=== PATIENT | male | born 1945 | race Caucasian/White ===

== ENCOUNTER 2019-11-01 09:28 | Outpatient (CLI) | payer MEDICARE, OTHER, SELFPAY ==
[2019-11-01 10:17] LABS: Hematocrit 43.1 % (42.0-52.0); Hemoglobin 14.9 g/dL (14.0-18.0); Mean Corpuscular HGB Conc 34.6 g/dl (32-36); Mean Corpuscular Hemoglobin 31.9 pg (26-34); Mean Corpuscular Volume 92.3 fl (80-100); Mean Platelet Volume 10.1 fl (7.4-10.4); Platelet Count Result 297 k/mm3 (150-375); Red Blood Count 4.67 M/mm3 (4.6-6.20); Red Cell Distribution Width 12.8 % (11.5-14.5); White Blood Count 8.2 K/mm3 (4.5-10.0)
[2019-11-01 10:45] LABS: Alanine Aminotransferase 21 U/L (4-50); Alkaline Phosphatase 80 U/L (38-126); Aspartate Amino Transferase 19 U/L (17-59); Bilirubin,Total 0.9 mg/dL (0.2-1.3); Blood Urea Nitrogen 15 mg/dL (9-20); Calcium 9.2 mg/dL (8.4-10.2); Carbon Dioxide 30 mmol/L (22-30); Chloride 96 mmol/L (98-107); Cholesterol 158 mg/dL (0-200); Estimated Glomerular Filt Rate 59; Glucose 121 mg/dL (75-110); HDL Direct 22 mg/dL; Potassium 3.4 mmol/L (3.4-5.0); Sodium 137 mmol/L (137-145); Triglycerides 262 mg/dL (<150)
[2019-11-01 10:56] LABS: LDL Cholesterol Direct 82 mg/dL
[2019-11-01 18:25] LABS: Hemoglobin A1C 6.1 % (<5.7)
== END 2019-11-01 09:29 | disposition home or self-care (01) ==
PROVIDERS: PCP Family Medicine; Visit Provider Physician Assistant
DX: R73.01 Impaired fasting glucose (principal)
CPT/HCPCS: 36415; 80053; 80061; 83036; 84443; 85027

== ENCOUNTER 2019-12-04 13:55 | Outpatient (CLI) | payer MEDICARE, OTHER, SELFPAY ==
--- NOTE | ~2019-12-04 | US_ITS ---
EXAMINATION: US venous doppler LE EXAM DATE: 12/04/2019 14:34 INDICATION: Right leg swelling. DVT. TECHNIQUE: Multiple grayscale, color flow and Doppler images of the right lower extremity deep venous system obtained and reviewed. Comparison is made to prior examination from 10/18/2014. FINDINGS: RIGHT SIDE Common femoral: -------- Normal. Profunda femoral: ------- Normal. Femoral: Normal. Popliteal: Normal. Posterior tibial: ---------Thrombosed. Peroneal: Thrombosed. Gastrocnemius: Not visualized. Soleus: Not visualized. Greater saphenous: ----- Normal. Lesser saphenous: ------ Not visualized. IMPRESSION: Positive for right calf DVT. I discussed DVT with Dr. Tejeda at 12/04/2019 14:41 CDT . Reviewed, dictated and finalized at location B.
[2019-12-04 15:32] LABS: Basophils Absolute Auto 0.1 K/mm3 (0.0-0.1); Eosinophils Absolute Auto 0.4 K/mm3 (0-0.3); Eosinophils Percent Auto 4.3 % (0-4.4); Hemoglobin 15.3 g/dL (14.0-18.0); Immature Granulocyte Absolute 0.02 K/mm3 (0.00-0.031); Immature Granulocyte Percent A 0.2 % (0-0.5); Lymphocytes Absolute Auto 2.49 K/mm3 (0.9-3.2); Lymphocytes Percent Auto 30.3 % (18.3-44.2); Mean Corpuscular Hemoglobin 32.5 pg (26-34); Mean Corpuscular Volume 95.5 fl (80-100); Monocytes Absolute Auto 0.9 K/mm3 (0.1-0.6); Monocytes Percent Auto 10.7 % (2.6-8.5); Neutrophils Absolute Auto 4.4 K/mm3 (1.3-6.7); Neutrophils Percent Auto 53.5 % (45.5-73.1); Platelet Count Result 295 k/mm3 (150-375); Red Blood Count 4.71 M/mm3 (4.6-6.20); Red Cell Distribution Width 12.9 % (11.5-14.5); White Blood Count 8.2 K/mm3 (4.5-10.0)
[2019-12-04 15:48] LABS: Alanine Aminotransferase 20 U/L (4-50); Albumin Level 4.3 g/dL (3.5-5.1); Alkaline Phosphatase 81 U/L (38-126); Aspartate Amino Transferase 22 U/L (17-59); Bilirubin,Total 0.5 mg/dL (0.2-1.3); Blood Urea Nitrogen 18 mg/dL (9-20); Calcium 9.8 mg/dL (8.4-10.2); Carbon Dioxide 36 mmol/L (22-30); Chloride 97 mmol/L (98-107); Estimated Glomerular Filt Rate > 60; Glucose 108 mg/dL (75-110); Potassium 3.9 mmol/L (3.4-5.0); Sodium 138 mmol/L (137-145)
== END 2019-12-04 13:56 | disposition home or self-care (01) ==
PROVIDERS: PCP Family Medicine; Visit Provider Physician Assistant
DX: R60.0 Localized edema (principal); F32.9 Major depressive disorder, single episode, unspecified; I10 Essential (primary) hypertension; I82.4Z1 Acute embolism and thrombosis of unspecified deep veins of right distal lower extremity
CPT/HCPCS: 36415; 80053; 85025; 93971

== ENCOUNTER 2020-01-01 17:07 | Outpatient (CLI) | payer MEDICARE, OTHER, SELFPAY ==
--- NOTE | ~2020-01-01 | US_ITS ---
EXAMINATION: US venous doppler [facility] EXAM DATE: 01/01/2020 17:34 INDICATION: Bilateral lower extremity pain. TECHNIQUE: Multiple grayscale, color flow and Doppler images of the lower extremity deep venous syste ms bilaterally were obtained and reviewed. Comparison is made to prior examination from 12/04/2019. FINDINGS: Right side: The right common femoral, femoral and profunda veins demonstrate normal color flow, respi ratory variation, augmentation and compressibility. Compressibility, color flow confirmed within the right popliteal, posterior tibial, peroneal, and greater saphenous veins. Left side: The left common femoral, femoral and profunda veins demonstrate normal color flow, respira tory variation, augmentation and compressibility. Compressibility, color flow confirmed within the l eft popliteal, posterior tibial, peroneal, and greater saphenous veins. IMPRESSION: 1. No lower extremity deep venous thrombosis bilaterally. Reviewed, dictated and finalized at location A.
== END 2020-01-01 17:08 | disposition home or self-care (01) ==
PROVIDERS: PCP Family Medicine; Visit Provider Physician Assistant
DX: R60.0 Localized edema (principal); M79.605 Pain in left leg; M79.604 Pain in right leg
CPT/HCPCS: 93970

== ENCOUNTER 2020-01-05 11:45 | Outpatient (CLI) | payer MEDICARE, OTHER, SELFPAY ==
[2020-01-05 12:19] LABS: Basophils Absolute Auto 0.1 K/mm3 (0.0-0.1); Basophils Percent Auto 0.8 % (0.2-1.2); Eosinophils Absolute Auto 0.3 K/mm3 (0-0.3); Eosinophils Percent Auto 3.6 % (0-4.4); Hematocrit 44.2 % (42.0-52.0); Hemoglobin 15.4 g/dL (14.0-18.0); Immature Granulocyte Absolute 0.03 K/mm3 (0.00-0.031); Immature Granulocyte Percent A 0.4 % (0-0.5); Lymphocytes Absolute Auto 2.72 K/mm3 (0.9-3.2); Mean Corpuscular HGB Conc 34.8 g/dl (32-36); Mean Corpuscular Hemoglobin 32.6 pg (26-34); Mean Corpuscular Volume 93.6 fl (80-100); Monocytes Absolute Auto 0.9 K/mm3 (0.1-0.6); Monocytes Percent Auto 11.1 % (2.6-8.5); Neutrophils Percent Auto 50.1 % (45.5-73.1); Platelet Count Result 320 k/mm3 (150-375); Red Blood Count 4.72 M/mm3 (4.6-6.20); Red Cell Distribution Width 12.5 % (11.5-14.5)
== END 2020-01-05 11:46 | disposition home or self-care (01) ==
PROVIDERS: PCP Family Medicine; Visit Provider Physician Assistant
DX: R23.3 Spontaneous ecchymoses (principal); I10 Essential (primary) hypertension
CPT/HCPCS: 36415; 84443; 85025

== ENCOUNTER 2020-01-12 13:42 | Outpatient (CLI) | payer MEDICARE, OTHER, SELFPAY ==
[2020-01-12 14:24] LABS: NT Pro B Type Natriuretic Pept 77 PG/ML (5-100)
[2020-01-12 14:26] LABS: D Dimer 0.35 ug/mL (<0.48)
== END 2020-01-12 13:43 | disposition home or self-care (01) ==
PROVIDERS: PCP Family Medicine; Visit Provider Physician Assistant
DX: R06.02 Shortness of breath (principal)
CPT/HCPCS: 36415; 83880; 85380

== ENCOUNTER 2020-01-29 15:16 | Outpatient (CLI) | payer MEDICARE, OTHER, SELFPAY ==
[2020-01-29 16:27] LABS: Blood Urea Nitrogen 21 mg/dL (9-20); Calcium 9.4 mg/dL (8.4-10.2); Carbon Dioxide 32 mmol/L (22-30); Chloride 100 mmol/L (98-107); Estimated Glomerular Filt Rate > 60; Glucose 88 mg/dL (75-110); Potassium 3.6 mmol/L (3.4-5.0); Sodium 138 mmol/L (137-145)
== END 2020-01-29 15:17 | disposition home or self-care (01) ==
PROVIDERS: PCP Family Medicine; Visit Provider Physician Assistant
DX: R60.0 Localized edema (principal); I10 Essential (primary) hypertension
CPT/HCPCS: 36415; 80048

== ENCOUNTER 2020-01-30 14:36 | Outpatient (CLI) | payer MEDICARE, OTHER, SELFPAY ==
[2020-01-30 15:28] LABS: Blood Urea Nitrogen 18 mg/dL (9-20); Calcium 8.9 mg/dL (8.4-10.2); Carbon Dioxide 32 mmol/L (22-30); Chloride 101 mmol/L (98-107); Estimated Glomerular Filt Rate > 60; Glucose 113 mg/dL (75-110); Potassium 3.9 mmol/L (3.4-5.0); Sodium 139 mmol/L (137-145)
== END 2020-01-30 14:37 | disposition home or self-care (01) ==
PROVIDERS: PCP Family Medicine; Visit Provider Internal Medicine Cardiovascular Disease
DX: R60.0 Localized edema (principal); N18.9 Chronic kidney disease, unspecified
CPT/HCPCS: 36415; 80048

== ENCOUNTER 2020-03-17 09:29 | Emergency (ER) | payer MEDICARE, OTHER, SELFPAY ==
--- NOTE | ~2020-03-17 | US_ITS ---
EXAMINATION: US arterial ankle brachial ind DATE: 03/17/2020 12:44 INDICATION: Decreased peripheral pulses TECHNIQUE: Segmental pressures and plethysmographic and Doppler waveforms of the brachial and lower e xtremity arteries were obtained. COMPARISON: None. FINDINGS: Right and left brachial artery pressures of 151 mm Hg and 155 mm Hg, respectively, are concordant (no rmal difference <= 30 mmHg). The right ankle-brachial index (ALISSA) is 1.08. The right great toe-brachial index (TBI) is 0.86 (norm al >= 0.65). The right lower extremity segmental pressure gradients are normal (normal gradients <= 2 0-30 mmHg between adjacent levels on the same leg or the same levels on the two legs). Arterial Doppl er waveforms are normal. The left ALISSA is 1.1. The left TBI is 0.85. The left lower extremity segmental pressure gradients are normal. Arterial Doppler waveforms are normal. IMPRESSION: 1. Normal examination. Reviewed, dictated and finalized at location A. IMPRESSION: 1. Normal examination.
--- NOTE | ~2020-03-17 | US_ITS ---
EXAMINATION: US venous doppler [facility] DATE: 03/17/2020 12:44 INDICATION: Left lower limb pain and swelling TECHNIQUE: Pelletier scale images without and with compression and Doppler images of the left lower extrem ity veins were obtained. COMPARISON: None FINDINGS: The left common femoral vein, profunda femoral vein, femoral vein, popliteal vein, peroneal trunk, posterior tibial veins, and greater saphenous vein are patent. IMPRESSION: 1. Patent left lower extremity veins. No evidence of deep venous thrombosis. Reviewed, dictated and finalized at location A.
--- NOTE | ~2020-03-17 | CT_ITS ---
EXAMINATION: CTA abd aorta runoff DATE: 03/17/2020 12:06 INDICATION: Left leg numbness and pain TECHNIQUE: Computed tomographic angiography (CTA) of the abdomen, pelvis, and both lower extremities was performed with 150 mL Omnipaque-350 intravenous contrast. The dose-length product (DLP) was 1708. 98 mGy-cm. Maximum intensity projection 3D-reconstructions of the arteries were created by the techno [employer] on a separate workstation. Automated exposure control and iterative reconstruction technique w ere employed. COMPARISON: 12/12/2012 FINDINGS: ABDOMINAL AORTA AND ITS BRANCHES: There is calcified atherosclerosis of the aorta. There is no dissection or aneurysm of the abdominal aorta. The left renal artery is truncated at its origin related to prior left nephrectomy. The left h epatic artery arises from the left gastric artery which arises directly from the abdominal aorta. The celiac axis is otherwise normal in appearance. The superior mesenteric artery and inferior mesenteri c artery are unremarkable. Two right renal arteries are noted. PELVIC VASCULATURE: There is calcified atherosclerosis without hemodynamically significant stenosis. RIGHT LOWER EXTREMITY VASCULATURE: There is calcified atherosclerosis throughout the superficial femoral artery. There are short segment s of moderate stenosis of the distal superficial femoral artery. There is calcified atherosclerosis a nd mild stenosis of the distal popliteal artery. There is calcified atherosclerosis and mild stenosis of the tibial peroneal trunk. There is calcified atherosclerosis without significant stenosis involv ing the proximal posterior tibial artery. The anterior tibial and peroneal arteries are unremarkable. There is a three-vessel runoff at the ankle. LEFT LOWER EXTREMITY VASCULATURE: There is calcified atherosclerosis throughout the superficial femoral artery with some areas of mild stenosis. The popliteal artery demonstrates atherosclerosis without hemodynamically significant steno sis. There is calcified atherosclerosis of the tibial peroneal trunk without hemodynamically signific ant stenosis. Calcified atherosclerosis without significant stenosis is also noted involving the prox imal posterior tibial artery. The anterior tibial and peroneal arteries are unremarkable. There is a three-vessel runoff at the ankle. ADDITIONAL FINDINGS: There is a 9 mm cyst in the left hepatic lobe. The gallbladder, spleen, pancreas, and adrenal glands are normal. The left kidney is surgically absent. Cysts of the right kidney measure up to 3.5 cm. No pathologically enlarged abdominal or pelvic lymph nodes are identified. There is no free intraperiton eal gas or evidence of bowel obstruction. A moderate volume of colonic stool is present. There is sev ere lumbar spondylosis. Bilateral total hip arthroplasties are noted. IMPRESSION: 1. Arterial disease as detailed above. Reviewed, dictated and finalized at location A.
[2020-03-17 09:30] VITALS: BP 150/71; PULSE 61; RESP 17; TEMP 36.2; O2SAT 100
[2020-03-17 11:12] LABS: Basophils Absolute Auto 0.1 K/mm3 (0.0-0.1); Basophils Percent Auto 0.9 % (0.2-1.2); Eosinophils Absolute Auto 0.2 K/mm3 (0-0.3); Eosinophils Percent Auto 3.1 % (0-4.4); Hematocrit 45.2 % (42.0-52.0); Hemoglobin 15.9 g/dL (14.0-18.0); Immature Granulocyte Absolute 0.04 K/mm3 (0.00-0.031); Immature Granulocyte Percent A 0.5 % (0-0.5); Lymphocytes Absolute Auto 2.36 K/mm3 (0.9-3.2); Lymphocytes Percent Auto 30.3 % (18.3-44.2); Mean Corpuscular HGB Conc 35.2 g/dl (32-36); Mean Corpuscular Hemoglobin 32.6 pg (26-34); Mean Corpuscular Volume 92.6 fl (80-100); Mean Platelet Volume 9.9 fl (7.4-10.4); Monocytes Absolute Auto 0.8 K/mm3 (0.1-0.6); Monocytes Percent Auto 10.4 % (2.6-8.5); Neutrophils Absolute Auto 4.3 K/mm3 (1.3-6.7); Neutrophils Percent Auto 54.8 % (45.5-73.1); Platelet Count Result 295 k/mm3 (150-375); Red Blood Count 4.88 M/mm3 (4.6-6.20); Red Cell Distribution Width 13.2 % (11.5-14.5); White Blood Count 7.8 K/mm3 (4.5-10.0)
[2020-03-17 11:22] LABS: INR 2.2; Prothrombin Time 24.2 Seconds (11.1-14.7)
[2020-03-17 11:23] LABS: Partial Thromboplastin Time 50.6 SECONDS (22.3-36.8)
[2020-03-17 11:31] LABS: Blood Urea Nitrogen 19 mg/dL (9-20); CRP 0.9 mg/dL (<1.0); Calcium 8.7 mg/dL (8.4-10.2); Carbon Dioxide 29 mmol/L (22-30); Chloride 102 mmol/L (98-107); Estimated CRCL calculation 72 ml/min; Estimated Glomerular Filt Rate > 60; Glucose 109 mg/dL (75-110); Potassium 3.8 mmol/L (3.4-5.0); Sodium 138 mmol/L (137-145)
[2020-03-17 12:04] LABS: Erythrocyte Sedimentation Rate 19 mm/hr (0-20)
--- NOTE | 2020-03-17 12:06 | ED.LOWEXIN ---
HPI - Extremity Injury (Lower) General Chief Complaint: Extremity Injury, Lower <Ana Ornelas PA-C - Last Filed: 03/17/20 14:35> Stated Complaint: left leg numbness, leg pain <Ana Ornelas PA-C - Last Filed: 03/17/20 14:35> Time Seen by Provider: 03/17/20 10:14 <Ana Ornelas PA-C - Last Filed: 03/17/20 14:35> Source: patient <Ana Ornelas PA-C - Last Filed: 03/17/20 14:35> Mode of arrival: ambulatory <FABIO Nixon Last Filed: 03/17/20 14:35> Limitations: no limitations <Ana Ornelas PA-C - Last Filed: 03/17/20 14:35> History of Present Illness HPI Narrative: This is a 75-year-old male that presents the emergency department for left lower extremity pain since yesterday. No known injury or trauma. Reports pain starts in the left groin and radiates to the knee. Reports tingling from his knee into his toes on the left leg. Reports history of DVT in the right leg and is currently on Xarelto. Reports edema to both of the lower extremities. Denies fever or erythema. <nAa Ornelas PA-C - Last Filed: 03/17/20 14:35> Related Data Home Medications: Home Medications Medication Instructions Recorded Confirmed aspirin 81 mg tablet,delayed 81 mg PO DAILY 08/17/19 release <Ana Ornelas PA-C - Last Filed: 03/17/20 14:35> Allergies/Adverse Reactions: Allergies Allergy/AdvReac Type Severity Reaction Status Date / Time morphine Allergy Unknown Confusion Verified 03/17/20 09:38 <FABIO Nixon Last Filed: 03/17/20 14:35> Review of Systems Review of Systems: Narrative: CONSTITUTIONAL: Denies fever SKIN: Denies rash MUSCULOSKELETAL: Reports joint pain, and myalgia. NEUROLOGIC: Denies numbness, or weakness. <FABIO Nixon Last Filed: 03/17/20 14:35> All systems reviewed & are unremarkable except as noted in HPI and below <Ana Ornelas PA-C - Last Filed: 03/17/20 14:35> [facility] Past Medical History Medical History: Medical History (Updated 03/17/20 @ 14:34 by Ana Ornelas PA-C) Acute pain of left knee Bilateral lower extremity edema Edema of left lower extremity Hearing loss IFG (impaired fasting glucose) Pain of right lower leg Right leg DVT Shortness of breath Vision abnormalities Weight gain <Ana Ornelas PA-C - Last Filed: 03/17/20 14:35> Surgical History Surgical History: Surgical History (Updated 10/11/19 @ 12:45 by Cecily Peck, RT(R)) H/O colectomy 28 H/O left nephrectomy History of appendectomy Hx of bilateral hip replacements <Ana Ornelas PA-C - Last Filed: 03/17/20 14:35> Social History Social History: Social History Smoking status: Former smoker Second hand tobacco smoke exposure: No Smoking end date: 08/30/03 Alcohol intake: current Drinks per week: 6 Substance use: never Substance use type: does not use Gender identity (if verbalized by the patient): Male <Ana Ornelas PA-C - Last Filed: 03/17/20 14:35> Exam Narrative: Exam Narrative: GENERAL: Well-appearing, well-nourished, and in no acute distress. HEAD: Normocephalic, atraumatic. EYES: EOMI. CHEST: Clear to auscultation. No respiratory distress. No wheezes rales or rhonchi HEART: Regular rate and rhythm. No murmur heard. Normal peripheral pulses. BACK: No midline spinal tenderness EXTREMITIES: Normal range of motion. Mild pitting edema to the bilateral lower extremities. No erythema or warmth. Strength equal in bilateral lower extremities (5/5). Could not obtain DP pulses by Doppler. Posterior tibial pulses were obtained bilaterally SKIN: Warm, dry, no rash. NEURO: No focal deficits. Alert and oriented x3. PSYCH: Normal mood and affect <Ana Ornelas PA-C - Last Filed: 03/17/20 14:35> Course Consultations Consultation #1: Spoke with patient's primary about work-up will follow-up in cli
[2020-03-17 13:29] VITALS: BP 166/82; PULSE 61; RESP 17; TEMP 36.6; O2SAT 97
[2020-03-17] MEDS: KETOROLAC 30 MG/ML VIAL (*BKC) IV PUSH (14:20)
== END 2020-03-17 15:00 | disposition home or self-care (01) ==
PROVIDERS: Physician Assistant; Emergency Provider General Practice; PCP Family Medicine
DX: M79.652 Pain in left thigh (principal); Z79.01 Long term (current) use of anticoagulants; Z86.718 Personal history of other venous thrombosis and embolism; Z87.891 Personal history of nicotine dependence; Z79.82 Long term (current) use of aspirin; I70.203 Unspecified atherosclerosis of native arteries of extremities, bilateral legs; I70.8 Atherosclerosis of other arteries; I70.0 Atherosclerosis of aorta; K76.89 Other specified diseases of liver; Z90.49 Acquired absence of other specified parts of digestive tract; Z96.643 Presence of artificial hip joint, bilateral
CPT/HCPCS: 36415; 75635; 80048; 85025; 85610; 85652; 85730; 86140; 93922; 93971; 96365; 96375; 99284; J0131; J1885; J3360; Q9967

== ENCOUNTER 2020-05-21 03:33 | Outpatient (CLI) | payer MEDICARE, OTHER, SELFPAY ==
[2020-05-21 20:04] LABS: SARS-CoV-2 RNA PCR Negative
== END 2020-05-21 03:34 | disposition home or self-care (01) ==
LOC: ANHCOVIDDT 03:33
PROVIDERS: PCP Family Medicine; Visit Provider Internal Medicine Critical Care Medicine
DX: Z01.812 Encounter for preprocedural laboratory examination (principal); Z20.828 Contact with and (suspected) exposure to other viral communicable diseases
CPT/HCPCS: 87635; C9803; U0003

== ENCOUNTER 2020-05-23 08:02 | Outpatient (CLI) | payer MEDICARE, OTHER, SELFPAY ==
--- NOTE | 2020-06-09 21:51 | SLEEP_ITS ---
CPAP TITRATION. DATE OF STUDY: 05/23/2020 REASON FOR THIS STUDY: History of sleep apnea on CPAP, 6 cm no longer effective. HISTORY: This patient is a 75-year-old man, 73 inches tall, weighing 275 pounds with a body mass index of 36.3. He has been on CPAP for many years, currently has been using his third device, which he received a few months ago. He uses it regularly, but it does not benefit him as much as it did initially. He wakes with a dry mouth, drinks a large glass of water when he wakes in the morning. Bedtime is 9:00 p.m. to 10:00 p.m., sometimes falling asleep quickly and sometimes taking longer. He uses an [id number] medication to help him fall asleep. He wakes frequently at night feeling short of breath even while wearing CPAP. He snores loudly using CPAP, has dreams, but does not recall dream content. He wakes in the morning between 6:00 a.m. and 7:00 a.m. not feeling refreshed. His legs bother him at night with discomfort and he has a history of bilateral hip replacements. He sleeps at night, curled on his side with a pillow between his legs. He has nocturia 2-3 times per night He and his sleep in separate rooms. He sleeps up stairs and she sleeps downstairs as she is in the advanced stages of Parkinson disease in a hospital bed. He drinks very little caffeine. He falls asleep during the day, does not use CPAP with naps,takes a nap 2-3 times a week without CPAP. He occasionally has trouble sleeping with a cold and he only occasionally gasps for breath at night. He occasionally sweats excessively at night, rarely notices his heart pounding or beating irregularly at night, occasionally falls asleep involuntarily, but never while driving. He does not have loss of muscle tone with strong emotion and does not have daytime difficulties due to excessive sleepiness. He is retired. He does not feel paralyzed on waking or falling asleep. He occasionally has vivid dreamlike scenes upon awakening or falling asleep. He is never afraid to go to sleep. He rarely has nightmares. He does not remember his dreams. He rarely has racing thoughts. He denies feelings of sadness, depression, or anxiety. He rarely has muscular tension and rarely notices parts of his body jerking. He rarely kicks at night. He occasionally has crawly achy feelings in his legs, rarely has leg pain at night. He denies morning jaw pain and does not grind his teeth at night. He frequently is bothered by pain during the day, occasionally is awakened by pain at night. He occasionally wakes up feeling stiff in the morning with sore achy muscles and pain in the neck and spine. He has bowel disturbances, stomach problems, memory problems, sexual problems, takes antacids regularly and he has frequent headaches. He has significant acid reflux. He has lost some weight in the last year. His collar size is 17.5 inches. DESCRIPTION OF STUDY: This study was conducted as a full night nocturnal polysomnogram using the [employer] multiple channel system including EOG, EEG, submental EMG, EKG, nasal and oral airflow using thermistors and nasal pressure sensors, chest and abdominal belts, body position data and pulse oximetry. Video monitoring was used. The study was scored using CMS guidelines. The [place] Sleepiness Scale Score was not completed in detail, but he did indicate increased chance of dozing with multiple episodes with a total estimate at 11. His total recording time was 465.3 minutes. Sleep time was 334.5 minutes. The sleep efficiency was 71.9%. Sleep latency was normal at 20.4 minutes. REM latency was short at 37 minutes consistent with hypersomnolence. He had 26 awakenings and spent 24.8% of the study awake after sleep onset, 110.4 minutes. Sleep architecture showed 8.5% stage I sleep, 53.
== END 2020-05-23 08:03 | disposition home or self-care (01) ==
LOC: ANHCSM 08:03
PROVIDERS: PCP Family Medicine; Visit Provider Internal Medicine Critical Care Medicine
DX: J44.9 Chronic obstructive pulmonary disease, unspecified (principal); R06.02 Shortness of breath; R00.1 Bradycardia, unspecified; M54.5 Low back pain
CPT/HCPCS: 95811

== ENCOUNTER 2020-05-30 16:22 | Emergency (ER) | payer MEDICARE, OTHER, SELFPAY ==
[2020-05-30] VITALS (21 sets, daily range): BP systolic 101–144; BP diastolic 59–103; PULSE 56–113; RESP 16–23; TEMP 36.3–36.8; O2SAT 97–100
--- NOTE | ~2020-05-30 | CT_ITS ---
EXAMINATION: CTA BRAIN/CAROTID DATE: 05/30/2020 18:43 INDICATION: Headache and blurred vision in the right eye TECHNIQUE: Computed tomographic angiography (CTA) of the head and neck was performed with 100 mL Omni paque-350 intravenous contrast. Multiplanar reconstructions and maximum intensity projection 3D-recon structions of the carotid arteries and of the intracranial arteries were created by the technologist on a separate workstation. Precontrast CT of the head was also obtained. Automated exposure control and iterative reconstruction technique were employed.The dose-length product was 1942.75 mGy-cm. COMPARISON: None. FINDINGS: Carotid arteries: There is small amount of calcified atherosclerotic plaque with 0% stenosis at both the right and left carotid bulbs relative to normal distal artery lumen diameter (NASCET criteria). Cervical soft tissu es are unremarkable. Mild emphysema in the upper lungs. Severe cervical spondylosis. Head: No acute intracranial hemorrhage, acute infarction or abnormal extra axial fluid collection. Small ol d lacunar infarct at the right basal ganglia. There is moderate scattered white matter hypoattenuatio n consistent with chronic small vessel ischemic disease. Symmetric prominence of the sulci and ventri cles consistent with moderate age-appropriate diffuse cerebral volume loss. No mass/mass effect. Cleaning ges of bilateral intraocular lens replacement. The orbits, paranasal sinuses and mastoid air cells ar e normal. Intracranial arteries There is calcite atherosclerosis without hemodynamically significant stenosis at the bilateral caroti d siphons and at the bilateral intracranial vertebral arteries which are codominant. There is no hemo dynamically significant stenosis in the basilar artery. There are no aneurysms identified. Both A1 a nd P1 segments are patent. Cerebral arterial arborization appears symmetric. IMPRESSION: 1. Small amount of atherosclerotic plaque with 0% stenosis of the left and right carotid bulbs relati ve to normal distal artery lumen diameter (NASCET criteria). 2. 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 No acute intracranial process. 3. Age-related changes in the brain including moderate diffuse volume loss and moderate scattered whi te matter hypoattenuation consistent with chronic small vessel ischemic disease. 4. Small amount of not hemodynamically significant calcite atherosclerosis at the bilateral carotid s iphons and intracranial vertebral arteries. Otherwise unremarkable cerebral angiogram. Reviewed, dictated and finalized at location A. IMPRESSION: 1. Small amount of atherosclerotic plaque with 0% stenosis of the left and righ t carotid bulbs relative to normal distal artery lumen diameter (NASCET criteri a). 2. 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 No acute intracranial process. 3. Age-related changes in the brain including moderate diffuse volume loss and moderate scattered white matter hypoattenuation consistent with chronic small v essel ischemic disease. 4. Small amount of not hemodynamically significant calcite atherosclerosis at t he bilateral carotid siphons and intracranial vertebral arteries. Otherwise unr emarkable cerebral angiogram.
--- NOTE | 2020-05-30 16:55 | ED.HA ---
HPI - Headache General Chief Complaint: Headache Stated Complaint: severe pain neck to right eye Time Seen by Provider: 05/30/20 16:48 Source: patient Mode of arrival: ambulatory Limitations: no limitations History of Present Illness HPI Narrative: Patient is a 75 yo male who presents c/o right posterior headaches x 2 days. Reports headache increasing today and is 10/10 with blurred vision to right eye onset today. He reports radiation of pain at times into right neck. He reports recent RLE DVT and is on xarelto at this time. He denies injury and denies history of migraines. He denies all other complaints at this time. MD elicited complaint: headache Onset description: suddenly Location: right, occipital and down into neck Severity: severe Quality & Timing: sharp Exacerbating factors: none Relieving factors: nothing Associated symptoms: vision loss Treatments prior to arrival: none Related Data Home Medications Medication Instructions Recorded Confirmed aspirin 81 mg tablet,delayed 81 mg PO DAILY 08/17/19 03/29/20 release furosemide 05/30/20 Allergies Allergy/AdvReac Type Severity Reaction Status Date / Time morphine Allergy Unknown Confusion Verified 05/30/20 16:27 Review of Systems Review of Systems: Narrative: CONSTITUTIONAL: Denies fever, chills, or sweats. EYES: Reports blurred vision in right eye. ENT: Denies rhinorrhea, congestion, sore throat, or otalgia. CARDIOVASCULAR: Denies chest pain, palpitations, or edema. RESPIRATORY: Denies cough or dyspnea. GASTROINTESTINAL: Denies abdominal pain, nausea, vomiting, or diarrhea. GENITOURINARY: Denies dysuria or hematuria. SKIN: Denies rash or itching. MUSCULOSKELETAL: Denies back pain, joint pain, or myalgia. NEUROLOGIC: Denies headache, numbness, dizziness, or weakness. PSYCHIATRIC: Denies anxiety or depression. Discussed with [facility] Past Medical History Medical History Acute pain of left knee Bilateral lower extremity edema COPD (chronic obstructive pulmonary disease) Edema of left lower extremity Hearing loss History of tobacco abuse IFG (impaired fasting glucose) MELANIE on CPAP Pain of right lower leg Right leg DVT Shortness of breath Vision abnormalities Weight gain Surgical History Surgical History H/O colectomy 28 H/O left nephrectomy History of appendectomy Hx of bilateral hip replacements Family History Family History Sibling Malignant neoplasm of prostate Family history of pancreatic cancer Family history of lung cancer Social History Social History Social History: , lives with his who has advanced Parkinson's disease, 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 Smoking packs per day: 3 Smoking cigarettes per day: 60.0 Years smoked: 7 Smoking pack-years: 21.00 Smoking status: Former smoker Second hand tobacco smoke exposure: No Smoking end date: 08/30/03 Alcohol intake: current Drinks per week: 6 Substance use: never Substance use type: does not use Gender identity (if verbalized by the patient): Male Exam Narrative: Exam Narrative: GENERAL: Well-appearing, well-nourished, and in no acute distress. HEAD: Normocephalic, atraumatic. EYES: EOMI. PERRLA. No redness or drainage. Conjunctiva are normal. ENT: Mucous membranes pink and moist. Nares clear. No rhinorrhea. TMs normal bilaterally. Throat normal. Uvula midline. NECK: AROM. Supple. No lymphadenopathy. CHEST: No respiratory distress. Clear to auscultation. HEART: Regular rate and rhythm. No murmur appreciated. Normal peripheral pulses. GI: Soft, nontender without rebound, or guarding. No distention. Bowel so
[2020-05-30 17:13] LABS: Basophils Absolute Auto 0.1 K/mm3 (0.0-0.1); Eosinophils Absolute Auto 0.3 K/mm3 (0-0.3); Eosinophils Percent Auto 3.3 % (0-4.4); Hematocrit 42.4 % (42.0-52.0); Hemoglobin 15.2 g/dL (14.0-18.0); Immature Granulocyte Absolute 0.06 K/mm3 (0.00-0.031); Immature Granulocyte Percent A 0.7 % (0-0.5); Lymphocytes Absolute Auto 2.58 K/mm3 (0.9-3.2); Mean Corpuscular HGB Conc 35.8 g/dl (32-36); Mean Corpuscular Hemoglobin 33.4 pg (26-34); Mean Corpuscular Volume 93.2 fl (80-100); Mean Platelet Volume 9.6 fl (7.4-10.4); Monocytes Absolute Auto 0.9 K/mm3 (0.1-0.6); Monocytes Percent Auto 9.8 % (2.6-8.5); Neutrophils Percent Auto 56.2 % (45.5-73.1); Platelet Count Result 290 k/mm3 (150-375); Red Blood Count 4.55 M/mm3 (4.6-6.20); Red Cell Distribution Width 13.3 % (11.5-14.5); White Blood Count 8.9 K/mm3 (4.5-10.0)
[2020-05-30 17:25] LABS: INR 1.7; Prothrombin Time 19.6 Seconds (11.1-14.7)
[2020-05-30 17:26] LABS: Partial Thromboplastin Time 43.4 SECONDS (22.3-36.8)
[2020-05-30 17:27] LABS: Anion Gap 6 mmol/L (8-16); Blood Urea Nitrogen 15 mg/dL (9-20); Calcium 9.6 mg/dL (8.4-10.2); Carbon Dioxide 38 mmol/L (22-30); Chloride 96 mmol/L (98-107); Estimated CRCL calculation 65 ml/min; Estimated Glomerular Filt Rate 59; Glucose 114 mg/dL (75-110); Sodium 140 mmol/L (137-145)
[2020-05-30 20:46] LABS: Erythrocyte Sedimentation Rate 19 mm/hr (0-20)
== END 2020-05-30 21:16 | disposition home or self-care (01) ==
PROVIDERS: Emergency Provider Nurse Practitioner; PCP Family Medicine
DX: R51.9 Headache, unspecified (principal); Z79.82 Long term (current) use of aspirin; J44.9 Chronic obstructive pulmonary disease, unspecified; G47.33 Obstructive sleep apnea (adult) (pediatric); Z86.718 Personal history of other venous thrombosis and embolism; Z90.49 Acquired absence of other specified parts of digestive tract; Z90.5 Acquired absence of kidney; Z96.643 Presence of artificial hip joint, bilateral; Z87.891 Personal history of nicotine dependence
CPT/HCPCS: 36415; 70496; 70498; 80048; 85025; 85610; 85652; 85730; 96365; 99284; J0131; Q9967

== ENCOUNTER 2020-06-04 11:51 | Outpatient (CLI) | payer MEDICARE, OTHER, SELFPAY ==
--- NOTE | ~2020-06-04 | US_ITS ---
EXAMINATION: US venous doppler LE RT EXAM DATE: 06/04/2020 12:14 INDICATION: History of DVT. TECHNIQUE: Multiple grayscale, color flow and Doppler images of the right lower extremity deep venous system were obtained and reviewed. Comparison is made to prior examination from 01/01/2020. FINDINGS: The right common femoral, femoral and profunda veins demonstrate normal color flow, respira tory variation, augmentation and compressibility. Compressibility, color flow confirmed within the r ight popliteal, posterior tibial, peroneal, and greater saphenous veins. IMPRESSION: 1. No right lower extremity deep venous thrombosis. Reviewed, dictated and finalized at location B.
== END 2020-06-04 11:52 | disposition home or self-care (01) ==
PROVIDERS: PCP Family Medicine; Visit Provider Internal Medicine Cardiovascular Disease
DX: Z86.718 Personal history of other venous thrombosis and embolism (principal)
CPT/HCPCS: 93971

== ENCOUNTER 2020-06-20 11:12 | Outpatient (CLI) | payer MEDICARE, OTHER, SELFPAY ==
--- NOTE | ~2020-06-20 | XR_ITS ---
MODIFIED ESOPHAGRAM HISTORY: Dysphagia with shortness of breath. TECHNIQUE: Modified barium esophagram was performed on 06/20/2020. I administered fluoroscopy and per formed the exam with speech pathologist. Patient was seated for lateral fluoroscopic imaging for ing estion of thin liquids, pudding, solids and quantified amounts, followed by thin liquids in uncontrol led amounts. This was recorded on tape. A single fluoroscopic spot image was also recorded. The DAP f or this procedure was 4.536 Gycm2. The amount of fluoroscopy time used during this procedure was 2.3 minutes. FINDINGS: Oral stage: Adequate function. Pharyngeal stage: Adequate function. No evident residual penetration or aspiration. Cervical/esophageal stage: Adequate function. IMPRESSION: Patient tolerated regular consistency oral feedings in the upright position. Please calos elate with speech pathologist findings and specific feeding recommendations. Reviewed, dictated and finalized at location A. IMPRESSION: Patient tolerated regular consistency oral feedings in the upright position. Please correlate with speech pathologist findings and specific feedi ng recommendations.
--- NOTE | 2020-06-21 15:33 | STOPEVAL ---
MODIFIED BARIUM SWALLOW REPORT: Thank you for referring Jason Daigle to [facility].? 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 Musculoskeletal History Hx Joint Replacement Yes: bilateral hip replacements HEENT History Hx Cataracts Yes: bilateral cataracts removed May 2019 Hx Tonsillectomy Yes Other History Hx Cancer Yes: kidney and colon Prior Level of Function Prior Swallow Level Prior Intake Method Oral Prior Diet Regular (Level 7 Diet) Prior Liquid Consistency Thin (Level 0 Diet) Pain Assessment Timing of Pain Assessment Timing of Pain Assessment Assessment Self Report Self Report Pain Level 0 Pain Score Pain Score 0: Self Report Modified Barium Swallow Evaluation Recent Swallowing History Reports Dysphagia denies coughing during meals & choking Onset of Dysphagia unsure History of Dysphagia No History of Related Medical Diagnosis Severe Respiratory Problems History of Pneumonia No Reported Difficult Consistencies Unable to Identify Intake Method Prior to Swallow Oral Evaluation Diet Prior to Swallow Evaluation Regular, Level 7 Liquid Consistency Prior to Swallow Thin (0) Evaluation Consistency Solid Consistency Method of Presentation Spoon Oral Preparatory Symptoms None Oral Phase Symptoms None Pharyngeal Phase Symptoms None Severity of Vallecular Residue None - 0% No Residue Severity of Pyriform Sinus Residue None - 0% No Residue 8 Point Laryngeal Penetration-Aspiration Material Does Not Enter Airway Scale Cervical/Esophageal Symptoms None Mixed Consistency Method of Presentation Spoon Oral Preparatory Symptoms None Oral Phase Symptoms None Pharyngeal Phase Symptoms None Severity of Vallecular Residue None - 0% No Residue Severity of Pyriform Sinus Residue None - 0% No Residue 8 Point Laryngeal Penetration-Aspiration Material Does Not Enter Airway Scale
--- NOTE | 2020-06-25 11:10 | PFT_ITS ---
This report was moved to the correct visit, [id number], on June 27, 2020. Original report was signed by Dr. Ridley on June 25, 2020 at 1111. PFT Interpretation PFT Interpretation: This PFT met all criteria for ATS standards and reproducibility FEV/FVC post bronchodilator 53% FEV1 73% or 2.19 liters FVC 88% or 4.08 liters TLC 113% RV 135% RV/TLC 48% DLCO 66% or 18.1 liters when adjusted for alveolar volume but not adjusted for hemoglobin Flow volume loops showed significant expiratory coving. Impression: Moderate airflow obstruction with air trapping and mildly reduced diffusion capacity. This pattern is suggestive of COPD. Clinical correlation is advised. Report Initialized date/time: Aristeo Ridley MD 06/25/20 / 1110 Electronically signed by: Aristeo Ridley MD 06/25/20 1111 [facility]
--- NOTE | 2020-06-25 11:12 | SIXMIN_ITS ---
This report was moved to the correct visit, [id number], on June 27, 2020. Original report was signed by Dr. Ridley on June 25, 2020 at 1112. Six Minute Walk Six Minute Walk: The patients O2 sats started at 92% and dropped as low as 92% Total walk distance 304.8 meters conclusion: This patient does not qualify for home oxygen therapy. Report Initialized date/time: Aristeo Ridley MD 06/25/20 / 1112 Electronically signed by: Aristeo Ridley MD 06/25/20 1112 [facility]
== END 2020-06-20 11:13 | disposition home or self-care (01) ==
PROVIDERS: PCP Family Medicine; Visit Provider Internal Medicine Critical Care Medicine
DX: R13.10 Dysphagia, unspecified (principal); R06.02 Shortness of breath
CPT/HCPCS: 92611; 94060; 94618; 94726; 94729

== ENCOUNTER 2021-04-30 07:54 | Outpatient (CLI) | payer MEDICARE, OTHER, SELFPAY ==
[2021-04-30 08:24] LABS: Basophils Absolute Auto 0.1 K/mm3 (0.0-0.1); Basophils Percent Auto 0.9 % (0.2-1.2); Eosinophils Absolute Auto 0.3 K/mm3 (0-0.3); Eosinophils Percent Auto 3.4 % (0-4.4); Hematocrit 45.2 % (42.0-52.0); Hemoglobin 15.4 g/dL (14.0-18.0); Immature Granulocyte Absolute 0.04 K/mm3 (0.00-0.031); Immature Granulocyte Percent A 0.5 % (0-0.5); Lymphocytes Absolute Auto 2.74 K/mm3 (0.9-3.2); Lymphocytes Percent Auto 36.1 % (18.3-44.2); Mean Corpuscular HGB Conc 34.1 g/dl (32-36); Mean Corpuscular Hemoglobin 31.9 pg (26-34); Mean Corpuscular Volume 93.6 fl (80-100); Mean Platelet Volume 9.6 fl (7.4-10.4); Monocytes Absolute Auto 0.8 K/mm3 (0.1-0.6); Monocytes Percent Auto 10.3 % (2.6-8.5); Neutrophils Absolute Auto 3.7 K/mm3 (1.3-6.7); Neutrophils Percent Auto 48.8 % (45.5-73.1); Platelet Count Result 286 k/mm3 (150-375); Red Blood Count 4.83 M/mm3 (4.6-6.20); Red Cell Distribution Width 12.7 % (11.5-14.5); White Blood Count 7.6 K/mm3 (4.5-10.0)
[2021-04-30 08:36] LABS: Alanine Aminotransferase 23 U/L (4-50); Albumin Level 4.2 g/dL (3.5-5.1); Alkaline Phosphatase 79 U/L (38-126); Anion Gap 5 mmol/L (8-16); Aspartate Amino Transferase 20 U/L (17-59); Bilirubin,Total 0.7 mg/dL (0.2-1.3); Blood Urea Nitrogen 16 mg/dL (9-20); Calcium 9.3 mg/dL (8.4-10.2); Carbon Dioxide 30 mmol/L (22-30); Chloride 102 mmol/L (98-107); Cholesterol 147 mg/dL (0-200); Estimated Glomerular Filt Rate > 60; Glucose 105 mg/dL (65-110); HDL Direct 26 mg/dL; Sodium 137 mmol/L (137-145); Triglycerides 215 mg/dL (<150)
[2021-04-30 08:44] LABS: Hemoglobin A1C 5.8 % (<5.7)
[2021-04-30 08:47] LABS: LDL Cholesterol Direct 66 mg/dL
[2021-04-30 09:05] LABS: Prostate Specific Antigen 4.3 ng/mL (< OR = 4.0)
== END 2021-04-30 07:55 | disposition home or self-care (01) ==
PROVIDERS: PCP Family Medicine; Visit Provider Nurse Practitioner Family
DX: Z12.5 Encounter for screening for malignant neoplasm of prostate (principal); J44.9 Chronic obstructive pulmonary disease, unspecified; R73.01 Impaired fasting glucose; N40.1 Benign prostatic hyperplasia with lower urinary tract symptoms; I10 Essential (primary) hypertension; Z00.00 Encounter for general adult medical examination without abnormal findings
CPT/HCPCS: 36415; 80053; 80061; 83036; 84153; 84443; 85025; G0103

== ENCOUNTER 2021-07-31 01:15 | Day surgery (SDC) | payer MEDICARE, OTHER, SELFPAY ==
[2021-07-17 09:41] VITALS: BMI 39.4
--- NOTE | 2021-07-17 09:58 | PC.NURSE ---
Report to the Outpatient Waiting Room, entrance under the green pavilion located off [facility], at time _0830 __ on date _07/31/21 . OR Time: _1030 . - You and your visitor will be asked a series of questions to screen for COVID 19 for your protection. - A mask is required within the hospital. - Only one visitor is allowed at this time. Patient visitors will be guided where to wait when not with patient. Preoperative COVID Testing Requirements: No COVID Test needed if: (proof is required; if not received patient will have Rapid Test prior to entry) - Patient has received COVID Vaccine at least 14 days prior to procedure date or - Patient has positive COVID test result within last 90 days of surgery date. COVID Test needed if above criteria is not met If not COVID vaccinated a COVID test must be conducted within 72 hours of surgery and patient is asked to isolate self from time of testing until procedure. You will go to the [facility] for your COVID testing. The [facility] is located at the corner of [address] from [facility]. You will only be called if COVID results are positive and your surgeon may reschedule your elective surgery date. Patients may have clear liquids (water, carbonated beverages, clear teas, apple juice) until 3 hours prior to surgery (0730 AM) with a maximum of 20 ounces. - No food from midnight until time of surgery - Infants may have breast milk until 4 hours before surgery, infant formula 6 hours prior to surgery. - Children will be allowed to drink immediately following surgery. If applicable, please bring a bottle or sippy cup to assist with drinking. Juice, water, soda, and popsicles are readily available. For infants on formula, please bring formula the day of surgery. Pacifiers are allowed. Take the following medications with a SIP of water the morning of surgery: ____NONE Medications to discontinue per physician ___CALL DR. LYLES'S OFFICE REGARDING ASPIRIN Date to take last dose Please no make-up, nail yakut, hairspray, perfume, deodorant, or body powder the day of surgery. No jewelry (including any body piercings) or valuables the day of surgery, leave them at home. Please take a shower or bath the night before, or the morning of, surgery with an antibacterial soap. Wear comfortable, loose fitting clothing. Children are encouraged to wear pajamas. - Jewelry must be removed prior to entering the operating room. Rings and piercings that are not removed may be cut off. - The hospital will not accept responsibility for valuables. - Please leave all valuables, including medications, at home the day of surgery. If you are going home after surgery, a licensed cdl dedicated truck driver must drive you home. - NO public transportation without another adult. - We recommend that an adult stay with you for 24 hours following discharge. - We also recommend that you do not drive, make important decision, drink alcoholic beverages, or take any drugs that were not prescribed by your health care provider for at least 24 hours after your discharge time. For Pediatric surgeries, we recommend two adults accompany the child home (only one inside the building at this time). Follow any additional instructions given to you from your surgeon. Telephone instructions given to ____PT and asked if any additional questions and then verbalized understanding. Patient advised to call surgeon office or pre surgery nurse liaison [phone] if any additional questions.
--- NOTE | 2021-07-30 14:05 | WPDANESEPPF ---
Anes - Initial Pre Proc Eval Procedure: Operation Date: 07/31/21 10:30 Proposed Procedures p Bilateral Upper Eyelid Blepharoplasty, Bilateral Lower Eyelid Tarsal Strip Tightening - Cristian Khoury MD s Direct Brow Lift - Cristian Khoury MD Date/Time: 07/30/21 14:05 Surgeon: Cristian Khoury MD Pre Op Diagnosis: brow ptosis, dermatochalasis, ectropion Patient Data Age: 76 Gender: M Height: 1.85 m Weight: 135.45 kg Allergies Allergy/AdvReac Type Severity Reaction Status Date / Time morphine AdvReac Severe Confusion/Severe Verified 07/31/21 08:32 agitation Home Medications Medication Instructions Recorded Confirmed Type aspirin 81 mg tablet,delayed 81 mg PO DAILY 08/17/19 07/21/21 History release acetaminophen 300 mg-codeine 30 mg 1 tablet PO Q6H PRN #30 tablet 07/21/21 07/21/21 Rx tablet ascorbic acid (vitamin C) 1,000 mg 1 g PO DAILY 07/21/21 07/21/21 History tablet finasteride 5 mg tablet 5 mg PO DAILY 07/21/21 07/21/21 History furosemide 20 mg tablet 20 mg PO DAILY tablet 07/21/21 07/21/21 History gabapentin 100 mg capsule 100 mg PO QHS 07/21/21 07/21/21 History hydrochlorothiazide 12.5 mg tablet 12.5 mg PO DAILY 07/21/21 07/21/21 History multivitamin 1 tablet PO DAILY 07/21/21 07/21/21 History ondansetron HCl 4 mg tablet 4 mg PO Q6H PRN #30 tablet 07/21/21 07/21/21 Rx sildenafil 100 mg tablet 100 mg PO DAILY PRN 07/21/21 07/21/21 History tamsulosin 0.4 mg capsule 0.4 mg PO DAILY 07/21/21 07/21/21 History rivaroxaban 10 mg tablet 10 mg PO DAILY #30 tablet 07/23/21 Rx Patient hx anesthesia problems: none Family hx anesthesia problems: none Results Review: All pre-operative results and documents have been reviewed as part of the pre-operative evaluation. [facility] Past Medical History Medical History (Updated 07/30/21 @ 14:06 by Prabhjot Santana DO) Acute pain of left knee Bilateral lower extremity edema COPD (chronic obstructive pulmonary disease) Edema of left lower extremity Hearing loss History of tobacco abuse IFG (impaired fasting glucose) MELANIE on CPAP Pain of right lower leg Right leg DVT Sacral nerve stimulator present Shortness of breath Vision abnormalities Weight gain Surgical History Surgical History H/O colectomy 26 H/O left nephrectomy History of appendectomy Hx of bilateral hip replacements Family History Family History Sibling Malignant neoplasm of prostate Family history of pancreatic cancer Family history of lung cancer Social History Social History Social History: , lives with his who has advanced Parkinson's disease, 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 Smoking packs per day: 3 Smoking cigarettes per day: 60.0 Years smoked: 7 Smoking pack-years: 21.00 Smoking status: Former smoker Tobacco type: cigarettes Second hand tobacco smoke exposure: No Smoking end date: 08/30/03 Alcohol intake: current Drinks per week: 6 Alcohol use details: 5-6 beers on Wednesdays and sometimes on Fridays with friends at [facility] [facility] [employer]; this is his social time Substance use: never Substance use type: does not use Living arrangements: with family Additional living arrangements comments: LIVES WITH SPOUSE - SPOUSE CURRENTLY IN [facility] Gender identity (if verbalized by the patient): Male Spiritual care concerns: No Anes - Eval Final PreProcedure Day of Procedure 07/30/21 14:05 Patient weight: obese Heart: regular rate and rhythm Lungs: clear to auscultation and normal air movement Airway: Mallampati scale class II Neurological: alert and oriented Last oral intake: >/= 8 hours ASA classification: III Emergent: no Anes
[2021-07-31] VITALS (8 sets, daily range): BP systolic 121–168; BP diastolic 65–86; PULSE 48–62; RESP 13–20; TEMP 36.2; O2SAT 95–99
[2021-07-31] MEDS: LACTATED RINGERS 1,000 ML 30 ML IV CONT (08:45)
--- NOTE | 2021-07-31 09:26 | WPDHPUPDATE1 ---
History and Physical Update Update Date/Time: 07/31/21 09:26 History and Physical has been reviewed, including an updated exam of the patient. There are NO changes in the patient's condition. Risks, benefits, and alternatives have been discussed and questions answered. Patient agrees to proceed with procedure.
--- NOTE | 2021-07-31 09:51 | W.PM.PROC2 ---
Procedure Note - Detailed Date of Procedure 07/31/21 Pre-op Diagnosis brow ptosis, dermatochalasis, ectropion Post-op Diagnosis same Procedure Performed 1. Bilateral direct brow lift. 2. Bilateral upper eyelid blepharoplasty 3. Bilateral lower eyelid tarsal strip Surgeon Cristian Khoury MD Anesthesia general Description of Procedure Preoperatively the risks, benefits, alternatives were discussed in extensive detail. I wanted him to be very realistic about the risks involved as well as expectations. Made sure answered all of his questions to his satisfaction. This included aftercare. He voiced a clear understanding. All questions answered and consent obtained. He was marked in the preoperative holding area with his verification. The pinch test after stimulating anticipated brow position to make sure there was no lagophthalmos. He was taken to the operating room placed supine on the operating room table. Anesthesia provided by anesthesiology and prepped and draped in a standard sterile fashion. Surgical time-out was taken. 1% lidocaine and 0.25% Marcaine with epinephrine was used anesthetize locally. Fifteen blade used to make an incision above the brow. This of tissue was removed and I closed using 4-0 Monocryl and running subcuticular 5 0 Prolene. I then proceeded to the brow lift. I repeated the pinch test now that the brow lift been completed. Verified no lagophthalmos. I excised skin and open the medial and middle compartments removing just was necessary of adipose tissue. Verified strict hemostasis and closed using a running subcuticular 5 0 Prolene. These Prolenes were secured medial and lateral using Steri-Strips and benzoin. Bilateral lower eyelid canthotomy and cantholysis was completed. I created a tarsal strip which was sutured into position using double-arm 4-0 polyester. I closed the skin using 5 0 fast-absorbing gut. I placed bilateral lateral temporary tarsorrhaphy suture to protect the eyes. This was with a 5 0 nylon. I irrigated the eyes with BSS. He was awoke and taken to the PACU without difficulty. All instrument sponge counts were correct at the end of the case. Estimated Blood Loss 20 Drains No Packing No Pathology none sent Complications No immediate complications Condition stable Disposition PACU
[2021-07-31] MEDS: ceFAZolin 3 GM/D5W 100 ML 100 ML IVPB (10:05)
[2021-07-31] MEDS: BALANCED SALT SOLN OPHTH IRRIG 30 ML BTL EACH EYE (10:25)
[2021-07-31] MEDS: LIDO 1%/EPINEPHRINE/PF 1:200,000 30 ML VIAL XX (10:37)
[2021-07-31] MEDS: BUPIVACAINE HCL 0.25% PF 30 ML VIAL INFILTRATE (10:39)
[2021-07-31] MEDS: fentaNYL CITRATE INJ (*CRX) 100 MCG/2 ML VIAL 25 MCG IV PUSH (12:16)
--- NOTE | 2021-07-31 12:44 | SUR.PHASEI ---
[facility] AND XARELTO TOMORROW
[2021-07-31] MEDS: oxyCODONE HCL (*CRX) 5 MG TAB IR PO (13:24)
== END 2021-07-31 14:23 | disposition home or self-care (01) ==
PROVIDERS: PCP Family Medicine; Visit Provider Surgery Plastic and Reconstructive Surgery
PROC: (CPT 67917; principal; 2021-07-31 10:30)
PROC: (CPT 15824; 2021-07-31 10:30)
DX: H57.813 Brow ptosis, bilateral (principal); H02.834 Dermatochalasis of left upper eyelid; H02.831 Dermatochalasis of right upper eyelid; H02.102 Unspecified ectropion of right lower eyelid; H02.105 Unspecified ectropion of left lower eyelid; J44.9 Chronic obstructive pulmonary disease, unspecified; G47.33 Obstructive sleep apnea (adult) (pediatric); Z86.718 Personal history of other venous thrombosis and embolism; Z79.82 Long term (current) use of aspirin; Z90.5 Acquired absence of kidney; Z90.49 Acquired absence of other specified parts of digestive tract; Z87.891 Personal history of nicotine dependence; E66.9 Obesity, unspecified; Z68.39 Body mass index [BMI] 39.0-39.9, adult
CPT/HCPCS: 67917; 67900; A9270; J0171; J0330; J0690; J2250; J2405; J2704; J3010; J7120

== ENCOUNTER → 2021-08-09 01:34 | Outpatient (CLI) | payer MEDICARE, OTHER, SELFPAY ==
[2021-08-09 12:26] LABS: Influenza Control Positive
[2021-08-09 20:10] LABS: SARS-CoV-2 RNA PCR Negative
== END ==
PROVIDERS: Physician Assistant; PCP Family Medicine; Visit Provider Family Medicine
DX: R05.9 Cough, unspecified (principal); R09.81 Nasal congestion; R68.89 Other general symptoms and signs; Z20.822 Contact with and (suspected) exposure to COVID-19
CPT/HCPCS: 87804; C9803; U0003; U0005

== ENCOUNTER → 2021-09-11 02:43 | Outpatient (CLI) | payer MEDICARE, OTHER, SELFPAY ==
[2021-09-11 14:17] LABS: Influenza A QL RT-PCR Negative (Negative); Influenza B QL RT-PCR Negative (Negative)
[2021-09-11 20:41] LABS: SARS-CoV-2 RNA PCR Positive
== END ==
PROVIDERS: PCP Family Medicine; Visit Provider Physician Assistant
DX: U07.1 COVID-19 (principal); R68.89 Other general symptoms and signs
CPT/HCPCS: 87502; C9803; U0003; U0005

== ENCOUNTER 2022-01-05 08:27 | Outpatient (CLI) | payer MEDICARE, OTHER, SELFPAY ==
[2022-01-05 09:07] LABS: Basophils Absolute Auto 0.1 K/mm3 (0.0-0.1); Basophils Percent Auto 0.6 % (0.2-1.2); Eosinophils Absolute Auto 0.2 K/mm3 (0-0.3); Eosinophils Percent Auto 2.5 % (0-4.4); Hematocrit 45.5 % (42.0-52.0); Hemoglobin 15.7 g/dL (14.0-18.0); Immature Granulocyte Absolute 0.06 K/mm3 (0.00-0.031); Immature Granulocyte Percent A 0.7 % (0-0.5); Lymphocytes Absolute Auto 2.81 K/mm3 (0.9-3.2); Lymphocytes Percent Auto 33.8 % (18.3-44.2); Mean Corpuscular HGB Conc 34.5 g/dl (32-36); Mean Corpuscular Hemoglobin 33.1 pg (26-34); Mean Corpuscular Volume 95.8 fl (80-100); Monocytes Absolute Auto 0.8 K/mm3 (0.1-0.6); Monocytes Percent Auto 9.6 % (2.6-8.5); Neutrophils Absolute Auto 4.4 K/mm3 (1.3-6.7); Neutrophils Percent Auto 52.8 % (45.5-73.1); Platelet Count Result 227 k/mm3 (150-375); Red Blood Count 4.75 M/mm3 (4.6-6.20); Red Cell Distribution Width 12.8 % (11.5-14.5); White Blood Count 8.3 K/mm3 (4.5-10.0)
[2022-01-05 09:18] LABS: Alanine Aminotransferase 20 U/L (6-50); Albumin Level 4.2 g/dL (3.5-5.1); Alkaline Phosphatase 79 U/L (38-126); Anion Gap 5 mmol/L (8-16); Aspartate Amino Transferase 21 U/L (17-59); Bilirubin,Total 0.6 mg/dL (0.2-1.3); Blood Urea Nitrogen 19 mg/dL (9-20); Carbon Dioxide 30 mmol/L (22-30); Chloride 103 mmol/L (98-107); Cholesterol 195 mg/dL (0-200); Estimated Glomerular Filt Rate 53; Glucose 107 mg/dL (65-110); HDL Direct 25 mg/dL; Potassium 3.6 mmol/L (3.4-5.0); Sodium 138 mmol/L (137-145); Triglycerides 285 mg/dL (<150)
[2022-01-05 09:29] LABS: LDL Cholesterol Direct 93 mg/dL
[2022-01-05 09:39] LABS: Hemoglobin A1C 5.6 % (<5.7)
[2022-01-05 09:47] LABS: Prostate Specific Antigen 4.6 ng/mL (< OR = 4.0)
[2022-01-05 12:11] LABS: Appearance Urine Clear (Clear); Bilirubin Urine Negative (Negative); Blood Urine Negative (Negative); Color Urine Yellow (Yellow); Glucose Urine UA Negative (Negative); Ketones Urine Negative (Negative); Leukocyte Esterase Ur Negative LEU/UL (NEGATIVE); Nitrate Urine Negative (Negative); Protein Urine Negative (Negative); Urobilinogen Urine 0.2 mg/dL (<2.0)
[2022-01-05 12:21] LABS: Add Urine Microscopic? NO
== END 2022-01-05 08:28 | disposition home or self-care (01) ==
PROVIDERS: PCP Family Medicine; Visit Provider Nurse Practitioner Family
DX: G47.33 Obstructive sleep apnea (adult) (pediatric) (principal); E03.9 Hypothyroidism, unspecified; I10 Essential (primary) hypertension; J44.9 Chronic obstructive pulmonary disease, unspecified; N40.1 Benign prostatic hyperplasia with lower urinary tract symptoms; R73.01 Impaired fasting glucose; Z12.5 Encounter for screening for malignant neoplasm of prostate; E78.2 Mixed hyperlipidemia; N39.0 Urinary tract infection, site not specified
CPT/HCPCS: 36415; 80053; 80061; 81003; 83036; 84153; 84443; 85025; G0103

== ENCOUNTER 2022-01-28 15:58 | Outpatient (CLI) | payer MEDICARE, OTHER, SELFPAY ==
[2022-01-28 17:16] LABS: Prostate Specific Antigen 3.9 ng/mL (< OR = 4.0)
== END 2022-01-28 15:59 | disposition home or self-care (01) ==
LOC: ANHLAB 16:00
PROVIDERS: PCP Family Medicine; Visit Provider Urology
DX: R97.20 Elevated prostate specific antigen [PSA] (principal)
CPT/HCPCS: 36415; 84153

== ENCOUNTER 2022-03-04 14:39 | Outpatient (CLI) | payer MEDICARE, OTHER, SELFPAY ==
--- NOTE | ~2022-03-04 | XR_ITS ---
EXAM: XR lumbar spine 2-3V DATE: 03/04/2022 14:58 HISTORY: CHRONIC LBP, SCIATICA, NERVE STIMULATOR SURGERY . COMPARISON: MRI lumbar spine 10/17/2016. FINDINGS: 5 nonrib-bearing lumbar-type vertebral bodies. Pedicles intact. Mild lumbar scoliosis. Str aightening of the lordosis. Minimal anterolisthesis of L1 on L2. Multilevel disc height loss, vacuum phenomenon, and marginal osteophytosis. Large bridging osteophytosis anteriorly at L5-S1 multilevel s evere facet sclerosis. Left back stimulator with leads out of the kcady-yc-rore. Left iliac surgical clips. Incompletely visualized bilateral hip arthroplasties. IMPRESSION: Grade 1 anterolisthesis of L1 on L2. Multilevel severe degenerative disc disease. Multile milo severe facet arthropathy. Reviewed, dictated and finalized at location K. IMPRESSION: Grade 1 anterolisthesis of L1 on L2. Multilevel severe degenerative disc disease. Multilevel severe facet arthropathy.
== END 2022-03-04 14:40 | disposition home or self-care (01) ==
LOC: ANHIMG 14:43
PROVIDERS: PCP Family Medicine; Visit Provider Nurse Practitioner Family
DX: M54.16 Radiculopathy, lumbar region (principal); M54.50 Low back pain, unspecified; M51.36 Other intervertebral disc degeneration, lumbar region; M43.16 Spondylolisthesis, lumbar region; M12.88 Other specific arthropathies, not elsewhere classified, other specified site
CPT/HCPCS: 72100

== ENCOUNTER 2022-07-26 10:34 | Emergency (ER) | payer MEDICARE, OTHER, SELFPAY ==
[2022-07-26 11:23] VITALS: BP 151/58; PULSE 76; RESP 20; TEMP 37.1; O2SAT 95
--- NOTE | 2022-07-26 11:59 | ED.URI ---
HPI - URI/Sore Throat General Chief Complaint: Upper Respiratory Infection Stated Complaint: bilateral ear pain,sorethroat Time Seen by Provider: 07/26/22 11:52 Source: patient Mode of arrival: ambulatory Limitations: no limitations History of Present Illness HPI Narrative: Patient presents today with 5 day history of sinus pressure, sore throat, cough, right ear pain, intermittent shortness of breath. Denies fever. He has been taking airborne, vitamin-C without relief. Related Data Home Medications Medication Instructions Recorded Confirmed aspirin 81 mg tablet,delayed 81 mg PO DAILY 08/17/19 07/26/22 release ascorbic acid (vitamin C) 1,000 mg 1,000 mg PO DAILY 07/21/21 07/26/22 tablet furosemide 20 mg tablet (Lasix) 20 mg PO DAILY 07/21/21 07/26/22 multivitamin 1 tablet PO DAILY 07/21/21 07/26/22 tamsulosin 0.4 mg capsule (Flomax) 0.4 mg PO DAILY 07/21/21 07/26/22 Allergies Allergy/AdvReac Type Severity Reaction Status Date / Time morphine AdvReac Severe Confusion/Severe Verified 07/26/22 11:24 agitation Review of Systems Review of Systems: CONSTITUTIONAL: Denies body aches, fever, chills, or sweats. EYES: Denies visual changes, redness, or discharge. ENT: Denies rhinorrhea, congestion+ sinus pressure, right ear pain, sore throat CARDIOVASCULAR: Denies chest pain, palpitations, or edema. RESPIRATORY: Denies dyspnea.+ cough GASTROINTESTINAL: Denies abdominal pain, nausea, vomiting, or diarrhea. GENITOURINARY: Denies dysuria or hematuria. SKIN: Denies rash, itching, or wounds. MUSCULOSKELETAL: Denies back pain, joint pain, or myalgia. NEUROLOGIC: Denies headache, numbness, tingling, or weakness. PSYCH: Denies depression or anxiety. [facility] Past Medical History Medical History Acute pain of left knee Bilateral lower extremity edema COPD (chronic obstructive pulmonary disease) Edema of left lower extremity Hearing loss History of tobacco abuse IFG (impaired fasting glucose) MELANIE on CPAP Pain of right lower leg Right leg DVT Sacral nerve stimulator present Shortness of breath Vision abnormalities Weight gain Surgical History Surgical History H/O colectomy 26 H/O left nephrectomy History of appendectomy Hx of bilateral hip replacements Family History Family History Sibling Malignant neoplasm of prostate Family history of pancreatic cancer Family history of lung cancer Social History Social History Social History: , lives with his who has advanced Parkinson's disease, he is the caregiver; tobacco started age 10 and quit by 196 age 18, smoked 7 years most of it 3 ppd, 21 year history, since age 18; retired. Smoking packs per day: 3 Smoking cigarettes per day: 60.0 Years smoked: 7 Smoking pack-years: 21.00 Smoking status: Former smoker Tobacco type: cigarettes Second hand tobacco smoke exposure: No Smoking end date: 08/30/03 Alcohol intake: current Drinks per week: 6 Alcohol use details: 5-6 beers on Wednesdays and sometimes on Fridays with friends at [facility] [employer]; this is his social time Substance use: never Substance use type: does not use Additional living arrangements comments: LIVES WITH SPOUSE - SP[facility] CURRENT[facility] IN [facility] Gender identity (if verbalized by the patient): Male Spiritual care concerns: No Comments At time of signature, I have reviewed and agree with nursing past medical, surgical, social and family history unless otherwise noted. Please see nursing chart for further information. There is no relevant family history pertinent to the presenting complaint Exam Narrative: GENERAL: Well-appearing, well-nourished, and in no acute distress. HEAD: Normocephalic, atraumatic.
== END 2022-07-26 12:08 | disposition home or self-care (01) ==
PROVIDERS: Emergency Provider Nurse Practitioner; PCP Family Medicine
DX: J02.9 Acute pharyngitis, unspecified (principal); H66.91 Otitis media, unspecified, right ear; J06.9 Acute upper respiratory infection, unspecified; J44.1 Chronic obstructive pulmonary disease with (acute) exacerbation; Z87.891 Personal history of nicotine dependence; R73.01 Impaired fasting glucose; G47.33 Obstructive sleep apnea (adult) (pediatric); Z90.5 Acquired absence of kidney; Z96.643 Presence of artificial hip joint, bilateral; Z79.82 Long term (current) use of aspirin
CPT/HCPCS: 99213; G0463

== ENCOUNTER 2022-08-10 08:41 | Inpatient (IN) | payer MEDICARE, OTHER, SELFPAY ==
--- NOTE | ~2022-08-10 | XR_ITS ---
EXAMINATION: XR knee RT min 4V DATE: 08/10/2022 10:10 INDICATION: Right knee pain. Fall. TECHNIQUE: 4 views of right knee were obtained. COMPARISON: Right knee radiographs 11/02/2017 FINDINGS: Bone alignment is normal. No fracture. There is mild osteoarthritis of medial and lateral c ompartments. No knee joint effusion. IMPRESSION: 1. Mild right knee osteoarthritis. Reviewed, dictated and finalized at location A. UTER NUMERICAL CONTROL OPERATOR
--- NOTE | ~2022-08-10 | CT_ITS ---
CT of the Abdomen and Pelvis: Indication: Hematuria Technique: 2.5 mm axial scans were obtained through the abdomen and pelvis prior to and following in travenous administration of 130 cc of Omnipaque 350. Dose reduction technique was used on this scan b y utilizing automated exposure control and iterative reconstruction technique. The dose-length produc t (DLP) was 2827.39 mGy-cm. COMPARISON: 03/17/2020 Findings: Scans through the lung bases are unremarkable. The liver, spleen, pancreas, gallbladder, and adrenal glands are within normal limits. Stable right r enal cysts. Status post left nephrectomy. No evidence of aortic aneurysm. No lymphadenopathy. No bowel obstruction or bowel wall thickening. There is no evidence to suggest acute appendicitis. Images through the pelvis are degraded by streak artifact from bilateral hip arthroplasty. Gracia cath eter in place. Small right-sided urinary bladder diverticulum identified. Prostate gland probably mil dly enlarged. Impression: Small right-sided urinary bladder diverticulum. Status post left nephrectomy. Reviewed, dictated and finalized at location . DRILLER HELPER Impression: Small right-sided urinary bladder diverticulum. Status post left nephrectomy.
--- NOTE | ~2022-08-10 | CT_ITS ---
EXAMINATION: CT lumbar spine wo con DATE: 08/10/2022 09:58 INDICATION: Back pain post fall. TECHNIQUE: Computed tomography (CT) of the lumbar spine was performed without intravenous contrast. A utomated exposure control and iterative reconstruction technique were employed. The dose-length produ ct was 1225.89 mGy-cm. COMPARISON: Lumbar spine radiographs dated 03/04/2022 and MRI dated 10/17/2016 FINDINGS: Mild upper lumbar dextrocurvature and lower lumbar levocurvature. 2 mm anterolisthesis L1 on L2. Vert ebral body heights are normal. Schmorl's nodes along multiple levels most prominent on both sides of the L1-L2 disc space and the inferior endplates of L3 and L4. No fracture. Severe disc height loss at L3-L4, L4-L5 and L5-S1. Moderate disc height loss at L1-L2 and L2-L3. Vacuum phenomena at each of th montez levels. Mild disc height loss at T12-L1. Spinal stimulator lead projects posterior to the left si de of the mid lumbar spine with leads extending into the central canal between the left-sided lamina at T12 and L1 and extending cephalad into the resting spine and beyond the cephalad margin of the fie ld-of-view. Paravertebral soft tissues are unremarkable. The following disc levels are specifically d iscussed: T12-L1: The disc does not extend beyond the endplate margin. There is moderate bilateral facet joint osteoarthritis. There is no neural foraminal stenosis. There is no central canal stenosis. L1-L2: Disc is bulging. There is severe bilateral facet joint osteoarthritis. There is mild right and moderate to severe left neural foraminal stenosis. There is moderate central canal stenosis. L2-L3: Disc is bulging. There is moderate left and mild right facet joint osteoarthritis. There is mo derate left and mild right neural foraminal stenosis. There is mild central canal stenosis. L3-L4: Disc is bulging. There is mild right and moderate left facet joint osteoarthritis. There is mo derate bilateral neural foraminal stenosis. There is mild central canal stenosis. L4-L5: Disc is bulging. There is severe right and moderate left facet joint osteoarthritis. There is moderate left and [id number]-gu-hffiaa right neural foraminal stenosis. There is mild central canal florentino nosis. L5-S1: Posterior disc osteophyte complex. There is severe bilateral facet joint osteoarthritis. There is moderate bilateral neural foraminal stenosis. There is mild central canal stenosis. IMPRESSION: 1. No significant interval change in severe lumbar spondylosis. No acute osseous abnormality. Reviewed, dictated and finalized at location A. SION TOLL WIRE CHIEF IMPRESSION: 1. No significant interval change in severe lumbar spondylosis. No acute osseou s abnormality.
--- NOTE | ~2022-08-10 | CT_ITS ---
EXAMINATION: CT brain wo con INDICATION: Altered mental status COMPARISON: 08/10/2022 TECHNIQUE: Standard unenhanced head CT. The dose-length product (DLP) was 681.00 mGy-cm. The mA was a djusted according to patient size. Iterative reconstruction technique was employed. FINDINGS: There is no acute intraparenchymal hemorrhage. No evidence of mass lesion. No evidence of a cute infarction. An old lacunar infarct is noted in the right basal ganglia. There is mild periventri cular and subcortical hypodensity probably related to small vessel ischemic disease. There is mild pr ominence of the sulci and ventricles related to cerebral atrophy. Intracranial calcified cerebral ath erosclerosis is noted. There are no extra-axial collections. There is no mass effect or midline shift . Changes in the globes are likely from ocular lens surgery. The visualized sinuses and mastoid air c ells are well aerated. IMPRESSION: 1. No acute intracranial abnormality. 2. Age related findings. Reviewed, dictated and finalized at location A. Y SHOP SUPERVISOR
--- NOTE | ~2022-08-10 | CT_ITS ---
Non-contrast CT scan of the Pelvis Clinical indication: Assess clot burden urinary bladder Technique: 5 mm axial scans were obtained through the pelvis without intravenous or oral contrast. D ose reduction technique was used on this scan by utilizing automated exposure control and iterative r econstruction technique. The dose-length product (DLP) was 1000.63 mGy-cm. Findings: There is streak artifact from bilateral hip arthroplasties. Gracia catheter is in place. Uri nary bladder is decompressed, somewhat limiting evaluation, but no large blood clot clearly identifie d within the lumen. Prostate gland probably enlarged. Visualized bowel loops are unremarkable. No ascites. No lymphadenopathy identified. Impression: Collapsed urinary bladder somewhat limits evaluation, but no large intraluminal blood clot identified . Probable enlarged prostate gland. Streak artifact from bilateral hip arthroplasties. Reviewed, dictated and finalized at [facility]. OYER RELATIONS REPRESENTATIVE Impression: Collapsed urinary bladder somewhat limits evaluation, but no large intraluminal blood clot identified. Probable enlarged prostate gland. Streak artifact from bilateral hip arthroplasties.
--- NOTE | ~2022-08-10 | XR_ITS ---
EXAMINATION: XR chest 2V DATE: 08/10/2022 10:10 INDICATION: Generalized weakness. TECHNIQUE: Frontal and lateral views of the chest were obtained on 3 radiographs. COMPARISON: Chest 2 views 05/30/2018 FINDINGS: The chest demonstrates clear lungs without pneumonia, pleural effusion, or pneumothorax. Th e heart size is normal. Epidural electrodes are noted. There is mild chronic anterior wedging of mult iple midthoracic vertebral bodies. IMPRESSION: 1. No acute cardiopulmonary disease. Reviewed, dictated and finalized at location A. Y PILOT
--- NOTE | ~2022-08-10 | US_ITS ---
EXAMINATION: US venous doppler [facility] DATE: 08/10/2022 12:45 INDICATION: Lower limb pain TECHNIQUE: Pelletier scale images without and with compression and Doppler images of the bilateral lower e xtremity veins were obtained. COMPARISON: 06/04/2020 FINDINGS: The right common femoral vein, profunda femoral vein, femoral vein, popliteal vein, peroneal trunk, p osterior tibial veins, and greater saphenous vein are patent. The left common femoral vein, profunda femoral vein, femoral vein, popliteal vein, peroneal trunk, po sterior tibial veins, and greater saphenous vein are patent. IMPRESSION: 1. Patent bilateral lower extremity veins. No evidence of deep venous thrombosis. Reviewed, dictated and finalized at location A. INAL RECORDS TECHNICIAN IMPRESSION: 1. Patent bilateral lower extremity veins. No evidence of deep venous thrombosi s.
--- NOTE | ~2022-08-10 | XR_ITS ---
EXAMINATION: XR hip LT 2V w AP pelvis DATE: 08/10/2022 10:10 INDICATION: Left hip pain. TECHNIQUE: An anteroposterior view of the pelvis and 2 views of left hip were obtained. COMPARISON: None. FINDINGS: There are bilateral total hip arthroplasties in near-anatomic alignment. No periprosthetic lucency to suggest loosening or infection. No fracture. There is lumbar dextrocurvature and severe sp ondylosis. Surgical clips overlie the left pelvis. IMPRESSION: 1. Bilateral total hip arthroplasties in near-anatomic alignment. Reviewed, dictated and finalized at location A. ER PREPARER
--- NOTE | ~2022-08-10 | US_ITS ---
EXAMINATION: US renal BI DATE: 08/10/2022 23:53 INDICATION: Acute kidney injury. TECHNIQUE: Multiple ultrasound grayscale images of the kidneys were obtained. COMPARISON: CT lumbar spine 08/10/2022, CT abdomen and pelvis 03/17/2020 FINDINGS: The right kidney measures measures 14.9 x 6.8 x 7.4 cm. The right kidney parenchyma demonstrates norm al echogenicity. There are cysts in right kidney measuring up to 3.8 cm . There are changes of left n ephrectomy. The bladder is normal. IMPRESSION: 1. Normal right kidney size. No hydronephrosis. 2. Left nephrectomy. Reviewed, dictated and finalized at location A. AIMED PROPERTY OFFICER
--- NOTE | ~2022-08-10 | CT_ITS ---
EXAMINATION: CT brain wo con DATE: 08/10/2022 09:58 INDICATION: Fall. Legs stopped working. TECHNIQUE: Computed tomography (CT) of the head was performed without intravenous contrast. The mA wa s adjusted according to patient size. Iterative reconstruction technique was employed. The dose-lengt h product was 681.00 mGy-cm. COMPARISON: Head CT 05/30/2020 FINDINGS: There are scattered areas of low attenuation in the cerebral white matter. There is an old lacunar infarct in the right basal ganglia. There is no intracranial hemorrhage, acute infarction, or abnormal intracranial mass lesion. The ventricles are normal in size. There are likely changes of oc ular lens replacement surgeries. There is mild mucosal thickening in the paranasal sinuses. There are trace bilateral mastoid effusions. IMPRESSION: 1. Old lacunar infarct in the right basal ganglia. 2. Stable moderate nonspecific cerebral white matter disease, which likely represents chronic small v essel ischemic disease. Reviewed, dictated and finalized at location A. ERCIAL CREDIT PORTFOLIO MANAGER IMPRESSION: 1. Old lacunar infarct in the right basal ganglia. 2. Stable moderate nonspecific cerebral white matter disease, which likely repr esents chronic small vessel ischemic disease.
--- NOTE | ~2022-08-10 | US_ITS ---
EXAMINATION: US renal BI DATE: 08/15/2022 09:24 INDICATION: Hematuria TECHNIQUE: Multiple ultrasound grayscale images of the kidneys were obtained. COMPARISON: None. FINDINGS: The right kidney measures 14.4 x 8.6 x 8.3 cm. With normal echogenicity 4.1 cm anechoic exophytic cys t at the lower pole of the right kidney. No shadowing renal stones or hydronephrosis in the right kid pino. The left kidney is not visualized and has reportedly been resected. The bladder is decompressed around a Gracia catheter which limits evaluation. IMPRESSION: 1. 4.1 cm right renal cyst. Otherwise normal right kidney without hydronephrosis. 2. Status post left nephrectomy. Reviewed, dictated and finalized at location A. CH STORE MANAGER IMPRESSION: 1. 4.1 cm right renal cyst. Otherwise normal right kidney without hydronephros is. 2. Status post left nephrectomy.
[2022-08-10 08:41] VITALS: BP 184/90; PULSE 67; RESP 18; TEMP 36.4; O2SAT 98
--- NOTE | 2022-08-10 09:33 | ECG_ITS ---
Measurements Intervals [place] Rate: 60 P: -76 AK: 315 QRS: -2 QRSD: 141 T: -60 QT: 369 QTc: 371 Interpretive Statements ELECTRICAL ARTIFACT REDUCES ECG QUALITY SINUS RHYTHM WITH FIRST-DEGREE AV BLOCK RIGHT BUNDLE BRANCH BLOCK [120+ ms QRS DURATION, UPRIGHT V1, 40+ ms S IN I/aVL/V4/V5/V6] NO PREVIOUS ECG AVAILABLE FOR COMPARISON Electronically Signed On 08-10-2022 15:10:15 TEST PREPARATION TUTOR by Lamonte Dinero M.D.
--- NOTE | 2022-08-10 09:36 | ED.FALL ---
HPI - Fall General Chief Complaint: Fall <Ana Ornelas PA-C - Last Filed: 08/10/22 17:13> Stated Complaint: GLF <Ana Ornelas PA-C - Last Filed: 08/10/22 17:13> Time Seen by Provider: 08/10/22 09:14 <Ana Ornelas PA-C - Last Filed: 08/10/22 17:13> Source: patient and family <Ana Ornelas PA-C - Last Filed: 08/10/22 17:13> Mode of arrival: EMS <Ana Ornelas PA-C - Last Filed: 08/10/22 17:13> Limitations: no limitations <Ana Ornelas PA-C - Last Filed: 08/10/22 17:13> History of Present Illness HPI Narrative: This is a 77-year-old male that presents to the emergency department for generalized weakness. Reports today he was in the shower and his legs gave out on him and he fell. He denies any prodromal symptoms. He does not believe that he hit his head. He did not lose consciousness. His main complaint is lower back pain. His daughter reports that he has recently recovered from influenza. He has been weak and has had a couple of falls at home recently. He recently finished antibiotics for otitis media. He has no other localizing complaints. Denies fever, cough, chest pain, shortness of breath, abdominal pain, vomiting, or dysuria. <Ana Ornelas PA-C - Last Filed: 08/10/22 17:13> Related Data Home Medications: Home Medications Medication Instructions Recorded Confirmed aspirin 81 mg tablet,delayed 81 mg PO DAILY 08/17/19 08/10/22 release ascorbic acid (vitamin C) 1,000 mg 1,000 mg PO DAILY 07/21/21 08/10/22 tablet furosemide 20 mg tablet (Lasix) 20 mg PO DAILY 07/21/21 08/10/22 multivitamin 1 tablet PO DAILY 07/21/21 08/10/22 tamsulosin 0.4 mg capsule (Flomax) 0.4 mg PO DAILY 07/21/21 08/10/22 fenofibrate 54 mg tablet 54 mg PO DAILY 12/12/22 12/12/22 gabapentin 100 mg capsule 100 mg PO HS 08/10/22 08/10/22 <Ana Ornelas PA-C - Last Filed: 08/10/22 17:13> Allergies/Adverse Reactions: Allergies Allergy/AdvReac Type Severity Reaction Status Date / Time morphine AdvReac Severe Confusion/Severe Verified 08/10/22 16:49 agitation <Ana Ornelas PA-C - Last Filed: 08/10/22 17:13> Review of Systems Review of Systems: CONSTITUTIONAL: Denies fever EYES: Denies visual changes ENT: Denies rhinorrhea, congestion, sore throat CARDIOVASCULAR: Denies chest pain, palpitations, or edema. RESPIRATORY: Denies cough or dyspnea. GASTROINTESTINAL: Denies abdominal pain, nausea, vomiting, or diarrhea. GENITOURINARY: Denies dysuria SKIN: Denies rash MUSCULOSKELETAL: Reports back pain, joint pain, and myalgia. NEUROLOGIC: Reports generalized weakness. Denies numbness <Ana Ornelas PA-C - Last Filed: 08/10/22 17:13> All systems reviewed & are unremarkable except as noted in HPI and below <Ana Ornelas PA-C - Last Filed: 08/10/22 17:13> [facility] Past Medical History Medical History: Medical History Acute pain of left knee Bilateral lower extremity edema COPD (chronic obstructive pulmonary disease) Edema of left lower extremity Hearing loss History of tobacco abuse IFG (impaired fasting glucose) MELANIE on CPAP Pain of right lower leg Right leg DVT Sacral nerve stimulator present Shortness of breath Vision abnormalities Weight gain <Ana Ornelas PA-C - Last Filed: 08/10/22 17:13> Surgical History Surgical History: Surgical History H/O colectomy 28 H/O left nephrectomy History of appendectomy Hx of bilateral hip replacements <FABIO Nixon Last Filed: 08/10/22 17:13> Family History Family History: Family History Sibling Malignant neoplasm of prostate Family history of pancreatic cancer Family history of lung cancer <Ana Ornelas PA-C - Last Filed: 08/10/22 17:13> Social History Social History:
[2022-08-10 10:30] LABS: Basophils Absolute Auto 0.1 K/mm3 (0.0-0.1); Basophils Percent Auto 0.7 % (0.2-1.2); Eosinophils Absolute Auto 0.1 K/mm3 (0-0.3); Eosinophils Percent Auto 1.3 % (0-4.4); Hematocrit 43.7 % (42.0-52.0); Hemoglobin 15.1 g/dL (14.0-18.0); Immature Granulocyte Absolute 0.04 K/mm3 (0.00-0.031); Immature Granulocyte Percent A 0.4 % (0-0.5); Lymphocytes Absolute Auto 1.85 K/mm3 (0.9-3.2); Mean Corpuscular HGB Conc 34.6 g/dl (32-36); Mean Corpuscular Hemoglobin 33.3 pg (26-34); Mean Corpuscular Volume 96.3 fl (80-100); Mean Platelet Volume 9.5 fl (7.4-10.4); Monocytes Absolute Auto 0.9 K/mm3 (0.1-0.6); Monocytes Percent Auto 9.2 % (2.6-8.5); Neutrophils Absolute Auto 6.8 K/mm3 (1.3-6.7); Neutrophils Percent Auto 69.4 % (45.5-73.1); Platelet Count Result 281 k/mm3 (150-375); Red Blood Count 4.54 M/mm3 (4.6-6.20); Red Cell Distribution Width 13.4 % (11.5-14.5); White Blood Count 9.8 K/mm3 (4.5-10.0)
[2022-08-10 10:37] LABS: Alanine Aminotransferase 26 U/L (6-50); Alkaline Phosphatase 58 U/L (38-126); Anion Gap 5 mmol/L (8-16); Aspartate Amino Transferase 27 U/L (17-59); Bilirubin,Total 0.9 mg/dL (0.2-1.3); Blood Urea Nitrogen 12 mg/dL (9-20); Calcium 11.2 mg/dL (8.4-10.2); Carbon Dioxide 34 mmol/L (22-30); Chloride 102 mmol/L (98-107); Estimated CRCL calculation 48 ml/min; Estimated Glomerular Filt Rate 42; Glucose 100 mg/dL (65-110); Potassium 2.7 mmol/L (3.4-5.0); Sodium 141 mmol/L (137-145)
[2022-08-10 10:41] LABS: INR 1.1; Prothrombin Time 13.6 Seconds (11.1-14.7)
[2022-08-10 10:42] LABS: Partial Thromboplastin Time 25.1 SECONDS (22.3-36.8)
[2022-08-10 10:48] LABS: D Dimer 0.82 ug/mL (<0.48)
[2022-08-10 11:12] LABS: Magnesium 1.6 mg/dL (1.6-2.3)
[2022-08-10 11:56] VITALS: BP 198/83; PULSE 61; RESP 18; O2SAT 98
[2022-08-10] MEDS: SODIUM CHLORIDE 0.9% IV 500 ML 999 ML IV CONT (12:08)
[2022-08-10] MEDS: POTASSIUM CHLORIDE INJ 40 MEQ in SODIUM CHLORIDE 0.9% IV 500 ML 130 MEQ IVPB ×2 (12:09→22:43)
[2022-08-10 12:12] LABS: Appearance Urine Clear (Clear); Bilirubin Urine Negative (Negative); Blood Urine Negative (Negative); Glucose Urine UA Negative (Negative); Ketones Urine Negative (Negative); Leukocyte Esterase Ur Negative LEU/UL (Negative); Nitrate Urine Negative (Negative); Protein Urine Negative (Negative); Urobilinogen Urine 0.2 mg/dL (<2.0)
[2022-08-10 12:18] LABS: Add Urine Microscopic? NO; Color Urine Light Yellow (Yellow)
[2022-08-10 13:40] LABS: Influenza A QL RT-PCR Negative (Negative); Influenza B QL RT-PCR Negative (Negative); SARS-CoV-2 RNA PCR Negative
[2022-08-10] MEDS: hydrALAZINE HCL 20 MG/ML VIAL 10 MG IV PUSH (13:55)
--- NOTE | 2022-08-10 15:00 | PM.IMHP ---
H&P: HPI History of Present Illness Date/Time: 08/10/22 15:00 Chief Complaint: Ground level fall. Narrative: This is a very pleasant a 77-year-old male with COPD, sleep apnea, and BPH presented to the emergency department from home for evaluation after a ground level fall. He had influenza A and bilateral otitis media a couple of weeks ago and his symptoms have essentially resolved however he continues to be fatigued, sleeping a large part of the day. He also seems more weak than usual and he has had 2 falls in the last several days. On Wednesday he was sitting down folding clothes and bent over to pick something up at which time he lost his balance and fell forward. Today while getting out of the shower he was feeling extremely weak in his legs and he fell down onto his buttocks. Daughter heard him knocking on the door to get her attention and she felt he was a bit disoriented and brought him in for evaluation. He denies head trauma and loss of consciousness in the fall and reports sustaining no injuries. He had no prodrome prior to the fall. He also denies headache, neck ache, sinus congestion, sore throat, cough, ear pain, chest pain, pleuritic pain, palpitations, shortness of breath, vomiting, diarrhea, and urinary symptoms Review of Systems Review of Systems: Twelve systems were reviewed and are negative except for as per HPI. [facility] Past Medical History Medical History (Updated 08/10/22 @ 21:29 by Susy Driscoll PA-C) COPD (chronic obstructive pulmonary disease) Edema of left lower extremity Hearing loss History of tobacco abuse IFG (impaired fasting glucose) MELANIE on CPAP Right leg DVT Sacral nerve stimulator present Surgical History Surgical History H/O colectomy 28 H/O left nephrectomy History of appendectomy Hx of bilateral hip replacements Family History Family History Sibling Malignant neoplasm of prostate Family history of pancreatic cancer Family history of lung cancer Social History Social History (Updated 08/10/22 @ 21:26 by Susy Driscoll PA-C) Social History: Surrogate medical decision maker: Roxana [place], daughter. Code status: Full code. Smoking packs per day: 1 Smoking cigarettes per day: 20.0 Years smoked: 30 Smoking pack-years: 30.00 Smoking status: Former smoker Tobacco type: cigarettes Second hand tobacco smoke exposure: No Smoking end date: 08/30/03 Alcohol intake: current Drinks per week: 3 Alcohol use details: 5-6 beers on Wednesdays and sometimes on Fridays with friends at [facility] [employer]. Substance use: never Substance use type: does not use Lack of Transportation: No Lack of Food: Never True Current Housing: I Have Housing Concerned About Future Housing: No Difficulty Paying Gas/Electric Bills: No Difficulty Paying for Meds: No Currently Unemployed: No Education: Master's Degree or Higher Difficulty w/ Childcare or Family Care: No Additional living arrangements comments: Lives with daughter and son-in-law. 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 Spiritual care concerns: No Meds Home Medications and Allergies Home Medications Medication Instructions Recorded Confirmed Type aspirin 81 mg tablet,delayed 81 mg PO DAILY 08/17/19 08/10/22 History release ascorbic acid (vitamin C) 1,000 mg 1,000 mg PO DAILY 07/21/21 08/10/22 History tablet furosemide 20 mg tablet (Lasix) 20 mg PO DAILY 07/21/21 08/10/22 History multivitamin 1 tablet PO DAILY 07/21/21 08/10/22 History tamsulosin 0.4 mg capsule (Flomax) 0.4 mg PO DAILY 07/21/21 08/10/22 History albuterol sulfate 90 mcg/actuation 1 - 2 puff inhalation Q4-6H PRN 05/26/22 08/10/22 Rx aerosol inhaler shortness of breath or wheezing #8.5 grams codeine 10 mg-guaifenesin 100 mg
[2022-08-10 15:15] VITALS: BP 182/80; PULSE 64; RESP 18; O2SAT 99
--- NOTE | 2022-08-10 16:47 | PC.NURSE ---
This patient, Jason Daigle, was admitted to Virtual Bed 3rd Floor-1. Patient/family oriented to hospital policies and general routines including ID bracelet, bed and alarms, visiting hours, pain management, procedures, bathroom and other care routines, personal items, smoking policy, room service/diet, and visiting hours. Information on how to activate the Rapid Response Team has been discussed. Patient/Family are encouraged to report perceived risks to care and to ask questions if they do not understand what they are told or what they should do.
[2022-08-10 16:53] VITALS: BP 178/92; PULSE 73; RESP 18; O2SAT 99
[2022-08-10 17:14] VITALS: BMI 40.0
--- NOTE | 2022-08-10 17:25 | PC.NURSE ---
heart healthy dinner tray ordered
[2022-08-10 18:08] LABS: Anion Gap 4 mmol/L (8-16); Blood Urea Nitrogen 13 mg/dL (9-20); Calcium 10.8 mg/dL (8.4-10.2); Carbon Dioxide 34 mmol/L (22-30); Chloride 101 mmol/L (98-107); Estimated CRCL calculation 48 ml/min; Estimated Glomerular Filt Rate 42; Glucose 91 mg/dL (65-110); Potassium 2.8 mmol/L (3.4-5.0); Sodium 139 mmol/L (137-145)
--- NOTE | 2022-08-10 18:57 | PC.NURSE ---
This patient, Jason Daigle, was admitted to [facility] Surg Room 325-02. Patient/family oriented to hospital policies and general routines including ID bracelet, bed and alarms, visiting hours, pain management, procedures, bathroom and other care routines, personal items, smoking policy, room service/diet, and visiting hours. Information on how to activate the Rapid Response Team has been discussed. Patient/Family are encouraged to report perceived risks to care and to ask questions if they do not understand what they are told or what they should do.
[2022-08-10 20:00] VITALS: PULSE 66; PULSE 71; RESP 16; O2SAT 98
[2022-08-10 21:59] VITALS: BP 187/87; PULSE 71; RESP 16; TEMP 36.6; O2SAT 98
[2022-08-10] MEDS: POTASSIUM CHLORIDE 20 MEQ TABLET PO (22:40)
[2022-08-10] MEDS: SODIUM CHLORIDE 0.9% IV 1,000 ML 125 ML IV CONT (22:43)
[2022-08-11] VITALS (10 sets, daily range): BP systolic 170–186; BP diastolic 79–98; PULSE 62–93; RESP 16–20; TEMP 36.3–36.6; O2SAT 37–98
[2022-08-11 02:21] LABS: Folic Acid > 20.0 ng/mL (2.76->20)
[2022-08-11 06:41] LABS: Hematocrit 41.8 % (42.0-52.0); Mean Corpuscular HGB Conc 33.5 g/dl (32-36); Mean Corpuscular Hemoglobin 32.1 pg (26-34); Mean Corpuscular Volume 95.9 fl (80-100); Mean Platelet Volume 9.5 fl (7.4-10.4); Platelet Count Result 267 k/mm3 (150-375); Red Blood Count 4.36 M/mm3 (4.6-6.20); Red Cell Distribution Width 13.3 % (11.5-14.5); White Blood Count 9.1 K/mm3 (4.5-10.0)
[2022-08-11 07:00] LABS: Anion Gap 4 mmol/L (8-16); Blood Urea Nitrogen 11 mg/dL (9-20); Calcium 9.8 mg/dL (8.4-10.2); Carbon Dioxide 32 mmol/L (22-30); Chloride 106 mmol/L (98-107); Estimated CRCL calculation 51 ml/min; Estimated Glomerular Filt Rate 45; Glucose 97 mg/dL (65-110); Magnesium 1.6 mg/dL (1.6-2.3); Potassium 2.7 mmol/L (3.4-5.0); Sodium 142 mmol/L (137-145)
[2022-08-11] MEDS: ASCORBIC ACID 500 MG TABLET 1000 MG PO (08:36)
[2022-08-11] MEDS: TAMSULOSIN HCL 0.4 MG CAPSULE PO (08:37)
[2022-08-11] MEDS: ENOXAPARIN 40 MG/0.4 ML SYRINGE SUB-Q (08:37)
[2022-08-11] MEDS: ASPIRIN 81 MG ENTERIC TABLET PO (08:37)
[2022-08-11] MEDS: MAGNESIUM SULF 2 GM/WATER 50ML 2 GM/50 ML BAG IVPB (08:37)
[2022-08-11] MEDS: MULTIVITAMINS THERAPEUTIC TAB (*BKC) 1 TABLET PO (08:37)
--- NOTE | 2022-08-11 09:04 | PC.NURSE ---
called pharmacy for 0815 dose of oral potassium as I cannot pull from pyxis, will give when received
[2022-08-11] MEDS: POTASSIUM CHLORIDE 20 MEQ TABLET.ER 40 MEQ PO ×2 (11:12→13:18)
--- NOTE | 2022-08-11 13:04 | PM.IMPN ---
Progress Note: A&P Assessment and Plan (1) Fall from ground level: Code(s): W18.30XA - Fall on same level, unspecified, initial encounter Status: Acute Assessment and Plan: Patient presents to the ED after sustaining a fall. He does have bilateral lower extremity weakness. CT of the brain shows old lacunar infarct in the right basal ganglial but no acute findings. Lumbar spine CT shows no interval change in severe lumbar spondylosis. Pelvic, hip and knee x-rays show no acute fracture. Start PT and OT. Spent more time out of bed. Check creatinine kinase. (2) Generalized weakness: Code(s): R53.1 - Weakness Status: Acute Assessment and Plan: Generalized weakness could be related to acute kidney injury. Consider also related to residual condition after his influenza infection. TSH is normal. Consider poorly treated sleep apnea. Consider dehydration. Continue therapy. (3) Elevated blood pressure reading: Code(s): R03.0 - Elevated blood-pressure reading, without diagnosis of hypertension Status: Acute Assessment and Plan: Patient has had elevated blood pressure at times over the past few years. He is currently not on antihypertensive medications. Will add Norvasc and continue to adjust medications as needed. (4) Acute kidney injury: Code(s): N17.9 - Acute kidney failure, unspecified Status: Acute Assessment and Plan: Creatinine was normal earlier this year with a baseline creatinine 1.1-1.3. Creatinine on admission here was 1.6 felt related to dehydration. Dehydration from poor oral intake from his recent infection plus his continued use of furosemide. Renal US showing left nephrectomy (removed due to cancer). Creatinine slightly better. Continue IV fluids. (5) Hypokalemia: Code(s): E87.6 - Hypokalemia Status: Acute Assessment and Plan: Potassium is low again probably related to the chronic depletion from Lasix as well as dilution from the IV fluids. Continue to of place. Magnesium 1.6 and this will be replaced today as well. Follow-up on repeat levels and continue to replace until resolved. (6) Hypercalcemia: Code(s): E83.52 - Hypercalcemia Status: Acute Assessment and Plan: Calcium was mildly elevated prior related dehydration. With IV fluids,calcium has normalized. (7) Dehydration: Code(s): E86.0 - Dehydration Status: Acute Assessment and Plan: as above. Continue IV fluids. (8) Obstructive sleep apnea on CPAP: Code(s): G47.33 - Obstructive sleep apnea (adult) (pediatric); Z99.89 - Dependence on other enabling machines and devices Status: Acute Assessment and Plan: Will continue auto BiPAP Here. Plan Positive D-dimer - lower extremity venous Doppler negative for DVT. Consider CTA of the chest if he develops symptoms concerning for PE. Hematuria - Gracia catheter secured draining pink-tinged urine probably related to the fact that he has BPH and may have been traumatic. Remove Gracia catheter once he is out of bed. Continue Flomax for his BPH. Subjective Date/time seen: 08/11/22 13:04 Interval history: 77yo male with COPD, sleep apnea, and BPH here for evaluation after a ground level fall.? patient noted hematuria yesterday prior to admission. He feels short of breath and has a cough. No chest pain. He had a recent UTI. He is alert but mildly confused so history is suspect. Exam Narrative: AF 97.4186/98 70 16 97% ra Gen - NARD Chest - CTA bilaterally, nml RR CV - RRR S1/S2. Telemetry showing PVCs and mostly artifact. Abd - Soft. Obese. Positive bowel sounds. - Gracia catheter secured draining pink colored urine. Ext - Trace pedal edema Neuro - alert. Mildly confused. Dorsal and plantar flexion strength is normal. Hip flexors are 3+/5 strength. library media specialist normal Psych - Nml mood and affect
[2022-08-11 15:34] LABS: Magnesium 1.9 mg/dL (1.6-2.3); Potassium 2.7 mmol/L (3.4-5.0)
[2022-08-11 15:43] LABS: Creatine Kinase 109 U/L (55-170)
[2022-08-11] MEDS: POTASSIUM CHLORIDE INJ 40 MEQ in SODIUM CHLORIDE 0.9% IV 500 ML 130 MEQ IVPB (16:49)
[2022-08-11] MEDS: amLODIPine BESYLATE 5 MG TABLET PO (16:49)
[2022-08-11] MEDS: GABAPENTIN 100 MG CAPSULE PO (20:20)
[2022-08-12] VITALS (14 sets, daily range): BP systolic 130–201; BP diastolic 81–112; PULSE 53–83; RESP 18–20; TEMP 36.2–36.4; O2SAT 98–99
[2022-08-12] MEDS: SODIUM CHLORIDE 0.9% IV 1,000 ML 70 ML IV CONT (00:28)
[2022-08-12 07:03] LABS: Albumin Level 3.7 g/dL (3.5-5.1); Anion Gap 5 mmol/L (8-16); Blood Urea Nitrogen 10 mg/dL (9-20); Calcium 8.9 mg/dL (8.4-10.2); Carbon Dioxide 29 mmol/L (22-30); Chloride 104 mmol/L (98-107); Estimated CRCL calculation 58 ml/min; Estimated Glomerular Filt Rate 53; Glucose 86 mg/dL (65-110); Magnesium 1.8 mg/dL (1.6-2.3); Phosphorus 2.7 mg/dL (2.5-4.5); Potassium 2.8 mmol/L (3.4-5.0); Sodium 138 mmol/L (137-145)
[2022-08-12] MEDS: POTASSIUM CHLORIDE INJ 40 MEQ in SODIUM CHLORIDE 0.9% IV 500 ML 130 MEQ IVPB ×2 (08:38→18:08)
[2022-08-12] MEDS: MAGNESIUM SULF 2 GM/WATER 50ML 2 GM/50 ML BAG IVPB (08:39)
[2022-08-12] MEDS: ASPIRIN 81 MG ENTERIC TABLET PO (08:46)
[2022-08-12] MEDS: ASCORBIC ACID 500 MG TABLET 1000 MG PO (08:46)
[2022-08-12] MEDS: amLODIPine BESYLATE 5 MG TABLET PO (08:46)
[2022-08-12] MEDS: ENOXAPARIN 40 MG/0.4 ML SYRINGE SUB-Q (08:47)
[2022-08-12] MEDS: MULTIVITAMINS THERAPEUTIC TAB (*BKC) 1 TABLET PO (08:47)
[2022-08-12] MEDS: TAMSULOSIN HCL 0.4 MG CAPSULE PO (08:47)
--- NOTE | 2022-08-12 16:55 | PM.IMPN ---
Progress Note: A&P Assessment and Plan (1) Fall from ground level: Code(s): W18.30XA - Fall on same level, unspecified, initial encounter Status: Acute Assessment and Plan: Patient presents to the ED after sustaining multiple falls. He does have bilateral lower extremity weakness. CT of the brain shows old lacunar infarct in the right basal ganglial but no acute findings. Lumbar spine CT shows no interval change in severe lumbar spondylosis. Pelvic, hip and knee x-rays show no acute fracture. TCK 109. Continue PT and OT. Spend more time out of bed. (2) Generalized weakness: Code(s): R53.1 - Weakness Status: Acute Assessment and Plan: Generalized weakness could be related to SAHARA. Consider also related to residual condition after his influenza infection and underlying hx of CVA. TSH, B12 and folate are normal. Consider poorly treated sleep apnea. Consider dehydration. Continue therapy. (3) Elevated blood pressure reading: Code(s): R03.0 - Elevated blood-pressure reading, without diagnosis of hypertension Status: Acute Assessment and Plan: Patient has had elevated blood pressure at times over the past few years. He is currently not on antihypertensive medications. Norvasc added. BP better this afternoon. Continue to adjust medications as needed. (4) Acute kidney injury: Code(s): N17.9 - Acute kidney failure, unspecified Status: Acute Assessment and Plan: Patient with a baseline creatinine 1.1-1.3. Creatinine on admission here was 1.6 felt related to dehydration. Dehydration from poor oral intake from his recent infection plus his continued use of furosemide. Renal US showing left nephrectomy (removed due to cancer). Creatinine better and back to baseline. Stop IV fluids. (5) Hypokalemia: Code(s): E87.6 - Hypokalemia Status: Acute Assessment and Plan: Potassium is low again probably related to the chronic depletion from Lasix as well as dilution from the IV fluids. Continue to replace. Magnesium 1.5 and this will be replaced today as well. Follow-up on repeat levels show potassium still low. Continue to replace until resolved. (6) Hypercalcemia: Code(s): E83.52 - Hypercalcemia Status: Acute Assessment and Plan: Calcium was mildly elevated prior related dehydration. With IV fluids,calcium has normalized. Resolved (7) Dehydration: Code(s): E86.0 - Dehydration Status: Acute Assessment and Plan: as above. Okay to stop IV fluids. (8) Obstructive sleep apnea on CPAP: Code(s): G47.33 - Obstructive sleep apnea (adult) (pediatric); Z99.89 - Dependence on other enabling machines and devices Status: Acute Assessment and Plan: Continue auto BiPAP here. Plan Positive D-dimer - lower extremity venous Doppler negative for DVT. Consider CTA of the chest if he develops symptoms concerning for PE. Hematuria - Gracia catheter secured due to large PVR. It was draining pink-tinged urine probably related to Gracia trauma or placemet due to BPH but urine has cleared.Continue Flomax for his BPH. Add Proscar Subjective Date/time seen: 08/12/22 16:55 Interval history: 77yo male with COPD, sleep apnea, and BPH here for evaluation after a ground level fall.? Slept okay last night. No chest pain, back pain or abdominal pain. He did have slight headache earlier but felt better after eating. No nausea or vomiting. He has been up walking the halls with therapy. Family in room and they were updated with patient's permission. Exam Narrative: AF 97.1 130/95 73 18 98% ra Gen - NARD Chest - CTA bilaterally, nml RR CV - RRR S1/S2. Telemetry showing brief regular tachycardic episodes (rate 150) probably SVT or ATach (no fluter waves) Abd - Soft. Obese. Positive bowel sounds. - Gracia catheter secured draining clear yellow urine. Ext - Tr
[2022-08-12 17:12] LABS: Magnesium 2.3 mg/dL (1.6-2.3); Potassium 2.9 mmol/L (3.4-5.0)
[2022-08-12] MEDS: FINASTERIDE 5 MG TABLET PO (20:42)
[2022-08-12] MEDS: GABAPENTIN 100 MG CAPSULE PO (20:42)
[2022-08-12] MEDS: hydrALAZINE HCL 20 MG/ML VIAL 10 MG IV PUSH (21:58)
[2022-08-13] VITALS (11 sets, daily range): BP systolic 114–205; BP diastolic 64–108; PULSE 62–84; RESP 19–20; TEMP 36.2–36.7; O2SAT 91–99
[2022-08-13] MEDS: LABETALOL HCL INJ 100 MG/20 ML VIAL 20 MG IV PUSH (00:07)
--- NOTE | 2022-08-13 02:26 | PC.NURSE ---
Respiratory called to place CPAP on pt.
[2022-08-13 07:55] LABS: Albumin Level 3.4 g/dL (3.5-5.1); Anion Gap 5 mmol/L (8-16); Blood Urea Nitrogen 10 mg/dL (9-20); Calcium 8.6 mg/dL (8.4-10.2); Carbon Dioxide 29 mmol/L (22-30); Chloride 102 mmol/L (98-107); Estimated CRCL calculation 59 ml/min; Estimated Glomerular Filt Rate 53; Glucose 86 mg/dL (65-110); Phosphorus 3.2 mg/dL (2.5-4.5); Sodium 136 mmol/L (137-145)
[2022-08-13] MEDS: ENOXAPARIN 40 MG/0.4 ML SYRINGE SUB-Q (09:08)
[2022-08-13] MEDS: ASCORBIC ACID 500 MG TABLET 1000 MG PO (09:09)
[2022-08-13] MEDS: MULTIVITAMINS THERAPEUTIC TAB (*BKC) 1 TABLET PO (09:09)
[2022-08-13] MEDS: amLODIPine BESYLATE 5 MG TABLET PO (09:09)
[2022-08-13] MEDS: TAMSULOSIN HCL 0.4 MG CAPSULE PO (09:09)
[2022-08-13] MEDS: ASPIRIN 81 MG ENTERIC TABLET PO (09:09)
[2022-08-13] MEDS: POTASSIUM CHLORIDE 20 MEQ TABLET 60 MEQ PO (13:41)
--- NOTE | 2022-08-13 14:19 | PM.IMPN ---
Progress Note: A&P Assessment and Plan (1) Fall from ground level: Code(s): W18.30XA - Fall on same level, unspecified, initial encounter Status: Acute Assessment and Plan: Patient presents to the ED after sustaining multiple falls. He does have bilateral lower extremity weakness. CT of the brain shows old lacunar infarct in the right basal ganglial but no acute findings. Lumbar spine CT shows no interval change in severe lumbar spondylosis. Pelvic, hip and knee x-rays show no acute fracture. TCK 109. Probably related to SAHARA/dehydration. Continue PT and OT. Patient and family worried about being discharged. Will have care consultant to discuss options. (2) Generalized weakness: Code(s): R53.1 - Weakness Status: Acute Assessment and Plan: Generalized weakness could be related to SAHARA and dehydration. Consider also related to residual condition after his influenza infection and underlying hx of CVA. TSH, B12 and folate are normal. Consider poorly treated sleep apnea but tolerating BiPAP. Continue therapy. (3) Elevated blood pressure reading: Code(s): R03.0 - Elevated blood-pressure reading, without diagnosis of hypertension Status: Acute Assessment and Plan: Patient has had elevated blood pressure at times over the past few years. He is currently not on antihypertensive medications. Norvasc added. SBP has wide range of 139 yesterday afternoon and 201 last night. Advance Norvasc to BID to see if can control night time HTN. (4) Acute kidney injury: Code(s): N17.9 - Acute kidney failure, unspecified Status: Acute Assessment and Plan: Patient with a baseline creatinine 1.1-1.3. Creatinine on admission here was 1.6 felt related to dehydration. Dehydration from poor oral intake from his recent infection plus his continued use of furosemide. Renal US showing left nephrectomy (removed due to cancer) o/w normal. Creatinine better and back to baseline. Off IV fluids now. Follow (5) Hypokalemia: Code(s): E87.6 - Hypokalemia Status: Acute Assessment and Plan: Potassium is low again probably related to the chronic depletion from Lasix as well as dilution from the IV fluids. Magnesium 2.0. Follow-up on repeat levels show potassium still low. Continue to replace until resolved. (6) Hypercalcemia: Code(s): E83.52 - Hypercalcemia Status: Acute Assessment and Plan: Calcium was mildly elevated prior related dehydration. With IV fluids,calcium has normalized. Resolved (7) Dehydration: Code(s): E86.0 - Dehydration Status: Acute Assessment and Plan: as above. Okay to stop IV fluids. (8) Obstructive sleep apnea on CPAP: Code(s): G47.33 - Obstructive sleep apnea (adult) (pediatric); Z99.89 - Dependence on other enabling machines and devices Status: Acute Assessment and Plan: Continue auto BiPAP here. Plan Positive D-dimer - lower extremity venous Doppler negative for DVT. Consider CTA of the chest if he develops symptoms concerning for PE. Hematuria - Gracia catheter secured due to large PVR. It was draining pink-tinged urine probably related to Gracia trauma or placement due to BPH but urine has cleared. Continue Flomax for his BPH. Proscar added. Voiding trial in the morning. Subjective Date/time seen: 08/13/22 14:19 Interval history: 77yo male with COPD, sleep apnea, and BPH here for evaluation after a ground level fall.? Patient ambulating in halls with walker. Worried he is too weak to be discharged. No CP or SOB but has AYERS. He did wear mask last night. Eating okay. BP elevated last nigt requiring Labetolol. Exam Narrative: AF 97.1 171/77 62 20 98% ra Gen - NARD sitting at the side of bed Chest - distant, clear BS. nml RR CV - RRR S1/S2. Abd - Soft. Obese. Positive bowel sounds. - Gracia catheter secured draining clear yellow uri
[2022-08-13] MEDS: FINASTERIDE 5 MG TABLET PO (20:02)
[2022-08-13] MEDS: GABAPENTIN 100 MG CAPSULE PO (20:02)
[2022-08-13] MEDS: hydrALAZINE HCL 20 MG/ML VIAL 10 MG IV PUSH (20:04)
[2022-08-14] VITALS (7 sets, daily range): BP systolic 163–181; BP diastolic 73–98; PULSE 69–78; RESP 18–20; TEMP 36.3–36.6; O2SAT 95–100
--- NOTE | 2022-08-14 04:51 | PC.NURSE ---
Pt angeles started draining bright red urine. Dr Zimmer called and verbally instructed this RN to flush the angeles until urine became clear in color. The RN flushed angeles with 3 10mL saline syringes. Urine now running clear. Pt instructed to leave angeles alone.
[2022-08-14 07:18] LABS: Anion Gap 5 mmol/L (8-16); Blood Urea Nitrogen 9 mg/dL (9-20); Calcium 8.6 mg/dL (8.4-10.2); Carbon Dioxide 30 mmol/L (22-30); Chloride 105 mmol/L (98-107); Estimated CRCL calculation 58 ml/min; Estimated Glomerular Filt Rate 53; Glucose 100 mg/dL (65-110); Sodium 140 mmol/L (137-145)
[2022-08-14] MEDS: ASPIRIN 81 MG ENTERIC TABLET PO (09:02)
[2022-08-14] MEDS: TAMSULOSIN HCL 0.4 MG CAPSULE PO (09:02)
[2022-08-14] MEDS: ASCORBIC ACID 500 MG TABLET 1000 MG PO (09:02)
[2022-08-14] MEDS: amLODIPine BESYLATE 5 MG TABLET PO ×2 (09:02→17:10)
[2022-08-14] MEDS: ENOXAPARIN 40 MG/0.4 ML SYRINGE SUB-Q (09:03)
[2022-08-14] MEDS: MULTIVITAMINS THERAPEUTIC TAB (*BKC) 1 TABLET PO (09:03)
--- NOTE | 2022-08-14 15:22 | PCPTNOTE ---
Attempted to see patient for PT, however unable to see patient due to patient's roommate getting sterile procedure and unable to enter patient's room.
[2022-08-14] MEDS: ACETAMINOPHEN 325 MG TABLET 650 MG PO (17:10)
--- NOTE | 2022-08-14 17:15 | PC.NURSE ---
Provider notified of pt output 0f 500 mls bloody urine.
--- NOTE | 2022-08-14 17:19 | PM.IMPN ---
Progress Note: A&P Assessment and Plan (1) Fall from ground level: Code(s): W18.30XA - Fall on same level, unspecified, initial encounter Status: Acute Assessment and Plan: Patient presents to the ED after sustaining multiple falls. He does have bilateral lower extremity weakness. CT of the brain shows old lacunar infarct in the right basal ganglial but no acute findings. Lumbar spine CT shows no interval change in severe lumbar spondylosis. Pelvic, hip and knee x-rays show no acute fracture. TCK 109. Probably related to SAHARA/dehydration. Continue PT and OT. Patient and family worried about being discharged. Will have ambulatory care nurse to discuss options. (2) Generalized weakness: Code(s): R53.1 - Weakness Status: Acute Assessment and Plan: Generalized weakness and deconditioning could be related to SAHARA and dehydration. Consider also related to residual condition after his influenza infection and underlying hx of CVA. TSH, B12 and folate are normal. Consider poorly treated sleep apnea but tolerating BiPAP. Continue therapy. (3) Elevated blood pressure reading: Code(s): R03.0 - Elevated blood-pressure reading, without diagnosis of hypertension Status: Acute Assessment and Plan: Patient has had elevated blood pressure at times over the past few years. He Was previously not on antihypertensive medications. Norvasc added. SBP peaked at 181/92 today. we Advanced Norvasc to BID to see if can control night time HTN. headache pain management with Tylenol p.r.n.. (4) Acute kidney injury: Code(s): N17.9 - Acute kidney failure, unspecified Status: Acute Assessment and Plan: Patient with a baseline creatinine 1.1-1.3. Creatinine on admission here was 1.6 felt related to dehydration. Dehydration from poor oral intake from his recent infection plus his continued use of furosemide. Renal US showing left nephrectomy (removed due to cancer) o/w normal. Due to history of kidney cancer and hematuria we have consulted the Urology Service. Creatinine better and back to baseline.at 1.3. (5) Hypokalemia: Code(s): E87.6 - Hypokalemia Status: Acute Assessment and Plan: Potassium is low again probably related to the chronic depletion from Lasix as well as dilution from the IV fluids. Magnesium 2.0. Follow-up on repeat levels show potassium still low. Continue to replace until resolved. (6) Hypercalcemia: Code(s): E83.52 - Hypercalcemia Status: Acute Assessment and Plan: Calcium was mildly elevated prior related dehydration. With IV fluids,calcium has normalized. Resolved (7) Dehydration: Code(s): E86.0 - Dehydration Status: Acute Assessment and Plan: as above. Okay to stop IV fluids. (8) Obstructive sleep apnea on CPAP: Code(s): G47.33 - Obstructive sleep apnea (adult) (pediatric); Z99.89 - Dependence on other enabling machines and devices Status: Acute Assessment and Plan: Continue auto BiPAP here. Plan Positive D-dimer - lower extremity venous Doppler negative for DVT. Consider CTA of the chest if he develops symptoms concerning for PE. Hematuria - Gracia catheter secured due to large PVR. It was draining pink-tinged urine probably related to Gracia trauma or placement due to BPH but urine has cleared. Continue Flomax for his BPH. Proscar added. Voiding trial in the morning. Subjective Date/time seen: 08/14/22 17:19 Interval history: 77yo male with with a past medical history including but not limited to COPD, sleep apnea, and BPH here for evaluation after a ground level fall.? Patient ambulating in halls with walker. Worried he is too weak to be discharged. No CP or SOB but has AYERS. He did wear mask last night. Eating okay. BP has been elevated throughout this admission a recurrent intermittent doses of labetalol. Review of Systems Review of
[2022-08-14] MEDS: POTASSIUM CHLORIDE 20 MEQ PACKET (FOR LIQUID) PO (18:19)
[2022-08-14 19:29] LABS: Anion Gap 7 mmol/L (8-16); Blood Urea Nitrogen 10 mg/dL (9-20); Carbon Dioxide 31 mmol/L (22-30); Chloride 101 mmol/L (98-107); Estimated CRCL calculation 54 ml/min; Estimated Glomerular Filt Rate 49; Glucose 119 mg/dL (65-110); Potassium 3.5 mmol/L (3.4-5.0); Sodium 139 mmol/L (137-145)
[2022-08-14] MEDS: FINASTERIDE 5 MG TABLET PO (20:27)
[2022-08-14] MEDS: GABAPENTIN 100 MG CAPSULE PO (20:27)
[2022-08-14] MEDS: ACETAMINOPHEN 500 MG TABLET 1000 MG PO (23:16)
--- NOTE | 2022-08-15 01:04 | PC.NURSE ---
pt experiencing pain. Dr Jenkins called and notified. One time dose of 1,000 mg Tylenol ordered. Per pt pain had not changed nor subsided. Dr jenkins notified and telephone ordered 1mg Dilaudid IV one time. warning appeared on screen due to pt being allergic to morphine. Dr jenkins notified and she wants to proceed with this mediation. Pharmacy contacted and agreed medication is okay to be given. Order will be placed and medication will be given per Dr turcios orders.
[2022-08-15] MEDS: HYDROmorphone HCL INJ (*CRX) 1 MG/ML SYR IV PUSH (01:43)
--- NOTE | 2022-08-15 03:30 | WPDURCON ---
Assessment and Plan Assessment and plan (1) Clot retention of urine: Code(s): R33.8 - Other retention of urine Status: Acute Plan I attempted to place a 22F 3 way catheter but was unable. I then attempted a 20F [place] over a glide wire successfully. The catheter was irrigated of clot until urine was light pink and draining freely. Patient tolerated well and reported he felt significantly better. He denies complaint at this time. Nursing instructed to irrigate catheter PRN and if there is any concern it is not draining with a piston syringe and sterile saline/water. He will need f/u with Dr. Webb and TOV with likely cystoscopy to ensure no bladder lesions. Urology Consult Note HPI Date Seen: 08/15/22 Requesting Physician: Pedro Doll MD Primary Care Provider: Aj Tejeda MD Consult Narrative Narrative: Jason Daigle is a 77 year old male admitted after several falls the other day. He had an indwelling coude catheter that was subsequently removed. Over the course of the day he has been unable to void. Nursing attempt was unsuccessful at catheter placement, and clots noted from urethra. consulted for evaluation. Review of Systems Constitutional: Constitutional: Reports as per HPI and Reports no additional constitutional complaints Eyes: Eyes: Reports no additional eye complaints ENT: Reports system reviewed and no additional complaints, except as documented Cardiovascular: Cardiovascular: Reports no additional cardiovascular complaints Respiratory: Respiratory: Reports no additional respiratory complaints Gastrointestinal: Gastrointestinal: Reports no additional gastrointestinal complaints Genitourinary: Genitourinary: Reports hematuria Musculoskeletal: Musculoskeletal: Reports no additional musculoskeletal complaints Integumentary/Breasts: Skin/Breast: Reports system reviewed and no additional complaints, except as docu Neurologic: Reports system reviewed and no additional complaints, except as documented [facility] Past Medical History Medical History (Updated 08/15/22 @ 03:32 by Ravi Quintanilla MD) COPD (chronic obstructive pulmonary disease) Edema of left lower extremity Hearing loss History of tobacco abuse IFG (impaired fasting glucose) MELANIE on CPAP Right leg DVT Sacral nerve stimulator present Surgical History Surgical History H/O colectomy 26 H/O left nephrectomy History of appendectomy Hx of bilateral hip replacements Family History Family History Sibling Malignant neoplasm of prostate Family history of pancreatic cancer Family history of lung cancer Social History Social History (Updated 08/10/22 @ 21:26 by Susy Driscoll PA-C) Social History: Surrogate medical decision maker: Roxana Quintanilla, daughter. Code status: Full code. Smoking packs per day: 1 Smoking cigarettes per day: 20.0 Years smoked: 30 Smoking pack-years: 30.00 Smoking status: Former smoker Tobacco type: cigarettes Second hand tobacco smoke exposure: No Smoking end date: 08/30/03 Alcohol intake: current Drinks per week: 3 Alcohol use details: 5-6 beers on Wednesdays and sometimes on Fridays with friends at [facility] [employer]. Substance use: never Substance use type: does not use Lack of Transportation: No Lack of Food: Never True Current Housing: I Have Housing Concerned About Future Housing: No Difficulty Paying Gas/Electric Bills: No Difficulty Paying for Meds: No Currently Unemployed: No Education: Master's Degree or Higher Difficulty w/ Childcare or Family Care: No Additional living arrangements comments: Lives with daughter and son-in-law. 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 Spiritual care concerns: No Meds Home Medications and Allergi
[2022-08-15 04:00] VITALS: BP 136/66; PULSE 77; RESP 18; TEMP 36.6; O2SAT 97
[2022-08-15] MEDS: ASCORBIC ACID 500 MG TABLET 1000 MG PO (09:08)
[2022-08-15] MEDS: ASPIRIN 81 MG ENTERIC TABLET PO (09:09)
[2022-08-15] MEDS: TAMSULOSIN HCL 0.4 MG CAPSULE PO (09:09)
[2022-08-15] MEDS: MULTIVITAMINS THERAPEUTIC TAB (*BKC) 1 TABLET PO (09:09)
[2022-08-15] MEDS: DOCUSATE SODIUM 100 MG CAPSULE PO ×2 (09:09→20:45)
[2022-08-15] MEDS: ENOXAPARIN 40 MG/0.4 ML SYRINGE SUB-Q (09:09)
[2022-08-15] MEDS: amLODIPine BESYLATE 5 MG TABLET 10 MG PO (09:09)
[2022-08-15] MEDS: LACTULOSE 20 GM/30 ML UDC PO (09:09)
[2022-08-15 13:05] LABS: Mucus Urine Few /lpf; RBC Urine >75 /hpf (0-2); WBC Clumps Urine Present /HPF; WBC Urine >75 /hpf
[2022-08-15 13:07] LABS: Appearance Urine Turbid (Clear); Color Urine Red (Yellow)
[2022-08-15 13:08] LABS: Add Urine Microscopic? YES
[2022-08-15 16:42] LABS: Anion Gap 4 mmol/L (8-16); Blood Urea Nitrogen 10 mg/dL (9-20); Calcium 8.9 mg/dL (8.4-10.2); Carbon Dioxide 31 mmol/L (22-30); Chloride 99 mmol/L (98-107); Estimated CRCL calculation 58 ml/min; Estimated Glomerular Filt Rate 53; Glucose 107 mg/dL (65-110); Potassium 3.1 mmol/L (3.4-5.0); Sodium 134 mmol/L (137-145)
--- NOTE | 2022-08-15 17:15 | PM.IMPN ---
Progress Note: A&P Assessment and Plan (1) Fall from ground level: Code(s): W18.30XA - Fall on same level, unspecified, initial encounter Status: Acute Assessment and Plan: Patient presents to the ED after sustaining multiple falls. He does have bilateral lower extremity weakness. CT of the brain on admission shows old lacunar infarct in the right basal ganglial but no acute findings. Patient daughter is concerned about altered mental status today. Will repeat the CT of the head. (2) Generalized weakness: Code(s): R53.1 - Weakness Status: Acute Assessment and Plan: Generalized weakness and deconditioning could be related to SAHARA and dehydration. 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 Consider also related to residual condition after his influenza infection and underlying hx of CVA. TSH, B12 and folate are normal. Consider poorly treated sleep apnea but tolerating BiPAP. Continue therapy. (3) Elevated blood pressure reading: Code(s): R03.0 - Elevated blood-pressure reading, without diagnosis of hypertension Status: Acute Assessment and Plan: Patient has had elevated blood pressure at times over the past few years. He Was previously not on antihypertensive medications. Norvasc added. SBP peaked at 181/92 yesterday to improve to 136/66 . Continue permissive hypertension given AMS. (4) Acute kidney injury: Code(s): N17.9 - Acute kidney failure, unspecified Status: Acute Assessment and Plan: Patient with a baseline creatinine 1.1-1.3. Creatinine on admission here was 1.6 felt related to dehydration. Dehydration from poor oral intake from his recent infection plus his continued use of furosemide. Renal US showing left nephrectomy (removed due to cancer) o/w normal. Due to history of kidney cancer and hematuria we have consulted the Urology Service. Creatinine better and back to baseline.at 1.3. (5) Hypokalemia: Code(s): E87.6 - Hypokalemia Status: Acute Assessment and Plan: Potassium is low again probably related to the chronic depletion from Lasix as well as dilution from the IV fluids. Magnesium 2.0. Follow-up on repeat levels show potassium still low. Continue to replace until resolved. Repeat K level tomorrow. (6) Hypercalcemia: Code(s): E83.52 - Hypercalcemia Status: Acute Assessment and Plan: Calcium was mildly elevated prior related dehydration. With IV fluids,calcium has normalized. Resolved (7) Dehydration: Code(s): E86.0 - Dehydration Status: Acute Assessment and Plan: as above. Okay to stop IV fluids. (8) Obstructive sleep apnea on CPAP: Code(s): G47.33 - Obstructive sleep apnea (adult) (pediatric); Z99.89 - Dependence on other enabling machines and devices Status: Acute Assessment and Plan: Continue auto BiPAP here. (9) Clot retention of urine: Code(s): R33.8 - Other retention of urine Status: Acute Plan Positive D-dimer - lower extremity venous Doppler negative for DVT. Consider CTA of the chest if he develops symptoms concerning for PE. Hematuria - Gracia catheter secured due to large PVR. It was draining pink-tinged urine probably related to Gracia trauma or placement due to BPH but urine has cleared. Continue Flomax for his BPH. Proscar added. Voiding trial with urology as an outpatient. He will likely need a cystoscopy. Time Spent With Patient Time with patient: 15 - 25 minutes Subjective Date/time seen: 08/15/22 18:15 Interval history: 77yo male with with a past medical history including but not limited to COPD, sleep apnea, and BPH here for evaluation after a ground level fall.? Patient was seen and examined at the bedside. His daughter is complaining of altered mental status. Patient was observed eating okay. BP control is improving today. Head CT was ordered. Will allow permissive hyperten
[2022-08-15] MEDS: POTASSIUM CHLORIDE 20 MEQ PACKET (FOR LIQUID) 40 MEQ PO (18:24)
[2022-08-15 20:00] VITALS: BP 147/92; PULSE 84; RESP 14; TEMP 36.5; O2SAT 95
[2022-08-15] MEDS: GABAPENTIN 100 MG CAPSULE PO (20:45)
[2022-08-15] MEDS: FINASTERIDE 5 MG TABLET PO (20:45)
[2022-08-15 21:38] VITALS: PULSE 89; RESP 24; O2SAT 95
[2022-08-15 22:00] VITALS: BP 147/92; PULSE 84; RESP 14; TEMP 36.5; O2SAT 95
[2022-08-16] VITALS (12 sets, daily range): BP systolic 125–193; BP diastolic 46–91; PULSE 68–81; RESP 14–20; TEMP 36.1–37; O2SAT 96–98
[2022-08-16] MEDS: WATER FOR IRRIGATION, STERILE 1,000 ML BOTTLE 1000 ML (06:22)
--- NOTE | 2022-08-16 09:23 | PM.IMPN ---
Progress Note: A&P Assessment and Plan (1) Fall from ground level: Code(s): W18.30XA - Fall on same level, unspecified, initial encounter Status: Acute Assessment and Plan: Patient presents to the ED after sustaining multiple falls. He does have bilateral lower extremity weakness. CT of the brain on admission shows old lacunar infarct in the right basal ganglial but no acute findings. Patient daughter is concerned about altered mental status today. Will repeat the CT of the head. 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 Physical therapy and occupational therapy for discharge planning. (2) Generalized weakness: Code(s): R53.1 - Weakness Status: Acute Assessment and Plan: Generalized weakness and deconditioning could be related to SAHARA and dehydration. 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 Consider also related to residual condition after his influenza infection and underlying hx of CVA. TSH, B12 and folate are normal. Consider poorly treated sleep apnea but tolerating BiPAP. Continue therapy. (3) Elevated blood pressure reading: Code(s): R03.0 - Elevated blood-pressure reading, without diagnosis of hypertension Status: Acute Assessment and Plan: Patient has had elevated blood pressure at times over the past few years. He Was previously not on antihypertensive medications. Norvasc added. SBP peaked at 181/92 yesterday to improve to 136/66 . Blood pressure moderately controlled at 150/77 today. Continue to monitor. (4) Acute kidney injury: Code(s): N17.9 - Acute kidney failure, unspecified Status: Acute Assessment and Plan: Patient with a baseline creatinine 1.1-1.3. Creatinine on admission here was 1.6 felt related to dehydration. Dehydration from poor oral intake from his recent infection plus his continued use of furosemide. Renal US showing left nephrectomy (removed due to cancer) o/w normal. Due to history of kidney cancer and hematuria we have consulted the Urology Service. Creatinine better and back to baseline.at 1.3. (5) Hypokalemia: Code(s): E87.6 - Hypokalemia Status: Acute Assessment and Plan: Potassium is low again probably related to the chronic depletion from Lasix as well as dilution from the IV fluids. Magnesium 1.8. Follow-up on repeat levels show potassium still low. Continue to replace until resolved. Repeat K level tomorrow. (6) Hypercalcemia: Code(s): E83.52 - Hypercalcemia Status: Acute Assessment and Plan: Calcium was mildly elevated prior related dehydration. With IV fluids,calcium has normalized. Resolved (7) Dehydration: Code(s): E86.0 - Dehydration Status: Acute Assessment and Plan: as above. Okay to stop IV fluids. (8) Obstructive sleep apnea on CPAP: Code(s): G47.33 - Obstructive sleep apnea (adult) (pediatric); Z99.89 - Dependence on other enabling machines and devices Status: Acute Assessment and Plan: Continue auto BiPAP here. (9) Clot retention of urine: Code(s): R33.8 - Other retention of urine Status: Acute Assessment and Plan: Patient was evaluated by Urology. Plan is to maintain Gracia in place, patient will likely require voiding trial and cystoscopy as outpatient with Dr. Webb. Plan Positive D-dimer - lower extremity venous Doppler negative for DVT. Consider CTA of the chest if he develops symptoms concerning for PE. Hematuria - Gracia catheter secured due to large PVR. It was draining pink-tinged urine probably related to Gracia trauma or placement due to BPH but urine has cleared. Continue Flomax for his BPH. Proscar added. Voiding trial with urology as an outpatient. He will likely need a cystoscopy. Time Spent With Patient Time with patient: 15 - 25 minutes Subjective Date/time seen: 08/16/22 17:23 Interval history: 77yo male with with a
--- NOTE | 2022-08-16 09:40 | WPDUROPN2 ---
Progress Note: A&P Assessment and Plan (1) Clot retention of urine: Code(s): R33.8 - Other retention of urine Status: Acute Plan 1. Maintain Gracia, patient will likely require trial of void and cystoscopy as outpatient with Dr. Webb. 2. CT Urogram for hematuria--eGFR today 53. Subjective Subjective Date/Time Seen: 08/16/22 09:40 MIKE, patient reports feeling significantly better, urine pink tinged--improving. Exam Narrative: NAD, sitting at side of bed and eating breakfast. A&Ox3 RRR ewOB S/NT/ND Gracia with pink urine. Objective Data Vital Signs Vital Signs: Vital Signs - 24 hr 08/15/22 20:00 08/15/22 21:38 08/15/22 20:45 Temperature 97.7 F Pulse Rate 84 89 Respiratory Rate 14 24 H Blood Pressure 147/92 H Pulse Oximetry 95 95 Oxygen Delivery CPAP CPAP 08/16/22 00:27 08/15/22 22:00 08/16/22 05:46 Temperature 97.7 F 96.9 F L Pulse Rate 84 68 Respiratory Rate 14 14 14 Blood Pressure 147/92 H 138/46 L Pulse Oximetry 95 97 Oxygen Delivery CPAP Intake/Output Intake/Output: Intake & Output 08/13/22 08/14/22 08/15/22 08/16/22 23:59 23:59 23:59 23:59 Intake Total 1018 620 720 740 Output Total 1925 0916 222 9718 Balance -907 -1030 370 -660 Meds/Results Medications: Active Medications Generic Name Dose Route Start Last Admin Trade Name Freq PRN Reason Stop Dose Admin Acetaminophen 650 mg 08/14/22 16:50 08/14/22 17:10 Acetaminophen 325 Mg Tablet PO 650 mg Q4H PRN Administration Mild Pain (1-3) or Fever Albuterol 1 - 2 puff 08/10/22 21:37 Albuterol Sulfate (*Sp) Aerosol 1 Puff INHALATION Q4-6H PRN shortness of breath or wheezing Amlodipine Besylate 10 mg 08/15/22 09:00 08/15/22 09:09 Amlodipine Besylate 5 Mg Tablet PO 10 mg QAM TEJAS Administration Ascorbic Acid 1,000 mg 08/11/22 09:00 08/15/22 09:08 Ascorbic Acid 500 Mg Tablet PO 1,000 mg DAILY TEJAS Administration Aspirin 81 mg 08/11/22 09:00 08/15/22 09:09 Aspirin 81 Mg Enteric Tablet PO 81 mg DAILY TEJAS Administration Docusate Sodium 100 mg 08/14/22 22:25 08/15/22 20:45 Docusate Sodium 100 Mg Capsule PO 100 mg Q12HR TEJAS Administration Enoxaparin Sodium 40 mg 08/11/22 09:00 08/15/22 09:09 Enoxaparin 40 Mg/0.4 Ml Syringe SUB-Q 40 mg DAILY TEJAS Administration Finasteride 5 mg 08/12/22 21:00 08/15/22 20:45 Finasteride 5 Mg Tablet PO 5 mg QHS TEJAS Administration Gabapentin 100 mg 08/11/22 21:00 08/15/22 20:45 Gabapentin 100 Mg Capsule PO 100 mg HS TEJAS Administration Lactulose 20 gm 08/15/22 09:00 08/15/22 09:09 Lactulose 20 Gm/30 Ml Udc PO 20 gm QAM TEJAS Administration Multivitamins Therapeutic 1 tablet 08/11/22 09:00 08/15/22 09:09 Multivitamins Therapeutic Tab (*Bkc) PO 1 tablet DAILY TEJAS Administration Non-Formulary Medication 54 mg 08/11/22 09:00 08/11/22 12:56 Fenofibrate PO 09/10/22 08:59 Not Given DAILY TEJAS Tamsulosin HCl 0.4 mg 08/11/22 09:00 08/15/22 09:09 Tamsulosin Hcl 0.4 Mg Capsule PO 0.4 mg DAILY TEJAS Administration Radiology Results: ITS Impressions Lumbar Spine CT 08/10/22 10:06 IMPRESSION: 1. No significant interval change in severe lumbar spondylosis. No acute osseous abnormality. Chest X-Ray 08/10/22 10:12 IMPRESSION: 1. No acute cardiopulmonary disease. Knee X-Ray 08/10/22 10:13 IMPRESSION: 1. Mild right knee osteoarthritis. Hip/Pelvis X-Ray 08/10/22 10:15 IMPRESSION: 1. Bilateral total hip arthroplasties in near-anatomic alignment. Venous Doppler Study 08/10/22 12:45 IMPRESSION: 1. Patent bilateral lower extremity veins. No evidence of deep venous thrombosis. Renal Ultrasound 08/15/22 16:16 IMPRESSION: 1. 4.1 cm right renal cyst. Otherwise normal right kidney without hydronephrosis. 2. Status post left nephrectomy. Head CT 08/16/22 09:29 IMPRESSION: 1. No acute int
[2022-08-16] MEDS: TAMSULOSIN HCL 0.4 MG CAPSULE PO (09:42)
[2022-08-16] MEDS: ASPIRIN 81 MG ENTERIC TABLET PO (09:42)
[2022-08-16] MEDS: ASCORBIC ACID 500 MG TABLET 1000 MG PO (09:42)
[2022-08-16] MEDS: amLODIPine BESYLATE 5 MG TABLET 10 MG PO (09:42)
[2022-08-16] MEDS: DOCUSATE SODIUM 100 MG CAPSULE PO ×2 (09:42→21:44)
[2022-08-16] MEDS: MULTIVITAMINS THERAPEUTIC TAB (*BKC) 1 TABLET PO (09:42)
[2022-08-16] MEDS: LACTULOSE 20 GM/30 ML UDC PO (09:42)
[2022-08-16 11:00] LABS: Hematocrit 38.4 % (42.0-52.0); Mean Corpuscular HGB Conc 33.9 g/dl (32-36); Mean Corpuscular Hemoglobin 33.6 pg (26-34); Mean Corpuscular Volume 99.2 fl (80-100); Platelet Count Result 242 k/mm3 (150-375); Red Blood Count 3.87 M/mm3 (4.6-6.20); Red Cell Distribution Width 13.5 % (11.5-14.5); White Blood Count 6.6 K/mm3 (4.5-10.0)
[2022-08-16 11:20] LABS: Anion Gap 2 mmol/L (8-16); Blood Urea Nitrogen 9 mg/dL (9-20); Calcium 8.8 mg/dL (8.4-10.2); Carbon Dioxide 34 mmol/L (22-30); Chloride 100 mmol/L (98-107); Estimated CRCL calculation 58 ml/min; Estimated Glomerular Filt Rate 53; Glucose 98 mg/dL (65-110); Potassium 3.1 mmol/L (3.4-5.0); Sodium 136 mmol/L (137-145)
--- NOTE | 2022-08-16 15:17 | PCOTNOTE ---
Attempted to see pt for occupational therapy treatment, however, pt refused to participate stating I just got back from a walk and I am tired right now. Pt was educated on the benefits of continued participation with therapy and verbally agreed with it however, pt still refuses. Per RN, pt had walked with CONTRACT TECHNICIAN after lunch today. Will continue per POC duration/frequency tomorrow.
[2022-08-16] MEDS: POTASSIUM CHLORIDE 20 MEQ PACKET (FOR LIQUID) 40 MEQ PO (18:31)
[2022-08-16 18:39] LABS: Anion Gap 4 mmol/L (8-16); Blood Urea Nitrogen 10 mg/dL (9-20); Carbon Dioxide 32 mmol/L (22-30); Chloride 99 mmol/L (98-107); Estimated CRCL calculation 58 ml/min; Estimated Glomerular Filt Rate 53; Glucose 118 mg/dL (65-110); Potassium 2.9 mmol/L (3.4-5.0); Sodium 135 mmol/L (137-145)
[2022-08-16] MEDS: FINASTERIDE 5 MG TABLET PO (21:45)
[2022-08-16] MEDS: GABAPENTIN 100 MG CAPSULE PO (21:47)
[2022-08-17] VITALS (9 sets, daily range): BP systolic 132–174; BP diastolic 65–116; PULSE 71–84; RESP 14–24; TEMP 36.2–36.6; O2SAT 94–99
--- NOTE | 2022-08-17 08:36 | WPDUROPN2 ---
Progress Note: A&P Assessment and Plan (1) Gross hematuria: Code(s): R31.0 - Gross hematuria Status: Acute Assessment and Plan: home with Gracia catheter and outpatient follow-up with Dr. Webb Subjective Subjective Date/Time Seen: 08/17/22 08:36 urine light pink. Draining well. Renal ultrasound noted. Bladder is decompressed Exam Narrative: no acute distress normal breathing alert oriented x3 Gracia catheter with pink tinged urine Objective Data Vital Signs Vital Signs: Vital Signs - 24 hr 08/16/22 09:59 08/16/22 09:40 08/16/22 15:09 Temperature 97.2 F L 97.4 F L Pulse Rate 77 73 Respiratory Rate 16 16 Blood Pressure 152/76 H 150/77 H Pulse Oximetry 98 96 96 Oxygen Delivery Room Air 08/16/22 18:24 08/16/22 18:25 08/16/22 20:48 Temperature 97.7 F 97.7 F 98.6 F Pulse Rate 81 81 80 Respiratory Rate 16 16 20 Blood Pressure 176/83 H 193/88 H 125/90 Pulse Oximetry 98 98 97 Oxygen Delivery 08/16/22 20:00 08/17/22 00:27 08/16/22 20:05 Temperature 97.9 F Pulse Rate 74 Respiratory Rate 16 Blood Pressure 160/78 H 160/78 H 184/82 H Pulse Oximetry 99 Oxygen Delivery 08/16/22 20:10 08/16/22 21:45 08/17/22 04:27 Temperature 97.9 F Pulse Rate 71 Respiratory Rate 18 Blood Pressure 182/89 H 174/80 H Pulse Oximetry 96 Oxygen Delivery Room Air Intake/Output Intake/Output: Intake & Output 08/14/22 08/15/22 08/16/22 08/17/22 23:59 23:59 23:59 23:59 Intake Total 580 711 0429 350 Output Total 2560 231 7563 1375 Balance -1030 823 -1189 -1028 Meds/Results Medications: Active Medications Generic Name Dose Route Start Last Admin Trade Name Freq PRN Reason Stop Dose Admin Acetaminophen 650 mg 08/14/22 16:50 08/14/22 17:10 Acetaminophen 325 Mg Tablet PO 650 mg Q4H PRN Administration Mild Pain (1-3) or Fever Albuterol 1 - 2 puff 08/10/22 21:37 Albuterol Sulfate (*Sp) Aerosol 1 Puff INHALATION Q4-6H PRN shortness of breath or wheezing Amlodipine Besylate 10 mg 08/15/22 09:00 08/16/22 09:42 Amlodipine Besylate 5 Mg Tablet PO 10 mg QAM TEJAS Administration Ascorbic Acid 1,000 mg 08/11/22 09:00 08/16/22 09:42 Ascorbic Acid 500 Mg Tablet PO 1,000 mg DAILY TEJAS Administration Aspirin 81 mg 08/11/22 09:00 08/16/22 09:42 Aspirin 81 Mg Enteric Tablet PO 81 mg DAILY TEJAS Administration Docusate Sodium 100 mg 08/14/22 22:25 08/16/22 21:44 Docusate Sodium 100 Mg Capsule PO 100 mg Q12HR TEJAS Administration Enoxaparin Sodium 40 mg 08/11/22 09:00 08/16/22 09:53 Enoxaparin 40 Mg/0.4 Ml Syringe SUB-Q Not Given DAILY TEJAS Finasteride 5 mg 08/12/22 21:00 08/16/22 21:45 Finasteride 5 Mg Tablet PO 5 mg QHS TEJAS Administration Gabapentin 100 mg 08/11/22 21:00 08/16/22 21:47 Gabapentin 100 Mg Capsule PO 100 mg HS TEJAS Administration Lactulose 20 gm 08/15/22 09:00 08/16/22 09:42 Lactulose 20 Gm/30 Ml Udc PO 20 gm QAM TEJAS Administration Multivitamins Therapeutic 1 tablet 08/11/22 09:00 08/16/22 09:42 Multivitamins Therapeutic Tab (*Bkc) PO 1 tablet DAILY TEJAS Administration Non-Formulary Medication 54 mg 08/11/22 09:00 08/11/22 12:56 Fenofibrate PO 09/10/22 08:59 Not Given DAILY TEJAS Tamsulosin HCl 0.4 mg 08/11/22 09:00 08/16/22 09:42 Tamsulosin Hcl 0.4 Mg Capsule PO 0.4 mg DAILY TEJAS Administration Radiology Results: ITS Impressions Lumbar Spine CT 08/10/22 10:06 IMPRESSION: 1. No significant interval change in severe lumbar spondylosis. No acute osseous abnormality. Chest X-Ray 08/10/22 10:12 IMPRESSION: 1. No acute cardiopulmonary disease. Knee X-Ray 08/10/22 10:13 IMPRESSION: 1. Mild right knee osteoarthritis. Hip/Pelvis X-Ray 08/10/22 10:15 IMPRESSION: 1. Bilateral total hip arthroplasties in near-anatomic alignment. Venous Doppler Study 08/10/22 12:45 IMP
[2022-08-17] MEDS: amLODIPine BESYLATE 5 MG TABLET 10 MG PO (08:52)
[2022-08-17] MEDS: DOCUSATE SODIUM 100 MG CAPSULE PO ×2 (08:52→20:57)
[2022-08-17] MEDS: TAMSULOSIN HCL 0.4 MG CAPSULE PO (08:52)
[2022-08-17] MEDS: ASPIRIN 81 MG ENTERIC TABLET PO (08:52)
[2022-08-17] MEDS: LACTULOSE 20 GM/30 ML UDC PO (08:52)
[2022-08-17] MEDS: ASCORBIC ACID 500 MG TABLET 1000 MG PO (08:52)
[2022-08-17] MEDS: MULTIVITAMINS THERAPEUTIC TAB (*BKC) 1 TABLET PO (08:52)
--- NOTE | 2022-08-17 10:44 | PM.IMPN ---
Progress Note: A&P Assessment and Plan (1) Fall from ground level: Code(s): W18.30XA - Fall on same level, unspecified, initial encounter Status: Acute Assessment and Plan: Patient presents to the ED after sustaining multiple falls. He does have bilateral lower extremity weakness. CT of the brain on admission shows old lacunar infarct in the right basal ganglial but no acute findings. Patient daughter is concerned about altered mental status today. Will repeat the CT of the head. hot blast worker evaluation for home health aide placement. Physical therapy and occupational therapy for discharge planning. (2) Generalized weakness: Code(s): R53.1 - Weakness Status: Acute Assessment and Plan: Generalized weakness and deconditioning could be related to SAHARA and dehydration. hot blast worker evaluation for home health aide. Consider also related to residual condition after his influenza infection and underlying hx of CVA. TSH, B12 and folate are normal. Consider poorly treated sleep apnea but tolerating BiPAP. Continue therapy. (3) Elevated blood pressure reading: Code(s): R03.0 - Elevated blood-pressure reading, without diagnosis of hypertension Status: Acute Assessment and Plan: Patient has had elevated blood pressure at times over the past few years. He Was previously not on antihypertensive medications. Norvasc added. SBP peaked at 181/92 yesterday to improve to 136/66 . Blood pressure moderately controlled at 146/77 today. Further titration can be perform as an outpatient. Continue to monitor. (4) Acute kidney injury: Code(s): N17.9 - Acute kidney failure, unspecified Status: Acute Assessment and Plan: Patient with a baseline creatinine 1.1-1.3. Creatinine on admission here was 1.6 felt related to dehydration. Dehydration from poor oral intake from his recent infection plus his continued use of furosemide. Renal US showing left nephrectomy (removed due to cancer) o/w normal. Due to history of kidney cancer and hematuria we have consulted the Urology Service. Creatinine better and back to baseline.at 1.3. (5) Hypokalemia: Code(s): E87.6 - Hypokalemia Status: Acute Assessment and Plan: Potassium is low normal at 3.4 today. Continue to replace until resolved. Repeat K level tomorrow. (6) Hypercalcemia: Code(s): E83.52 - Hypercalcemia Status: Acute Assessment and Plan: Calcium was mildly elevated prior related dehydration. With IV fluids,calcium has normalized. Resolved (7) Dehydration: Code(s): E86.0 - Dehydration Status: Acute Assessment and Plan: Oral intake is adequate. Patient is eating and drinking. (8) Obstructive sleep apnea on CPAP: Code(s): G47.33 - Obstructive sleep apnea (adult) (pediatric); Z99.89 - Dependence on other enabling machines and devices Status: Acute Assessment and Plan: Continue auto BiPAP here. (9) Clot retention of urine: Code(s): R33.8 - Other retention of urine Status: Acute Assessment and Plan: Patient was evaluated by Urology. Plan is to maintain Gracia in place, patient will likely require voiding trial and cystoscopy as outpatient with Dr. Webb. Plan for CT scan of the abdomen today. Plan Positive D-dimer - lower extremity venous Doppler negative for DVT. Consider CTA of the chest if he develops symptoms concerning for PE. Hematuria - Gracia catheter secured due to large PVR. It was draining pink-tinged urine probably related to Gracia trauma or placement due to BPH but urine has cleared. Continue Flomax for his BPH. Proscar added. Voiding trial with urology as an outpatient. He will likely need a cystoscopy. Time Spent With Patient Time with patient: 15 - 25 minutes Subjective Date/time seen: 08/17/22 10:44 Interval history: 77yo male with with a past medical history including but n
[2022-08-17] MEDS: POTASSIUM CHLORIDE INJ 40 MEQ in SODIUM CHLORIDE 0.9% IV 500 ML 130 MEQ IVPB (11:35)
[2022-08-17 11:36] LABS: Anion Gap 4 mmol/L (8-16); Blood Urea Nitrogen 9 mg/dL (9-20); Calcium 9.2 mg/dL (8.4-10.2); Carbon Dioxide 32 mmol/L (22-30); Chloride 102 mmol/L (98-107); Estimated CRCL calculation 58 ml/min; Estimated Glomerular Filt Rate 53; Glucose 103 mg/dL (65-110); Potassium 3.4 mmol/L (3.4-5.0); Sodium 138 mmol/L (137-145)
--- NOTE | 2022-08-17 13:37 | PCPTNOTE ---
The patient treatment was not able to be completed at this time due to patient out of room for testing. Will plan to continue treatment per plan of care.
--- NOTE | 2022-08-17 15:17 | PC.NURSE ---
Pt states bladder feels full and has been peeing , credit underwriter irrigated cath returned dime size clot and then returned with blood tinged urine, patency restored.
[2022-08-17 19:15] LABS: Anion Gap 3 mmol/L (8-16); Blood Urea Nitrogen 10 mg/dL (9-20); Calcium 9.3 mg/dL (8.4-10.2); Carbon Dioxide 31 mmol/L (22-30); Chloride 100 mmol/L (98-107); Estimated CRCL calculation 58 ml/min; Estimated Glomerular Filt Rate 53; Glucose 119 mg/dL (65-110); Potassium 3.3 mmol/L (3.4-5.0); Sodium 134 mmol/L (137-145)
[2022-08-17] MEDS: GABAPENTIN 100 MG CAPSULE PO (20:57)
[2022-08-17] MEDS: FINASTERIDE 5 MG TABLET PO (20:58)
--- NOTE | 2022-08-17 23:45 | PCRCNOTE ---
refused our cpap it is at bedside
[2022-08-18] VITALS (13 sets, daily range): BP systolic 152–212; BP diastolic 28–112; PULSE 70–92; RESP 18–22; TEMP 36.2–37.2; O2SAT 95–97
[2022-08-18] MEDS: hydrALAZINE HCL 20 MG/ML VIAL 10 MG IV PUSH (00:52)
[2022-08-18] MEDS: amLODIPine BESYLATE 5 MG TABLET 10 MG PO (08:15)
[2022-08-18] MEDS: ASPIRIN 81 MG ENTERIC TABLET PO (08:15)
[2022-08-18] MEDS: LACTULOSE 20 GM/30 ML UDC PO (08:15)
[2022-08-18] MEDS: DOCUSATE SODIUM 100 MG CAPSULE PO ×2 (08:16→21:01)
[2022-08-18] MEDS: TAMSULOSIN HCL 0.4 MG CAPSULE PO (08:16)
[2022-08-18] MEDS: ASCORBIC ACID 500 MG TABLET 1000 MG PO (08:16)
[2022-08-18] MEDS: MULTIVITAMINS THERAPEUTIC TAB (*BKC) 1 TABLET PO (08:16)
--- NOTE | 2022-08-18 10:12 | PCNWS ---
Weekly nutritional screen. Patient is tolerating current heart healthy diet with adequate intake 75-100%. No weight loss reported. No nutritional needs at this time.
--- NOTE | 2022-08-18 17:01 | PM.IMPN ---
Progress Note: A&P Assessment and Plan (1) Fall from ground level: Code(s): W18.30XA - Fall on same level, unspecified, initial encounter Status: Acute Assessment and Plan: Patient presents to the ED after sustaining multiple falls. He does have bilateral lower extremity weakness. CT of the brain on admission shows old lacunar infarct in the right basal ganglial but no acute findings. Patient daughter is concerned about altered mental status today. Ct head unremarkable . Patient noted that he had generalized weakness not just localized to this LEs, but noted marked improvement in energy and he is able to walk around. runner worker evaluation for home health aide placement. Physical therapy and occupational therapy for discharge planning. (2) Generalized weakness: Code(s): R53.1 - Weakness Status: Acute Assessment and Plan: Generalized weakness and deconditioning could be related to SAHARA and dehydration. runner worker evaluation for home health aide. Consider also related to residual condition after his influenza infection and underlying hx of CVA. TSH, B12 and folate are normal. Consider poorly treated sleep apnea but tolerating BiPAP. Continue therapy. improving (3) Elevated blood pressure reading: Code(s): R03.0 - Elevated blood-pressure reading, without diagnosis of hypertension Status: Acute Assessment and Plan: Patient has had elevated blood pressure at times over the past few years. He Was previously not on antihypertensive medications. Norvasc added. SBP peaked at 181/92 yesterday to improve to 136/66 . Blood pressure moderately controlled at 146/77 today. Further titration can be perform as an outpatient. Continue to monitor. (4) Acute kidney injury: Code(s): N17.9 - Acute kidney failure, unspecified Status: Acute Assessment and Plan: Patient with a baseline creatinine 1.1-1.3. Creatinine on admission here was 1.6 felt related to dehydration. Dehydration from poor oral intake from his recent infection plus his continued use of furosemide. Renal US showing left nephrectomy (removed due to cancer) o/w normal. Due to history of kidney cancer and hematuria we have consulted the Urology Service. Creatinine better and back to baseline.at 1.3. (5) Hypokalemia: Code(s): E87.6 - Hypokalemia Status: Acute Assessment and Plan: replaced, monitor (6) Hypercalcemia: Code(s): E83.52 - Hypercalcemia Status: Acute Assessment and Plan: Calcium was mildly elevated prior related dehydration. With IV fluids,calcium has normalized. Resolved (7) Dehydration: Code(s): E86.0 - Dehydration Status: Acute Assessment and Plan: Oral intake is adequate. Patient is eating and drinking. (8) Obstructive sleep apnea on CPAP: Code(s): G47.33 - Obstructive sleep apnea (adult) (pediatric); Z99.89 - Dependence on other enabling machines and devices Status: Acute Assessment and Plan: Continue auto BiPAP here. (9) Clot retention of urine: Code(s): R33.8 - Other retention of urine Status: Acute Assessment and Plan: Continue Gracia urology following (10) Gross hematuria: Code(s): R31.0 - Gross hematuria Status: Acute Assessment and Plan: still having gross hematuria, CT scan showed bladder diverticulum Urology following monitor h and H, and transfuse if Hb is <7 Subjective Date/time seen: 08/18/22 17:01 Interval history: 77yo male with with a past medical history including but not limited to COPD, sleep apnea, and BPH here for evaluation after a ground level fall.? Patient was seen and examined at the bedside. Patient is awake alert oriented x3. He denies any complaint at the time of the encounter. still having gross hematuria with clots, Ct showd urinary bladder diverticulum Review of Systems Review of Syst
[2022-08-18 17:26] LABS: Anion Gap 5 mmol/L (8-16); Blood Urea Nitrogen 9 mg/dL (9-20); Calcium 9.4 mg/dL (8.4-10.2); Carbon Dioxide 31 mmol/L (22-30); Chloride 98 mmol/L (98-107); Estimated CRCL calculation 63 ml/min; Estimated Glomerular Filt Rate 58; Glucose 95 mg/dL (65-110); Potassium 3.1 mmol/L (3.4-5.0); Sodium 134 mmol/L (137-145)
[2022-08-18] MEDS: FINASTERIDE 5 MG TABLET PO (21:01)
[2022-08-18] MEDS: GABAPENTIN 100 MG CAPSULE PO (21:01)
[2022-08-19] VITALS (14 sets, daily range): BP systolic 109–159; BP diastolic 54–85; PULSE 64–92; RESP 10–20; TEMP 36.6–36.9; O2SAT 93–100
[2022-08-19 08:00] LABS: Basophils Absolute Auto 0.1 K/mm3 (0.0-0.1); Eosinophils Absolute Auto 0.2 K/mm3 (0-0.3); Eosinophils Percent Auto 3.6 % (0-4.4); Hematocrit 34.8 % (42.0-52.0); Hemoglobin 11.9 g/dL (14.0-18.0); Immature Granulocyte Absolute 0.02 K/mm3 (0.00-0.031); Immature Granulocyte Percent A 0.3 % (0-0.5); Lymphocytes Absolute Auto 1.64 K/mm3 (0.9-3.2); Lymphocytes Percent Auto 27.1 % (18.3-44.2); Mean Corpuscular HGB Conc 34.2 g/dl (32-36); Mean Corpuscular Hemoglobin 32.8 pg (26-34); Mean Corpuscular Volume 95.9 fl (80-100); Monocytes Absolute Auto 0.9 K/mm3 (0.1-0.6); Monocytes Percent Auto 14.5 % (2.6-8.5); Neutrophils Absolute Auto 3.2 K/mm3 (1.3-6.7); Neutrophils Percent Auto 53.5 % (45.5-73.1); Platelet Count Result 271 k/mm3 (150-375); Red Blood Count 3.63 M/mm3 (4.6-6.20); Red Cell Distribution Width 13.1 % (11.5-14.5); White Blood Count 6.1 K/mm3 (4.5-10.0)
[2022-08-19 08:28] LABS: Alanine Aminotransferase 28 U/L (6-50); Albumin Level 3.6 g/dL (3.5-5.1); Alkaline Phosphatase 54 U/L (38-126); Anion Gap 5 mmol/L (8-16); Aspartate Amino Transferase 20 U/L (17-59); Bilirubin,Total 0.4 mg/dL (0.2-1.3); Blood Urea Nitrogen 9 mg/dL (9-20); Calcium 8.5 mg/dL (8.4-10.2); Carbon Dioxide 30 mmol/L (22-30); Chloride 102 mmol/L (98-107); Estimated CRCL calculation 58 ml/min; Estimated Glomerular Filt Rate 53; Glucose 97 mg/dL (65-110); Potassium 3.1 mmol/L (3.4-5.0); Sodium 137 mmol/L (137-145)
--- NOTE | 2022-08-19 09:35 | WPDUROPN2 ---
Progress Note: A&P Assessment and Plan (1) Clot retention of urine: Code(s): R33.8 - Other retention of urine Status: Acute Assessment and Plan: Possible Clot Evacuation in the OR today with Dr. Escobar. Obtain Consent. Pending CT results. (2) Gross hematuria: Code(s): R31.0 - Gross hematuria Status: Acute Subjective Subjective Date/Time Seen: 08/19/22 09:35 Patient continues to clot off, Dr. Quintanilla was unable to pass a 3 way catheter initially. Manual irrigation has been unsuccessful. A repeat pelvic CT will be done this morning to evaluate further. Review of Systems Cardiovascular: Cardiovascular: Denies chest pain Respiratory: Respiratory: Reports no additional respiratory complaints Gastrointestinal: Gastrointestinal: Denies abdominal pain, Denies nausea and Denies vomiting Genitourinary: Genitourinary: Denies hematuria, Denies flank pain, Denies urinary frequency and Denies urinary urgency Exam Const: General: cooperative and comfortable Resp: Effort & Inspection: normal respiratory effort Cardio: Rate: regular rate GI: GI Palp: Yes Soft to palpation and No Tenderness to palpation present (GI) : General: No no CVA tenderness Extrem: Right lower extremity: no edema Left lower extremity: no edema Objective Data Vital Signs Vital Signs: Vital Signs - 24 hr 08/18/22 14:00 08/18/22 17:04 08/18/22 17:04 Temperature 97.8 F Pulse Rate 83 Respiratory Rate 18 Blood Pressure 164/78 H 152/28 H 169/77 H Pulse Oximetry 96 Oxygen Delivery 08/18/22 17:55 08/18/22 22:00 08/19/22 00:00 Temperature 98.2 F 99.0 F 97.8 F Pulse Rate 92 86 92 Respiratory Rate 20 22 H 20 Blood Pressure 175/87 H 166/78 H 152/78 H Pulse Oximetry 97 96 97 Oxygen Delivery 08/19/22 05:55 08/19/22 06:00 08/19/22 06:05 Temperature Pulse Rate 78 86 87 Respiratory Rate Blood Pressure 151/74 H 109/81 114/81 Pulse Oximetry Oxygen Delivery 08/19/22 07:50 Temperature Pulse Rate Respiratory Rate 20 Blood Pressure Pulse Oximetry 97 Oxygen Delivery Room Air Intake/Output Intake/Output: Intake & Output 08/16/22 08/17/22 08/18/22 08/19/22 23:59 23:59 23:59 23:59 Intake Total 1570 2530 1736 200 Output Total 8903 3333 2671 175 [facility] -1180 -195 -114 25 Meds/Results Medications: Active Medications Generic Name Dose Route Start Last Admin Trade Name Freq PRN Reason Stop Dose Admin Acetaminophen 650 mg 08/14/22 16:50 08/14/22 17:10 Acetaminophen 325 Mg Tablet PO 650 mg Q4H PRN Administration Mild Pain (1-3) or Fever Albuterol 1 - 2 puff 08/10/22 21:37 Albuterol Sulfate (*Sp) Aerosol 1 Puff INHALATION Q4-6H PRN shortness of breath or wheezing Amlodipine Besylate 10 mg 08/15/22 09:00 08/18/22 08:15 Amlodipine Besylate 5 Mg Tablet PO 10 mg QAM TEJAS Administration Ascorbic Acid 1,000 mg 08/11/22 09:00 08/18/22 08:16 Ascorbic Acid 500 Mg Tablet PO 1,000 mg DAILY TEJAS Administration Aspirin 81 mg 08/11/22 09:00 08/18/22 08:15 Aspirin 81 Mg Enteric Tablet PO 81 mg DAILY TEJAS Administration Docusate Sodium 100 mg 08/14/22 22:25 08/18/22 21:01 Docusate Sodium 100 Mg Capsule PO 100 mg Q12HR TEJAS Administration Enoxaparin Sodium 40 mg 08/11/22 09:00 08/18/22 08:28 Enoxaparin 40 Mg/0.4 Ml Syringe SUB-Q Not Given DAILY TEJAS Finasteride 5 mg 08/12/22 21:00 08/18/22 21:01 Finasteride 5 Mg Tablet PO 5 mg QHS TEJAS Administration Gabapentin 100 mg 08/11/22 21:00 08/18/22 21:01 Gabapentin 100 Mg Capsule PO 100 mg HS TEJAS Administration Hydralazine HCl 10 mg 08/18/22 00:11 08/18/22 00:52 Hydralazine Hcl 20 Mg/Ml Vial IV PUSH 10 mg Q6H PRN Administration High Blood Pressure, 190 or above. Lactulose 20 gm 08/15/22 09:00 08/18/22 08:15 Lactulose 20 Gm/30 Ml Udc PO 20 gm QAM TEJAS Administration Multivitamins Therape
[2022-08-19] MEDS: amLODIPine BESYLATE 5 MG TABLET 10 MG PO (09:45)
--- NOTE | 2022-08-19 13:12 | PC.NURSE ---
To OR via stretcher.
[2022-08-19] MEDS: LACTATED RINGERS 1,000 ML 30 ML IV CONT (13:25)
--- NOTE | 2022-08-19 13:32 | WPDANESEPPF ---
Anes - Initial Pre Proc Eval Procedure: Operation Date: 08/19/22 14:00 Proposed Procedures p Cystoscopy, Evacuation Bladder Clot - Frank Escobar MD Date/Time: 08/19/22 13:32 Surgeon: Pedro Doll MD Pre Op Diagnosis: Hypokalemia/Hypertensive Urgency/Generalized Weakn Patient Data Age: 77 Gender: M Height: 1.83 m Weight: 132.6 kg Last Vital Signs Temp 36.6 C 08/19/22 09:44 Pulse 71 08/19/22 09:44 Resp 20 08/19/22 09:44 BP 159/77 H 08/19/22 09:44 Pulse Ox 97 08/19/22 09:44 O2 Del Method Room Air 08/19/22 07:50 Allergies Allergy/AdvReac Type Severity Reaction Status Date / Time morphine AdvReac Severe Confusion/Severe Verified 08/10/22 16:49 agitation Home Medications Medication Instructions Recorded Confirmed Type aspirin 81 mg tablet,delayed 81 mg PO DAILY 08/17/19 08/10/22 History release ascorbic acid (vitamin C) 1,000 mg 1,000 mg PO DAILY 07/21/21 08/10/22 History tablet furosemide 20 mg tablet (Lasix) 20 mg PO DAILY 07/21/21 08/10/22 History multivitamin 1 tablet PO DAILY 07/21/21 08/10/22 History tamsulosin 0.4 mg capsule (Flomax) 0.4 mg PO DAILY 07/21/21 08/10/22 History albuterol sulfate 90 mcg/actuation 1 - 2 puff inhalation Q4-6H PRN 05/26/22 08/10/22 Rx aerosol inhaler shortness of breath or wheezing #8.5 grams codeine 10 mg-guaifenesin 100 mg/5 5 ml PO Q6H PRN cough #120 mL 07/26/22 08/10/22 Rx mL oral liquid fenofibrate 54 mg tablet 54 mg PO DAILY 08/10/22 08/10/22 History gabapentin 100 mg capsule 100 mg PO HS 08/10/22 08/10/22 History Laboratory Tests 08/18/22 08/19/22 08/19/22 17:05 07:26 07:26 WBC 6.1 K/mm3 K/mm3 (4.5-10.0) RBC 3.63 M/mm3 L M/mm3 (4.6-6.20) Hgb 11.9 g/dL L g/dL (14.0-18.0) Hct 34.8 % L % (42.0-52.0) MCV 95.9 fl fl (80-100) MCH 32.8 pg pg (26-34) MCHC 34.2 g/dl g/dl (32-36) RDW 13.1 % % (11.5-14.5) Plt Count 271 k/mm3 k/mm3 (150-375) MPV 10.0 fl fl (7.4-10.4) Immature Gran % (Auto) 0.3 % % (0-0.5) Neut % (Auto) 53.5 % % (45.5-73.1) Lymph % (Auto) 27.1 % % (18.3-44.2) Beadle % (Auto) 14.5 % H % (2.6-8.5) Eos % (Auto) 3.6 % % (0-4.4) Baso % (Auto) 1.0 % % (0.2-1.2) Lymph # (Auto) 1.64 K/mm3 K/mm3 (0.9-3.2) Beadle # (Auto) 0.9 K/mm3 H K/mm3 (0.1-0.6) Eos # (Auto) 0.2 K/mm3 K/mm3 (0-0.3) Baso # (Auto) 0.1 K/mm3 K/mm3 (0.0-0.1) Abs Immat Gran (auto) 0.02 K/mm3 K/mm3 (0.00-0.031) Absolute Neuts (auto) 3.2 K/mm3 K/mm3 (1.3-6.7) Absolute Nucleated RBC 0.0 K/mm3 K/mm3 (0.0-0.012) Nucleated RBC % 0.0 % % (0.0-0.2) Sodium 134 mmol/L L mmol/L 137 mmol/L mmol/L (137-145) (137-145) Potassium 3.1 mmol/L L mmol/L 3.1 mmol/L L mmol/L (3.4-5.0) (3.4-5.0) Chloride 98 mmol/L mmol/L 102 mmol/L mmol/L (98-107) (98-107) Carbon Dioxide 31 mmol/L H mmol/L 30 mmol/L mmol/L (22-30) (22-30) Anion Gap 5 mmol/L L mmol/L 5 mmol/L L mmol/L (8-16) (8-16) BUN 9 mg/dL mg/dL 9 mg/dL mg/dL (9-20) (9-20) Creatinine 1.20 mg/dL mg/dL 1.30 mg/dL mg/dL (0.7-1.3) (0.7-1.3) Estim Creat Clear Calc 63 ml/min ml/min 58 ml/min ml/min Estimated GFR 58 L 53 L (59 - ) (59 - ) Glucose 95 mg/dL mg/dL 97 mg/dL mg/dL (65-110) (65-110) Calcium 9.4 mg/dL mg/dL 8.5 mg/dL mg/dL (8.4-10.2) (8.4-10.2) Total Bilirubin 0.4 mg/dL mg/dL (0.2-1.3) AST 20 U/L U/L (17-59) ALT 28 U/L U/L (6-50) Alkaline Phosphatase 54 U/L U/L (38-126) Total Protein 6.0 g/dL L g/dL (6.3-8.2) Albumin 3.6 g/dL g/dL (3.5-5.1) Patient hx anesthesia problems: none Family hx anesthesia problems: none Results Review: All p
--- NOTE | 2022-08-19 13:44 | WPDHPUPDATE1 ---
History and Physical Update Update Date/Time: 08/19/22 13:44 History and Physical has been reviewed, including an updated exam of the patient. There are NO changes in the patient's condition. Risks, benefits, and alternatives have been discussed and questions answered. Patient agrees to proceed with procedure. Proceed with cysto with clot evacuation, fulguration
--- NOTE | 2022-08-19 13:49 | PCPTNOTE ---
The patient treatment was not able to be completed due to patient out of room for cystoscopy. Will plan to continue treatment per plan of care.
--- NOTE | 2022-08-19 14:20 | P.OP_ITS ---
Procedure Note - Detailed Date of Procedure 08/19/22 Pre-op Diagnosis Hematuria with possible clot retention Post-op Diagnosis Same Procedure Performed Cystoscopy, evacuation of small clot, fulguration of bladder neck, complex Gracia placement [address] Surgeon Frank Escobar MD Anesthesia General Description of Procedure Patient is taken to the operative suite correctly identified. Once anesthesia was obtained he was placed in dorsal lithotomy position and prepped and draped usual sterile fashion. The prior Gracia was removed. Twenty-two Indonesian scope was inserted to the bladder direct vision. There were no urethral strictures. Patient has enlarged prostate with a very high floor in elevated bladder neck. Upon entering the bladder there was some small little clots which were retrieved simply by flushing the bladder. There were no other tumors noted at this time. It was noted that there was some oozing at the bladder neck. Using a Bugbee electrode we fulgurated this area. 2% viscous lidocaine was then inserted. It was presumed that the other catheter was not in his bladder but probably more in the prostatic fossa. None the less we had to use a catheter guide to insert the 20 Indonesian Gracia into the bladder. 15 cc of sterile water were inserted into the balloon. This was connected to continuous bladder irrigation. The catheter did irrigate easily as I personally irrigated using a catheter tip syringe. Patient is taken recovery stable condition. Hopefully be able to remove the catheter in a day or so. Estimated Blood Loss 0 Urine Output 350 Drains Yes Packing No Pathology None sent Complications No immediate complications Condition Stable Disposition PACU
[2022-08-19] MEDS: LIDOCAINE HCL 2% GEL UROJET 10 ML PKG MUCOUS MEM (14:24)
[2022-08-19] MEDS: ceFAZolin 3 GM/D5W 100 ML 100 ML IVPB (14:38)
--- NOTE | 2022-08-19 15:40 | PC.NURSE ---
Return from OR via stretcher.
--- NOTE | 2022-08-19 16:54 | PCOTNOTE ---
OT treatment frequency decreased to 2-3x/ week as pt. is nearing return to baseline function, independence, in ADLs and functional transfers.
[2022-08-19] MEDS: POTASSIUM CHLORIDE 20 MEQ TABLET 40 MEQ PO (17:26)
[2022-08-19 17:42] LABS: Anion Gap 7 mmol/L (8-16); Blood Urea Nitrogen 9 mg/dL (9-20); Calcium 8.7 mg/dL (8.4-10.2); Carbon Dioxide 31 mmol/L (22-30); Chloride 100 mmol/L (98-107); Estimated CRCL calculation 63 ml/min; Estimated Glomerular Filt Rate 58; Glucose 102 mg/dL (65-110); Potassium 3.4 mmol/L (3.4-5.0); Sodium 138 mmol/L (137-145)
--- NOTE | 2022-08-19 18:10 | PM.IMPN ---
Progress Note: A&P Assessment and Plan (1) Fall from ground level: Code(s): W18.30XA - Fall on same level, unspecified, initial encounter Status: Acute Assessment and Plan: Patient presents to the ED after sustaining multiple falls. He does have bilateral lower extremity weakness. CT of the brain on admission shows old lacunar infarct in the right basal ganglial but no acute findings. Patient daughter is concerned about altered mental status today. Ct head unremarkable . Patient noted that he had generalized weakness not just localized to this LEs, but noted marked improvement in energy and he is able to walk around. tie up worker evaluation for home health aide placement. Physical therapy and occupational therapy for discharge planning. 09/19/2021 interval history: 77-year-old male was also found to urinary retention and hematuria, was seen by Urology suspect patient may have a clot urinary tract and may need evacuation, patient was taken to the OR had a cystoscopy and evacuation of small clot, fulguration of bladder neck, complex Gracia placement [address], patient remains clinically stable had no new complaints will continue to monitor. (2) Generalized weakness: Code(s): R53.1 - Weakness Status: Acute Assessment and Plan: Generalized weakness and deconditioning could be related to SAHARA and dehydration. tie up worker evaluation for home health aide. Consider also related to residual condition after his influenza infection and underlying hx of CVA. TSH, B12 and folate are normal. Consider poorly treated sleep apnea but tolerating BiPAP. Continue therapy. improving (3) Elevated blood pressure reading: Code(s): R03.0 - Elevated blood-pressure reading, without diagnosis of hypertension Status: Acute Assessment and Plan: Patient has had elevated blood pressure at times over the past few years. He Was previously not on antihypertensive medications. Norvas added. SBP peaked at 181/92 yesterday to improve to 136/66 . Blood pressure moderately controlled at 146/77 today. Further titration can be perform as an outpatient. Continue to monitor. (4) Acute kidney injury: Code(s): N17.9 - Acute kidney failure, unspecified Status: Acute Assessment and Plan: Patient with a baseline creatinine 1.1-1.3. Creatinine on admission here was 1.6 felt related to dehydration. Dehydration from poor oral intake from his recent infection plus his continued use of furosemide. Renal US showing left nephrectomy (removed due to cancer) o/w normal. Due to history of kidney cancer and hematuria we have consulted the Urology Service. Creatinine better and back to baseline.at 1.3. (5) Hypokalemia: Code(s): E87.6 - Hypokalemia Status: Acute Assessment and Plan: replaced, monitor (6) Hypercalcemia: Code(s): E83.52 - Hypercalcemia Status: Acute Assessment and Plan: Calcium was mildly elevated prior related dehydration. With IV fluids,calcium has normalized. Resolved (7) Dehydration: Code(s): E86.0 - Dehydration Status: Acute Assessment and Plan: Oral intake is adequate. Patient is eating and drinking. (8) Obstructive sleep apnea on CPAP: Code(s): G47.33 - Obstructive sleep apnea (adult) (pediatric); Z99.89 - Dependence on other enabling machines and devices Status: Acute Assessment and Plan: Continue auto BiPAP here. (9) Clot retention of urine: Code(s): R33.8 - Other retention of urine Status: Acute Assessment and Plan: Continue Gracia urology following (10) Gross hematuria: Code(s): R31.0 - Gross hematuria Status: Acute Assessment and Plan: still having gross hematuria, CT scan showed bladder diverticulum Urology following monitor h and H, and transfuse if Hb is <7 Subjective Date/time seen: 08/19/22 18:10 Patient p
[2022-08-19] MEDS: FINASTERIDE 5 MG TABLET PO (20:26)
[2022-08-19] MEDS: DOCUSATE SODIUM 100 MG CAPSULE PO (20:26)
[2022-08-19] MEDS: GABAPENTIN 100 MG CAPSULE PO (20:32)
[2022-08-19] MEDS: ACETAMINOPHEN 325 MG TABLET 650 MG PO (21:32)
[2022-08-20 06:31] VITALS: BP 161/76; PULSE 74; RESP 18; TEMP 36.4; O2SAT 93
--- NOTE | 2022-08-20 08:07 | WPDUROPN2 ---
Progress Note: A&P Assessment and Plan (1) Gross hematuria: Code(s): R31.0 - Gross hematuria Status: Acute Assessment and Plan: Resolving. Urine clear at this time. Will do a voiding trial with checking a postvoid residual Subjective Subjective Date/Time Seen: 08/20/22 08:07 Principal diagnosis: Hematuria Interval history: Jason is status post cysto with fulguration of bladder neck. Urine appears fairly clear at this time. Will plan on voiding trial Review of Systems Review of Systems: All systems reviewed & are unremarkable except as noted in HPI and below Exam Const: General: cooperative and comfortable Urinary Catheter: Urinary Catheter: patent and draining and urine clear Objective Data Vital Signs Vital Signs: Vital Signs - 24 hr 08/19/22 09:44 08/19/22 13:24 08/19/22 14:27 Temperature 36.6 C 36.8 C 36.9 C Pulse Rate 71 74 65 Respiratory Rate 20 20 10 L Blood Pressure 159/77 H 155/54 H 143/78 H Pulse Oximetry 97 98 100 Oxygen Delivery Room Air Simple Face Mask Oxygen Flow Rate 8 08/19/22 14:40 08/19/22 14:55 08/19/22 15:10 Temperature Pulse Rate 64 66 67 Respiratory Rate 12 14 16 Blood Pressure 141/81 H 143/82 H 156/85 H Pulse Oximetry 100 95 Oxygen Delivery Simple Face Mask Room Air Room Air Oxygen Flow Rate 8 08/19/22 15:25 08/19/22 15:40 08/19/22 20:00 Temperature Pulse Rate 65 65 Respiratory Rate 14 14 14 Blood Pressure 154/80 H Pulse Oximetry 97 97 97 Oxygen Delivery Room Air Room Air Room Air Oxygen Flow Rate 08/19/22 20:00 08/20/22 06:31 Temperature 36.8 C 36.4 C L Pulse Rate 91 74 Respiratory Rate 14 18 Blood Pressure 123/66 161/76 H Pulse Oximetry 93 93 Oxygen Delivery Oxygen Flow Rate Intake/Output Intake/Output: Intake & Output 08/17/22 08/18/22 08/19/22 08/20/22 23:59 23:59 23:59 23:59 Intake Total 2530 1736 1240 500 Output Total 2529 5390 7117 450 Aotpdcm -148 -604 -5350 50 Meds/Results Medications: Active Medications Generic Name Dose Route Start Last Admin Trade Name Freq PRN Reason Stop Dose Admin Acetaminophen 650 mg 08/14/22 16:50 08/19/22 21:32 Acetaminophen 325 Mg Tablet PO 650 mg Q4H PRN Administration Mild Pain (1-3) or Fever Albuterol 1 - 2 puff 08/10/22 21:37 Albuterol Sulfate (*Sp) Aerosol 1 Puff INHALATION Q4-6H PRN shortness of breath or wheezing Amlodipine Besylate 10 mg 08/15/22 09:00 08/19/22 09:45 Amlodipine Besylate 5 Mg Tablet PO 10 mg QAM TEJAS Administration Ascorbic Acid 1,000 mg 08/11/22 09:00 08/19/22 09:34 Ascorbic Acid 500 Mg Tablet PO Not Given DAILY [facility] Aspirin 81 mg 08/11/22 09:00 08/19/22 09:35 Aspirin 81 Mg Enteric Tablet PO Not Given DAILY [facility] Docusate Sodium 100 mg 08/14/22 22:25 08/19/22 20:26 Docusate Sodium 100 Mg Capsule PO 100 mg Q12HR TEJAS Administration Enoxaparin Sodium 40 mg 08/11/22 09:00 08/19/22 09:35 Enoxaparin 40 Mg/0.4 Ml Syringe SUB-Q Not Given DAILY [facility] Fentanyl Citrate 25 mcg 08/19/22 13:29 Fentanyl Citrate Inj (*Crx) 100 Mcg/2 Ml Vial IV PUSH Q2M PRN Pain Finasteride 5 mg 08/12/22 21:00 08/19/22 20:26 Finasteride 5 Mg Tablet PO 5 mg QHS TEJAS Administration Gabapentin 100 mg 08/11/22 21:00 08/19/22 20:32 Gabapentin 100 Mg Capsule PO 100 mg HS [facility] Administration Hydralazine HCl 10 mg 08/18/22 00:11 08/18/22 00:52 Hydralazine Hcl 20 Mg/Ml Vial IV PUSH 10 mg Q6H PRN Administration High Blood Pressure, 190 or above. Lactated Ringer's 1,000 mls @ 30 mls/hr 08/19/22 13:30 08/19/22 15:29 Lr - Lactated Ringers Iv IV CONT Infused .Q24H TEJAS Infusion Lactated Ringer's 1,000 mls @ 30 mls/hr 08/19/22 13:30 08/19/22 17:24 Lr - Lactated Ringers Iv IV CONT Not Given .Q24H TEJAS Lactulose 20 gm 08/15/22 09:00 08/19/22 09:35 Lactulose 20 Gm/30 Ml Udc PO Not Given QAM TEJAS Multivit
--- NOTE | 2022-08-20 09:07 | WPDUROPN2 ---
Progress Note: A&P Assessment and Plan (1) Gross hematuria: Code(s): R31.0 - Gross hematuria Status: Acute (2) Clot retention of urine: Code(s): R33.8 - Other retention of urine Status: Acute Assessment and Plan: Patient is feeling much better and his urine remained clear overnight. His Gracia catheter was suggest been removed for a voiding trial. I anticipate he will do well and can be discharged with follow-up in 4-8 weeks in our office Subjective Subjective Date/Time Seen: 08/20/22 09:07 Catheter just removed for voiding trial. Comfortable, no complaints Review of Systems Cardiovascular: Cardiovascular: Denies chest pain, Denies lightheadedness, Denies palpitations and Denies dyspnea Respiratory: Respiratory: Denies dyspnea Gastrointestinal: Gastrointestinal: Denies diarrhea, Denies nausea and Denies vomiting Genitourinary: Genitourinary: Denies hematuria and Denies dysuria Endocrine: Endocrine: Denies palpitations Exam Const: General: no acute distress Resp: Effort & Inspection: normal respiratory effort GI: Inspection: non-distended GI Palp: No abdominal tenderness and No Guarding due to palpation present (GI) Auscultation: normal bowel sounds Objective Data Vital Signs Vital Signs: Vital Signs - 24 hr 08/19/22 09:44 08/19/22 13:24 08/19/22 14:27 Temperature 98 F 98.3 F 98.5 F Pulse Rate 71 74 65 Respiratory Rate 20 20 10 L Blood Pressure 159/77 H 155/54 H 143/78 H Pulse Oximetry 97 98 100 Oxygen Delivery Room Air Simple Face Mask Oxygen Flow Rate 8 08/19/22 14:40 08/19/22 14:55 08/19/22 15:10 Temperature Pulse Rate 64 66 67 Respiratory Rate 12 14 16 Blood Pressure 141/81 H 143/82 H 156/85 H Pulse Oximetry 100 95 Oxygen Delivery Simple Face Mask Room Air Room Air Oxygen Flow Rate 8 08/19/22 15:25 08/19/22 15:40 08/19/22 20:00 Temperature Pulse Rate 65 65 Respiratory Rate 14 14 14 Blood Pressure 154/80 H Pulse Oximetry 97 97 97 Oxygen Delivery Room Air Room Air Room Air Oxygen Flow Rate 08/19/22 20:00 08/20/22 06:31 Temperature 98.3 F 97.5 F L Pulse Rate 91 74 Respiratory Rate 14 18 Blood Pressure 123/66 161/76 H Pulse Oximetry 93 93 Oxygen Delivery Oxygen Flow Rate Intake/Output Intake/Output: Intake & Output 08/17/22 08/18/22 08/19/22 08/20/22 23:59 23:59 23:59 23:59 Intake Total 2530 1736 1240 500 Output Total 1676 9971 3770 450 [place] -796 -114 -2485 50 Meds/Results Medications: Active Medications Generic Name Dose Route Start Last Admin Trade Name Freq PRN Reason Stop Dose Admin Acetaminophen 650 mg 08/14/22 16:50 08/19/22 21:32 Acetaminophen 325 Mg Tablet PO 650 mg Q4H PRN Administration Mild Pain (1-3) or Fever Albuterol 1 - 2 puff 08/10/22 21:37 Albuterol Sulfate (*Sp) Aerosol 1 Puff INHALATION Q4-6H PRN shortness of breath or wheezing Amlodipine Besylate 10 mg 08/15/22 09:00 08/19/22 09:45 Amlodipine Besylate 5 Mg Tablet PO 10 mg QAM TEJAS Administration Ascorbic Acid 1,000 mg 08/11/22 09:00 08/19/22 09:34 Ascorbic Acid 500 Mg Tablet PO Not Given DAILY [facility] Aspirin 81 mg 08/11/22 09:00 08/19/22 09:35 Aspirin 81 Mg Enteric Tablet PO Not Given DAILY [facility] Docusate Sodium 100 mg 08/14/22 22:25 08/19/22 20:26 Docusate Sodium 100 Mg Capsule PO 100 mg Q12HR TEJAS Administration Enoxaparin Sodium 40 mg 08/11/22 09:00 08/19/22 09:35 Enoxaparin 40 Mg/0.4 Ml Syringe SUB-Q Not Given DAILY [facility] Fentanyl Citrate 25 mcg 08/19/22 13:29 Fentanyl Citrate Inj (*Crx) 100 Mcg/2 Ml Vial IV PUSH Q2M PRN Pain Finasteride 5 mg 08/12/22 21:00 08/19/22 20:26 Finasteride 5 Mg Tablet PO 5 mg QHS TEJAS Administration Gabapentin 100 mg 08/11/22 21:00 08/19/22 20:32 Gabapentin 100 Mg Capsule PO 100 mg HS TEJAS Administration Hydralazine HCl 10 mg 08/18/22 00:11 08/18/22 00:52
[2022-08-20] MEDS: ASCORBIC ACID 500 MG TABLET 1000 MG PO (09:09)
[2022-08-20] MEDS: LACTULOSE 20 GM/30 ML UDC PO (09:09)
[2022-08-20] MEDS: ENOXAPARIN 40 MG/0.4 ML SYRINGE SUB-Q (09:09)
[2022-08-20] MEDS: DOCUSATE SODIUM 100 MG CAPSULE PO (09:10)
[2022-08-20] MEDS: amLODIPine BESYLATE 5 MG TABLET 10 MG PO (09:10)
[2022-08-20] MEDS: TAMSULOSIN HCL 0.4 MG CAPSULE PO (09:10)
[2022-08-20] MEDS: MULTIVITAMINS THERAPEUTIC TAB (*BKC) 1 TABLET PO (09:10)
[2022-08-20] MEDS: ASPIRIN 81 MG ENTERIC TABLET PO (09:10)
--- NOTE | 2022-08-20 09:53 | WPDANESPN ---
Anes - Prog Note Post-Op Date/Time: 08/20/22 09:53 Vital Signs: Last Vital Signs Temp 36.4 C L 08/20/22 06:31 Pulse 74 08/20/22 06:31 Resp 18 08/20/22 06:31 BP 161/76 H 08/20/22 06:31 Pulse Ox 93 08/20/22 06:31 O2 Del Method Room Air 08/19/22 20:00 O2 Flow Rate 8 08/19/22 14:40 Pain Score (VAS): 0 I/O: Intake & Output 08/19/22 08/20/22 08/20/22 23:59 07:59 15:59 Intake Total 740 500 Output Total 800 450 Balance -60 50 Laboratory Tests 08/19/22 07:26 08/19/22 17:26 08/19/22 17:26 Sodium 138 Potassium 3.4 Chloride 100 Carbon Dioxide 31 H Anion Gap 7 L BUN 9 Creatinine 1.20 Estim Creat Clear Calc 63 Estimated GFR 58 L Glucose 102 Calcium 8.7 Patient Feedback: Patient satisfied with anesthetic care.
--- NOTE | 2022-08-20 09:55 | PCOTNOTE ---
Attempted to see patient this am, however patient declined. Pt reported hoping to discharge today. Pt has no concerns as pertains to OT prior to going home. No, I've appreciated all you've done for me here. Thank you.
--- NOTE | 2022-08-20 10:09 | PM.DS ---
DS: Admitting Diagnosis Discharge Date 08/20/2022 Admitting Diagnosis Ground level fall. DS: Discharge Diagnosis Discharge Diagnosis (1) Fall from ground level: Code(s): W18.30XA - Fall on same level, unspecified, initial encounter Status: Acute Assessment and Plan: Patient presents to the ED after sustaining multiple falls. He does have bilateral lower extremity weakness. CT of the brain on admission shows old lacunar infarct in the right basal ganglial but no acute findings. Patient daughter is concerned about altered mental status today. Ct head unremarkable . Patient noted that he had generalized weakness not just localized to this LEs, but noted marked improvement in energy and he is able to walk around. soda worker evaluation for home health aide placement. Physical therapy and occupational therapy for discharge planning. 09/19/2021 interval history: 77-year-old male was also found to urinary retention and hematuria, was seen by Urology suspect patient may have a clot urinary tract and may need evacuation, patient was taken to the OR had a cystoscopy and evacuation of small clot, fulguration of bladder neck, complex Gracia placement [address], patient remains clinically stable had no new complaints will continue to monitor. (2) Generalized weakness: Code(s): R53.1 - Weakness Status: Acute Assessment and Plan: Generalized weakness and deconditioning could be related to SAHARA and dehydration. soda worker evaluation for home health aide. Consider also related to residual condition after his influenza infection and underlying hx of CVA. TSH, B12 and folate are normal. Consider poorly treated sleep apnea but tolerating BiPAP. Continue therapy. improving (3) Elevated blood pressure reading: Code(s): R03.0 - Elevated blood-pressure reading, without diagnosis of hypertension Status: Acute Assessment and Plan: Patient has had elevated blood pressure at times over the past few years. He Was previously not on antihypertensive medications. Norvasc added. SBP peaked at 181/92 yesterday to improve to 136/66 . Blood pressure moderately controlled at 146/77 today. Further titration can be perform as an outpatient. Continue to monitor. (4) Acute kidney injury: Code(s): N17.9 - Acute kidney failure, unspecified Status: Acute Assessment and Plan: Patient with a baseline creatinine 1.1-1.3. Creatinine on admission here was 1.6 felt related to dehydration. Dehydration from poor oral intake from his recent infection plus his continued use of furosemide. Renal US showing left nephrectomy (removed due to cancer) o/w normal. Due to history of kidney cancer and hematuria we have consulted the Urology Service. Creatinine better and back to baseline.at 1.3. (5) Hypokalemia: Code(s): E87.6 - Hypokalemia Status: Acute Assessment and Plan: replaced, monitor (6) Hypercalcemia: Code(s): E83.52 - Hypercalcemia Status: Acute Assessment and Plan: Calcium was mildly elevated prior related dehydration. With IV fluids,calcium has normalized. Resolved (7) Dehydration: Code(s): E86.0 - Dehydration Status: Acute Assessment and Plan: Oral intake is adequate. Patient is eating and drinking. (8) Obstructive sleep apnea on CPAP: Code(s): G47.33 - Obstructive sleep apnea (adult) (pediatric); Z99.89 - Dependence on other enabling machines and devices Status: Acute Assessment and Plan: Continue auto BiPAP here. (9) Clot retention of urine: Code(s): R33.8 - Other retention of urine Status: Acute Assessment and Plan: Continue Gracia urology following (10) Gross hematuria: Code(s): R31.0 - Gross hematuria Status: Acute Assessment and Plan: still having gross hematuria, CT scan showed bladder diverticulum Urology following
[2022-08-20 11:56] LABS: Glucose Point of Care 109 mg/dl (65-105)
--- NOTE | 2022-08-20 12:20 | PC.NURSE ---
pt's CBI/3-way angeles was removed around 0700. Pt still has not urinated as of 1215. I bladder scanned pt which showed pt had approximately 260mL in the bladder. Pt stated he has not had the urge to urinate but will attempt to do so at this time.
--- NOTE | 2022-08-20 13:02 | PC.NURSE ---
As of 1299, pt still has not voided but bladder only contains about 260mL. I contacted Dr. Webb who stated that he is not concerned as it could take several more hours for pt to be full enough to prompt him to void. As pt is not uncomfortable, Dr. Webb stated it is ok to discharge pt at this time.
== END 2022-08-20 14:05 | disposition home health service (06) | DRG 663 ==
LOC: ANHED 12:06 → ANH3MEDSUR 15:13
PROVIDERS: Internal Medicine; Physician Assistant; Urology; Admitting Provider Internal Medicine; Emergency Provider Emergency Medicine; PCP Family Medicine; Visit Provider Family Medicine
PROC: 0TCB8ZZ Extirpation of Matter from Bladder, Via Natural or Artificial Opening Endoscopic (ICD-10-PCS; CPT 52001; principal; 2022-08-19 14:00)
DX: T83.83XA Hemorrhage due to genitourinary prosthetic devices, implants and grafts, initial encounter (principal); N17.9 Acute kidney failure, unspecified; R31.0 Gross hematuria; R33.8 Other retention of urine; I16.0 Hypertensive urgency; E86.0 Dehydration; E87.6 Hypokalemia; Z20.822 Contact with and (suspected) exposure to COVID-19; N40.0 Benign prostatic hyperplasia without lower urinary tract symptoms; W18.30XA Fall on same level, unspecified, initial encounter; E83.52 Hypercalcemia; G47.33 Obstructive sleep apnea (adult) (pediatric); J44.9 Chronic obstructive pulmonary disease, unspecified; Z96.643 Presence of artificial hip joint, bilateral; Z87.891 Personal history of nicotine dependence; Z86.718 Personal history of other venous thrombosis and embolism; Z90.49 Acquired absence of other specified parts of digestive tract; Z90.5 Acquired absence of kidney; Z86.73 Personal history of transient ischemic attack (TIA), and cerebral infarction without residual deficits
CPT/HCPCS: 36415; 70450; 71046; 72131; 72192; 73502; 73564; 74178; 76775; 80048; 80053; 80069; 81001; 81003; 82550; 82607; 82746; 82948; 83735; 84132; 84443; 85025; 85027; 85380; 85610; 85730; 87086; 87088; 87636; 93005; 93970; 94003; 96361; 96365; 96366; 96367; 96368; 96372; 96375; 96376; 97110; 97116; 97161; 97165; 97530; 97535; 99285; A9270; C1757; C1769; G0378; J0131; J0360; J0690; J1170; J1650; J3010; J3475; J3480; J7030; J7040; J7120; Q9967

== ENCOUNTER 2022-10-09 08:57 | Outpatient (CLI) | payer MEDICARE, OTHER, SELFPAY ==
[2022-10-09 09:33] LABS: Hematocrit 38.5 % (42.0-52.0); Hemoglobin 13.1 g/dL (14.0-18.0); Mean Corpuscular Hemoglobin 31.7 pg (26-34); Mean Corpuscular Volume 93.2 fl (80-100); Mean Platelet Volume 9.7 fl (7.4-10.4); Platelet Count Result 313 k/mm3 (150-375); Red Blood Count 4.13 M/mm3 (4.6-6.20); Red Cell Distribution Width 13.2 % (11.5-14.5)
[2022-10-09 09:45] LABS: Alanine Aminotransferase 19 U/L (6-50); Albumin Level 4.1 g/dL (3.5-5.1); Alkaline Phosphatase 59 U/L (38-126); Anion Gap 5 mmol/L (8-16); Aspartate Amino Transferase 21 U/L (17-59); Bilirubin,Total 0.4 mg/dL (0.2-1.3); Blood Urea Nitrogen 13 mg/dL (9-20); Calcium 9.3 mg/dL (8.4-10.2); Carbon Dioxide 34 mmol/L (22-30); Chloride 98 mmol/L (98-107); Cholesterol 168 mg/dL (0-200); Estimated Glomerular Filt Rate 37; Glucose 96 mg/dL (65-110); HDL Direct 24 mg/dL; Sodium 137 mmol/L (137-145); Triglycerides 202 mg/dL (<150)
[2022-10-09 09:56] LABS: LDL Cholesterol Direct 95 mg/dL
[2022-10-09 10:18] LABS: Hemoglobin A1C 5.3 % (<5.7)
[2022-10-09 13:23] LABS: Appearance Urine Clear (Clear); Bilirubin Urine Negative (Negative); Blood Urine Negative (Negative); Color Urine Yellow (Yellow); Glucose Urine UA Negative (Negative); Ketones Urine Negative (Negative); Leukocyte Esterase Ur Negative LEU/UL (NEGATIVE); Nitrate Urine Negative (Negative); Protein Urine Trace mg/dL (Negative); Urobilinogen Urine 0.2 mg/dL (<2.0)
[2022-10-09 13:28] LABS: Add Urine Microscopic? YES; Mucus Urine Rare /lpf; RBC Urine 0-2 /hpf (0-2); Squamous Epithelial Cell Urine Rare /hpf (Few)
== END 2022-10-09 08:58 | disposition home or self-care (01) ==
LOC: ANHLAB 09:00
PROVIDERS: PCP Family Medicine; Visit Provider Family Medicine
DX: R60.0 Localized edema (principal); E66.9 Obesity, unspecified; R73.01 Impaired fasting glucose; R53.83 Other fatigue; I10 Essential (primary) hypertension; E78.5 Hyperlipidemia, unspecified; M25.562 Pain in left knee
CPT/HCPCS: 36415; 80053; 80061; 81001; 83036; 84443; 85027

== ENCOUNTER 2022-10-15 10:12 | Outpatient (CLI) | payer MEDICARE, OTHER, SELFPAY ==
[2022-10-15 10:28] LABS: Appearance Urine Clear (Clear); Bilirubin Urine Negative (Negative); Blood Urine Trace-intact (Negative); Color Urine Yellow (Yellow); Glucose Urine UA Negative (Negative); Ketones Urine Negative (Negative); Leukocyte Esterase Ur 2+ LEU/UL (NEGATIVE); Nitrate Urine Negative (Negative); Protein Urine Negative (Negative); Specific Grav Ur 1.015 (1.001-1.035); Urobilinogen Urine 0.2 mg/dL (<2.0)
[2022-10-15 10:31] LABS: Squamous Epithelial Cell Urine Rare /hpf (Few); Transitional Epi Cells Urine Occasional /hpf (None Seen); WBC Urine 51-75 /hpf (0-3)
[2022-10-15 10:33] LABS: Add Urine Microscopic? YES
== END 2022-10-15 10:13 | disposition home or self-care (01) ==
PROVIDERS: PCP Family Medicine; Visit Provider Physician Assistant
DX: N39.0 Urinary tract infection, site not specified (principal); R53.83 Other fatigue
CPT/HCPCS: 81001; 87086; 87088

== ENCOUNTER 2022-11-03 15:46 | Outpatient (CLI) | payer MEDICARE, OTHER, SELFPAY ==
[2022-11-03 16:36] LABS: Anion Gap 5 mmol/L (8-16); Blood Urea Nitrogen 18 mg/dL (9-20); Calcium 9.1 mg/dL (8.4-10.2); Carbon Dioxide 31 mmol/L (22-30); Chloride 104 mmol/L (98-107); Estimated Glomerular Filt Rate 39; Glucose 109 mg/dL (65-110); Potassium 4.4 mmol/L (3.4-5.0); Sodium 140 mmol/L (137-145)
== END 2022-11-03 15:47 | disposition home or self-care (01) ==
PROVIDERS: PCP Family Medicine; Visit Provider Physician Assistant
DX: N17.9 Acute kidney failure, unspecified (principal); E87.6 Hypokalemia
CPT/HCPCS: 36415; 80048

== ENCOUNTER 2022-11-10 10:34 | Outpatient (CLI) | payer MEDICARE, OTHER, SELFPAY ==
--- NOTE | ~2022-11-10 | US_ITS ---
Renal-Bladder ultrasound Clinical History: Acute renal sufficiency, prior left nephrectomy Technique: Real-time sonographic imaging of the kidneys and urinary bladder was performed. Findings: The right kidney measures 14.1 cm in length. Left kidney is absent, compatible prior left n ephrectomy. No right hydronephrosis or right renal stone. Renal cortical echogenicity is within breana l limits. Right renal cysts noted. The urinary bladder is moderately distended at the time of this exam. No intraluminal echoes are iden tified. No abnormal wall thickening is seen. Impression: Status post left nephrectomy. Right renal cysts. Reviewed, dictated and finalized at location . Impression: Status post left nephrectomy. Right renal cysts.
== END 2022-11-10 10:35 | disposition home or self-care (01) ==
PROVIDERS: PCP Family Medicine; Visit Provider Physician Assistant
DX: N40.0 Benign prostatic hyperplasia without lower urinary tract symptoms (principal); N17.9 Acute kidney failure, unspecified; Z90.5 Acquired absence of kidney; N28.1 Cyst of kidney, acquired
CPT/HCPCS: 76775

== ENCOUNTER 2022-11-13 07:20 | Inpatient (IN) | payer MEDICARE, OTHER, SELFPAY ==
[2022-11-13] VITALS (33 sets, daily range): BP systolic 123–155; BP diastolic 60–92; PULSE 51–73; RESP 13–20; TEMP 36.8–36.9; O2SAT 93–100; BMI 40.5
--- NOTE | ~2022-11-13 | XR_ITS ---
EXAMINATION: XR pelvis 1-2V DATE: 11/13/2022 07:55 INDICATION: Fall. Weakness. TECHNIQUE: An anteroposterior view of the pelvis was obtained. COMPARISON: Pelvis radiograph 08/10/2022 FINDINGS: There is lumbar dextrocurvature and severe spondylosis. No fracture. Partially visualized a re bilateral total hip arthroplasties in near-anatomic alignment without periprosthetic lucency to wang ggest loosening or infection. Surgical clips overlie left abdomen. IMPRESSION: 1. Bilateral total hip arthroplasties in near-anatomic alignment. Reviewed, dictated and finalized at location A.
--- NOTE | ~2022-11-13 | CT_ITS ---
EXAMINATION: CT abdomen pelvis w con DATE: 11/13/2022 13:29 INDICATION: Abdominal pain. TECHNIQUE: Computed tomography (CT) of the abdomen and pelvis was performed with 100 mL Omnipaque 350 intravenous contrast. Automated exposure control and iterative reconstruction technique were employe d. The dose-length product was 1521.76 mGy-cm. COMPARISON: CT abdomen and pelvis 08/17/2022, 03/17/2020 FINDINGS: The visualized portions of the lung bases demonstrate mild atelectasis. No pleural effusion . The heart size is normal. There are coronary artery calcifications. No pericardial effusion. There is 11 mm cyst in the liver. The gallbladder, spleen, pancreas, and right adrenal gland are normal. Th ere is a chronic 10 mm mass in left adrenal gland, likely an adenoma. There are cysts in right kidney measuring up to 4.3 cm . There are changes of left nephrectomy. The bladder is distended. The prosta te is moderately enlarged. There is an anastomosis in the left colon. The appendix is not visualized. There are no pathologically enlarged lymph nodes. There is no free intraperitoneal fluid. There is c alcified atherosclerosis of the aorta and many of the other arteries. There are bilateral total hip a rthroplasties. Epidural electrodes are noted. There is severe lumbar spondylosis. IMPRESSION: 1. Distended bladder. Reviewed, dictated and finalized at location A. IMPRESSION: 1. Distended bladder.
--- NOTE | ~2022-11-13 | CT_ITS ---
EXAMINATION: CT brain wo con DATE: 11/13/2022 08:03 INDICATION: Fall. Weakness. TECHNIQUE: Computed tomography (CT) of the head was performed without intravenous contrast. The mA wa s adjusted according to patient size. Iterative reconstruction technique was employed. The dose-lengt h product was 756.67 mGy-cm. COMPARISON: Head CT 08/16/2022 FINDINGS: There are scattered areas of low attenuation in the cerebral white matter. There is an old lacunar infarct in the right basal ganglia. There is no intracranial hemorrhage, acute infarction, or abnormal intracranial mass lesion. The ventricles are normal in size. There are likely changes of oc ular lens replacement surgeries. There is mild mucosal thickening in the paranasal sinuses. There are small bilateral mastoid effusions. IMPRESSION: 1. Old lacunar infarct in the right basal ganglia. 2. Stable extensive nonspecific cerebral white matter disease, which likely represents chronic small vessel ischemic disease. Reviewed, dictated and finalized at location A. IMPRESSION: 1. Old lacunar infarct in the right basal ganglia. 2. Stable extensive nonspecific cerebral white matter disease, which likely rep resents chronic small vessel ischemic disease.
--- NOTE | ~2022-11-13 | XR_ITS ---
Clinical Indication: Cough, weakness AP and lateral views of the chest: Comparison: 08/10/2022 Findings: The lungs are clear, without evidence of focal consolidation or pleural effusion. Possible COPD. Cardiomediastinal silhouette is within normal limits. Stable intrathecal catheter. Impression: Clear lungs. Possible COPD. Reviewed, dictated and finalized at location . Impression: Clear lungs. Possible COPD.
--- NOTE | 2022-11-13 07:26 | ECG_ITS ---
Measurements Intervals [place] Rate: 63 P: -79 OR: 366 QRS: 40 QRSD: 137 T: 48 QT: 377 QTc: 387 Interpretive Statements SINUS RHYTHM WITH FIRST DEGREE AV BLOCK RIGHT BUNDLE BRANCH BLOCK BASELINE ARTIFACT- I, II, III, AVR, AVL, AVF, V2-V6 ABNORMAL ECG COMPARED TO ECG 08/10/2022 10:18:49 NO SIGNIFICANT CHANGES Electronically Signed On 11-13-2022 8:04:21 CDT by Luke Lees D.O.
--- NOTE | 2022-11-13 07:41 | ED.WEAKNESS ---
HPI - Weakness General Chief complaint: Weakness Stated complaint: hip pain, weakness Source: RN notes reviewed History of Present Illness HPI Narrative: Patient presents emergency department from home for weakness. Patient states that this morning he got up to use the restroom and was walking and his legs gave out from under him and he fell he states that he had no injury from the fall and denies striking his head or any loss of consciousness. States that he was too weak to get up at the time and did lay on the floor for approximately 2 hours. Patient states that he has a history of peripheral neuropathy in his legs and has been seen a specialist for this states that he does have numbness from his knees down chronically he states that he has been having upper respiratory infection symptoms for the past 2 days with a cough this been nonproductive and runny nose he gone to see his PCP yesterday he denies any fevers or chills chest pain shortness of breath abdominal pain nausea vomiting or diarrhea Related Data Home Medications Medication Instructions Recorded Confirmed aspirin 81 mg tablet,delayed 81 mg PO DAILY 08/17/19 11/12/22 release ascorbic acid (vitamin C) 1,000 mg 1,000 mg PO DAILY 07/21/21 11/12/22 tablet furosemide 20 mg tablet (Lasix) 20 mg PO DAILY 07/21/21 11/12/22 multivitamin 1 tablet PO DAILY 07/21/21 11/12/22 tamsulosin 0.4 mg capsule (Flomax) 0.4 mg PO DAILY 07/21/21 11/12/22 fenofibrate 54 mg tablet 54 mg PO DAILY 08/10/22 11/12/22 gabapentin 100 mg capsule 100 mg PO HS 08/10/22 11/12/22 Allergies Allergy/AdvReac Type Severity Reaction Status Date / Time morphine AdvReac Severe Confusion/Severe Verified 11/13/22 07:33 agitation Review of Systems Review of Systems: Gen.: Denies fevers or chills Eyes: Denies eye pain or visual change ENT: Reports rhinorrhea Respiratory: Denies shortness of breath reports cough CV: Denies chest pain or palpitations GI: Denies abdominal pain nausea, emesis or diarrhea denies burning, urgency, frequency or hematuria Musculoskeletal: Denies back pain or muscle pain Neuro: Reports weakness Skin: Denies rash Except as documented, all other systems reviewed and negative [facility] Past Medical History Medical History COPD (chronic obstructive pulmonary disease) Edema of left lower extremity Hearing loss History of tobacco abuse IFG (impaired fasting glucose) MELANIE on CPAP Right leg DVT Sacral nerve stimulator present Surgical History Surgical History H/O colectomy 28 H/O left nephrectomy History of appendectomy Hx of bilateral hip replacements Family History Family History Sibling Malignant neoplasm of prostate Family history of pancreatic cancer Family history of lung cancer Social History Social History Social History: Surrogate medical decision maker: Roxana Quintanilla, daughter. Code status: Full code. Smoking packs per day: 1 Smoking cigarettes per day: 20.0 Years smoked: 30 Smoking pack-years: 30.00 Smoking status: Former smoker Tobacco type: cigarettes Second hand tobacco smoke exposure: No Smoking end date: 08/30/03 Alcohol intake: current Drinks per week: 3 Alcohol use details: 5-6 beers on Wednesdays and sometimes on Fridays with friends at [facility] [place]. Substance use: never Substance use type: does not use Lack of Transportation: No Lack of Food: Never True Current Housing: I Have Housing Concerned About Future Housing: No Difficulty Paying Gas/Electric Bills: No Difficulty Paying for Meds: No Currently Unemployed: No Education: Master's Degree or Higher Difficulty w/ Childcare or Family Care: No Living arrangements: with family Additional living arrangements comments:
[2022-11-13] MEDS: SODIUM CHLORIDE 0.9% IV 1,000 ML 999 ML IV CONT (08:05)
[2022-11-13 08:08] LABS: INR 1.2; Prothrombin Time 14.3 Seconds (11.1-14.7)
[2022-11-13 08:11] LABS: Alanine Aminotransferase 24 U/L (6-50); Albumin Level 4.3 g/dL (3.5-5.1); Alkaline Phosphatase 56 U/L (38-126); Anion Gap 4 mmol/L (8-16); Aspartate Amino Transferase 30 U/L (17-59); Bilirubin,Total 0.7 mg/dL (0.2-1.3); Blood Urea Nitrogen 17 mg/dL (9-20); Calcium 8.9 mg/dL (8.4-10.2); Carbon Dioxide 31 mmol/L (22-30); Chloride 102 mmol/L (98-107); Estimated CRCL calculation 51 ml/min; Estimated Glomerular Filt Rate 45; Glucose 123 mg/dL (65-110); Potassium 4.1 mmol/L (3.4-5.0); Sodium 137 mmol/L (137-145)
[2022-11-13 08:12] LABS: Creatine Kinase 54 U/L (55-170); Magnesium 1.9 mg/dL (1.6-2.3)
[2022-11-13 08:35] LABS: Influenza A QL RT-PCR Negative (Negative); Influenza B QL RT-PCR Negative (Negative); RSV RNA, RT-PCR Negative (Negative); SARS-CoV-2 RNA PCR Negative
[2022-11-13 08:36] LABS: Basophils Absolute Auto 0.1 K/mm3 (0.0-0.1); Basophils Percent Auto 0.4 % (0.2-1.2); Eosinophils Percent Auto 0.1 % (0-4.4); Hematocrit 40.5 % (42.0-52.0); Hemoglobin 13.6 g/dL (14.0-18.0); Immature Granulocyte Percent A 0.6 % (0-0.5); Lymphocytes Absolute Auto 1.24 K/mm3 (0.9-3.2); Lymphocytes Percent Auto 6.9 % (18.3-44.2); Mean Corpuscular HGB Conc 33.6 g/dl (32-36); Mean Corpuscular Hemoglobin 32.2 pg (26-34); Mean Corpuscular Volume 95.7 fl (80-100); Monocytes Absolute Auto 1.1 K/mm3 (0.1-0.6); Monocytes Percent Auto 6.3 % (2.6-8.5); Neutrophils Absolute Auto 15.5 K/mm3 (1.3-6.7); Neutrophils Percent Auto 85.7 % (45.5-73.1); Platelet Count Result 307 k/mm3 (150-375); Red Blood Count 4.23 M/mm3 (4.6-6.20); Red Cell Distribution Width 13.2 % (11.5-14.5); White Blood Count 18.1 K/mm3 (4.5-10.0)
--- NOTE | 2022-11-13 10:34 | PC.NURSE ---
Attempted to straight cath pt. Unable to advance catheter. Attempted coude cath and was able to advance with no urine return. Bladder scan approx 50 ml seen.
[2022-11-13] MEDS: SODIUM CHLORIDE 0.9% IV 500 ML 999 ML IV CONT (10:44)
[2022-11-13 12:05] LABS: Bacteria Urine None Seen /hpf; Non Pathogenic Casts 0-2; RBC Urine >100 /hpf (0-2); Squamous Epithelial Cell Urine Occasional /hpf (Few); WBC Urine 21-50 /hpf
[2022-11-13 12:17] LABS: Appearance Urine Cloudy (Clear); Bilirubin Urine 1+ (Negative); Blood Urine 3+ (Negative); Color Urine Red (Yellow); Glucose Urine UA Negative (Negative); Ketones Urine Negative (Negative); Leukocyte Esterase Ur 1+ LEU/UL (Negative); Nitrate Urine Negative (Negative); Protein Urine 1+ mg/dL (Negative); Specific Grav Ur 1.009 (1.001-1.035); Urobilinogen Urine 0.2 mg/dL (<2.0); pH Urine 7.5 (5.0-9.0)
[2022-11-13 12:19] LABS: Add Urine Microscopic? YES
[2022-11-13 13:58] LABS: Lactic Acid Reflex 1.1 mmol/L (0.7-2.0)
--- NOTE | 2022-11-13 15:55 | PC.NURSE ---
Sleeping. Awaiting bed assignment.
--- NOTE | 2022-11-13 17:23 | PC.NURSE ---
heart healthy dinner tray ordered
--- NOTE | 2022-11-13 17:40 | PC.NURSE ---
Urology in room and placed angeles catheter. Tolerated well.
--- NOTE | 2022-11-13 17:45 | PM.IMHP ---
H&P: HPI History of Present Illness Date/Time: 11/13/22 17:45 Chief Complaint: Weakness. Narrative: This is a very pleasant a 77-year-old male with COPD, sleep apnea, and BPH presented to the emergency department from home for evaluation of weakness. Patient provides the following history. He was seen at the doctor yesterday for sinus congestion and cough and he was prescribed amoxicillin and cough syrup. He apparently has had though symptoms for several days and says it is not unusual for him to have a cold like this in the spring (his influenza, RSV, and COVID testing did come back negative). He went to bed last night feeling okay. This morning he got up at about 03:00 to use the bathroom and he reports feeling extremely weak at that time and in fact he fell onto the bathroom floor and landed on his side. He denies injury, head trauma, and loss of consciousness in the fall. He thinks he fell due to generalized weakness and he does not recall feeling lightheaded or dizzy prior to the fall. He was unable to get himself up for a couple of hours and his daughter finally helped him to the bed to stand up. EMS was summoned and he was brought in for evaluation. He was afebrile on arrival with stable vital signs. Pertinent labs included WBC count of 18.1, hemoglobin 13.6, normal electrolytes, creatinine 1.50, and CK 54. He had difficulties urinating Gracia catheter was attempted but unsuccessful. Urology was ultimately consulted and Dr. Webb was consulted. He performed a bedside cystoscopy at which time he saw a bladder neck contracture which was dilated. He has had a small amount of bleeding since the Gracia catheter was placed but nothing significant. He had not noticed any blood in his urine prior to that. He denies dysuria and abdominal pain. He has been having low back pain though that is not a new finding and he has been seeing a chiropractor. He denies saddle anesthesia and bowel incontinence. He has had urinary retention as detailed above but that is not necessarily a new finding for him he has not had nausea, vomiting, or diarrhea. He denies fever, chills, and sweats. He has felt a bit achy which he attributes to his cold. Given his fall and leukocytosis, he is being admitted for close observation. In the ED he was given a dose of ceftriaxone for possible UTI. Review of Systems Review of Systems: Twelve systems were reviewed. [facility] Past Medical History Medical History (Updated 11/15/22 @ 16:05 by Susy Driscoll PA-C) Benign prostatic hyperplasia Chronic kidney disease Chronic obstructive pulmonary disease Hearing loss History of tobacco abuse Impaired fasting glucose Obstructive sleep apnea on CPAP Right leg DVT Surgical History Surgical History (Updated 11/15/22 @ 16:05 by Susy Driscoll PA-C) History of appendectomy History of bilateral hip arthroplasty History of left nephrectomy History of partial colectomy Sacral nerve stimulator present Family History Family History Sibling Malignant neoplasm of prostate Family history of pancreatic cancer Family history of lung cancer Social History Social History Social History: Surrogate medical decision maker: Roxana Quintanilla, daughter. Code status: Full code. Smoking packs per day: 1 Smoking cigarettes per day: 20.0 Years smoked: 30 Smoking pack-years: 30.00 Smoking status: Former smoker Tobacco type: cigarettes Second hand tobacco smoke exposure: No Smoking end date: 08/30/03 Alcohol intake: current Drinks per week: 5 Alcohol use details: 5-6 beers on Wednesdays and sometimes on Fridays with friends at [facility] [employer]. Substance use: never Substance use type: does not use Lack of Transportation: No Lack of Food: Never True Current Housing: I Have Housing Concerned About Future Housing: No Difficulty Paying Gas/Electri
--- NOTE | 2022-11-13 19:33 | WPDURCON ---
Assessment and Plan Assessment and plan (1) Acute urinary retention: Code(s): R33.8 - Other retention of urine Status: Acute (2) Weakness: Code(s): R53.1 - Weakness Status: Acute (3) Acute UTI: Code(s): N39.0 - Urinary tract infection, site not specified Status: Acute (4) Urethral stricture: Code(s): N35.919 - Unspecified urethral stricture, male, unspecified site Status: Acute Assessment and Plan: Cystoscopy with urethral dilatation and catheter placement at bedside. Urology Consult Note HPI Date Seen: 11/13/22 Requesting Physician: Emeterio Uriostegui MD Primary Care Provider: Aj Tejeda MD Consult Narrative Narrative: Jason Daigle is a 77 year old male Well known to me with a long history of BPH and bladder cancer. He presents to the ED with weakness and a fall. CT scan revealed bladder distension the ER physicians and nursing staff were unable to place a catheter, hence consultation with us. At the bedside I performed cystoscopy and saw bladder neck contracture. I dilated that with urethral dilators over a wire and placed a 16 [place] tip catheter. The patient was relatively asymptomatic of urinary retention. I think his catheter can be removed at a couple days. Review of Systems Cardiovascular: Cardiovascular: Denies chest pain, Denies lightheadedness, Denies palpitations and Denies dyspnea Respiratory: Respiratory: Denies dyspnea Gastrointestinal: Gastrointestinal: Denies diarrhea, Denies nausea and Denies vomiting Genitourinary: Genitourinary: Denies hematuria and Denies dysuria Endocrine: Endocrine: Denies palpitations PMFSH Past Medical History Medical History COPD (chronic obstructive pulmonary disease) Edema of left lower extremity Hearing loss History of tobacco abuse IFG (impaired fasting glucose) MELANIE on CPAP Right leg DVT Sacral nerve stimulator present Surgical History Surgical History H/O colectomy 28 H/O left nephrectomy History of appendectomy Hx of bilateral hip replacements Family History Family History Sibling Malignant neoplasm of prostate Family history of pancreatic cancer Family history of lung cancer Social History Social History Social History: Surrogate medical decision maker: Roxana Quintanilla, daughter. Code status: Full code. Smoking packs per day: 1 Smoking cigarettes per day: 20.0 Years smoked: 30 Smoking pack-years: 30.00 Smoking status: Former smoker Tobacco type: cigarettes Second hand tobacco smoke exposure: No Smoking end date: 08/30/03 Alcohol intake: current Drinks per week: 5 Alcohol use details: 5-6 beers on Wednesdays and sometimes on Fridays with friends at [facility] [employer]. Substance use: never Substance use type: does not use Lack of Transportation: No Lack of Food: Never True Current Housing: I Have Housing Concerned About Future Housing: No Difficulty Paying Gas/Electric Bills: No Difficulty Paying for Meds: No Currently Unemployed: No Education: Master's Degree or Higher Difficulty w/ Childcare or Family Care: No Living arrangements: with family Additional living arrangements comments: Lives with daughter and son-in-law. 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 , served in [employer]. Spiritual care concerns: No Meds Home Medications and Allergies Home Medications Medication Instructions Recorded Confirmed Type aspirin 81 mg tablet,delayed 81 mg PO DAILY 08/17/19 11/13/22 History release ascorbic acid (vitamin C) 1,000 mg 1,000 mg PO DAILY 07/21/21 11/13/22 History tablet furosemide 20 mg tablet (Lasix
[2022-11-14 00:20] VITALS: PULSE 60; RESP 17; O2SAT 94
[2022-11-14 05:18] VITALS: BP 150/65; PULSE 56; RESP 20; TEMP 36.2; O2SAT 98
[2022-11-14] MEDS: AMOXICILLIN 500 MG CAPSULE PO ×3 (05:21→21:06)
[2022-11-14 07:20] LABS: Basophils Absolute Auto 0.1 K/mm3 (0.0-0.1); Basophils Percent Auto 0.7 % (0.2-1.2); Eosinophils Absolute Auto 0.2 K/mm3 (0-0.3); Eosinophils Percent Auto 2.2 % (0-4.4); Hematocrit 38.8 % (42.0-52.0); Hemoglobin 12.8 g/dL (14.0-18.0); Immature Granulocyte Absolute 0.04 K/mm3 (0.00-0.031); Immature Granulocyte Percent A 0.5 % (0-0.5); Lymphocytes Percent Auto 27.6 % (18.3-44.2); Mean Corpuscular Hemoglobin 31.4 pg (26-34); Mean Corpuscular Volume 95.1 fl (80-100); Mean Platelet Volume 9.6 fl (7.4-10.4); Monocytes Percent Auto 11.9 % (2.6-8.5); Neutrophils Percent Auto 57.1 % (45.5-73.1); Platelet Count Result 277 k/mm3 (150-375); Red Blood Count 4.08 M/mm3 (4.6-6.20); Red Cell Distribution Width 13.1 % (11.5-14.5); White Blood Count 8.7 K/mm3 (4.5-10.0)
[2022-11-14 07:30] LABS: Alanine Aminotransferase 22 U/L (6-50); Albumin Level 3.9 g/dL (3.5-5.1); Alkaline Phosphatase 54 U/L (38-126); Anion Gap 3 mmol/L (8-16); Aspartate Amino Transferase 22 U/L (17-59); Bilirubin,Total 0.7 mg/dL (0.2-1.3); Blood Urea Nitrogen 17 mg/dL (9-20); Calcium 8.8 mg/dL (8.4-10.2); Carbon Dioxide 33 mmol/L (22-30); Chloride 104 mmol/L (98-107); Estimated CRCL calculation 49 ml/min; Estimated Glomerular Filt Rate 42; Glucose 112 mg/dL (65-110); Sodium 140 mmol/L (137-145)
[2022-11-14] MEDS: TAMSULOSIN HCL 0.4 MG CAPSULE PO (08:14)
[2022-11-14] MEDS: FENOFIBRATE,MICRONIZED 48 MG TABLET PO (08:14)
[2022-11-14] MEDS: ASCORBIC ACID 500 MG TABLET 1000 MG PO (08:14)
[2022-11-14] MEDS: MULTIVITAMINS THERAPEUTIC TAB (*BKC) 1 TABLET PO (08:14)
[2022-11-14] MEDS: ASPIRIN 81 MG ENTERIC TABLET PO (08:15)
[2022-11-14] MEDS: amLODIPine BESYLATE 5 MG TABLET 10 MG PO (08:15)
[2022-11-14] MEDS: DOCUSATE SODIUM 100 MG CAPSULE PO ×2 (08:15→21:06)
[2022-11-14] MEDS: SODIUM CHLORIDE 0.9% IV 1,000 ML 70 ML IV CONT (09:54)
[2022-11-14] MEDS: ACETAMINOPHEN 325 MG TABLET 650 MG PO (10:46)
--- NOTE | 2022-11-14 10:56 | WPDUROPN2 ---
Progress Note: A&P Assessment and Plan (1) Benign prostatic hyperplasia: Code(s): N40.0 - Benign prostatic hyperplasia without lower urinary tract symptoms Status: Acute (2) Urethral stricture: Code(s): N35.919 - Unspecified urethral stricture, male, unspecified site Status: Acute Assessment and Plan: Stricture dilated in ER Gracia catheter should remain until at least Wednesday - remove anytime thereafter. Subjective Subjective Date/Time Seen: 11/14/22 10:56 Tolerating catheter well, urine clear Review of Systems Cardiovascular: Cardiovascular: Denies chest pain, Denies lightheadedness, Denies palpitations and Denies dyspnea Respiratory: Respiratory: Denies dyspnea Gastrointestinal: Gastrointestinal: Denies diarrhea, Denies nausea and Denies vomiting Genitourinary: Genitourinary: Denies hematuria and Denies dysuria Endocrine: Endocrine: Denies palpitations Exam Const: General: no acute distress Resp: Effort & Inspection: normal respiratory effort GI: Inspection: non-distended GI Palp: No abdominal tenderness and No Guarding due to palpation present (GI) Auscultation: normal bowel sounds Objective Data Vital Signs Vital Signs: Vital Signs - 24 hr 11/13/22 11:00 11/13/22 11:03 11/13/22 11:15 Temperature Pulse Rate 67 52 L 51 L Respiratory Rate 19 16 16 Blood Pressure 155/92 H Pulse Oximetry 99 98 99 Oxygen Delivery 11/13/22 11:30 11/13/22 11:45 11/13/22 17:39 Temperature Pulse Rate 66 68 57 L Respiratory Rate 14 19 16 Blood Pressure 142/62 H Pulse Oximetry 100 98 Oxygen Delivery 11/13/22 19:32 11/13/22 21:51 11/13/22 21:51 Temperature Pulse Rate Respiratory Rate Blood Pressure Pulse Oximetry 95 95 Oxygen Delivery Room Air Room Air Autopap 11/13/22 22:00 11/14/22 00:20 11/14/22 05:18 Temperature 98.5 F 97.1 F L Pulse Rate 57 L 60 56 L Respiratory Rate 14 17 20 Blood Pressure 155/69 H 150/65 H Pulse Oximetry 99 94 98 Oxygen Delivery Autopap 11/14/22 09:55 11/14/22 08:15 Temperature Pulse Rate Respiratory Rate Blood Pressure Pulse Oximetry Oxygen Delivery Room Air Room Air Intake/Output Intake/Output: Intake & Output 11/11/22 11/12/22 11/13/22 11/14/22 23:59 23:59 23:59 23:59 Intake Total 1550 400 Output Total 1900 675 Balance -350 -275 Meds/Results Medications: Active Medications Generic Name Dose Route Start Last Admin Trade Name Freq PRN Reason Stop Dose Admin Acetaminophen 650 mg 11/14/22 10:36 11/14/22 10:46 Acetaminophen 325 Mg Tablet PO 650 mg Q4H PRN Administration Mild Pain (1-3) or Fever Amlodipine Besylate 10 mg 11/14/22 09:00 11/14/22 08:15 Amlodipine Besylate 5 Mg Tablet PO 10 mg QAM TEJAS Administration Amoxicillin 500 mg 11/14/22 06:00 11/14/22 05:21 Amoxicillin 500 Mg Capsule PO 500 mg Q8H TEJAS Administration Ascorbic Acid 1,000 mg 11/14/22 09:00 11/14/22 08:14 Ascorbic Acid 500 Mg Tablet PO 1,000 mg DAILY TEJAS Administration Aspirin 81 mg 11/14/22 09:00 11/14/22 08:15 Aspirin 81 Mg Enteric Tablet PO 81 mg DAILY TEJAS Administration Docusate Sodium 100 mg 11/14/22 09:00 11/14/22 08:15 Docusate Sodium 100 Mg Capsule PO 100 mg Q12HR TEJAS Administration Fenofibrate 48 mg 11/14/22 09:00 11/14/22 08:14 Fenofibrate,Micronized 48 Mg Tablet PO 48 mg QAM TEJAS Administration Finasteride 5 mg 11/14/22 21:00 Finasteride 5 Mg Tablet PO QHS TEJAS Gabapentin 100 mg 11/14/22 21:00 Gabapentin 100 Mg Capsule PO HS TEJAS Guaifenesin/Codeine Phosphate 5 ml 11/14/22 00:49 Guaifenesin/Codeine (*Crx) 200/20 Mg 10 Ml Syrup PO Q6H PRN cough Ceftriaxone Sodium 1 gm in 50 mls @ 100 mls/hr 11/14/22 12:00 Rocephin 1 Gm/Ns 50 Ml IVPB Q24H TEJAS Sodium Chloride 1,000 mls @ 70 mls/hr 11/14/22 08:50 11/14/22 09:54 Normal Saline Iv IV CONT 70 m
[2022-11-14 14:00] VITALS: BP 141/66; PULSE 60; RESP 20; TEMP 36.6; O2SAT 99
--- NOTE | 2022-11-14 15:58 | PM.IMPN ---
Progress Note: A&P Assessment and Plan (1) Acute urinary retention: Code(s): R33.8 - Other retention of urine Status: Acute Assessment and Plan: Patient found to have elevated creatinine and urinary retention in the ED. His creatinine is elevated from baseline, likely due to urinary retention. Urology consulted and patient was found to have bladder neck contracture. Dr. Webb did a cystoscopy with dilation and Gracia catheter insertion Gracia catheter most likely will be in place for a couple days. Monitor BUN and creatinine (2) Urinary tract infection: Code(s): N39.0 - Urinary tract infection, site not specified Status: Acute Assessment and Plan: During evaluation of a [place] [address] UA 21 to 50 WBC and 1+ leukocyte esterase Pt started on ceftriaxone Urine culture pending, tailor antibiotics to culture results (3) Weakness: Code(s): R53.1 - Weakness Status: Acute Assessment and Plan: most likely due to UTI and urinary retention. See above. (4) Urethral stricture: Code(s): N35.919 - Unspecified urethral stricture, male, unspecified site Status: Acute Assessment and Plan: Cystoscopy with dilation performed. Patient does see Urology as an outpatient. (5) Acute kidney injury superimposed on chronic kidney disease: Code(s): N17.9 - Acute kidney failure, unspecified; N18.9 - Chronic kidney disease, unspecified Status: Acute Assessment and Plan: Most likely due to urinary retention UTI. monitor kidney function (6) Benign prostatic hyperplasia: Code(s): N40.0 - Benign prostatic hyperplasia without lower urinary tract symptoms Status: Chronic Assessment and Plan: chronic, continue finasteride and tamsulosin Subjective Date/time seen: 11/14/22 15:58 Interval history: Patient up in the chair in good spirits. Patient states that he was recently hospitalized in July for urinary retention and urethral problems for he did have to have urethra scraped. Patient states that he does not have any dysuria at this time nor did he before he presented to the ED. He is having blood in his urine post catheter insertion. Review of Systems Review of Systems: All systems reviewed & are unremarkable except as noted in HPI and below Exam Narrative: GENERAL: Comfortable, no acute distress HENMT: moist mucous membranes EYES: EOM intact b/l NECK: no lymphadenopathy RESPIRATORY: clear to auscultation CARDIO: RRR GI: soft, nontender, bowel sounds present : Gracia catheter present and draining blood-tinged urine, tubing patent SKIN: no rashes EXTREMITIES: no edema, redness or tenderness Objective Data Vital Signs Vital Signs: Vital Signs - 24 hr 11/13/22 17:39 11/13/22 19:32 11/13/22 21:51 Temperature Pulse Rate 57 L Respiratory Rate 16 Blood Pressure 142/62 H Pulse Oximetry 98 95 95 Oxygen Delivery Room Air Room Air 11/13/22 21:51 11/13/22 22:00 11/14/22 00:20 Temperature 98.5 F Pulse Rate 57 L 60 Respiratory Rate 14 17 Blood Pressure 155/69 H Pulse Oximetry 99 94 Oxygen Delivery Autopap Autopap 11/14/22 05:18 11/14/22 09:55 11/14/22 08:15 Temperature 97.1 F L Pulse Rate 56 L Respiratory Rate 20 Blood Pressure 150/65 H Pulse Oximetry 98 Oxygen Delivery Room Air Room Air 11/14/22 12:51 Temperature Pulse Rate Respiratory Rate Blood Pressure Pulse Oximetry Oxygen Delivery Room Air Intake/Output Intake/Output: Intake & Output 11/11/22 11/12/22 11/13/22 11/14/22 23:59 23:59 23:59 23:59 Intake Total 1550 1230 Output Total 1900 675 Balance -350 555 Meds/Results Medications: Active Medications Generic Name Dose Route Start Last Admin Trade Name Freq PRN Reason Stop Dose Admin Acetaminophen 650 mg 11/14/22 10:36
[2022-11-14] MEDS: FINASTERIDE 5 MG TABLET PO (21:06)
[2022-11-14] MEDS: GABAPENTIN 100 MG CAPSULE PO (21:06)
[2022-11-14 21:43] VITALS: BP 147/73; PULSE 79; RESP 18; TEMP 37.1; O2SAT 97
[2022-11-14 21:44] VITALS: BP 129/97; PULSE 88; RESP 20; O2SAT 97
[2022-11-14 21:45] VITALS: BP 183/91; PULSE 92; RESP 20; O2SAT 98
[2022-11-15] MEDS: SODIUM CHLORIDE 0.9% IV 1,000 ML 70 ML IV CONT ×2 (01:54→12:10)
[2022-11-15 05:29] VITALS: BP 157/81; PULSE 75; RESP 18; TEMP 36.7; O2SAT 96
[2022-11-15] MEDS: AMOXICILLIN 500 MG CAPSULE PO ×2 (05:58→12:10)
[2022-11-15 06:18] LABS: Basophils Absolute Auto 0.1 K/mm3 (0.0-0.1); Basophils Percent Auto 0.7 % (0.2-1.2); Eosinophils Absolute Auto 0.2 K/mm3 (0-0.3); Eosinophils Percent Auto 1.8 % (0-4.4); Hematocrit 38.7 % (42.0-52.0); Hemoglobin 13.1 g/dL (14.0-18.0); Immature Granulocyte Absolute 0.03 K/mm3 (0.00-0.031); Immature Granulocyte Percent A 0.4 % (0-0.5); Lymphocytes Absolute Auto 1.67 K/mm3 (0.9-3.2); Mean Corpuscular HGB Conc 33.9 g/dl (32-36); Mean Corpuscular Volume 94.4 fl (80-100); Mean Platelet Volume 9.5 fl (7.4-10.4); Monocytes Absolute Auto 0.9 K/mm3 (0.1-0.6); Monocytes Percent Auto 10.7 % (2.6-8.5); Neutrophils Absolute Auto 5.5 K/mm3 (1.3-6.7); Neutrophils Percent Auto 66.4 % (45.5-73.1); Platelet Count Result 275 k/mm3 (150-375); Red Cell Distribution Width 13.2 % (11.5-14.5); White Blood Count 8.3 K/mm3 (4.5-10.0)
[2022-11-15 07:26] LABS: Alanine Aminotransferase 19 U/L (6-50); Albumin Level 3.7 g/dL (3.5-5.1); Alkaline Phosphatase 52 U/L (38-126); Anion Gap 2 mmol/L (8-16); Aspartate Amino Transferase 17 U/L (17-59); Bilirubin,Total 0.7 mg/dL (0.2-1.3); Blood Urea Nitrogen 14 mg/dL (9-20); Calcium 8.7 mg/dL (8.4-10.2); Carbon Dioxide 31 mmol/L (22-30); Chloride 105 mmol/L (98-107); Estimated CRCL calculation 53 ml/min; Estimated Glomerular Filt Rate 45; Glucose 110 mg/dL (65-110); Potassium 4.2 mmol/L (3.4-5.0); Sodium 138 mmol/L (137-145)
--- NOTE | 2022-11-15 08:45 | WPDUROPN2 ---
Progress Note: A&P Assessment and Plan (1) Benign prostatic hyperplasia: Code(s): N40.0 - Benign prostatic hyperplasia without lower urinary tract symptoms Status: Chronic (2) Acute kidney injury superimposed on chronic kidney disease: Code(s): N17.9 - Acute kidney failure, unspecified; N18.9 - Chronic kidney disease, unspecified Status: Acute (3) Urethral stricture: Code(s): N35.919 - Unspecified urethral stricture, male, unspecified site Status: Acute Assessment and Plan: Tolerating catheter and serum creat. improved with catheter drainage. Will plan discharge with indwelling catheter until formal dilatation of urethral stricture can be undertaken under anesthesia -> discussed with pt. Subjective Subjective Date/Time Seen: 11/15/22 08:45 Comfortable, tolerating catheter Review of Systems Cardiovascular: Cardiovascular: Denies chest pain, Denies lightheadedness, Denies palpitations and Denies dyspnea Respiratory: Respiratory: Denies dyspnea Gastrointestinal: Gastrointestinal: Denies diarrhea, Denies nausea and Denies vomiting Genitourinary: Genitourinary: Denies hematuria and Denies dysuria Endocrine: Endocrine: Denies palpitations Exam Const: General: no acute distress Resp: Effort & Inspection: normal respiratory effort GI: Inspection: non-distended GI Palp: No abdominal tenderness and No Guarding due to palpation present (GI) Auscultation: normal bowel sounds Objective Data Vital Signs Vital Signs: Vital Signs - 24 hr 11/14/22 09:55 11/14/22 12:51 11/14/22 14:00 Temperature 98 F Pulse Rate 60 Respiratory Rate 20 Blood Pressure 141/66 H Pulse Oximetry 99 Oxygen Delivery Room Air Room Air 11/14/22 21:43 11/14/22 21:44 11/14/22 21:45 Temperature 98.8 F Pulse Rate 79 88 92 Respiratory Rate 18 20 20 Blood Pressure 147/73 H 129/97 H 183/91 H Pulse Oximetry 97 97 98 Oxygen Delivery 11/15/22 05:29 Temperature 98.1 F Pulse Rate 75 Respiratory Rate 18 Blood Pressure 157/81 H Pulse Oximetry 96 Oxygen Delivery Intake/Output Intake/Output: Intake & Output 11/12/22 11/13/22 11/14/22 11/15/22 23:59 23:59 23:59 23:59 Intake Total 1550 1730 1150 Output Total 1900 2175 1750 Balance -350 -445 -600 Meds/Results Medications: Active Medications Generic Name Dose Route Start Last Admin Trade Name Freq PRN Reason Stop Dose Admin Acetaminophen 650 mg 11/14/22 10:36 11/14/22 10:46 Acetaminophen 325 Mg Tablet PO 650 mg Q4H PRN Administration Mild Pain (1-3) or Fever Amlodipine Besylate 10 mg 11/14/22 09:00 11/14/22 08:15 Amlodipine Besylate 5 Mg Tablet PO 10 mg QAM TEJAS Administration Amoxicillin 500 mg 11/14/22 06:00 11/15/22 05:58 Amoxicillin 500 Mg Capsule PO 500 mg Q8H TEJAS Administration Ascorbic Acid 1,000 mg 11/14/22 09:00 11/14/22 08:14 Ascorbic Acid 500 Mg Tablet PO 1,000 mg DAILY TEJAS Administration Aspirin 81 mg 11/14/22 09:00 11/14/22 08:15 Aspirin 81 Mg Enteric Tablet PO 81 mg DAILY TEJAS Administration Docusate Sodium 100 mg 11/14/22 09:00 11/14/22 21:06 Docusate Sodium 100 Mg Capsule PO 100 mg Q12HR TEJAS Administration Fenofibrate 48 mg 11/14/22 09:00 11/14/22 08:14 Fenofibrate,Micronized 48 Mg Tablet PO 48 mg QAM TEJAS Administration Finasteride 5 mg 11/14/22 21:00 11/14/22 21:06 Finasteride 5 Mg Tablet PO 5 mg QHS TEJAS Administration Gabapentin 100 mg 11/14/22 21:00 11/14/22 21:06 Gabapentin 100 Mg Capsule PO 100 mg HS TEJAS Administration Guaifenesin/Codeine Phosphate 5 ml 11/14/22 00:49 Guaifenesin/Codeine (*Crx) 200/20 Mg 10 Ml Syrup PO Q6H PRN cough Sodium Chloride 1,000 mls @ 70 mls/hr 11/14/22 08:50 11/15/22 01:54 Normal Saline Iv IV CONT 70 mls/hr .[id number] TEJAS Administration Multivitamins Therapeutic 1 tablet 11/14/22 09:00 11/14/22 08:14 Multivitamins The
[2022-11-15] MEDS: FENOFIBRATE,MICRONIZED 48 MG TABLET PO (08:48)
[2022-11-15] MEDS: DOCUSATE SODIUM 100 MG CAPSULE PO (08:48)
[2022-11-15] MEDS: ASPIRIN 81 MG ENTERIC TABLET PO (08:48)
[2022-11-15] MEDS: amLODIPine BESYLATE 5 MG TABLET 10 MG PO (08:48)
[2022-11-15] MEDS: MULTIVITAMINS THERAPEUTIC TAB (*BKC) 1 TABLET PO (08:48)
[2022-11-15] MEDS: TAMSULOSIN HCL 0.4 MG CAPSULE PO (08:48)
[2022-11-15] MEDS: ASCORBIC ACID 500 MG TABLET 1000 MG PO (08:48)
[2022-11-15] MEDS: WATER FOR IRRIGATION, STERILE 1,000 ML BOTTLE 1000 ML (10:38)
--- NOTE | 2022-11-15 12:54 | PM.DS ---
DS: Admitting Diagnosis Discharge Date 11/15/22 Admitting Diagnosis Urinary retention DS: Discharge Diagnosis Discharge Diagnosis (1) Acute urinary retention: Code(s): R33.8 - Other retention of urine Status: Acute Assessment and Plan: Patient found to have elevated creatinine and urinary retention in the ED. His creatinine is elevated from baseline, likely due to urinary retention. Is resolving. Urology consulted and patient was found to have bladder neck contracture. Dr. Webb did a cystoscopy with dilation and Gracia catheter insertion Patient will be discharged with Gracia catheter and will follow-up with urology as an outpatient. (2) Urinary tract infection: Code(s): N39.0 - Urinary tract infection, site not specified Status: Acute Assessment and Plan: During evaluation of a fall [place] [address] UA 21 to 50 WBC and 1+ leukocyte esterase Patient started on ceftriaxone but this was discontinued after urine culture came back negative. (3) Weakness: Code(s): R53.1 - Weakness Status: Acute Assessment and Plan: most likely due to UTI and urinary retention. See above. (4) Urethral stricture: Code(s): N35.919 - Unspecified urethral stricture, male, unspecified site Status: Acute Assessment and Plan: Cystoscopy with dilation performed. Patient does see Urology as an outpatient. (5) Acute kidney injury superimposed on chronic kidney disease: Code(s): N17.9 - Acute kidney failure, unspecified; N18.9 - Chronic kidney disease, unspecified Status: Acute Assessment and Plan: Most likely due to urinary retention UTI. monitor kidney function (6) Benign prostatic hyperplasia: Code(s): N40.0 - Benign prostatic hyperplasia without lower urinary tract symptoms Status: Chronic Assessment and Plan: chronic, continue finasteride and tamsulosin DS: Summary Hospital Course Reason for hospitalization: urinary retention, urethral stricture Hospital Course: This is a 77-year-old male with a past medical history of COPD, sleep apnea, BPH the presented to ED on 11/13/2022 with chief complaint of weakness. Patient had a fall home while trying due to the bathroom due to this weakness. When he presented to the ED he was found to have urinary retention. Patient's labs significant for WBC count 18.1, hemoglobin of 13.6, creatinine of 1.5. patient was started on IV fluids. UA with possible infection. Due to urinary retention Gracia catheter was attempted to be placed but unsuccessful. Urology was consulted and they to perform bedside cystoscopy which revealed bladder neck contracture which was dilated. Gracia catheter then successfully placed. Patient admitted and monitored. Ceftriaxone was started and then discontinued after urine culture came back negative. Urology followed patient and would like patient to be discharged with Gracia catheter and follow-up with them in the office for urethral dilation and catheter removal. Time Spent with Patient Time attestation: Total time spent providing and/or coordinating discharge services: Exam Narrative: GENERAL: Comfortable, no acute distress HENMT: moist mucous membranes EYES: EOM intact b/l NECK: no lymphadenopathy RESPIRATORY: clear to auscultation CARDIO: RRR GI: soft, nontender, bowel sounds present : Gracia catheter present and draining blood-tinged urine, tubing patent SKIN: no rashes EXTREMITIES: no edema, redness or tenderness DS: Data Data Completed and Pending Labs on day of discharge: Labs from last 24 hours 11/15/22 11/15/22 07:02 06:07 WBC 8.3 RBC 4.10 L Hgb 13.1 L Hct 38.7 L MCV 94.4 MCH 32.0 MCHC 33.9 RDW 13.2 Plt Count 275 MPV 9.5 Immature Gran % (Auto) 0.4 Neut % (Auto) 66.4 Lymph % (Auto) 20.0 [place] % (Auto) 10.7
== END 2022-11-15 15:41 | disposition home or self-care (01) | DRG 699 ==
LOC: ANHED 16:16 → ANH3MEDSUR 16:26
PROVIDERS: Admitting Provider Internal Medicine; Emergency Provider Emergency Medicine; PCP Family Medicine; Visit Provider Internal Medicine Critical Care Medicine
DX: N32.0 Bladder-neck obstruction (principal); N17.9 Acute kidney failure, unspecified; R33.8 Other retention of urine; N35.919 Unspecified urethral stricture, male, unspecified site; N18.9 Chronic kidney disease, unspecified; J44.9 Chronic obstructive pulmonary disease, unspecified; N40.0 Benign prostatic hyperplasia without lower urinary tract symptoms; Z20.822 Contact with and (suspected) exposure to COVID-19; G47.33 Obstructive sleep apnea (adult) (pediatric); W18.39XA Other fall on same level, initial encounter; Z96.643 Presence of artificial hip joint, bilateral; Z86.718 Personal history of other venous thrombosis and embolism; Z90.49 Acquired absence of other specified parts of digestive tract; Z90.5 Acquired absence of kidney; Z87.891 Personal history of nicotine dependence; Z79.82 Long term (current) use of aspirin
CPT/HCPCS: 36415; 70450; 71046; 72170; 74177; 80053; 81001; 82550; 83605; 83735; 85025; 85610; 85730; 87040; 87086; 87637; 93005; 96361; 96365; 96367; 97161; 97165; 99285; A9270; G0378; J0696; J7030; J7040; Q9967

== ENCOUNTER 2022-11-26 00:04 | Day surgery (SDC) | payer MEDICARE, OTHER, SELFPAY ==
[2022-11-24 15:32] VITALS: BMI 38.9
--- NOTE | 2022-11-24 15:46 | PC.NURSE ---
Report to the Outpatient Waiting Room, entrance under the green pavilion located off [facility], at time __1:15 PM on date _11/26/22 . Planned Procedure Time: __3:15 PM . Time changes happen often and if your time is changed the preop area will call you the afternoon before. - You and your visitor will be asked to self-screen and do not enter if you have any COVID symptoms. - Only one visitor is requested with a max of two and NO children visitors are allowed at this time. - The patient visitor may be requested to leave or wait in car when not with patient due to distancing restrictions. - A mask is optional within the hospital at this time. Patients may have clear liquids (water, carbonated beverages, clear teas, apple juice) until 3 hours prior to surgery (1215 PM) with a maximum of 20 ounces. - No food from midnight until time of surgery - Infants may have breast milk until 4 hours before surgery, formula 6 hours prior to surgery. - Children will be allowed to drink immediately following surgery. If applicable, please bring a bottle or sippy cup to assist with drinking. Juice, water, soda, and popsicles are readily available. For infants on formula, please bring formula the day of surgery. Pacifiers are allowed. Take the following medications with a SIP of water the morning of surgery: _AMLODIPINE, CEPHALEXIN, INHALER__ DO NOT STOP ANY OF YOUR OTHER PRESCRIPTION MEDICATIONS PRIOR TO SURGERY ?EXCEPT THE FOLLOWING Medications to discontinue - _ASPIRIN PER DR. PARIKH'S INSTRUCTIONS Medications to discontinue per ANESTHESIA -_MULTIVITAMIN, Date to take last dose 11/24/22_ Please no make-up, nail belarusian, hairspray, perfume, deodorant, or body powder the day of surgery. No jewelry (including any body piercings) or valuables the day of surgery, leave them at home. Please take a shower or bath the night before, or the morning of, surgery with an antibacterial soap. Wear comfortable, loose fitting clothing. Children are encouraged to wear pajamas. - Jewelry must be removed prior to entering the operating room. Rings and piercings that are not removed may be cut off. - The hospital will not accept responsibility for valuables. - Please leave all valuables, including medications, at home the day of surgery. If you are going home after surgery, a licensed freight delivery driver must drive you home. - NO public transportation without another adult if you receive anesthesia. - We recommend that an adult stay with you for 24 hours following discharge. - We also recommend that you do not drive, make important decision, drink alcoholic beverages, or take any drugs that were not prescribed by your health care provider for at least 24 hours after your discharge time. For Pediatric surgeries, we recommend two adults accompany the child home. Follow any additional instructions given to you from your surgeon. If you or anyone in your household have experienced Covid symptoms in the past week, please notify your surgeon or the nurse liaison at the phone number below for possible testing. Telephone instructions given to ____PATIENT and asked if any additional questions and then verbalized understanding. Patient advised to call surgeon office or pre surgery nurse liaison [phone] if any additional questions.
--- NOTE | 2022-11-25 15:20 | WPDANESEPPF ---
Anes - Initial Pre Proc Eval Procedure: Operation Date: 11/26/22 15:15 Proposed Procedures p Cystoscopy, Urethral Dilatation - Shar Webb MD Date/Time: 11/25/22 15:20 Surgeon: Shar Webb MD Pre Op Diagnosis: urethral stricture Patient Data Age: 77 Gender: M Height: 1.85 m Weight: 134.09 kg Allergies Allergy/AdvReac Type Severity Reaction Status Date / Time morphine AdvReac Severe Confusion/Severe Verified 11/26/22 09:47 agitation Home Medications Medication Instructions Recorded Confirmed Type aspirin 81 mg tablet,delayed 81 mg PO DAILY 08/17/19 11/24/22 History release ascorbic acid (vitamin C) 1,000 mg 1,000 mg PO DAILY 07/21/21 11/24/22 History tablet furosemide 20 mg tablet (Lasix) 20 mg PO DAILY 07/21/21 11/24/22 History multivitamin 1 tablet PO DAILY 07/21/21 11/24/22 History tamsulosin 0.4 mg capsule (Flomax) 0.4 mg PO DAILY 07/21/21 11/24/22 History fenofibrate 54 mg tablet 54 mg PO DAILY 08/10/22 11/24/22 History gabapentin 100 mg capsule 100 mg PO HS 08/10/22 11/24/22 History amlodipine 5 mg tablet (Norvasc) 10 mg PO QAM #30 tabs 08/20/22 11/24/22 Rx docusate sodium 100 mg capsule 100 mg PO Q12HR #60 caps 08/20/22 11/24/22 Rx finasteride 5 mg tablet (Proscar) 5 mg PO QHS #30 tabs 08/20/22 11/24/22 Rx potassium chloride 10 mEq 10 meq PO DAILY #30 tabs 11/03/22 11/24/22 Rx tablet,extended release codeine 10 mg-guaifenesin 100 mg/5 5 ml PO Q6H PRN cough #120 mL 11/12/22 11/24/22 Rx mL oral liquid cephalexin 500 mg capsule 500 mg BID 11/24/22 11/24/22 History umeclidinium 62.5 mcg-vilanterol 1 inh inhalation DAILY #60 ea 11/24/22 11/24/22 Rx 25 mcg/actuation powdr for inhalation (Anoro Ellipta) Patient hx anesthesia problems: none Family hx anesthesia problems: none Results Review: All pre-operative results and documents have been reviewed as part of the pre-operative evaluation. [facility] Past Medical History Medical History (Updated 11/26/22 @ 10:03 by Giovanni Wu MD) Benign prostatic hyperplasia Chronic kidney disease Chronic obstructive pulmonary disease CKD (chronic kidney disease) stage 3, GFR 30-59 ml/min COPD (chronic obstructive pulmonary disease) Gross hematuria Hearing loss History of tobacco abuse Impaired fasting glucose Obesity Obstructive sleep apnea on CPAP MELANIE on CPAP Right leg DVT Surgical History Surgical History History of appendectomy History of bilateral hip arthroplasty History of left nephrectomy History of partial colectomy Sacral nerve stimulator present Family History Family History Sibling Malignant neoplasm of prostate Family history of pancreatic cancer Family history of lung cancer Social History Social History Social History: Surrogate medical decision maker: Roxana Quintanilla, daughter. Code status: Full code. Smoking packs per day: 1 Smoking cigarettes per day: 20.0 Years smoked: 30 Smoking pack-years: 30.00 Smoking status: Former smoker Tobacco type: cigarettes Second hand tobacco smoke exposure: No Smoking end date: 08/30/03 Alcohol intake: current Drinks per week: 5 Alcohol use details: 5-6 BEERS/WEEK Substance use: never Substance use type: does not use Lack of Transportation: No Lack of Food: Never True Current Housing: I Have Housing Concerned About Future Housing: No Difficulty Paying Gas/Electric Bills: No Difficulty Paying for Meds: No Currently Unemployed: No Education: Master's Degree or Higher Difficulty w/ Childcare or Family Care: No Living arrangements: with family Additional living arrangements comments: LIVES WITH DAUGHTER Occupation/Education: retired Additional occupation/education comments: 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
--- NOTE | 2022-11-26 06:20 | WPDHPUPDATE1 ---
History and Physical Update Update Date/Time: 11/26/22 06:20 History and Physical has been reviewed, including an updated exam of the patient. There are NO changes in the patient's condition. Risks, benefits, and alternatives have been discussed and questions answered. Patient agrees to proceed with procedure.
[2022-11-26 09:30] VITALS: BP 132/56; PULSE 50; RESP 18; TEMP 36.3; O2SAT 97
[2022-11-26] MEDS: LACTATED RINGERS 1,000 ML 30 ML IV CONT (10:05)
[2022-11-26] MEDS: ceFAZolin 3 GM/D5W 100 ML 100 ML IVPB (10:59)
[2022-11-26 11:29] VITALS: BP 127/58; PULSE 51; RESP 21; O2SAT 93
--- NOTE | 2022-11-26 11:29 | W.PM.PROC2 ---
Procedure Note - Detailed Date of Procedure 11/26/22 Pre-op Diagnosis Urethral stricture Post-op Diagnosis Other (Bladder neck contracture) Procedure Performed Cystoscopy with urethral dilatation Surgeon Shar Webb MD Anesthesia General Description of Procedure patient is brought to the operative suite was prepped draped in routine sterile fashion while in dorsal lithotomy position. After the uneventful induction of a general LMA anesthetic cystoscopy is undertaken with a 19 F rigid cystoscope. His urethral strictures been previously dilated but he does have a moderately constricting bladder neck contracture. Additionally he has marked prostatic hyperplasia with trilobar enlargement. He has a moderate size median lobe. I dilated the bladder neck from 18 F to 30 F with Deanna sounds. Placed a 20 F urethral catheter over a guidewire. Scopes and wires removed and he was taken to the recovery room in good condition. Drains Yes Packing No Pathology None sent Complications No immediate complications Condition Stable Disposition PACU
[2022-11-26 11:50] VITALS: BP 137/61; PULSE 44; RESP 20
[2022-11-26 12:20] VITALS: BP 129/62; PULSE 46; RESP 18
== END 2022-11-26 12:32 | disposition home or self-care (01) ==
PROVIDERS: PCP Family Medicine; Visit Provider Urology
PROC: 0T7D8ZZ Dilation of Urethra, Via Natural or Artificial Opening Endoscopic (ICD-10-PCS; CPT 52281; principal; 2022-11-26 15:15)
DX: N32.0 Bladder-neck obstruction (principal); N40.0 Benign prostatic hyperplasia without lower urinary tract symptoms; N18.30 Chronic kidney disease, stage 3 unspecified; J44.9 Chronic obstructive pulmonary disease, unspecified; G47.33 Obstructive sleep apnea (adult) (pediatric); Z86.718 Personal history of other venous thrombosis and embolism; Z90.5 Acquired absence of kidney; Z79.82 Long term (current) use of aspirin; Z79.51 Long term (current) use of inhaled steroids; Z90.49 Acquired absence of other specified parts of digestive tract; Z87.891 Personal history of nicotine dependence; E66.9 Obesity, unspecified; Z68.38 Body mass index [BMI] 38.0-38.9, adult
CPT/HCPCS: 52281; C1769; J0690; J2704; J3010; J7120

== ENCOUNTER 2022-12-17 10:44 | Outpatient (CLI) | payer MEDICARE, OTHER, SELFPAY ==
[2022-12-17 11:40] LABS: Albumin Level 4.1 g/dL (3.5-5.1); Anion Gap 6 mmol/L (8-16); Blood Urea Nitrogen 23 mg/dL (9-20); Calcium 8.8 mg/dL (8.4-10.2); Carbon Dioxide 30 mmol/L (22-30); Chloride 104 mmol/L (98-107); Creatine Kinase 46 U/L (55-170); Estimated Glomerular Filt Rate 49; Glucose 100 mg/dL (65-110); Phosphorus 3.2 mg/dL (2.5-4.5); Sodium 140 mmol/L (137-145)
[2022-12-17 11:46] LABS: Complement C3 110 mg/dL (88-165)
[2022-12-17 13:24] LABS: Creatinine Urine 41.6 mg/dL; Total Protein Urine Random 9 mg/dL; Ur Ttl Prot Creatinine Ratio 0.22 mg/mg (0-0.20)
[2022-12-17 13:33] LABS: Sodium Urine Random 106 meq/L
[2022-12-21 20:30] LABS: Anti Glomerular Basement Memb <1.0 AI (<1.0)
[2022-12-23 01:09] LABS: ANCA Screen Negative (Negative)
[2022-12-23 05:35] LABS: Creatinine, Random Urine 43 mg/dL (20-320); Total Protein/Creatinine Ratio 93 mg/g creat (25-148)
== END 2022-12-17 10:45 | disposition home or self-care (01) ==
PROVIDERS: PCP Family Medicine; Visit Provider Internal Medicine Nephrology
DX: N18.31 Chronic kidney disease, stage 3a (principal); Z90.5 Acquired absence of kidney
CPT/HCPCS: 36415; 80069; 82550; 82570; 83520; 84156; 84166; 84300; 86036; 86038; 86160; 86225

== ENCOUNTER 2023-01-21 00:56 | Day surgery (SDC) | payer MEDICARE, OTHER, SELFPAY ==
--- NOTE | 2023-01-11 15:12 | PC.NURSE ---
Report to the Outpatient Waiting Room, entrance under the green pavilion located off [facility], at time _1000 on date _01/21/23 . Planned Procedure Time: ___1200 . Time changes happen often and if your time is changed the preop area will call you the afternoon before. - You and your visitor will be asked to self-screen and do not enter if you have any COVID symptoms. - A mask is optional within the hospital at this time. Patients may have clear liquids (water, carbonated beverages, clear teas, apple juice) until 3 hours prior to surgery with a maximum of 20 ounces. - No food from midnight until time of surgery - Infants may have breast milk until 4 hours before surgery, infant formula 6 hours prior to surgery. - Children will be allowed to drink immediately following surgery. If applicable, please bring a bottle or sippy cup to assist with drinking. Juice, water, soda, and popsicles are readily available. For infants on formula, please bring formula the day of surgery. Pacifiers are allowed. Take the following medications with a SIP of water the morning of surgery: __AMLODIPINE,INHALER DO NOT STOP ANY OF YOUR OTHER PRESCRIPTION MEDICATIONS PRIOR TO SURGERY ?EXCEPT THE FOLLOWING Medications to discontinue per physician ____ALL VITAMINS/SUPPLEMENTS 3 DAYS PRE OP.LAST DOSE 01/17/23. ASPIRIN PER DR PARIKH PT WILL CALL Please no make-up, nail cypriot, hairspray, perfume, deodorant, or body powder the day of surgery. No jewelry (including any body piercings) or valuables the day of surgery, leave them at home. Please take a shower or bath the night before, or the morning of, surgery with an antibacterial soap. Wear comfortable, loose fitting clothing. Children are encouraged to wear pajamas. - Jewelry must be removed prior to entering the operating room. Rings and piercings that are not removed may be cut off. - The hospital will not accept responsibility for valuables. - Please leave all valuables, including medications, at home the day of surgery. If you are going home after surgery, a licensed special client bus driver must drive you home. - NO public transportation without another adult if you receive anesthesia. - We recommend that an adult stay with you for 24 hours following discharge. - We also recommend that you do not drive, make important decision, drink alcoholic beverages, or take any drugs that were not prescribed by your health care provider for at least 24 hours after your discharge time. For Pediatric surgeries, we recommend two adults accompany the child home. Follow any additional instructions given to you from your surgeon. If you or anyone in your household have experienced Covid symptoms in the past week, please notify your surgeon or the nurse liaison at the phone number below for possible testing. Telephone instructions given to ___PATIENT and asked if any additional questions and then verbalized understanding. Patient advised to call surgeon office or pre surgery nurse liaison [phone] if any additional questions.
[2023-01-11 15:17] VITALS: BMI 39.6
[2023-01-21] VITALS (7 sets, daily range): BP systolic 129–170; BP diastolic 62–99; PULSE 49–82; RESP 14–20; TEMP 36.4–36.5; O2SAT 99–100
--- NOTE | 2023-01-21 06:26 | WPDHPUPDATE1 ---
History and Physical Update Update Date/Time: 01/21/23 06:26 History and Physical has been reviewed, including an updated exam of the patient. There are NO changes in the patient's condition. Risks, benefits, and alternatives have been discussed and questions answered. Patient agrees to proceed with procedure.
[2023-01-21] MEDS: LACTATED RINGERS 1,000 ML 30 ML IV CONT (10:15)
--- NOTE | 2023-01-21 11:40 | WPDANESEPPF ---
Anes - Initial Pre Proc Eval Procedure: Operation Date: 01/21/23 12:00 Proposed Procedures p Cystoscopy, Optical Internal Urethrotomy - Shar Webb MD Date/Time: 01/21/23 11:40 Surgeon: Shar Webb MD Pre Op Diagnosis: ureteral stricture, bph Patient Data Age: 77 Gender: M Height: 1.85 m Weight: 138.2 kg Last Vital Signs Temp 97.7 F 01/21/23 09:49 Pulse 49 L 01/21/23 09:49 Resp 20 01/21/23 09:49 BP 170/62 H 01/21/23 09:49 Pulse Ox 99 01/21/23 09:49 O2 Del Method Room Air 01/21/23 09:49 Allergies Allergy/AdvReac Type Severity Reaction Status Date / Time morphine AdvReac Severe Confusion/Severe Verified 01/21/23 09:58 agitation Home Medications Medication Instructions Recorded Confirmed Type aspirin 81 mg tablet,delayed 81 mg PO DAILY 08/17/19 01/21/23 History release ascorbic acid (vitamin C) 1,000 mg 1,000 mg PO DAILY 07/21/21 01/21/23 History tablet furosemide 20 mg tablet (Lasix) 20 mg PO DAILY 07/21/21 01/21/23 History multivitamin 1 tablet PO DAILY 07/21/21 01/21/23 History tamsulosin 0.4 mg capsule (Flomax) 0.4 mg PO DAILY 07/21/21 01/21/23 History fenofibrate 54 mg tablet 54 mg PO DAILY 08/10/22 01/21/23 History gabapentin 100 mg capsule 100 mg PO HS 08/10/22 01/21/23 History amlodipine 5 mg tablet (Norvasc) 10 mg PO QAM #30 tabs 08/20/22 01/21/23 Rx finasteride 5 mg tablet (Proscar) 5 mg PO QHS #30 tabs 08/20/22 01/21/23 Rx tramadol 50 mg tablet 50 mg PO Q6H PRN pain #20 tabs 11/26/22 01/21/23 Rx potassium chloride 10 mEq See Rx Instructions .Route 01/11/23 01/21/23 Rx tablet,extended release .COMPLEX #90 tabs umeclidinium 62.5 mcg-vilanterol 1 inh inhalation DAILY #180 ea 01/11/23 01/21/23 Rx 25 mcg/actuation powdr for inhalation (Anoro Ellipta) pantoprazole 40 mg tablet,delayed 40 mg PO QAM #90 tabs 01/15/23 01/21/23 Rx release (Protonix) Patient hx anesthesia problems: none Family hx anesthesia problems: none Results Review: All pre-operative results and documents have been reviewed as part of the pre-operative evaluation. [facility] Past Medical History Medical History (Updated 12/18/22 @ 12:14 by Aj Tejeda MD) Benign prostatic hyperplasia Chronic kidney disease Chronic obstructive pulmonary disease CKD (chronic kidney disease) stage 3, GFR 30-59 ml/min COPD (chronic obstructive pulmonary disease) Gross hematuria Hearing loss History of tobacco abuse Impaired fasting glucose Obesity Obstructive sleep apnea on CPAP MELANIE on CPAP Right leg DVT Surgical History Surgical History (Updated 12/16/22 @ 11:21 by Jeaneth Parker MD) History of appendectomy History of bilateral hip arthroplasty History of left nephrectomy History of partial colectomy Sacral nerve stimulator present Family History Family History Sibling Malignant neoplasm of prostate Family history of pancreatic cancer Family history of lung cancer Social History Social History (Updated 12/16/22 @ 11:09 by Zofia Vazquez MA) Social History: Surrogate medical decision maker: Roxana Quintanilla, daughter. Code status: Full code. Smoking packs per day: 1 Smoking cigarettes per day: 20.0 Years smoked: 30 Smoking pack-years: 30.00 Smoking status: Former smoker Tobacco type: cigarettes Second hand tobacco smoke exposure: No Smoking end date: 08/30/03 Alcohol intake: current Drinks per week: 5 Alcohol use details: 5-6 BEERS/WEEK Substance use: never Substance use type: does not use Lack of Transportation: No Lack of Food: Never True Current Housing: I Have Housing Concerned About Future Housing: No Difficulty Paying Gas/Electric Bills: No Difficulty Paying for Meds: No Currently Unemployed: No Education: Master's Degree or Higher Difficulty w/ Childcare or Family Care: No Living arrangements: with family Additional living arrangements c
[2023-01-21] MEDS: ceFAZolin 3 GM/D5W 100 ML 100 ML IVPB (12:05)
[2023-01-21] MEDS: LIDOCAINE HCL 2% GEL UROJET 10 ML PKG MUCOUS MEM (12:49)
--- NOTE | 2023-01-21 12:49 | P.OP_ITS ---
Procedure Note - Detailed Date of Procedure 01/21/23 Pre-op Diagnosis Ureterhal stricture, bph Post-op Diagnosis Same Procedure Performed Optical internal urethrotomy Surgeon Shar Webb MD Anesthesia General Description of Procedure The patient was brought to the operative suite where he was prepped and draped in a routine sterile fashion while in a dorsal lithotomy position after the uneventful administration of systemic sedation by the anesthesia department. 2% Lidocaine was placed in the urethra and allowed to stand for an appropriate period of time. Cystoscopy was undertaken with a 19F rigid cystoscope. He has a moderately constricting stricture of the bulbous urethra. The bladder itself wa s endoscopically normal without foreign body or neoplasm. The bladder mucosa was without hyperemia. There was a single orthotopic ureteral orifice bilaterally with clear reflex of urine. Using the optical urethrotome, I incised the strictured urethra at the 12 o'clock position care taken to avoid injury to the membranous urethra. An 20F Gracia catheter was placed, the bladder was emptied and the patient was taken to the recovery room in good condition. Packing No Pathology None sent Condition Stable Disposition PACU
== END 2023-01-21 14:28 | disposition home or self-care (01) ==
PROVIDERS: PCP Family Medicine; Visit Provider Urology
PROC: (CPT 52276; principal; 2023-01-21 12:00)
DX: N35.912 Unspecified bulbous urethral stricture, male (principal); N40.0 Benign prostatic hyperplasia without lower urinary tract symptoms
CPT/HCPCS: 52276; J0690; J1100; J2405; J2704; J3010; J7120

== ENCOUNTER 2023-02-01 12:54 | Outpatient (CLI) | payer MEDICARE, OTHER, SELFPAY ==
[2023-02-01 13:25] LABS: Partial Thromboplastin Time 33.8 SECONDS (22.3-36.8)
== END 2023-02-01 12:55 | disposition home or self-care (01) ==
LOC: ANHSURGERY 12:57
PROVIDERS: Anesthesiology; PCP Family Medicine; Visit Provider Urology
DX: Z01.818 Encounter for other preprocedural examination (principal); N18.30 Chronic kidney disease, stage 3 unspecified
CPT/HCPCS: 36415; 85610; 85730

== ENCOUNTER 2023-02-04 00:34 | Day surgery (SDC) | payer MEDICARE, OTHER, SELFPAY ==
--- NOTE | 2023-01-27 11:20 | PM.IMHP ---
H&P: HPI History of Present Illness Date/Time: 01/27/23 11:20 Chief Complaint: Urinary retention Narrative: patient well known to me with a remote history of bladder cancer and a chronic PSA elevation with 3 prior negative prostate biopsies. His recent developed any intermittent urinary retention. Initially was found to have a urethral stricture but he also has significant prostatic hyperplasia. Despite urethral dilatation/optical internal urethrotomy he continues to have symptomatic retention with volumes approaching 500 cc. Cystoscopy has shown lateral lobe hyperplasia with a small median lobe. Recent prostate ultrasound demonstrated a volume of 71 g. After discussion of options including minimally invasive surgeries for BPH and TURP he has elected for the latter. He is aware the risk including, but not limited to, adverse cardiopulmonary events, postoperative hematuria, incontinence and persistent voiding symptoms. Review of Systems Review of Systems: All systems reviewed & are unremarkable except as noted in HPI and below PMFSH Past Medical History Medical History (Updated 01/27/23 @ 11:23 by Shar Webb MD) Benign prostatic hyperplasia Chronic kidney disease Chronic obstructive pulmonary disease CKD (chronic kidney disease) stage 3, GFR 30-59 ml/min COPD (chronic obstructive pulmonary disease) Gross hematuria Hearing loss History of tobacco abuse Impaired fasting glucose Obesity Obstructive sleep apnea on CPAP MELANIE on CPAP Right leg DVT Surgical History Surgical History (Updated 12/16/22 @ 11:21 by Jeaneth Parker MD) History of appendectomy History of bilateral hip arthroplasty History of left nephrectomy History of partial colectomy Sacral nerve stimulator present Family History Family History Sibling Malignant neoplasm of prostate Family history of pancreatic cancer Family history of lung cancer Social History Social History (Updated 12/16/22 @ 11:09 by Zofia Vazquez MA) Social History: Surrogate medical decision maker: Roxana Quintanilla, daughter. Code status: Full code. Smoking packs per day: 1 Smoking cigarettes per day: 20.0 Years smoked: 30 Smoking pack-years: 30.00 Smoking status: Former smoker Tobacco type: cigarettes Second hand tobacco smoke exposure: No Smoking end date: 08/30/03 Alcohol intake: current Drinks per week: 5 Alcohol use details: 5-6 BEERS/WEEK Substance use: never Substance use type: does not use Lack of Transportation: No Lack of Food: Never True Current Housing: I Have Housing Concerned About Future Housing: No Difficulty Paying Gas/Electric Bills: No Difficulty Paying for Meds: No Currently Unemployed: No Education: Master's Degree or Higher Difficulty w/ Childcare or Family Care: No Living arrangements: with family Additional living arrangements comments: LIVES WITH DAUGHTER Occupation/Education: retired Additional occupation/education comments: 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 Gender identity (if verbalized by the patient): Male Spiritual care concerns: No Meds Home Medications and Allergies Home Medications Medication Instructions Recorded Confirmed Type aspirin 81 mg tablet,delayed 81 mg PO DAILY 08/17/19 01/21/23 History release ascorbic acid (vitamin C) 1,000 mg 1,000 mg PO DAILY 07/21/21 01/21/23 History tablet furosemide 20 mg tablet (Lasix) 20 mg PO DAILY 07/21/21 01/21/23 History multivitamin 1 tablet PO DAILY 07/21/21 01/21/23 History tamsulosin 0.4 mg capsule (Flomax) 0.4 mg PO DAILY 07/21/21 01/21/23 History fenofibrate 54 mg tablet 54 mg PO DAILY 08/10/22 01/21/23 History gabapentin 100 mg capsule 100 mg PO HS 08/10/22 01/21/23 History amlodipine 5 mg tablet (Norvasc) 10 mg PO QAM #30 tabs 08/20/22 01/21/23 Rx finasteride 5 mg tablet (Proscar) 5 mg PO QHS #30 tabs 08/20/22
[2023-01-29 15:30] VITALS: BMI 39.5
--- NOTE | 2023-01-29 15:54 | PC.NURSE ---
Report to the Outpatient Waiting Room, entrance under the green pavilion located off [facility], at time __10:00AM on date _02/04/23 . Planned Procedure Time: __12:00PM . Time changes happen often and if your time is changed the preop area will call you the afternoon before. - You and your visitor will be asked to self-screen and do not enter if you have any COVID symptoms. - A mask is optional within the hospital at this time. Patients may have clear liquids (water, carbonated beverages, clear teas, apple juice) until 3 hours prior to surgery with a maximum of 20 ounces. - No food from midnight until time of surgery. Take the following medications with a SIP of water the morning of surgery: ___ANORO ELLIPTA, AMLODIPINE, GABAPENTIN DO NOT STOP ANY OF YOUR OTHER PRESCRIPTION MEDICATIONS PRIOR TO SURGERY ?EXCEPT THE FOLLOWING Medications to discontinue per physician ____HOLD ASPIRIN & ALL VITAMINS/SUPPLEMENTS 7 DAYS PRE-OP PER DR PARIKH(PER PATIENT)____ Date to take last dose 01/27/23 Please no make-up, nail belarusian, hairspray, perfume, deodorant, or body powder the day of surgery. No jewelry (including any body piercings) or valuables the day of surgery, leave them at home. Please take a shower or bath the night before, or the morning of, surgery with an antibacterial soap. Wear comfortable, loose fitting clothing. Children are encouraged to wear pajamas. - Jewelry must be removed prior to entering the operating room. Rings and piercings that are not removed may be cut off. - The hospital will not accept responsibility for valuables. - Please leave all valuables, including medications, at home the day of surgery. If you are going home after surgery, a licensed dinkey driver must drive you home. - NO public transportation without another adult if you receive anesthesia. - We recommend that an adult stay with you for 24 hours following discharge. - We also recommend that you do not drive, make important decision, drink alcoholic beverages, or take any drugs that were not prescribed by your health care provider for at least 24 hours after your discharge time. Follow any additional instructions given to you from your surgeon. If you or anyone in your household have experienced Covid symptoms in the past week, please notify your surgeon or the nurse liaison at the phone number below for possible testing. Telephone instructions given to __PATIENT and asked if any additional questions and then verbalized understanding. Patient advised to call surgeon office or pre surgery nurse liaison [phone] if any additional questions.
[2023-02-04] VITALS (11 sets, daily range): BP systolic 114–155; BP diastolic 59–93; PULSE 42–74; RESP 12–169; TEMP 35.5–36.6; O2SAT 96–100
--- NOTE | 2023-02-04 06:16 | WPDHPUPDATE1 ---
History and Physical Update Update Date/Time: 02/04/23 06:16 History and Physical has been reviewed, including an updated exam of the patient. There are NO changes in the patient's condition. Risks, benefits, and alternatives have been discussed and questions answered. Patient agrees to proceed with procedure.
[2023-02-04] MEDS: LACTATED RINGERS 1,000 ML 30 ML IV CONT (07:12)
--- NOTE | 2023-02-04 08:15 | WPDANESEPPF ---
Anes - Initial Pre Proc Eval Procedure: Operation Date: 02/04/23 08:30 Proposed Procedures p Trans Urethral Resection Prostate - Shar Webb MD Date/Time: 02/04/23 08:15 Surgeon: Shar Webb MD Pre Op Diagnosis: BPH with obstruction Patient Data Age: 77 Gender: M Height: 1.85 m Weight: 135.4 kg Last Vital Signs Temp 36.1 C L 02/04/23 06:47 Pulse 74 02/04/23 06:47 Resp 18 02/04/23 06:47 BP 151/80 H 02/04/23 06:47 Pulse Ox 99 02/04/23 06:47 O2 Del Method Room Air 02/04/23 06:47 Allergies Allergy/AdvReac Type Severity Reaction Status Date / Time morphine AdvReac Severe Confusion/Severe Verified 02/04/23 06:53 agitation/AGRESSIVE Home Medications Medication Instructions Recorded Confirmed Type aspirin 81 mg tablet,delayed 81 mg PO DAILY 08/17/19 01/29/23 History release ascorbic acid (vitamin C) 1,000 mg 1,000 mg PO DAILY 07/21/21 01/29/23 History tablet furosemide 20 mg tablet (Lasix) 20 mg PO QAM 07/21/21 01/29/23 History multivitamin 1 tablet PO DAILY 07/21/21 01/29/23 History tamsulosin 0.4 mg capsule (Flomax) 0.4 mg PO DAILY 07/21/21 01/29/23 History fenofibrate 54 mg tablet 54 mg PO DAILY 08/10/22 01/29/23 History gabapentin 100 mg capsule 100 mg PO HS 08/10/22 01/29/23 History amlodipine 5 mg tablet (Norvasc) 10 mg PO QAM #30 tabs 08/20/22 01/29/23 Rx finasteride 5 mg tablet (Proscar) 5 mg PO QHS #30 tabs 08/20/22 01/29/23 Rx tramadol 50 mg tablet 50 mg PO Q6H PRN pain #20 tabs 11/26/22 01/29/23 Rx potassium chloride 10 mEq See Rx Instructions .Route 01/11/23 01/29/23 Rx tablet,extended release .COMPLEX #90 tabs pantoprazole 40 mg tablet,delayed 40 mg PO QAM #90 tabs 01/15/23 01/29/23 Rx release (Protonix) hydrocodone 5 mg-acetaminophen 325 1 - 2 tablet PO Q6H PRN pain #20 01/21/23 01/29/23 Rx mg tablet tabs umeclidinium 62.5 mcg-vilanterol 1 inh inhalation QAM 01/29/23 01/29/23 History 25 mcg/actuation powdr for inhalation (Anoro Ellipta) Patient hx anesthesia problems: none Family hx anesthesia problems: none Results Review: All pre-operative results and documents have been reviewed as part of the pre-operative evaluation. [facility] Past Medical History Medical History Benign prostatic hyperplasia Chronic kidney disease Chronic obstructive pulmonary disease CKD (chronic kidney disease) stage 3, GFR 30-59 ml/min COPD (chronic obstructive pulmonary disease) Gross hematuria Hearing loss History of tobacco abuse Impaired fasting glucose Obesity Obstructive sleep apnea on CPAP MELANIE on CPAP Right leg DVT Surgical History Surgical History History of appendectomy History of bilateral hip arthroplasty History of left nephrectomy History of partial colectomy Sacral nerve stimulator present Family History Family History Sibling Malignant neoplasm of prostate Family history of pancreatic cancer Family history of lung cancer Social History Social History Social History: Surrogate medical decision maker: Roxana Quintanilla, daughter. Code status: Full code. Smoking packs per day: 1 Smoking cigarettes per day: 20.0 Years smoked: 63 Smoking pack-years: 63.00 Smoking status: Former smoker Tobacco type: cigarettes Second hand tobacco smoke exposure: No Smoking end date: 02/28/04 Alcohol intake: current Drinks per week: 3 Alcohol use details: 5-6 BEERS/WEEK Substance use: never Substance use type: does not use Lack of Transportation: No Lack of Food: Never True Current Housing: I Have Housing Concerned About Future Housing: No Difficulty Paying Gas/Electric Bills: No Difficulty Paying for Meds: No Currently Unemployed: No Education: Master's Degree or [employer]
[2023-02-04] MEDS: ceFAZolin 3 GM/D5W 100 ML 100 ML IVPB (09:04)
[2023-02-04] MEDS: LIDOCAINE HCL 2% GEL UROJET 10 ML PKG MUCOUS MEM (09:24)
--- NOTE | 2023-02-04 10:31 | P.OP_ITS ---
Procedure Note - Detailed Date of Procedure 02/04/23 Pre-op Diagnosis BPH with obstruction Post-op Diagnosis Same Procedure Performed TURP Surgeon Shar Webb MD Anesthesia General Description of Procedure The patient was brought to the operative suite where he is prepped and draped in routine sterile fashion while in the dorsal lithotomy position after the uneventful induction of a general LMA anesthetic. A 27 Lao resectoscope sheath was placed into his bladder. He had no urethral strictures. The patient had trilobar hyperplasia with a moderate median lobe. The bladder itself was endoscopically normal, showing no mucosal hyperemia, intravesical neoplasm or foreign bodies. There was a single, orthotopic ureteral orifice bilaterally. These orifices were identified and preserved throughout the remainder of the procedure. Attention was first turned to resection of the median lobe. This resection was undertaken from the bladder neck to the verumontanum and carried out until the transverse fibers of the bladder neck were identified. The left lateral lobe was then resected starting at the 6 o'clock position, working counter clockwise to the 12 o'clock position. Again, resection was carried out from the bladder neck to the verumontanum until the capsular fibers of the prostate were identified. The right lateral lobe was resected in a similar fashion starting at the 6 o'clock position working clockwise to the 12 o'clock position and carried out until the capsular fibers of the prostate were identified. Apical tissue was then circumferentially resected. All chips were evacuated from the bladder using an Boombotix evacuator. Hemostasis was obtained with electric cautery. The ureteral orifices were again inspected and found to be without injury. Estimated blood loss throughout this procedure was 50cc. The patient was taken to recovery room having tolerated this well. Drains Yes Pathology Yes Complications No immediate complications Condition Stable
--- NOTE | 2023-02-04 11:34 | ADMGEN ---
This patient, Jason Daigle, was admitted to [facility] Surg Room 330-02. Patient/family oriented to hospital policies and general routines including ID bracelet, bed and alarms, visiting hours, pain management, procedures, bathroom and other care routines, personal items, smoking policy, room service/diet, and visiting hours. Information on how to activate the Rapid Response Team has been discussed. Patient/Family are encouraged to report perceived risks to care and to ask questions if they do not understand what they are told or what they should do.
[2023-02-04] MEDS: HYDROcodone/acetaminophen (*CRX) 5-325 MG TABLET 1 TAB PO (13:06)
[2023-02-04] MEDS: HYOSCYAMINE SULFATE 0.125 MG TABLET SUBLINGUAL (13:43)
[2023-02-04] MEDS: ceFAZolin 1 GM/NS 50 ML 1 GM/50 ML BAG IVPB (16:26)
[2023-02-04] MEDS: DOCUSATE SODIUM 100 MG CAPSULE PO (16:27)
[2023-02-04] MEDS: GABAPENTIN 100 MG CAPSULE PO (20:09)
[2023-02-04] MEDS: MELATONIN 5 MG TABLET 10 MG PO (22:20)
[2023-02-05] MEDS: ceFAZolin 1 GM/NS 50 ML 1 GM/50 ML BAG IVPB (00:07)
[2023-02-05 00:45] VITALS: BP 158/65; PULSE 53; RESP 18; TEMP 36.4; O2SAT 100
[2023-02-05 05:38] VITALS: BP 151/84; PULSE 51; RESP 18; TEMP 36.3; O2SAT 96
[2023-02-05 05:56] LABS: Hematocrit 40.2 % (42.0-52.0); Hemoglobin 13.1 g/dL (14.0-18.0)
[2023-02-05 06:10] LABS: Anion Gap 4 mmol/L (8-16); Blood Urea Nitrogen 19 mg/dL (9-20); Calcium 9.2 mg/dL (8.4-10.2); Carbon Dioxide 33 mmol/L (22-30); Chloride 102 mmol/L (98-107); Estimated CRCL calculation 56 ml/min; Estimated Glomerular Filt Rate 49; Glucose 130 mg/dL (65-110); Potassium 4.1 mmol/L (3.4-5.0); Sodium 139 mmol/L (137-145)
--- NOTE | 2023-02-05 07:06 | WPDUROPN2 ---
Progress Note: A&P Assessment and Plan (1) Benign prostatic hyperplasia with lower urinary tract symptoms: Code(s): N40.1 - Benign prostatic hyperplasia with lower urinary tract symptoms Status: Acute Assessment and Plan: Doing well POD #1 Stop CBI / voiding trial later this morning if urine remains clear Subjective Subjective Date/Time Seen: 02/05/23 07:06 Interval history: Comfortable, urine clear Review of Systems Cardiovascular: Cardiovascular: Denies chest pain, Denies lightheadedness, Denies palpitations and Denies dyspnea Respiratory: Respiratory: Denies dyspnea Gastrointestinal: Gastrointestinal: Denies diarrhea, Denies nausea and Denies vomiting Genitourinary: Genitourinary: Denies hematuria and Denies dysuria Endocrine: Endocrine: Denies palpitations Exam Const: General: no acute distress Resp: Effort & Inspection: normal respiratory effort GI: Inspection: non-distended GI Palp: No abdominal tenderness and No Guarding due to palpation present (GI) Auscultation: normal bowel sounds Urinary Catheter: Urinary Catheter: patent and draining and urine clear Objective Data Vital Signs Vital Signs: Vital Signs - 24 hr 02/04/23 10:08 02/04/23 10:20 02/04/23 10:35 Temperature 97.9 F Pulse Rate 60 65 45 L Respiratory Rate 18 14 16 Blood Pressure 154/73 H 152/65 H 120/93 H Pulse Oximetry 99 97 96 Oxygen Delivery Simple Face Mask Room Air Room Air Oxygen Flow Rate 8 02/04/23 10:50 02/04/23 11:00 02/04/23 11:55 Temperature 96 F L Pulse Rate 58 L 48 L 42 L Respiratory Rate 14 12 169 H Blood Pressure 138/68 155/67 H 142/72 H Pulse Oximetry 97 96 98 Oxygen Delivery Room Air Room Air Oxygen Flow Rate 02/04/23 12:40 02/04/23 12:00 02/04/23 13:40 Temperature 96 F L 96.4 F L Pulse Rate 48 L 48 L Respiratory Rate 18 18 Blood Pressure 143/73 H 114/59 L Pulse Oximetry 97 97 Oxygen Delivery Room Air Oxygen Flow Rate 02/04/23 16:00 02/04/23 20:39 02/04/23 23:29 Temperature 96 F L 97.7 F Pulse Rate 47 L 52 L Respiratory Rate 18 18 Blood Pressure 144/74 H 141/59 H Pulse Oximetry 100 97 Oxygen Delivery Room Air Oxygen Flow Rate 02/05/23 00:45 02/05/23 05:38 Temperature 97.5 F L 97.3 F L Pulse Rate 53 L 51 L Respiratory Rate 18 18 Blood Pressure 158/65 H 151/84 H Pulse Oximetry 100 96 Oxygen Delivery Oxygen Flow Rate Intake/Output Intake/Output: Intake & Output 02/02/23 02/03/23 02/04/23 02/05/23 23:59 23:59 23:59 23:59 Intake Total 55734 Output Total 08738 4100 Balance -920 -4100 Meds/Results Medications: Active Medications Generic Name Dose Route Start Last Admin Trade Name Freq PRN Reason Stop Dose Admin Hydrocodone Bitart/Acetaminophen 1 tab 02/04/23 11:06 02/04/23 13:06 Hydrocodone/Acetaminophen (*Crx) 5-325 Mg Tablet PO 1 tab Q4H PRN Administration Pain Rated 1-6 Amlodipine Besylate 10 mg 02/05/23 09:00 Amlodipine Besylate 5 Mg Tablet PO QAM TEJAS Cephalexin HCl 500 mg 02/05/23 09:00 Cephalexin 500 Mg Capsule PO QID TEJAS Docusate Sodium 100 mg 02/04/23 17:00 02/04/23 16:27 Docusate Sodium 100 Mg Capsule PO 100 mg BID TEJAS Administration Fentanyl Citrate 25 mcg 02/04/23 08:16 Fentanyl Citrate Inj (*Crx) 100 Mcg/2 Ml Vial IV PUSH Q2M PRN Pain Furosemide 20 mg 02/05/23 09:00 Furosemide 20 Mg Tablet PO QAM TEJAS Gabapentin 100 mg 02/04/23 21:00 02/04/23 20:09 Gabapentin 100 Mg Capsule PO 100 mg HS TEJAS Administration Hyoscyamine 0.125 mg 02/04/23 11:06 02/04/23 13:43 Hyoscyamine Sulfate 0.125 Mg Tablet SUBLINGUAL 0.125 mg Q6H PRN Administration Bladder Spasm Melatonin 10 mg 02/04/23 22:00 02/04/23 22:20 Melatonin 5 Mg Tablet PO 10 mg HS TEJAS Administration Miscellaneous Information 0 each 02/04/23 00:01 Fenofibrate 54 Mg Tab Non Form. Please Hold Or Change To Formulary Stre
[2023-02-05] MEDS: UMECLIDINIUM/VILANTEROL 62.5-25 MCG ELLIPTA 1 PUFF INHALATION (08:28)
[2023-02-05] MEDS: PANTOPRAZOLE 40 MG TABLET PO (08:46)
[2023-02-05] MEDS: FUROSEMIDE 20 MG TABLET PO (08:46)
[2023-02-05] MEDS: DOCUSATE SODIUM 100 MG CAPSULE PO (08:46)
[2023-02-05] MEDS: amLODIPine BESYLATE 5 MG TABLET 10 MG PO (08:46)
[2023-02-05] MEDS: CEPHALEXIN 500 MG CAPSULE PO (08:46)
[2023-02-05] MEDS: POTASSIUM CHLORIDE 10 MEQ TABLET.ER PO (08:46)
[2023-02-05] MEDS: FENOFIBRATE,MICRONIZED 48 MG TABLET PO (08:48)
--- NOTE | 2023-02-05 09:36 | PC.NURSE ---
CBI off per MD this AM. Urine in tube noted to be dark red with long streaks of blood. CBI on at moderate rate. Pt offers no complaints. Will notify .
--- NOTE | 2023-02-05 09:38 | WPDANESPN ---
Anes - Prog Note Post-Op Date/Time: 02/05/23 09:38 Cardiovascular status: normal Respiratory status: normal Airway patency: baseline Mental status: baseline Post-Op hydration status: normal Vital Signs: Last Vital Signs Temp 36.3 C L 02/05/23 05:38 Pulse 51 L 02/05/23 05:38 Resp 18 02/05/23 05:38 BP 151/84 H 02/05/23 05:38 Pulse Ox 96 02/05/23 05:38 O2 Del Method Room Air 02/04/23 23:29 O2 Flow Rate 8 02/04/23 10:08 Pain Score (VAS): 0 I/O: Intake & Output 02/04/23 02/05/23 02/05/23 23:59 07:59 15:59 Intake Total 3290 200 Output Total 5250 4100 Balance -1960 -4100 200 Laboratory Tests 02/05/23 05:35 02/05/23 05:35 02/05/23 05:35 Hgb 13.1 L Hct 40.2 L Sodium 139 Potassium 4.1 Chloride 102 Carbon Dioxide 33 H Anion Gap 4 L BUN 19 Creatinine 1.40 H Estim Creat Clear Calc 56 Estimated GFR 49 L Glucose 130 H Calcium 9.2 Post-procedural complaints: none Patient Feedback: Patient satisfied with anesthetic care.
--- NOTE | 2023-02-05 12:37 | PM.DS ---
DS: Admitting Diagnosis Discharge Date 02/05/2023 Admitting Diagnosis BPH, urinary retention DS: Summary Hospital Course Hospital Course: This patient with longstanding prostatism refractory for medical management was admitted on the morning of his planned TURP. The procedure was undertaken on that same day in an uneventful fashion. His post-operative course was, likewise, uneventful. On the evening of the procedure he was tolerating a diet. On POD#1 his urine was clear on CBI. The urine remained clear and, therefore, the catheter was removed late morning. The patient was observed for several hours, until he demonstrated he could void effectively without significant hematuria. He was discharged with careful instruction on limiting physical activity x2 weeks and plans to f/ in 2-3 weeks. At discharge he was comfortable and tolerating a diet. Time Spent with Patient Time attestation: Total time spent providing and/or coordinating discharge services: DS: Data Data Completed and Pending Completed studies during hospitalization: Pending at discharge 02/04/23 09:58 Surgical [PTH] Routine Labs on day of discharge: Labs from last 24 hours 02/05/23 05:35 Hgb 13.1 L Hct 40.2 L Sodium 139 Potassium 4.1 Chloride 102 Carbon Dioxide 33 H Anion Gap 4 L BUN 19 Creatinine 1.40 H Estim Creat Clear Calc 56 Estimated GFR 49 L Glucose 130 H Calcium 9.2 Discharge Plan Discharge Patient Disposition: Home, Self-Care Discharge Instructions: 1) Activity: No lifting/straining >15lbs. x2 weeks. 2) Diet: Resume normal pre-admission diet. 3) Follow-up: 2-3 weeks / call office for appointment ([phone]). Stand Alone Forms: General Discharge Instructions Discharge Orders: Discharge Order (Routine); Ordered 02/05/23 Ordered By: Shar Webb Discharge Medications: New hydrocodone-acetaminophen 5-325 mg tablet 1 - 2 tablet PO Q6H PRN (Reason: pain) Qty: 20 0RF cephalexin 500 mg capsule 500 mg PO Q8H Qty: 9 0RF docusate sodium [Colace] 100 mg capsule 100 mg PO DAILY Qty: 30 0RF Continued ascorbic acid (vitamin C) 1,000 mg tablet 1,000 mg PO DAILY furosemide [Lasix] 20 mg tablet 20 mg PO QAM multivitamin Tablet 1 tablet PO DAILY hydrocodone-acetaminophen 5-325 mg tablet 1 - 2 tablet PO Q6H PRN (Reason: pain) Qty: 20 0RF Anoro Ellipta 62.5-25 mcg/actuation blister with device 1 inh inhalation QAM gabapentin 100 mg capsule 100 mg PO HS fenofibrate 54 mg tablet 54 mg PO DAILY amlodipine [Norvasc] 5 mg Tablet 10 mg PO QAM Qty: 30 0RF tramadol 50 mg tablet 50 mg PO Q6H PRN (Reason: pain) Qty: 20 0RF potassium chloride 10 mEq tablet extended release See Rx Instructions .ROUTE .COMPLEX Qty: 90 0RF Dose Instruction: TAKE 1 TABLET BY MOUTH DAILY Rx Instructions: TAKE 1 TABLET BY MOUTH DAILY pantoprazole [Protonix] 40 mg tablet,delayed release (DR/EC) 40 mg PO QAM Qty: 90 1RF Held aspirin 81 mg tablet,delayed release (DR/EC) 81 mg PO DAILY Hold Instructions: Resume on 02/10/23. Discontinued tamsulosin [Flomax] 0.4 mg capsule 0.4 mg PO DAILY finasteride [Proscar] 5 mg Tablet 5 mg PO QHS Qty: 30 0RF
--- NOTE | 2023-02-05 12:46 | PC.NURSE ---
Md here perviously and [place] removed. Pt able to void. Urine red. Offers no complaints at this time.
== END 2023-02-05 13:46 | disposition home or self-care (01) ==
LOC: ANHSURGERY 06:31 → ANH3MEDSUR 11:09
PROVIDERS: PCP Family Medicine; Visit Provider Urology
PROC: 0VT08ZZ Resection of Prostate, Via Natural or Artificial Opening Endoscopic (ICD-10-PCS; CPT 52601; principal; 2023-02-04 08:30)
DX: N40.1 Benign prostatic hyperplasia with lower urinary tract symptoms (principal); R33.8 Other retention of urine; N13.8 Other obstructive and reflux uropathy; N18.30 Chronic kidney disease, stage 3 unspecified; J44.9 Chronic obstructive pulmonary disease, unspecified; G47.33 Obstructive sleep apnea (adult) (pediatric); Z86.718 Personal history of other venous thrombosis and embolism; E66.9 Obesity, unspecified; Z68.39 Body mass index [BMI] 39.0-39.9, adult; Z85.51 Personal history of malignant neoplasm of bladder; Z90.49 Acquired absence of other specified parts of digestive tract; Z90.5 Acquired absence of kidney; Z87.891 Personal history of nicotine dependence; Z79.82 Long term (current) use of aspirin; Z79.891 Long term (current) use of opiate analgesic
CPT/HCPCS: 52601; 36415; 80048; 85014; 85018; 88305; 94640; A9270; C1758; J0690; J1100; J2405; J2704; J3010; J7120

== ENCOUNTER 2023-02-18 11:25 | Outpatient (CLI) | payer MEDICARE, OTHER, SELFPAY ==
--- NOTE | ~2023-02-18 | XR_ITS ---
XR knee LT min 4V 02/18/2023 12:06 Indication: Left knee pain. Procedure: 4 views left knee Comparison: 10/09/2019 Findings: There is mild tricompartment osteoarthritis of the left knee. No fracture, subluxation or d islocation. No significant joint effusion. No foreign bodies. 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 Reviewed, dictated and finalized at location L. 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
--- NOTE | ~2023-02-18 | XR_ITS ---
EXAM: XR finger 2nd LT min 2V DATE: 02/18/2023 12:05 HISTORY: M79.645 - Pain in left index finger, distal. NKI . COMPARISON: None available. FINDINGS: Normal mineralization. No fracture or dislocation. No lytic or blastic lesion. Mild polyar ticular osteoarthritis. No erosion or periosteal change. Soft tissues within normal limits. IMPRESSION: No acute osseous finding in the left second finger. Reviewed, dictated and finalized at location K.
== END 2023-02-18 11:26 | disposition home or self-care (01) ==
PROVIDERS: PCP Family Medicine; Visit Provider Physician Assistant
DX: M25.562 Pain in left knee (principal); M17.10 Unilateral primary osteoarthritis, unspecified knee; M79.645 Pain in left finger(s); M17.12 Unilateral primary osteoarthritis, left knee
CPT/HCPCS: 73140; 73564

== ENCOUNTER 2023-04-27 08:29 | Outpatient (CLI) | payer MEDICARE, OTHER, SELFPAY ==
--- NOTE | 2023-04-30 14:11 | WPDSLEEPSTUD ---
Sleep Study Date of Study: 04/27/23 Ordering Provider: KRISTINE Lorenzo Interpreting Physician: Mary Jane Baker MD Sleep Study Type: Polysomnogram Height: 1.85 m Weight: 136.078 kg Body Mass Index: 39.5 Neck Circumference (inches): 21 [place]: 3 Reason for Sleep Study Known obstructive sleep apnea, re-evaluation for Inspire, hypoglossal nerve stimulator. Last baseline study was 2004. * 05/23/20 CPAP titration - optimal pressure 12 cm of water pressure with a large ResMed AirFit F20 full face mask.? * 2004 - AHI 17.5 Sleep History Jason Daigle is an 78-year-old man with obstructive sleep apnea diagnosed in 2004. He has used CPAP, currently is using a loaner because his machine broke over 6 months ago. He has COPD, uses Anoro inhaler. He frequently awakens from sleep feeling short of breath. He rarely awakens at night with heartburn, belching or coughing. He always snores loudly enough that others complain about it. He constantly has difficulty sleeping with a cold. He occasionally wakes up gasping for breath at night. He occasionally has breathing problems at night observed by others. He rarely notices his heart pounding or beating irregularly night. He frequently falls asleep during the day but never falls asleep involuntarily or while driving. He does not have loss of muscle tone with strong emotion. He does not have daytime difficulties due to excessive sleepiness. He occasionally feels paralyzed waking or falling asleep. He occasionally has vivid dreamlike scenes on waking or falling asleep. Does not feel afraid to go to sleep. He occasionally has nightmares. He constantly remembers his dreams. He occasionally has racing thoughts. He never feels sad or depressed. He rarely feels anxiety. He occasionally has muscular tension, occasionally notices parts of his body jerking and he occasionally kicks at night. He always has crawling aching feelings in his legs. He frequently has leg pain during the night. He does not have morning jaw pain, nor does he grind his teeth during sleep. He occasionally is bothered by pain during the day and occasionally awakened by pain at night. He occasionally wakes up feeling stiff in the morning. He frequently wakes up with sore achy muscles and frequently wakes up with pain in the neck and spine joints. He has memory problems, he takes antacids regularly and he has nightmares. His normal bedtime is 10:00 p.m. falling asleep within 1/2 hour. He wakes 2-3 times during the night to go to the bathroom. On average, he stays awake for an hour when he wakes during the night. His normal wake up time is 7:30 a.m.. He keeps the same schedule on weekends. He does not take naps in the afternoon or evening. A short nap lasting 10 or 15 minutes is not refreshing. Most of the time he feels adequate when he wakes in the morning. He feels better in the afternoon compared to other times a day. Habits: He quit tobacco 20 years ago. Caffeine: 2 cups a day. Alcohol 2 beverages on Wednesday night. Recreational substances: None PMFSH Past Medical History Medical History Benign prostatic hyperplasia Chronic kidney disease Chronic obstructive pulmonary disease CKD (chronic kidney disease) stage 3, GFR 30-59 ml/min COPD (chronic obstructive pulmonary disease) Gross hematuria Hearing loss History of tobacco abuse Impaired fasting glucose Obesity Obstructive sleep apnea on CPAP MELANIE on CPAP Right leg DVT Surgical History Surgical History H/O left nephrectomy History of appendectomy History of bilateral hip arthroplasty History of left nephrectomy History of partial colectomy Hx of transurethral resection of prostate Sacral nerve stimulator present Family History Family History Sibling Malignant neoplasm of prostate Family hi
[2023-05-06 14:08] VITALS: BMI 39.5
== END 2023-04-28 07:49 | disposition home or self-care (01) ==
LOC: ANHCSM 08:31
PROVIDERS: PCP Family Medicine; Visit Provider Physician Assistant
DX: G47.33 Obstructive sleep apnea (adult) (pediatric) (principal); Z99.89 Dependence on other enabling machines and devices
CPT/HCPCS: 95810

== ENCOUNTER 2023-06-16 08:22 | Outpatient (CLI) | payer MEDICARE, OTHER, SELFPAY ==
[2023-06-16 09:45] LABS: Albumin Level 4.1 g/dL (3.5-5.1); Anion Gap 7 mmol/L (8-16); Blood Urea Nitrogen 20 mg/dL (9-20); Calcium 9.3 mg/dL (8.4-10.2); Carbon Dioxide 28 mmol/L (22-30); Chloride 104 mmol/L (98-107); Estimated Glomerular Filt Rate 45; Glucose 108 mg/dL (65-110); Phosphorus 3.5 mg/dL (2.5-4.5); Potassium 3.7 mmol/L (3.4-5.0); Sodium 139 mmol/L (137-145)
[2023-06-16 09:59] LABS: Parathyroid Intact 29.2 pg/mL (7.5-53.5)
[2023-06-16 13:45] LABS: Creatinine Urine 108.3 mg/dL; Total Protein Urine Random 22 mg/dL
== END 2023-06-16 08:23 | disposition home or self-care (01) ==
LOC: ANHLAB 08:24
PROVIDERS: PCP Family Medicine; Visit Provider Internal Medicine Nephrology
DX: N25.81 Secondary hyperparathyroidism of renal origin (principal); N18.31 Chronic kidney disease, stage 3a; E55.9 Vitamin D deficiency, unspecified; Z90.5 Acquired absence of kidney
CPT/HCPCS: 36415; 80069; 82306; 82570; 83970; 84156

== ENCOUNTER 2023-07-26 19:47 | Inpatient (IN) | payer MEDICARE, OTHER, SELFPAY ==
--- NOTE | ~2023-07-26 | CT_ITS ---
Non-contrast CT scan of the Abdomen and Pelvis Clinical indication: Abdominal pain, hematuria Technique: 2.5 mm axial scans were obtained through the abdomen and pelvis without intravenous or or al contrast. Dose reduction technique was used on this scan by utilizing automated exposure control a nd iterative reconstruction technique. The dose-length product (DLP) was 1712.51 mGy-cm. COMPARISON: 11/13/2022 Findings: Images through the lung bases reveal no abnormalities. Right renal cysts are present. No right hydronephrosis. Patient is status post left nephrectomy. The liver, spleen, pancreas, gallbladder, and adrenals appear normal. There are atherosclerotic calci fications of the aorta. There is no evidence of bowel obstruction. Images through the pelvis were performed. There is no evidence of ascites or lymphadenopathy. Urinary bladder unremarkable aside from small bubbles of air within it. There is streak artifact in the pelv is from bilateral hip arthroplasty. No definite pelvic mass seen. Impression: No acute abnormality. Status post left nephrectomy. Right renal cysts. Reviewed, dictated and finalized at [facility]. [employer] TEAM LEAD Impression: No acute abnormality. Status post left nephrectomy. Right renal cysts.
--- NOTE | ~2023-07-26 | XR_ITS ---
XR chest 1V portable 07/29/2023 13:04 Indication: Shortness of breath Procedure: AP portable chest Comparison: Comparison to multiple prior studies sequentially, with oldest reviewed study dated 04/16. Findings: Cardiomegaly. Pulmonary vascular congestion. No focal pneumonia, edema, significant effusio n or pneumothorax. Spinal stimulator leads overlie the midthoracic spine. Impression: 1: Cardiomegaly with pulmonary vascular congestion. Reviewed, dictated and finalized at location L. R MACHINE CUTTER Impression: 1: Cardiomegaly with pulmonary vascular congestion.
--- NOTE | ~2023-07-26 | CT_ITS ---
CT head without contrast Indication: Altered mental status COMPARISON: 11/13/2022 Technique: Serial scans were obtained through the brain without the administration of contrast. Dose reduction technique was used on this scan by utilizing automated exposure control and iterative recon struction technique. The dose-length product (DLP) was 756.67 mGy-cm. Findings: There is no evidence of intracranial hemorrhage, mass lesion, or acute infarct. The ventri cles and subarachnoid spaces are dilated, consistent with mild to moderate atrophy. Low attenuation regions are seen within the periventricular white matter bilaterally, likely representing changes fro m chronic microvascular ischemic disease. There is no evidence of edema, mass effect or midline shif t. The visualized paranasal sinuses and mastoid air cells are clear. Impression: No intracranial hemorrhage, mass, or acute infarct. Atrophy and chronic white matter changes, as above. Reviewed, dictated and finalized at location M. BER GASFITTER Impression: No intracranial hemorrhage, mass, or acute infarct. Atrophy and chronic white matter changes, as above.
--- NOTE | ~2023-07-26 | US_ITS ---
EXAMINATION: US venous doppler [facility] DATE: 07/27/2023 19:49 INDICATION: swelling . TECHNIQUE: Grayscale images without and with compression and Doppler images of the bilateral lower ex tremity veins were obtained. COMPARISON: None FINDINGS: The right common femoral vein, profunda (deep) femoral vein, femoral vein, popliteal vein, peroneal v ein, posterior tibial veins, vein, and greater saphenous vein are patent. The left common femoral vein, profunda (deep) femoral vein, femoral vein, popliteal vein, peroneal v ein, posterior tibial veins, and greater saphenous vein are patent. IMPRESSION: Patent bilateral lower extremity veins. No evidence of deep venous thrombosis. Reviewed, dictated and finalized at location K. ODE [employer] T[employer]BE ASSEMBLER
[2023-07-26 20:09] VITALS: BP 150/63; PULSE 95; RESP 20; TEMP 36.9; O2SAT 95
[2023-07-26 23:28] VITALS: BP 168/97; PULSE 92; RESP 16; O2SAT 97
[2023-07-27] VITALS (7 sets, daily range): BP systolic 96–158; BP diastolic 62–78; PULSE 83–105; RESP 16–21; TEMP 36.7–37.2; O2SAT 93–99; BMI 40.7
--- NOTE | 2023-07-27 | ECHO_ITS ---
Patient Info Name: Jason Daigle Age: 78 years : 1945 Gender: Male Ht: 73 in Wt: 305 lbs BSA: 2.73 m2 HR: 98 bpm Heart Rhythm: Atrial Fibrillation Technical Quality: Good Exam Date: 07/27/2023 1:36 PM Exam Location: Echo Lab Patient Status: Inpatient Admit Date: 07/27/2023 Staff Ordering Physician: Anastacio Jaffe APRN Quitline Counselor: Vesna Cruz RDCS Attending Provider: Mari Bergman DO Referring Physician: Ld DICKEY; Exam Type: CA echo doppler color flow Study Info Indications - new onset a fib Complete two-dimensional, color flow and Doppler transthoracic echocardiogram is performed. Summary 1. Complete two-dimensional, color flow and Doppler transthoracic echocardiogram is performed. 2. Left ventricular chamber dimension is normal. 3. Left ventricular systolic function is normal, estimated at 55-60%. 4. There is mild concentric increased left ventricular wall thickness. 5. The left ventricular diastolic function is abnormal. 6. E/e' 16 is elevated. 7. Atrial fibrillation. 8. Left atrial chamber dimension is moderately enlarged. 9. Right atrial chamber dimension is mildly enlarged. 10. The mitral valve has moderately calcified annulus. 11. There is mild to moderate mitral valve regurgitation. 12. There is trace tricuspid valve regurgitation. 13. Mild pulmonary hypertension, estimated pulmonary arterial systolic pressure is 41 mmHg. Left Ventricle Atrial fibrillation. E/e' 16 is elevated. Left ventricular chamber dimension is normal. Left ventricular systolic function is normal, estimated at 55-60%. There is mild concentric increased left ventricular wall thickness. The left ventricular diastolic function is abnormal. Right Ventricle Right ventricular systolic function is normal and with normal TAPSE 2.0 cm. Right ventricular chamber dimension is normal. Left Atria Left atrial chamber dimension is moderately enlarged. Right Atria Right atrial chamber dimension is mildly enlarged. Aortic Valve The aortic valve is trileaflet. There is no aortic valve stenosis. There is no aortic valve regurgitation. Pulmonic Valve There is no pulmonic regurgitation. Mitral Valve The mitral valve has moderately calcified annulus. There is no mitral valve stenosis. There is mild to moderate mitral valve regurgitation. Tricuspid Valve There is trace tricuspid valve regurgitation. Mild pulmonary hypertension, estimated pulmonary arterial systolic pressure is 41 mmHg. Pericardium/Pleural There is no pericardial effusion. Inferior Vena Cava Normal inferior vena cava with >50% collapse upon inspiration consistent with normal right atrial pressure, 5 mmHg. Aorta The aortic root size at the sinus of Valsalva is normal. Left Ventricular Outflow Tract Name Value Normal LVOT 2D LVOT Diameter 1.8 cm LVOT Doppler LVOT Peak Gradient 3 mmHg LVOT Mean Gradient 2 mmHg LVOT VTI 18 cm LVOT VTI/AV VTI Ratio 0.9 LVOT Stroke Volume 44 ml LVOT CO 4.3 l/min LVOT CI 1.6
--- NOTE | 2023-07-27 01:49 | ECG_ITS ---
Measurements Intervals [place] Rate: 100 P: AR: 0 QRS: 13 QRSD: 141 T: 41 QT: 355 QTc: 459 Interpretive Statements ATRIAL FIBRILLATION WITH RAPID VENTRICULAR RESPONSE RIGHT BUNDLE BRANCH BLOCK ABNORMAL ECG COMPARED TO ECG 11/13/2022 07:25:10 ATRIAL FIBRILLATION NOW PRESENT Electronically Signed On 07-27-2023 6:46:34 ENVIRONMENTAL TECH by Luke Lees D.O.
[2023-07-27 02:04] LABS: Hematocrit 46.9 % (42.0-52.0); Hemoglobin 15.1 g/dL (14.0-18.0); Mean Corpuscular HGB Conc 32.2 g/dl (32-36); Mean Corpuscular Hemoglobin 29.5 pg (26-34); Mean Corpuscular Volume 91.6 fl (80-100); Mean Platelet Volume 9.3 fl (7.4-10.4); Platelet Count Result 264 k/mm3 (150-375); Red Blood Count 5.12 M/mm3 (4.6-6.20); Red Cell Distribution Width 14.6 % (11.5-14.5); White Blood Count 29.3 K/mm3 (4.5-10.0)
[2023-07-27] MEDS: ONDANSETRON INJ 4 MG/2 ML VIAL IV PUSH (02:12)
[2023-07-27] MEDS: SODIUM CHLORIDE 0.9% IV 1,000 ML 999 ML IV CONT (02:12)
[2023-07-27 02:17] LABS: Alanine Aminotransferase 20 U/L (6-50); Albumin Level 4.3 g/dL (3.5-5.1); Alkaline Phosphatase 72 U/L (38-126); Anion Gap 12 mmol/L (8-16); Aspartate Amino Transferase 21 U/L (17-59); Bilirubin,Total 1.3 mg/dL (0.2-1.3); Blood Urea Nitrogen 15 mg/dL (9-20); Calcium 9.3 mg/dL (8.4-10.2); Carbon Dioxide 25 mmol/L (22-30); Chloride 97 mmol/L (98-107); Estimated CRCL calculation 56 ml/min; Estimated Glomerular Filt Rate 49; Glucose 116 mg/dL (65-110); Potassium 3.6 mmol/L (3.4-5.0); Sodium 134 mmol/L (137-145)
[2023-07-27 02:24] LABS: Band Neutrophils Percent 2 % (0-6); Lymphocytes Absolute Manual 3.51 K/mm3 (1.1-4.5); Lymphocytes Percent Manual 12 % (18-44); Monocytes Absolute Manual 1.46 K/mm3 (0.1-0.90); Monocytes Percent Manual 5 % (3-9); Neutrophils Absolute Manual 24.31 K/mm3 (1.3-6.7); Neutrophils Percent Manual 81 % (46-73); Platelet Estimate Adequate (Adequate); Schistocytes None Seen (NORMAL); Total Cells Counted 100
--- NOTE | 2023-07-27 03:03 | PC.NURSE ---
Report given to Emeka HERNANDEZ
[2023-07-27 03:50] LABS: Magnesium 1.6 mg/dL (1.6-2.3)
[2023-07-27 03:56] LABS: INR 1.1; Prothrombin Time 15.3 Seconds (11.1-14.7)
[2023-07-27 03:57] LABS: Partial Thromboplastin Time 38.4 SECONDS (22.3-36.8)
[2023-07-27 04:03] LABS: Troponin I < 0.012 ng/mL (0.000-0.034)
[2023-07-27 04:09] LABS: Procalcitonin 0.4 ng/mL
[2023-07-27 04:21] LABS: Lactic Acid Reflex 1.7 mmol/L (0.7-2.0)
[2023-07-27 04:41] LABS: Influenza A QL RT-PCR Negative (Negative); Influenza B QL RT-PCR Negative (Negative); RSV RNA, RT-PCR Negative (Negative); SARS-CoV-2 RNA PCR Negative (Negative)
--- NOTE | 2023-07-27 05:58 | ED.GENADULT ---
HPI - General Adult General Chief complaint: Weakness Stated complaint: weakness Time Seen by Provider: 07/27/23 01:52 History of Present Illness HPI narrative: patient is a 78-year-old gentleman who presents emerged from with chief complaint generalized weakness headache dizziness and confusion. The patient was seen by Urology in the office and was diagnosed with urinary tract infection. The patient has history of a nephrectomy and also has had frequent UTIs. Patient was started on Bactrim and the family has noticed that he has been more confused and has not been his usual self. Related Data Home Medications Medication Instructions Recorded Confirmed aspirin 81 mg tablet,delayed 81 mg PO DAILY 08/17/19 06/23/23 release ascorbic acid (vitamin C) 1,000 mg 1,000 mg PO DAILY 07/21/21 06/23/23 tablet furosemide 20 mg tablet (Lasix) 20 mg PO QAM 07/21/21 06/23/23 multivitamin 1 tablet PO DAILY 07/21/21 06/23/23 fenofibrate 54 mg tablet 54 mg PO DAILY 08/10/22 06/23/23 gabapentin 100 mg capsule 100 mg PO HS 08/10/22 06/23/23 Allergies Allergy/AdvReac Type Severity Reaction Status Date / Time morphine AdvReac Severe Confusion/Severe Verified 06/23/23 11:13 agitation/AGRESSIVE Review of Systems Review of Systems: A 10 system review of systems was completed on the patient and is negative except for what is stated in the HPI. Nursing and ancillary documentation was reviewed. [facility] Past Medical History Medical History Benign prostatic hyperplasia Chronic kidney disease Chronic obstructive pulmonary disease CKD (chronic kidney disease) stage 3, GFR 30-59 ml/min COPD (chronic obstructive pulmonary disease) Gross hematuria Hearing loss History of tobacco abuse Impaired fasting glucose Obesity Obstructive sleep apnea on CPAP MELANIE on CPAP Right leg DVT Surgical History Surgical History H/O left nephrectomy History of appendectomy History of bilateral hip arthroplasty History of left nephrectomy History of partial colectomy Hx of transurethral resection of prostate Sacral nerve stimulator present Family History Family History Sibling Malignant neoplasm of prostate Family history of pancreatic cancer Family history of lung cancer Social History Social History Social History: Surrogate medical decision maker: Roxana Quintanilla, daughter. Code status: Full code. Smoking packs per day: 1 Smoking cigarettes per day: 20.0 Years smoked: 63 Smoking pack-years: 63.00 Smoking status: Former smoker Tobacco type: cigarettes Second hand tobacco smoke exposure: No Smoking end date: 02/28/04 Alcohol intake: current Drinks per week: 4 Alcohol use details: 5-6 BEERS/WEEK Substance use: never Substance use type: does not use Lack of Transportation: No Lack of Food: Never True Current Housing: Decline to Answer Concerned About Future Housing: Decline to Answer Difficulty Paying Gas/Electric Bills: Decline to Answer Difficulty Paying for Meds: Decline to Answer Currently Unemployed: Decline to Answer Education: Decline to Answer Difficulty w/ Childcare or Family Care: Decline to Answer Living arrangements: with family Additional living arrangements comments: DAUGHTER AND MIN Occupation/Education: retired Additional occupation/education comments: 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 Gender identity (if verbalized by the patient): Male Spiritual care concerns: No Exam Narrative: GENERAL: Well-appearing, well-nourished, and in no acute distress. HEAD: Normocephalic, atraumatic. EYES: PERRLA and EOMI. ENT: Nares clear, no rhinorrhea or epistaxis. Mucous membranes moist. NEC
--- NOTE | 2023-07-27 06:23 | PC.NURSE ---
Attempted angeles insertion at this time and was unsuccessful. Pt and daughter at bedside pt has hx of trouble w angeles catheter placement.
[2023-07-27] MEDS: SODIUM CHLORIDE 0.9% IV 1,000 ML 125 ML IV CONT (08:04)
--- NOTE | 2023-07-27 09:21 | ADMGEN ---
This patient, Jason Daigle, was admitted to [facility] Surg Room 304-01 at 0655. Patient/family oriented to hospital policies and general routines including ID bracelet, bed and alarms, visiting hours, pain management, procedures, bathroom and other care routines, personal items, smoking policy, room service/diet, and visiting hours. Information on how to activate the Rapid Response Team has been discussed. Patient/Family are encouraged to report perceived risks to care and to ask questions if they do not understand what they are told or what they should do.
[2023-07-27] MEDS: DOCUSATE SODIUM 100 MG CAPSULE PO (11:48)
[2023-07-27] MEDS: ASPIRIN 81 MG ENTERIC TABLET PO (11:48)
[2023-07-27] MEDS: ASCORBIC ACID 500 MG TABLET 1000 MG PO (11:48)
[2023-07-27] MEDS: MULTIVITAMINS THERAPEUTIC TAB (*BKC) 1 TABLET PO (11:48)
--- NOTE | 2023-07-27 12:32 | PM.IMHP ---
H&P: HPI History of Present Illness Date/Time: 07/27/23 12:32 Chief Complaint: weakness, fever, unable to ambulate Narrative: This is an 78-year-old male patient with past medical history of BPH, CKD, COPD (former smoker,) MELANIE on CPAP and prior DVT (no longer on anticoagulation) who was admitted to the hospital due to generalized weakness with finding urinary tract infection with fever elevated white blood cell count. Patient reports that 2-3 days ago he started feeling weaker. He he went to see Urology and was diagnosed with a urinary tract infection and started Bactrim. However, patient continued to get more weak and more confused and not acting his usual self. Patient also has a past history of left nephrectomy. Patient was started on ceftriaxone in the emergency department. Gracia catheter established after much difficulty and several attempts. UA and culture were not sent before IV antibiotics were started. At this time patient reports feeling better just generally weak. EKG shows patient was in atrial fibrillation, no past history of such. Patient denies difficulty breathing or chest pain. Review of Systems Review of Systems: All systems reviewed & are unremarkable except as noted in HPI and below PMFSH Past Medical History Medical History Benign prostatic hyperplasia Chronic kidney disease Chronic obstructive pulmonary disease CKD (chronic kidney disease) stage 3, GFR 30-59 ml/min COPD (chronic obstructive pulmonary disease) Gross hematuria Hearing loss History of tobacco abuse Impaired fasting glucose Obesity Obstructive sleep apnea on CPAP MELANIE on CPAP Right leg DVT Surgical History Surgical History H/O left nephrectomy History of appendectomy History of bilateral hip arthroplasty History of left nephrectomy History of partial colectomy Hx of transurethral resection of prostate Sacral nerve stimulator present Family History Family History Sibling Malignant neoplasm of prostate Family history of pancreatic cancer Family history of lung cancer Social History Social History Social History: Surrogate medical decision maker: Roxana Quintanilla, daughter. Code status: Full code. Smoking packs per day: 1 Smoking cigarettes per day: 20.0 Years smoked: 63 Smoking pack-years: 63.00 Smoking status: Former smoker Second hand tobacco smoke exposure: No Alcohol intake: current Drinks per week: 4 Alcohol use details: 5-6 BEERS/WEEK Substance use: never Substance use type: does not use Lack of Transportation: No Lack of Food: Never True Current Housing: Decline to Answer Concerned About Future Housing: Decline to Answer Difficulty Paying Gas/Electric Bills: Decline to Answer Difficulty Paying for Meds: Decline to Answer Currently Unemployed: Decline to Answer Education: Decline to Answer Difficulty w/ Childcare or Family Care: Decline to Answer Living arrangements: with family Additional living arrangements comments: DAUGHTER AND MIN Occupation/Education: retired Additional occupation/education comments: 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 Gender identity (if verbalized by the patient): Male Spiritual care concerns: No Meds Home Medications and Allergies Home Medications Medication Instructions Recorded Confirmed Type aspirin 81 mg tablet,delayed 81 mg PO DAILY 08/17/19 07/27/23 History release ascorbic acid (vitamin C) 1,000 mg 1,000 mg PO DAILY 07/21/21 07/27/23 History tablet furosemide 20 mg tablet (Lasix) 20 mg PO QAM 07/21/21 07/27/23 History multivitamin 1 tablet PO DAILY 07/21/21 07/27/23 History fenofibrate 54 mg tablet 54 mg PO DAILY 08/10/22 07/27/23 History gabapentin 100 m
[2023-07-27] MEDS: PANTOPRAZOLE 40 MG TABLET PO (13:03)
[2023-07-27] MEDS: GABAPENTIN 100 MG CAPSULE PO (20:08)
[2023-07-27] MEDS: APIXABAN 5 MG TABLET PO (20:08)
[2023-07-27] MEDS: ACETAMINOPHEN 325 MG TABLET 650 MG PO (20:08)
[2023-07-27 21:47] LABS: Appearance Urine Cloudy (Clear); Bacteria Urine None Seen /hpf; Bilirubin Urine Negative (Negative); Blood Urine 3+ (Negative); Color Urine Dark Yellow (Yellow); Glucose Urine UA Negative (Negative); Ketones Urine Negative (Negative); Leukocyte Esterase Ur 3+ LEU/UL (Negative); Nitrate Urine Negative (Negative); Protein Urine 2+ mg/dL (Negative); RBC Urine >100 /hpf (0-2); Specific Grav Ur 1.019 (1.001-1.035); Squamous Epithelial Cell Urine None seen /hpf (Few); WBC Urine >100 /hpf
[2023-07-27 21:57] LABS: Add Urine Microscopic? YES
[2023-07-28] VITALS (10 sets, daily range): BP systolic 101–148; BP diastolic 72–97; PULSE 78–116; RESP 16–20; TEMP 36.1–37; O2SAT 93–97
[2023-07-28] MEDS: SODIUM CHLORIDE 0.9% IV 1,000 ML 125 ML IV CONT (05:39)
[2023-07-28 05:45] LABS: Basophils Absolute Auto 0.1 K/mm3 (0.0-0.1); Basophils Percent Auto 0.3 % (0.2-1.2); Eosinophils Absolute Auto 0.1 K/mm3 (0-0.3); Eosinophils Percent Auto 0.6 % (0-4.4); Hematocrit 41.1 % (42.0-52.0); Hemoglobin 12.9 g/dL (14.0-18.0); Immature Granulocyte Absolute 0.21 K/mm3 (0.00-0.031); Immature Granulocyte Percent A 1.1 % (0-0.5); Lymphocytes Percent Auto 8.4 % (18.3-44.2); Mean Corpuscular HGB Conc 31.4 g/dl (32-36); Mean Corpuscular Hemoglobin 29.6 pg (26-34); Mean Corpuscular Volume 94.3 fl (80-100); Mean Platelet Volume 9.6 fl (7.4-10.4); Monocytes Absolute Auto 1.4 K/mm3 (0.1-0.6); Monocytes Percent Auto 7.4 % (2.6-8.5); Neutrophils Absolute Auto 15.6 K/mm3 (1.3-6.7); Neutrophils Percent Auto 82.2 % (45.5-73.1); Platelet Count Result 207 k/mm3 (150-375); Red Blood Count 4.36 M/mm3 (4.6-6.20); Red Cell Distribution Width 14.6 % (11.5-14.5)
[2023-07-28 06:10] LABS: Alanine Aminotransferase 15 U/L (6-50); Albumin Level 2.1 g/dL (3.5-5.1); Alkaline Phosphatase 64 U/L (38-126); Anion Gap 9 mmol/L (8-16); Aspartate Amino Transferase 22 U/L (17-59); Bilirubin,Total 0.9 mg/dL (0.2-1.3); Blood Urea Nitrogen 17 mg/dL (9-20); Calcium 8.6 mg/dL (8.4-10.2); Carbon Dioxide 27 mmol/L (22-30); Chloride 101 mmol/L (98-107); Estimated CRCL calculation 49 ml/min; Estimated Glomerular Filt Rate 42; Glucose 109 mg/dL (65-110); Magnesium 1.8 mg/dL (1.6-2.3); Potassium 3.9 mmol/L (3.4-5.0); Sodium 137 mmol/L (137-145)
[2023-07-28] MEDS: UMECLIDINIUM/VILANTEROL 62.5-25 MCG ELLIPTA 1 PUFF INHALATION (07:45)
--- NOTE | 2023-07-28 08:50 | PM.IMPN ---
Progress Note: A&P Assessment and Plan (1) Acute UTI: Code(s): N39.0 - Urinary tract infection, site not specified Status: Acute Assessment and Plan: UA obtained in the outpatient setting consistent with urinary tract infection. Patient was started on oral antibiotic by Nephrology but he continued to get weaker so he came to the emergency department. Patient started on ceftriaxone IV and admitted. [place] catheter inserted in ER with much difficulty. Patient got ceftriaxone before UA/culture in our system. WBC 29. 07/28: WBC down to 19 today. Continue with abx and awaiting urine culture results. Urine to angeles bag is yellow and cloudy. (2) Sepsis: Code(s): A41.9 - Sepsis, unspecified organism Status: Acute Assessment and Plan: Patient tachycardic tachypneic with elevated white blood cell count and weakness. Source is urinary tract infection. Blood cultures in process. Urine culture ordered. Lactic negative. 07/28: Blood cultures with NGTD. Still awaiting urine culture. SBP 117-107, afebrile, HR 70-90's. Strict I's and O's. (3) Benign prostatic hyperplasia with lower urinary tract symptoms: Code(s): N40.1 - Benign prostatic hyperplasia with lower urinary tract symptoms Status: Acute Assessment and Plan: [place] catheter inserted in the emergency department with much difficulty. This should not be auto discontinued without provider order. Nursing staff made aware of this. 07/28: Flomax started. (4) Generalized weakness: Code(s): R53.1 - Weakness Status: Acute Assessment and Plan: Patient was unable to stand and ambulate at home due to profound weakness related to urinary tract infection. PT/OT consulted and recommendations are appreciated. Fall precautions 07/28: Using gallito steady for transfers per care coordination. PT/OT will eval him. (5) CKD (chronic kidney disease) stage 3, GFR 30-59 ml/min: Code(s): N18.30 - Chronic kidney disease, stage 3 unspecified Status: Acute Assessment and Plan: s/p left nephrectomy, appears to be at baseline CKD status. BLE with trace edema. Venous doppler r/o DVT. Stopping IVF. 07/28: Slight increase in Cr from 1.4-1.6 today. Likely related to congestive uropathy. IVF stopped. (6) Essential (primary) hypertension: Code(s): I10 - Essential (primary) hypertension Status: Acute Assessment and Plan: Blood pressure reviewed on 07/27. Initially patient hypertensive became mildly hypotensive 96/75. Home blood pressure medicine held, restart when blood pressures remain stable to elevated. 07/28: Continue to hold home agents. BP 107/97 this am. (7) MELANIE on CPAP: Code(s): G47.33 - Obstructive sleep apnea (adult) (pediatric); Z99.89 - Dependence on other enabling machines and devices Status: Acute Assessment and Plan: Ordered auto PAP while hospitalized (8) Chronic obstructive pulmonary disease: Code(s): J44.9 - Chronic obstructive pulmonary disease, unspecified Status: Acute Assessment and Plan: Continue home medications, stable, no respiratory complaints at this time. (9) Atrial fibrillation: Code(s): I48.91 - Unspecified atrial fibrillation Status: Acute Assessment and Plan: EKG with a-fib RVR, 100 bmp on admission. Echocardiogram ordered, no known history of atrial fibrillation, Eliquis started, chads Vasc score 5 due to age, hypertension history, prior DVT, 07/28:ECHO completed, results as followed. Added telemetry for new onset a-fib to monitor for rate and possible initiation of rate control agents. Summary ? 1. Complete two-dimensional, color flow and Doppler transthoracic echocardiogram is performed. ? 2. Left ventricular chamber dimension is normal. ? 3. Left ventricular systolic function is normal, estimated at 55-60%. ? 4. There is mild concentric increased left ventricular wall thickness. ? 5. The left ventricular diastol
[2023-07-28] MEDS: ASCORBIC ACID 500 MG TABLET 1000 MG PO (09:04)
[2023-07-28] MEDS: DOCUSATE SODIUM 100 MG CAPSULE PO (09:04)
[2023-07-28] MEDS: APIXABAN 5 MG TABLET PO ×2 (09:04→21:06)
[2023-07-28] MEDS: ASPIRIN 81 MG ENTERIC TABLET PO (09:04)
[2023-07-28] MEDS: PANTOPRAZOLE 40 MG TABLET PO (09:05)
[2023-07-28] MEDS: FENOFIBRATE,MICRONIZED 48 MG TABLET PO (09:05)
[2023-07-28] MEDS: MULTIVITAMINS THERAPEUTIC TAB (*BKC) 1 TABLET PO (09:05)
[2023-07-28] MEDS: TAMSULOSIN HCL 0.4 MG CAPSULE PO (11:35)
[2023-07-28] MEDS: ACETAMINOPHEN 325 MG TABLET 650 MG PO (15:43)
[2023-07-28] MEDS: polyethylene glycoL 3350 17 GM POWD.PACK PO (17:58)
[2023-07-28] MEDS: traMADol HCL (*CRX) 50 MG TABLET PO (18:29)
[2023-07-28] MEDS: SENNOSIDES 8.6 MG TABLET PO (21:06)
[2023-07-28] MEDS: GABAPENTIN 100 MG CAPSULE PO (21:06)
[2023-07-28] MEDS: MELATONIN 3 MG TABLET PO (23:46)
[2023-07-29] VITALS (9 sets, daily range): BP systolic 138–177; BP diastolic 79–96; PULSE 92–121; RESP 16–22; TEMP 36–37.2; O2SAT 94–98
[2023-07-29] MEDS: traMADol HCL (*CRX) 50 MG TABLET PO ×3 (02:37→20:45)
[2023-07-29] MEDS: WATER FOR IRRIGATION, STERILE 1,000 ML BOTTLE 1000 ML (05:37)
[2023-07-29 06:09] LABS: Basophils Absolute Auto 0.1 K/mm3 (0.0-0.1); Basophils Percent Auto 0.5 % (0.2-1.2); Eosinophils Absolute Auto 0.2 K/mm3 (0-0.3); Eosinophils Percent Auto 1.9 % (0-4.4); Hematocrit 41.1 % (42.0-52.0); Hemoglobin 13.1 g/dL (14.0-18.0); Immature Granulocyte Absolute 0.08 K/mm3 (0.00-0.031); Immature Granulocyte Percent A 0.8 % (0-0.5); Lymphocytes Absolute Auto 1.24 K/mm3 (0.9-3.2); Lymphocytes Percent Auto 12.5 % (18.3-44.2); Mean Corpuscular HGB Conc 31.9 g/dl (32-36); Mean Corpuscular Hemoglobin 29.3 pg (26-34); Mean Corpuscular Volume 91.9 fl (80-100); Monocytes Percent Auto 9.8 % (2.6-8.5); Neutrophils Absolute Auto 7.4 K/mm3 (1.3-6.7); Neutrophils Percent Auto 74.5 % (45.5-73.1); Platelet Count Result 217 k/mm3 (150-375); Red Blood Count 4.47 M/mm3 (4.6-6.20); Red Cell Distribution Width 14.4 % (11.5-14.5); White Blood Count 9.9 K/mm3 (4.5-10.0)
[2023-07-29 06:18] LABS: Alanine Aminotransferase 15 U/L (6-50); Albumin Level 3.3 g/dL (3.5-5.1); Alkaline Phosphatase 76 U/L (38-126); Anion Gap 10 mmol/L (8-16); Aspartate Amino Transferase 17 U/L (17-59); Bilirubin,Total 0.5 mg/dL (0.2-1.3); Blood Urea Nitrogen 14 mg/dL (9-20); Calcium 8.6 mg/dL (8.4-10.2); Carbon Dioxide 23 mmol/L (22-30); Chloride 101 mmol/L (98-107); Estimated CRCL calculation 56 ml/min; Estimated Glomerular Filt Rate 49; Glucose 123 mg/dL (65-110); Magnesium 1.9 mg/dL (1.6-2.3); Potassium 3.5 mmol/L (3.4-5.0); Sodium 134 mmol/L (137-145)
--- NOTE | 2023-07-29 07:06 | WPDURCON ---
Assessment and Plan Assessment and plan (1) Acute UTI: Code(s): N39.0 - Urinary tract infection, site not specified Status: Acute (2) Generalized weakness: Code(s): R53.1 - Weakness Status: Acute (3) History of nephrectomy: Code(s): Z90.5 - Acquired absence of kidney Status: Acute Assessment and Plan: Clinical presentation (generalized weakness, marked irritable voiding symptoms with sense of incomplete emptying, hematuria ) likely all due to an acute cystitis. Seems to be improving dramatically with supportive care and IV. Plan to leave the catheter in with a voiding trial just prior to discharge. 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 In addition to that he has a history of recurrent urethral stricture/ bladder contracture. Just prior to this admission saw in the office with a sense of incomplete emptying. Evaluation with bladder ultrasonography and cystoscopy showed no recurrent stricture or retention but signs of lower urinary tract infection. He was started Bactrim DS but required admission shortly thereafter for progressive weakness. Since admit a Gracia catheter was placed and he has had transient hematuria. The urine has now cleared. Patient is now feeling better with improved mental status and less fatigue. CT scan abdomen pelvis was essentially unremarkable Review of Systems Cardiovascular: Cardiovascular: Denies chest pain, Denies lightheadedness, Denies palpitations and Denies dyspnea Respiratory: Respiratory: Denies dyspnea Gastrointestinal: Gastrointestinal: Denies diarrhea, Denies nausea and Denies vomiting Genitourinary: Genitourinary: Denies hematuria and Denies dysuria Endocrine: Endocrine: Denies palpitations PMFSH Past Medical History Medical History Benign prostatic hyperplasia Chronic kidney disease Chronic obstructive pulmonary disease CKD (chronic kidney disease) stage 3, GFR 30-59 ml/min COPD (chronic obstructive pulmonary disease) Gross hematuria Hearing loss History of tobacco abuse Impaired fasting glucose Obesity Obstructive sleep apnea on CPAP MELANIE on CPAP Right leg DVT Surgical History Surgical History H/O left nephrectomy History of appendectomy History of bilateral hip arthroplasty History of left nephrectomy History of partial colectomy Hx of transurethral resection of prostate Sacral nerve stimulator present Family History Family History Sibling Malignant neoplasm of prostate Family history of pancreatic cancer Family history of lung cancer Social History Social History Social History: Surrogate medical decision maker: Roxana Quintanilla, daughter. Code status: Full code. Smoking packs per day: 1 Smoking cigarettes per day: 20.0 Years smoked: 63 Smoking pack-years: 63.00 Smoking status: Former smoker Second hand tobacco smoke exposure: No Alcohol intake: current Drinks per week: 4 Alcohol use details: 5-6 BEERS/WEEK Substance use: never Substance use type: does not use Lack of Transportation: No Lack of Food: Never True Current Housing: Decline to Answer Concerned About Future Housing: Decline to Answer Difficulty Paying Gas/Electric Bills: Decline to Answer Difficulty Paying for Meds: Decline to Answer Currently Unemployed: Decline to Answer Education: Decline to Answer Difficulty w/ Childcare or Family Care: Decline to Answer Living arrangements: with family Additiona
[2023-07-29] MEDS: UMECLIDINIUM/VILANTEROL 62.5-25 MCG ELLIPTA 1 PUFF INHALATION (08:13)
--- NOTE | 2023-07-29 08:25 | PM.IMPN ---
Progress Note: A&P Assessment and Plan (1) Acute alteration in mental status: Code(s): R41.82 - Altered mental status, unspecified Status: Acute Assessment and Plan: Last known well at completion of therapy around ~ 1230. Was A&Ox4. Now, 1330 thinks he is at his home in his chair. VS at 1200 96.8, HR 111, RR 20, 96% on room air, 177/85. Recently was started on Eliquis for a-fib on arrival to the hospital. Acute mental status change, will complete stat head CT to r/o acute stroke. SOB after exertion with therapy. Chest XR shows mild pulmonary congestion, will give lasix x 1 40 mg IVP. Albuterol x1. Not requiring oxygen. A-fib, rate 100's. Will check troponin and EKG. Infection has been resolving. WBC 9.9, afebrile. NIH was 6 scoring for right sided upper arm and lower arm motor drift and mild aphasia. He is unable to identify glasses, calls them eyes or plastic . 07/29: CT head was negative for acute process. (2) Acute UTI: Code(s): N39.0 - Urinary tract infection, site not specified Status: Acute Assessment and Plan: UA obtained in the outpatient setting consistent with urinary tract infection. Patient was started on oral antibiotic by Nephrology but he continued to get weaker so he came to the emergency department. Patient started on ceftriaxone IV and admitted. Angeles catheter inserted in ER with much difficulty. Patient got ceftriaxone before UA/culture in our system. WBC 29. 07/28: WBC down to 19 today. Continue with abx and awaiting urine culture results. Urine to angeles bag is yellow and cloudy. 07/29: WBC 9.9. Urine culture with no growth. Given patient's complaints of cystitis, elevated WBC, and quality of urine, will continue with antibiotics for 7 days. Stopped Rocephin and transitioned to Augmentin through 08/02. (3) Sepsis: Code(s): A41.9 - Sepsis, unspecified organism Status: Acute Assessment and Plan: Patient tachycardic tachypneic with elevated white blood cell count and weakness. Source is urinary tract infection. Blood cultures in process. Urine culture ordered. Lactic negative. 07/28: Blood cultures with NGTD. Still awaiting urine culture. SBP 117-107, afebrile, HR 70-90's. Strict I's and O's. 07/29: Blood cultures NGTD. Urine culture negative. (4) Benign prostatic hyperplasia with lower urinary tract symptoms: Code(s): N40.1 - Benign prostatic hyperplasia with lower urinary tract symptoms Status: Acute Assessment and Plan: Angeles catheter inserted in the emergency department with much difficulty. This should not be auto discontinued without provider order. Nursing staff made aware of this. 07/28: Flomax started. 07/29: Difficulty with hematuria and unable to pass clots last night. Urine is less red today and free flowing. Will continue angeles catheter today and monitor overnight for recurrent hematuria. (5) Generalized weakness: Code(s): R53.1 - Weakness Status: Acute Assessment and Plan: Patient was unable to stand and ambulate at home due to profound weakness related to urinary tract infection. PT/OT consulted and recommendations are appreciated. Fall precautions 07/28: Using gallito steady for transfers per care coordination. PT/OT will eval him. 07/29: Did fairly well working with PT/OT today. Was seen walking the halls with PT with wheeled walker. (6) CKD (chronic kidney disease) stage 3, GFR 30-59 ml/min: Code(s): N18.30 - Chronic kidney disease, stage 3 unspecified Status: Acute Assessment and Plan: s/p left nephrectomy, appears to be at baseline CKD status. BLE with trace edema. Venous doppler r/o DVT. Stopping IVF. 07/28: Slight increase in Cr from 1.4-1.6 today. Likely related to congestive uropathy. IVF stopped. 07/29: Back to 1.4 which is in the realm of his baseline. (7) Essential (primary) hypertension: Code(s): I10 - Essential (primary) hypertension Status: Acut
[2023-07-29] MEDS: ASPIRIN 81 MG ENTERIC TABLET PO (09:04)
[2023-07-29] MEDS: PANTOPRAZOLE 40 MG TABLET PO (09:04)
[2023-07-29] MEDS: TAMSULOSIN HCL 0.4 MG CAPSULE PO (09:04)
[2023-07-29] MEDS: DOCUSATE SODIUM 100 MG CAPSULE PO (09:04)
[2023-07-29] MEDS: APIXABAN 5 MG TABLET PO ×2 (09:04→20:46)
[2023-07-29] MEDS: MULTIVITAMINS THERAPEUTIC TAB (*BKC) 1 TABLET PO (09:04)
[2023-07-29] MEDS: ASCORBIC ACID 500 MG TABLET 1000 MG PO (09:04)
[2023-07-29] MEDS: FENOFIBRATE,MICRONIZED 48 MG TABLET PO (09:04)
[2023-07-29] MEDS: POTASSIUM CHLORIDE 10 MEQ ER TABLET PO (09:09)
[2023-07-29] MEDS: FUROSEMIDE 20 MG TABLET PO (09:09)
[2023-07-29] MEDS: AMOXICILLIN/CLAVULANATE K 875-125 MG TAB 1 TABLET PO ×2 (09:09→20:46)
[2023-07-29] MEDS: amLODIPine BESYLATE 5 MG TABLET 10 MG PO (09:09)
[2023-07-29] MEDS: FUROSEMIDE INJ 40 MG/4 ML VIAL IV PUSH (13:24)
--- NOTE | 2023-07-29 13:32 | ECG_ITS ---
Measurements Intervals [place] Rate: 101 P: GA: 0 QRS: 31 QRSD: 142 T: 0 QT: 335 QTc: 436 Interpretive Statements ATRIAL FIBRILLATION WITH RAPID VENTRICULAR RESPONSE RIGHT BUNDLE BRANCH BLOCK BASELINE ARTIFACT- I, II, III, AVR, AVL, AVF, V3-V4, V6 ABNORMAL ECG COMPARED TO ECG 07/27/2023 02:02:16 NO SIGNIFICANT CHANGES Electronically Signed On 07-29-2023 14:31:18 TURN OPERATOR by Luke Lees D.O.
[2023-07-29 14:34] LABS: Troponin I < 0.012 ng/mL (0.000-0.034)
[2023-07-29 17:49] LABS: Troponin I < 0.012 ng/mL (0.000-0.034)
[2023-07-29] MEDS: SENNOSIDES 8.6 MG TABLET PO (20:46)
[2023-07-29] MEDS: GABAPENTIN 100 MG CAPSULE PO (20:46)
[2023-07-29] MEDS: MELATONIN 3 MG TABLET PO (20:47)
[2023-07-30] VITALS (9 sets, daily range): BP systolic 137–169; BP diastolic 73–93; PULSE 58–114; RESP 16–101; TEMP 36.1–38; O2SAT 20–96
[2023-07-30 06:56] LABS: Basophils Absolute Auto 0.1 K/mm3 (0.0-0.1); Basophils Percent Auto 0.7 % (0.2-1.2); Eosinophils Absolute Auto 0.1 K/mm3 (0-0.3); Eosinophils Percent Auto 1.3 % (0-4.4); Hematocrit 42.7 % (42.0-52.0); Immature Granulocyte Absolute 0.09 K/mm3 (0.00-0.031); Lymphocytes Absolute Auto 0.84 K/mm3 (0.9-3.2); Lymphocytes Percent Auto 9.6 % (18.3-44.2); Mean Corpuscular HGB Conc 32.8 g/dl (32-36); Mean Corpuscular Hemoglobin 29.5 pg (26-34); Mean Corpuscular Volume 89.9 fl (80-100); Mean Platelet Volume 9.9 fl (7.4-10.4); Monocytes Absolute Auto 0.9 K/mm3 (0.1-0.6); Monocytes Percent Auto 10.6 % (2.6-8.5); Neutrophils Absolute Auto 6.7 K/mm3 (1.3-6.7); Neutrophils Percent Auto 76.8 % (45.5-73.1); Platelet Count Result 227 k/mm3 (150-375); Red Blood Count 4.75 M/mm3 (4.6-6.20); Red Cell Distribution Width 13.9 % (11.5-14.5); White Blood Count 8.8 K/mm3 (4.5-10.0)
[2023-07-30 07:06] LABS: Alanine Aminotransferase 16 U/L (6-50); Albumin Level 3.6 g/dL (3.5-5.1); Alkaline Phosphatase 73 U/L (38-126); Anion Gap 8 mmol/L (8-16); Aspartate Amino Transferase 20 U/L (17-59); Bilirubin,Total 0.7 mg/dL (0.2-1.3); Blood Urea Nitrogen 12 mg/dL (9-20); Calcium 8.8 mg/dL (8.4-10.2); Carbon Dioxide 27 mmol/L (22-30); Chloride 99 mmol/L (98-107); Estimated CRCL calculation 60 ml/min; Estimated Glomerular Filt Rate 53; Glucose 130 mg/dL (65-110); Magnesium 1.8 mg/dL (1.6-2.3); Potassium 3.3 mmol/L (3.4-5.0); Sodium 134 mmol/L (137-145)
--- NOTE | 2023-07-30 07:07 | WPDUROPN2 ---
Progress Note: A&P Assessment and Plan (1) Generalized weakness: Code(s): R53.1 - Weakness Status: Acute (2) History of nephrectomy: Code(s): Z90.5 - Acquired absence of kidney Status: Acute Assessment and Plan: Urine remains clear - will remove catheter for voiding trial today. Urine culture negative but may be factitious due to starting antibiotics prior to admission. Would recommend empiric antibiotics for additional 5-7 days for presumed UTI Subjective Subjective Date/Time Seen: 07/30/23 07:07 Interval history: Sleeping -> I didn't wake him. Review of Systems Review of Systems: ROS unobtainable: Yes other (sleeping) Exam Urinary Catheter: Urinary Catheter: patent and draining and urine clear Objective Data Vital Signs Vital Signs: Vital Signs - 24 hr 07/29/23 08:13 07/29/23 08:00 07/29/23 10:56 Temperature 97.1 F L Pulse Rate 104 H Respiratory Rate 20 Blood Pressure 143/79 H Pulse Oximetry 96 96 Oxygen Delivery Room Air Room Air 07/29/23 11:30 07/29/23 12:00 07/29/23 16:00 Temperature 96.8 F L 98.9 F Pulse Rate 111 H 106 H Respiratory Rate 20 20 Blood Pressure 177/85 H 146/82 H Pulse Oximetry 96 98 Oxygen Delivery Room Air 07/29/23 08:00 07/29/23 12:00 07/29/23 16:00 Temperature Pulse Rate 94 105 H 121 H Respiratory Rate Blood Pressure Pulse Oximetry Oxygen Delivery 07/29/23 20:00 07/29/23 22:33 07/30/23 00:00 Temperature 97 F L 96.9 F L Pulse Rate 94 92 92 Respiratory Rate 20 16 101 H Blood Pressure 138/96 H 169/93 H Pulse Oximetry 98 94 20 L Oxygen Delivery Autopap 07/30/23 01:42 07/29/23 20:00 07/30/23 00:00 Temperature Pulse Rate 113 H 95 Respiratory Rate 16 Blood Pressure Pulse Oximetry Oxygen Delivery Autopap 07/30/23 04:00 07/30/23 04:00 Temperature 97.4 F L Pulse Rate 100 58 L Respiratory Rate 20 Blood Pressure 137/73 Pulse Oximetry 96 Oxygen Delivery Intake/Output Intake/Output: Intake & Output 11/28/23 11/29/23 11/30/23 12/01/23 23:59 23:59 23:59 23:59 Intake Total 3200 2450 1720 100 Output Total 500 1750 4350 1150 Balance 2700 058 -9488 -6767 Meds/Results Medications: Active Medications Generic Name Dose Route Start Last Admin Trade Name Freq PRN Reason Stop Dose Admin Acetaminophen 650 mg 07/27/23 05:56 07/28/23 15:43 Acetaminophen 325 Mg Tablet PO 650 mg Q4H PRN Administration Mild Pain (1-3) or Fever Albuterol 1 - 2 puff 07/27/23 10:49 Albuterol Sulfate (*Sp) Aerosol 1 Puff INHALATION Q4-6H PRN shortness of breath or wheezing Amlodipine Besylate 10 mg 07/29/23 09:00 07/29/23 09:09 Amlodipine Besylate 5 Mg Tablet PO 10 mg QAM TEJAS Administration Amoxicillin/Clavulanate Potassium 1 tablet 07/29/23 09:00 07/29/23 20:46 Amoxicillin/Clavulanate K 875-125 Mg Tab PO 08/02/23 22:00 1 tablet Q12HR TEJAS Administration Apixaban 5 mg 07/27/23 21:00 07/29/23 20:46 Apixaban 5 Mg Tablet PO 5 mg Q12HR TEJAS Administration Ascorbic Acid 1,000 mg 07/27/23 11:05 07/29/23 09:04 Ascorbic Acid 500 Mg Tablet PO 1,000 mg DAILY TEJAS Administration Aspirin 81 mg 07/27/23 11:05 07/29/23 09:04 Aspirin 81 Mg Enteric Tablet PO 81 mg DAILY TEJAS Administration Docusate Sodium 100 mg 07/27/23 11:05 07/29/23 09:04 Docusate Sodium 100 Mg Capsule PO 100 mg DAILY TEJAS Administration Fenofibrate 48 mg 07/28/23 09:00 07/29/23 09:04 Fenofibrate,Micronized 48 Mg Tablet PO 48 mg QAM TEJAS Administration Furosemide 20 mg 07/29/23 09:00 07/29/23 09:09 Furosemide 20 Mg Tablet PO 20 mg QAM TEJAS Administration Gabapentin 100 mg 07/27/23 21:00 07/29/23 20:46 Gabapentin 100 Mg Capsule PO 100 mg HS TEJAS Administration Melatonin 3 mg 07/28/23 23:37 07/29/23 20:47 Melatonin 3 Mg Tablet PO 3 mg HS PRN Administration Sleep Multivitamins T
[2023-07-30] MEDS: UMECLIDINIUM/VILANTEROL 62.5-25 MCG ELLIPTA 1 PUFF INHALATION (07:37)
--- NOTE | 2023-07-30 08:15 | P.PNIM_ITS ---
Progress Note: A&P Assessment and Plan (1) Acute alteration in mental status: Code(s): R41.82 - Altered mental status, unspecified Status: Acute Assessment and Plan: Last known well at completion of therapy around ~ 1230. Was A&Ox4. Now, 1330 thinks he is at his home in his chair. * VS at 1200 96.8, HR 111, RR 20, 96% on room air, 177/85. * Recently was started on Eliquis for a-fib on arrival to the hospital. Acute mental status change, will complete stat head CT to r/o acute stroke. * SOB after exertion with therapy. Chest XR shows mild pulmonary congestion, will give lasix x 1 40 mg IVP. Albuterol x1. Not requiring oxygen. * A-fib, rate 100's. Will check troponin and EKG. * Infection has been resolving. WBC 9.9, afebrile. * NIH was 6 scoring for right sided upper arm and lower arm motor drift and mild aphasia. He is unable to identify glasses, calls them eyes or plastic . 07/29: CT head was negative for acute process. (2) Acute UTI: Code(s): N39.0 - Urinary tract infection, site not specified Status: Acute Assessment and Plan: UA obtained in the outpatient setting consistent with urinary tract infection. Patient was started on oral antibiotic by Nephrology but he continued to get weaker so he came to the emergency department. Patient started on ceftriaxone IV and admitted. Angeles catheter inserted in ER with much difficulty. Patient got ceftriaxone before UA/culture in our system. WBC 29. 07/28: WBC down to 19 today. Continue with abx and awaiting urine culture results. Urine to angeles bag is yellow and cloudy. 07/29: WBC 9.9. Urine culture with no growth. Given patient's complaints of cystitis, elevated WBC, and quality of urine, will continue with antibiotics for 7 days. Stopped Rocephin and transitioned to Augmentin through 08/02. (3) Sepsis: Code(s): A41.9 - Sepsis, unspecified organism Status: Acute Assessment and Plan: Patient tachycardic tachypneic with elevated white blood cell count and weakness. Source is urinary tract infection. Blood cultures in process. Urine culture ordered. Lactic negative. 07/28: Blood cultures with NGTD. Still awaiting urine culture. SBP 117-107, afebrile, HR 70-90's. Strict I's and O's. 07/29: Blood cultures NGTD. Urine culture negative. (4) Benign prostatic hyperplasia with lower urinary tract symptoms: Code(s): N40.1 - Benign prostatic hyperplasia with lower urinary tract symptoms Status: Acute Assessment and Plan: Angeles catheter inserted in the emergency department with much difficulty. This should not be auto discontinued without provider order. Nursing staff made aware of this. 07/28: Flomax started. 07/29: Difficulty with hematuria and unable to pass clots last night. Urine is less red today and free flowing. Will continue angeles catheter today and monitor overnight for recurrent hematuria. (5) Generalized weakness: Code(s): R53.1 - Weakness Status: Acute Assessment and Plan: Patient was unable to stand and ambulate at home due to profound weakness related to urinary tract infection. PT/OT consulted and recommendations are appreciated. * Fall precautions 07/28: Using gallito steady for transfers per care coordination. PT/OT will eval him. 07/29: Did fairly well working with PT/OT today. Was seen walking the halls with PT with wheeled walker. (6) CKD (chronic kidney disease) stage 3, GFR 30-59 ml/min: Code(s): N18.30 - Chronic kidney disease, stage 3 unspecified Status: Acute Assessment and Plan: s/p left nephrectomy, appears to be at baseline CKD status. * BLE with trace edema. Veno
[2023-07-30] MEDS: POTASSIUM CHLORIDE 10 MEQ ER TABLET PO (09:29)
[2023-07-30] MEDS: PANTOPRAZOLE 40 MG TABLET PO (09:29)
[2023-07-30] MEDS: TAMSULOSIN HCL 0.4 MG CAPSULE PO (09:29)
[2023-07-30] MEDS: amLODIPine BESYLATE 5 MG TABLET 10 MG PO (09:29)
[2023-07-30] MEDS: APIXABAN 5 MG TABLET PO (09:29)
[2023-07-30] MEDS: DOCUSATE SODIUM 100 MG CAPSULE PO (09:29)
[2023-07-30] MEDS: FUROSEMIDE 20 MG TABLET PO (09:30)
[2023-07-30] MEDS: FENOFIBRATE,MICRONIZED 48 MG TABLET PO (09:30)
[2023-07-30] MEDS: AMOXICILLIN/CLAVULANATE K 875-125 MG TAB 1 TABLET PO (09:30)
[2023-07-30] MEDS: ASCORBIC ACID 500 MG TABLET 1000 MG PO (09:30)
[2023-07-30] MEDS: ASPIRIN 81 MG ENTERIC TABLET PO (09:30)
[2023-07-30] MEDS: MULTIVITAMINS THERAPEUTIC TAB (*BKC) 1 TABLET PO (09:30)
[2023-07-30] MEDS: ACETAMINOPHEN 325 MG TABLET 650 MG PO (09:30)
--- NOTE | 2023-07-30 11:03 | PM.DS ---
DS: Admitting Diagnosis Discharge Date 07/30 Admitting Diagnosis Weakness DS: Discharge Diagnosis Discharge Diagnosis (1) Acute alteration in mental status: Code(s): R41.82 - Altered mental status, unspecified Status: Acute (2) Acute UTI: Code(s): N39.0 - Urinary tract infection, site not specified Status: Acute (3) Sepsis: Code(s): A41.9 - Sepsis, unspecified organism Status: Acute (4) Benign prostatic hyperplasia with lower urinary tract symptoms: Code(s): N40.1 - Benign prostatic hyperplasia with lower urinary tract symptoms Status: Acute (5) Generalized weakness: Code(s): R53.1 - Weakness Status: Acute (6) CKD (chronic kidney disease) stage 3, GFR 30-59 ml/min: Code(s): N18.30 - Chronic kidney disease, stage 3 unspecified Status: Acute (7) Essential (primary) hypertension: Code(s): I10 - Essential (primary) hypertension Status: Acute (8) MELANIE on CPAP: Code(s): G47.33 - Obstructive sleep apnea (adult) (pediatric); Z99.89 - Dependence on other enabling machines and devices Status: Acute (9) Chronic obstructive pulmonary disease: Code(s): J44.9 - Chronic obstructive pulmonary disease, unspecified Status: Acute (10) Atrial fibrillation: Code(s): I48.91 - Unspecified atrial fibrillation Status: Acute Plan (1) Acute alteration in mental status: ?Code(s): R41.82 - Altered mental status, unspecified ?Status:?Acute ?Assessment and Plan: Last known well at completion of therapy around ~ 1230. Was A&Ox4. Now, 1330 thinks he is at his home in his chair. VS at 1200 96.8, HR 111, RR 20, 96% on room air, 177/85. Recently was started on Eliquis for a-fib on arrival to the hospital. Acute mental status change, will complete stat head CT to r/o acute stroke. SOB after exertion with therapy. Chest XR shows mild pulmonary congestion, will give lasix x 1 40 mg IVP. Albuterol x1. Not requiring oxygen. A-fib, rate 100's. Will check troponin and EKG. Infection has been resolving. WBC 9.9, afebrile. NIH was 6 scoring for right sided upper arm and lower arm motor drift and mild aphasia. He is unable to identify glasses, calls them eyes or plastic .07/29: CT head was negative for acute process. (2) Acute UTI: ?Code(s): N39.0 - Urinary tract infection, site not specified ?Status:?Acute ?Assessment and Plan: UA obtained in the outpatient setting consistent with urinary tract infection.? Patient was started on oral antibiotic by Nephrology but he continued to get weaker so he came to the emergency department.? Patient started on ceftriaxone IV and admitted.? Angeles catheter inserted in ER with much difficulty.? Patient got ceftriaxone before UA/culture in our system.? WBC 29. 07/28: WBC down to 19 today. Continue with abx and awaiting urine culture results. Urine to angeles bag is yellow and cloudy. 07/29: WBC 9.9. Urine culture with no growth. Given patient's complaints of cystitis, elevated WBC, and quality of urine, will continue with antibiotics for 7 days. Stopped Rocephin and transitioned to Augmentin through 08/02. (3) Sepsis: ?Code(s): A41.9 - Sepsis, unspecified organism ?Status:?Acute ?Assessment and Plan: Patient tachycardic tachypneic with elevated white blood cell count and weakness.? Source is urinary tract infection.? Blood cultures in process.? Urine culture ordered. Lactic negative. 07/28: Blood cultures with NGTD. Still awaiting urine culture. SBP 117-107, afebrile, HR 70-90's. Strict I's and O's. 07/29: Blood cultures NGTD. Urine culture negative. (4) Benign prostatic hyperplasia with lower urinary tract symptoms: ?Code(s): N40.1 - Benign prostatic hyperplasia with lower urinary tract symptoms ?Status:?Acute ?Assessment and Plan: Angeles catheter inserted in the emergency department with much difficulty.? This should not be auto discontinued without provider
== END 2023-07-30 16:40 | disposition home health service (06) | DRG 872 ==
LOC: ANHED 07-27 06:01 → ANH3MEDSUR 07-27 06:30
PROVIDERS: Nurse Practitioner; Admitting Provider Internal Medicine; Emergency Provider Emergency Medicine; PCP Family Medicine; Visit Provider Nurse Practitioner Acute Care
DX: A41.9 Sepsis, unspecified organism (principal); N39.0 Urinary tract infection, site not specified; Z68.41 Body mass index [BMI] 40.0-44.9, adult; I12.9 Hypertensive chronic kidney disease with stage 1 through stage 4 chronic kidney disease, or unspecified chronic kidney disease; G47.33 Obstructive sleep apnea (adult) (pediatric); J44.9 Chronic obstructive pulmonary disease, unspecified; R41.0 Disorientation, unspecified; E66.9 Obesity, unspecified; N18.30 Chronic kidney disease, stage 3 unspecified; N40.1 Benign prostatic hyperplasia with lower urinary tract symptoms; Z20.822 Contact with and (suspected) exposure to COVID-19; Z86.718 Personal history of other venous thrombosis and embolism; Z90.49 Acquired absence of other specified parts of digestive tract; Z87.891 Personal history of nicotine dependence; Z90.79 Acquired absence of other genital organ(s); Z96.643 Presence of artificial hip joint, bilateral; Z90.5 Acquired absence of kidney; Z79.82 Long term (current) use of aspirin; I48.91 Unspecified atrial fibrillation; Z85.50 Personal history of malignant neoplasm of unspecified urinary tract organ
CPT/HCPCS: 36415; 70450; 71045; 74176; 80053; 81001; 83605; 83735; 84145; 84484; 85025; 85610; 85730; 87040; 87086; 87637; 93005; 93306; 93970; 94002; 94640; 96361; 96365; 96366; 96375; 97110; 97116; 97161; 97165; 99285; A9270; G0378; J0696; J1940; J2405; J7030

== ENCOUNTER 2023-09-06 07:47 | Outpatient (CLI) | payer MEDICARE, OTHER, SELFPAY ==
--- NOTE | 2023-09-06 13:13 | WPDSIXMINUTE ---
Six Minute Walk Procedure Procedure Performed Pulmonary Stress Test (6 min walk) Six Minute Walk Six Minute Walk: This is a 6 minute walk test. The test was performed and interpreted in accordance with the 2014 ERS/ATS task force guidelines. Findings: The patient's resting room air oxygen saturation measured by pulse oximetry was 93% and heart rate was 78 bpm. Patient ambulated for 182 meters and oxygen saturation remained 92 to 95%. Heart rate at the end of the study was 125 bpm. The patient did not qualify for supplemental oxygen at rest or with ambulation. There are no prior studies for comparison.
--- NOTE | 2023-09-06 13:14 | WPDPFTINT ---
PFT Procedure Performed PFT Procedure Performed Spirometry with Pre/Post Bronchodilator Plethysmography (Lung Vol) Diffusing Cap (DLCO) Flow Vol Loop PFT Interpretation This is a pulmonary function test with pre and post-bronchodilator spirometry, plethysmography and diffusing capacity. The test was performed and results interpreted in accordance with the 2019 and 2005 ATS/ERS Task Force guidelines respectively using the Global Lung Function Initiative-2012 reference equations. Patient demonstrated good effort and cooperation. Reproducibility criteria were met. The quality of the pre bronchodilator spirometry maneuver was Grade B and post bronchodilator spirometry maneuver was Grade B. Findings: Spirometry: There is decreased maximal expiratory airflow at all lung volumes with concave expiratory flow tracing. The contour the inspiratory flow tracing is normal. The pre bronchodilator FVC is 3.25 L, 76% predicted. The pre bronchodilator FEV1 is 1.54 L, 49% predicted. The pre bronchodilator FEV1: FVC ratio is 47% predicted. The post bronchodilator FVC is 3.17 L, representing a 3% decrease. The post bronchodilator FEV1 is 1.61 L, representing a 5% increase. The post bronchodilator FEV1: FVC ratio is 51%. Plethysmography: The total lung capacity is 7.42 L, 97% predicted. The functional residual capacity is 5.04 L, 121% predicted. The residual volume is 4.16 L, 148% predicted. The residual volume to total lung capacity ratio is 56% predicted. Diffusing capacity: The diffusing capacity unadjusted for hemoglobin and carboxyhemoglobin is 15.5, 62% predicted. The diffusing capacity adjusted for alveolar volume is 3.80, 110% predicted. Impression: There is a severe obstructive abnormality. The increase in residual volume to total lung volume ratio is consistent with hyperinflation from an obstructive abnormality. The diffusing capacity unadjusted for hemoglobin and carboxyhemoglobin is mildly decreased and normalizes when adjusted for alveolar volume. There are no prior studies for comparison
== END 2023-09-06 07:48 | disposition home or self-care (01) ==
LOC: ANHPFT 07:48
PROVIDERS: PCP Family Medicine; Visit Provider Physician Assistant
DX: J44.9 Chronic obstructive pulmonary disease, unspecified (principal); R94.2 Abnormal results of pulmonary function studies
CPT/HCPCS: 94060; 94618; 94726; 94729

== ENCOUNTER 2023-09-30 00:22 | Day surgery (SDC) | payer MEDICARE, OTHER, SELFPAY ==
[2023-09-15 11:38] VITALS: BMI 41.3
--- NOTE | 2023-09-28 09:05 | SUR.PREOP ---
Patient called regarding upcoming procedure. Message left on pt's voicemail regarding appointment times.
--- NOTE | 2023-09-29 09:22 | PC.NURSE ---
09/15/2023 Spoke with patient and daughter, Roxana, regarding medication Eliquis. Pt. and daughter verbalizes understanding that the last dose of Eliquis is to be taken on 09/27/2023 and the Endoscopist will instruct them when to restart after the procedure.
--- NOTE | 2023-09-29 16:07 | PM.HPGS ---
History of Present Illness History of Present Illness Consent: Risks, benefits, and alternatives have been discussed and questions answered. Patient agrees to proceed with procedure. Chief complaint: dysphagia,hx malignant neoplasm large intestine, Narrative: Jason Daigle is a 78 year old male Who we are asked to see ?for dysphagia.? He has past medical history of obstructive sleep apnea on CPAP, a fib, COPD, HTN, hyperlipidemia, h/o colon cancer, h/o renal cell cancer with left kidney removed, RLE DVT, BPH, CKD, MELANIE on CPAP, back pain, LE edema.? Reports dysphagia with choking and aspirating intermittently.? He states the flap in his esophagus does not close and the food will go into his lungs and cause him to feel short of breath and choke.?He does not feel that food gets stuck. Rather he states that things are going down the wrong pipe. Most recently cauliflower got into his lungs and took him time to cough it back out. He denies any typical or atypical GERD symptoms.? Denies any abdominal pain, nausea, vomiting, decreased appetite her appetite loss.? He does report being diagnosed with colon cancer around 2014 and had colon resection-no chemo or radiation.? He believes he had a follow-up colonoscopy around 1 year after surgery at the [facility] but has not had a colonoscopy since. Review of Systems Review of Systems: All systems reviewed & are unremarkable except as noted in HPI and below PMFSH Past Medical History Medical History Benign prostatic hyperplasia Chronic kidney disease Chronic obstructive pulmonary disease CKD (chronic kidney disease) stage 3, GFR 30-59 ml/min Constipation COPD (chronic obstructive pulmonary disease) Gross hematuria Hearing loss History of tobacco abuse Impaired fasting glucose Obesity Obstructive sleep apnea on CPAP Oropharyngeal dysphagia MELANIE on CPAP Right leg DVT Surgical History Surgical History H/O left nephrectomy History of appendectomy History of bilateral hip arthroplasty History of left nephrectomy History of partial colectomy Hx of colectomy Hx of transurethral resection of prostate Sacral nerve stimulator present Family History Family History Sibling Malignant neoplasm of prostate Family history of pancreatic cancer Family history of lung cancer Social History Social History Social History: Surrogate medical decision maker: Roxana Quintanilla, daughter. Code status: Full code. Smoking packs per day: 1 Smoking cigarettes per day: 20.0 Years smoked: 63 Smoking pack-years: 63.00 Smoking status: Former smoker Tobacco type: cigarettes Second hand tobacco smoke exposure: No Alcohol intake: current Drinks per week: 4 Alcohol use details: 5-6 BEERS/WEEK Substance use: never Substance use type: does not use Lack of Transportation: No Lack of Food: Never True Current Housing: Decline to Answer Concerned About Future Housing: Decline to Answer Difficulty Paying Gas/Electric Bills: Decline to Answer Difficulty Paying for Meds: Decline to Answer Currently Unemployed: Decline to Answer Education: Decline to Answer Difficulty w/ Childcare or Family Care: Decline to Answer Living arrangements: with family Additional living arrangements comments: DAUGHTER AND MIN Occupation/Education: retired Additional occupation/education comments: 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 Gender identity (if verbalized by the patient): Male Spiritual care concerns: No Meds Home Medications and Allergies Home Medications Medication Instructions Recorded Confirmed Type aspirin 81 mg tablet,delayed 81 mg PO DAILY 08/17/19 09/15/23 History release ascorbic acid (vitamin C) 1,000 mg 1,000 mg PO DAILY
[2023-09-30 11:42] VITALS: BP 149/95; PULSE 77; RESP 20; TEMP 36.1; O2SAT 99
[2023-09-30] MEDS: LACTATED RINGERS 1,000 ML 150 ML IV CONT (11:59)
--- NOTE | 2023-09-30 12:28 | WPDANESEPPF ---
Anes - Initial Pre Proc Eval Procedure: Operation Date: 09/30/23 12:30 Proposed Procedures p Esophagogastroduodenoscopy & Colonoscopy - Jacques Maldonado MD Date/Time: 09/30/23 12:28 Surgeon: Jacques Maldonado MD Pre Op Diagnosis: dysphagia,hx malignant neoplasm large intestine, Patient Data Age: 78 Gender: M Height: 1.85 m Weight: 140.7 kg Last Vital Signs Temp 36.1 C L 09/30/23 11:42 Pulse 77 09/30/23 11:42 Resp 20 09/30/23 11:42 BP 149/95 H 09/30/23 11:42 Pulse Ox 99 09/30/23 11:42 O2 Del Method Room Air 09/30/23 11:42 Allergies Allergy/AdvReac Type Severity Reaction Status Date / Time morphine Allergy Severe Confusion/Severe Verified 09/30/23 11:37 agitation/AGRESSIVE Home Medications Medication Instructions Recorded Confirmed Type aspirin 81 mg tablet,delayed 81 mg PO DAILY 08/17/19 09/15/23 History release ascorbic acid (vitamin C) 1,000 mg 1,000 mg PO DAILY 07/21/21 09/15/23 History tablet furosemide 20 mg tablet (Lasix) 20 mg PO QAM 07/21/21 09/15/23 History multivitamin 1 tablet PO DAILY 07/21/21 09/15/23 History albuterol sulfate 90 mcg/actuation 1 - 2 puff inhalation Q4-6H PRN 04/20/23 09/15/23 Rx aerosol inhaler shortness of breath or wheezing #25.5 grams sildenafil 100 mg tablet See Rx Instructions .Route 05/11/23 09/15/23 Rx .COMPLEX #14 tabs pantoprazole 40 mg tablet,delayed 40 mg PO QAM #90 tabs 06/16/23 09/15/23 Rx release (Protonix) apixaban 5 mg tablet (Eliquis) 5 mg PO Q12HR a-fib #60 tabs 07/30/23 09/15/23 Rx tiotropium 2.5 mcg-olodaterol 2.5 2 puff inhalation DAILY #3 ea 08/02/23 09/15/23 Rx mcg/actuation mist for inhalation (Stiolto Respimat) gabapentin 100 mg capsule 100 mg PO HS #90 caps 08/05/23 09/15/23 Rx potassium chloride 10 mEq 10 meq PO DAILY #90 tabs 08/05/23 09/15/23 Rx tablet,extended release albuterol sulfate 2.5 mg/3 mL 2.5 mg (3 mL) inhalation Q4-6H PRN 08/24/23 09/15/23 Rx (0.083 %) solution for nebulization shortness of breath or wheezing #90 mL amlodipine 5 mg tablet (Norvasc) 10 mg PO QAM 09/15/23 09/15/23 History docusate sodium 100 mg capsule 100 mg PO BID 09/15/23 09/15/23 History (Colace) finasteride 5 mg tablet 5 mg PO DAILY 09/15/23 09/15/23 History tamsulosin 0.4 mg capsule 0.4 mg PO HS 09/15/23 09/15/23 History umeclidinium 62.5 mcg-vilanterol 2 inh inhalation DAILY 09/15/23 09/15/23 History 25 mcg/actuation powdr for inhalation (Anoro Ellipta) fenofibrate 54 mg tablet See Rx Instructions .Route 09/20/23 09/30/23 Rx .COMPLEX #90 tabs Patient hx anesthesia problems: none Family hx anesthesia problems: none Results Review: All pre-operative results and documents have been reviewed as part of the pre-operative evaluation. [facility] Past Medical History Medical History Benign prostatic hyperplasia Chronic kidney disease Chronic obstructive pulmonary disease CKD (chronic kidney disease) stage 3, GFR 30-59 ml/min Constipation COPD (chronic obstructive pulmonary disease) Gross hematuria Hearing loss History of tobacco abuse Impaired fasting glucose Obesity Obstructive sleep apnea on CPAP Oropharyngeal dysphagia MELANIE on CPAP Right leg DVT Surgical History Surgical History H/O left nephrectomy History of appendectomy History of bilateral hip arthroplasty History of left nephrectomy History of partial colectomy Hx of colectomy Hx of transurethral resection of prostate Sacral nerve stimulator present Family History Family History Sibling Malignant neoplasm of prostate Family history of pancreatic cancer Family history of lung cancer Social History Social History Social History: Surrogate medical decision maker: la Carter
--- NOTE | 2023-09-30 12:48 | SUR.OPER ---
EGD: [id number] COLON: Start 1243
[2023-09-30 13:03] VITALS: BP 131/66; PULSE 104; RESP 20; O2SAT 99
[2023-09-30 13:13] VITALS: BP 117/71; PULSE 88; RESP 20; O2SAT 97
[2023-09-30 13:23] VITALS: BP 112/65; PULSE 85; RESP 22; O2SAT 97
== END 2023-09-30 13:42 | disposition home or self-care (01) ==
PROVIDERS: PCP Family Medicine; Visit Provider Internal Medicine Gastroenterology
PROC: 0DJ08ZZ Inspection of Upper Intestinal Tract, Via Natural or Artificial Opening Endoscopic (ICD-10-PCS; CPT 43235; principal; 2023-09-30 12:30)
DX: Z12.11 Encounter for screening for malignant neoplasm of colon (principal); K21.00 Gastro-esophageal reflux disease with esophagitis, without bleeding; K22.70 Barrett's esophagus without dysplasia; J44.9 Chronic obstructive pulmonary disease, unspecified; G47.33 Obstructive sleep apnea (adult) (pediatric); I12.9 Hypertensive chronic kidney disease with stage 1 through stage 4 chronic kidney disease, or unspecified chronic kidney disease; N18.30 Chronic kidney disease, stage 3 unspecified; N40.0 Benign prostatic hyperplasia without lower urinary tract symptoms; E66.01 Morbid (severe) obesity due to excess calories; Z68.41 Body mass index [BMI] 40.0-44.9, adult; Z99.89 Dependence on other enabling machines and devices; Z79.82 Long term (current) use of aspirin; Z79.51 Long term (current) use of inhaled steroids; Z79.01 Long term (current) use of anticoagulants; Z98.890 Other specified postprocedural states; Z90.49 Acquired absence of other specified parts of digestive tract; Z90.5 Acquired absence of kidney; Z98.0 Intestinal bypass and anastomosis status; Z96.82 Presence of neurostimulator; Z87.891 Personal history of nicotine dependence; Z85.038 Personal history of other malignant neoplasm of large intestine; Z86.79 Personal history of other diseases of the circulatory system; Z86.718 Personal history of other venous thrombosis and embolism; Z80.0 Family history of malignant neoplasm of digestive organs; Z80.1 Family history of malignant neoplasm of trachea, bronchus and lung; Z80.42 Family history of malignant neoplasm of prostate
CPT/HCPCS: 43239; G0105; 88305; J2001; J2704; J7120

== ENCOUNTER 2023-10-18 11:46 | Outpatient (CLI) | payer MEDICARE, OTHER, SELFPAY ==
[2023-10-18 12:38] LABS: Albumin Level 4.2 g/dL (3.5-5.1); Anion Gap 5 mmol/L (8-16); Blood Urea Nitrogen 17 mg/dL (9-20); Calcium 9.4 mg/dL (8.4-10.2); Carbon Dioxide 32 mmol/L (22-30); Chloride 102 mmol/L (98-107); Estimated Glomerular Filt Rate 49; Glucose 93 mg/dL (65-110); Phosphorus 2.7 mg/dL (2.5-4.5); Potassium 3.9 mmol/L (3.4-5.0); Sodium 139 mmol/L (137-145)
[2023-10-18 14:48] LABS: Creatinine Urine 62.5 mg/dL; Total Protein Urine Random 12 mg/dL; Ur Ttl Prot Creatinine Ratio 0.19 mg/mg (0-0.20)
== END 2023-10-18 11:47 | disposition home or self-care (01) ==
LOC: ANHLAB 11:49
PROVIDERS: PCP Family Medicine; Visit Provider Internal Medicine Nephrology
DX: N18.31 Chronic kidney disease, stage 3a (principal); Z90.5 Acquired absence of kidney
CPT/HCPCS: 36415; 80069; 82570; 84156

== ENCOUNTER 2023-12-30 01:10 | Day surgery (SDC) | payer MEDICARE, OTHER, SELFPAY ==
[2023-12-29 13:40] VITALS: BMI 40.8
--- NOTE | 2023-12-30 09:00 | ECG_ITS ---
SEE SCANNED COPY FOR CONFIRMED REPORT MTDD
--- NOTE | 2023-12-30 09:59 | WPDANESEPPF ---
Anes - Initial Pre Proc Eval Procedure: Operation Date: 12/30/23 10:30 Proposed Procedures p Electrical Cardioversion - Rea Stark MD Date/Time: 12/30/23 09:59 Surgeon: Rea Stark MD Pre Op Diagnosis: AFIB Patient Data Age: 78 Gender: M Height: 1.83 m Weight: 136.4 kg Allergies Allergy/AdvReac Type Severity Reaction Status Date / Time morphine Allergy Severe Confusion/Severe Verified 12/30/23 09:50 agitation/AGRESSIVE Home Medications Medication Instructions Recorded Confirmed Type aspirin 81 mg tablet,delayed 81 mg PO DAILY 08/17/19 12/29/23 History release ascorbic acid (vitamin C) 1,000 mg 1,000 mg PO DAILY 07/21/21 12/29/23 History tablet furosemide 20 mg tablet (Lasix) 20 mg PO QAM 07/21/21 12/29/23 History multivitamin 1 tablet PO DAILY 07/21/21 12/29/23 History sildenafil 100 mg tablet See Rx Instructions .Route 05/11/23 12/29/23 Rx .COMPLEX #14 tabs pantoprazole 40 mg tablet,delayed 40 mg PO QAM #90 tabs 06/16/23 12/29/23 Rx release (Protonix) apixaban 5 mg tablet (Eliquis) 5 mg PO Q12HR a-fib #60 tabs 07/30/23 12/30/23 Rx tiotropium 2.5 mcg-olodaterol 2.5 2 puff inhalation DAILY #3 ea 08/02/23 12/29/23 Rx mcg/actuation mist for inhalation (Stiolto Respimat) gabapentin 100 mg capsule 100 mg PO HS #90 caps 08/05/23 12/29/23 Rx potassium chloride 10 mEq 10 meq PO DAILY #90 tabs 08/05/23 12/29/23 Rx tablet,extended release albuterol sulfate 2.5 mg/3 mL 2.5 mg (3 mL) inhalation Q4-6H PRN 08/24/23 12/29/23 Rx (0.083 %) solution for nebulization shortness of breath or wheezing #90 mL docusate sodium 100 mg capsule 100 mg PO BID 09/15/23 12/29/23 History (Colace) tamsulosin 0.4 mg capsule 0.4 mg PO HS 09/15/23 12/29/23 History albuterol sulfate 90 mcg/actuation 1 - 2 inh inhalation Q4-6H PRN 12/29/23 12/29/23 History aerosol inhaler sob/wheezing fenofibrate 54 mg tablet 54 mg PO DAILY 12/29/23 12/29/23 History Laboratory Tests 12/30/23 09:46 Sodium Pending Potassium Pending Chloride Pending Carbon Dioxide Pending Anion Gap Pending BUN Pending Creatinine Pending Estim Creat Clear Calc Pending Estimated GFR Pending Glucose Pending Calcium Pending Magnesium Pending Patient hx anesthesia problems: none Family hx anesthesia problems: none Results Review: All pre-operative results and documents have been reviewed as part of the pre-operative evaluation. [facility] Past Medical History Medical History Benign prostatic hyperplasia Chronic kidney disease Chronic obstructive pulmonary disease CKD (chronic kidney disease) stage 3, GFR 30-59 ml/min Constipation COPD (chronic obstructive pulmonary disease) Gross hematuria Hearing loss History of tobacco abuse Impaired fasting glucose Obesity Obstructive sleep apnea on CPAP Oropharyngeal dysphagia MELANIE on CPAP Right leg DVT Surgical History Surgical History H/O left nephrectomy History of appendectomy History of bilateral hip arthroplasty History of left nephrectomy History of partial colectomy Hx of colectomy Hx of transurethral resection of prostate Sacral nerve stimulator present Family History Family History Sibling Malignant neoplasm of prostate Family history of lung cancer Family history of pancreatic cancer Hypertension Father Chronic obstructive pulmonary disease Social History Social History Social History: Surrogate medical decision maker: Roxana Quintanilla, daughter. Code status: Full code. Smoking packs per day: 2 Smoking cigarettes per day: 40.0 Years smoked: 40 Smoking pack-years: 80.00 Smoking status: Former smoker Tobacco type: cigarettes Second hand tobac
--- NOTE | 2023-12-30 10:00 | WPDHPUPDATE1 ---
History and Physical Update Update Date/Time: 12/30/23 10:00 History and Physical has been reviewed, including an updated exam of the patient. There are NO changes in the patient's condition. Risks, benefits, and alternatives have been discussed and questions answered. Patient agrees to proceed with procedure.
[2023-12-30 10:03] LABS: Anion Gap 5 mmol/L (4-12); Blood Urea Nitrogen 16 mg/dL (9-20); Calcium 9.2 mg/dL (8.4-10.2); Carbon Dioxide 26 mmol/L (22-30); Chloride 106 mmol/L (98-107); Estimated CRCL calculation 54 ml/min; Estimated Glomerular Filt Rate 49; Glucose 110 mg/dL (65-110); Magnesium 1.8 mg/dL (1.6-2.3); Potassium 3.9 mmol/L (3.4-5.0); Sodium 137 mmol/L (137-145)
--- NOTE | 2023-12-30 10:45 | ECG_ITS ---
SEE SCANNED COPY FOR CONFIRMED REPORT MTDD
--- NOTE | 2023-12-30 10:49 | WPDCARDVER ---
Cardioversion Cardioversion Date of procedure: 12/30/23 Procedure: Synchronized electrical cardioversion Pre-op diagnosis: Atrial fibrillation Post-op diagnosis: Other (Sinus rhythm ) Indications: Atrial fibrillation Description of procedure: Defibrillator pads placed in an AP position. Time out performed by Allyson Mauro RN. Sedation administered by the Anesthesia team. Once patient was adequately sedation, synchronized electrical cardioversion performed at 250 joules, however, patient remained in sinus rhythm. Synchronized electrical cardioversion performed again at 300 joules, however, patient appeared to be in atrial flutter. Synchronized electrical cardioversion performed for the third time at 360 joules, which converted patient to sinus rhythm with first degree AVB. No periprocedural complications. Sedation: Sedation administered by the Anesthesia team. Findings: Successful cardioversion to sinus rhythm after total of 3 shocks. Conclusion: Successful cardioversion to sinus rhythm after total of 3 shocks.
[2023-12-30 10:55] VITALS: BP 114/70; PULSE 76; RESP 20; O2SAT 96
[2023-12-30 11:00] VITALS: BP 157/62; PULSE 73; RESP 20; O2SAT 96
[2023-12-30 11:15] VITALS: BP 122/82; PULSE 72; RESP 18; O2SAT 96
[2023-12-30 11:30] VITALS: BP 142/82; PULSE 81; RESP 15; TEMP 36.2; O2SAT 98
== END 2023-12-30 11:55 | disposition home or self-care (01) ==
PROVIDERS: PCP Family Medicine; Referring Provider Internal Medicine Cardiovascular Disease; Visit Provider Internal Medicine
PROC: 5A2204Z Restoration of Cardiac Rhythm, Single (ICD-10-PCS; principal; 2023-12-30 10:30)
DX: I48.19 Other persistent atrial fibrillation (principal); I12.9 Hypertensive chronic kidney disease with stage 1 through stage 4 chronic kidney disease, or unspecified chronic kidney disease; N18.30 Chronic kidney disease, stage 3 unspecified; G47.33 Obstructive sleep apnea (adult) (pediatric); G89.29 Other chronic pain; N52.9 Male erectile dysfunction, unspecified; R41.3 Other amnesia; J44.9 Chronic obstructive pulmonary disease, unspecified; N40.0 Benign prostatic hyperplasia without lower urinary tract symptoms; E66.01 Morbid (severe) obesity due to excess calories; Z68.41 Body mass index [BMI] 40.0-44.9, adult; Z79.82 Long term (current) use of aspirin; Z79.51 Long term (current) use of inhaled steroids; Z79.01 Long term (current) use of anticoagulants; Z99.89 Dependence on other enabling machines and devices; Z98.890 Other specified postprocedural states; Z96.82 Presence of neurostimulator; Z90.49 Acquired absence of other specified parts of digestive tract; Z98.1 Arthrodesis status; Z87.891 Personal history of nicotine dependence; Z86.718 Personal history of other venous thrombosis and embolism; Z85.038 Personal history of other malignant neoplasm of large intestine; Z80.42 Family history of malignant neoplasm of prostate; Z80.0 Family history of malignant neoplasm of digestive organs; Z80.1 Family history of malignant neoplasm of trachea, bronchus and lung
CPT/HCPCS: 36415; 80048; 83735; 92960; J2704; J7040

== ENCOUNTER 2024-02-01 13:30 | Outpatient (RCR) | payer MEDICARE, OTHER, SELFPAY | END 2024-02-01 23:59 | disposition home or self-care (01) | LOC: ANHCPREHAB 13:30 | PROVIDERS: PCP Family Medicine; Visit Provider Internal Medicine Critical Care Medicine | DX: J44.9 Chronic obstructive pulmonary disease, unspecified (principal) | CPT/HCPCS: 94625 ==

== ENCOUNTER 2024-02-14 09:28 | Outpatient (CLI) | payer MEDICARE, OTHER, SELFPAY ==
[2024-02-14 10:30] LABS: Total Protein Urine Random 7 mg/dL; Ur Ttl Prot Creatinine Ratio 0.06 mg/mg (0-0.20)
[2024-02-14 10:32] LABS: Albumin Level 4.1 g/dL (3.5-5.1); Anion Gap 7 mmol/L (4-12); Blood Urea Nitrogen 21 mg/dL (9-20); Calcium 9.3 mg/dL (8.4-10.2); Carbon Dioxide 30 mmol/L (22-30); Chloride 103 mmol/L (98-107); Estimated Glomerular Filt Rate 49; Glucose 106 mg/dL (65-110); Phosphorus 3.2 mg/dL (2.5-4.5); Potassium 4.1 mmol/L (3.4-5.0); Sodium 140 mmol/L (137-145)
[2024-02-14 10:40] LABS: Parathyroid Intact 38.2 pg/mL (7.5-53.5)
[2024-02-14 10:56] LABS: Vitamin D 25 Hydroxy 90.8 ng/mL
== END 2024-02-14 09:29 | disposition home or self-care (01) ==
LOC: ANHLAB 09:31
PROVIDERS: PCP Family Medicine; Visit Provider Internal Medicine Nephrology
DX: E55.9 Vitamin D deficiency, unspecified (principal); N18.31 Chronic kidney disease, stage 3a; Z90.5 Acquired absence of kidney; N25.81 Secondary hyperparathyroidism of renal origin
CPT/HCPCS: 36415; 80069; 82306; 82570; 83970; 84156

== ENCOUNTER 2024-02-22 11:23 | Outpatient (CLI) | payer MEDICARE, OTHER, SELFPAY ==
[2024-02-22 13:14] LABS: Prostate Specific Antigen 3.6 ng/mL (< OR = 4.0)
== END 2024-02-22 11:24 | disposition home or self-care (01) ==
PROVIDERS: PCP Family Medicine; Visit Provider Urology
DX: N40.1 Benign prostatic hyperplasia with lower urinary tract symptoms (principal); R97.20 Elevated prostate specific antigen [PSA]
CPT/HCPCS: 36415; 84153

== ENCOUNTER 2024-03-03 12:50 | Outpatient (CLI) | payer MEDICARE, OTHER, SELFPAY ==
[2024-03-03 15:21] LABS: Appearance Urine Clear (Clear); Bilirubin Urine Negative (Negative); Blood Urine Negative (Negative); Color Urine Yellow (Yellow); Glucose Urine UA Negative (Negative); Ketones Urine Negative (Negative); Leukocyte Esterase Ur Negative LEU/UL (Negative); Nitrate Urine Negative (Negative); Protein Urine Negative (Negative); Specific Grav Ur 1.007 (1.001-1.035); Urobilinogen Urine 0.2 mg/dL (<2.0); pH Urine 5.5 (5.0-9.0)
[2024-03-03 15:26] LABS: Add Urine Microscopic? NO
== END 2024-03-03 12:51 | disposition home or self-care (01) ==
PROVIDERS: PCP Family Medicine; Visit Provider Physician Assistant
DX: N39.0 Urinary tract infection, site not specified (principal); R30.0 Dysuria
CPT/HCPCS: 81003; 87086

== ENCOUNTER 2024-04-07 13:30 | Outpatient (RCR) | payer MEDICARE, OTHER, SELFPAY | END 2024-05-29 07:13 | disposition home or self-care (01) | LOC: ANHCPREHAB 13:30 | PROVIDERS: PCP Family Medicine; Visit Provider Internal Medicine Critical Care Medicine | DX: J44.9 Chronic obstructive pulmonary disease, unspecified (principal) | CPT/HCPCS: 81003; 87086; 94625 ==

== ENCOUNTER 2024-04-18 11:49 | Outpatient (CLI) | payer MEDICARE, OTHER, SELFPAY ==
[2024-04-18 13:00] LABS: Basophils Absolute Auto 0.1 K/mm3 (0.0-0.1); Basophils Percent Auto 0.8 % (0.2-1.2); Eosinophils Absolute Auto 0.2 K/mm3 (0-0.3); Eosinophils Percent Auto 1.8 % (0-4.4); Hematocrit 47.4 % (42.0-52.0); Hemoglobin 15.6 g/dL (14.0-18.0); Immature Granulocyte Absolute 0.05 K/mm3 (0.00-0.031); Immature Granulocyte Percent A 0.6 % (0-0.5); Lymphocytes Absolute Auto 2.47 K/mm3 (0.9-3.2); Lymphocytes Percent Auto 29.4 % (18.3-44.2); Mean Corpuscular HGB Conc 32.9 g/dl (32-36); Mean Corpuscular Hemoglobin 32.5 pg (26-34); Mean Corpuscular Volume 98.8 fl (80-100); Mean Platelet Volume 9.6 fl (7.4-10.4); Monocytes Absolute Auto 0.8 K/mm3 (0.1-0.6); Monocytes Percent Auto 9.9 % (2.6-8.5); Neutrophils Absolute Auto 4.8 K/mm3 (1.3-6.7); Neutrophils Percent Auto 57.5 % (45.5-73.1); Platelet Count Result 269 k/mm3 (150-375); Red Cell Distribution Width 13.5 % (11.5-14.5); White Blood Count 8.4 K/mm3 (4.5-10.0)
[2024-04-18 13:15] LABS: Anion Gap 9 mmol/L (4-12); Blood Urea Nitrogen 17 mg/dL (9-20); Calcium 9.3 mg/dL (8.4-10.2); Carbon Dioxide 31 mmol/L (22-30); Chloride 99 mmol/L (98-107); Estimated Glomerular Filt Rate 45; Glucose 103 mg/dL (65-110); Magnesium 1.8 mg/dL (1.6-2.3); Potassium 3.9 mmol/L (3.4-5.0); Sodium 139 mmol/L (137-145)
== END 2024-04-18 11:50 | disposition home or self-care (01) ==
LOC: ANHLAB 11:57
PROVIDERS: PCP Family Medicine; Visit Provider Internal Medicine Cardiovascular Disease
DX: I48.19 Other persistent atrial fibrillation (principal); Z01.812 Encounter for preprocedural laboratory examination
CPT/HCPCS: 36415; 80048; 83735; 85025

== ENCOUNTER 2024-04-26 13:02 | Outpatient (CLI) | payer MEDICARE, OTHER, SELFPAY ==
--- NOTE | 2024-04-27 11:23 | WPDSIXMINUTE ---
Six Minute Walk Procedure Procedure Performed Pulmonary Stress Test (6 min walk) Six Minute Walk Six Minute Walk: This is a 6 minute walk test. The test was performed and interpreted in accordance with the 2014 ERS/ATS task force guidelines. Of note, patient walked on room air with walking a due to bad knees. Findings: The patient's resting room air oxygen saturation measured by pulse oximetry was 96% and heart rate was 88 bpm. Patient ambulated for 183 meters and oxygen saturation remained 96 to 98%. Heart rate at the end of the study was 106 bpm. The patient did not qualify for supplemental oxygen at rest or with ambulation. Compared to 6 minute walk on 09/06/2023 the ambulatory distance is unchanged from 182 m to 183 m and margarita saturation is improved from 92% to 96%.
== END 2024-04-26 13:03 | disposition home or self-care (01) ==
PROVIDERS: PCP Family Medicine; Visit Provider Physician Assistant
DX: J44.9 Chronic obstructive pulmonary disease, unspecified (principal)
CPT/HCPCS: 94618

== ENCOUNTER 2024-06-07 10:32 | Outpatient (CLI) | payer MEDICARE, OTHER, SELFPAY ==
[2024-06-07 12:02] LABS: Influenza A QL RT-PCR Negative (Negative); Influenza B QL RT-PCR Negative (Negative); RSV RNA, RT-PCR Negative (Negative); SARS-CoV-2 RNA PCR Negative (Negative)
== END 2024-06-07 10:33 | disposition home or self-care (01) ==
PROVIDERS: PCP Family Medicine; Visit Provider Family Medicine
DX: R53.1 Weakness (principal); R05.9 Cough, unspecified
CPT/HCPCS: 87637

== ENCOUNTER 2024-06-13 09:44 | Outpatient (CLI) | payer MEDICARE, OTHER, SELFPAY ==
[2024-06-13 10:15] LABS: INR 1.1; Prothrombin Time 14.7 Seconds (11.1-14.7)
[2024-06-13 10:16] LABS: Partial Thromboplastin Time 35.4 Seconds (22.3-36.8)
== END 2024-06-13 09:45 | disposition home or self-care (01) ==
LOC: ANHSURGERY 09:49
PROVIDERS: Anesthesiology; PCP Family Medicine; Visit Provider Urology
DX: Z01.812 Encounter for preprocedural laboratory examination (principal); N18.31 Chronic kidney disease, stage 3a
CPT/HCPCS: 36415; 85610; 85730

== ENCOUNTER 2024-06-15 00:20 | Day surgery (SDC) | payer MEDICARE, OTHER, SELFPAY ==
--- NOTE | 2024-06-12 14:27 | PC.NURSE ---
Report to the Outpatient Waiting Room, entrance under the green pavilion located off [facility], at time 1215_PM on date _06/15/24 . Planned Procedure Time: _2:15__PM .? Time changes happen often and if your time is changed the preop area will call you the afternoon before. - You and your visitor will be asked to self-screen and do not enter if you have any COVID symptoms. Please call surgeon if you need to reschedule. - A mask is optional within the hospital at this time. Patients may have clear liquids (water, carbonated beverages, clear teas, apple juice) until 3 hours prior to surgery( 11:15 AM) with a maximum of 20 ounces. - No food from midnight until time of surgery and no smoking - Infants may have breast milk until 4 hours before surgery, formula 6 hours prior to surgery. - Children will be allowed to drink immediately following surgery.? If applicable, please bring a bottle or sippy cup to assist with drinking. Juice, water, soda, and popsicles are readily available.? For infants on formula, please bring formula the day of surgery.? Pacifiers are allowed. Take only the following medications with a SIP of water on the morning of surgery: _ALBUTEROL IF NEEDED,AMIODARONE,GABAPENTIN STIOLTO INHALER DO NOT STOP ANY OF YOUR OTHER PRESCRIPTION MEDICATIONS PRIOR TO SURGERY EXCEPT THE FOLLOWING Medications to discontinue per physician _HOLD ELIQUIS PER DR PARIKH. HOLD ALL VITAMINS AND SUPPLEMENTS 3 DAYS PRE OP LAST DOSE 06/11/24 Please no make-up, nail mozambican, hairspray, perfume, deodorant, or body powder the day of surgery.? No jewelry (including any body piercings) or valuables the day of surgery, leave them at home.? Please take a shower or bath the night before, or the morning of, surgery with an antibacterial soap.? Wear comfortable, loose fitting clothing.? Children are encouraged to wear pajamas. - Jewelry must be removed prior to entering the operating room.? Rings and piercings that are not removed may be cut off. - The hospital will not accept responsibility for valuables.? - Please leave all valuables, including medications, at home the day of surgery. If you are going home after surgery, a licensed tow truck driver must drive you home.? - NO public transportation without another adult if you receive anesthesia. - We recommend that an adult stay with you for 24 hours following discharge. - We also recommend that you do not drive, make important decision, drink alcoholic beverages, or take any drugs that were not prescribed by your health care provider for at least 24 hours after your discharge time. For Pediatric surgeries, we recommend two adults accompany the child home. Follow any additional instructions given to you from your surgeon. Telephone instructions given to __PATIENT AND DAUGHTER STACEY and asked if any additional questions and then verbalized understanding. Patient advised to call surgeon office or pre surgery nurse liaison [phone] if any additional questions.
[2024-06-12 14:37] VITALS: BMI 39.8
[2024-06-15] VITALS (15 sets, daily range): BP systolic 128–206; BP diastolic 65–97; PULSE 48–79; RESP 10–20; TEMP 36.2–36.5; O2SAT 93–100; BMI 39.8
--- NOTE | 2024-06-15 06:29 | WPDHPUPDATE1 ---
History and Physical Update Update Date/Time: 06/15/24 06:29 History and Physical has been reviewed, including an updated exam of the patient. There are NO changes in the patient's condition. Risks, benefits, and alternatives have been discussed and questions answered. Patient agrees to proceed with procedure.
[2024-06-15 13:38] LABS: Glucose Point of Care 91 mg/dl (65-105)
--- NOTE | 2024-06-15 14:13 | WPDANESEPPF ---
Anes - Initial Pre Proc Eval Procedure: Operation Date: 06/15/24 14:15 Proposed Procedures p Trans Urethral Resection Prostate - Shar Webb MD Date/Time: 06/15/24 14:13 Surgeon: Shar Webb MD Pre Op Diagnosis: BPH Patient Data Age: 79 Gender: M Height: 1.85 m Weight: 136.99 kg Allergies Allergy/AdvReac Type Severity Reaction Status Date / Time morphine Allergy Severe Confusion/Severe Verified 06/13/24 11:25 agitation/AGRESSIVE Home Medications Medication Instructions Recorded Confirmed Type ascorbic acid (vitamin C) 1,000 mg 1,000 mg PO DAILY 07/21/21 06/13/24 History tablet furosemide 20 mg tablet (Lasix) 20 mg PO PRN PRN Edema 07/21/21 06/13/24 History multivitamin 1 tablet PO DAILY 07/21/21 06/13/24 History apixaban 5 mg tablet (Eliquis) 5 mg PO Q12HR a-fib #60 tabs 07/30/23 06/13/24 Rx albuterol sulfate 2.5 mg/3 mL 2.5 mg (3 mL) inhalation Q4-6H PRN 08/24/23 06/13/24 Rx (0.083 %) solution for nebulization shortness of breath or wheezing #90 mL tamsulosin 0.4 mg capsule 0.4 mg PO HS 09/15/23 06/13/24 History albuterol sulfate 90 mcg/actuation 1 - 2 inh inhalation Q4-6H PRN 12/29/23 06/13/24 History aerosol inhaler sob/wheezing fenofibrate 54 mg tablet 54 mg PO DAILY 12/29/23 06/13/24 History pantoprazole 40 mg tablet,delayed 40 mg PO QAM #90 tabs 01/17/24 06/13/24 Rx release (Protonix) gabapentin 100 mg capsule 100 mg PO BID #180 caps 01/21/24 06/13/24 Rx finasteride 5 mg tablet 5 mg PO DAILY 03/15/24 06/13/24 History tiotropium 2.5 mcg-olodaterol 2.5 2 puff inhalation DAILY #3 ea 03/15/24 06/13/24 Rx mcg/actuation mist for inhalation (Stiolto Respimat) potassium chloride 10 mEq 10 meq PO DAILY #90 tabs 03/27/24 06/13/24 Rx tablet,extended release codeine 10 mg-guaifenesin 100 mg/5 5 ml PO Q6H PRN cough #120 mL 06/08/24 06/13/24 Rx mL oral liquid docusate sodium 100 mg capsule 100 mg PO .prn 06/08/24 06/13/24 History (Colace) amiodarone 200 mg tablet 100 mg PO DAILY 06/12/24 06/13/24 History cephalexin 500 mg capsule 500 mg PO DAILY 06/12/24 06/13/24 History cholecalciferol (vitamin D3) 125 125 mcg PO DAILY 06/12/24 06/13/24 History mcg (5,000 unit) tablet cyclosporine 0.05 % eye drops in a 1 drp EACH EYE BID 06/12/24 06/13/24 History dropperette glucosamine sulf dipot 2 cap PO DAILY 06/12/24 06/13/24 History chlr,msm,chond 550 mg-C 30 mg-fausto 1 mg capsule (Glucosamine Chondroitin) melatonin 10 mg capsule 10 mg PO HS PRN Insomnia 06/12/24 06/13/24 History omega-3 fatty acids 1,000 mg PO DAILY 06/12/24 06/13/24 History turmeric 400 mg capsule 400 mg PO DAILY 06/12/24 06/13/24 History vit C 250 mg-vit E 90 mg-zinc 40 2 tablet PO DAILY 06/12/24 06/13/24 History mg-copper 1 [id number] capsule (PreserVision AREDS-2) zinc 50 mg capsule 50 mg PO DAILY 06/12/24 06/13/24 History Laboratory Tests 06/15/24 13:37 POC Capillary Glucose 91 mg/dl (65-105) Patient hx anesthesia problems: none Family hx anesthesia problems: none Results Review: All pre-operative results and documents have been reviewed as part of the pre-operative evaluation. [facility] Past Medical History Medical History Benign prostatic hyperplasia Chronic kidney disease Chronic obstructive pulmonary disease CKD (chronic kidney disease) stage 3, GFR 30-59 ml/min Constipation COPD (chronic obstructive pulmonary disease) Gross hematuria Hearing loss History of tobacco abuse Impaired fasting glucose Obesity Obstructive sleep apnea on CPAP Oropharyngeal dysphagia MELANIE on CPAP Right leg DVT Surgical History Surgical History (Updated 06/13/24 @ 12:12 by Laura Clark, MEDSTUDENT) H/O left nephrectomy History of appendectomy History of bilateral hip arthroplasty History of left nephrectomy History of partial colectomy Hx of colectomy Hx of transurethral resection of prostate Sacral
[2024-06-15] MEDS: ceFAZolin 3 GM/D5W 100 ML 100 ML IVPB (14:55)
[2024-06-15] MEDS: LIDOCAINE HCL 2% GEL UROJET 10 ML PKG MUCOUS MEM (15:07)
--- NOTE | 2024-06-15 15:52 | W.PM.PROC2 ---
Procedure Note - Detailed Date of Procedure 06/15/24 Pre-op Diagnosis BPH Post-op Diagnosis Same Procedure Performed TURP Surgeon Shar Webb MD Anesthesia General Description of Procedure The patient was brought to the operative suite where he is prepped and draped in routine sterile fashion while in the dorsal lithotomy position after the uneventful induction of a [general LMA/spinal] anesthetic. A 24F, extra long resectoscope sheath was placed into his bladder. He had no urethral strictures. The patient had trilobar hyperplasia with a small median lobe. The bladder itself was endoscopically normal, showing no mucosal hyperemia, intravesical neoplasm or foreign bodies. There was a single, orthotopic ureteral orifice bilaterally. These orifices were identified and preserved throughout the remainder of the procedure. Attention was first turned to resection of the median lobe. This resection was undertaken from the bladder neck to the verumontanum and carried out until the transverse fibers of the bladder neck were identified. The left lateral lobe was then resected starting at the 6 o'clock position, working counter clockwise to the 12 o'clock position. Again, resection was carried out from the bladder neck to the verumontanum until the capsular fibers of the prostate were identified. The right lateral lobe was resected in a similar fashion starting at the 6 o'clock position working clockwise to the 12 o'clock position and carried out until the capsular fibers of the prostate were identified. Apical tissue was then circumferentially resected. All chips were evacuated from the bladder using an [employer] evacuator. Hemostasis was obtained with electric cautery. The ureteral orifices were again inspected and found to be without injury. Estimated blood loss throughout this procedure was 75cc. The patient was taken to recovery room having tolerated this well. Drains Yes Packing No Pathology Yes Complications No immediate complications Condition Stable Disposition PACU
[2024-06-15] MEDS: LACTATED RINGERS 1,000 ML 30 ML IV CONT (15:57)
[2024-06-15] MEDS: hydrALAZINE HCL 20 MG/ML VIAL 5 MG IV PUSH (16:07)
[2024-06-15] MEDS: fentaNYL CITRATE INJ (*CRX) 100 MCG/2 ML VIAL 25 MCG IV PUSH ×4 (16:26→16:46)
[2024-06-15 16:38] LABS: Glucose Point of Care 97 mg/dl (65-105)
--- NOTE | 2024-06-15 17:44 | ADMGEN ---
This patient, Jason Daigle, was admitted to Medical Room 248-. Patient/family oriented to hospital policies and general routines including ID bracelet, bed and alarms, visiting hours, pain management, procedures, bathroom and other care routines, personal items, smoking policy, room service/diet, and visiting hours. Information on how to activate the Rapid Response Team has been discussed. Patient/Family are encouraged to report perceived risks to care and to ask questions if they do not understand what they are told or what they should do.
[2024-06-15] MEDS: GABAPENTIN 100 MG CAPSULE PO (17:54)
[2024-06-15] MEDS: cycloSPORINE 0.4 ML OPHTH SOLUTION 1 DROP EACH EYE (17:54)
[2024-06-15] MEDS: DOCUSATE SODIUM 100 MG CAPSULE PO (17:54)
[2024-06-15] MEDS: ceFAZolin 1 GM/NS 50 ML 1 GM/50 ML BAG IVPB (20:17)
[2024-06-15] MEDS: TAMSULOSIN HCL 0.4 MG CAPSULE PO (20:18)
[2024-06-15] MEDS: BENZOCAINE/MENTHOL (*BKC) 18 EA LOZENGE 1 LOZENGE PO (20:19)
[2024-06-15] MEDS: MELATONIN 5 MG TABLET 10 MG PO (22:17)
[2024-06-16 04:15] VITALS: BP 130/65; PULSE 50; RESP 20; TEMP 36.7; O2SAT 98
[2024-06-16] MEDS: ceFAZolin 1 GM/NS 50 ML 1 GM/50 ML BAG IVPB (05:04)
[2024-06-16 05:13] LABS: Hematocrit 42.4 % (42.0-52.0); Hemoglobin 14.3 g/dL (14.0-18.0)
[2024-06-16 05:24] LABS: Anion Gap 6 mmol/L (4-12); Blood Urea Nitrogen 22 mg/dL (9-20); Carbon Dioxide 29 mmol/L (22-30); Chloride 99 mmol/L (98-107); Estimated CRCL calculation 63 ml/min; Estimated Glomerular Filt Rate 58; Glucose 111 mg/dL (65-110); Potassium 3.8 mmol/L (3.4-5.0); Sodium 134 mmol/L (137-145)
--- NOTE | 2024-06-16 06:55 | WPDUROPN2 ---
Subjective Subjective Date/Time Seen: 06/16/24 06:55 Interval history: Comfortable, tolerating diet / no complaints Review of Systems Cardiovascular: Cardiovascular: Denies chest pain, Denies lightheadedness, Denies palpitations and Denies dyspnea Respiratory: Respiratory: Denies dyspnea Gastrointestinal: Gastrointestinal: Denies diarrhea, Denies nausea and Denies vomiting Genitourinary: Genitourinary: Denies hematuria and Denies dysuria Endocrine: Endocrine: Denies palpitations Exam Const: General: no acute distress Resp: Effort & Inspection: normal respiratory effort GI: Inspection: non-distended GI Palp: No abdominal tenderness and No Guarding due to palpation present (GI) Auscultation: normal bowel sounds Objective Data Vital Signs Vital Signs: Vital Signs - 24 hr 06/15/24 13:00 06/15/24 15:57 06/15/24 16:14 Temperature 97.2 F L 97.2 F L Pulse Rate 48 L 79 63 Respiratory Rate 18 16 16 Blood Pressure 154/94 H 206/94 H 199/95 H Pulse Oximetry 97 100 100 Oxygen Delivery Room Air Simple Face Mask Simple Face Mask Oxygen Flow Rate 6 6 06/15/24 16:27 06/15/24 16:29 06/15/24 16:42 Temperature Pulse Rate 65 65 Respiratory Rate 16 14 Blood Pressure 200/97 H 176/82 H Pulse Oximetry 100 93 93 Oxygen Delivery Room Air Room Air Room Air Oxygen Flow Rate 06/15/24 16:56 06/15/24 17:02 06/15/24 17:13 Temperature Pulse Rate 67 63 60 Respiratory Rate 10 L 13 12 Blood Pressure 172/77 H 161/82 H 174/79 H Pulse Oximetry 93 93 93 Oxygen Delivery Room Air Room Air Room Air Oxygen Flow Rate 06/15/24 17:13 06/15/24 17:28 06/15/24 17:58 Temperature 97.3 F L 97.3 F L 97.3 F L Pulse Rate 60 61 63 Respiratory Rate 16 16 16 Blood Pressure 156/69 H 165/66 H 150/67 H Pulse Oximetry 95 93 97 Oxygen Delivery Oxygen Flow Rate 06/15/24 18:55 06/15/24 18:58 06/15/24 20:13 Temperature 97.7 F 97.7 F Pulse Rate 58 L 58 L Respiratory Rate 20 20 Blood Pressure 128/91 H 128/91 H Pulse Oximetry 94 94 Oxygen Delivery Room Air Oxygen Flow Rate 06/15/24 22:29 06/15/24 20:12 06/15/24 23:57 Temperature 97.7 F Pulse Rate 56 L 50 L Respiratory Rate 20 20 Blood Pressure 134/65 Pulse Oximetry 97 98 Oxygen Delivery CPAP Room Air Oxygen Flow Rate 06/16/24 04:15 Temperature 98.1 F Pulse Rate 50 L Respiratory Rate 20 Blood Pressure 130/65 Pulse Oximetry 98 Oxygen Delivery Oxygen Flow Rate Intake/Output Intake/Output: Intake & Output 06/13/24 06/14/24 06/15/24 06/16/24 23:59 23:59 23:59 23:59 Intake Total 450 340 Output Total 325 2450 Balance 125 -2110 Meds/Results Medications: Active Medications Generic Name Dose Route Start Last Admin Trade Name Freq PRN Reason Stop Dose Admin Acetaminophen 650 mg 06/15/24 19:37 Acetaminophen 325 Mg Tablet PO Q4H PRN Pain Rated 1-3 Albuterol 2.5 mg 06/15/24 17:13 Albuterol Sulfate Neb 2.5 Mg/3 Ml Inh INHALATION Q4-6H PRN shortness of breath or wheezing Albuterol 1 - 2 puff 06/15/24 17:13 Albuterol Sulfate (*Sp) Aerosol 1 Puff INHALATION Q4-6H PRN Shortness Of Breath Or Wheezing Amiodarone HCl 100 mg 06/16/24 09:00 Amiodarone Hcl 100 Mg Tablet PO DAILY [facility] Benzocaine 1 lozenge 06/15/24 19:37 06/15/24 20:19 Benzocaine/Menthol (*Bkc) 18 Ea Lozenge PO 1 lozenge PRN PRN Administration Sore Throat Cephalexin HCl 500 mg 06/16/24 09:00 Cephalexin 500 Mg Capsule PO QID TEJAS Cyclosporine 1 drop 06/15/24 17:13 06/15/24 17:54 Cyclosporine 0.4 Ml Ophth Solution EACH EYE 1 drop BID TEJAS Administration Docusate Sodium 100 mg 06/15/24 17:13 Docusate Sodium 100 Mg Capsule PO .prn TEJAS Docusate Sodium 100 mg 06/15/24 17:13 06/15/24 17:54 Docusate Sodium 100 Mg Capsule PO 100 mg BID TEJAS Administration Finasteride 5 mg 06/16/24 09:00 Finasteride 5 Mg Tablet PO DAILY [facility] F
--- NOTE | 2024-06-16 06:57 | WPDUROPN2 ---
Progress Note: A&P Assessment and Plan (1) Benign prostatic hyperplasia with lower urinary tract symptoms: Code(s): N40.1 - Benign prostatic hyperplasia with lower urinary tract symptoms Status: Acute Assessment and Plan: Doing well POD #1 TURP. Urine clear on slow CBI. Stop CBI now / voiding trial later this morning if urine remains clear . Subjective Subjective Date/Time Seen: 06/16/24 06:57 Interval history: Comfortable, tolerating diet / no complaints Review of Systems Cardiovascular: Cardiovascular: Denies chest pain, Denies lightheadedness, Denies palpitations and Denies dyspnea Respiratory: Respiratory: Denies dyspnea Gastrointestinal: Gastrointestinal: Denies diarrhea, Denies nausea and Denies vomiting Genitourinary: Genitourinary: Denies hematuria and Denies dysuria Endocrine: Endocrine: Denies palpitations Exam Const: General: no acute distress Resp: Effort & Inspection: normal respiratory effort GI: Inspection: non-distended GI Palp: No abdominal tenderness and No Guarding due to palpation present (GI) Auscultation: normal bowel sounds Urinary Catheter: Urinary Catheter: patent and draining and urine clear Objective Data Vital Signs Vital Signs: Vital Signs - 24 hr 06/15/24 13:00 06/15/24 15:57 06/15/24 16:14 Temperature 97.2 F L 97.2 F L Pulse Rate 48 L 79 63 Respiratory Rate 18 16 16 Blood Pressure 154/94 H 206/94 H 199/95 H Pulse Oximetry 97 100 100 Oxygen Delivery Room Air Simple Face Mask Simple Face Mask Oxygen Flow Rate 6 6 06/15/24 16:27 06/15/24 16:29 06/15/24 16:42 Temperature Pulse Rate 65 65 Respiratory Rate 16 14 Blood Pressure 200/97 H 176/82 H Pulse Oximetry 100 93 93 Oxygen Delivery Room Air Room Air Room Air Oxygen Flow Rate 06/15/24 16:56 06/15/24 17:02 06/15/24 17:13 Temperature Pulse Rate 67 63 60 Respiratory Rate 10 L 13 12 Blood Pressure 172/77 H 161/82 H 174/79 H Pulse Oximetry 93 93 93 Oxygen Delivery Room Air Room Air Room Air Oxygen Flow Rate 06/15/24 17:13 06/15/24 17:28 06/15/24 17:58 Temperature 97.3 F L 97.3 F L 97.3 F L Pulse Rate 60 61 63 Respiratory Rate 16 16 16 Blood Pressure 156/69 H 165/66 H 150/67 H Pulse Oximetry 95 93 97 Oxygen Delivery Oxygen Flow Rate 06/15/24 18:55 06/15/24 18:58 06/15/24 20:13 Temperature 97.7 F 97.7 F Pulse Rate 58 L 58 L Respiratory Rate 20 20 Blood Pressure 128/91 H 128/91 H Pulse Oximetry 94 94 Oxygen Delivery Room Air Oxygen Flow Rate 06/15/24 22:29 06/15/24 20:12 06/15/24 23:57 Temperature 97.7 F Pulse Rate 56 L 50 L Respiratory Rate 20 20 Blood Pressure 134/65 Pulse Oximetry 97 98 Oxygen Delivery CPAP Room Air Oxygen Flow Rate 06/16/24 04:15 Temperature 98.1 F Pulse Rate 50 L Respiratory Rate 20 Blood Pressure 130/65 Pulse Oximetry 98 Oxygen Delivery Oxygen Flow Rate Intake/Output Intake/Output: Intake & Output 06/13/24 06/14/24 06/15/24 06/16/24 23:59 23:59 23:59 23:59 Intake Total 450 340 Output Total 325 2450 Balance 125 -2110 Meds/Results Medications: Active Medications Generic Name Dose Route Start Last Admin Trade Name Freq PRN Reason Stop Dose Admin Acetaminophen 650 mg 06/15/24 19:37 Acetaminophen 325 Mg Tablet PO Q4H PRN Pain Rated 1-3 Albuterol 2.5 mg 06/15/24 17:13 Albuterol Sulfate Neb 2.5 Mg/3 Ml Inh INHALATION Q4-6H PRN shortness of breath or wheezing Albuterol 1 - 2 puff 06/15/24 17:13 Albuterol Sulfate (*Sp) Aerosol 1 Puff INHALATION Q4-6H PRN Shortness Of Breath Or Wheezing Amiodarone HCl 100 mg 06/16/24 09:00 Amiodarone Hcl 100 Mg Tablet PO DAILY TEJAS Benzocaine 1 lozenge 06/15/24 19:37 06/15/24 20:19 Benzocaine/Menthol (*Bkc) 18 Ea Lozenge PO 1 lozenge PRN PRN Administration Sore Throat Cephalexin HCl 500 mg 06/16/24 09:00 Cephalexin 500 Mg Capsule PO QID TEJAS
[2024-06-16 08:46] VITALS: BP 151/57; PULSE 85; RESP 16; TEMP 36.3; O2SAT 97
[2024-06-16] MEDS: POTASSIUM CHLORIDE 10 MEQ ER TABLET PO (08:49)
[2024-06-16] MEDS: OPTI-GEN TAB 2 TABLET PO (08:49)
[2024-06-16] MEDS: PANTOPRAZOLE 40 MG TABLET PO (08:49)
[2024-06-16 08:50] VITALS: O2SAT 96
[2024-06-16] MEDS: GABAPENTIN 100 MG CAPSULE PO (08:50)
[2024-06-16] MEDS: CEPHALEXIN 500 MG CAPSULE PO ×2 (08:50→13:19)
[2024-06-16] MEDS: FINASTERIDE 5 MG TABLET PO (08:50)
[2024-06-16] MEDS: DOCUSATE SODIUM 100 MG CAPSULE PO (08:50)
[2024-06-16 08:53] VITALS: PULSE 46
[2024-06-16] MEDS: cycloSPORINE 0.4 ML OPHTH SOLUTION 1 DROP EACH EYE (09:01)
[2024-06-16] MEDS: UMECLIDINIUM/VILANTEROL 62.5-25 MCG ELLIPTA 1 PUFF INHALATION (09:27)
--- NOTE | 2024-06-16 11:37 | WPDANESPN ---
Anes - Prog Note Post-Op Date/Time: 06/16/24 11:37 Cardiovascular status: normal Respiratory status: normal Airway patency: baseline Mental status: baseline Post-Op hydration status: normal Vital Signs: Last Vital Signs Temp 36.3 C L 06/16/24 08:46 Pulse 46 L 06/16/24 08:53 Resp 16 06/16/24 08:46 BP 151/57 H 06/16/24 08:46 Pulse Ox 96 06/16/24 08:50 O2 Del Method Room Air 06/16/24 08:50 O2 Flow Rate 6 06/15/24 16:14 Pain Score (VAS): 0 I/O: Intake & Output 06/15/24 06/16/24 06/16/24 23:59 07:59 15:59 Intake Total 350 340 120 Output Total 325 2450 1000 Balance 79 -5236 -574 Laboratory Tests 06/16/24 05:01 06/16/24 05:01 06/15/24 06/15/24 06/16/24 13:37 16:35 05:01 Hgb 14.3 Hct 42.4 Sodium 134 L Potassium 3.8 Chloride 99 Carbon Dioxide 29 Anion Gap 6 BUN 22 H Creatinine 1.20 Estim Creat Clear Calc 63 Estimated GFR 58 L Glucose 111 H POC Capillary Glucose 91 97 Calcium 9.0 Post-procedural complaints: none Patient Feedback: Patient satisfied with anesthetic care.
== END 2024-06-16 13:30 | disposition home or self-care (01) ==
LOC: ANHSURGERY 12:18 → ANH2MED 17:39
PROVIDERS: PCP Family Medicine; Visit Provider Urology
PROC: 0VT08ZZ Resection of Prostate, Via Natural or Artificial Opening Endoscopic (ICD-10-PCS; CPT 52601; principal; 2024-06-15 14:15)
DX: C61 Malignant neoplasm of prostate (principal); N34.2 Other urethritis; N13.8 Other obstructive and reflux uropathy; Z79.899 Other long term (current) drug therapy; Z87.891 Personal history of nicotine dependence; E66.9 Obesity, unspecified; Z68.39 Body mass index [BMI] 39.0-39.9, adult
CPT/HCPCS: 52601; 36415; 80048; 82948; 85014; 85018; 88305; 88342; 94640; A9270; J0330; J0360; J0461; J0690; J1100; J1596; J2405; J2704; J3010; J7120

== ENCOUNTER 2024-07-14 15:51 | Inpatient (IN) | payer MEDICARE, OTHER, SELFPAY ==
--- NOTE | 2024-07-12 11:02 | PC.NURSE ---
Report to the Outpatient Waiting Room, entrance under the green pavilion located off [facility], at time __1315 on date __07/13/24 . Planned Procedure Time: _1515 .? Time changes happen often and if your time is changed the preop area will call you the afternoon before. - You and your visitor will be asked to self-screen and do not enter if you have any COVID symptoms. Please call surgeon if you need to reschedule. - A mask is optional within the hospital at this time. Patients may have clear liquids (water, carbonated beverages, clear teas, apple juice) until 3 hours prior to surgery with a maximum of 20 ounces. - No food from midnight until time of surgery and no smoking - Infants may have breast milk until 4 hours before surgery, formula 6 hours prior to surgery. - Children will be allowed to drink immediately following surgery.? If applicable, please bring a bottle or sippy cup to assist with drinking. Juice, water, soda, and popsicles are readily available.? For infants on formula, please bring formula the day of surgery.? Pacifiers are allowed. Take only the following medications with a SIP of water on the morning of surgery: ____ALBUTEROL NEBULIZER,AMIODARONE,GABAPENTIN , EYE DROPS,STIOLTO INHALER DO NOT STOP ANY OF YOUR OTHER PRESCRIPTION MEDICATIONS PRIOR TO SURGERY EXCEPT THE FOLLOWING Medications to discontinue per physician HOLD ALL VITAMINS/SUPPLEMENTS (TODAY) ELIQUIS PER DR PARIKH Please no make-up, nail pakistani, hairspray, perfume, deodorant, or body powder the day of surgery.? No jewelry (including any body piercings) or valuables the day of surgery, leave them at home.? Please take a shower or bath the night before, or the morning of, surgery with an antibacterial soap.? Wear comfortable, loose fitting clothing.? Children are encouraged to wear pajamas. - Jewelry must be removed prior to entering the operating room.? Rings and piercings that are not removed may be cut off. - The hospital will not accept responsibility for valuables.? - Please leave all valuables, including medications, at home the day of surgery. If you are going home after surgery, a licensed local flatbed driver must drive you home.? - NO public transportation without another adult if you receive anesthesia. - We recommend that an adult stay with you for 24 hours following discharge. - We also recommend that you do not drive, make important decision, drink alcoholic beverages, or take any drugs that were not prescribed by your health care provider for at least 24 hours after your discharge time. For Pediatric surgeries, we recommend two adults accompany the child home. Follow any additional instructions given to you from your surgeon. Telephone instructions given to _PT AND WIFEJACKIE and asked if any additional questions and then verbalized understanding. Patient advised to call surgeon office or pre surgery nurse liaison [phone] if any additional questions.
[2024-07-12 11:06] VITALS: BMI 39.8
[2024-07-13] VITALS (12 sets, daily range): BP systolic 114–171; BP diastolic 40–78; PULSE 48–105; RESP 12–20; TEMP 35.6–36.5; O2SAT 96–100
--- NOTE | 2024-07-13 05:56 | WPDHPUPDATE1 ---
History and Physical Update Update Date/Time: 07/13/24 05:56 History and Physical has been reviewed, including an updated exam of the patient. There are NO changes in the patient's condition. Risks, benefits, and alternatives have been discussed and questions answered. Patient agrees to proceed with procedure.
[2024-07-13] MEDS: LACTATED RINGERS 1,000 ML 30 ML IV CONT (14:00)
--- NOTE | 2024-07-13 14:42 | P.PNAN_ITS ---
Anes - Initial Pre Proc Eval Procedure: Operation Date: 07/13/24 15:15 Proposed Procedures p Cystoscopy, Evacuation Bladder Clots - Shar Webb MD Date/Time: 07/13/24 14:42 Surgeon: Shar Webb MD Pre Op Diagnosis: bladder clots Patient Data Age: 79 Gender: M Height: 1.85 m Weight: 135.8 kg Last Vital Signs Temp 97 F L 07/13/24 14:00 Pulse 53 L 07/13/24 14:00 Resp 14 07/13/24 14:00 BP 138/69 07/13/24 14:00 Pulse Ox 100 07/13/24 14:00 O2 Del Method Room Air 07/13/24 14:00 Allergies Allergy/AdvReac Type Severity Reaction Status Date / Time morphine Allergy Severe Confusion/Severe Verified 07/13/24 14:23 agitation/AGRESSIVE Home Medications Medication Instructions Recorded Confirmed Type ascorbic acid (vitamin C) 1,000 mg 1,000 mg PO DAILY 07/21/21 07/12/24 History tablet furosemide 20 mg tablet (Lasix) 20 mg PO PRN PRN Edema 07/21/21 07/12/24 History multivitamin 1 tablet PO DAILY 07/21/21 07/12/24 History apixaban 5 mg tablet (Eliquis) 5 mg PO Q12HR a-fib #60 tabs 07/30/23 07/12/24 Rx albuterol sulfate 2.5 mg/3 mL 2.5 mg (3 mL) inhalation Q4-6H PRN 08/24/23 07/12/24 Rx (0.083 %) solution for nebulization shortness of breath or wheezing #90 mL albuterol sulfate 90 mcg/actuation 1 - 2 inh inhalation Q4-6H PRN 12/29/23 07/12/24 History aerosol inhaler sob/wheezing pantoprazole 40 mg tablet,delayed 40 mg PO QAM #90 tabs 01/17/24 07/12/24 Rx release (Protonix) gabapentin 100 mg capsule 100 mg PO BID #180 caps 01/21/24 07/12/24 Rx tiotropium 2.5 mcg-olodaterol 2.5 2 puff inhalation DAILY #3 ea 03/15/24 07/12/24 Rx mcg/actuation mist for inhalation (Stiolto Respimat) potassium chloride 10 mEq 10 meq PO DAILY #90 tabs 03/27/24 07/12/24 Rx tablet,extended release docusate sodium 100 mg capsule 100 mg PO .prn 06/08/24 07/12/24 History (Colace) amiodarone 200 mg tablet 100 mg PO DAILY 06/12/24 07/12/24 History cholecalciferol (vitamin D3) 125 125 mcg PO DAILY 06/12/24 07/12/24 History mcg (5,000 unit) tablet cyclosporine 0.05 % eye drops in a 1 drp EACH EYE BID 06/12/24 07/12/24 History dropperette glucosamine sulf dipot 2 cap PO DAILY 06/12/24 07/12/24 History chlr,msm,chond 550 mg-C 30 mg-fausto 1 mg capsule (Glucosamine Chondroitin) melatonin 10 mg capsule 10 mg PO HS PRN Insomnia 06/12/24 07/12/24 History omega-3 fatty acids 1,000 mg PO DAILY 06/12/24 07/12/24 History turmeric 400 mg capsule 400 mg PO DAILY 06/12/24 07/12/24 History vit C 250 mg-vit E 90 mg-zinc 40 2 tablet PO DAILY 06/12/24 07/12/24 History mg-copper 1 fl-mntxur-ivpzul capsule (PreserVision AREDS-2) zinc 50 mg capsule 50 mg PO DAILY 06/12/24 07/12/24 History hydrocodone 5 mg-acetaminophen 325 1 - 2 tablet PO Q6H PRN pain #20 06/16/24 07/12/24 Rx mg tablet tabs fenofibrate 54 mg tablet 54 mg PO DAILY #90 tabs 06/30/24 07/12/24 Rx levofloxacin 500 mg tablet 500 mg PO DAILY 07/12/24 07/12/24 History Patient hx anesthesia problems: none Family hx anesthesia problems: none Results Review: All pre-operative results and documents have been reviewed as part of the pre- operative evaluation. [facility] Past Medical History Medical History Benign prostatic hyperplasia Chronic kidney disease Chronic obstructive pulmonary disease CKD (chronic kidney disease) stage 3, GFR 30-59 ml/min Constipation COPD (chronic obstructive pulmonary disease) Gross hematuria Hearing loss History of tobacco abuse Impaired fasting glucose Obesity Obstructive sleep apnea on CPAP Oropharyngeal dysphagia MELANIE on CPAP Right leg DVT Surgical History Surgical History H/O left nephrectomy History of appendectomy History of bilateral hip arthroplasty History of left nephrectomy History of partial colectomy Hx of colectomy Hx of transurethral resection of prostate Sacral nerve stimulator present Family History Family History Sibling Malignant neoplasm of prostate Family history of lung cancer Family history of pancreatic cancer Hypertension Father Chronic obstructive pulmonary disease Social History Social History Social History: Surrogate medical decision maker: Roxana Quintanilla, daughter. Code status: Full code. Smoking packs per day: 2 Smoking cigarettes per day: 40.0 Years smoked: 40 Smoking pack-years: 80.00 Smoking status: Former smoker Tobacco type: cigarettes Second hand tobacco smoke exposure: Yes Smoking end date: 08/30/04 Additional smoking assessment comments: states Chantix helped him quit Alcohol intake: current Drinks per week: 4 Alcohol use details: 5-6 BEERS/WEEK Substance use: never Substance use type: does not use Do You Feel Safe in your Home?: Yes Lack of Transportation: No Lack of Food: Never True Current Housing: I Have Housing Concerned About Future Housing: No Difficulty Paying Gas/Electric Bills: No Difficulty Paying for Meds: No Currently Unemployed: No Education: Master's Degree or Higher Difficulty w/ Childcare or Family Care: No Living arrangements: with family Additional living arrangements comments: DAUGHTER AND MIN Occupation/Education: retired Additional occupation/education comments: 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 Gender identity (if verbalized by the patient): Male Sexual Orientation (if Verbalized by the Patient): Straight or Heterosexual Spiritual care concerns: No Anes - Eval Final PreProcedure Day of Procedure 07/13/24 14:42 Patient weight: morbidly obese Heart: regular rate and rhythm Lungs: clear to auscultation Airway: Mallampati scale and special considerations (Edentulous. ) Neurological: alert and oriented Last oral intake: >/= 8 hours ASA classification: IV Emergent: no Anesthetic plan: proceed Anesthesia type and monitoring: general LMA and standard monitoring Results Review: All pre-operative results and documents have been reviewed as part of the pre- operative evaluation. HTN, hyperlipidemia, severe MELANIE on CPAP, PFTs w severe obstructive disease, hx of renal ca and colon ca. Pt can walk short distances without cp or sob, limited by LE neuropathy. Informed Consent: The patient's anesthetic plan and its attendant risks and benefits were discussed with the patient/family/POA. Questions were solicited and answers prov ided to the satisfaction of the patient/family/POA.
[2024-07-13] MEDS: ceFAZolin 3 GM/D5W 100 ML 100 ML IVPB (14:49)
[2024-07-13] MEDS: LIDOCAINE HCL 2% GEL UROJET 10 ML PKG MUCOUS MEM (15:01)
--- NOTE | 2024-07-13 15:30 | SUR.OPER ---
Patient did not have SCD's
--- NOTE | 2024-07-13 15:54 | SUR.PHASEI ---
1550 - dr. lewis at bedside talking with patient
--- NOTE | 2024-07-13 15:55 | P.OP_ITS ---
Procedure Note - Detailed Date of Procedure 07/13/24 Pre-op Diagnosis Hematuria, clot retention Post-op Diagnosis Same Procedure Performed Cystoscopy clot evacuation and cauterization of prostate bed Surgeon Shar Webb MD Anesthesia General Description of Procedure patient is brought to the operative suite was prepped draped in routine sterile fashion while in dorsal lithotomy position. After the uneventful induction of a general anesthetic a 26 F resectoscope was placed in his bladder. He has a well resected prostatic urethra without evidence of obstruction. He has a very well- organized clot sitting at the bladder neck. I was unable to evacuate this with simple Immanuel suction. Had to resect the actual clot in order to remove the smaller pieces a determination all pieces had been removed. There were couple small oozing areas in the prostate fossa that I cauterized with the rollerball. His bladder was otherwise normal. At the and his urinary flexible perfectly clear. I did place a 22 F hematuria catheter continuous irrigation. Drains Yes Pathology None sent Complications No immediate complications Condition Stable Disposition PACU
[2024-07-13] MEDS: DEXTROSE 5%/LACTATED RINGERS 1,000 ML 125 ML IV CONT (17:39)
[2024-07-13] MEDS: GABAPENTIN 100 MG CAPSULE PO (17:40)
[2024-07-13] MEDS: DOCUSATE SODIUM 100 MG CAPSULE PO (17:40)
--- NOTE | 2024-07-13 17:55 | ADMGEN ---
This patient, Jason Daigle, was admitted to [facility] Surg Room 315-02. Patient/family oriented to hospital policies and general routines including ID bracelet, bed and alarms, visiting hours, pain management, procedures, bathroom and other care routines, personal items, smoking policy, room service/diet, and visiting hours. Information on how to activate the Rapid Response Team has been discussed. Patient/Family are encouraged to report perceived risks to care and to ask questions if they do not understand what they are told or what they should do.
[2024-07-13] MEDS: cycloSPORINE 0.4 ML OPHTH SOLUTION 1 DROP EACH EYE (20:48)
[2024-07-13] MEDS: HYOSCYAMINE SULFATE 0.125 MG TABLET SUBLINGUAL (21:09)
[2024-07-13] MEDS: HYDROcodone/acetaminophen (*CRX) 5-325 MG TABLET 1 TAB PO (22:47)
[2024-07-13] MEDS: ceFAZolin 1 GM/NS 50 ML 1 GM/50 ML BAG IVPB (23:24)
[2024-07-14 02:26] VITALS: BP 140/63; PULSE 53; RESP 20; TEMP 36.6; O2SAT 98
[2024-07-14 05:48] VITALS: BP 117/55; PULSE 55; RESP 20; TEMP 36.6; O2SAT 99
[2024-07-14] MEDS: ceFAZolin 1 GM/NS 50 ML 1 GM/50 ML BAG IVPB (06:02)
--- NOTE | 2024-07-14 06:54 | P.PNUR_ITS ---
Progress Note: A&P Assessment and Plan (1) Benign prostatic hyperplasia with lower urinary tract symptoms: Code(s): N40.1 - Benign prostatic hyperplasia with lower urinary tract symptoms Status: Acute (2) Benign prostatic hyperplasia: Code(s): N40.0 - Benign prostatic hyperplasia without lower urinary tract symptoms Status: Chronic Assessment and Plan: * Stop CBI this morning with plans for voiding trial later if urine remains clear Subjective Subjective Date/Time Seen: 07/14/24 06:54 Interval history: Nurse reports hematuria overnight but perfectly clear morning. Comfortable this morning Review of Systems Review of Systems: All systems reviewed & are unremarkable except as noted in HPI and below Exam Const: General: no acute distress Resp: Effort & Inspection: normal respiratory effort GI: Inspection: non-distended GI Palp: No abdominal tenderness and No Guarding due to palpation present (GI) Auscultation: normal bowel sounds Objective Data Vital Signs Vital Signs: Vital Signs - 24 hr 07/13/24 14:00 07/13/24 15:34 07/13/24 15:45 Temperature 97 F L 97.7 F Pulse Rate 53 L 57 L 54 L Respiratory Rate 14 16 12 Blood Pressure 138/69 132/60 141/60 H Pulse Oximetry 100 99 99 Oxygen Delivery Room Air Simple Face Mask Room Air Oxygen Flow Rate 9 07/13/24 16:00 07/13/24 16:15 07/13/24 16:30 Temperature Pulse Rate 49 L 48 L 50 L Respiratory Rate 14 12 12 Blood Pressure 126/54 L 147/57 H 171/60 H Pulse Oximetry 97 100 99 Oxygen Delivery Room Air Room Air Room Air Oxygen Flow Rate 07/13/24 16:37 07/13/24 16:41 07/13/24 16:56 Temperature 96.6 F L 96.4 F L Pulse Rate 48 L 105 H 52 L Respiratory Rate 14 15 15 Blood Pressure 160/78 H 125/40 L 136/55 L Pulse Oximetry 99 98 98 Oxygen Delivery Room Air Oxygen Flow Rate 07/13/24 17:26 07/13/24 18:26 07/13/24 18:00 Temperature 96.1 F L 96.8 F L Pulse Rate 61 65 Respiratory Rate 15 15 Blood Pressure 134/72 114/60 Pulse Oximetry 98 98 Oxygen Delivery Room Air Oxygen Flow Rate 07/13/24 22:26 07/13/24 20:00 07/14/24 02:26 Temperature 97.5 F L 97.9 F Pulse Rate 60 53 L Respiratory Rate 20 20 Blood Pressure 142/65 H 140/63 Pulse Oximetry 96 98 Oxygen Delivery Room Air Oxygen Flow Rate 07/14/24 05:48 Temperature 97.9 F Pulse Rate 55 L Respiratory Rate 20 Blood Pressure 117/55 L Pulse Oximetry 99 Oxygen Delivery Oxygen Flow Rate Intake/Output Intake/Output: Intake & Output 07/11/24 07/12/24 07/13/24 07/14/24 23:59 23:59 23:59 23:59 Intake Total 6350 450 Output Total 500 Balance 5850 450 Meds/Results Medications: Active Medications Generic Name Dose Route Start Last Admin Trade Name Freq PRN Reason Stop Dose Admin Hydrocodone Bitart/Acetaminophen 1 tab 07/13/24 22:33 07/13/24 22:47 Hydrocodone/Acetaminophen (*Crx) 5-325 Mg Tablet PO 1 tab Q4H PRN Administration Pain Rated 4-6 Albuterol 1 - 2 puff 07/13/24 16:41 Albuterol Sulfate (*Sp) Aerosol 1 Puff INHALATION Q4-6H PRN sob/wheezing Albuterol 2.5 mg 07/13/24 16:41 Albuterol Sulfate Neb 2.5 Mg/3 Ml Inh INHALATION Q4-6H PRN shortness of breath or wheezing Cephalexin HCl 500 mg 07/14/24 13:00 Cephalexin 500 Mg Capsule PO QID TEJAS Cyclosporine 1 drop 07/13/24 21:00 07/13/24 20:48 Cyclosporine 0.4 Ml Ophth Solution EACH EYE 1 drop Q12HR TEJAS Administration Docusate Sodium 100 mg 07/13/24 16:41 Docusate Sodium 100 Mg Capsule PO .prn TEJAS Docusate Sodium 100 mg 07/13/24 17:00 07/13/24 17:40 Docusate Sodium 100 Mg Capsule PO 100 mg BID TEJAS Administration Fentanyl Citrate 25 mcg 07/13/24 15:41 Fentanyl Citrate Inj (*Crx) 100 Mcg/2 Ml Vial IV PUSH Q2M PRN Pain Furosemide 20 mg 07/13/24 16:41 Furosemide 20 Mg Tablet PO PRN PRN Edema Gabapentin 100 mg 07/13/24 17:00 07/13/24 17:40 Gabapentin 100 Mg Capsule PO 100 mg BID TEJAS Administration Hyoscyamine 0.125 mg 07/13/24 16:41 07/13/24 21:09 Hyoscyamine Sulfate 0.125 Mg Tablet SUBLINGUAL 0.125 mg Q6H PRN Administration Bladder Spasm Lactated Ringer's 1,000 mls @ 30 mls/hr 07/13/24 15:00 07/13/24 16:41 Lr - Lactated Ringers Iv IV CONT Infused .Q24H TEJAS Infusion Lactated Ringer's 1,000 mls @ 30 mls/hr 07/13/24 15:45 Lr - Lactated Ringers Iv IV CONT .Q24H TEJAS Lactated Ringer's 1,000 mls @ 30 mls/hr 07/13/24 15:45 Lr - Lactated Ringers Iv IV CONT .Q24H TEJAS Cefazolin Sodium 1 gm in 50 mls @ 100 mls/hr 07/13/24 23:00 07/14/24 06:02 Ancef 1 Gm/Ns 50 Ml IVPB 07/14/24 07:29 100 mls/hr Q8H TEJAS Administration Melatonin 10 mg 07/13/24 16:41 Melatonin 5 Mg Tablet PO HS PRN Insomnia Miscellaneous Information 0 each 07/13/24 00:01 May We Hold Home Colace & Use Post-Op Order? XX 08/12/24 00:00 CLARIFY TEJAS Miscellaneous Information 0 each 07/13/24 00:01 Fenofibrate 54 Mg Is Non-Formulary. We Stock Fenofibrate 48 Mg Or Use Pt Own Supply? XX 08/12/24 00:00 CLARIFY TEJAS Naloxone HCl 0.1 mg 07/13/24 16:41 Naloxone Hcl 0.4 Mg/Ml Vial IV PUSH Q2M PRN Opiate Reversal Non-Formulary Medication 54 mg 07/14/24 09:00 Fenofibrate PO 08/13/24 08:59 DAILY TEJAS Ondansetron HCl 4 mg 07/13/24 15:41 Ondansetron Inj 4 Mg/2 Ml Vial IV PUSH ONCE PRN Nausea Ondansetron HCl 4 mg 07/13/24 16:41 Ondansetron Inj 4 Mg/2 Ml Vial IV PUSH Q12H PRN Nausea And Vomiting Pantoprazole Sodium 40 mg 07/14/24 09:00 Pantoprazole 40 Mg Tablet PO QAM TEJAS Potassium Chloride 10 meq 07/14/24 09:00 Potassium Chloride 10 Meq Er Tablet PO DAILY TEJAS Umeclidinium/Vilanterol 1 puff 07/14/24 09:00 Umeclidinium/Vilanterol 62.5-25 Mcg Ellipta INHALATION DAILY TEJAS
[2024-07-14 07:15] LABS: Hemoglobin 9.7 g/dL (14.0-18.0)
[2024-07-14 07:20] LABS: Anion Gap 2 mmol/L (4-12); Blood Urea Nitrogen 16 mg/dL (9-20); Calcium 8.8 mg/dL (8.4-10.2); Carbon Dioxide 29 mmol/L (22-30); Chloride 105 mmol/L (98-107); Estimated CRCL calculation 58 ml/min; Estimated Glomerular Filt Rate 53; Glucose 108 mg/dL (65-110); Potassium 4.5 mmol/L (3.4-5.0); Sodium 136 mmol/L (137-145)
[2024-07-14] MEDS: UMECLIDINIUM/VILANTEROL 62.5-25 MCG ELLIPTA 1 PUFF INHALATION (07:48)
[2024-07-14] MEDS: DOCUSATE SODIUM 100 MG CAPSULE PO ×2 (08:06→17:18)
[2024-07-14] MEDS: GABAPENTIN 100 MG CAPSULE PO ×2 (08:06→17:18)
[2024-07-14] MEDS: POTASSIUM CHLORIDE 10 MEQ ER TABLET PO (08:06)
[2024-07-14] MEDS: PANTOPRAZOLE 40 MG TABLET PO (08:06)
[2024-07-14] MEDS: cycloSPORINE 0.4 ML OPHTH SOLUTION 1 DROP EACH EYE ×2 (08:33→20:06)
[2024-07-14] MEDS: NACL 0.9% IRRIGATION POUR BOTTLE 500 ML (10:09)
[2024-07-14 10:26] VITALS: BP 127/44; PULSE 85; RESP 18; TEMP 36.2; O2SAT 98
[2024-07-14] MEDS: CEPHALEXIN 500 MG CAPSULE PO ×3 (12:20→20:06)
[2024-07-14 14:26] VITALS: BP 129/51; PULSE 50; RESP 18; TEMP 36.2; O2SAT 95
[2024-07-14] MEDS: HYDROcodone/acetaminophen (*CRX) 5-325 MG TABLET 1 TAB PO (15:00)
[2024-07-14] MEDS: HYOSCYAMINE SULFATE 0.125 MG TABLET SUBLINGUAL (18:24)
[2024-07-14 22:00] VITALS: BP 133/61; PULSE 60; RESP 16; TEMP 36.2; O2SAT 95
[2024-07-14 22:51] VITALS: PULSE 70; RESP 16; O2SAT 95
[2024-07-15 06:00] VITALS: BP 136/74; PULSE 91; RESP 18; TEMP 36.3; O2SAT 100
[2024-07-15] MEDS: POTASSIUM CHLORIDE 10 MEQ ER TABLET PO (07:49)
[2024-07-15] MEDS: GABAPENTIN 100 MG CAPSULE PO ×2 (07:49→16:42)
[2024-07-15] MEDS: DOCUSATE SODIUM 100 MG CAPSULE PO ×2 (07:49→16:42)
[2024-07-15] MEDS: PANTOPRAZOLE 40 MG TABLET PO (07:49)
[2024-07-15] MEDS: cycloSPORINE 0.4 ML OPHTH SOLUTION 1 DROP EACH EYE ×2 (07:50→20:04)
[2024-07-15] MEDS: CEPHALEXIN 500 MG CAPSULE PO ×4 (07:52→20:04)
[2024-07-15] MEDS: UMECLIDINIUM/VILANTEROL 62.5-25 MCG ELLIPTA 1 PUFF INHALATION (08:06)
[2024-07-15] MEDS: HYOSCYAMINE SULFATE 0.125 MG TABLET SUBLINGUAL ×3 (11:45→23:47)
--- NOTE | 2024-07-15 12:11 | P.PNUR_ITS ---
Progress Note: A&P Assessment and Plan (1) Benign prostatic hyperplasia with lower urinary tract symptoms: Code(s): N40.1 - Benign prostatic hyperplasia with lower urinary tract symptoms Status: Acute (2) Benign prostatic hyperplasia: Code(s): N40.0 - Benign prostatic hyperplasia without lower urinary tract symptoms Status: Chronic Assessment and Plan: * Stop CBI at this time * If urine remains clear without need for hand irrigation or CBI then he may be given a voiding trial tomorrow AM (07/16/2024 at 07:00) -- if voiding without angeles, is cleared for d/c home withotu angeles Subjective Subjective Date/Time Seen: 07/15/24 12:11 Interval history: No acute events overnight, urine clear at this time with CBI bags off -- patient nervous about going home given his prior hematuria events, prefers to stay one more night -- off CBI -- to optimize chance that he doesn't go into clot retention at home Review of Systems Review of Systems: All systems reviewed & are unremarkable except as noted in HPI and below Exam Const: General: no acute distress Resp: Effort & Inspection: normal respiratory effort GI: Inspection: non-distended Auscultation: normal bowel sounds Objective Data Vital Signs Vital Signs: Vital Signs - 24 hr 07/14/24 14:26 07/14/24 22:00 07/14/24 22:51 Temperature 36.2 C L 36.2 C L Pulse Rate 50 L 60 70 Respiratory Rate 18 16 16 Blood Pressure 129/51 L 133/61 Pulse Oximetry 95 95 95 Oxygen Delivery Autopap 07/14/24 20:00 07/15/24 06:00 07/15/24 08:00 Temperature 36.3 C L Pulse Rate 91 Respiratory Rate 18 Blood Pressure 136/74 Pulse Oximetry 100 Oxygen Delivery CPAP Room Air Intake/Output Intake/Output: Intake & Output 07/12/24 07/13/24 07/14/24 07/15/24 23:59 23:59 23:59 23:59 Intake Total 6350 930 550 Output Total 500 2675 Balance 5847 930 -4170 Meds/Results Medications: Active Medications Generic Name Dose Route Start Last Admin Trade Name Freq PRN Reason Stop Dose Admin Hydrocodone Bitart/Acetaminophen 1 tab 07/13/24 22:33 07/14/24 15:00 Hydrocodone/Acetaminophen (*Crx) 5-325 Mg Tablet PO 1 tab Q4H PRN Administration Pain Rated 4-6 Albuterol 1 - 2 puff 07/13/24 16:41 Albuterol Sulfate (*Sp) Aerosol 1 Puff INHALATION Q4-6H PRN sob/wheezing Albuterol 2.5 mg 07/13/24 16:41 Albuterol Sulfate Neb 2.5 Mg/3 Ml Inh INHALATION Q4-6H PRN shortness of breath or wheezing Cephalexin HCl 500 mg 07/14/24 13:00 07/15/24 11:45 Cephalexin 500 Mg Capsule PO 500 mg QID TEJAS Administration Cyclosporine 1 drop 07/13/24 21:00 07/15/24 07:50 Cyclosporine 0.4 Ml Ophth Solution EACH EYE 1 drop Q12HR TEJAS Administration Docusate Sodium 100 mg 07/13/24 16:41 Docusate Sodium 100 Mg Capsule PO .prn TEJAS Docusate Sodium 100 mg 07/13/24 17:00 07/15/24 07:49 Docusate Sodium 100 Mg Capsule PO 100 mg BID TEJAS Administration Fentanyl Citrate 25 mcg 07/13/24 15:41 Fentanyl Citrate Inj (*Crx) 100 Mcg/2 Ml Vial IV PUSH Q2M PRN Pain Furosemide 20 mg 07/13/24 16:41 Furosemide 20 Mg Tablet PO PRN PRN Edema Gabapentin 100 mg 07/13/24 17:00 07/15/24 07:49 Gabapentin 100 Mg Capsule PO 100 mg BID TEJAS Administration Hyoscyamine 0.125 mg 07/13/24 16:41 07/15/24 11:45 Hyoscyamine Sulfate 0.125 Mg Tablet SUBLINGUAL 0.125 mg Q6H PRN Administration Bladder Spasm Melatonin 10 mg 07/13/24 16:41 Melatonin 5 Mg Tablet PO HS PRN Insomnia Miscellaneous Information 0 each 07/13/24 00:01 May We Hold Home Colace & Use Post-Op Order? XX 08/12/24 00:00 CLARIFY TEJAS Miscellaneous Information 0 each 07/13/24 00:01 Fenofibrate 54 Mg Is Non-Formulary. We Stock Fenofibrate 48 Mg Or Use Pt Own Supply? XX 08/12/24 00:00 CLARIFY TEJAS Naloxone HCl 0.1 mg 07/13/24 16:41 Naloxone Hcl 0.4 Mg/Ml Vial IV PUSH Q2M PRN Opiate Reversal Non-Formulary Medication 54 mg 07/14/24 09:00 Fenofibrate PO 08/13/24 08:59 DAILY TEJAS Ondansetron HCl 4 mg 07/13/24 15:41 Ondansetron Inj 4 Mg/2 Ml Vial IV PUSH ONCE PRN Nausea Ondansetron HCl 4 mg 07/13/24 16:41 Ondansetron Inj 4 Mg/2 Ml Vial IV PUSH Q12H PRN Nausea And Vomiting Pantoprazole Sodium 40 mg 07/14/24 09:00 07/15/24 07:49 Pantoprazole 40 Mg Tablet PO 40 mg QAM TEJAS Administration Potassium Chloride 10 meq 07/14/24 09:00 07/15/24 07:49 Potassium Chloride 10 Meq Er Tablet PO 10 meq DAILY TEJAS Administration Umeclidinium/Vilanterol 1 puff 07/14/24 09:00 07/15/24 08:06 Umeclidinium/Vilanterol 62.5-25 Mcg Ellipta INHALATION 1 puff DAILY TEJAS Administration
[2024-07-15] MEDS: HYDROcodone/acetaminophen (*CRX) 5-325 MG TABLET 1 TAB PO ×3 (12:54→21:11)
[2024-07-15 14:00] VITALS: BP 121/74; PULSE 79; RESP 18; TEMP 36.5; O2SAT 98
[2024-07-15 21:25] VITALS: BP 129/51; PULSE 110; RESP 20; TEMP 36.3; O2SAT 100
[2024-07-15 22:30] VITALS: PULSE 63; RESP 23; O2SAT 94
[2024-07-16 05:18] VITALS: BP 121/65; PULSE 96; RESP 20; TEMP 36.6; O2SAT 98
[2024-07-16] MEDS: HYOSCYAMINE SULFATE 0.125 MG TABLET SUBLINGUAL (05:49)
[2024-07-16] MEDS: UMECLIDINIUM/VILANTEROL 62.5-25 MCG ELLIPTA 1 PUFF INHALATION (08:53)
[2024-07-16] MEDS: DOCUSATE SODIUM 100 MG CAPSULE PO (08:58)
[2024-07-16] MEDS: cycloSPORINE 0.4 ML OPHTH SOLUTION 1 DROP EACH EYE (08:58)
[2024-07-16] MEDS: GABAPENTIN 100 MG CAPSULE PO (08:58)
[2024-07-16] MEDS: CEPHALEXIN 500 MG CAPSULE PO (08:58)
[2024-07-16] MEDS: POTASSIUM CHLORIDE 10 MEQ ER TABLET PO (08:58)
[2024-07-16] MEDS: PANTOPRAZOLE 40 MG TABLET PO (08:58)
--- NOTE | 2024-07-16 09:07 | P.PNUR_ITS ---
Progress Note: A&P Assessment and Plan (1) Benign prostatic hyperplasia with lower urinary tract symptoms: Code(s): N40.1 - Benign prostatic hyperplasia with lower urinary tract symptoms Status: Acute (2) Benign prostatic hyperplasia: Code(s): N40.0 - Benign prostatic hyperplasia without lower urinary tract symptoms Status: Chronic Assessment and Plan: * Patient may be given a voiding trial this AM (07/16/2024) -- if voiding without angeles, is cleared for d/c home without angeles -- if unable to void, then would be discharged with angeles replaced Subjective Subjective Date/Time Seen: 07/16/24 09:07 Interval history: No acute events overnight, urine clear off of CBI for over 12 hours -- ready for voiding trial and d/c home Review of Systems Review of Systems: All systems reviewed & are unremarkable except as noted in HPI and below Exam Const: General: no acute distress Resp: Effort & Inspection: normal respiratory effort GI: Inspection: non-distended Auscultation: normal bowel sounds Objective Data Vital Signs Vital Signs: Vital Signs - 24 hr 07/15/24 14:00 07/15/24 21:25 07/15/24 20:00 Temperature 36.5 C 36.3 C L Pulse Rate 79 110 H Respiratory Rate 18 20 Blood Pressure 121/74 129/51 L Pulse Oximetry 98 100 Oxygen Delivery Room Air 07/15/24 22:30 07/16/24 02:27 07/16/24 05:18 Temperature 36.6 C Pulse Rate 63 96 Respiratory Rate 23 H 20 Blood Pressure 121/65 Pulse Oximetry 94 98 Oxygen Delivery Autopap Autopap Intake/Output Intake/Output: Intake & Output 07/13/24 07/14/24 07/15/24 07/16/24 23:59 23:59 23:59 23:59 Intake Total 6350 930 1580 Output Total 822 7046 650 Balance 7390 939 -5436 -650 Meds/Results Medications: Active Medications Generic Name Dose Route Start Last Admin Trade Name Freq PRN Reason Stop Dose Admin Hydrocodone Bitart/Acetaminophen 1 tab 07/13/24 22:33 07/15/24 21:11 Hydrocodone/Acetaminophen (*Crx) 5-325 Mg Tablet PO 1 tab Q4H PRN Administration Pain Rated 4-6 Albuterol 1 - 2 puff 07/13/24 16:41 Albuterol Sulfate (*Sp) Aerosol 1 Puff INHALATION Q4-6H PRN sob/wheezing Albuterol 2.5 mg 07/13/24 16:41 Albuterol Sulfate Neb 2.5 Mg/3 Ml Inh INHALATION Q4-6H PRN shortness of breath or wheezing Cephalexin HCl 500 mg 07/14/24 13:00 07/16/24 08:58 Cephalexin 500 Mg Capsule PO 500 mg QID TEJAS Administration Cyclosporine 1 drop 07/13/24 21:00 07/16/24 08:58 Cyclosporine 0.4 Ml Ophth Solution EACH EYE 1 drop Q12HR TEJAS Administration Docusate Sodium 100 mg 07/13/24 17:00 07/16/24 08:58 Docusate Sodium 100 Mg Capsule PO 100 mg BID TEJAS Administration Fentanyl Citrate 25 mcg 07/13/24 15:41 Fentanyl Citrate Inj (*Crx) 100 Mcg/2 Ml Vial IV PUSH Q2M PRN Pain Furosemide 20 mg 07/13/24 16:41 Furosemide 20 Mg Tablet PO PRN PRN Edema Gabapentin 100 mg 07/13/24 17:00 07/16/24 08:58 Gabapentin 100 Mg Capsule PO 100 mg BID TEJAS Administration Hyoscyamine 0.125 mg 07/13/24 16:41 07/16/24 05:49 Hyoscyamine Sulfate 0.125 Mg Tablet SUBLINGUAL 0.125 mg Q6H PRN Administration Bladder Spasm Melatonin 10 mg 07/13/24 16:41 Melatonin 5 Mg Tablet PO HS PRN Insomnia Naloxone HCl 0.1 mg 07/13/24 16:41 Naloxone Hcl 0.4 Mg/Ml Vial IV PUSH Q2M PRN Opiate Reversal Ondansetron HCl 4 mg 07/13/24 15:41 Ondansetron Inj 4 Mg/2 Ml Vial IV PUSH ONCE PRN Nausea Ondansetron HCl 4 mg 07/13/24 16:41 Ondansetron Inj 4 Mg/2 Ml Vial IV PUSH Q12H PRN Nausea And Vomiting Pantoprazole Sodium 40 mg 07/14/24 09:00 07/16/24 08:58 Pantoprazole 40 Mg Tablet PO 40 mg QAM TEJAS Administration Potassium Chloride 10 meq 07/14/24 09:00 07/16/24 08:58 Potassium Chloride 10 Meq Er Tablet PO 10 meq DAILY TEJAS Administration Umeclidinium/Vilanterol 1 puff 07/14/24 09:00 07/16/24 08:53 Umeclidinium/Vilanterol 62.5-25 Mcg Ellipta INHALATION 1 puff DAILY TEJAS Administration
== END 2024-07-16 13:55 | disposition home or self-care (01) | DRG 718 ==
LOC: ANHSURGERY 16:08 → ANH3MEDSUR 16:08
PROVIDERS: Admitting Provider Urology; PCP Family Medicine; Visit Provider Urology
PROC: 0TCB8ZZ Extirpation of Matter from Bladder, Via Natural or Artificial Opening Endoscopic (ICD-10-PCS; CPT 52001; principal; 2024-07-13 15:15)
DX: N40.1 Benign prostatic hyperplasia with lower urinary tract symptoms (principal); R31.9 Hematuria, unspecified; N32.89 Other specified disorders of bladder; N18.30 Chronic kidney disease, stage 3 unspecified; J44.9 Chronic obstructive pulmonary disease, unspecified; G47.33 Obstructive sleep apnea (adult) (pediatric); E66.01 Morbid (severe) obesity due to excess calories; Z68.39 Body mass index [BMI] 39.0-39.9, adult; Z86.718 Personal history of other venous thrombosis and embolism; Z87.891 Personal history of nicotine dependence; Z96.642 Presence of left artificial hip joint; Z90.49 Acquired absence of other specified parts of digestive tract
CPT/HCPCS: 36415; 80048; 85014; 85018; 94640; A9270; C1757; J0690; J1100; J2003; J2405; J2704; J3010; J7120; J7121

== ENCOUNTER 2024-10-04 15:47 | Outpatient (CLI) | payer MEDICARE, OTHER, SELFPAY ==
--- OUTSIDE RECORDS SUMMARY | 2024-10-04 16:05 | XMS_ITS | Encounter Summary ---
Author Organization [facility] Address [address] [place] [address] Care Team Providers Care Distribution Center Manager Name Role Phone Addi Heredia MD Primary Care Provider + [phone] Primo Heredia Primary Care Provider [phone] Addi Heredia MD Primary Care Provider + [phone] Miscellaneous, Not In File Primary Care Provider Unavailable Addi Heredia MD Primary Care Provider + [phone] Tremayne Del Real MD Primary Care Provider Miscellaneous, Not In File Primary Care Provider Unavailable Tremayne Del Real MD Primary Care Provider Miscellaneous, Not In File Primary Care Provider Unavailable Miscellaneous, Not In File Primary Care Provider Unavailable Tremayne Del Real MD Primary Care Provider Miscellaneous, Not In File Primary Care Provider Unavailable Tremayne Del Real MD Primary Care Provider Tremayne Del Real MD Primary Care Provider Miscellaneous, Not In File Primary Care Provider Unavailable Tremayne Del Real MD Primary Care Provider Miscellaneous, Not In File Primary Care Provider Unavailable Addi Heredia MD Primary Care Provider + [phone] Tremayne Del Real MD Primary Care Provider Addi Heredia MD Primary Care Provider + [phone] Addi Heredia MD Primary Care Provider + [phone] Tremayne Del Real MD Primary Care Provider Addi Heredia MD Primary Care Provider + [phone] Addi Heredia MD Primary Care Provider + [phone] Tremayne Del Real MD Primary Care Provider Addi Heredia MD Primary Care Provider + [phone] Addi Heredia MD Primary Care Provider + [phone] Tremayne Del Real MD Primary Care Provider Addi Heredia MD Primary Care Provider + [phone] Tremayne Del Real MD Primary Care Provider Addi Heredia MD Primary Care Provider + [phone] Tremayne Del Real MD Primary Care Provider Addi Heredia MD Primary Care Provider + [phone] Addi Heredia MD Primary Care Provider + [phone] Tremayne Del Real MD Primary Care Provider Aj Tejeda MD Primary Care Provider Encounter Details Date Type Department Care Team (Late st Contact Info) Description 09/03/2016 Orders Only [facility] Provider, MD Rick [address] [place] [id number] Social History Tobacco Use Types Packs/Day Years Used Date Smoking Tobacco: Never Alcohol Use Standard Drinks/Week Comments Yes 0 (1 standard drink = 0.6 oz pur e alcohol) Sex and Gender Information Value Date Recorded Sex Assigned at Not on file 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 us Historical Provider [facility] Final Result documented in this encounter Visit Diagnoses Not on filedocumented in this encounter Care Teams Distribution Center Manager Relationship Specialty Start Date End Date Addi Heredia MD [address] [place], [place] [id number] PCP - General 11/27/16 01/18/17 Primo Heredia [address] [place], [place] [id number] PCP - General 10/14/16 11/26/16 Addi Heredia MD [address] [place] [address] PCP - General 08/06/16 10/13/16 Miscellaneous, Not In File PCP - General 01/19/17 Addi Heredia MD [address] [place] [address] PCP - General 01/20/17 04/21/17 Tremayne Del Real MD PCP - General 04/22/17 04/22/17 Miscellaneous, Not In File PCP - General 04/23/17 7 Tremayne Del Real MD PCP - General 05/04/17 05/24/17 Miscellaneous, Not In File PCP - General 05/25/17 Miscellaneous, Not In File PCP - General 05/26/17 Tremayne Del Real MD PCP - General 06/01/17 06/01/17 Miscellaneous, Not In File PCP - General 06/02/17 Tremayne Del Real MD PCP - General 06/08/17 07/19/17 Tremayne Del Real MD PCP - General 07/20/17 07/20/17 Miscellaneous, Not In File PCP - General 07/21/1707/24 Tremayne Del Real MD PCP - General 07/25/17 08/03/17 Miscellaneous, Not In File PCP - General 08/04/1708/08 Addi Heredia MD [address] [place] [address] PCP - General 08/09/17 08/09/17 Tremayne Del Real MD PCP - General 08/10/17 08/17/17 Add[place] [address] PCP - General 08/18/17 08/24/17 Addi Heredia MD [address] [place] [address] (Fax) PCP - General 08/25/17 08/25/17 Tremayne Del Real MD PCP - General 08/26/17 09/02/17 Addi Heredia MD [address] [place] [address] (Fax) PCP - General 09/03/17 09/06/17 Addi Heredia MD [address] [place] [address] (Fax) PCP - General 09/07/17 09/13/17 Tremayne Del Real MD PCP - General 09/14/17 09/15/17 Addi Heredia MD [address] [place] [address] (Fax) PCP - General 09/16/17 09/16/17 Addi Heredia MD [address] [place] [address] (Fax) PCP - General 09/17/17 09/29/17 Tremayne Del Real MD PCP - General 09/30/17 10/12/17 Addi Heredia MD [address] [place] [address] (Fax) PCP - General 10/13/17 10/14/17 Tremayne Del Real MD PCP - General 10/15/17 10/15/17 Addi Heredia MD [address] [place], [place] [id number] PCP - General 10/16/17 10/20/17 Tremayne Del Real MD PCP - General 10/21/17 11/09/17 Addi Heredia MD [address] [place] [address] PCP - General 11/10/17 11/10/17 Addi Heredia MD [address] [place] [address] PCP - General 11/11/17 11/21/17 Tremayne Del Real MD PCP - General 11/22/17 10/05/18 Aj Tejeda MD [address] [place] [address] PCP - General 10/06/18 documented as of this encounter
--- OUTSIDE RECORDS SUMMARY | 2024-10-04 16:05 | XMS_ITS | Clinical Summary ---
Author Organization [facility] Address [address] [place] [id number] Care Team Providers Care Station Mechanic Name Role Phone Unavailable Primary Care Provider Unavailabl e Social History Tobacco Use Types Packs/Day Years Used Date Smoking Tobacco: Never Assessed Sex and Gender Information Value Date Recorded Sex Assigned at Not on file Legal Sex Male 4:07 PM CDT Gender Identity Not on file Sexual Orientation Not on file Plan of Treatment Health Maintenance Due Date Last Done Comments DTaP, Tdap and Td Vaccines ( 1 - Tdap) 1962 Zoster Vaccines (1 of 2) 1993 Pneumococcal Vaccine: 65+ Ye ars (1 of 1 - PCV) 2008 RSV Immunization or 60+ Years (1 - 1-dose 75+ series) 2018 COVID-19 Vaccine ( - 2023-2 5 season) 2024 Influenza Adult (#1) 2024 Meningococcal B Vaccine Aged Out No l onger eligible based on patient's age to complete this topic Meningococcal Vaccine Aged Out No rigoberto ulysses eligible based on patient's age to complete this topic RSV Immunizations Under 20 Months Aged Out No longer eligible based on patient's age to complete this topic
--- OUTSIDE RECORDS SUMMARY | 2024-10-04 16:05 | XMS_ITS | Clinical Summary ---
Author Organization [facility] Address [address] [place] [address] Care Team Providers Care V Belt Inspector Name Role Phone Aj Tejeda MD Primary Care Provider Allergies Active Allergy Reactions Criticality Noted Date Comments Morphine Mental status changes,Other (See comments),Delusions Medium 04/06/2013 Reaction: Other Opioids - Morphine Analogues Mental status changes,Hallucinations ,Agitation Medium Opioids-Meperidine And Related Delusions Medium 04/06/2013 Medications ascorbic acid (vitamin C) 1,000 mg tablet take 1 by Oral route once 0 0 12/01/19 17 Active finasteride (PROSCAR) 5 mg tablet Take 1 tablet (5 mg total) by mouth combiner operator before breakfast Active multivitamin tablet Take 1 tablet by mouth combiner operator before breakfast Active tamsulosin (FLOMAX) 0.4 mg extended release capsule Take 1 capsule (0.4 mg total) by mouth nightly Active gabapentin (NEURONTIN) 100 mg capsule Take 1 capsule (100 mg total) by mouth nightly 03/19/20 20 Active albuterol HFA (PROVENTIL HFA,VENTOLIN HFA,PROAIR HFA) 90 mcg/actuation inhaler INHALE 1 TO 2 PUFFS BY MOUTH EVERY 4 TO 6 HOURS NEEDED FOR SHORTNESS OF BREATH OR WHEEZING 05/26/20 22 Active fenofibrate (TRICOR) 54 mg tablet Take 1 tablet (54 mg total) by mouth daily Active potassium chloride ER 10 mEq CR tablet Take 1 tablet/capsule (10 mEq total) by mouth daily 07/26/20 23 Active omega 9-ypa-syv-fish oil (Fish OiL) 1,000 mg (120 mg-180 mg) capsule Take 1 capsule (1,000 mg total) by mouth 2 (two) times a day 04/07/20 13 Active cycloSPORINE (RESTASIS) 0.05 % ophthalmic emulsion Administer 1 drop into both eyes every 12 (twelve) hours 09/29/19 24 Active Stiolto Respimat 2.5-2.5 mcg/actuation inhaler 08/02/20 23 Active furosemide (LASIX) 20 mg tabletIndicati ons:Bilateral lower extremity edema TAKE 1 TABLET DAILY NEEDED FOR SWELLING 90 tablet 2 05/17/20 24 Active amiodarone (PACERONE) 100 mg tablet Take 1 tablet (100 mg total) by mouth daily Active Eliquis 5 mg tablet TAKE 1 TABLET TWICE A DAY 90 tablet 7 09/08/19 25 Active Eliquis 5 mg tablet TAKE 1 TABLET TWICE A DAY 90 tablet 2 02/21/20 24 025 Discontinued Active Problems Problem Noted Date Diagnosed Date Chronic anticoagulation 05/30/2024 Atrial fibrillation ([facility]) 04/21/2024 A-fib ([facility]) 02/21/2024 Persistent atrial fibrillation 08/26/2023 Morbid obesity with BMI of 40.0-44.9, adult 04/30 Essential hypertension 02/17/2023 Facet arthropathy, lumbar 04/29/2022 Lumbar radiculopathy 04/17/2022 Bradycardia 04/08/2022 Greater trochanteric bursitis of right hip 03/09 Sacroiliitis 03/09/2022 Pre-operative cardiovascular examination 021 History of DVT of lower extremity 04/22/2020 Polyneuropathy 04/03/2020 Bilateral lower extremity edema 12/18/2019 Hyperglycemia 11/14/2018 Spinal stenosis of lumbar region 05/09/2018 Bilateral sciatica 05/09/2018 Other chronic pain 02/01/2018 AYERS (dyspnea on exertion) 06/11/2017 Chronic kidney disease 06/11/2017 MELANIE (obstructive sleep apnea) 06/11/2017 Chronic back pain 06/11/2017 Cephalalgia 05/26/2017 Neuralgia 05/25/2017 No diagnosis on Winston I 05/04/2017 Memory impairment 04/22/2017 Degeneration of intervertebral disc of lumbar re gion 08/06/2016 Overview (12/04/2016): Degeneration of lumbar intervertebral disc Pain in joint involving pelvic region and thigh 07/01/2015 Fatigue 02/14/2015 Overview (12/04/2016): Fatigue Increased frequency of urination 02/14/2015 Overview (12/04/2016): Urinary frequency Abnormal cardiovascular stress test 10/12/2014 Overview (12/04/2016): Abnormal stress test Hypertriglyceridemia 10/12/2014 Overview (12/04/2016): Hypertriglyceridemia Cervicalgia 02/15/2014 Numbness 02/15/2014 Surgical follow-up care 03/11/2012 Arthralgia of hip 06/21/2009 Erectile dysfunction Resolved Problems Problem Noted Date Diagnosed Date Resolved Date Failed spinal cord stimulator (CMS/HCC) 04/03/2022 06/25/2022 Glucose intolerance 11/14/2018 11/15/19 19 Postlaminectomy syndrome of lumbar region 06/22/2018 04/17/2022 Post-dural puncture headache 06/05/2017 02/01/2018 Immunizations Name Administration Dates Next Due TD Preservative Free 05/08/2011 Surgical History Surgery Date Site/Laterality Comments LAPAROSCOPIC NEPHRECTOMY 08/30/1999 - 08/29/2000 cancer PROTOCOLECTOMY REPLACEMENT TOTAL HIP LATERA L POSITION 08/30/2004 - 08/29/2005 Bilateral APPENDECTOMY 08/30/2009 - 08/29/2010 LUMBAR SPINE SURGERY 08/30/2011 - 08/29/2012 stimulator EPIDURAL INJECTION LUMBOSACRAL 07/03/2015 N/A COLON SURGERY 08/30/2001 - 08/29/2002 cancer TONSILLECTOMY 08/30/1947 - 08/29/1948 CARDIOVERSION 04/21/2024 NEPHRECTOMY Medical History Medical History Date Comments Hx Other Medical obesity, I. 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 Atrial fibrillation (CMS/HCC ) (HCC) Borderline diabetic Family History Medical History Relation Name Comments Cancer Brother 1 Michael Daigle Cancer Brother 2 Yomi Daigle Prostate cancer Brother 2 Yomi Daigle Cancer, pros trejo; Cause of : Cancer, prostate Bleeding Disorder Brother 3 Jason Daigle COPD Brother 3 Jason Daigle Clotting disorder Brother 3 Jason Daigle Hearing loss Brother 3 Jason Daigle Kidney disease Brother 3 Jason Daigle Obesity Brother 3 Jason Daigle Cancer Father Ismael Daigle Emphysema Father Ismael Daigle Emphysema; Alzheimer's disease Mother Laura Causey Alzhei beatrice's disease; Cancer Sister Petty Ovalle Anesthesia problems Neg Hx Relation Name Status Comments Brother 1 Michael Daigle Brother 2 Yomi Daigle Brother 3 Jason Daigle Father Ismael Daigle (Age 90) Mother Laura Causey (Age 101) Sister Petty Ovalle Social History Tobacco Use Types Packs/Day Years Used Date Smoking Tobacco: Former Cigarettes Q uit: 1950 Smokeless Tobacco: Never Tobacco Cessation:Counseling Given: Not Answered Alcohol Use Standard Drinks/Week Comments Yes 6 (1 standard drink = 0.6 oz pur e alcohol) AUDIT-C Answer Date Recorded Q1: How often do you have a drink containing alc ohol? 2-4 times a month 04/21/2024 Q2: How many drinks containi ng alcohol do you have on a typical day when you are drinking? 1 or 2 04/21/2024 Q3: How often do you have si x or more drinks on one occasion? Never 04/21/2024 Personal Safety Answer Date Recorded Have you ever been in or are you currently in a harmful physical or emotional relationship or is someone making you feel afraid or unsafe? 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 Gender Identity Male 04/01/2020 9:43 AM CDT Sexual Orientation Straight 11/07/2018 9: 10 PM CDT Occupation Industry Job Start Date Job End Date retired Not on file Not on file Not on file Obstetrics History Last Filed Vital Signs Vital Sign Reading Time Taken Comments Blood Pressure 124/78 05/30/2024 11:02 AM CDT Pulse 47 05/30/2024 11:02 AM CDT Temperature 37 C (98.6 F) 02/21/2024 1:23 PM CDT Respiratory Rate 18 04/21/2024 8:50 AM CDT Oxygen Saturation 96% 05/30/2024 11:02 AM CDT Inhaled Oxygen Concentration - - Weight 137.9 kg (304 lb) 05/30/2024 11:02 AM CDT Height 185.4 cm (6' 1 ) 05/30/2024 11:02 AM CDT Body Mass Index 40.11 05/30/2024 11:02 AM CDT Plan of Treatment Health Maintenance Due Date Last Done Comments Albumin Creatinine Ratio, Urine 1943 Depression Screening 1945 Dilated Eye Exam 1943 Foot Exam 1943 Hepatitis B Screening 1961 Abdominal Aortic Aneurysm (A AA) Screen 2008 Well Visit 65+ 2008 Zoster Vaccine (2 of 3) 07/18/2013 05/23/2013 Pneumococcal vaccine 65+ (2 of 2 - PPSV23 or PCV20) 06/10/2015 04/15/2015, 04/06/2013 Lipid Panel 10/31/2020 11/01/2019, 07/30, 06/11/2017 DTaP/Tdap/Td Vaccine (2 - Td or Tdap) 10/28/2021 10/29/2011, 05/08/2011 Covid-19 Vaccine (4 - 2023-2 5 season) 2024 09/19/2021, 11/23/2020, 10/26/2020 Influenza Vaccine (#1) 2024 , 05/30/2014, 06/18/2013, Additional history exists Hemoglobin A1C 08/19/2024 02/18/2024, 12/07/2018 eGFR 03/28/2025 03/28/2024, 01/29, 01/30/2020 Fall Risk Assessment 04/21/2025 04/21/2024, 03/28/2024, 01/30/2020 Goals Goal Patient Goal Type Associated Problems Recent Progress Patient-Stated? Author CCM Chronic Pain Care Plan Chronic Care Management Improving( 12:49 PM CDT) Cailin Parry RN Note: Problem: Chronic Pain Goals: 1. Minimize further functional decline 2. Maximize quality of life 3. Control pain Strategies: - Activity/exercise program recommendation - Conservative stepwise pain medicine strategy with multi-disciplinary approach - Recommend healthy lifestyle strategies and compensatory methods as needed Medical Devices Implanted Type Area Product Manager E Commerce Device Identifier Shelf Expiration Date Model / Serial / Lot [employer] Proclaim Elite 4.95cmx5.55cm 5 Implantable Pulse Tonic 3660 Contrlsys - [id number] Implanted:Qty: 1 on 05/14/2022 by Shawn Boyce MD PhD at [facility] Other - see comments N/A: Back [employer] 3660 CONTRLSYS / / Description:Pulse generator Spinal Cord Stimulator-06/2017 Implanted:07/30 by Lamonte Donahue MD (Quantity not on file) Spinal Cord Stimulator Back [employer] Description:Model name lead1 [id number] Serial [id number] Implanted date 08-09-17 NEVRO SPINAL CORD STIMULATOR Per the vendor, this patients device exceeds the allowed impedence to safely have an MRI without surgical replacement Hip Bilater al: Hip Description:Total hip replac ment x2 [employer] Vascade Mvp 6-12fr Venous Closure [id number] - [id number] Implanted:Qty: 1 on 02/21/2024 by Abhilash Smith MD at [facility] 11/07/2025 800-612C-10 U / / [id number] A [employer] Vascade Mvp 6-12fr Venous Closure [id number] - [id number] Implanted:Qty: 1 on 02/21/2024 by Abhilash Smith MD at [facility] 11/07/2025 800-612C-10 U / / [id number] [employer] Vascade Mvp 6-12fr Venous Closure [id number] - [id number] Implanted:Qty: 1 on 02/21/2024 by Abhilash Smith MD at [facility] 11/07/2025 800-612C-10 U / / [id number] A Procedures Procedure Name Priority Date/Time Associated Diagnosis Comments EGFR Routine 03/28/2024 11:25 AM CDT Anticoagulation management encounter HEMOGLOBIN A1C Routine 02/18/2024 12:22 PM CDT Encounter for preadmission testing 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 73 m2 Comment: Interpretive Data Reference Interval Normal >/= 90 mL/min/1.73m2 Mildly decreased* 60 - 89 mL/min/1.73m2 Mildly to moderately decreased 45 - 59 mL/min/1.73m2 Moderately to severely decreased 30 - 44 mL/min/1.73m2 Severely decreased 15 - 29 mL/min/1.73m2 Kidney Failure < 15 mL/min/1.73m2 *Relative to young adult level Estimated glomerular filtration rate is determined by the 2020 CKD-EPI equation recommended by the National Kidney Foundation (A Unifying Approach to GFR Estimation: Recommendations of the NKF-ASK Task Force on Reassessing the Inclusion of Race in Diagnosing Kidney Disease, JASN 2020). The CKD-EPI equation should not be used for patients with unstable renal function and has not been validated in children and those over 70. Current interpretive data was last reviewed 2021. Testing performed by: [facility], [facility] [address], [place]IA Lilly [address] Blood 03/28/2024 11:2 5 AM CDT 03/28/2024 12:07 PM CDT us Nereyda Ravi NP LAB BLOOD ORDERABLES Final Res ult BIPIN [id number] [facility] [place] [address] * (ABNORMAL) Hemoglobin A1c (02/18/2024 12:22 PM CDT) Hgb A1C 5.9(H) 4.0 - 5.6 % Estimated Average Glucose 123 mg/dL BIPIN Comment: The ADA recommends reporting an estimated Average Glucose (eAG) with all Hemoglobin A1c results using the equation derived from a study of 507 normal and diabetic adults. Minority populations were underrepresented and children were not included. (Diabetes Care 31:3629-3650, 2008). The eAG is not equivalent to a fasting glucose. Blood 02/18/2024 12:2 2 PM CDT 02/18/2024 12:22 PM CDT Crystal Harrell NP LAB BLOOD ORDERABLES Final Res ult Performing Organization Address [facility] Co de Phone Number BIPIN [id number] [place] [address] * Lipid panel (11/01/2019) SCRIBED Cholesterol, Total 158 <200 EXTERNAL LAB SCRIBED HDL 22 >40 EXTERNAL LAB SCRIBED LDL 82 <100 EXTERNAL LAB SCRIBED Triglycerides 262 <150 EXTERNAL LAB Blood specimen (specimen) Historical Provider MD LAB BLOOD ORDERABLES Edit ed Result - Final EXTERNAL LAB from Last 3 Months or Most Recently Relevant to Health Maintenance Insurance [employer] MEDICARE [facility] MEDICARE MEDICARE FOR LIFE Advance Directives For more information, please contact: [phone] * Full Code (Latest Code Status on File) Date Activated Date Inactivated Comments 07/14/2018 10:13 AM 07/14/2018 12:31 PM Care Teams V Belt Inspector Relationship Specialty Start Date End Date Aj Tejeda MD [address] [facility] [address] [place] [address] PCP - General 10/06/18
--- OUTSIDE RECORDS SUMMARY | 2024-10-04 16:05 | XMS_ITS | Referral Summary ---
Author Organization [facility] Address [address] [place] [address] Care Team Providers Care Mammography Supervisor Name Role Phone Aj Tejeda MD Primary [...] 1 tablet (5 mg total) by mouth jointer machine before breakfast Active multivitamin tablet Take 1 tablet by mouth jointer machine before breakfast Active tamsulosin (FLOMAX) 0.4 mg [...] by mouth daily 07/26/20 23 Active omega 9-rmt-fzt-fish oil (Fish OiL) 1,000 mg (120 mg-180 [...] Diagnosed Date Chronic anticoagulation 05/30/2024 Atrial fibrillation ([facility]) 04/21/2024 A-fib ([facility]) 02/21/2024 Persistent atrial fibrillation 08/26/2023 Morbid obesity [...] Cephalalgia 05/26/2017 Neuralgia 05/25/2017 No diagnosis on [place] I 05/04/2017 Memory impairment 04/22/2017 Degeneration of [...] Dates Next Due TD Preservative Free 05/08/2011 Social History Tobacco Use Types Packs/Day Years [...] on file 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 Gender Identity Male 04/01/2020 9:43 AM CDT Sexual Orientation Straight 11/07/2018 9: 10 PM CDT Occupation Industry Job Start Date Job End Date retired Not on file Not on file Not on file Last Filed Vital Signs Vital Sign Reading [...] 05/30/2024 11:02 AM CDT Plan of Treatment Not on file Goals Goal Patient Goal Type Associated Problems [...] as needed Medical Devices Implanted Type Area Dictaphone Mechanic Device Identifier Shelf Expiration Date Model / Serial / Lot [employer] Proclaim Elite 4.95cmx5.55cm 5 Implantable Pulse Tonic 3660 Contrlsys - [id number] Implanted:Qty: 1 on 05/14/2022 by Shawn Boyce MD PhD at [facility] Other - see comments N/A: Back [employer] 3660 CONTRLSYS / / Description:Pulse generator Spinal Cord Stimulator-06/2017 Implanted:07/30 by Lamonte Donahue MD (Quantity not on file) Spinal Cord Stimulator Back SENSIM[employer] Alejandra Description:Model name lead1 [id number] Serial [id number] Implanted date 08-09-17 NEVRO SPINAL CORD STIMULATOR Per the vendor, this patients device exceeds the allowed impedence to safely have an MRI without surgical replacement Hip Bilater al: Hip Description:Total hip replac ment x2 [facility] Vascade Mvp 6-12fr Venous Closure [id number] - [id number] Implanted:Qty: 1 on 02/21/2024 by Abhilash Smith MD at [facility] 11/07/2025 800-612C-10 U / / [id number] A [facility] [employer] Vascade Mvp 6-12fr Venous Closure [id number] - [id number] Implanted:Qty: 1 on 02/21/2024 by Abhilash Smith MD at [facility] 11/07/2025 800-612C-10 U / / [id number] [facility] [employer] Vascade Mvp 6-12fr Venous Closure [id number] - [id number] Implanted:Qty: 1 on 02/21/2024 by Abhilash Smith MD at [facility] 11/07/2025 800-612C-10 U / / [id number] Procedures Procedure Name Priority Date/Time Associated [...] of Race in Diagnosing Kidney Disease, JASN 202). The CKD-EPI equation should not be used for patients with unstable renal function and has not been validated in children and those over 70. Current interpretive data was last reviewed 2021. Testing performed by: [facility], [address] [place] [address], [place] [address] Blood 03/28/2024 11:2 5 AM CDT 03/28/2024 12:07 PM CDT Nereyda Ravi BASIC ACOUSTIC ANALYST LAB BLOOD ORDERABLES Final Res ult Performing Organization Address [facility] de Phone Number BIPIN [id number] [place] [address] * (ABNORMAL) Hemoglobin A1c (02/18/2024 12:22 PM CDT) Hgb A1C 5.9(H) 4.0 - 5.6 % Estimated Average Glucose 123 mg/dL BIPIN PERALTA Comment: The ADA recommends reporting an estimated Average Glucose (eAG) with all Hemoglobin A1c results using the equation derived from a study of 507 normal and diabetic adults. Minority populations were underrepresented and children were not included. (Diabetes Care 31:5958-0678, 2008). The eAG is not equivalent to a fasting glucose. Blood 02/18/2024 12:2 2 PM CDT 02/18/2024 12:22 PM CDT Crystal Harrell BASIC ACOUSTIC ANALYST LAB BLOOD ORDERABLES Final Res ult Performing Organization Address [facility]/ZIP Co de Phone Number BIPIN PERALTA [id number] [place] [address] * Lipid panel (11/01/2019) SCRIBED Cholesterol, Total 158 <200 EXTERNAL LAB SCRIBED HDL 22 >40 EXTERNAL LAB SCRIBED LDL 82 <100 EXTERNAL LAB SCRIBED Triglycerides 262 <150 EXTERNAL LAB Blood specimen (specimen) Historical Provider LAB BLOOD ORDERABLES Edit ed Result - Final EXTERNAL LAB from Last 3 Months or Most Recently Relevant to Health Maintenance Insurance [email or web address] FOR LIFE MEDICARE [email or web address] FOR LIFE MEDICARE MEDICARE [facility] Advance Directives For more information, please contact: [phone] * Full Code (Latest Code Status on File) Date Activated Date Inactivated Comments 07/14/2018 10:13 AM 07/14/2018 12:31 PM Care Teams Mammography Supervisor Relationship Specialty Start Date End Date Aj Tejeda MD [address] [facility] [address] [place] [id number] PCP - General 10/06/18
--- OUTSIDE RECORDS SUMMARY | 2024-10-04 16:05 | XMS_ITS | Encounter Summary ---
Author Organization [facility] Healthcare Address [address] [place] [address] Care Team Providers Care Pot Filler Name Role Phone Aj Tejeda MD Primary Care Provider Reason for Visit * Reason Onset Date Comments Med Refill 11/24/2018 Encounter Details Date Type Department Care Team (Late st Contact Info) Description 11/24/2018 Telephone [facility] [place] [facility] [address] [facility] [address] [place] [id number] Lamonte Donahue MD [address] [place] [address], [address] [place] [address] Med Refill Social History Tobacco Use Types Packs/Day Years Used Date Smoking Tobacco: Former Smokeless Tobacco: Never Alcohol Use Standard Drinks/Week Comments Yes 6 (1 standard drink = 0.6 oz pur e alcohol) Sex and Gender Information Value Date Recorded Sex Assigned at Not on file 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 Author CCM Chronic Pain Care Plan Chronic Care Management Improving( 12:49 PM CDT) No Cailin Anders RN Note: Problem: Chronic Pain Goals: 1. Minimize further functional decline 2. Maximize quality of life 3. Control pain Strategies: - Activity/exercise program recommendation - Conservative stepwise pain medicine strategy with multi-disciplinary approach - Recommend healthy lifestyle strategies and compensatory methods as needed documented as of this encounter Visit Diagnoses Not on filedocumented in this encounter Care Teams Pot Filler Relationship Specialty Start Date End Date Aj Tejeda MD [address] [facility] [address] [place] [address] PCP - General 10/06/18 documented as of this encounter
--- OUTSIDE RECORDS SUMMARY | 2024-10-04 16:05 | XMS_ITS | Continuity of Care Document ---
Author Name [facility] Organization [facility] Care Team Providers Care Product Marketing Manager Name Role Phone [facility] Unavailable Unavailable Problems Combined list of problems from Department of Defense and Veterans Affairs facilities. It does not include entries that were removed or entered in error. 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 cataract senile nuclear Active Condition [facility] presbyopia Active Condition DoD dehiscence of surgical wound Active Condition [facility] Aftercare Following Surgery Inactive Condition DoD colon cancer Active Condition DoD sinusitis Active Condition DoD pain during urination (dysuria) Active Condition [facility] visit for: administrative purpose Active Condition DoD upper respiratory infection Active Condition Pt to take medication as Rx, to drink plenty of fluids, to use cough gtts liberally and to follow-up if sx are not getting better in 3-[address] [facility] Laboratory Studies Active Condition DoD routine history and physical adult (18 - 64 yrs) Active Condition wnl exam, discussed lifestyle changes, diet, exercise, increase water intake and f/u plan for three month eval. Pt understands. DoD hearing loss Active Condition med tri al - due to pruritis, pt to have hearing eval and [facility]. 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 arthritis Active Condition med refill - working well for patient DoD X-Ray Active Condition screening - prior to physical [facility] visit for: screening malignant neoplasm colon Active Condition c-scope #5933. Consult for General Surgery entered. [facility] visit for: laboratory Active Condition DoD arthritis Active Condition [facility] Patient Education Active Condition Di scussed the importance of getting completely tobacco-free as soon as possible. Reminded him that he only has one more prescription of Chantix coming to him. Discussed avoiding drinking at the [employer] for some time. His term off office ends Jan. DoD nicotine dependence Active Condition Refill for Chantix. DoD Medications Combined list of outpatient medications from Department of Defense and Veterans Affairs facilities.Medications provided include 1) outpatient medications from the last 15 months, and 2) patient-reported medications. Medication Details Route Status Patient Instructions Prescription Expires Prescription Number Last Dispense Date Ordering Provider Order Date Order Qty Source ALBUTEROL SULFATE HFA (albuterol sulfate), 90 MCG, HFA AER AD, INHALATION, TEVA [place], 8.5 g CANISTER Active [id number] 2023 25.5 Pharmac y Data Transac tion Service Facilit y ASCORBIC ACID 500MG TAB TAKE ONE TABLET BY MOUTH ONCE A DAY ORAL ACTIVE Nadine GREENE 2012 [facility] CEPHALEXIN (CEPHALEXIN MONOHYDRATE ), 500MG, CAPSULE, ORAL, TEVA [place], 500 ea. BOTTLE Active [id number] 4 2023 60 Pharmac y Data Transac tion Service Facilit y CEPHALEXIN (CEPHALEXIN MONOHYDRATE ), 500MG, CAPSULE, ORAL, TEVA [place], 500 ea. BOTTLE Active [id number] 2023 60 Pharmac y Data Transac tion Service Facilit y CYCLOSPORIN E (cyclospori ne), 0.05 %, DROPERETTE, OPHTHALMIC, APOTEX BECKY, 30 ea. VIAL Active [id number] 4 2023 180 Pharmac y Data Transac tion Service Facilit y CYCLOSPORIN E (cyclospori ne), 0.05 %, DROPERETTE, OPHTHALMIC, APOTEX BECKY, 60 ea. VIAL Cancele d [id number] : 2023 0 Pharmac y Data Transac tion Service Facilit y CYCLOSPORIN E (cyclospori ne), 0.05 %, DROPERETTE, OPHTHALMIC, APOTEX BECKY, 60 ea. VIAL Active [id number] 2023 180 Pharmac y Data Transac tion Service Facilit y CYCLOSPORIN E (cyclospori ne), 0.05 %, DROPERETTE, OPHTHALMIC, APOTEX BECKY, 60 ea. VIAL Cancele d [id number] : 2023 0 Pharmac y Data Transac tion Service Facilit y ELIQUIS (APIXABAN), 5 MG, TABLET, ORAL, BMS PRIMARYCARE , 60 ea. BOTTLE Active [id number] 2023 90 Pharmac y Data Transac tion Service Facilit y ELIQUIS (APIXABAN), 5 MG, TABLET, ORAL, BMS PRIMARYCARE , 60 ea. BOTTLE Active [id number] 2023 180 Pharmac y Data Transac tion Service Facilit y ELIQUIS (APIXABAN), 5 MG, TABLET, ORAL, BMS PRIMARYCARE , 60 ea. BOTTLE Active [id number] 2023 180 Pharmac y Data Transac tion Service Facilit y ELIQUIS (APIXABAN), 5 MG, TABLET, ORAL, BMS PRIMARYCARE , 60 ea. BOTTLE Cancele d [id number] : 2023 0 Pharmac y Data Transac tion Service Facilit y ELIQUIS (APIXABAN), 5 MG, TABLET, ORAL, BMS PRIMARYCARE , 60 ea. BOTTLE Active [id number] 2022 60 Pharmac y Data Transac tion Service Facilit y FENOFIBRATE (fenofibrat e), 54 MG, TABLET, ORAL, AMNEAL PHARMACE, 90 ea. BOTTLE Active [id number] 2023 90 Pharmac y Data Transac tion Service Facilit y FENOFIBRATE (fenofibrat e), 54 MG, TABLET, ORAL, AMNEAL PHARMACE, 90 ea. BOTTLE Active [id number] 2023 90 Pharmac y Data Transac tion Service Facilit y FINASTERIDE (FINASTERID E), 5 MG, TABLET, ORAL, CAMBER PHARMACE, 30 ea. BOTTLE Active [id number] 4 2023 90 Pharmac y Data Transac tion Service Facilit y FISH OIL 1000MG (500MG DHA/EPA) CAP,ORAL TAKE 1 CAPSULE BY MOUTH TWICE A DAY ORAL ACTIVE Nadine GREENE 2012 [facility] FUROSEMIDE (furosemide ), 20 MG, TABLET, ORAL, AVKARE, 1000 ea. BOTTLE Active [id number] 4 2023 90 Pharmac y Data Transac tion Service Facilit y FUROSEMIDE (furosemide ), 20 MG, TABLET, ORAL, AVKARE, 1000 ea. BOTTLE Active [id number] 2023 90 Pharmac y Data Transac tion Service Facilit y GABAPENTIN (gabapentin ), 100 MG, CAPSULE, ORAL, [employer] 1000 ea. BOTTLE Active [id number] 2023 90 Pharmac y Data Transac tion Service Facilit y GABAPENTIN (gabapentin ), 100 MG, CAPSULE, ORAL, XLCARE PHARMACE, 500 ea. BOTTLE Active [id number] 4 2023 180 Pharmac y Data Transac tion Service Facilit y GABAPENTIN (gabapentin ), 100 MG, CAPSULE, ORAL, XLCARE PHARMACE, 500 ea. BOTTLE Active [id number] 2023 90 Pharmac y Data Transac tion Service Facilit y GABAPENTIN 300MG CAP TAKE 2 CAPSULES BY MOUTH AT BEDTIME ORAL ACTIVE SRUTHI CIFUENTES 2013 [facility] GLUCOSAMINE CAP/TAB TAKE 1 CAP/TAB BY MOUTH ORAL ACTIVE Nadine GREENE 2012 [facility] HYDROCHLORO THIAZIDE 50MG/TRIAMT ERENE 75MG TAB TAKE ONE TABLET BY MOUTH EVERY MORNING ORAL ACTIVE Nadine GREENE 2012 [facility] LISINOPRIL 20MG TAB TAKE ONE-HALF TABLET BY MOUTH ONCE A DAY ORAL ACTIVE BRIAN JIN 2014 [facility] METOLAZONE 2.5MG TAB TAKE TWO TABLETS BY MOUTH ONCE A DAY ORAL ACTIVE BRIAN JIN 2014 [facility] PANTOPRAZOL E SODIUM (pantoprazo le sodium), 40 MG, TABLET DR, ORAL, [employer] 1000 ea. BOTTLE Active [id number] 2023 90 Pharmac y Data Transac tion Service Facilit y POTASSIUM CHLORIDE (potassium chloride), 10 MEQ, TABLET ER, ORAL, AVKARE, 500 ea. BOTTLE Active [id number] 4 2023 90 Pharmac y Data Transac tion Service Facilit y POTASSIUM CHLORIDE (potassium chloride), 10 MEQ, TABLET ER, ORAL, AVKARE, 500 ea. BOTTLE Active [id number] 4 2023 90 Pharmac y Data Transac tion Service Facilit y POTASSIUM CHLORIDE (potassium chloride), 10 MEQ, TABLET ER, ORAL, AVKARE, 500 ea. BOTTLE Active [id number] 4 2023 90 Pharmac y Data Transac tion Service Facilit y STIOLTO RESPIMAT (tiotropium bromide/olo daterol HCl), 2.5-2.5MCG, MIST INHAL, INHALATION, BOEHRINGER ING., 4 g AER W/ADAP Active [id number] 4 2023 12 Pharmac y Data Transac tion Service Facilit y STIOLTO RESPIMAT (tiotropium bromide/olo daterol HCl), 2.5-2.5MCG, MIST INHAL, INHALATION, BOEHRINGER ING., 4 g AER W/ADAP Active [id number] 2023 12 Pharmac y Data Transac tion Service Facilit y SULFAMETHOX AZOLE-TRIME THOPRIM (SULFAMETHO XAZOLE/TRIM ETHOPRIM), 800-160MG, TABLET, ORAL, AUROBINDO PHARM, 500 ea. BOTTLE Active [id number] 2023 14 Pharmac y Data Transac tion Service Facilit y TAMSULOSIN HCL (TAMSULOSIN HCL), 0.4 MG, CAP.SR 24H, ORAL, ZYDUS PHARMACEU, 1000 ea. BOTTLE Active [id number] 4 2023 90 Pharmac y Data Transac tion Service Facilit y TAMSULOSIN HCL (TAMSULOSIN HCL), 0.4 MG, CAP.SR 24H, ORAL, ZYDUS PHARMACEU, 1000 ea. BOTTLE Active [id number] 4 2023 90 Pharmac y Data Transac tion Service Facilit y TERBINAFINE HCL 250MG TAB TAKE ONE TABLET BY MOUTH ONCE A DAY ORAL ACTIVE ANNABELIN GRID D 2014 [facility] TESTOSTERON E CYPIONATE 200MG/ML INJ,1ML (IN OIL) INJECT 400MG/2M L DEEP INTRAMUS CULARLY INTRAM USCULA R ACTIVE ANNABELIN GRID D 2014 [facility] VITAMIN B COMPLEX CAP TAKE 1 CAPSULE BY MOUTH QAM ORAL ACTIVE Nadine GREENE 2012 [facility] Allergies, Adverse Reactions, Alerts Combined list of allergies from Department of [facility] and Veterans Affairs facilities. It does not include entries that were removed or entered in error. Substance Category Reaction Severity Reaction type Status Date Reported Comments Source ANALGESIC(O PIOD) [facility] Drug allergy (disorder) Delirium active 3 [facility] MORPHINE Propensity to adverse reactions to drug (finding) Delirium active [address] [place] [address] DIVISION Immunizations Combined list of available immunizations from the Department of Defense and Veterans Affairs facilities. Immunization Series Date Given Administered By Site Reaction Lot Number CVX Code Drug International Bank Manager Status Comments Source influenza, high-dose, quadrivalent 2021 LUIS MIGUEL, () Not Given influenza , high-dose , quadrival ent DoD COVID-19, mRNA, LNP-S, PF, 100 mcg or 50 mcg dose 2021 LUIS MIGUEL, [employer] (MOD) Not Given COVID-19, mRNA, LNP-S, PF, 100 mcg or 50 mcg dose DoD COVID-19, mRNA, LNP-S, PF, 100 mcg or 50 mcg dose 2020 CHELE, () Not Given COVID-19, mRNA, LNP-S, PF, 100 mcg or 50 mcg dose DoD COVID-19, mRNA, LNP-S, PF, 100 mcg or 50 mcg dose 2020 [employer]. (MOD) Not Given COVID-19, mRNA, LNP-S, PF, 100 mcg or [address] [facility] PNEUMOCOCCAL CONJUGATE PCV 13 2014 133 complet ed [facility] INFLUENZA, UNSPECIFIED FORMULATION 2013 88 complet ed [facility] INFLUENZA, UNSPECIFIED FORMULATION 2012 88 complet ed [facility] INFLUENZA, UNSPECIFIED FORMULATION 2012 88 complet ed [facility] ZOSTER LIVE 2012 121 complet ed [facility] DIVISIO N PNEUMOCOCCAL, UNSPECIFIED FORMULATION 2012 109 complet ed [facility] TDAP 2011 115 complet ed [facility] DIVISIO N Encounters Combined list of: 1) Encounters from [facility] facilities going back up to thelast 18 months. 2) Encounters from the Department of Defense facilities going back up to 280 months. Location Location Details Encounter Type Encounter Number Reason For Visit Attending Provider ADM Date DC Date Status Disposition Source [address] [place] [address] [facility] OUTPATIENT [id number] stop smoking CYNDY LINARES Shawn 12/15 Released w/o Limitations [address] [place] [address])(F amily Practic e Non-GME FHI1) [address] [place] [address])([facility] Practice Non-GME FHI1) OUTPATIENT [id number] tobacco cessati on class #1 MANUELCYNDY KING P 12/16 Released w/o Limitations [address] [place] [address] Amando [facility])(F amily Practic e Non-GME FHI1) [address] [place] [address] Amando [facility])([facility] Non-GME FHI1) OUTPATIENT [id number] tobacco cessati on NAOMI DC 12/30 Released w/o Limitations [address] [place] [address] Amando [facility])(F amily Practic e Non-GME FHI1) [address] [place] [address])([facility] [employer] [facility] Tm) OUTPATIENT [id number] tobacco cessati on class #5 HAYDEN CRONIN 01/14 Released w/o Limitations [address] [place] [address] [facility])(S cott [facility] Tm) [address] [place] [address] [facility])([facility] Practice Non-GME FHI1) OUTPATIENT [id number] tobacco cessati on follow- up CYNDY LINARES 02/03 Released w/o Limitations [address] [place] [address] [facility])(F amily Practic e Non-GME FHI1) [address] [place] [address] [facility] Practice Non-GME FHI1) OUTPATIENT [id number] fol PHA CYNDY LINARES P 05/30 Released w/o Limitations [address] [place] [address] [facility])(F amily Practic e Non-GME FHI1) [address] [place], [place] [address]B [facility])([facility] Practice Non-GME FHI1) OUTPATIENT [id number] f/u to labs/EK G needed/ physica l CYNDY LINARES P 06/13 Released w/o Limitations [address] [place] [address] [facility])(F amily Practic e Non-GME FHI1) [address] [place] [address] [facility])([facility]co [facility] FAMRES Tm Blue) TELE CONSULT [id number] Labs for C-Scope VERONICA JUAREZ 06/[address] [place] [address] [facility])([facility] FAMRES Tm Blue) [address] [place] [address])([facility] Non-GME FHI2) OUTPATIENT [id number] sore throat KULWINDER MACHUCA 06/22 Released w/o Limitations [address] [place] [address] [facility])(F amily Practic e Non-GME FHI2) [address] [place] [address] [facility])([facility] Practice Non-GME FHI1) TELE CONSULT [id number] call back - SD Siddiqui am P 06/[address] [place] [address] [facility])(F amily Practic e Non-GME FHI1) [address] [place] [address] [facility])([facility] Practice Non-GME FHI2) OUTPATIENT [id number] sore throat KULWINDER MACHUCA 06/27 Released w/o Limitations [address] [place] [address] Amando [facility] ([facility])(F amily Practic e Non-GME FHI2) [address] [place] [address] Amando [facility] ([facility]co tt [facility] FAMRES Tm Blue) OUTPATIENT [id number] visit for: screeni ng maligna nt neoplas m colon CHANDANA RAMESH Glaser 07/26 Released w/o Limitations [address] [place] [address] Amando [facility] ([facility]S cott [facility] Tm Blue) [address] [place] [address] Amando [facility] ([facility]Sco tt [facility] FAMRES Tm Blue) TELE CONSULT [id number] Colonos ocpy results RAMESH ELLINGTON 08/[address] [place] [address] Amando [facility] ([facility]S cott [facility] FAMRES Tm Blue) [address] [place] [address] Amando [facility] ([facility])(Gen eral Surgery) OUTPATIENT [id number] 3cm colonic polyp BARB PENN 08/17 Released w/o Limitations [address] [place] [address] Amando [facility] ([facility])(G eneral Surgery ) [address] [place] [address] [facility] [place] [facility] Non-GME FHI1) TELE CONSULT [id number] call back - SONNY Andino am 09/[address] [place] [address] Amando [facility] ([facility])(F amily Practic e Non-GME FHI1) [address] [place] [address] Amando [facility] ([facility])(Gen eral Surgery) OUTPATIENT [id number] f/u-per zaynab Penn KENNETH D 09/14 Released w/o Limitations [address] [place] [address] Amando [facility] ([facility])(G eneral Surgery ) [address] [place] [address] Amando [facility] ([facility]Gen eral Surgery) OUTPATIENT [id number] BARB PENN 09/20 Released w/o Limitations [address] [place] [address] Amando [facility] ([facility]G eneral Surgery ) [address] [place] [address] Amando [facility] ([facility])(Opt ometry) OUTPATIENT [id number] routine eye exam JUDSON BACON 09/21 Released w/o Limitations [address] [place] [address] Amando [facility] ([facility])(O ptometr y) [address] [place] [address] [facility] [place] [facility] Non-GME FHI2) TELE CONSULT [id number] call back-pa THERESA [place] am 10/[address] [place] [address])(F amily Practic e Non-GME FHI2) [address] [place] [address])(Gen eral Surgery) OUTPATIENT [id number] zaynab gonzalez KENNETH D 10/27 Released w/o Limitations [address] [place] [address])(G eneral Surgery ) [address] [place] [address])(Gen eral Surgery) OUTPATIENT [id number] zaynab gonzalez KENNETH D 01/15 Released w/o Limitations [address] [place] [address])(G eneral Surgery ) [address] [place] [address])([facility] [place] [facility] Non-GME FHI2) TELE CONSULT [id number] jerri ponce -- [place] Siddiqui am 01/[address] [place] [address])(F amily Practic e Non-GME FHI2) [address] [place] [address])([facility] [place] [facility] Non-GME FHI1) OUTPATIENT [id number] follow- up colon CA CYNDY LINARES 02/06 Released w/o Limitations [address] [place] [address])(F amily Practic e Non-GME FHI1) [address] [place] [address])([facility] [place] [facility] Non-GME FHI1) TELE CONSULT [id number] lab results . NOLA SWIFT 03/[address] [place] [address])(F amily Practic e Non-GME FHI1) Procedures Combined list of: 1) Procedures from Department of Veterans Affairs facilities going back up to thelast 18 months, not all VA non-surgical procedures are included; 2) All procedures from the Department of Defense facilities. Procedure Procedure Type Code Date Perfomer Comments Sourc e TELE ASSESS & MGT SRV PROV QUAL NONPHYS HLTH CARE PRO TO EST PAT,PARENT,GUARD NOT ORIG REL ASSESS & MGT SRV PROV W/IN PREV 7 DAYS NOR LEAD ASSESS & MGT SRV/PX W/IN NXT 24H/SOON APT; 21-30 MIN MED DIS 8 DoD POSTOPERATIVE FOLLOW-UP VISIT, NORMALLY INCLUDED IN THE SURGICAL PACKAGE, INDICATE THAT EVALUATION & MANAGEMENT SERVICE WAS PERFORMED DURING A POSTOPERATIVE PERIOD REASON RELATED ORIGINAL PROCEDURE 8 [facility] DETERMINATION OF REFRACTIVE STATE 8 [facility] COLONOSCOPY, FLEXIBLE; WITH BIOPSY, SINGLE OR MULTIPLE 7 [facility] Non-Physician Phone Call To Pt/Provider Lengthy (21-30 min) Non-Physician Phone Call To Pt/Provider Lengthy (21-30 min) [id number] [facility] Determination Of Refractive State Determination Of Refractive State [id number] [facility] Visual Serrano Test Intermediate Examination Visual Serrano Test Intermediate Examination [id number] [facility] Ophthalmological New Patient Start Comprehensive Care Ophthalmological New Patient Start Comprehensive Care [id number] [facility] Complete Colonoscopy [address] [facility] Diagnostic Colonoscopy Fiberoptic Forceps Biopsy [address] [facility] Social History Combined list of available smoking, tobacco, and other social history from Department of Defense and Veterans Affairs facilities. Social History Type Response Date Comment Sour e Tobacco smoking status NHIS QUIT TOBACCO >7 YEARS AGO 04/15/2015 [facility] History of tobacco use QUIT TOBACCO >7 Y EARS AGO 03/19/2014 [facility] History of tobacco use QUIT TOBACCO >7 Y EARS AGO 04/06/2013 [facility] This section is an empty social history section. [facility]
[2024-10-04 16:41] LABS: Albumin Level 4.2 g/dL (3.5-5.1); Anion Gap 9 mmol/L (4-12); Blood Urea Nitrogen 18 mg/dL (9-20); Calcium 9.4 mg/dL (8.4-10.2); Carbon Dioxide 30 mmol/L (22-30); Chloride 101 mmol/L (98-107); Estimated Glomerular Filt Rate 51; Glucose 104 mg/dL (65-110); Phosphorus 3.4 mg/dL (2.5-4.5); Potassium 3.7 mmol/L (3.4-5.0); Sodium 140 mmol/L (137-145)
[2024-10-04 16:49] LABS: Creatinine Urine 60.9 mg/dL; Total Protein Urine Random 11 mg/dL; Ur Ttl Prot Creatinine Ratio 0.18 mg/mg (0-0.20)
== END 2024-10-04 15:48 | disposition home or self-care (01) ==
LOC: ANHLAB 15:48
PROVIDERS: PCP Family Medicine; Visit Provider Internal Medicine Nephrology
DX: N18.31 Chronic kidney disease, stage 3a (principal); Z90.5 Acquired absence of kidney
CPT/HCPCS: 36415; 80069; 82570; 84156

== ENCOUNTER 2024-10-08 19:54 | Inpatient (IN) | payer MEDICARE, OTHER, SELFPAY ==
[2024-10-08] VITALS (9 sets, daily range): BP systolic 145–179; BP diastolic 64–108; PULSE 45–102; RESP 18–24; TEMP 36.8; O2SAT 96–97
--- NOTE | ~2024-10-08 | XR_ITS ---
CHEST RADIOGRAPH, PA AND LATERAL CLINICAL HISTORY: weakness . COMPARISON: 07/29/2023 TECHNIQUE: PA and lateral views of the chest. FINDINGS The cardiomediastinal silhouette is enlarged, unchanged. Spinal stimulator leads project over the lower cardiomediastinal silhouette. The lungs are clear. IMPRESSION: No focal infiltrate or effusion. Reviewed, dictated and finalized at location A. AR CARE TECHNICIAN
--- NOTE | ~2024-10-08 | US_ITS ---
EXAMINATION: US venous doppler [facility] DATE: 10/09/2024 10:24 INDICATION: Lower limb swelling TECHNIQUE: Grayscale ultrasound images without and with compression and Doppler ultrasound images of the bilateral lower extremity veins were obtained. COMPARISON: None. FINDINGS: The visualized portions of right common femoral vein, profunda (deep) femoral vein, femoral vein, pop liteal vein, posterior tibial veins, peroneal veins and greater saphenous vein outflow are patent. The visualized portions of left common femoral vein, profunda femoral vein, femoral vein, popliteal v ein, posterior tibial veins, peroneal veins and greater saphenous vein outflow are patent. IMPRESSION: 1. No deep venous thrombosis in either lower limb. Reviewed, dictated and finalized at location A. KLAYER
--- NOTE | ~2024-10-08 | CT_ITS ---
History: Altered mental status PROCEDURE: CT head without contrast. COMPARISON: 07/29/2023 TECHNIQUE: Axial imaging of the head performed from the skull base to the vertex without IV contrast. Sagittal a nd coronal reformations obtained. DLP: 757 mGy-cm FINDINGS: The ventricles are enlarged. The dilatation of the ventricles is proportional to the degree of sulcal prominence, not uncommon in the senescent brain. Decreased attenuation is identified within the periventricular white matter, likely secondary to micr ovascular ischemic disease, in a patient of this age. There is no mass, mass effect or midline shift. There is no abnormal extra-axial fluid collection or intracranial hemorrhage. Visualized paranasal sinuses are clear. The mastoid air cells are well aerated. No acute displaced fractures within the overlying cranium. Impression: No acute intracranial hemorrhage or suspicious mass effect. Reviewed, dictated and finalized at location A. T ROLLER PICKER Impression: No acute intracranial hemorrhage or suspicious mass effect.
--- NOTE | 2024-10-08 20:01 | ECG_ITS ---
Test Date: 2024-10-08 20:05:24 Measurements Intervals [place] Rate: 90 P: 0 LA: 0 QRS: -9 QRSD: 133 T: 35 QT: 347 QTc: 426 Interpretive Statements ATRIAL FIBRILLATION RIGHT BUNDLE BRANCH BLOCK BASELINE ARTIFACT- I, III, AVR, AVL, AVF ABNORMAL ECG No previous ECG available for comparison Electronically Signed On 10-09-2024 06:22:10 ANODIC OPERATOR by Luke Lees D.O.
[2024-10-08 20:13] LABS: Basophils Absolute Auto 0.1 K/mm3 (0.0-0.1); Basophils Percent Auto 0.9 % (0.2-1.2); Eosinophils Percent Auto 0.3 % (0-4.4); Hematocrit 39.1 % (42.0-52.0); Immature Granulocyte Absolute 0.05 K/mm3 (0.00-0.031); Immature Granulocyte Percent A 0.5 % (0-0.5); Lymphocytes Absolute Auto 1.48 K/mm3 (0.9-3.2); Lymphocytes Percent Auto 14.3 % (18.3-44.2); Mean Corpuscular HGB Conc 30.7 g/dl (32-36); Mean Corpuscular Hemoglobin 25.9 pg (26-34); Mean Corpuscular Volume 84.3 fl (80-100); Mean Platelet Volume 9.6 fl (7.4-10.4); Monocytes Absolute Auto 1.3 K/mm3 (0.1-0.6); Monocytes Percent Auto 12.2 % (2.6-8.5); Neutrophils Absolute Auto 7.5 K/mm3 (1.3-6.7); Neutrophils Percent Auto 71.8 % (45.5-73.1); Platelet Count Result 253 k/mm3 (150-375); Red Blood Count 4.64 M/mm3 (4.6-6.20); Red Cell Distribution Width 14.9 % (11.5-14.5); White Blood Count 10.4 K/mm3 (4.5-10.0)
--- NOTE | 2024-10-08 20:21 | ED_ITS ---
HPI - Weakness General Chief complaint: Weakness Stated complaint: weakness since this afternoon Time Seen by Provider: 10/08/24 20:14 Source: patient and family Mode of arrival: EMS Limitations: no limitations History of Present Illness HPI Narrative: Patient presents with report of generalized weakness since this afternoon. He has been having a dry cough for a few days. He initially denies any fevers but his daughter with whom he lives states that he had a fever yesterday and earlier today. It was initially reported that patient did not have a history of atrial fibrillation however he now reports he does and he is on amiodarone as well as apixaban for this and has been taking this regularly as prescribed. He is also on Lasix for chronic swelling in his lower extremities and taking this medication as well; he does state that he has lower extremity edema currently. He has a history of COPD and has been feeling more short of breath. Denies any chest pain. He was having difficulty standing due to his weakness. He denies any unilateral symptoms. He is a former smoker but quit 15 years ago by using Chantix. He denies any nausea or vomiting. No changes in his bowel movement. His daughter states that he had increasing confusion as he seemed confused about how to get out of the chair but she denies any slurred speech at the time. Denies any dizziness or lightheadedness. Related Data Home Medications ?Medication ?Instructions ?Recorded ?Confirmed ?Last Taken ?Type ascorbic acid (vitamin C) 1,000 mg 1,000 mg PO DAILY 07/21/21 10/09/24 10/08/24 History tablet furosemide 20 mg tablet (Lasix) 20 mg PO PRN PRN Edema 07/21/21 10/09/24 10/02/24 History albuterol sulfate 90 mcg/actuation 1 - 2 inh inhalation Q4-6H PRN 12/29/23 10/09/24 12/29/23 History aerosol inhaler sob/wheezing docusate sodium 100 mg capsule 100 mg PO .prn 06/08/24 10/09/24 Unknown History (Colace) amiodarone 200 mg tablet 100 mg PO DAILY 06/12/24 10/09/24 Unknown History cholecalciferol (vitamin D3) 125 125 mcg PO DAILY 06/12/24 10/09/24 10/08/24 History mcg (5,000 unit) tablet cyclosporine 0.05 % eye drops in a 1 drp EACH EYE BID 06/12/24 10/09/24 10/08/24 History dropperette glucosamine sulf dipot 2 cap PO DAILY 06/12/24 10/09/24 10/08/24 History chlr,msm,chond 550 mg-C 30 mg-fausto 1 mg capsule (Glucosamine Chondroitin) melatonin 10 mg capsule 10 mg PO HS PRN Insomnia 06/12/24 10/09/24 10/07/24 History turmeric 400 mg capsule 400 mg PO DAILY 06/12/24 10/09/24 10/08/24 History Allergies Allergy/AdvReac Type Severity Reaction Status Date / Time morphine Allergy Severe Confusion/Severe Verified 10/09/24 09:36 agitation/AGRESSIVE PMFSH Past Medical History Medical History Lymphedema Constipation Oropharyngeal dysphagia Chronic kidney disease Impaired fasting glucose Obstructive sleep apnea on CPAP Chronic obstructive pulmonary disease Benign prostatic hyperplasia CKD (chronic kidney disease) stage 3, GFR 30-59 ml/min Gross hematuria Obesity History of tobacco abuse COPD (chronic obstructive pulmonary disease) MELANIE on CPAP Right leg DVT Hearing loss Surgical History Surgical History Hx of colectomy Hx of transurethral resection of prostate H/O left nephrectomy History of bilateral hip arthroplasty History of left nephrectomy History of partial colectomy Sacral nerve stimulator present History of appendectomy Family History Family History Sibling Malignant neoplasm of prostate Family history of lung cancer Family history of pancreatic cancer Hypertension Father Chronic obstructive pulmonary disease Social History Social History Social History: Surrogate medical decision maker: Roxana Quintanilla, daughter. Code status: Full code. Smoking packs per day: 2 Smoking cigarettes per day: 40.0 Years smoked: 40 Smoking pack-years: 80.00 Smoking status: Former smoker Tobacco type: cigarettes Second hand tobacco smoke exposure: Yes Alcohol intake: current Drinks per week: 4 Alcohol use details: 5-6 BEERS/WEEK Substance use: never Substance use type: does not use Do You Feel Safe in your Home?: Yes Lack of Transportation: No Lack of Food: Never True Current Housing: I Have Housing Concerned About Future Housing: No Difficulty Paying Gas/Electric Bills: No Difficulty Paying for Meds: No Currently Unemployed: No Education: Master's Degree or Higher Difficulty w/ Childcare or Family Care: No Living arrangements: with family Additional living arrangements comments: DAUGHTER AND MIN Occupation/Education: retired Additional occupation/education comments: 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 Gender identity (if verbalized by the patient): Male Sexual Orientation (if Verbalized by the Patient): Straight or Heterosexual Spiritual care concerns: No Exam 2 Narrative: GENERAL: Well-appearing, well-nourished, and in no acute distress. HEAD: Normocephalic, atraumatic. EYES: Non injected, non icteric ENT: Nares clear, no rhinorrhea or epistaxis. NECK: Supple. CHEST: Speaking in full sentences. No respiratory distress. Lungs clear to auscultation bilaterally without appreciable crackles, wheezes. HEART: IRRegularly irregular rate and rhythm, rate controlled . ABDOMEN: Obese but Soft, nondistended. EXTREMITIES: Normal range of motion. 2-3+ bilateral lower extremity edema. SKIN: Warm, dry, no rash. NEURO: No focal deficits. Alert and oriented x3. PSYCH: Normal mood and affect. Course Vital Signs Vital signs: Vital Signs Temperature 98.3 F 10/08/24 19:55 Pulse Rate 98 10/08/24 19:55 Respiratory Rate 20 10/08/24 19:55 Blood Pressure 179/97 H 10/08/24 19:55 Pulse Oximetry 96 10/08/24 19:55 Oxygen Delivery Room Air 10/08/24 19:55 Temperature 98.9 F 10/09/24 14:00 Pulse Rate 65 10/09/24 16:00 Respiratory Rate 18 10/09/24 14:00 Blood Pressure 109/79 10/09/24 14:00 Pulse Oximetry 98 10/09/24 14:00 Oxygen Delivery Room Air 10/09/24 02:31 MDM - Weakness MDM Narrative Medical decision making narrative: 79 yo presents with generalized weakness. He has had a dry cough and shortness of breath. Family found him to be transiently confused about how to get out of the chair but without unilateral symptoms/slurred speech. In the emergency department is afebrile with vital signs notable for hypertension. He has a very mild leukocytosis. He also has a normocytic anemia which is stable. Will not obtain a D-dimer as patient is already anticoagulated on Eliquis and is compliant with this medication. He does test positive for COVID. BNP is mildly elevated. He is already on diuretic but will give a 1 time dose IV since he is having weakness and lower extremity edema and it is possible that the degree of swelling is making it more difficult to ambulate. Heart rate dropped during orthostatic testing from supine to seated; blood pressure was okay. However, it is reported that he was very symptomatic during this testing as well as with another attempt to help him stand, he nearly fell. Given this, I am concerned about his ability to be discharged home safely. His daughter with whom he lives is also very concerned about this, especially given his weight and the fact that he is on Eliquis and if he were to fall. Although he was initially hoping he could go home, he states he is agreeable to this. He confirms that in the event of cardiopulmonary arrest he would want to be full code which would include chest compressions, defibrillation as needed, and intubation/mechanical ventilation, stating: You get one chance to bring me back. Daughter at bedside in agreement. Discussed patient with on-call hospitalist Dr. Vernon at 23:45. Patient will be med surg. PT/OT evaluation ordered. Differential Diagnosis Differential diagnosis: Likely acute myocardial infarction, anemia, hypoglycemia, hypothyroidism, rhabdomyolysis, sepsis, dehydration and other (Acute viral syndrome/influenza/COVID, CHF exacerbation, pneumonia, urinary tract infection, less concern for TIA/CVA) Lab Data Attestation: I reviewed the patient's lab results. 10/09/24 09:53 10/09/24 09:52 Labs: Lab Results 10/08/24 10/08/24 10/08/24 Range/Units 20:03 20:04 20:59 WBC 10.4 H (4.5-10.0) K/mm3 RBC 4.64 (4.6-6.20) M/mm3 Hgb 12.0 L (14.0-18.0) g/dL Hct 39.1 L (42.0-52.0) % MCV 84.3 (80-100) fl MCH 25.9 L (26-34) pg MCHC 30.7 L (32-36) g/dl RDW 14.9 H (11.5-14.5) % Plt Count 253 (150-375) k/mm3 MPV 9.6 (7.4-10.4) fl Immature Gran % (Auto) 0.5 (0-0.5) % Neut % (Auto) 71.8 (45.5-73.1) % Lymph % (Auto) 14.3 L (18.3-44.2) % [place] % (Auto) 12.2 H (2.6-8.5) % Eos % (Auto) 0.3 (0-4.4) % Baso % (Auto) 0.9 (0.2-1.2) % Lymph # (Auto) 1.48 (0.9-3.2) K/mm3 [place] # (Auto) 1.3 H (0.1-0.6) K/mm3 Eos # (Auto) 0.0 (0-0.3) K/mm3 Baso # (Auto) 0.1 (0.0-0.1) K/mm3 Abs Immat Gran (auto) 0.05 H (0.00-0.031) K/mm3 Absolute Neuts (auto) 7.5 H (1.3-6.7) K/mm3 Absolute Nucleated RBC 0.000 (0.0-0.012) K/mm3 Nucleated RBC % 0.0 (0.0-0.2) % Sodium 136 L (137-145) mmol/L Potassium 3.8 (3.4-5.0) mmol/L Chloride 98 (98-107) mmol/L Carbon Dioxide 30 (22-30) mmol/L Anion Gap 8 (4-12) mmol/L BUN 12 D (9-20) mg/dL Creatinine 1.24 (0.7-1.3) mg/dL Estim Creat Clear Calc 60 ml/min Estimated GFR 56 L (59 - ) Glucose 117 H (65-110) mg/dL Calcium 8.9 (8.4-10.2) mg/dL Total Bilirubin 0.5 (0.2-1.3) mg/dL AST 23 (17-59) U/L ALT 18 (6-50) U/L Alkaline Phosphatase 88 (38-126) U/L Ammonia 15 (9-30) umol/L Total Creatine Kinase 56 (55-170) U/L Troponin I < 0.012 (0.000-0.034) ng/mL NT-Pro-B Natriuret Pep 1010 H (19.9-100) pg/mL Total Protein 7.0 (6.3-8.2) g/dL Albumin 4.1 (3.5-5.1) g/dL TSH 2.380 (0.465-4.680) uIU/mL Urine Color (Yellow) Urine Appearance (Clear) Urine pH (5.0-9.0) Ur Specific [place] (1.001-1.035) Urine Protein (Negative) mg/dL Urine Glucose (UA) (Negative) mg/dL Urine Ketones (Negative) mg/dL Ur Blood (Man) (Negative) Urine Nitrate (Negative) Urine Bilirubin (Negative) Urine Urobilinogen (<2.0) mg/dL Leukocyte Esterase Rfl (Negative) CAPRICE/UL Urine RBC (0-2) /hpf Urine WBC (0-3) /hpf Ur Squamous Epith Cells (Few) /hpf Urine Bacteria /hpf Urine Casts Salicylates < 1.0 L (2-20) mg/dL Acetaminophen < 10 L (10-30) ug/mL Ethyl Alcohol < 10 (<10) mg/dL Influenza A (RT-PCR) Negative (Negative) Influenza B (RT-PCR) Negative (Negative) RSV (RT-PCR) Negative (Negative) SARS-CoV-2 RNA (RT-PCR) Positive A (Negative) 10/08/24 10/09/24 10/09/24 Range/Units 23:03 09:52 09:53 WBC 10.5 H (4.5-10.0) K/mm3 RBC 4.54 L (4.6-6.20) M/mm3 Hgb 11.7 L (14.0-18.0) g/dL Hct 38.4 L (42.0-52.0) % MCV 84.6 (80-100) fl MCH 25.8 L (26-34) pg MCHC 30.5 L (32-36) g/dl RDW 15.0 H (11.5-14.5) % Plt Count 264 (150-375) k/mm3 MPV 9.6 (7.4-10.4) fl Immature Gran % (Auto) 0.5 (0-0.5) % Neut % (Auto) 63.7 (45.5-73.1) % Lymph % (Auto) 18.7 (18.3-44.2) % [place] % (Auto) 16.3 H (2.6-8.5) % Eos % (Auto) 0.1 (0-4.4) % Baso % (Auto) 0.7 (0.2-1.2) % Lymph # (Auto) 1.95 (0.9-3.2) K/mm3 [place] # (Auto) 1.7 H (0.1-0.6) K/mm3 Eos # (Auto) 0.0 (0-0.3) K/mm3 Baso # (Auto) 0.1 (0.0-0.1) K/mm3 Abs Immat Gran (auto) 0.05 H (0.00-0.031) K/mm3 Absolute Neuts (auto) 6.7 (1.3-6.7) K/mm3 Absolute Nucleated RBC 0.000 (0.0-0.012) K/mm3 Nucleated RBC % 0.0 (0.0-0.2) % Sodium 136 L (137-145) mmol/L Potassium 3.6 (3.4-5.0) mmol/L Chloride 97 L (98-107) mmol/L Carbon Dioxide 27 (22-30) mmol/L Anion Gap 12 (4-12) mmol/L BUN 12 (9-20) mg/dL Creatinine 1.31 H (0.7-1.3) mg/dL Estim Creat Clear Calc 58 ml/min Estimated GFR 53 L (59 - ) Glucose 108 (65-110) mg/dL Calcium 8.6 (8.4-10.2) mg/dL Total Bilirubin 0.5 (0.2-1.3) mg/dL AST 18 (17-59) U/L ALT 19 (6-50) U/L Alkaline Phosphatase 75 (38-126) U/L Ammonia (9-30) umol/L Total Creatine Kinase (55-170) U/L Troponin I (0.000-0.034) ng/mL NT-Pro-B Natriuret Pep (19.9-100) pg/mL Total Protein 7.0 (6.3-8.2) g/dL Albumin 3.9 (3.5-5.1) g/dL TSH (0.465-4.680) uIU/mL Urine Color Yellow (Yellow) Urine Appearance Clear (Clear) Urine pH 6.5 (5.0-9.0) Ur Specific [place] 1.017 (1.001-1.035) Urine Protein 1+ H (Negative) mg/dL Urine Glucose (UA) Negative (Negative) mg/dL Urine Ketones Negative (Negative) mg/dL Ur Blood (Man) Negative (Negative) Urine Nitrate Negative (Negative) Urine Bilirubin Negative (Negative) Urine Urobilinogen 1.0 (<2.0) mg/dL Leukocyte Esterase Rfl Negative (Negative) CAPRICE/UL Urine RBC 3-5 H (0-2) /hpf Urine WBC 0-5 (0-3) /hpf Ur Squamous Epith Cells None seen (Few) /hpf Urine Bacteria None seen /hpf Urine Casts 0-2 Salicylates (2-20) mg/dL Acetaminophen (10-30) ug/mL Ethyl Alcohol (<10) mg/dL Influenza A (RT-PCR) (Negative) Influenza B (RT-PCR) (Negative) RSV (RT-PCR) (Negative) SARS-CoV-2 RNA (RT-PCR) (Negative) Imaging Data Radiologist's impression: Impressions Chest X-Ray 10/08/24 20:34 IMPRESSION: No focal infiltrate or effusion. Head CT 10/08/24 21:51 Impression: No acute intracranial hemorrhage or suspicious mass effect. Venous Doppler Study 10/09/24 10:28 IMPRESSION: 1. No deep venous thrombosis in either lower limb. ECG Data EKG #1: Attestation: I personally reviewed and interpreted this ECG as follows: ECG completion date: 10/08/24 ECG completion time: 20:05 Interpretation: Atrial fibrillation at a rate of 90 beats per minute. QRS 133. QT/QTC 347/395. RBBB given QRS greater [id number]; RSR' M-shaped pattern in V1; wide, slurred S wave in lateral leads (I, aVL, V5-6). T-wave inversions in V2 and V3, the latter possibly due to lead placement. ST depressions in V5 and V6 verses sharp upslurring. Discharge Plan Discharge Clinical Impression: Generalized weakness, Leukocytosis, Anemia, COVID, Elevated brain natriuretic peptide (BNP) level, Microscopic hematuria, Edema of both lower legs Patient Disposition: Still a Patient Condition: Stable
[2024-10-08 20:23] LABS: Alanine Aminotransferase 18 U/L (6-50); Albumin Level 4.1 g/dL (3.5-5.1); Alkaline Phosphatase 88 U/L (38-126); Anion Gap 8 mmol/L (4-12); Aspartate Amino Transferase 23 U/L (17-59); Bilirubin,Total 0.5 mg/dL (0.2-1.3); Blood Urea Nitrogen 12 mg/dL (9-20); Calcium 8.9 mg/dL (8.4-10.2); Carbon Dioxide 30 mmol/L (22-30); Chloride 98 mmol/L (98-107); Estimated CRCL calculation 60 ml/min; Estimated Glomerular Filt Rate 56; Glucose 117 mg/dL (65-110); Potassium 3.8 mmol/L (3.4-5.0); Sodium 136 mmol/L (137-145)
--- OUTSIDE RECORDS SUMMARY | 2024-10-08 20:42 | XMS_ITS | Clinical Summary ---
Author Organization [facility] Address [address] [place] [id number] Care Team Providers Care Vegetable Thinner Name Role Phone Unavailable Primary Care Provider [...]
--- OUTSIDE RECORDS SUMMARY | 2024-10-08 20:42 | XMS_ITS | Clinical Summary ---
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 Name Role Phone Aj Tejeda MD Primary Care Provider Allergies Active Allergy Reactions Criticality Noted Date Comments Morphine Mental status changes,Other (See comments),Delusions Medium 04/06/2013 Reaction: Other Opioids - Morphine Analogues Mental status changes,Hallucinations ,Agitation Medium Opioids-Meperidine And Related Delusions Medium 04/06/2013 Medications ascorbic acid (vitamin C) 1,000 mg tablet take 1 by Oral route once 0 0 7 Active finasteride (PROSCAR) 5 mg tablet Take 1 tablet (5 mg total) by mouth regional facilities manager before breakfast Active multivitamin tablet Take 1 tablet by mouth regional facilities manager before breakfast Active tamsulosin (FLOMAX) 0.4 mg extended release capsule Take 1 capsule (0.4 mg total) by mouth nightly Active gabapentin (NEURONTIN) 100 mg capsule Take 1 capsule (100 mg total) by mouth nightly 0 Active albuterol HFA (PROVENTIL HFA,VENTOLIN HFA,PROAIR HFA) 90 mcg/actuation inhaler INHALE 1 TO 2 PUFFS BY MOUTH EVERY 4 TO 6 HOURS NEEDED FOR SHORTNESS OF BREATH OR WHEEZING 2 Active fenofibrate (TRICOR) 54 mg tablet Take 1 tablet (54 mg total) by mouth daily Active potassium chloride ER 10 mEq CR tablet Take 1 tablet/capsule (10 mEq total) by mouth daily 3 Active omega 2-ozu-rxk-fish oil (Fish OiL) 1,000 mg (120 mg-180 mg) capsule Take 1 capsule (1,000 mg total) by mouth 2 (two) times a day 3 Active cycloSPORINE (RESTASIS) 0.05 % ophthalmic emulsion Administer 1 drop into both eyes every 12 (twelve) hours 4 Active Stiolto Respimat 2.5-2.5 mcg/actuation inhaler 3 Active furosemide (LASIX) 20 mg tabletIndicatio ns:Bilateral lower extremity edema TAKE 1 TABLET DAILY NEEDED FOR SWELLING 90 tablet 2 4 Active amiodarone (PACERONE) 100 mg tablet Take 1 tablet (100 mg total) by mouth daily Active Eliquis 5 mg tablet TAKE 1 TABLET TWICE A DAY 90 tablet 7 5 Active Active Problems Problem Noted Date Diagnosed Date Chronic anticoagulation 05/30/2024 Atrial fibrillation ([facility]) 04/21/2024 A-fib ([facility]) 02/21/2024 Persistent atrial fibrillation 08/26/2023 Morbid [...] Cephalalgia 05/26/2017 Neuralgia 05/25/2017 No diagnosis on Kathleen I 05/04/2017 Memory impairment 04/22/2017 Degeneration of [...] on file Legal 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 Minimize further functional decline 2. Maximize quality of life 3. Control pain Strategies: - Activity/exercise program recommendation - Conservative stepwise pain medicine strategy with multi-disciplinary approach - Recommend healthy lifestyle strategies and compensatory methods as needed Medical Devices Implanted Type Area Video Clerk Device Identifier Shelf Expiration Date Model / Serial / Lot [employer] Proclaim Elite 4.95cmx5.55cm 5 Implantable Pulse Tonic 3660 Contrlsys - [id number] Implanted:Qty: 1 on 05/14/2022 by Shawn Boyce MD PhD at [facility] Other - see comments N/A: Back [employer] 3660 CONTRLSYS / / Description:Pulse generator Spinal Cord Stimulator-06/2017 Implanted:07/30 by Lamonte Donahue MD (Quantity not on file) Spinal Cord Stimulator Back [employer]u [employer]ang[employer] Alejandra Description:Model name lead1 [id number] Serial [id number] Implanted date 08-09-17 NEVRO SPINAL CORD STIMULATOR Per the vendor, this patients device exceeds the allowed impedence to safely have an MRI without surgical replacement Hip Bilater al: Hip Description:Total hip replac ment x2 [employer] [facility] Vascade Mvp 6-12fr Venous Closure [id number] - [id number] Implanted:Qty: 1 on 02/21/2024 by Abhilash Smith MD at [facility] [employer] [facility] 11/07/2025 800-612C-10 U / / [id number] [employer] Vascade Mvp 6-12fr Venous Closure [id number] - [id number] Implanted:Qty: 1 on 02/21/2024 by Abhilash Smith MD at [facility] 11/07/2025 800-612C-10 U / / [id number] [employer] Vascade Mvp 6-12fr Venous Closure [id number] - [id number] Implanted:Qty: 1 on 02/21/2024 by Abhilash Smith MD at [facility] 11/07/2025 800-612C-10 U / / [id number] Procedures Procedure Name Priority Date/Time Associated [...] was last reviewed 2021. Testing performed by: [facility], [address], [place] [address] Blood 03/28/2024 11:2 5 AM CDT 03/28/2024 12:07 PM CDT us Nereyda Ravi NP LAB BLOOD ORDERABLES Final Res ult BIPIN [id number] [place] [address] * (ABNORMAL) Hemoglobin A1c (02/18/2024 12:22 PM CDT) Hgb A1C 5.9(H) 4.0 - 5.6 % Estimated Average Glucose 123 mg/dL BIPIN PERALTA Comment: The ADA recommends reporting an estimated Average Glucose (eAG) with all Hemoglobin A1c results using the equation derived from a study of 507 normal and diabetic adults. Minority populations were underrepresented and children were not included. (Diabetes Care 31:4685-9394, 2008). The eAG is not equivalent to a fasting glucose. Blood 02/18/2024 12:2 2 PM CDT 02/18/2024 12:22 PM CDT Crystal Harrell REGISTERED NURSE SURGICAL SERVICES LAB BLOOD ORDERABLES Final Res ult BIPIN [id number] [place] [address] * Lipid panel (11/01/2019) SCRIBED Cholesterol, Total 158 <200 EXTERNAL LAB SCRIBED HDL 22 >40 EXTERNAL LAB SCRIBED LDL 82 <100 EXTERNAL LAB SCRIBED Triglycerides 262 <150 EXTERNAL LAB Blood specimen (specimen) Historical Provider LAB BLOOD ORDERABLES Edit ed Result - Final EXTERNAL LAB from Last 3 Months or Most Recently Relevant to Health Maintenance Insurance [employer] MEDICARE FOR [facility] Member Subscriber Plan / Payer ( fective 2018-Present) Name:Jason Daigle Relation to Subscriber:Self Name:Jason Daigle Payer ID:[id number] (NAIC) Type: Address: [place] [id number] MEDICARE MEDICARE [facility] Address: [address] [address] [place] [address] FOR LIFE Advance Directives For more information, please contact: [phone] * Full Code (Latest Code Status on File) Date Activated Date Inactivated Comments 07/14/2018 10:13 AM 07/14/2018 12:31 PM Care Teams Hot Plate Plywood Press Operator Relationship Specialty Start Date End Date Aj Tejeda MD [address] [facility] [address] [place] [address] PCP - General 10/06/18
--- OUTSIDE RECORDS SUMMARY | 2024-10-08 20:42 | XMS_ITS | Continuity of Care Document ---
Author Name [facility] Organization [facility] Care Team Providers Care Fruit Inspector Name Role Phone [facility] Unavailable Unavailable Problems Combined list of problems from Department of Defense and Veterans Affairs facilities. It does not include entries that were removed or entered in error. 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 [facility] personal history of colon cancer Active Condition [facility] personal history of renal cancer Active Condition [facility] flatus Active Condition [facility] astigmatism regular Active Condition 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 DoD dermatochalasis both eyelids Active Condition [facility] cataract senile nuclear Active Condition [facility] presbyopia Active Condition DoD dehiscence of surgical wound Active Condition DoD Aftercare Following Surgery Inactive Condition DoD colon cancer Active Condition DoD sinusitis Active Condition DoD pain during urination (dysuria) Active Condition [facility] visit for: administrative purpose Active Condition DoD upper respiratory infection Active Condition Pt to take medication as Rx, to drink plenty of fluids, to use cough gtts liberally and to follow-up if sx are not getting better in 3-5 days. [facility] Laboratory Studies Active Condition DoD [...] erectile disorder Active Condition previously on viagra [facility] arthritis Active Condition med refill - working well for patient DoD X-Ray Active Condition screening - prior to physical [facility] visit for: screening malignant neoplasm colon Active Condition c-scope #5933. Consult for General Surgery entered. [facility] visit for: laboratory Active Condition DoD arthritis Active Condition [facility] Patient Education Active Condition Di [...] INHALATION, TEVA [place], 8.5 g CANISTER Active [id number] 2023 25.5 Pharmac y Data Transac tion Service Facilit y ASCORBIC ACID 500MG TAB TAKE ONE TABLET BY MOUTH ONCE A DAY ORAL ACTIVE Nadine GREENE 2012 [facility] CEPHALEXIN (CEPHALEXIN MONOHYDRATE ), 500MG, CAPSULE, ORAL, TEVA [place], 500 ea. BOTTLE Active [id number] 4 2023 60 Pharmac y Data Transac tion Service Facilit y CEPHALEXIN (CEPHALEXIN MONOHYDRATE ), 500MG, CAPSULE, ORAL, TEVA [place], 500 ea. BOTTLE Active [id number] 2023 60 Pharmac y Data Transac tion Service Facilit y CYCLOSPORIN E (cyclospori ne), 0.05 %, DROPERETTE, OPHTHALMIC, APOTEX BECKY, 30 ea. VIAL Active [id number] 4 2023 180 Pharmac y Data Transac tion Service Facilit y CYCLOSPORIN E (cyclospori ne), 0.05 %, DROPERETTE, OPHTHALMIC, APOTEX BECKY, 60 ea. VIAL Cancele d [id number] : 2023 0 Pharmac y Data Transac tion Service Facilit y CYCLOSPORIN E (cyclospori ne), 0.05 %, DROPERETTE, OPHTHALMIC, APOTEX BECKY, 60 ea. VIAL Active [id number] 2023 180 Pharmac y Data Transac tion Service Facilit y CYCLOSPORIN E (cyclospori ne), 0.05 %, DROPERETTE, OPHTHALMIC, APOTEX BECKY, 60 ea. VIAL Cancele d [id number] : 2023 0 Pharmac y Data Transac tion Service Facilit y ELIQUIS (APIXABAN), 5 MG, TABLET, ORAL, BMS PRIMARYCARE , 60 ea. BOTTLE Active [id number] 2023 90 Pharmac y Data Transac tion Service Facilit y ELIQUIS (APIXABAN), 5 MG, TABLET, ORAL, BMS PRIMARYCARE , 60 ea. BOTTLE Active [id number] 4 2023 180 Pharmac y Data Transac tion Service Facilit y ELIQUIS (APIXABAN), 5 MG, TABLET, ORAL, BMS PRIMARYCARE , 60 ea. BOTTLE Active [id number] 2023 180 Pharmac y Data Transac tion Service Facilit y ELIQUIS (APIXABAN), 5 MG, TABLET, ORAL, BMS PRIMARYCARE , 60 ea. BOTTLE Cancele d [id number] : 2023 0 Pharmac y Data Transac tion Service Facilit y ELIQUIS (APIXABAN), 5 MG, TABLET, ORAL, BMS PRIMARYCARE , 60 ea. BOTTLE Active [id number] 2022 60 Pharmac y Data Transac tion Service Facilit y FENOFIBRATE (fenofibrat e), 54 MG, TABLET, ORAL, AMNEAL PHARMACE, 90 ea. BOTTLE Active [id number] 4 2023 90 Pharmac y Data Transac tion Service Facilit y FENOFIBRATE (fenofibrat e), 54 MG, TABLET, ORAL, AMNEAL PHARMACE, 90 ea. BOTTLE Active [id number] 2023 90 Pharmac y Data Transac tion Service Facilit y FINASTERIDE (FINASTERID E), 5 MG, TABLET, ORAL, CAMBER PHARMACE, 30 ea. BOTTLE Active [id number] 2023 90 Pharmac y Data Transac tion Service Facilit y FISH OIL 1000MG (500MG DHA/EPA) CAP,ORAL TAKE 1 CAPSULE BY MOUTH TWICE A DAY ORAL ACTIVE Nadine GREENE 2012 [facility] FUROSEMIDE (furosemide ), 20 MG, TABLET, ORAL, AVKARE, 1000 ea. BOTTLE Active [id number] 2023 90 Pharmac y Data Transac tion Service Facilit y FUROSEMIDE (furosemide ), 20 MG, TABLET, ORAL, AVKARE, 1000 ea. BOTTLE Active [id number] 2023 90 Pharmac y Data Transac tion Service Facilit y GABAPENTIN (gabapentin ), 100 MG, CAPSULE, ORAL, [employer] 1000 ea. BOTTLE Active [id number] 2023 90 Pharmac y Data Transac tion Service Facilit y GABAPENTIN (gabapentin ), 100 MG, CAPSULE, ORAL, XLCARE PHARMACE, 500 ea. BOTTLE Active [id number] 4 2023 180 Pharmac y Data Transac tion Service Facilit y GABAPENTIN (gabapentin ), 100 MG, CAPSULE, ORAL, XLCARE PHARMACE, 500 ea. BOTTLE Active [id number] 2023 90 Pharmac y Data Transac tion Service Facilit y GABAPENTIN 300MG CAP TAKE 2 CAPSULES BY MOUTH AT BEDTIME ORAL ACTIVE SRUTHI CIFUENTES 2013 [facility] GLUCOSAMINE CAP/TAB TAKE 1 CAP/TAB BY MOUTH ORAL ACTIVE Nadine GREENE 2012 [facility] HYDROCHLORO THIAZIDE 50MG/TRIAMT ERENE 75MG TAB TAKE ONE TABLET BY MOUTH EVERY MORNING ORAL ACTIVE Nadine GREENE 2012 [facility] LISINOPRIL 20MG TAB TAKE ONE-HALF TABLET BY MOUTH ONCE A DAY ORAL ACTIVE BRIAN JIN 2014 [facility] METOLAZONE 2.5MG TAB TAKE TWO TABLETS BY MOUTH ONCE A DAY ORAL ACTIVE BRIAN JIN 2014 [facility] PANTOPRAZOL E SODIUM (pantoprazo le sodium), 40 MG, TABLET DR, ORAL, [employer] 1000 ea. BOTTLE Active [id number] 2023 90 Pharmac y Data Transac tion Service Facilit y POTASSIUM CHLORIDE (potassium chloride), 10 MEQ, TABLET ER, ORAL, AVKARE, 500 ea. BOTTLE Active [id number] 2023 90 Pharmac y Data Transac tion Service Facilit y POTASSIUM CHLORIDE (potassium chloride), 10 MEQ, TABLET ER, ORAL, AVKARE, 500 ea. BOTTLE Active [id number] 4 2023 90 Pharmac y Data Transac tion Service Facilit y POTASSIUM CHLORIDE (potassium chloride), 10 MEQ, TABLET ER, ORAL, AVKARE, 500 ea. BOTTLE Active [id number] 2023 90 Pharmac y Data Transac tion Service Facilit y STIOLTO RESPIMAT (tiotropium bromide/olo daterol HCl), 2.5-2.5MCG, MIST INHAL, INHALATION, BOEHRINGER ING., 4 g AER W/ADAP Active [id number] 2023 12 Pharmac y Data Transac tion Service Facilit y STIOLTO RESPIMAT (tiotropium bromide/olo daterol HCl), 2.5-2.5MCG, MIST INHAL, INHALATION, BOEHRINGER ING., 4 g AER W/ADAP Active [id number] 2023 12 Pharmac y Data Transac tion Service Facilit y SULFAMETHOX AZOLE-TRIME THOPRIM (SULFAMETHO XAZOLE/TRIM ETHOPRIM), 800-160MG, TABLET, ORAL, AUROBINDO PHARM, 500 ea. BOTTLE Active [id number] 4 2023 14 Pharmac y Data Transac tion Service Facilit y TAMSULOSIN HCL (TAMSULOSIN HCL), 0.4 MG, CAP.SR 24H, ORAL, ZYDUS PHARMACEU, 1000 ea. BOTTLE Active [id number] 4 2023 90 Pharmac y Data Transac tion Service Facilit y TAMSULOSIN HCL (TAMSULOSIN HCL), 0.4 MG, CAP.SR 24H, ORAL, ZYDUS PHARMACEU, 1000 ea. BOTTLE Active [id number] 4 2023 90 Pharmac y Data Transac tion Service Facilit y TERBINAFINE HCL 250MG TAB TAKE ONE TABLET BY MOUTH ONCE A DAY ORAL ACTIVE ANNABELIN GRID D 2014 [facility] TESTOSTERON E CYPIONATE 200MG/ML INJ,1ML (IN OIL) INJECT 400MG/2M L DEEP INTRAMUS CULARLY INTRAM USCULA R ACTIVE ANNABELIN GRID D 2014 [facility] VITAMIN B COMPLEX CAP TAKE 1 CAPSULE BY MOUTH QAM ORAL ACTIVE Nadine GREENE 2012 [facility] Allergies, Adverse Reactions, Alerts Combined list of allergies from Department of [facility] and Veterans Affairs facilities. It does not include entries that were removed or entered in error. Substance Category Reaction Severity Reaction type Status Date Reported Comments Source ANALGESIC(O PIOD) [facility] Drug allergy (disorder) Delirium active 3 [facility] MORPHINE Propensity to adverse reactions to drug (finding) Delirium active [address] [place] [address] DIVISION Immunizations Combined list of available immunizations from the Department of Defense and Veterans Affairs facilities. Immunization Series Date Given Administered By Site Reaction Lot Number CVX Code Drug Open End Spinning Operator Status Comments Source influenza, high-dose, quadrivalent 2021 LUIS MIGUEL, () Not Given influenza , high-dose , quadrival ent DoD COVID-19, mRNA, LNP-S, PF, 100 mcg or 50 mcg dose 2021 LUIS MIGUEL, [employer] (MOD) Not Given COVID-19, mRNA, LNP-S, PF, 100 mcg or 50 mcg dose DoD COVID-19, mRNA, LNP-S, PF, 100 mcg or 50 mcg dose 2020 CHELE, () Not Given COVID-19, mRNA, LNP-S, PF, 100 mcg or 50 mcg dose DoD COVID-19, mRNA, LNP-S, PF, 100 mcg or 50 mcg dose 2020 [employer]. (MOD) Not Given COVID-19, mRNA, LNP-S, PF, 100 mcg or 50 mcg dose [facility] PNEUMOCOCCAL CONJUGATE PCV 13 2014 133 complet ed [facility] INFLUENZA, UNSPECIFIED FORMULATION 2013 88 complet ed [facility] INFLUENZA, UNSPECIFIED FORMULATION 2012 88 complet ed [facility] INFLUENZA, UNSPECIFIED FORMULATION 2012 88 complet ed [facility] N ZOSTER LIVE 2012 121 complet ed [facility] PNEUMOCOCCAL, UNSPECIFIED FORMULATION 2012 109 complet ed [facility] TDAP 2011 115 complet ed [facility] DIVISIO N Encounters Combined list of: 1) Encounters from Department of Veterans Affairs facilities going backup to the last 18 months, not all [place] inpatient encounters are included; 2) Encounters from the Department of Defense facilities going backup to 280 months. Location Location Details Encounter Type Encounter Number Reason For Visit Attending Provider ADM Date DC Date Status Disposition Source [address] [place] [address] Amando Mayda [facility] Non-GME FHI1) OUTPATIENT [id number] stop smoking CYNDY LINARES P 12/15 Released w/o Limitations [address] [place] [address] Amando [facility]F amily Practic e Non-GME FHI1) [address] [place] [address] Amando [facility])([facility] Non-GME FHI1) OUTPATIENT [id number] tobacco cessati on class #1 CYNDY LINARES P 12/16 Released w/o Limitations [address] [place] [address] Amando ROD[facility]ERS [facility]F amily Practic e Non-GME FHI1) [address] [place] [address] Amando Mayda [facility] Non-GME FHI1) OUTPATIENT [id number] tobacco cessati on VANDA NAOMI D 12/30 Released w/o Limitations [address] [place] [address] Amando [facility]OD[facility]ERS [facility]F amily Practic e Non-GME FHI1) [address] [place] [address] Amando [facility])(Sco tt [facility] Tm) OUTPATIENT [id number] tobacco cessati on class #5 HAYDEN CRONIN 01/14 Released w/o Limitations [address] [place] [address] Amando B [facility] cott [facility] Tm) [address] [place] [address] Amando [facility])([facility] Non-GME FHI1) OUTPATIENT [id number] tobacco cessati on follow- up CYNDY LINARES P 02/03 Released w/o Limitations [address] [place] [address] Amando B [facility]F amily Practic e Non-GME FHI1) [address] [place] [address] Amando B [facility] Non-GME FHI1) OUTPATIENT [id number] fol PHA CYNDY LINARES P 05/30 Released w/o Limitations [address] [place] [address] Amando B [facility]F amily Practic e Non-GME FHI1) [address] [place] [address] Amando [facility])([facility] Non-GME FHI1) OUTPATIENT [id number] f/u to labs/EK G needed/ physica l CYNDY LINARES P 06/13 Released w/o Limitations [address] [place] [address] Amando [facility])(F amily Practic e Non-GME FHI1) [address] [place] [address] Amando [facility])(Sco tt [facility] FAMRES Tm Blue) TELE CONSULT [id number] Labs for C-Scope VERONICA JUAREZ 06/[address] [place] [address] Amando [facility])(S [facility] FAMRES Tm Blue) [address] [place] [address] Amando [facility])([facility] Non-GME FHI2) OUTPATIENT [id number] sore throat KULWINDER MACHUCA 06/22 Released w/o Limitations [address] [place] [address] Amando B [facility]F amily Practic e Non-GME FHI2) [address] [place] [address] Amando B [facility] Non-GME FHI1) TELE CONSULT [id number] call back - SD Siddiqui am 06/[address] [place] [address] Amando B [facility]F amily Practic e Non-GME FHI1) [address] [place] [address] Amando B [facility] Non-GME FHI2) OUTPATIENT [id number] sore throat KULWINDER MACHUCA 06/27 Released w/o Limitations [address] [place] [address] Amando RODGERS ([facility])(F amily Practic e Non-GME FHI2) [address] [place] [address] Amando RODGERS ([facility]Sco tt [facility] FAM[facility] Tm Blue) OUTPATIENT [id number] visit for: screeni ng maligna nt neoplas m colon CHANDANA RAMESH E 07/26 Released w/o Limitations [address] [place] [address] Amando RODGERS ([facility]S cott [facility] FAM[facility] Tm Blue) [address] [place] [address] Amando RODGERS ([facility]Sco tt [facility] FAM[facility] Tm Blue) TELE CONSULT [id number] Colonos ocpy results RAMESH ELLINGTON 08/[address] [place] [address] Amando RODGERS ([facility]S cott [facility] FAM[facility] Tm Blue) [address] [place] [address] Amando RODGERS ([facility])(Gen eral Surgery) OUTPATIENT [id number] 3cm colonic polyp BARB PENN 08/17 Released w/o Limitations [address] [place] [address] Amando RODGERS ([facility])(G eneral Surgery ) [address] [place] [address] Amando RODGERS ([facility] Non-GME FHI1) TELE CONSULT [id number] call back - SONNY Andino am 09/[address] [place] [address] Amando RODGERS ([facility])(F amily Practic e Non-GME FHI1) [address] [place] [address] Amando RODGERS ([facility])(Gen eral Surgery) OUTPATIENT [id number] f/u-per zaynab Penn KENNETH D 09/14 Released w/o Limitations [address] [place] [address] Amando RODGERS ([facility])(G eneral Surgery ) [address] [place] [address] Amando RODGERS ([facility])(Gen eral Surgery) OUTPATIENT [id number] BARB PENN D 09/20 Released w/o Limitations [address] [place] [address] Amando RODGERS ([facility])(G eneral Surgery ) [address] [place] [address] Amando RODGERS ([facility])(Opt ometry) OUTPATIENT [id number] routine eye exam JUDSON BACON 09/21 Released w/o Limitations [address] [place] [address] Amando [facility]OD[facility] ([facility])(O ptometr y) [address] [place] [address] Amando [facility]OD[facility]ERS [facility] [facility] Non-GME FHI2) TELE CONSULT [id number] call back-pa THERESA Dupont am 10/[address] [place] [address])(F amily Practic e Non-GME FHI2) [address] [place] [address])(Gen eral Surgery) OUTPATIENT [id number] fzaynab bravo KENNETH D 10/27 Released w/o Limitations [address] [place] [address])(G eneral Surgery ) [address] [place] [address])(Gen eral Surgery) OUTPATIENT [id number] zaynab gonzalez KENNETH D 01/15 Released w/o Limitations [address] [place] [address])(G eneral Surgery ) [address] [place] [address])([facility] Non-GME FHI2) TELE CONSULT [id number] jerri ponce -- [place] Siddiqui am 01/[address] [place] [address])(F amily Practic e Non-GME FHI2) [address] [place] [address])([facility] Non-GME FHI1) OUTPATIENT [id number] follow- up colon [place] CYNDY LINARES 02/06 Released w/o Limitations [address] [place] [address])(F amily Practic e Non-GME FHI1) [address] [place] [address])([facility] Non-GME FHI1) TELE CONSULT [id number] lab results . NOLA SWIFT 03/[address] [place] [address])(F amily Practic e Non-GME FHI1) Procedures Combined [...] POSTOPERATIVE PERIOD REASON RELATED ORIGINAL PROCEDURE 8 [facility] DETERMINATION OF REFRACTIVE STATE 8 [facility] COLONOSCOPY, FLEXIBLE; WITH BIOPSY, SINGLE OR MULTIPLE 7 [facility] Non-Physician Phone Call To Pt/Provider Lengthy (21-30 min) Non-Physician Phone Call To Pt/Provider Lengthy (21-30 min) 99730 8 NOLA SWIFT [facility] Determination Of Refractive State Determination Of Refractive State 37281 8 JUDSON BACON [facility] Visual Serrano Test Intermediate Examination Visual Serrano Test Intermediate Examination 92367 8 JUDSON BACON [facility] Ophthalmological New Patient Start Comprehensive Care Ophthalmological New Patient Start Comprehensive Care 18352 8 JUDSON BACON [facility] Complete Colonoscopy 00 7 RAMESH ELLINGTON [facility] Diagnostic Colonoscopy Fiberoptic Forceps Biopsy 7 RAMESH ELLINGTON [facility] Social History Combined list of available smoking, tobacco, and other social history from Department of Defense and Veterans Affairs facilities. Social History Type Response Date Comment Sour e Tobacco smoking status NHIS QUIT TOBACCO >7 YEARS AGO 04/15/2015 [facility] History of tobacco use QUIT TOBACCO >7 Y EARS AGO 03/19/2014 [facility] History of tobacco use QUIT TOBACCO >7 Y EARS AGO 04/06/2013 [facility] This section is an empty social history section. [facility]
--- OUTSIDE RECORDS SUMMARY | 2024-10-08 20:42 | XMS_ITS | Encounter Summary ---
Author Organization [facility] Healthcare Address [address] [place] [address] Care Team Providers Care Sales Enablement Specialist Name Role Phone Aj Tejeda MD Primary Care Provider Reason for Visit * Reason Onset Date Comments Med Refill 11/24/2018 Encounter Details Date Type Department Care Team (Late st Contact Info) Description 11/24/2018 Telephone [facility] [place] [facility] [address] [facility] [address] [place] [address] Lamonte Donahue MD [address] [address], [address] [place] [address] Med Refill Social History Tobacco Use Types Packs/Day Years Used Date Smoking Tobacco: Former Smokeless Tobacco: Never Alcohol Use Standard Drinks/Week Comments Yes 6 (1 standard drink = 0.6 oz pur e alcohol) Sex and Gender Information Value Date Recorded Sex Assigned at Not on file 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
--- OUTSIDE RECORDS SUMMARY | 2024-10-08 20:42 | XMS_ITS | Encounter Summary ---
Author Organization [facility] Address [address] [facility] [place] [address] Care Team Providers Care Sales Record Clerk Name Role Phone Addi Heredia MD Primary Care Provider + [phone] Primo Heredia Primary Care Provider [phone] Addi Heredia MD Primary Care Provider + [phone] Miscellaneous, Not In File Primary Care Provider Unavailable Addi Heredia MD Primary Care Provider + [phone] Tremayne Del Real MD Primary Care Provider [...] Addi Heredia MD Primary Care Provider + [phone] Tremayne Del Real MD Primary Care Provider Addi Heredia MD Primary Care Provider + [phone] Addi Heredia MD Primary Care Provider + [phone] Tremayne Del Real MD Primary Care Provider Addi Heredia MD Primary Care Provider + [phone] Addi Heredia MD Primary Care Provider + [phone] Tremayne Del Real MD Primary Care Provider Addi Heredia MD Primary Care Provider + [phone] Addi Heredia MD Primary Care Provider + [phone] Tremayne Del Real MD Primary Care Provider Addi Heredia MD Primary Care Provider + [phone] Tremayne Del Real MD Primary Care Provider Addi Heredia MD Primary Care Provider + [phone] Tremayne Del Real MD Primary Care Provider Addi Heredia MD Primary Care Provider + [phone] Addi Heredia MD Primary Care Provider + [phone] Tremayne Del Real MD Primary Care Provider Aj Tejeda MD Primary Care Provider Encounter Details Date Type Department Care Team (Late st Contact Info) Description 09/03/2016 Orders Only [facility] Provider, MD Rick [address] [place] [address] Social History Tobacco Use Types Packs/Day Years Used Date Smoking Tobacco: Never Alcohol Use Standard Drinks/Week Comments Yes 0 (1 standard drink = 0.6 oz pur e alcohol) Sex and Gender Information Value Date Recorded Sex Assigned at Not on file 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 Gender Identity Male 04/01/2020 9:43 AM CDT [...] filedocumented in this encounter Care Teams Sales Record Clerk Relationship Specialty Start Date End Date Addi Heredia MD [address] [place], [place] [id number] PCP - General 11/27/16 01/18/17 Primo Heredia [address] [place], [place] [id number] PCP - General 10/14/16 11/26/16 Addi Heredia MD [address] [place] [address] PCP - General 08/06/16 10/13/16 Miscellaneous, Not In File PCP - General 01/19/17 Addi Heredia MD [address] [place] [address] PCP - General 01/20/17 04/21/17 Tremayne Del [...] - General 08/04/1708/08 Addi Heredia MD [address] [place] [address] PCP - General 08/09/17 08/09/17 Tremayne Del Real MD PCP - General 08/10/17 08/17/17 Add[place] [address] PCP - General 08/18/17 08/24/17 Addi Heredia MD [address] [place] [address] (Fax) PCP - General 08/25/17 08/25/17 Tremayne Del Real MD PCP - General 08/26/17 09/02/17 Addi Heredia MD [address] [place] [address] (Fax) PCP - General 09/03/17 09/06/17 Addi Heredia MD [address] [place] [address] (Fax) PCP - General 09/07/17 09/13/17 Tremayne Del Real MD PCP - General 09/14/17 09/15/17 Addi Heredia MD [address] [place] [address] (Fax) PCP - General 09/16/17 09/16/17 Addi Heredia MD [address] [place] [address] (Fax) PCP - General 09/17/17 09/29/17 Tremayne Del Real MD PCP - General 09/30/17 10/12/17 Addi Heredia MD [address] [place] [address] (Fax) PCP - General 10/13/17 10/14/17 Tremayne Del Real MD PCP - General 10/15/17 10/15/17 Addi Heredia MD [address] [place], [place] [id number] PCP - General 10/16/17 10/20/17 Tremayne Del Real MD PCP - General 10/21/17 11/09/17 Addi Heredia MD [address] [facility] [place] [place] [address] PCP - General 11/10/17 11/10/17 Addi Heredia MD [address] [place] [address] PCP - General 11/11/17 11/21/17 Tremayne Del Real MD PCP - General 11/22/17 10/05/18 Aj Tejeda MD [address] [place] [address] PCP - General 10/06/18 documented as of this encounter
--- OUTSIDE RECORDS SUMMARY | 2024-10-08 20:42 | XMS_ITS | Referral Summary ---
Author Organization [facility] Address [address] [place] [address] Care Team Providers Care Final Assembler Boat Name Role Phone Aj Tejeda MD Primary [...] 1 tablet (5 mg total) by mouth platform man before breakfast Active multivitamin tablet Take 1 tablet by mouth platform man before breakfast Active tamsulosin (FLOMAX) 0.4 mg [...] total) by mouth daily 3 Active omega 1-qyl-mtx-fish oil (Fish OiL) 1,000 mg (120 mg-180 [...] Diagnosed Date Chronic anticoagulation 05/30/2024 Atrial fibrillation ([facility]) 04/21/2024 A-fib ([facility]) 02/21/2024 Persistent atrial fibrillation 08/26/2023 Morbid [...] Cephalalgia 05/26/2017 Neuralgia 05/25/2017 No diagnosis on [place] I 05/04/2017 Memory impairment 04/22/2017 Degeneration of [...] on file Legal Sex Male 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 Gender Identity Male 04/01/2020 9:43 AM CDT [...] as needed Medical Devices Implanted Type Area Replanting Machine Crewman Device Identifier Shelf Expiration Date Model / Serial / Lot [employer] Proclaim Elite 4.95cmx5.55cm 5 Implantable Pulse Tonic 3660 Contrlsys - [id number] Implanted:Qty: 1 on 05/14/2022 by Shawn Boyce MD PhD at [facility] Other - see comments N/A: Back [employer] 3660 CONTRLSYS / / Description:Pulse generator Spinal Cord Stimulator-06/2017 Implanted:07/30 by Lamonte Donahue MD (Quantity not on file) Spinal Cord Stimulator Back [employer]ODS[employer] Alejandra Description:Model name lead1 [id number] Serial [id number] Implanted date 08-09-17 NEVRO SPINAL CORD STIMULATOR Per the vendor, this patients device exceeds the allowed impedence to safely have an MRI without surgical replacement Hip Bilater al: Hip Description:Total hip replac ment x2 [facility] Vascade Mvp 6-12fr Venous Closure [id number] - [id number] Implanted:Qty: 1 on 02/21/2024 by Abhilash Smith MD at [facility] 11/07/2025 800-612C-10 U / / [id number] A [facility] [employer] Vascade Mvp 6-12fr Venous Closure [id number] - [id number] Implanted:Qty: 1 on 02/21/2024 by Abhilash mSith MD at [facility] 11/07/2025 800-612C-10 U / / [id number] A [facility] [employer] Vascade Mvp 6-12fr Venous Closure [id number] - [id number] Implanted:Qty: 1 on 02/21/2024 by Abhilash Smith MD at [facility] 11/07/2025 800-612C-10 U / / [id number] A Procedures Procedure Name Priority Date/Time Associated [...] was last reviewed 2021. Testing performed by: [facility], [address] [place], [place] [address]daniela Wheeler, [place] [address] Blood 03/28/2024 11:2 5 AM CDT 03/28/2024 12:07 PM CDT Nereyda Ravi ANIMAL RIDE MANAGER LAB BLOOD ORDERABLES Final Res ult Performing Organization Address [facility] Co de Phone Number BIPIN [address] [place] [address] * (ABNORMAL) Hemoglobin A1c (02/18/2024 12:22 PM CDT) Pathologist [facility] Hgb A1C 5.9(H) 4.0 - 5.6 % Estimated Average Glucose 123 mg/dL BIPIN PERALTA Comment: The ADA recommends reporting an estimated Average Glucose (eAG) with all Hemoglobin A1c results using the equation derived from a study of 507 normal and diabetic adults. Minority populations were underrepresented and children were not included. (Diabetes Care 31:9391-2431, 2008). The eAG is not equivalent to a fasting glucose. Blood 02/18/2024 12:2 2 PM CDT 02/18/2024 12:22 PM CDT Crystal Harrell ANIMAL RIDE MANAGER LAB BLOOD ORDERABLES Final Res ult Performing Organization Address [facility] Co de Phone Number BIPIN [address] Department [employer] [place], [place] [id number] * Lipid panel (11/01/2019) SCRIBED Cholesterol, Total 158 <200 EXTERNAL LAB SCRIBED HDL 22 >40 EXTERNAL LAB SCRIBED LDL 82 <100 EXTERNAL LAB SCRIBED Triglycerides 262 <150 EXTERNAL LAB Blood specimen (specimen) us Historical Provider LAB BLOOD ORDERABLES Edit ed Result - Final EXTERNAL LAB from Last 3 Months or Most Recently Relevant to Health Maintenance Insurance [employer] MEDICARE [facility] Address: [address] [address] [place] [address] [employer] MEDICARE [employer] [facility] Advance Directives For more information, please contact: [phone] * Full Code (Latest Code Status on File) Date Activated Date Inactivated Comments 07/14/2018 10:13 AM 07/14/2018 12:31 PM Care Teams Final Assembler Boat Relationship Specialty Start Date End Date Aj Tejeda MD [address] [facility] [address] [facility] [address] [place] [address] PCP - General 10/06/18
[2024-10-08 20:49] LABS: Influenza A QL RT-PCR Negative (Negative); Influenza B QL RT-PCR Negative (Negative); RSV RNA, RT-PCR Negative (Negative); SARS-CoV-2 RNA PCR Positive (Negative)
[2024-10-08] MEDS: BENZONATATE 100 MG CAPSULE PO (21:37)
[2024-10-08 21:38] LABS: Troponin I < 0.012 ng/mL (0.000-0.034)
[2024-10-08 21:46] LABS: Acetaminophen < 10 ug/mL (10-30); Ammonia 15 umol/L (9-30); Ethanol < 10 mg/dL (<10); Salicylate < 1.0 mg/dL (2-20)
[2024-10-08 21:52] LABS: Creatine Kinase 56 U/L (55-170)
[2024-10-08 22:02] LABS: NT Pro B Type Natriuretic Pept 1010 pg/mL (19.9-100)
[2024-10-08] MEDS: FUROSEMIDE INJ 40 MG/4 ML VIAL IV PUSH (22:49)
[2024-10-08 23:15] LABS: Add Urine Microscopic? YES; Appearance Urine Clear (Clear); Bacteria Urine None Seen /hpf; Bilirubin Urine Negative (Negative); Blood Urine Negative (Negative); Color Urine Yellow (Yellow); Glucose Urine UA Negative (Negative); Ketones Urine Negative (Negative); Leukocyte Esterase Ur Negative LEU/UL (Negative); Nitrate Urine Negative (Negative); Non Pathogenic Casts 0-2; Protein Urine 1+ mg/dL (Negative); Specific Grav Ur 1.017 (1.001-1.035); Squamous Epithelial Cell Urine None Seen /hpf (Few); WBC Urine 0-5 /hpf (0-3); pH Urine 6.5 (5.0-9.0)
[2024-10-09] VITALS (14 sets, daily range): BP systolic 109–154; BP diastolic 68–79; PULSE 61–109; RESP 16–18; TEMP 36.9–37.2; O2SAT 95–98; BMI 40.7
--- NOTE | 2024-10-09 | ECHO_ITS ---
Patient Info Name: Jason Daigle Age: 79 years : 1945 Gender: Male Ht: 73 in Wt: 299 lbs BSA: 2.70 m2 HR: 109 bpm BP: 147 / 68 mmHg Technical Quality: Poor Exam Date: 10/09/2024 10:28 AM Exam Location: Echo Lab Patient Status: Inpatient Admit Date: 10/09/2024 Staff Ordering Physician: Selene Vernon MD Pipeline Engineer: Fernando Díaz RDCS Attending Provider: Selene Vernon MD Exam Type: CA echo doppler color flow Study Info Indications - arrhythmia Complete two-dimensional, color flow and Doppler transthoracic echocardiogram is performed with contrast to opacify the left ventricle and to improve the deliniation of the left ventricle endocardial borders. Contrast/Agitated Saline Contrast/Ag. Saline: Definity Amount: 2.00 ml Existing IV Access: Yes Reason for Poor Study: poor echocardiographic windows Summary 1. There is normal biventricular systolic function. 2. Technically difficult study with limited views. Left Ventricle The left ventricle is normal in size and systolic function. There is concentric left ventricular remodeling. The left ventricular ejection fraction is visually estimated to be 55-60%. Right Ventricle The right ventricle is normal in size and systolic function. Aortic Valve The aortic valve is not well visualized. Pulmonic Valve The pulmonic valve is not visualized. Mitral Valve The mitral valve is not well visualized. Tricuspid Valve The tricuspid valve is not well visualized. Pericardium/Pleural The pericardium is not well visualized. Inferior Vena Cava Inferior vena cava is not well visualized. Aorta The aortic root at the level of the sinus of Valsalva measures 3.4 cm in diameter. Left Ventricular Outflow Tract Name Value Normal LVOT 2D LVOT Diameter 2.0 cm LVOT Doppler LVOT Peak Gradient 2 mmHg LVOT Mean Gradient 1 mmHg LVOT VTI 15 cm LVOT VTI/AV VTI Ratio 1.1 LVOT Stroke Volume 48 ml LVOT CO 3.1 l/min LVOT CI 1.2 l/min/m2 Mitral Valve Name Value Normal MV Doppler MV Decel [place] 469 cm/s2 MV PHT 43 ms MV Area (PHT) 5.1 cm2 4.0-5.0 MV Diastolic Function MV E Peak Velocity 70 cm/s MV A Peak Velocity 35 cm/s MV E/A 2.0 MV Decel Time 149 ms MV Annular TDI MV E/e' (Septal) 8.4 <=8.0 MV E/e' (Lateral) 9.7 <=8.0 MV E/e' (Average) 9.1 Aorta Name Value Normal Ascending Aorta Ao Root Diameter (MM) 4.0 cm Ao Root Diam Index (MM) 1.5 cm/m2 Aortic Valve Name Value Normal AV Doppler AV Peak Velocity 75 cm/s AV Peak Gradient 2 mmHg AV Mean Gradient 1 mmHg AV VTI 13 cm AV Area (Cont Eq VTI) 3.6 cm2 >=3.0 AV Area (Cont Eq Boogie) 2.8 cm2 AV Regurgitation 2D LVOT Area 3.2 cm2 Ventricles Name Value Normal LV Dimensions 2D/MM IVS Diastolic Thickness (2D) 1.3 cm 0.6-1.0 LVID Diastole (2D) 4.7 cm 4.2-5.8 LVIW Diastolic Thickness (2D) 1.6 cm 0.6-1.0 LVID Systole (2D) 3.0 cm 2.5-4.0 LVOT Diameter 2.0 cm LV Mass (2D Cubed) 266.60 g 88.00-224.00 LV Mass Index (2D Cubed) 99 g/m2 49-115 Relative Wall Thickness (2D) 0.67 LV Fractional Shortening/Ejection Fraction 2D/MM LV Fractional Shortening (2D) 33 % 25-43 LV EF (2D Teicholz) 62 % 52-72 LV Diastolic Volume (4C MOD) 85 ml LV EF (4C MOD) 48 % LV Diastolic Volume (2C MOD) 86 ml LV EF (2C MOD) 76 % LV Diastolic Volume (BP MOD) 86 ml 62-150 LV Diastolic Volume Index (BP MOD) 32 ml/m2 34-74 LV Systolic Volume (BP MOD) 32 ml 21-61 LV Systolic Volume Index (BP MOD) 12 ml/m2 11-31 LV EF (BP MOD) 63 % 52-72 LV Diastolic Length (4C) 7.3 cm LV Systolic Length (4C) 7.1 cm LV Stroke Volume (4C MOD) 41 ml Atria Name Value Normal LA Dimensions LA Dimension (MM) 4.4 cm 3.0-4.1 LA Volume (4C A-L) 63 ml LA Volume (BP A-L) 77 ml Report Signatures
--- NOTE | 2024-10-09 00:45 | P.HP_ITS ---
H&P: HPI History of Present Illness Date/Time: 10/09/24 00:45 Chief Complaint: Weakness, cough, leg swelling, shortness of breath Narrative: A pleasant 79-year-old male past medical history obesity, MELANIE compliant with CPAP, prior tobacco abuse, COPD, history of right lower extremity DVT, depression, migraines, paroxysmal atrial fibrillation on Eliquis and amiodarone, CKD stage IIIA chronic hypertension, history of renal cell carcinoma status post nephrectomy, history of colon cancer, BPH status post TURP x2, history of prostate and bladder cancer. He is accompanied by his daughter who lives with. Presents to [facility] on 10/08/2024 with multiple complaints. One week prior to admission he reports feeling off but in last few days he has had noticeable swelling in his legs more than usual, shortness of breath, dry cough, feeling very weak, intermittent episodes of confusion. Significant ER vitals included heart rate of 102 irregular, eventually increasing to 140 transiently. Respiratory rate 16 21, blood pressure 169/91 coming down to 147/68 after Lasix administration. WBC mildly elevated at 10.4, hemoglobin 12.0, sodium 136, BUN 12, serum creatinine 1.24, BNP 1000, troponin negative. Atrial fibrillation demonstrated on EKG. COVID-[address] without acute abnormality, chest x-ray without acute cardiopulmonary disease. Patient was given Tessalon Perles furosemide 40 mg IV x1. Evaluation by myself after the initial ER workup -patient reports he still feels weak. He is amenable to being admitted due to fall risk. He is on Eliquis. He is not actively coughing, denies any current confusion, denies shortness of breath while resting. Review of Systems Review of Systems: All systems reviewed & are unremarkable except as noted in HPI and below (HPI) [facility] Past Medical History Medical History Lymphedema Constipation Oropharyngeal dysphagia Chronic kidney disease Impaired fasting glucose Obstructive sleep apnea on CPAP Chronic obstructive pulmonary disease Benign prostatic hyperplasia CKD (chronic kidney disease) stage 3, GFR 30-59 ml/min Gross hematuria Obesity History of tobacco abuse COPD (chronic obstructive pulmonary disease) MELANIE on CPAP Right leg DVT Hearing loss Surgical History Surgical History Hx of colectomy Hx of transurethral resection of prostate H/O left nephrectomy History of bilateral hip arthroplasty History of left nephrectomy History of partial colectomy Sacral nerve stimulator present History of appendectomy Family History Family History Sibling Malignant neoplasm of prostate Family history of lung cancer Family history of pancreatic cancer Hypertension Father Chronic obstructive pulmonary disease Social History Social History Social History: Surrogate medical decision maker: Roxana Quintanilla, daughter. Code status: Full code. Smoking packs per day: 2 Smoking cigarettes per day: 40.0 Years smoked: 40 Smoking pack-years: 80.00 Smoking status: Former smoker Second hand tobacco smoke exposure: Yes Smoking end date: 08/30/09 Additional smoking assessment comments: states Chantix helped him quit Alcohol intake: current Drinks per week: 4 Alcohol use details: 5-6 BEERS/WEEK Substance use: never Substance use type: does not use Do You Feel Safe in your Home?: Yes Lack of Transportation: No Lack of Food: Never True Current Housing: I Have Housing Concerned About Future Housing: No Difficulty Paying Gas/Electric Bills: No Difficulty Paying for Meds: No Currently Unemployed: No Education: Master's Degree or Higher Difficulty w/ Childcare or Family Care: No Living arrangements: with family Additional living arrangements comments: DAUGHTER AND MIN Occupation/Education: retired Additional occupation/education comments: 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 Gender identity (if verbalized by the patient): Male Sexual Orientation (if Verbalized by the Patient): Straight or Heterosexual Spiritual care concerns: No Meds Home Medications and Allergies Home Medications ?Medication ?Instructions ?Recorded ?Confirmed ?Type ascorbic acid (vitamin C) 1,000 mg 1,000 mg PO DAILY 07/21/21 08/17/24 History tablet furosemide 20 mg tablet (Lasix) 20 mg PO PRN PRN Edema 07/21/21 08/17/24 History multivitamin 1 tablet PO DAILY 07/21/21 08/17/24 History apixaban 5 mg tablet (Eliquis) 5 mg PO Q12HR a-fib #60 tabs 07/30/23 08/17/24 Rx albuterol sulfate 2.5 mg/3 mL 2.5 mg (3 mL) inhalation Q4-6H PRN 08/24/23 08/17/24 Rx (0.083 %) solution for nebulization shortness of breath or wheezing #90 mL albuterol sulfate 90 mcg/actuation 1 - 2 inh inhalation Q4-6H PRN 12/29/23 08/17/24 History aerosol inhaler sob/wheezing pantoprazole 40 mg tablet,delayed 40 mg PO QAM #90 tabs 01/17/24 08/17/24 Rx release (Protonix) gabapentin 100 mg capsule 100 mg PO BID #180 caps 01/21/24 08/17/24 Rx tiotropium 2.5 mcg-olodaterol 2.5 2 puff inhalation DAILY #3 ea 03/15/24 08/17/24 Rx mcg/actuation mist for inhalation (Stiolto Respimat) docusate sodium 100 mg capsule 100 mg PO .prn 06/08/24 08/17/24 History (Colace) amiodarone 200 mg tablet 100 mg PO DAILY 06/12/24 08/17/24 History cholecalciferol (vitamin D3) 125 125 mcg PO DAILY 06/12/24 08/17/24 History mcg (5,000 unit) tablet cyclosporine 0.05 % eye drops in a 1 drp EACH EYE BID 06/12/24 08/17/24 History dropperette glucosamine sulf dipot 2 cap PO DAILY 06/12/24 08/17/24 History chlr,msm,chond 550 mg-C 30 mg-fausto 1 mg capsule (Glucosamine Chondroitin) melatonin 10 mg capsule 10 mg PO HS PRN Insomnia 06/12/24 08/17/24 History omega-3 fatty acids 1,000 mg PO DAILY 06/12/24 08/17/24 History turmeric 400 mg capsule 400 mg PO DAILY 06/12/24 08/17/24 History vit C 250 mg-vit E 90 mg-zinc 40 2 tablet PO DAILY 06/12/24 08/17/24 History mg-copper 1 mx-iviqsu-saycks capsule (PreserVision AREDS-2) zinc 50 mg capsule 50 mg PO DAILY 06/12/24 08/17/24 History hydrocodone 5 mg-acetaminophen 325 1 - 2 tablet PO Q6H PRN pain #20 06/16/24 08/17/24 Rx mg tablet tabs fenofibrate 54 mg tablet 54 mg PO DAILY #90 tabs 06/30/24 08/17/24 Rx levofloxacin 500 mg tablet 500 mg PO DAILY 07/12/24 08/17/24 History potassium chloride 10 mEq 10 meq PO DAILY #90 tabs 08/15/24 08/17/24 Rx tablet,extended release Allergies Allergy/AdvReac Type Severity Reaction Status Date / Time morphine Allergy Severe Confusion/Severe Verified 10/08/24 20:02 agitation/AGRESSIVE Vital Signs Vital Signs - 24 hr 10/08/24 19:55 10/08/24 20:01 10/08/24 20:01 Temperature 98.3 F Pulse Rate 98 94 Respiratory Rate 20 Blood Pressure 179/97 H Pulse Oximetry 96 96 Oxygen Delivery Room Air Room Air 10/08/24 21:29 10/08/24 22:39 10/08/24 22:39 Temperature Pulse Rate 91 98 45 L Respiratory Rate 19 Blood Pressure 155/78 H 169/91 H Pulse Oximetry 96 Oxygen Delivery 10/08/24 22:42 10/08/24 22:43 10/08/24 22:45 Temperature Pulse Rate 63 91 90 Respiratory Rate 22 H 18 Blood Pressure 175/108 H 169/91 H 175/108 H Pulse Oximetry 96 96 Oxygen Delivery 10/08/24 22:53 10/08/24 23:18 Temperature Pulse Rate 92 102 H Respiratory Rate 24 H 21 H Blood Pressure 154/82 H 145/64 H Pulse Oximetry 97 96 Oxygen Delivery Exam Const: General: comfortable and no acute distress Eyes: Pupils: Equal, round and reactive pupils present Resp: Effort & Inspection: normal respiratory effort Auscultation: clear to auscultation bilaterally Cardio: Rate: tachycardic Rhythm: abnormal rhythm GI: GI Palp: Yes Soft to palpation Extrem: General: edema H&P: Results Labs Labs: Short CBC 10/08/24 Range/Units 20:03 WBC 10.4 H (4.5-10.0) K/mm3 Hgb 12.0 L (14.0-18.0) g/dL Hct 39.1 L (42.0-52.0) % Plt Count 253 (150-375) k/mm3 BMP 10/08/24 20:03 Sodium 136 L Potassium 3.8 Chloride 98 Carbon Dioxide 30 BUN 12 D Creatinine 1.24 Glucose 117 H Calcium 8.9 Cardiac Enzymes 10/08/24 Range/Units 20:59 Total Creatine Kinase 56 (55-170) U/L Troponin I < 0.012 (0.000-0.034) ng/mL Liver Function 10/08/24 Range/Units 20:03 Total Bilirubin 0.5 (0.2-1.3) mg/dL AST 23 (17-59) U/L ALT 18 (6-50) U/L Alkaline Phosphatase 88 (38-126) U/L Albumin 4.1 (3.5-5.1) g/dL Urine 10/08/24 Range/Units 23:03 Urine Color Yellow (Yellow) Urine Appearance Clear (Clear) Urine pH 6.5 (5.0-9.0) Ur Specific [place] 1.017 (1.001-1.035) Urine Protein 1+ H (Negative) mg/dL Urine Glucose (UA) Negative (Negative) mg/dL Assessment and Plan Assessment and plan (1) Physical deconditioning: Code(s): R53.81 - Other malaise Status: Acute (2) Atrial fibrillation with RVR: Code(s): I48.91 - Unspecified atrial fibrillation Status: Acute (3) Shortness of breath: Code(s): R06.02 - Shortness of breath Status: Resolved (4) COVID-19: Code(s): U07.1 - COVID-19 Status: Acute (5) Leg swelling: Code(s): M79.89 - Other specified soft tissue disorders Status: Acute Plan A pleasant 79-year-old male past medical history obesity, MELANIE compliant with CPAP, prior tobacco abuse, COPD, history of right lower extremity DVT, depression, migraines, paroxysmal atrial fibrillation on Eliquis and amiodarone, CKD stage IIIA chronic hypertension, history of renal cell carcinoma status post nephrectomy, history of colon cancer, BPH status post TURP x2, history of prostate and bladder cancer. He is accompanied by his daughter who lives with. Presents to [facility] on 10/08/2024 with multiple complaints. One week prior to admission he reports feeling off but in last few days he has had noticeable swelling in his legs more than usual, shortness of breath, dry cough, feeling very weak, intermittent episodes of confusion. Significant ER vitals included heart rate of 102 irregular, eventually increasing to 140 transiently. Respiratory rate 16 21, blood pressure 169/91 coming down to 147/68 after Lasix administration. WBC mildly elevated at 10.4, hemoglobin 12.0, sodium 136, BUN 12, serum creatinine 1.24, BNP 1000, troponin negative. Atrial fibrillation demonstrated on EKG. COVID-[address] without acute abnormality, chest x-ray without acute cardiopulmonary disease. Patient was given Tessalon Perles furosemide 40 mg IV x1. Evaluation by myself after the initial ER workup -patient reports he still feels weak. He is amenable to being admitted due to fall risk. He is on Eliquis. He is not actively coughing, denies any current confusion, denies shortness of breath while resting. ----- Patient will be admitted for observation for weakness. Daughter feels he is too great of a fall risk. PTOT consulted. He is not requiring oxygen, his shortness of breath is likely either due to tachyarrhythmia induced cardiomyopathy or COVID. Continue telemetry. Monitor for any oxygen desaturations. Will restart his amiodarone 100 mg p.o. q.day. start metoprolol 25 mg p.o. b.i.d.. Check venous Doppler ultrasounds of lower extremities. Was given a 1 time dose furosemide 40 mg IV in the ER. Echocardiogram ordered. ----- Resume CLINICAL PHYSICIAN ASSISTANT Eliquis Saline lock IV Patient wishes to be full code PT OT Fall risk Medications will be restarted as appropriate Hospitalist MIPS Advance Care Plan I have confirmed that the patient's Advanced Care Plan is present, code status is documented, or surrogate decision maker is listed in patient medical record.: Yes Medication Reconciliation I have utilized all available resources to obtain, update and review the patient s current medications (includes all prescriptions, OTC, herbals, cannabis, and nutritional supplements).: Yes
--- NOTE | 2024-10-09 00:49 | PC.NURSE ---
pt stated, I was unable to get to the urinal to urinate in the urinal . patient was sitting in a pool of urine when this rn went to answer the call light. pt was able to stand and be placed in a new diaper and this rn was able to provide a partial bed bath to patient. patient states that he is more comfortable sitting in a wheelchair. pt refusing to wear vital equipment at this time.
--- NOTE | 2024-10-09 01:19 | PC.NURSE ---
patient pulled iv out because i didn't want it
--- NOTE | 2024-10-09 01:27 | ADMGEN ---
This patient, Jason Daigle, was admitted to 3 [facility] Surg Room 320-01 at 0100. Patient/family oriented to hospital policies and general routines including ID bracelet, bed and alarms, visiting hours, pain management, procedures, bathroom and other care routines, personal items, smoking policy, room service/diet, and visiting hours. Information on how to activate the Rapid Response Team has been discussed. Patient/Family are encouraged to report perceived risks to care and to ask questions if they do not understand what they are told or what they should do.
[2024-10-09] MEDS: METOPROLOL TARTRATE 25 MG TABLET PO ×3 (01:59→20:44)
--- NOTE | 2024-10-09 08:45 | P.PNIM_ITS ---
Progress Note: A&P Assessment and Plan (1) Physical deconditioning: Code(s): R53.81 - Other malaise Status: Acute Assessment and Plan: Patient endorsing increased weakness and daughter feels he is too great of a fall risk to return home. - UA nonconcerning for infection - Viral panel: covid positive - Head CT: No acute intracranial hemorrhage or suspicious mass effect. - Chest XR: No focal infiltrate or effusion. - PT/OT consults (2) Atrial fibrillation with RVR: Code(s): I48.91 - Unspecified atrial fibrillation Status: Acute Assessment and Plan: Significant ER vitals included heart rate of 102 irregular, eventually increasing to 140 transiently. - EKG: Afib HR 90 - s/p cardioversion in December 2023 with reversion - Continue metoprolol 25 mg BID and amiodarone 100 mg daily - Anticoagulation: Eliquis 5 mg BID - Tele 10/09: Remains in afib with regular rate. (3) Shortness of breath: Code(s): R06.02 - Shortness of breath Status: Resolved Assessment and Plan: Likely either due to tachyarrhythmia induced cardiomyopathy or COVID - Remains on room air - Covid positive, does not meet remdesivir criteria - Chest XR: No focal infiltrate or effusion. - Given Tessalon Perles furosemide 40 mg IV x1 in the ED (4) Leg swelling: Code(s): M79.89 - Other specified soft tissue disorders Status: Acute Assessment and Plan: Bilateral lower extremity 1+ pitting edema - Lasix 40 mg IV x1 in the ED - Lasix 20 mg daily started - Echo: LVEF 55-60% - Venous dopplers negative for DVT (5) COVID-19: Code(s): U07.1 - COVID-19 Status: Acute Assessment and Plan: Place in COVID19 isolation precautions, cardiac monitoring, and continuous pulse ox Monitor serum electrolytes, CRP, Lactic acid, troponin, CBC, WBC, temperature curve and follow cultures Oxygen via NC; wean as tolerated. Keep spO2 greater than 91% Pt is not a candidate for Remdesivir and Dexamethasone as they remain on room air (6) Obstructive sleep apnea on CPAP: Code(s): G47.33 - Obstructive sleep apnea (adult) (pediatric); Z99.89 - Dependence on other enabling machines and devices Status: Acute Assessment and Plan: Continue CPAP Time Spent With Patient Time with patient: 25 - 35 minutes Subjective Date/time seen: 10/09/24 08:45 Interval history: 79-year-old male past medical history obesity, MELANIE compliant with CPAP, prior tobacco abuse, COPD, history of right lower extremity DVT, depression, migraines, paroxysmal atrial fibrillation on Eliquis and amiodarone s/p CV with reversion, CKD stage IIIA chronic hypertension, history of renal cell carcinoma status post nephrectomy, history of colon cancer, BPH status post TURP x2, history of prostate and bladder cancer who presents to the hospital for multiple complaints. Patient is pleasant lying comfortably in bed. He continues to endorse weakness with ongoing shortness of breath especially with ambulation. He notes that his lower extremity edema slightly improved since admission. He has converted back into afib, but rate remains stable. Continuing his afib medications. Patient has no other complaints denying chest pain, palpitations, nausea/vomiting and abdominal pain. Review of Systems Review of Systems: All systems reviewed & are unremarkable except as noted in HPI and below Exam Narrative: AF HR 65 RR 16 SpO2 95 BP 154/74 General: male in no acute respiratory distress who is nontoxic appearing, lying semi recumbent in bed. HEENT: Normocephalic. Atraumatic. Extraocular movement intact. Sclera clear and anicteric. No facial asymmetry. Chest: Lungs are clear to auscultation bilaterally. No wheezes or crackles. CV: Heart was regular rate and rhythm. S1/S2. No murmurs, gallops, or rubs. Abd: Abdomen was soft. Nontender. Nondistended. Postive bowel sounds. Ext: No clubbing, cyanosis. 1+ pitting edema to the mid pretibial region. 2+ DP pulses bilaterally. Neuro: Patient is alert and oriented x4. Speech is clear. Objective Data Vital Signs Vital Signs: Vital Signs - 24 hr 10/08/24 19:55 10/08/24 20:01 10/08/24 20:01 Temperature 98.3 F Pulse Rate 98 94 Respiratory Rate 20 Blood Pressure 179/97 H Pulse Oximetry 96 96 Oxygen Delivery Room Air Room Air 10/08/24 21:29 10/08/24 22:39 10/08/24 22:39 Temperature Pulse Rate 91 98 45 L Respiratory Rate 19 Blood Pressure 155/78 H 169/91 H Pulse Oximetry 96 Oxygen Delivery 10/08/24 22:42 10/08/24 22:43 10/08/24 22:45 Temperature Pulse Rate 63 91 90 Respiratory Rate 22 H 18 Blood Pressure 175/108 H 169/91 H 175/108 H Pulse Oximetry 96 96 Oxygen Delivery 10/08/24 22:53 10/08/24 23:18 10/09/24 00:51 Temperature Pulse Rate 92 102 H 65 Respiratory Rate 24 H 21 H 16 Blood Pressure 154/82 H 145/64 H 147/68 H Pulse Oximetry 97 96 95 Oxygen Delivery 10/09/24 01:59 10/09/24 02:31 10/09/24 04:00 Temperature Pulse Rate 109 H 81 Respiratory Rate Blood Pressure Pulse Oximetry Oxygen Delivery Room Air Intake/Output Intake/Output: Intake & Output 10/06/24 10/07/24 10/08/24 10/09/24 23:59 23:59 23:59 23:59 Intake Total 300 Balance 300 Meds/Results Medications: Active Medications Generic Name Dose Route Start Last Admin Trade Name Freq PRN Reason Stop Dose Admin Acetaminophen 650 mg 10/08/24 23:46 Acetaminophen 325 Mg Tablet PO Q4H PRN Mild Pain (1-3) or Fever Amiodarone HCl 100 mg 10/09/24 08:00 Amiodarone Hcl 100 Mg Tablet PO DAILY@0800 [facility] Apixaban 5 mg 10/09/24 09:00 Apixaban 5 Mg Tablet PO Q12HR [facility] Cyclosporine 1 drop 10/09/24 09:00 Cyclosporine 0.4 Ml Ophth Solution EACH EYE BID [facility] Fenofibrate 48 mg 10/09/24 09:00 Fenofibrate,Micronized 48 Mg Tablet PO QAM [facility] Gabapentin 100 mg 10/09/24 09:00 Gabapentin 100 Mg Capsule PO BID [facility] Melatonin 10 mg 10/09/24 02:39 Melatonin 5 Mg Tablet PO HS PRN Insomnia Metoprolol Tartrate 25 mg 10/09/24 00:45 10/09/24 01:59 Metoprolol Tartrate 25 Mg Tablet PO 25 mg Q12HR [facility] Administration Ondansetron HCl 4 mg 10/08/24 23:46 Ondansetron Inj 4 Mg/2 Ml Vial IV PUSH Q4H PRN Nausea Perflutren Lipid Microsphere 0 ml 10/09/24 00:42 Perflutren Lipid Microspheres 1.5 Ml Vial Diluted To 10 Ml Total Volume IV PUSH 10/12/24 00:43 ONCE PRN adequate visualization Protocol Radiology Results: ITS Impressions Chest X-Ray 10/08/24 20:34 IMPRESSION: No focal infiltrate or effusion. Head CT 10/08/24 21:51 Impression: No acute intracranial hemorrhage or suspicious mass effect. Labs Labs: Laboratory Results - last 24 hr 10/08/24 10/08/24 10/08/24 20:03 20:04 20:59 WBC 10.4 H RBC 4.64 Hgb 12.0 L Hct 39.1 L MCV 84.3 MCH 25.9 L MCHC 30.7 L RDW 14.9 H Plt Count 253 MPV 9.6 Immature Gran % (Auto) 0.5 Neut % (Auto) 71.8 Lymph % (Auto) 14.3 L [place] % (Auto) 12.2 H Eos % (Auto) 0.3 Baso % (Auto) 0.9 Lymph # (Auto) 1.48 [place] # (Auto) 1.3 H Eos # (Auto) 0.0 Baso # (Auto) 0.1 Abs Immat Gran (auto) 0.05 H Absolute Neuts (auto) 7.5 H Absolute Nucleated RBC 0.000 Nucleated RBC % 0.0 Sodium 136 L Potassium 3.8 Chloride 98 Carbon Dioxide 30 Anion Gap 8 BUN 12 D Creatinine 1.24 Estim Creat Clear Calc 60 Estimated GFR 56 L Glucose 117 H Calcium 8.9 Total Bilirubin 0.5 AST 23 ALT 18 Alkaline Phosphatase 88 Ammonia 15 Total Creatine Kinase 56 Troponin I < 0.012 NT-Pro-B Natriuret Pep 1010 H Total Protein 7.0 Albumin 4.1 TSH 2.380 Urine Color Urine Appearance Urine pH Ur Specific [place] Urine Protein Urine Glucose (UA) Urine Ketones Ur Blood (Man) Urine Nitrate Urine Bilirubin Urine Urobilinogen Leukocyte Esterase Rfl Urine RBC Urine WBC Ur Squamous Epith Cells Urine Bacteria Urine Casts Salicylates < 1.0 L Acetaminophen < 10 L Ethyl Alcohol < 10 Influenza A (RT-PCR) Negative Influenza B (RT-PCR) Negative RSV (RT-PCR) Negative SARS-CoV-2 RNA (RT-PCR) Positive A 10/08/24 23:03 WBC RBC Hgb Hct MCV MCH MCHC RDW Plt Count MPV Immature Gran % (Auto) Neut % (Auto) Lymph % (Auto) [place] % (Auto) Eos % (Auto) Baso % (Auto) Lymph # (Auto) [place] # (Auto) Eos # (Auto) Baso # (Auto) Abs Immat Gran (auto) Absolute Neuts (auto) Absolute Nucleated RBC Nucleated RBC % Sodium Potassium Chloride Carbon Dioxide Anion Gap BUN Creatinine Estim Creat Clear Calc Estimated GFR Glucose Calcium Total Bilirubin AST ALT Alkaline Phosphatase Ammonia Total Creatine Kinase Troponin I NT-Pro-B Natriuret Pep Total Protein Albumin TSH Urine Color Yellow Urine Appearance Clear Urine pH 6.5 Ur Specific [place] 1.017 Urine Protein 1+ H Urine Glucose (UA) Negative Urine Ketones Negative Ur Blood (Man) Negative Urine Nitrate Negative Urine Bilirubin Negative Urine Urobilinogen 1.0 Leukocyte Esterase Rfl Negative Urine RBC 3-5 H Urine WBC 0-5 Ur Squamous Epith Cells None seen Urine Bacteria None seen Urine Casts 0-2 Salicylates Acetaminophen Ethyl Alcohol Influenza A (RT-PCR) Influenza B (RT-PCR) RSV (RT-PCR) SARS-CoV-2 RNA (RT-PCR)
[2024-10-09 10:09] LABS: Basophils Absolute Auto 0.1 K/mm3 (0.0-0.1); Basophils Percent Auto 0.7 % (0.2-1.2); Eosinophils Percent Auto 0.1 % (0-4.4); Hematocrit 38.4 % (42.0-52.0); Hemoglobin 11.7 g/dL (14.0-18.0); Immature Granulocyte Absolute 0.05 K/mm3 (0.00-0.031); Immature Granulocyte Percent A 0.5 % (0-0.5); Lymphocytes Absolute Auto 1.95 K/mm3 (0.9-3.2); Lymphocytes Percent Auto 18.7 % (18.3-44.2); Mean Corpuscular HGB Conc 30.5 g/dl (32-36); Mean Corpuscular Hemoglobin 25.8 pg (26-34); Mean Corpuscular Volume 84.6 fl (80-100); Mean Platelet Volume 9.6 fl (7.4-10.4); Monocytes Absolute Auto 1.7 K/mm3 (0.1-0.6); Monocytes Percent Auto 16.3 % (2.6-8.5); Neutrophils Absolute Auto 6.7 K/mm3 (1.3-6.7); Neutrophils Percent Auto 63.7 % (45.5-73.1); Platelet Count Result 264 k/mm3 (150-375); Red Blood Count 4.54 M/mm3 (4.6-6.20); White Blood Count 10.5 K/mm3 (4.5-10.0)
[2024-10-09 10:20] LABS: Alanine Aminotransferase 19 U/L (6-50); Albumin Level 3.9 g/dL (3.5-5.1); Alkaline Phosphatase 75 U/L (38-126); Anion Gap 12 mmol/L (4-12); Aspartate Amino Transferase 18 U/L (17-59); Bilirubin,Total 0.5 mg/dL (0.2-1.3); Blood Urea Nitrogen 12 mg/dL (9-20); Calcium 8.6 mg/dL (8.4-10.2); Carbon Dioxide 27 mmol/L (22-30); Chloride 97 mmol/L (98-107); Estimated CRCL calculation 58 ml/min; Estimated Glomerular Filt Rate 53; Glucose 108 mg/dL (65-110); Potassium 3.6 mmol/L (3.4-5.0); Sodium 136 mmol/L (137-145)
[2024-10-09] MEDS: AMIODARONE HCL 100 MG TABLET PO (10:20)
[2024-10-09] MEDS: cycloSPORINE 0.4 ML OPHTH SOLUTION 1 DROP EACH EYE ×2 (10:21→16:46)
[2024-10-09] MEDS: GABAPENTIN 100 MG CAPSULE PO ×2 (10:21→16:46)
[2024-10-09] MEDS: APIXABAN 5 MG TABLET PO ×2 (10:21→20:44)
[2024-10-09] MEDS: FENOFIBRATE,MICRONIZED 48 MG TABLET PO (10:21)
[2024-10-09] MEDS: PERFLUTREN LIPID MICROSPHERES 1.5 ML VIAL DILUTED TO 10 ML TOTAL VOLUME IV PUSH (11:40)
--- NOTE | 2024-10-09 12:13 | IVDEFINITY ---
Prior to administration of IV Definity the patient was educated on the risks and benefits of the imaging enhancing agent including potential adverse side effects. The patient verbalized understanding. Allergies were verified. No exclusion criteria were identified and at least one of the following inclusion criteria were met: 1) physician request, 2) patient technically difficult to image (per the [place] [employer]chocardi[employer] guidelines of two or more segments not discernable within the apical view), or 3) questionable left ventricular function. ?
--- NOTE | 2024-10-09 16:51 | PC.NURSE ---
Asuncion CASTELLANO notified of patient having audible wheezes with activity and while eating dinner. Ra sat 96%. New orders received.
[2024-10-09] MEDS: FUROSEMIDE INJ 40 MG/4 ML VIAL IV PUSH (17:07)
[2024-10-09] MEDS: MELATONIN 5 MG TABLET 10 MG PO (20:49)
[2024-10-10] VITALS (12 sets, daily range): BP systolic 122–158; BP diastolic 60–72; PULSE 58–73; RESP 16–22; TEMP 36.2–36.8; O2SAT 92–97
[2024-10-10] MEDS: MELATONIN 5 MG TABLET PO (03:47)
[2024-10-10] MEDS: AMIODARONE HCL 100 MG TABLET PO (08:13)
[2024-10-10] MEDS: APIXABAN 5 MG TABLET PO ×2 (08:13→20:23)
[2024-10-10] MEDS: FENOFIBRATE,MICRONIZED 48 MG TABLET PO (08:13)
[2024-10-10] MEDS: FUROSEMIDE 20 MG TABLET PO (08:13)
[2024-10-10] MEDS: METOPROLOL TARTRATE 25 MG TABLET PO ×2 (08:13→20:23)
[2024-10-10] MEDS: GABAPENTIN 100 MG CAPSULE PO ×2 (08:13→16:47)
[2024-10-10] MEDS: cycloSPORINE 0.4 ML OPHTH SOLUTION 1 DROP EACH EYE ×2 (08:13→16:47)
[2024-10-10 08:52] LABS: Anion Gap 9 mmol/L (4-12); Blood Urea Nitrogen 17 mg/dL (9-20); Carbon Dioxide 32 mmol/L (22-30); Chloride 95 mmol/L (98-107); Estimated CRCL calculation 54 ml/min; Estimated Glomerular Filt Rate 48; Glucose 108 mg/dL (65-110); Magnesium 1.9 mg/dL (1.6-2.3); Potassium 3.5 mmol/L (3.4-5.0); Sodium 136 mmol/L (137-145)
[2024-10-10 08:53] LABS: Alanine Aminotransferase 20 U/L (6-50); Alkaline Phosphatase 84 U/L (38-126); Anion Gap 7 mmol/L (4-12); Aspartate Amino Transferase 21 U/L (17-59); Basophils Absolute Auto 0.1 K/mm3 (0.0-0.1); Basophils Percent Auto 1.1 % (0.2-1.2); Bilirubin,Total 0.5 mg/dL (0.2-1.3); Blood Urea Nitrogen 17 mg/dL (9-20); Carbon Dioxide 34 mmol/L (22-30); Chloride 95 mmol/L (98-107); Eosinophils Absolute Auto 0.1 K/mm3 (0-0.3); Eosinophils Percent Auto 0.7 % (0-4.4); Estimated CRCL calculation 53 ml/min; Estimated Glomerular Filt Rate 47; Glucose 108 mg/dL (65-110); Hematocrit 41.3 % (42.0-52.0); Hemoglobin 12.2 g/dL (14.0-18.0); Immature Granulocyte Absolute 0.05 K/mm3 (0.00-0.031); Immature Granulocyte Percent A 0.5 % (0-0.5); Lymphocytes Absolute Auto 2.32 K/mm3 (0.9-3.2); Lymphocytes Percent Auto 24.5 % (18.3-44.2); Mean Corpuscular HGB Conc 29.5 g/dl (32-36); Mean Corpuscular Hemoglobin 24.8 pg (26-34); Mean Corpuscular Volume 83.9 fl (80-100); Mean Platelet Volume 9.7 fl (7.4-10.4); Monocytes Absolute Auto 1.2 K/mm3 (0.1-0.6); Neutrophils Absolute Auto 5.7 K/mm3 (1.3-6.7); Neutrophils Percent Auto 60.2 % (45.5-73.1); Platelet Count Result 294 k/mm3 (150-375); Potassium 3.6 mmol/L (3.4-5.0); Red Blood Count 4.92 M/mm3 (4.6-6.20); Red Cell Distribution Width 14.9 % (11.5-14.5); Sodium 136 mmol/L (137-145); White Blood Count 9.5 K/mm3 (4.5-10.0)
[2024-10-10 10:09] LABS: Platelet Estimate Adequate (Adequate)
[2024-10-10 10:10] LABS: Anisocytosis 1+; Hypochromasia 1+
[2024-10-10 12:18] LABS: Schistocytes None Seen
--- NOTE | 2024-10-10 14:12 | P.PNIM_ITS ---
Progress Note: A&P Assessment and Plan (1) Physical deconditioning: Code(s): R53.81 - Other malaise Status: Acute Assessment and Plan: Patient endorsing increased weakness and daughter feels he is too great of a fall risk to return home. - UA nonconcerning for infection - Viral panel: covid positive - Head CT: No acute intracranial hemorrhage or suspicious mass effect. - Chest XR: No focal infiltrate or effusion. - PT/OT (2) Atrial fibrillation with RVR: Code(s): I48.91 - Unspecified atrial fibrillation Status: Acute Assessment and Plan: Significant ER vitals included heart rate of 102 irregular, eventually increasing to 140 transiently. - EKG: Afib HR 90 - s/p cardioversion in December 2023 with reversion - Continue metoprolol 25 mg BID and amiodarone 100 mg daily - Anticoagulation: Eliquis 5 mg BID - Tele 10/09: Remains in afib with regular rate. 10/10: Has converted back to sinus rhythm. Per cardiology, Dr. Stark no new interventions need to be done at this time. (3) Shortness of breath: Code(s): R06.02 - Shortness of breath Status: Resolved Assessment and Plan: Likely either due to tachyarrhythmia induced cardiomyopathy or COVID - Remains on room air - Covid positive, does not meet remdesivir criteria - Chest XR: No focal infiltrate or effusion. - Given Tessalon Perles - Lasix 20 mg daily started, given another 40 mg lasix IV x1 (4) Leg swelling: Code(s): M79.89 - Other specified soft tissue disorders Status: Acute Assessment and Plan: Bilateral lower extremity 1+ pitting edema - Lasix 40 mg IV x1 in the ED - Lasix 20 mg daily started, given another 40 mg lasix IV x1 - Echo: LVEF 55-60% - Venous dopplers negative for DVT (5) COVID-19: Code(s): U07.1 - COVID-19 Status: Acute Assessment and Plan: Place in COVID19 isolation precautions, cardiac monitoring, and continuous pulse ox Monitor serum electrolytes, CRP, Lactic acid, troponin, CBC, WBC, temperature curve and follow cultures Oxygen via NC; wean as tolerated. Keep spO2 greater than 91% Pt is not a candidate for Remdesivir and Dexamethasone as they remain on room air (6) Obstructive sleep apnea on CPAP: Code(s): G47.33 - Obstructive sleep apnea (adult) (pediatric); Z99.89 - Dependence on other enabling machines and devices Status: Acute Assessment and Plan: Continue CPAP Time Spent With Patient Time with patient: 25 - 35 minutes Subjective Date/time seen: 10/10/24 14:12 Interval history: 79-year-old male past medical history obesity, MELANIE compliant with C PAP, prior tobacco abuse, COPD, history of right lower extremity DVT, depression, migraines, paroxysmal atrial fibrillation on Eliquis and amiodarone s/p CV with reversion, CKD stage IIIA chronic hypertension, history of renal cell carcinoma status post nephrectomy, history of colon cancer, BPH status post TURP x2, history of prostate and bladder cancer who presents to the hospital for multiple complaints. Patient is pleasant sitting up in his chair. He continues to endorse swelling to his lower extremities and orthopnea. He worked with therapy today and continues to feel weak. He has no other complaints denying chest pain, palpitations, nausea/vomiting and abdominal pain. Review of Systems Review of Systems: All systems reviewed & are unremarkable except as noted in HPI and below Exam Narrative: AF HR 60 RR 16 SPO2 94 BP 129/60 General: male in no acute respiratory distress who is nontoxic appearing, lying semi recumbent in bed. HEENT: Normocephalic. Atraumatic. Extraocular movement intact. Sclera clear and anicteric. No facial asymmetry. Chest: Lungs are clear to auscultation bilaterally. No wheezes or crackles. CV: Heart was regular rate and rhythm. S1/S2. No murmurs, gallops, or rubs. Abd: Abdomen was soft. Nontender. Nondistended. Positive bowel sounds. Ext: No clubbing, cyanosis. 1+ pitting edema to the mid pretibial region. 2+ DP pulses bilaterally. Neuro: Patient is alert and oriented x4. Speech is clear. Objective Data Vital Signs Vital Signs: Vital Signs - 24 hr 10/09/24 16:00 10/09/24 19:59 10/09/24 20:00 Temperature 98.5 F Pulse Rate 65 69 73 Respiratory Rate 18 18 Blood Pressure 147/69 H Pulse Oximetry 98 97 Oxygen Delivery Room Air 10/09/24 20:00 10/09/24 20:44 10/09/24 20:55 Temperature Pulse Rate 63 65 73 Respiratory Rate Blood Pressure Pulse Oximetry 97 Oxygen Delivery Autopap 10/10/24 00:00 10/10/24 02:30 10/10/24 04:00 Temperature Pulse Rate 61 70 66 Respiratory Rate Blood Pressure Pulse Oximetry 95 Oxygen Delivery Autopap 10/10/24 06:00 10/10/24 08:00 10/10/24 08:00 Temperature 98.3 F Pulse Rate 58 L 63 Respiratory Rate 16 Blood Pressure 129/60 Pulse Oximetry 94 94 Oxygen Delivery Room Air 10/10/24 08:13 10/10/24 08:13 10/10/24 12:00 Temperature Pulse Rate 60 60 60 Respiratory Rate Blood Pressure Pulse Oximetry Oxygen Delivery Intake/Output Intake/Output: Intake & Output 10/07/24 10/08/24 10/09/24 10/10/24 23:59 23:59 23:59 23:59 Intake Total 1170 1700 Output Total 650 600 Balance 520 1100 Meds/Results Medications: Active Medications Generic Name Dose Route Start Last Admin Trade Name Freq PRN Reason Stop Dose Admin Acetaminophen 650 mg 10/08/24 23:46 Acetaminophen 325 Mg Tablet PO Q4H PRN Mild Pain (1-3) or Fever Amiodarone HCl 100 mg 10/09/24 08:00 10/10/24 08:13 Amiodarone Hcl 100 Mg Tablet PO 100 mg DAILY@0800 TEJAS Administration Apixaban 5 mg 10/09/24 09:00 10/10/24 08:13 Apixaban 5 Mg Tablet PO 5 mg Q12HR TEJAS Administration Cyclosporine 1 drop 10/09/24 09:00 10/10/24 08:13 Cyclosporine 0.4 Ml Ophth Solution EACH EYE 1 drop BID TEJAS Administration Fenofibrate 48 mg 10/09/24 09:00 10/10/24 08:13 Fenofibrate,Micronized 48 Mg Tablet PO 48 mg QAM TEJAS Administration Furosemide 20 mg 10/10/24 09:00 10/10/24 08:13 Furosemide 20 Mg Tablet PO 20 mg DAILY TEJAS Administration Gabapentin 100 mg 10/09/24 09:00 10/10/24 08:13 Gabapentin 100 Mg Capsule PO 100 mg BID TEJAS Administration Melatonin 10 mg 10/09/24 02:39 10/09/24 20:49 Melatonin 5 Mg Tablet PO 10 mg HS PRN Administration Insomnia Melatonin 5 mg 02/11/25 03:18 10/10/24 03:47 Melatonin 5 Mg Tablet PO 5 mg HS PRN Administration Insomnia Metoprolol Tartrate 25 mg 10/09/24 00:45 10/10/24 08:13 Metoprolol Tartrate 25 Mg Tablet PO 25 mg Q12HR TEJAS Administration Ondansetron HCl 4 mg 10/08/24 23:46 Ondansetron Inj 4 Mg/2 Ml Vial IV PUSH Q4H PRN Nausea Radiology Results: ITS Impressions Chest X-Ray 10/08/24 20:34 IMPRESSION: No focal infiltrate or effusion. Head CT 10/08/24 21:51 Impression: No acute intracranial hemorrhage or suspicious mass effect. Venous Doppler Study 10/09/24 10:28 IMPRESSION: 1. No deep venous thrombosis in either lower limb. Labs Labs: Laboratory Results - last 24 hr 10/10/24 10/10/24 10/10/24 08:20 08:20 08:20 WBC 9.5 RBC 4.92 Hgb 12.2 L Hct 41.3 L MCV 83.9 MCH 24.8 L MCHC 29.5 L RDW 14.9 H Plt Count 294 MPV 9.7 Immature Gran % (Auto) 0.5 Neut % (Auto) 60.2 Lymph % (Auto) 24.5 [place] % (Auto) 13.0 H Eos % (Auto) 0.7 Baso % (Auto) 1.1 Lymph # (Auto) 2.32 [place] # (Auto) 1.2 H Eos # (Auto) 0.1 Baso # (Auto) 0.1 Abs Immat Gran (auto) 0.05 H Absolute Neuts (auto) 5.7 Absolute Nucleated RBC 0.000 Nucleated RBC % 0.0 Platelet Estimate Adequate Hypochromasia 1+ Anisocytosis 1+ Schistocytes None seen Sodium 136 L 136 L Potassium 3.5 3.6 Chloride 95 L Carbon Dioxide Anion Gap BUN Creatinine Estim Creat Clear Calc Estimated GFR Glucose Calcium Magnesium Total Bilirubin AST ALT Alkaline Phosphatase Total Protein Albumin 10/10/24 10/10/24 10/10/24 08:20 08:20 08:20 WBC RBC Hgb Hct MCV MCH MCHC RDW Plt Count MPV Immature Gran % (Auto) Neut % (Auto) Lymph % (Auto) [place] % (Auto) Eos % (Auto) Baso % (Auto) Lymph # (Auto) [place] # (Auto) Eos # (Auto) Baso # (Auto) Abs Immat Gran (auto) Absolute Neuts (auto) Absolute Nucleated RBC Nucleated RBC % Platelet Estimate Hypochromasia Anisocytosis Schistocytes Sodium Potassium Chloride 95 L Carbon Dioxide 32 H 34 H Anion Gap 9 7 BUN 17 Creatinine Estim Creat Clear Calc Estimated GFR Glucose Calcium Magnesium Total Bilirubin AST ALT Alkaline Phosphatase Total Protein Albumin 10/10/24 10/10/24 10/10/24 08:20 08:20 08:20 WBC RBC Hgb Hct MCV MCH MCHC RDW Plt Count MPV Immature Gran % (Auto) Neut % (Auto) Lymph % (Auto) [place] % (Auto) Eos % (Auto) Baso % (Auto) Lymph # (Auto) [place] # (Auto) Eos # (Auto) Baso # (Auto) Abs Immat Gran (auto) Absolute Neuts (auto) Absolute Nucleated RBC Nucleated RBC % Platelet Estimate Hypochromasia Anisocytosis Schistocytes Sodium Potassium Chloride Carbon Dioxide Anion Gap BUN 17 Creatinine 1.42 H 1.45 H Estim Creat Clear Calc 54 53 Estimated GFR 48 L Glucose Calcium Magnesium Total Bilirubin AST ALT Alkaline Phosphatase Total Protein Albumin 10/10/24 10/10/24 10/10/24 08:20 08:20 08:20 WBC RBC Hgb Hct MCV MCH MCHC RDW Plt Count MPV Immature Gran % (Auto) Neut % (Auto) Lymph % (Auto) [place] % (Auto) Eos % (Auto) Baso % (Auto) Lymph # (Auto) [place] # (Auto) Eos # (Auto) Baso # (Auto) Abs Immat Gran (auto) Absolute Neuts (auto) Absolute Nucleated RBC Nucleated RBC % Platelet Estimate Hypochromasia Anisocytosis Schistocytes Sodium Potassium Chloride Carbon Dioxide Anion Gap BUN Creatinine Estim Creat Clear Calc Estimated GFR 47 L Glucose 108 108 Calcium 9.0 9.0 Magnesium 1.9 Total Bilirubin 0.5 AST 21 ALT 20 Alkaline Phosphatase 84 Total Protein 7.0 Albumin 4.0 Quality VTE Prophylaxis VTE prophylaxis: pharmacologic ordered
[2024-10-10] MEDS: MELATONIN 5 MG TABLET 10 MG PO (20:23)
[2024-10-11] VITALS (13 sets, daily range): BP systolic 148–152; BP diastolic 63–72; PULSE 58–89; RESP 16–20; TEMP 36.4–36.6; O2SAT 97–100
[2024-10-11 07:54] LABS: Hematocrit 37.9 % (42.0-52.0); Hemoglobin 11.4 g/dL (14.0-18.0); Mean Corpuscular HGB Conc 30.1 g/dl (32-36); Mean Corpuscular Hemoglobin 25.4 pg (26-34); Mean Corpuscular Volume 84.6 fl (80-100); Mean Platelet Volume 9.8 fl (7.4-10.4); Platelet Count Result 264 k/mm3 (150-375); Red Blood Count 4.48 M/mm3 (4.6-6.20); Red Cell Distribution Width 14.9 % (11.5-14.5); White Blood Count 7.5 K/mm3 (4.5-10.0)
[2024-10-11 08:05] LABS: Alanine Aminotransferase 17 U/L (6-50); Albumin Level 3.6 g/dL (3.5-5.1); Alkaline Phosphatase 73 U/L (38-126); Anion Gap 6 mmol/L (4-12); Aspartate Amino Transferase 17 U/L (17-59); Bilirubin,Total 0.4 mg/dL (0.2-1.3); Blood Urea Nitrogen 19 mg/dL (9-20); Calcium 8.8 mg/dL (8.4-10.2); Carbon Dioxide 33 mmol/L (22-30); Chloride 96 mmol/L (98-107); Estimated CRCL calculation 55 ml/min; Estimated Glomerular Filt Rate 49; Glucose 111 mg/dL (65-110); Potassium 3.6 mmol/L (3.4-5.0); Sodium 135 mmol/L (137-145)
[2024-10-11] MEDS: cycloSPORINE 0.4 ML OPHTH SOLUTION 1 DROP EACH EYE ×2 (08:19→16:51)
[2024-10-11] MEDS: FUROSEMIDE INJ 40 MG/4 ML VIAL IV PUSH (08:20)
[2024-10-11] MEDS: AMIODARONE HCL 100 MG TABLET PO (08:20)
[2024-10-11] MEDS: GABAPENTIN 100 MG CAPSULE PO ×2 (08:21→16:51)
[2024-10-11] MEDS: METOPROLOL TARTRATE 25 MG TABLET PO ×2 (08:21→20:43)
[2024-10-11] MEDS: FENOFIBRATE,MICRONIZED 48 MG TABLET PO (08:21)
[2024-10-11] MEDS: APIXABAN 5 MG TABLET PO ×2 (08:21→20:42)
[2024-10-11] MEDS: BENZOCAINE/MENTHOL (*BKC) 18 EA LOZENGE 1 LOZENGE PO ×2 (10:41→16:51)
[2024-10-11] MEDS: DOCUSATE SODIUM 100 MG CAPSULE PO (10:41)
[2024-10-11] MEDS: polyethylene glycoL 3350 17 GM POWD.PACK PO (10:41)
--- NOTE | 2024-10-11 13:48 | PM.IMPN ---
Progress Note: A&P Assessment and Plan (1) Physical deconditioning: Code(s): R53.81 - Other malaise Status: Acute Assessment and Plan: Patient endorsing increased weakness and daughter feels he is too great of a fall risk to return home. - UA nonconcerning for infection - Viral panel: covid positive - Head CT: No acute intracranial hemorrhage or suspicious mass effect. - Chest XR: No focal infiltrate or effusion. -continue to work with PT/OT (2) Atrial fibrillation with RVR: Code(s): I48.91 - Unspecified atrial fibrillation Status: Acute Assessment and Plan: Significant ER vitals included heart rate of 102 irregular, eventually increasing to 140 transiently. - EKG: Afib HR 90 - s/p cardioversion in December 2023 with reversion - Continue metoprolol 25 mg BID and amiodarone 100 mg daily - Anticoagulation: Eliquis 5 mg BID - Tele 10/09: Remains in afib with regular rate. 10/10: Has converted back to sinus rhythm. Per cardiology, Dr. Stark no new interventions need to be done at this time. 10/12- stable (3) Shortness of breath: Code(s): R06.02 - Shortness of breath Status: Resolved Assessment and Plan: Likely either due to tachyarrhythmia induced cardiomyopathy or COVID - Remains on room air - Covid positive, does not meet remdesivir criteria - Chest XR: No focal infiltrate or effusion. - continue Tessalon Perles - Lasix 20 mg daily started, given another 40 mg lasix IV x1 (4) Leg swelling: Code(s): M79.89 - Other specified soft tissue disorders Status: Acute Assessment and Plan: Bilateral lower extremity 1+ pitting edema - Lasix 40 mg IV x1 in the ED - Lasix 20 mg daily started, given another 40 mg lasix IV x1 - Echo: LVEF 55-60% - Venous dopplers negative for DVT (5) COVID-19: Code(s): U07.1 - COVID-19 Status: Acute Assessment and Plan: Place in COVID19 isolation precautions, cardiac monitoring, and continuous pulse ox Monitor serum electrolytes, CRP, Lactic acid, troponin, CBC, WBC, temperature curve and follow cultures Oxygen via NC; wean as tolerated. Keep spO2 greater than 91% Pt is not a candidate for Remdesivir and Dexamethasone as they remain on room air (6) Obstructive sleep apnea on CPAP: Code(s): G47.33 - Obstructive sleep apnea (adult) (pediatric); Z99.89 - Dependence on other enabling machines and devices Status: Acute Assessment and Plan: Continue CPAP Time Spent With Patient Time with patient: 25 - 35 minutes Subjective Date/time seen: 10/11/24 13:48 Interval history: 79-year-old male past medical history obesity, MELANIE compliant with CPAP, prior tobacco abuse, COPD, history of right lower extremity DVT, depression, migraines, paroxysmal atrial fibrillation on Eliquis and amiodarone s/p CV with reversion, CKD stage IIIA chronic hypertension, history of renal cell carcinoma status post nephrectomy, history of colon cancer, BPH status post TURP x2, history of prostate and bladder cancer who presents to the hospital for multiple complaints. Still c/o swelling to his lower extremities and orthopnea. Working with therapy and continues to feel weak. No other complaints - no chest pain, palpitations, nausea/vomiting and abdominal pain. Review of Systems Review of Systems: All systems reviewed & are unremarkable except as noted in HPI and below Exam Narrative: AF HR 60 RR 16 SPO2 94 BP 129/60 General: male in no acute respiratory distress who is nontoxic appearing, lying semi recumbent in bed. HEENT: Normocephalic. Atraumatic. Extraocular movement intact. Sclera clear and anicteric. No facial asymmetry. Chest: Lungs are clear to auscultation bilaterally. No wheezes or crackles. CV: Heart was regular rate and rhythm. S1/S2. No murmurs, gallops, or rubs. Abd: Abdomen was soft. Nontender. Nondistended. Positive bowel sounds. Ext: No clubbing, cyanosis. 1+ pitting edema to the mid pretibial region. 2+ DP pulses bilaterally. Neuro: Patient is alert and oriented x4. Speech is clear. Const: General: comfortable and no acute distress Eyes: Pupils: Equal, round and reactive pupils present Resp: Effort & Inspection: normal respiratory effort Auscultation: clear to auscultation bilaterally Cardio: Rate: tachycardic Rhythm: abnormal rhythm Neuro: Cranial nerves: Yes Equal, round and reactive pupils present Extrem: General: edema Objective Data Vital Signs Vital Signs: Vital Signs - 24 hr 10/10/24 14:00 10/10/24 14:55 10/10/24 16:00 Temperature 97.4 F L Pulse Rate 63 60 Respiratory Rate 16 Blood Pressure 122/70 Pulse Oximetry 92 Oxygen Delivery Room Air 10/10/24 20:00 10/10/24 20:00 10/10/24 20:22 Temperature 97.1 F L Pulse Rate 73 67 Respiratory Rate 22 H Blood Pressure 158/72 H Pulse Oximetry 97 Oxygen Delivery Room Air 10/11/24 00:00 10/11/24 02:17 10/11/24 04:00 Temperature Pulse Rate 60 61 Respiratory Rate Blood Pressure Pulse Oximetry Oxygen Delivery Autopap 10/11/24 06:00 10/11/24 08:00 10/11/24 08:00 Temperature 97.8 F Pulse Rate 64 61 Respiratory Rate 20 Blood Pressure 152/72 H Pulse Oximetry 97 97 Oxygen Delivery Room Air 10/11/24 08:20 10/11/24 08:21 10/11/24 12:00 Temperature Pulse Rate 84 80 59 L Respiratory Rate Blood Pressure Pulse Oximetry Oxygen Delivery Intake/Output Intake/Output: Intake & Output 10/08/24 10/09/24 10/10/24 10/11/24 23:59 23:59 23:59 23:59 Intake Total 1170 2700 1310 Output Total 650 1800 400 Balance 520 900 910 Meds/Results Medications: Active Medications Generic Name Dose Route Start Last Admin Trade Name Freq PRN Reason Stop Dose Admin Acetaminophen 650 mg 10/08/24 23:46 Acetaminophen 325 Mg Tablet PO Q4H PRN Mild Pain (1-3) or Fever Amiodarone HCl 100 mg 10/09/24 08:00 10/11/24 08:20 Amiodarone Hcl 100 Mg Tablet PO 100 mg DAILY@0800 TEJAS Administration Apixaban 5 mg 10/09/24 09:00 10/11/24 08:21 Apixaban 5 Mg Tablet PO 5 mg Q12HR TEJAS Administration Benzocaine 1 lozenge 10/11/24 10:23 10/11/24 10:41 Benzocaine/Menthol (*Bkc) 18 Ea Lozenge PO 1 lozenge PRN PRN Administration Sore Throat Cyclosporine 1 drop 10/09/24 09:00 10/11/24 08:19 Cyclosporine 0.4 Ml Ophth Solution EACH EYE 1 drop BID TEJAS Administration Docusate Sodium 100 mg 10/11/24 10:23 10/11/24 10:41 Docusate Sodium 100 Mg Capsule PO 100 mg Q12H PRN Administration Constipation Fenofibrate 48 mg 10/09/24 09:00 10/11/24 08:21 Fenofibrate,Micronized 48 Mg Tablet PO 48 mg QAM TEJAS Administration Gabapentin 100 mg 10/09/24 09:00 10/11/24 08:21 Gabapentin 100 Mg Capsule PO 100 mg BID TEJAS Administration Melatonin 10 mg 10/09/24 02:39 10/10/24 20:23 Melatonin 5 Mg Tablet PO 10 mg HS PRN Administration Insomnia Melatonin 5 mg 10/10/24 03:18 10/10/24 03:47 Melatonin 5 Mg Tablet PO 5 mg HS PRN Administration Insomnia Metoprolol Tartrate 25 mg 10/09/24 00:45 10/11/24 08:21 Metoprolol Tartrate 25 Mg Tablet PO 25 mg Q12HR TEJAS Administration Ondansetron HCl 4 mg 10/08/24 23:46 Ondansetron Inj 4 Mg/2 Ml Vial IV PUSH Q4H PRN Nausea Polyethylene Glycol 17 gm 10/11/24 10:23 10/11/24 10:41 Polyethylene Glycol 3350 17 Gm Powd.Pack PO 17 gm QAM PRN Administration Constipation Radiology Results: ITS Impressions Chest X-Ray 10/08/24 20:34 IMPRESSION: No focal infiltrate or effusion. Head CT 10/08/24 21:51 Impression: No acute intracranial hemorrhage or suspicious mass effect. Venous Doppler Study 10/09/24 10:28 IMPRESSION: 1. No deep venous thrombosis in either lower limb. Labs Labs: Laboratory Results - last 24 hr 10/11/24 07:14 WBC 7.5 RBC 4.48 L Hgb 11.4 L Hct 37.9 L MCV 84.6 MCH 25.4 L MCHC 30.1 L RDW 14.9 H Plt Count 264 MPV 9.8 Sodium 135 L Potassium 3.6 Chloride 96 L Carbon Dioxide 33 H Anion Gap 6 BUN 19 Creatinine 1.38 H Estim Creat Clear Calc 55 Estimated GFR 49 L Glucose 111 H Calcium 8.8 Total Bilirubin 0.4 AST 17 ALT 17 Alkaline Phosphatase 73 Total Protein 7.0 Albumin 3.6 Quality VTE Prophylaxis VTE prophylaxis: pharmacologic ordered
[2024-10-11 21:22] LABS: Glucose Point of Care 160 mg/dl (65-105)
[2024-10-12] MEDS: MELATONIN 5 MG TABLET 10 MG PO
[2024-10-12 00:03] VITALS: PULSE 58
[2024-10-12 04:02] VITALS: PULSE 59
[2024-10-12 05:41] VITALS: BP 149/69; PULSE 64; RESP 16; TEMP 36.6; O2SAT 100
[2024-10-12 06:30] LABS: Hematocrit 37.5 % (42.0-52.0); Hemoglobin 11.2 g/dL (14.0-18.0); Mean Corpuscular HGB Conc 29.9 g/dl (32-36); Mean Corpuscular Hemoglobin 25.3 pg (26-34); Mean Corpuscular Volume 84.8 fl (80-100); Mean Platelet Volume 9.7 fl (7.4-10.4); Platelet Count Result 268 k/mm3 (150-375); Red Blood Count 4.42 M/mm3 (4.6-6.20); Red Cell Distribution Width 14.8 % (11.5-14.5); White Blood Count 7.4 K/mm3 (4.5-10.0)
[2024-10-12 06:34] LABS: Alanine Aminotransferase 17 U/L (6-50); Albumin Level 3.5 g/dL (3.5-5.1); Alkaline Phosphatase 73 U/L (38-126); Anion Gap 6 mmol/L (4-12); Aspartate Amino Transferase 15 U/L (17-59); Bilirubin,Total 0.4 mg/dL (0.2-1.3); Blood Urea Nitrogen 19 mg/dL (9-20); Carbon Dioxide 34 mmol/L (22-30); Chloride 97 mmol/L (98-107); Estimated CRCL calculation 54 ml/min; Estimated Glomerular Filt Rate 48; Glucose 114 mg/dL (65-110); Potassium 3.6 mmol/L (3.4-5.0); Sodium 137 mmol/L (137-145)
[2024-10-12] MEDS: METOPROLOL TARTRATE 25 MG TABLET PO (08:46)
[2024-10-12] MEDS: FENOFIBRATE,MICRONIZED 48 MG TABLET PO (08:46)
[2024-10-12] MEDS: AMIODARONE HCL 100 MG TABLET PO (08:46)
[2024-10-12] MEDS: cycloSPORINE 0.4 ML OPHTH SOLUTION 1 DROP EACH EYE (08:46)
[2024-10-12] MEDS: GABAPENTIN 100 MG CAPSULE PO (08:46)
[2024-10-12] MEDS: APIXABAN 5 MG TABLET PO (08:46)
--- NOTE | 2024-10-12 13:38 | P.DS_ITS ---
DS: Admitting Diagnosis Discharge Date 10/12 Admitting Diagnosis cough DS: Discharge Diagnosis Discharge Diagnosis (1) Shortness of breath: Code(s): R06.02 - Shortness of breath Status: Resolved (2) Leg swelling: Code(s): M79.89 - Other specified soft tissue disorders Status: Acute (3) COVID-19: Code(s): U07.1 - COVID-19 Status: Acute (4) Obstructive sleep apnea on CPAP: Code(s): G47.33 - Obstructive sleep apnea (adult) (pediatric); Z99.89 - Dependence on other enabling machines and devices Status: Acute DS: Summary Hospital Course Hospital Course: 79-year-old male past medical history obesity, MELANIE compliant with CPAP, prior tobacco abuse, COPD, history of right lower extremity DVT, depression, migraines, paroxysmal atrial fibrillation on Eliquis and amiodarone s/p CV with reversion, CKD stage IIIA chronic hypertension, history of renal cell carcinoma status post nephrectomy, history of colon cancer, BPH status post TURP x2, history of prostate and bladder cancer who presents to the hospital for multiple complaints. Feeling well today-just about back to the baseline. Working with therapy and continues to feel weak. No other complaints - no chest pain, palpitations, na usea/vomiting and abdominal pain. Wants to go home. Will f/u with PCP. Several issues were addressed: # BLE Bilateral lower extremity 1+ pitting edema - Lasix 40 mg IV x1 in the ED - Lasix 20 mg daily started, given another 40 mg lasix IV x1 - Echo: LVEF 55-60% - Venous Doppler negative for DVT improved # Covid -Place in COVID19 isolation precautions, cardiac monitoring, and continuous pul se ox Monitor serum electrolytes, CRP, Lactic acid, troponin, CBC, WBC, temperature curve and follow cultures Oxygen via NC; wean as tolerated. Keep spO2 greater than 91% Pt is not a candidate for Remdesivir and Dexamethasone as they remain on room air #Afib Significant ER vitals included heart rate of 102 irregular, eventually increasing to 140 transiently. - EKG: Afib HR 90 - s/p cardioversion in December 2023 with reversion - Continue metoprolol 25 mg BID and amiodarone 100 mg daily - Anticoagulation: Eliquis 5 mg BID 10/10: Has converted back to sinus rhythm. Per cardiology, Dr. Stark no new interventions need to be done at this time. remained stable- will continue with regimen- no changes in medications Status at Discharge Functional status at discharge: independent ambulation Overall status at discharge: patient is progressing back to baseline Time Spent with Patient Time attestation: Total time spent providing and/or coordinating discharge services: Time spent: Greater than 30 minutes Exam Narrative: General: male in no acute respiratory distress who is nontoxic appearing, sitting up in the chair HEENT: Normocephalic. Atraumatic. Extraocular movement intact. Sclera clear and anicteric. No facial asymmetry. Chest: Lungs are clear to auscultation bilaterally. No wheezes or crackles. CV: Heart was regular rate and rhythm. S1/S2. No murmurs, gallops, or rubs. Abd: Abdomen was soft. Nontender. Nondistended. Positive bowel sounds. Ext: No clubbing, cyanosis. 1+ pitting edema to the mid pretibial region. 2+ DP pulses bilaterally. Neuro: Patient is alert and oriented x4. Speech is clear. Const: General: comfortable and no acute distress Eyes: Pupils: Equal, round and reactive pupils present Resp: Effort & Inspection: normal respiratory effort Auscultation: clear to auscultation bilaterally Cardio: Rate: tachycardic Rhythm: abnormal rhythm Neuro: Cranial nerves: Yes Equal, round and reactive pupils present Extrem: General: edema DS: Data Data Completed and Pending Labs on day of discharge: Labs from last 24 hours 10/12/24 10/11/24 05:53 20:10 WBC 7.4 RBC 4.42 L Hgb 11.2 L Hct 37.5 L MCV 84.8 MCH 25.3 L MCHC 29.9 L RDW 14.8 H Plt Count 268 MPV 9.7 Sodium 137 Potassium 3.6 Chloride 97 L Carbon Dioxide 34 H Anion Gap 6 BUN 19 Creatinine 1.42 H Estim Creat Clear Calc 54 Estimated GFR 48 L Glucose 114 H POC Capillary Glucose 160 H Calcium 9.0 Total Bilirubin 0.4 AST 15 L ALT 17 Alkaline Phosphatase 73 Total Protein 6.0 L Albumin 3.5 Discharge Plan Discharge Attending physician on discharge: Mina Damon Discharging Clinician: Emily Chaves Patient Disposition: Home, Self-Care Activity: as tolerated Diet: as tolerated and heart healthy Discharge Instructions: Discharge disposition: Patient admitted to the hospital for lower extremity edema, shortness of breath and physical deconditioning Shortness of breath likely related to patients atrial fibrillation and/or covid Patient remains in atrial fibrillation at this time with stable heart rates Continue home medications as prescribed Maintain a cardiac diet, 2 g sodium, do not over hydrate Remain active Monitor urine output Daily weights, if you gain more than 3 lb within 1 day or 5 lb in 1 week notify your primary care provider Monitor blood pressures Take caution while standing, rising, or moving Change positions slowly taking a break between each position change If you standing feel dizzy sit back down and take a break Encouraged to continue with yearly vaccinations Return to the emergency department if he developed sudden shortness of breath, chest pain, nausea, vomiting, upset stomach or intractable diarrhea Return to the emergency department if you develop fever greater than 101.5 Follow-up with the primary care physician within 1-2 weeks Thank you for [place] [facility] for your healthcare needs Patient Instructions: Antibiotic Form Patient Language: Amharic Stand Alone Forms: General Discharge Information Follow-up/Referrals: Aj Tejeda MD [Primary Care Provider] - 2 Weeks Discharge Medications: New amiodarone [Pacerone] 200 mg Tablet 100 mg PO DAILY@0800 Qty: 90 0RF Continued Stiolto Respimat 2.5-2.5 mcg/actuation mist 2 puff inhalation DAILY Qty: 3 2RF gabapentin 100 mg capsule 100 mg PO BID Qty: 180 3RF ascorbic acid (vitamin C) 1,000 mg tablet 1,000 mg PO DAILY furosemide [Lasix] 20 mg tablet 20 mg PO PRN PRN (Reason: Edema) Eliquis 5 mg Tablet 5 mg PO Q12HR Qty: 60 0RF cyclosporine 0.05 % dropperette 1 drp EACH EYE BID melatonin 10 mg Capsule 10 mg PO HS PRN (Reason: Insomnia) Glucosamine Chondroitin 550-30-1 mg Capsule 2 cap PO DAILY cholecalciferol (vitamin D3) 125 mcg (5,000 unit) Tablet 125 mcg PO DAILY turmeric 400 mg Capsule 400 mg PO DAILY hydrocodone-acetaminophen 5-325 mg tablet 1 - 2 tablet PO Q6H PRN (Reason: pain) Qty: 20 0RF docusate sodium [Colace] 100 mg capsule 100 mg PO .prn albuterol sulfate 90 mcg/actuation HFA aerosol inhaler 1 - 2 inh inhalation Q4-6H PRN (Reason: sob/wheezing) fenofibrate 54 mg tablet 54 mg PO DAILY Qty: 90 2RF potassium chloride 10 mEq tablet extended release 10 meq PO DAILY Qty: 90 2RF Discontinued amiodarone 200 mg tablet 100 mg PO DAILY Other Ambulatory Orders: Basic Metabolic Panel (Routine) Timeframe: 1 Week Location: Determined by Patient Ordered By: Emily Chaves Date of admission: 10/09/24 10:56 Primary Care Provider: Aj Tejeda Admitting Provider: Selene Vernon Attending physician on admission: Selene Vernon Condition: Stable Hospitalist MIPS Heart Failure (Exclusion) Patient has history of Heart Transplant or Left Ventricular Assistive Device?: No IF YES, STOP HERE Heart Failure (Qualifier) Patient has current or prior documentation of LVEF less than or equal to 40%, or mod/servere depressed LVSF?: No IF NO, STOP HERE
== END 2024-10-12 14:40 | disposition home or self-care (01) | DRG 178 ==
LOC: ANHED 23:57 → ANH3MEDSUR 10-09 00:52
PROVIDERS: Student in an Organized Health Care Education/Training Program; Admitting Provider General Practice; Emergency Provider Student in an Organized Health Care Education/Training Program; PCP Family Medicine; Visit Provider Nurse Practitioner
DX: U07.1 COVID-19 (principal); Z68.41 Body mass index [BMI] 40.0-44.9, adult; G47.33 Obstructive sleep apnea (adult) (pediatric); M79.89 Other specified soft tissue disorders; J44.9 Chronic obstructive pulmonary disease, unspecified; E66.9 Obesity, unspecified; I48.0 Paroxysmal atrial fibrillation; I12.9 Hypertensive chronic kidney disease with stage 1 through stage 4 chronic kidney disease, or unspecified chronic kidney disease; N18.31 Chronic kidney disease, stage 3a; N40.0 Benign prostatic hyperplasia without lower urinary tract symptoms; Z91.81 History of falling; D64.9 Anemia, unspecified; Z86.718 Personal history of other venous thrombosis and embolism; Z87.891 Personal history of nicotine dependence; Z79.01 Long term (current) use of anticoagulants; Z85.528 Personal history of other malignant neoplasm of kidney; Z90.5 Acquired absence of kidney; Z85.038 Personal history of other malignant neoplasm of large intestine; Z85.46 Personal history of malignant neoplasm of prostate; Z85.51 Personal history of malignant neoplasm of bladder; Z96.643 Presence of artificial hip joint, bilateral; Z90.49 Acquired absence of other specified parts of digestive tract
CPT/HCPCS: 36415; 70450; 71046; 80048; 80053; 80143; 80179; 81001; 82077; 82140; 82550; 82948; 83735; 83880; 84443; 84484; 85025; 85027; 87637; 93005; 93306; 93970; 96374; 96375; 97110; 97116; 97161; 97165; 97535; 99285; A9270; G0378; J1940; Q9957

== ENCOUNTER 2024-10-25 15:48 | Outpatient (CLI) | payer MEDICARE, OTHER, SELFPAY ==
[2024-10-25 16:57] LABS: Anion Gap 11 mmol/L (4-12); Blood Urea Nitrogen 16 mg/dL (9-20); Carbon Dioxide 27 mmol/L (22-30); Chloride 103 mmol/L (98-107); Estimated Glomerular Filt Rate 50; Glucose 99 mg/dL (65-110); Potassium 3.8 mmol/L (3.4-5.0); Sodium 141 mmol/L (137-145)
--- OUTSIDE RECORDS SUMMARY | 2024-10-25 18:11 | XMS_ITS | Clinical Summary ---
Author Organization [facility] Address [address] [place] [address] Care Team Providers Care Pantry Goods Maker Name Role Phone Unavailable Primary Care Provider [...]
--- OUTSIDE RECORDS SUMMARY | 2024-10-25 18:11 | XMS_ITS | Encounter Summary ---
Author Organization [facility] Address [address] [facility] [address] [place] [address] Care Team Providers Care Tension Worker Name Role Phone Addi Heredia MD Primary Care Provider + [phone] Primo Heredia Primary Care Provider [phone] Addi Heredia MD Primary Care Provider + [phone] Miscellaneous, Not In File Primary Care Provider Unavailable Addi Heredia MD Primary Care Provider + [phone] Tremayne Del Real MD Primary Care Provider [...] Addi Heredia MD Primary Care Provider + [phone] Tremayne Del Real MD Primary Care Provider Addi Heredia MD Primary Care Provider + [phone] Addi Heredia MD Primary Care Provider + [phone] Tremayne Del Real MD Primary Care Provider Addi Heredia MD Primary Care Provider + [phone] Addi Heredia MD Primary Care Provider + [phone] Tremayne Del Real MD Primary Care Provider Addi Heredia MD Primary Care Provider + [phone] Addi Heredia MD Primary Care Provider + [phone] Tremayne Del Real MD Primary Care Provider Addi Heredia MD Primary Care Provider + [phone] Tremayne Del Real MD Primary Care Provider Addi Heredia MD Primary Care Provider + [phone] Tremayne Del Real MD Primary Care Provider Addi Heredia MD Primary Care Provider + [phone] Addi Heredia MD Primary Care Provider + [phone] Tremayne Del Real MD Primary Care Provider Aj Tejeda MD Primary Care Provider Encounter Details Date Type Department Care Team (Late st Contact Info) Description 09/03/2016 Orders Only [facility] Provider, MD Rick [address] [place] [address] Social History Tobacco Use Types Packs/Day Years Used Date Smoking Tobacco: Never Alcohol Use Standard Drinks/Week Comments Yes 0 (1 standard drink = 0.6 oz pur e alcohol) Sex and Gender Information Value Date Recorded Sex Assigned at Not on file 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 Gender Identity Male 04/01/2020 9:43 AM CDT [...] on filedocumented in this encounter Care Teams Tension Worker Relationship Specialty Start Date End Date Addi Heredia MD [address] [place] [address] PCP - General 11/27/16 01/18/17 Primo Heredia [address] [place], [place] [id number] PCP - General 10/14/16 11/26/16 Addi Heredia MD [address] [place] [address] PCP - General 08/06/16 10/13/16 Miscellaneous, Not In File PCP - General 01/19/17 Addi Heredia MD [address] [place], [place] [id number] PCP - General 01/20/17 04/21/17 Tremayne Del [...] - General 08/04/1708/08 Addi Heredia MD [address] [place] [address] PCP - General 08/09/17 08/09/17 Tremayne Del Real MD PCP - General 08/10/17 08/17/17 Addi Heredia MD [address] [place], [place] [id number] PCP - General 08/18/17 08/24/17 Addi Heredia MD [address] [place] [address] (Fax) PCP - General 08/25/17 08/25/17 Tremayne Del Real MD PCP - General 08/26/17 09/02/17 Addi Heredia MD [address] [place] [address] (Fax) PCP - General 09/03/17 09/06/17 Addi Heredia MD [address] [place] [address] (Fax) PCP - General 09/07/17 09/13/17 Tremayne Del Real MD PCP - General 09/14/17 09/15/17 Addi Heredia MD [address] [place] [address] (Fax) PCP - General 09/16/17 09/16/17 Addi Heredia MD [address] [place] [address] (Fax) PCP - General 09/17/17 09/29/17 Tremayne Del Real MD PCP - General 09/30/17 10/12/17 Addi Heredia MD [address] [place] [address] (Fax) PCP - General 10/13/17 10/14/17 Tremayne Del Real MD PCP - General 10/15/17 10/15/17 Addi Heredia MD [address] [place] [address] (Fax) PCP - General 10/16/17 10/20/17 Tremayne Del Real MD PCP - General 10/21/17 11/09/17 Addi Heredia MD [address] [place] [address] (Fax) PCP - General 11/10/17 11/10/17 Addi Heredia MD [address] [place] [address] (Fax) PCP - General 11/11/17 11/21/17 Tremayne Del Real MD PCP - General 11/22/17 10/05/18 Aj Tejeda MD [address] [place] [address] PCP - General 10/06/18 documented as of this encounter
--- OUTSIDE RECORDS SUMMARY | 2024-10-25 18:11 | XMS_ITS | Encounter Summary ---
Author Organization [facility] Address [address] [place] [address] Care Team Providers Care Assembly Lead Person Name Role Phone Aj Tejeda MD Primary Care Provider Reason for Visit * Reason Onset Date Comments Med Refill 11/24/2018 Encounter Details Date Type Department Care Team (Late st Contact Info) Description 11/24/2018 Telephone [facility] [place] [facility] [address] [facility] [address] [place] [address] [place] [address] [place] [address], [place] [address] Med Refill Social History Tobacco Use Types Packs/Day Years Used Date Smoking Tobacco: Former Smokeless Tobacco: Never Alcohol Use Standard Drinks/Week Comments Yes 6 (1 standard drink = 0.6 oz pur e alcohol) Sex and Gender Information Value Date Recorded Sex Assigned at Not on file 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
--- OUTSIDE RECORDS SUMMARY | 2024-10-25 18:11 | XMS_ITS | Clinical Summary ---
Author Organization [facility] Address [address] [place] [address] Care Team Providers Care Public Health Officer Name Role Phone Aj Tejeda MD Primary Care Provider Allergies Active Allergy Reactions Criticality Noted Date Comments Morphine Mental status changes,Other (See comments),Delusions Medium 04/06/2013 Reaction: Other Opioids - Morphine Analogues Mental status changes,Hallucinations ,Agitation Medium Opioids-Meperidine And Related Delusions Medium 04/06/2013 Medications gabapentin (NEURONTIN) 100 mg capsule Take 1 [...] mEq total) by mouth daily 3 Active cycloSPORINE (RESTASIS) 0.05 % ophthalmic emulsion Administer 1 drop into both eyes every 12 (twelve) hours 4 Active Stiolto Respimat 2.5-2.5 mcg/actuation inhaler 3 Active furosemide (LASIX) 20 mg tabletIndicati ons:Bilateral lower extremity edema TAKE 1 TABLET DAILY NEEDED FOR SWELLING 90 tablet 2 4 Active amiodarone (PACERONE) 100 mg tablet Take 1 tablet (100 mg total) by mouth daily Active Eliquis 5 mg tablet TAKE 1 TABLET TWICE A DAY 90 tablet 7 5 Active docusate sodium (DOK) 100 mg tabletIndicati ons:constipati on Take 1 tablet (100 mg total) by mouth 2 (two) times a day as needed for constipation Active melatonin 10 mg tablet Take 1 tablet (10 mg total) by mouth nightly as needed Active cholecalcifero l (VITAMIN D-3) 5,000 unit tablet Active turmeric root extract 500 mg capsule Take by mouth Active glucosam-johan- qfl5-T-wvsr-frieda sw 750 mg-644 mg- 30 mg-1 mg tablet Take by mouth Active ascorbic acid (vitamin C) 1,000 mg tablet take 1 by Oral route once 0 0 7 025 Discontin ued(Thera py completed ) finasteride (PROSCAR) 5 mg tablet Take 1 tablet (5 mg total) by mouth procurement internship before breakfast 025 Discontin ued(Thera py completed ) multivitamin tablet Take 1 tablet by mouth procurement internship before breakfast 025 Discontin ued(Thera py completed ) tamsulosin (FLOMAX) 0.4 mg extended release capsule Take 1 capsule (0.4 mg total) by mouth nightly 025 Discontin ued(Thera py completed ) omega 5-kzv-ebg-fish oil (Fish OiL) 1,000 mg (120 mg-180 mg) capsule Take 1 capsule (1,000 mg total) by mouth 2 (two) times a day 3 025 Discontin ued(Thera py completed ) Active Problems Problem Noted Date Diagnosed Date Chronic anticoagulation 05/30/2024 Atrial fibrillation (CMS/HCC) 04/21/2024 A-fib (CMS/HCC) 02/21/2024 Persistent atrial fibrillation 08/26/2023 Morbid obesity [...] Cephalalgia 05/26/2017 Neuralgia 05/25/2017 No diagnosis on [place] I 05/04/2017 Memory impairment 04/22/2017 Degeneration of [...] 06/22/2018 04/17/2022 Post-dural puncture headache 06/05/2017 02/01/2018 Encounters Date Type Department Care Team Description 10/24/2024 2:15 PM CERAMIC DESIGN ENGINEER Office Visit [facility] Cardiology at [address] [place] [address] Kobe Olivarez MD Persistent atrial fibrillation (HCC) (Primary Dx); Essential hypertension; Chronic anticoagulation; Bradycardia from Last 3 Months Immunizations Immunization Administration Dates Next Due TD Preservative Free [...] Relation Name Comments Cancer Brother 1 Michael Alons Cancer Brother 2 Yomi Alons Prostate cancer Brother 2 Yomi Bhatt Cancer, pros trejo; Cause of : Cancer, prostate Bleeding Disorder Brother 3 Jason Alons COPD Brother 3 Jason Alons Clotting disorder Brother 3 Jason Alons Hearing loss Brother 3 Jason Alons Kidney disease Brother 3 Jason Alons Obesity Brother 3 Jason Alons Cancer Father Ismael Alons Emphysema Father Ismael Alons Emphysema; Alzheimer's disease Mother Laura Causey Alzhei beatrice's disease; Cancer Sister Petty Ovalle Anesthesia problems Neg Hx Relation Name Status Comments Brother 1 Michael Alons Brother 2 Yomi Alons Brother 3 Jason Alons Father Ismael Alons (Age 90) Mother Laura Causey (Age 101) Sister Petty Ovalle Social History Tobacco Use Types Packs/Day Years Used Date Smoking Tobacco: Former Cigarettes 0 1950 - 2010 Smokeless Tobacco: Never Tobacco Cessation:Counseling Given: Not [...] on file Legal Sex Male 11:32 PM CERAMIC DESIGN ENGINEER Gender Identity Male 04/01/2020 9:43 AM CDT Sexual Orientation Straight 11/07/2018 9: 10 PM CDT Occupation Industry Job Start Date Job End Date retired Not on file Not on file Not on file Obstetrics History Last Filed Vital Signs Vital Sign Reading Time Taken Comments Blood Pressure 134/72 10/24/2024 2:30 PM CERAMIC DESIGN ENGINEER Pulse 80 10/24/2024 2:30 PM CERAMIC DESIGN ENGINEER Temperature 37 C (98.6 F) 02/21/2024 1:23 PM CDT Respiratory Rate 18 04/21/2024 8:50 AM CDT Oxygen Saturation 97% 10/24/2024 2:30 PM CERAMIC DESIGN ENGINEER Inhaled Oxygen Concentration - - Weight 140.6 kg (310 lb) 10/24/2024 2:30 PM CERAMIC DESIGN ENGINEER Height 188 cm (6' 2 ) 10/24/2024 2:30 PM CERAMIC DESIGN ENGINEER Body Mass Index 39.8 10/24/2024 2:30 PM CERAMIC DESIGN ENGINEER Plan of Treatment Health Maintenance Due Date Last Done Comments Albumin Creatinine Ratio, Urine 1943 Depression Screening 1943 Dilated Eye Exam 1943 Foot Exam 1943 Hepatitis B Screening 1961 Pneumococcal vaccine 65+ (1 of 2 - PCV) 1962 Abdominal Aortic Aneurysm (A AA) Screen 2008 Well Visit 65+ 2008 DTaP/Tdap/Td Vaccine (1 - Tdap) 05/09/2011 1 Zoster Vaccine (2 of 3) 07/18/2013 05/23/2013 Lipid Panel 10/31/2020 11/01/2019, 07/30, 06/11/2017 Covid-19 Vaccine ( season) 2024 09/19/2021, 11/23/2020, 10/26/2020 Influenza Vaccine (#1) 2024 09/19/2021 Hemoglobin A1C 08/19/2024 02/18/2024, 12/07/2018 eGFR 03/28/2025 [...] as needed Medical Devices Implanted Type Area Cnc Mill Set Up Operator Device Identifier Shelf Expiration Date Model / Serial / Lot [employer] Proclaim Elite 4.95cmx5.55cm 5 Implantable Pulse Tonic 3660 Contrlsys - [id number] Implanted:Qty: 1 on 05/14/2022 by Shawn Boyce MD PhD at [facility] Other - see comments N/A: Back [employer] 3660 CONTRLSYS / / Description:Pulse generator Spinal Cord Stimulator-06/2017 Implanted:07/30 by Lamonte Donahue MD (Quantity not on file) Spinal Cord Stimulator Back [employer] Description:Model name lead1 [id number] Serial [id number] Implanted date 08-09-17 NEVRO SPINAL CORD STIMULATOR Per the vendor, this patients device exceeds the allowed impedence to safely have an MRI without surgical replacement Hip Bilater al: Hip Description:Total hip replac ment x2 [facility] Vascade Mvp 6-12fr Venous Closure [id number] - [id number] Implanted:Qty: 1 on 02/21/2024 by Abhilash Smith MD at [facility] 11/07/2025 [id number]-[id number] / / [id number] [facility] [employer] Vascade Mvp 6-12fr Venous Closure [id number] - [id number] Implanted:Qty: 1 on 02/21/2024 by Abhilash Smith MD at [facility] 11/07/2025 [id number]-[id number] / / [id number] [facility] [employer] Vascade Mvp 6-12fr Venous Closure [id number] - [id number] Implanted:Qty: 1 on 02/21/2024 by Abhilash Smith MD at [facility] 11/07/2025 [id number]-10 [id number] / / [id number] A Procedures Procedure Name Priority Date/Time Associated [...] was last reviewed 2021. Testing performed by: [facility], [address] [place] [address], [place] [address] Blood 03/28/2024 11:2 5 AM CDT 03/28/2024 12:07 PM CDT Nereyda Ravi WARDSPERSON LAB BLOOD ORDERABLES Final Res ult Performing Organization Address [facility] Co de Phone Number BIPIN PERALTA [address] [place] [address] * (ABNORMAL) Hemoglobin A1c (02/18/2024 12:22 PM CDT) Hgb A1C 5.9(H) 4.0 - 5.6 % Estimated Average Glucose 123 mg/dL BIPIN PERALTA Comment: The ADA recommends reporting an estimated Average Glucose (eAG) with all Hemoglobin A1c results using the equation derived from a study of 507 normal and diabetic adults. Minority populations were underrepresented and children were not included. (Diabetes Care 31:6019-3197, 2008). The eAG is not equivalent to a fasting glucose. Blood 02/18/2024 12:2 2 PM CDT 02/18/2024 12:22 PM CDT Crystal Harrell WARDSPERSON LAB BLOOD ORDERABLES Final Res ult Performing Organization Address City/[facility]/ZIP Co de Phone Number BIPIN PERALTA [address] Department [place] [employer] [place] [address] * Lipid panel (11/01/2019) SCRIBED Cholesterol, Total 158 <200 EXTERNAL LAB SCRIBED HDL 22 >40 EXTERNAL LAB SCRIBED LDL 82 <100 EXTERNAL LAB SCRIBED Triglycerides 262 <150 EXTERNAL LAB Blood specimen (specimen) us Historical Provider LAB BLOOD ORDERABLES Edit ed Result - Final EXTERNAL LAB from Last 3 Months or Most Recently Relevant to Health Maintenance Insurance [employer] MEDICARE Hooked FOR LIFE MEDICARE MEDICARE [facility] Advance Directives For more information, please contact: [phone] * Full Code (Latest Code Status on File) Date Activated Date Inactivated Comments 07/14/2018 10:13 AM 07/14/2018 12:31 PM Care Teams Public Health Officer Relationship Specialty Start Date End Date Aj Tejeda MD [address] [facility] [address] [place] [id number] PCP - General 10/06/18
--- OUTSIDE RECORDS SUMMARY | 2024-10-25 18:11 | XMS_ITS | Referral Summary ---
Author Organization [facility] Address [address] [place] [address] Care Team Providers Care Cell Repairer Name Role Phone Aj Tejeda MD Primary Care Provider Encounters Date Type Department Care Team Description 10/24/2024 2:15 PM AFFILIATE MARKETING MANAGER Office Visit [facility] at [address] [place] [address] Kobe Olivarez MD Persistent atrial fibrillation (HCC) (Primary Dx); Essential hypertension; Chronic anticoagulation; Bradycardia from Last 3 Months Allergies Active Allergy Reactions Criticality Noted Date [...] mg capsule Take by mouth Active glucosam-johan- dwe5-Z-pxuw-frieda sw 750 mg-644 mg- 30 mg-1 mg tablet Take by mouth Active ascorbic acid (vitamin C) 1,000 mg tablet take 1 by Oral route once 0 0 7 025 Discontin ued(Thera py completed ) finasteride (PROSCAR) 5 mg tablet Take 1 tablet (5 mg total) by mouth travel freight and passenger agent before breakfast 025 Discontin ued(Thera py completed ) multivitamin tablet Take 1 tablet by mouth travel freight and passenger agent before breakfast 025 Discontin ued(Thera py completed ) tamsulosin (FLOMAX) 0.4 mg extended release capsule Take 1 capsule (0.4 mg total) by mouth nightly 025 Discontin ued(Thera py completed ) omega 8-tpd-jhx-fish oil (Fish OiL) 1,000 mg (120 mg-180 mg) capsule Take 1 capsule (1,000 mg total) by mouth 2 (two) times a day 3 025 Discontin ued(Thera py completed ) Active Problems Problem Noted Date Diagnosed Date Chronic anticoagulation 05/30/2024 Atrial fibrillation ([facility] 04/21/2024 A-fib ([facility]) 02/21/2024 Persistent atrial fibrillation 08/26/2023 Morbid obesity [...] Cephalalgia 05/26/2017 Neuralgia 05/25/2017 No diagnosis on [place] I 05/04/2017 Memory impairment 04/22/2017 Degeneration of [...] Date Resolved Date Failed spinal cord stimulator ([facility]) 04/03/2022 06/25/2022 Glucose intolerance 11/14/2018 11/15/19 19 Postlaminectomy syndrome of lumbar region 06/22/2018 04/17/2022 Post-dural puncture headache 06/05/2017 02/01/2018 Immunizations Immunization Administration Dates Next Due TD [...] on file Legal Sex Male 11:32 PM AFFILIATE MARKETING MANAGER Gender Identity Male 04/01/2020 9:43 AM CDT Sexual Orientation Straight 11/07/2018 9: 10 PM CDT Occupation Industry Job Start Date Job End Date retired Not on file Not on file Not on file Last Filed Vital Signs Vital Sign Reading Time Taken Comments Blood Pressure 134/72 10/24/2024 2:30 PM AFFILIATE MARKETING MANAGER Pulse 80 10/24/2024 2:30 PM AFFILIATE MARKETING MANAGER Temperature 37 C (98.6 F) 02/21/2024 1:23 PM CDT Respiratory Rate 18 04/21/2024 8:50 AM CDT Oxygen Saturation 97% 10/24/2024 2:30 PM AFFILIATE MARKETING MANAGER Inhaled Oxygen Concentration - - Weight 140.6 kg (310 lb) 10/24/2024 2:30 PM AFFILIATE MARKETING MANAGER Height 188 cm (6' 2 ) 10/24/2024 2:30 PM AFFILIATE MARKETING MANAGER Body Mass Index 39.8 10/24/2024 2:30 PM AFFILIATE MARKETING MANAGER Plan of Treatment Not on file Goals [...] as needed Medical Devices Implanted Type Area Sizing Machine And Drier Operator Device Identifier Shelf Expiration Date Model / Serial / Lot [employer] Proclaim Elite 4.95cmx5.55cm 5 Implantable Pulse Tonic 3660 Contrlsys - [id number] Implanted:Qty: 1 on 05/14/2022 by Shawn Boyce MD PhD at [facility] Other - see comments N/A: Back [employer] 3660 CONTRLSYS / / Description:Pulse generator Spinal Cord Stimulator-06/2017 Implanted:07/30 by Lamonte Donahue MD (Quantity not on file) Spinal Cord Stimulator Back [employer] Description:Model name lead1 [id number] Serial [id number] Implanted date 08-09-17 NEVRO SPINAL CORD STIMULATOR Per the vendor, this patients device exceeds the allowed impedence to safely have an MRI without surgical replacement Hip Bilater al: Hip Description:Total hip replac ment x2 [employer] Vascade Mvp 6-12fr Venous Closure [id number] - [id number] Implanted:Qty: 1 on 02/21/2024 by Abhilash Smith MD at [facility] 11/07/2025 800-612C-10 U / / [id number] A [employer] Vascade Mvp 6-12fr Venous Closure [id number] - [id number] Implanted:Qty: 1 on 02/21/2024 [facility] 11/07/2025 800-612C-10 U / / [id number] A [employer] Vascade Mvp 6-12fr Venous Closure [id number] - [id number] Implanted:Qty: 1 on 02/21/2024 by Abhilash Smith MD at [facility] 11/07/2025 800-612C-10 U / / [id number] Procedures Procedure Name Priority Date/Time Associated [...] performed by: [facility], [facility] [address], [place] [address] Blood 03/28/2024 11:2 5 AM CDT 03/28/2024 12:07 PM CDT us Nereyda Ravi NP LAB BLOOD ORDERABLES Final Res ult [facility] [address] [place] [address] * (ABNORMAL) Hemoglobin A1c (02/18/2024 12:22 PM CDT) Hgb A1C 5.9(H) 4.0 - 5.6 % Estimated Average Glucose 123 mg/dL BIPIN Comment: The ADA recommends reporting an estimated Average Glucose (eAG) with all Hemoglobin A1c results using the equation derived from a study of 507 normal and diabetic adults. Minority populations were underrepresented and children were not included. (Diabetes Care 31:6413-0691, 2008). The eAG is not equivalent to a fasting glucose. Blood 02/18/2024 12:2 2 PM CDT 02/18/2024 12:22 PM CDT Crystal Harrell NP LAB BLOOD ORDERABLES Final Res ult Performing Organization Address [facility] de Phone Number [facility] [address] [place] [address] * Lipid panel (11/01/2019) Pathologist [facility] SCRIBED Cholesterol, Total 158 <200 EXTERNAL LAB SCRIBED HDL 22 >40 EXTERNAL LAB SCRIBED LDL 82 <100 EXTERNAL LAB SCRIBED Triglycerides 262 <150 EXTERNAL LAB Blood specimen (specimen) Historical Provider LAB BLOOD ORDERABLES Edit ed Result - Final Performing Organization Address [facility] Co de Phone Number EXTERNAL LAB from Last 3 Months or Most Recently Relevant to Health Maintenance Insurance FIRE1 MEDICARE [facility] MEDICARE MEDICARE FOR LIFE Advance Directives For more information, please contact: [phone] * Full Code (Latest Code Status on File) Date Activated Date Inactivated Comments 07/14/2018 10:13 AM 07/14/2018 12:31 PM Care Teams Cell Repairer Relationship Specialty Start Date End Date Aj Tejeda MD [address] [facility] [address] [place], [place] [id number] PCP - General 10/06/18
--- OUTSIDE RECORDS SUMMARY | 2024-10-25 18:11 | XMS_ITS | Encounter Summary ---
Author Organization [facility] Healthcare Address [address] [place] [address] Care Team Providers Care Etl Tester Name Role Phone Aj Tejeda MD Primary Care Provider Reason for Referral * Consultation (Routine) - Authorized Specialty Diagnoses / Procedures Referred By Contac t Referred To Contact Cardiology Diagnoses Persistent atrial fibrillation (HCC) Bradycardia Kobe Olivarez MD [facility] [address]EN [address] [address] Phone: tel: fax: [facility] [address] [facility] [address] [address] Phone: tel: fax: Referral ID Status Reason Start Date Expiration Date Visits Requested Visits Authorized [id number] Authorized Specialty Services Required 10/24/2024 11/23/2025 1 1 Question Answer Please select the performing region: External Order [[id number]] To provider: JOEL SMITH [[id number]] # of visits: 1 DDED FILLER CUTTER OPERATOR Reason for Visit * Reason Comments Follow-up 7 mo follow up on DO E, MELANIE, alejandra, edema, HTN, a-flutter Encounter Details Date Type Department Care Team (Late st Contact Info) Description 10/24/2024 2:15 PM SHREDDED FILLER CUTTER OPERATOR Office Visit [facility] Medical Group Cardiology at [address] [place] [address] Kobe Olivarez MD [address] [phone] Persistent atrial fibrillation (HCC) (Primary Dx); Essential hypertension; Chronic anticoagulation; Bradycardia Social History Tobacco Use Types Packs/Day Years [...] on file Legal Sex Male 11:32 PM SHREDDED FILLER CUTTER OPERATOR Gender Identity Male 04/01/2020 9:43 AM CDT Sexual Orientation Straight 11/07/2018 9: 10 PM CDT Occupation Industry Job Start Date Job End Date retired Not on file Not on file Not on file documented as of this encounter Last Filed Vital Signs Vital Sign Reading Time Taken Comments Blood Pressure 134/72 10/24/2024 2:30 PM SHREDDED FILLER CUTTER OPERATOR Pulse 80 10/24/2024 2:30 PM SHREDDED FILLER CUTTER OPERATOR Temperature - - Respiratory Rate - - Oxygen Saturation 97% 10/24/2024 2:30 PM SHREDDED FILLER CUTTER OPERATOR Inhaled Oxygen Concentration - - Weight 140.6 kg (310 lb) 10/24/2024 2:30 PM SHREDDED FILLER CUTTER OPERATOR Height 188 cm (6' 2 ) 10/24/2024 2:30 PM SHREDDED FILLER CUTTER OPERATOR Body Mass Index 39.8 10/24/2024 2:30 PM SHREDDED FILLER CUTTER OPERATOR documented in this encounter Progress Notes * Kobe Olivarez MD - 10/24/2024 2:15 PM CST Images from the original note were not included. [facility] DATE OF VISIT: 10/24/2024 CHIEF COMPLAINT Chief Complaint Patient presents with Follow-up 7 mo follow up on AYERS, MELANIE, alejandra, edema, HTN, a-flutter HPI Jason Daigle is a 79 y.o. male with a history of abnormal stress test shortness of breath. Stress test showed inferior ischemia. He did finally undergo cardiac catheterization in January of 2015 which did not show any significant coronary disease. Normal LVEDP and ejection fraction 55-60%. He continues to have significant back pain. From a cardiac perspective he denies any chest pain. He does have shortness of breath with mild activity. He has intermittent edema. No paroxysmal nocturnal dyspnea, orthopnea, and syncope, presyncope, palpitations. Follow-up note 12/06/2018: He returns today feeling well and denies any chest pain, shortness breath, syncope, presyncope, paroxysmal nocturnal dyspnea, orthopnea, edema or palpitations. His shortness of breath is better now he has lost weight Follow-up visit 2019: He returns today in the office with complaints of worsening dyspnea with exertion and swelling. He was diagnosed with a DVT in is on Xarelto. He notices worsening shortness of breath over the past 6 months. He has put on over 30 lb since last visit but is down about 5-10over the past few weeks. He denies any chest pain, syncope, presyncope, paroxysmal nocturnal dyspnea. He does have worsening swelling also. He states that he is chronically tired and sleeps all the time. He does use his CPAP routinely but has not had it checked for redo study in years Follow-up note 01/30/2020: He continues to have some issues with swelling. His legs her certainly no better than they were last visit. His skin is tight and painful. No chest pain, significant shortness of breath, syncope, presyncope, paroxysmal nocturnal dyspnea, orthopnea palpitations. He does feel tired all the time. Follow-up note 02/19/2020: His shortness of breath has improved but is still quite significant. He is dyspneic with walking to and from the parking lot. His swelling is better with compression stockings. He denies any syncope, presyncope, paroxysmal nocturnal dyspnea, orthopnea. No palpitations Follow-up note 04/22/2020: His shortness breath is about the same but his lower extremity swelling is much better. He is continue to lose weight. He stopped his Xarelto on his own. DVT was diagnosed in November. No chest pain, syncope, presyncope, paroxysmal nocturnal dyspnea orthopnea, palpitations Follow-up note 08/28/2020: He continues have worsening dyspnea with exertion. He short of breath with walking to and from the parking lot. He denies any chest pain, syncope, presyncope, paroxysmal nocturnal dyspnea orthopnea, edema or palpitations. Follow-up with STITCHER TAPE CONTROLLED MACHINE 10/11/2020: He has no complaints or concerns today. His AYERS is unchanged. He had follow-up with Dr. Baker and his CPAP pressure was increased and he thinks this has been helpful. Heremains on Xarelto. He bruises easily but denies any bleeding problems. He is discouraged by his weight gain although he has not been watching what he is eating. He stays busy caring for his who has Parkinson's. Follow-up note 12/30/2020: He still has some shortness of breath with walking up down some steps but otherwise has been feeling okay and denies any chest pain, syncope, presyncope, paroxysmal nocturnal dyspnea orthopnea, edema palpitations Follow-up note 07/08/2021: He denies any chest pain, unusual shortness breath, syncope, presyncope,paroxysmal nocturnal dyspnea, orthopnea, edema or palpitations. He is to have eyelid surgery soon. Follow-up note 04/08/2022: His previous complaint is fatigue and tiredness. He does have some shortness of breath with activity but not definitive. He does feels tired all the time. No syncope, presyncope, paroxysmal nocturnal dyspnea, orthopnea. Does have lower extremity swelling. No chest pain Follow-up 10/14/2022: He was admitted due to dehydration and sepsis 1-2 months ago. Gradually he did improve and was discharged home but still feels weak. He has lower extremity swelling. No syncope,presyncope, paroxysmal nocturnal dyspnea orthopnea, chest pain or shortness of breath Follow-up note 02/17/2023: He has lost significant weight by exercising and watching his diet. He has little bit of swelling but overall better. No chest pain, shortness breath, syncope, presyncope, paroxysmal nocturnal dyspnea orthopnea. Has had a couple of passing out spells which she relates to a kidney infection. Since completing treatment and since having a TURP his symptoms have not recurred. Follow-up 05/12/2023: he has put on significant weight since last visit. He admits to some palpitations. He is short of breath with most any activity. No syncope, paroxysmal nocturnal dyspnea orthopnea, chest pain besides that which he has with palpitations. Follow-up note 08/26/2023: Since last visit he was hospitalized for UTI and found to be in atrial fibrillation also. He was started on full-dose Eliquis. He continues to be short of breath with minor activity. Shortness of breath is not particularly worse than what it had been but certainly no better. No bleeding problems. Has not missed any doses of Eliquis. No syncope, presyncope, palpitations. No bleeding problems Follow-up note 03/07/2024: He did not undergo AFib ablation. Feels about the same. No chest pain, shortness breath, syncope, presyncope, paroxysmal nocturnal dyspnea orthopnea, palpitations. No bleeding issues Follow-up note 05/30/2024: He did undergo cardioversion in March. He does not feel that it worked and thinks that he is in atrial fibrillation. He feels tired and has no energy. Does have little bitof edema which is not new or different. No chest pain, syncope, presyncope, paroxysmal nocturnal dyspnea, orthopnea, palpitations, bleeding problems. Follow-up note 10/24/2024: He was recently hospitalized for combination COVID, volume overload, AFib. He did undergo some IV diuresis. He was confused prior to going in the hospital his daughter called 911. He was progressively short of breath and had noticed a little bit of swelling prior to admission. He still feels tired and weak. Denies any chest pain, syncope, presyncope, paroxysmal nocturnal dyspnea. MEDICAL HISTORY Past Medical History: Diagnosis Date Atrial fibrillation (CMS/HCC) (HCC) Back pain Borderline diabetic Cancer (CMS/HCC) (HCC) left kidney, colon cancer 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 Chronic pain Emphysema of lung (HCC) Erectile dysfunction Headache Hip pain HX OTHER MEDICAL obesity, I. cholesterol, dentures, appendectomy, l; Comments: BUSHRA 10/12/2014 - Hypertension Leg pain Lumbago Memory loss Neuralgia Numbness Sleep apnea Social History Tobacco Use Smoking status: Former Smoker Types: Cigarettes Quit date: 02/18/1962 Years since quittin.4 Smokeless tobacco: Never Used Substance Use Topics Alcohol use: Yes Alcohol/week: 6.0 standard drinks Types: 6 Cans of beer per week Drug use: No Family History Problem Relation Age of Onset Alzheimer's disease Mother Alzheimer's disease; Cancer Father Emphysema Father Emphysema; Cancer Sister Cancer Brother Prostate cancer Brother 76 Cancer, prostate; Cause of : Cancer, prostate Cancer Brother COPD Brother Hearing loss Brother Kidney disease Brother Bleeding Disorder Brother Clotting disorder Brother Obesity Brother Anesthesia problems Neg Hx MEDICATIONS Medication List Accurate as of October 24, 2024 2:41 PM. If you have any questions, ask your nurse or doctor. CONTINUE taking these medications albuterol HFA 90 mcg/actuation inhaler Commonly known as: PROVENTIL HFA,VENTOLIN HFA,PROAIR HFA amiodarone 100 mg tablet Commonly known as: PACERONE cholecalciferol 5,000 unit tablet Commonly known as: VITAMIN D-3 cycloSPORINE 0.05 % ophthalmic emulsion Commonly known as: RESTASIS docusate sodium 100 mg tablet Commonly known as: DOK Eliquis 5 mg tablet Generic drug: apixaban TAKE 1 TABLET TWICE A DAY fenofibrate 54 mg tablet Commonly known as: TRICOR furosemide 20 mg tablet Commonly known as: LASIX TAKE 1 TABLET DAILY NEEDED FOR SWELLING gabapentin 100 mg capsule Commonly known as: NEURONTIN hswfqvrb-nukz-hbr3-C-fausto-bosw 750 mg-644 mg- 30 mg-1 mg tablet melatonin 10 mg tablet potassium chloride ER 10 mEq CR tablet Commonly known as: KLOR-CON Stiolto Respimat 2.5-2.5 mcg/actuation inhaler Generic drug: tiotropium-olodateroL turmeric root extract 500 mg capsule STOP taking these medications finasteride 5 mg tablet Commonly known as: PROSCAR Stopped by: Kobe Olivarez MD Fish OiL 1,000 (120-180) mg capsule Generic drug: omega 7-qux-dhq-fish oil Stopped by: Kobe Olivarez MD multivitamin tablet Stopped by: Kobe Olivarez MD tamsulosin 0.4 mg extended release capsule Commonly known as: FLOMAX Stopped by: Kobe Olivarez MD vitamin C 1,000 mg tablet Generic drug: ascorbic acid Stopped by: Kobe Olivarez MD Current Outpatient Medications on File Prior to Visit Medication Sig Dispense Refill albuterol HFA (PROVENTIL HFA,VENTOLIN HFA,PROAIR HFA) 90 mcg/actuation inhaler INHALE 1 TO 2 PUFFS BY MOUTH EVERY 4 TO 6 HOURS NEEDED FOR SHORTNESS OF BREATH OR WHEEZING amiodarone (PACERONE) 100 mg tablet Take 1 tablet (100 mg total) by mouth daily cholecalciferol (VITAMIN D-3) 5,000 unit tablet cycloSPORINE (RESTASIS) 0.05 % ophthalmic emulsion Administer 1 drop into both eyes every 12 (twelve) hours docusate sodium (DOK) 100 mg tablet Take 1 tablet (100 mg total) by mouth 2 (two) times a day as needed for constipation Eliquis 5 mg tablet TAKE 1 TABLET TWICE A DAY 90 tablet 7 fenofibrate (TRICOR) 54 mg tablet Take 1 tablet (54 mg total) by mouth daily furosemide (LASIX) 20 mg tablet TAKE 1 TABLET DAILY NEEDED FOR SWELLING 90 tablet 2 gabapentin (NEURONTIN) 100 mg capsule Take 1 capsule (100 mg total) by mouth nightly uynvawkq-juwo-ppj8-C-fausto-bosw 750 mg-644 mg- 30 mg-1 mg tablet Take by mouth melatonin 10 mg tablet Take 1 tablet (10 mg total) by mouth nightly as needed potassium chloride ER 10 mEq CR tablet Take 1 tablet/capsule (10 mEq total) by mouth daily Stiolto Respimat 2.5-2.5 mcg/actuation inhaler turmeric root extract 500 mg capsule Take by mouth [DISCONTINUED] ascorbic acid (vitamin C) 1,000 mg tablet take 1 by Oral route once 0 0 [DISCONTINUED] finasteride (PROSCAR) 5 mg tablet Take 1 tablet (5 mg total) by mouth retail stock clerk before breakfast [DISCONTINUED] multivitamin tablet Take 1 tablet by mouth retail stock clerk before breakfast [DISCONTINUED] omega 3-egn-jcb-fish oil (Fish OiL) 1,000 mg (120 mg-180 mg) capsule Take 1 capsule (1,000 mg total) by mouth 2 (two) times a day [DISCONTINUED] tamsulosin (FLOMAX) 0.4 mg extended release capsule Take 1 capsule (0.4 mg total) bymouth nightly No current facility-administered medications on file prior to visit. ALLERGIES Allergies Allergen Reactions Morphine Mental status changes, Other (See comments) and Delusions Reaction: Other Opioids - Morphine Analogues Mental status changes, Hallucinations and Agitation Opioids-Meperidine And Related Delusions REVIEW OF SYSTEMS Review of Systems Constitutional: Positive for weight gain. Negative for malaise/fatigue and weight loss. HENT: Negative for hearing loss. Eyes: Negative for blurred vision and visual disturbance. Cardiovascular: Positive for leg swelling. Negative for chest pain, claudication, dyspnea on exertion, irregular heartbeat, near-syncope, orthopnea, palpitations, paroxysmal nocturnal dyspnea and syncope. Leg pain with walking Respiratory: Positive for snoring. Negative for cough, hemoptysis, shortness of breath, sleep disturbances due to breathing and wheezing. Endocrine: Negative for cold intolerance, heat intolerance and polyuria. Hematologic/Lymphatic: Does not bruise/bleed easily. Skin: Negative for color change, itching and rash. Musculoskeletal: Positive for joint pain. Negative for falls, joint swelling, muscle cramps, muscleweakness and myalgias. Gastrointestinal: Negative for abdominal pain, heartburn, nausea and vomiting. Acid reflux Genitourinary: Negative for dysuria. Neurological: Negative for excessive daytime sleepiness, dizziness, focal weakness, headaches, light-headedness, loss of balance and numbness. Psychiatric/Behavioral: Negative for altered mental status, depression and substance abuse. The patient is not nervous/anxious. Allergic/Immunologic: Negative for environmental allergies. PHYSICAL EXAM Blood pressure 134/72, pulse 80, height 188 cm (6' 2 ), weight (!) 140.6 kg (310 lb), SpO2 97%. Body mass index is 39.8 kg/m??. Physical Exam Vitals reviewed. HENT: Head: Normocephalic and atraumatic. Nose: Nose normal. Eyes: General: No scleral icterus. Conjunctiva/sclera: Conjunctivae normal. Cardiovascular: Rate and Rhythm: Regular rhythm. Bradycardia present. Pulses: Intact distal pulses. Heart sounds: Normal heart sounds. No murmur heard. No friction rub. No gallop. Pulmonary: Effort: Pulmonary effort is normal. No respiratory distress. Breath sounds: Normal breath sounds. No wheezing or rales. Chest: Chest wall: No tenderness. Abdominal: General: Bowel sounds are normal. There is no distension. Palpations: Abdomen is soft. Tenderness: There is no abdominal tenderness. Musculoskeletal: General: Normal range of motion. Cervical back: Neck supple. Right lower leg: Edema present. Left lower leg: Edema present. Skin: General: Skin is warm and dry. Neurological: Mental Status: He is alert and oriented to person, place, and time. Psychiatric: Mood and Affect: Mood normal. LABS AND OTHER DIAGNOSTIC TESTS Lab Results Component Value Date WBC 9.6 03/28/2024 HGB 15.5 03/28/2024 HCT 46.4 03/28/2024 MCV 97.7 (H) 03/28/2024 Chemistry Component Value Date/Time CO2 30 03/28/2024 1125 CREATININE 1.41 (H) 03/28/2024 1125 CREATININE 1.10 01/30/2020 0000 Component Value Date/Time CALCIUM 9.8 03/28/2024 1125 ALKPHOS 97 03/28/2024 1125 AST 14 03/28/2024 1125 ALT 16 03/28/2024 1125 BILITOT 0.3 03/28/2024 1125 No results found for: CHOL No results found for: HDL No results found for: LDL ] No results found for: LDLCALC No results found for: TRIG No results found for: CHOLHDL 01/29/2020: Normal sinus rhythm, right bundle-branch block, first-degree AV block, PVC. Abnormal EKG EKG 05/30/2024: Marked sinus bradycardia with a first-degree AV block, right bundle-branch block. Abnormal EKG EKG 10/24/2024: Atrial fibrillation with right bundle-branch block, left anterior fascicular block.Abnormal EKG EKG 07/08/2021: Marked sinus bradycardia/sinus arrhythmia with right bundle- branch block and a first-degree AV block. Abnormal EKG EKG 08/26/2023: Atrial fibrillation with right bundle-branch block in abnormal EKG Echo August 2016: EF 75%. Grade 1 diastolic dysfunction. Mild left atrial enlargement. Echocardiogram 12/18/2019: Definity contrast agent used to visually enhance endocardial wall motion and contractility. Lot Number: [id number]. Mild concentric left ventricular hypertrophy. Impaired diastolic relaxation Grade I. Ejection fraction is visually estimated at 70 %. Ejection fraction is measured at 69 %. Normal right ventricular systolic function. Mild enlargement of right ventricle. There is mild enlargement of left atrium. Mild mitral annular calcification. Mild mitral valve regurgitation. Mild tricuspid regurgitation. Normal sinus rhythm. Venous Doppler 12/04/2019: Positive for right calf DVT Venous Doppler June 2020: No DVT is seen 10/04/2014: Inferior ischemia Cardiac catheterization 02/22/2015: No obstructive coronary disease Treadmill converted to Lexiscan nuclear stress test 09/23/2020: Global LV function normal with EF 69%, no diagnostic ST changes, myocardial perfusion images probably normal (evidence of diaphragmaticattenuation artifact). 48 hour Holter monitor 04/15/2022 1. Underlying sinus bradycardia with frequent PACs and PVCs. 2. No prolonged pauses or high-grade AV blocks. 3. Frequent runs of atrial tachycardia without atrial fibrillation or atrial flutter appreciated. 4. No symptoms returned in conjunction with this study. Clinical correlation advised. EPS 02/21/24 Successful electrical isolation of the pulmonary veins. ASSESSMENT Diagnoses and all orders for this visit: 1. AYERS (dyspnea on exertion) Probably related to deconditioning and obesity: Continuous and multi factorial 2. Chronic kidney disease, unspecified CKD stage Stable 3. MELANIE (obstructive sleep apnea) On CPAP 4. Hypertriglyceridemia On niacin 5. Chronic back pain, unspecified back location, unspecified back pain laterality Better 6. History of DVT of lower extremity No DVT by US 05/2020 7. Bradycardia No clear symptoms 8. Bilateral lower extremity edema Trivial 9. Essential hypertension At goal 10.Morbid obesity with BMI of 40.0-44.9, adult improved 11. Persistent atrial fibrillation On anticoagulation and still in sinus rhythm/sinus bradycardia 12. Chronic anticoagulation No bleeding PLAN/RECOMMENDATIONS EKG today because of atrial fibrillation He is back in atrial fibrillation. Again I am uncertain if he actually feels better or not while insinus rhythm. At last evaluation he was having similar complaints of fatigue and tiredness but was in marked sinus bradycardia. I reduce his amiodarone he does not think that he felt significantly better with amiodarone reduction. Uncertain as to how long he has been back in atrial fibrillation buthe was in atrial fibrillation at his presentation to the emergency department during his recent admission for COVID and had some volume overload which was improved with diuresis. I again discussed rate versus rhythm control. If rhythm control is decided, given his marked sinus bradycardia previously as well as trifascicular block, he may very well need a pacemaker in order tosafely/appropriately rhythm control him. I also discussed simply stopping the amiodarone letting his heart rate increase and let him stay in atrial fibrillation but there is some concern of him beingsymptomatic and/or worsened heart failure. Regardless after having this discussion, I offered referral back to Dr. Smith for an opinion. He verbalized understanding and is in agreement. Continue Eliquis for AFib. He is otherwise stable. Dietary and lifestyle modifications for weight loss. Follow-up in 3 months or sooner as clinically indicated Kobe Olivarez MD, [facility] DDED FILLER CUTTER OPERATOR documented in this encounter Plan of Treatment Scheduled Referrals Name Type Priority Associated Diagnoses Order Schedule Ambulatory referral to Cardiac Electrophysiology Outpatient Referral Routine Persistent atrial fibrillation (HCC) Bradycardia Expected: 11/07/2024 (Approximate), Expires: 10/24/2025 documented as of this encounter Goals Goal Patient Goal Type Associated Problems Recent Progress Patient-Stated? Author CCM Chronic Pain Care Plan Chronic Care Management Improving( 12:49 PM CDT) No Cailin Anders, DAVID Note: Problem: Chronic Pain Goals: 1. Minimize further functional decline 2. Maximize quality of life 3. Control pain Strategies: - Activity/exercise program recommendation - Conservative stepwise pain medicine strategy with multi-disciplinary approach - Recommend healthy lifestyle strategies and compensatory methods as needed documented as of this encounter Visit Diagnoses Diagnosis Persistent atrial fibrillation (HCC)- Primary Atrial fibrillation Essential hypertension Unspecified essential hypertension Chronic anticoagulation Encounter for long-term (current) use of anticoagulants Bradycardia Other specified cardiac dysrhythmias documented in this encounter Discontinued Medications Medication Sig Discontinue Reason Start Date End Da te tamsulosin (FLOMAX) 0.4 mg extended release capsule Take 1 capsule (0.4 mg total) by mouth nightly Therapy completed 10/24/2024 multivitamin tablet Take 1 tablet by mouth retail stock clerk before breakfast Therapy completed 10/24/2024 finasteride (PROSCAR) 5 mg tablet Take 1 tablet (5 mg total) by mouth retail stock clerk before breakfast Therapy completed 10/24/2024 omega 5-inc-hsj-fish oil (Fish OiL) 1,000 mg (120 mg-180 mg) capsule Take 1 capsule (1,000 mg total) by mouth 2 (two) times a day Therapy completed 04/07/2013 10/24/2024 ascorbic acid (vitamin C) 1,000 mg tablet take 1 by Oral route once Therapy completed 11/30/2016 10/24/2024 documented as of this encounter Historical Medications * This list may reflect changes made after this encounter. udlewlyn-myjk-ok n2-T-npzg-bosw 750 mg-644 mg- 30 mg-1 mg tablet Take by mouth turmeric root extract 500 mg capsule Take by mouth cholecalciferol (VITAMIN D-3) 5,000 unit tablet melatonin 10 mg tablet Take 1 tablet (10 mg total) by mouth nightly as needed docusate sodium (DOK) 100 mg tabletIndication s:constipation Take 1 tablet (100 mg total) by mouth 2 (two) times a day as needed for constipation added in this encounter Care Teams Etl Tester Relationship Specialty Start Date End Date jA Tejeda MD [address] [facility] [address] [place] [address] PCP - General 10/06/18 documented as of this encounter
--- OUTSIDE RECORDS SUMMARY | 2024-10-25 18:11 | XMS_ITS | Continuity of Care Document ---
Author Name [facility] Organization [facility] Care Team Providers Care Information Systems Supervisor Name Role Phone [facility] Unavailable Unavailable Problems Combined list of problems from Department of Defense and Veterans Affairs facilities. It does not include entries that were removed or entered in error. 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 DoD Laboratory Studies Active Condition DoD routine history [...] erectile disorder Active Condition previously on viagra DoD arthritis Active Condition med refill - working well for patient DoD X-Ray Active Condition screening - prior to physical DoD visit for: screening malignant neoplasm colon Active Condition c-scope #7199. Consult for General Surgery entered. [facility] visit for: laboratory Active Condition DoD arthritis Active Condition DoD Patient Education Active Condition Gisel scussed the importance of getting completely tobacco-free as soon as possible. Reminded him that he only has one more prescription of Chantix coming to him. Discussed avoiding drinking at the [employer] for some time. His term off office ends Jan. DoD nicotine dependence Active Condition Refill for Chantix. 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 BOTTLE Active [id number] 2023 60 Pharmac y Data Transac tion Service Facilit y CEPHALEXIN (CEPHALEXIN MONOHYDRATE ), 500MG, CAPSULE, ORAL, TEVA [place], 500 ea. BOTTLE Active [id number] 4 2023 60 Pharmac y Data Transac tion Service Facilit y CYCLOSPORIN E (cyclospori ne), 0.05 %, DROPERETTE, OPHTHALMIC, APOTEX BECKY, 30 ea. VIAL Active [id number] 4 2023 180 Pharmac y Data Transac tion Service Facilit y CYCLOSPORIN E (cyclospori ne), 0.05 %, DROPERETTE, OPHTHALMIC, APOTEX BECKY, 60 ea. VIAL Cancele d [id number] : 2023 0 Pharmac y Data Transac tion Service Facilit y CYCLOSPORIN E (cyclospori ne), 0.05 %, DROPERETTE, OPHTHALMIC, APOTEX BECKY, 60 ea. VIAL Active [id number] 2023 180 Pharmac y Data Transac tion Service Facilit y CYCLOSPORIN E (cyclospori ne), 0.05 %, DROPERETTE, OPHTHALMIC, APOTEX BECKY, 60 ea. VIAL Cancele d [id number] : 2023 0 Pharmac y Data Transac tion Service Facilit y ELIQUIS (APIXABAN), 5 MG, TABLET, ORAL, BMS PRIMARYCARE , 60 ea. BOTTLE Active [id number] 2023 90 Pharmac y Data Transac tion Service Facilit y ELIQUIS (APIXABAN), 5 MG, TABLET, ORAL, BMS PRIMARYCARE , 60 ea. BOTTLE Active [id number] 4 2023 180 Pharmac y Data Transac tion Service Facilit y ELIQUIS (APIXABAN), 5 MG, TABLET, ORAL, BMS PRIMARYCARE , 60 ea. BOTTLE Active [id number] 2023 180 Pharmac y Data Transac tion Service Facilit y ELIQUIS (APIXABAN), 5 MG, TABLET, ORAL, BMS PRIMARYCARE , 60 ea. BOTTLE Cancele d [id number] : 2023 0 Pharmac y Data Transac tion Service Facilit y ELIQUIS (APIXABAN), 5 MG, TABLET, ORAL, BMS PRIMARYCARE , 60 ea. BOTTLE Active [id number] 2022 60 Pharmac y Data Transac tion Service Facilit y FENOFIBRATE (fenofibrat e), 54 MG, TABLET, ORAL, AMNEAL PHARMACE, 90 ea. BOTTLE Active [id number] 2023 90 Pharmac y Data Transac tion Service Facilit y FENOFIBRATE (fenofibrat e), 54 MG, TABLET, ORAL, AMNEAL PHARMACE, 90 ea. BOTTLE Active [id number] 4 2023 90 Pharmac y Data Transac tion Service Facilit y FINASTERIDE (FINASTERID E), 5 MG, TABLET, ORAL, CAMBER PHARMACE, 30 ea. BOTTLE Active [id number] 2023 90 Pharmac y Data Transac tion Service Facilit y FISH OIL 1000MG (500MG DHA/EPA) CAP,ORAL TAKE 1 CAPSULE BY MOUTH TWICE A DAY ORAL ACTIVE Nadine GREENE 2012 [facility] FUROSEMIDE (furosemide ), 20 MG, TABLET, ORAL, AVKARE, 1000 ea. BOTTLE Active [id number] 2023 90 Pharmac y Data Transac tion Service Facilit y FUROSEMIDE (furosemide ), 20 MG, TABLET, ORAL, AVKARE, 1000 ea. BOTTLE Active [id number] 2023 90 Pharmac y Data Transac tion Service Facilit y GABAPENTIN (gabapentin ), 100 MG, CAPSULE, ORAL, [employer] 1000 ea. BOTTLE Active [id number] 2023 90 Pharmac y Data Transac tion Service Facilit y GABAPENTIN (gabapentin ), 100 MG, CAPSULE, ORAL, XLCARE PHARMACE, 500 ea. BOTTLE Active [id number] 2023 180 Pharmac y Data Transac tion Service Facilit y GABAPENTIN (gabapentin ), 100 MG, CAPSULE, ORAL, XLCARE PHARMACE, 500 ea. BOTTLE Active [id number] 2023 90 Pharmac y Data Transac tion Service Facilit y GABAPENTIN 300MG CAP TAKE 2 CAPSULES BY MOUTH AT BEDTIME ORAL ACTIVE SRUTHI CIFUENTES 2013 [facility] GLUCOSAMINE CAP/TAB TAKE 1 CAP/TAB BY MOUTH ORAL ACTIVE Nadine GREENE 2012 [facility] HYDROCHLORO THIAZIDE 50MG/TRIAMT ERENE 75MG TAB TAKE ONE TABLET BY MOUTH EVERY MORNING ORAL ACTIVE Nadine GREENE 2012 [facility] LISINOPRIL 20MG TAB TAKE ONE-HALF TABLET BY MOUTH ONCE A DAY ORAL ACTIVE BRIAN JIN 2014 [facility] METOLAZONE 2.5MG TAB TAKE TWO TABLETS BY MOUTH ONCE A DAY ORAL ACTIVE BRIAN JIN 2014 [facility] PANTOPRAZOL E SODIUM (pantoprazo le sodium), 40 MG, TABLET DR, ORAL, [employer] 1000 ea. BOTTLE Active [id number] 2023 90 Pharmac y Data Transac tion Service Facilit y POTASSIUM CHLORIDE (potassium chloride), 10 MEQ, TABLET ER, ORAL, AVKARE, 500 ea. BOTTLE Active [id number] 2023 90 Pharmac y Data Transac tion Service Facilit y POTASSIUM CHLORIDE (potassium chloride), 10 MEQ, TABLET ER, ORAL, AVKARE, 500 ea. BOTTLE Active [id number] 4 2023 90 Pharmac y Data Transac tion Service Facilit y POTASSIUM CHLORIDE (potassium chloride), 10 MEQ, TABLET ER, ORAL, AVKARE, 500 ea. BOTTLE Active [id number] 4 2023 90 Pharmac y Data Transac tion Service Facilit y STIOLTO RESPIMAT (tiotropium bromide/olo daterol HCl), 2.5-2.5MCG, MIST INHAL, INHALATION, BOEHRINGER ING., 4 g AER W/ADAP Active [id number] 2023 12 Pharmac y Data Transac tion Service Facilit y STIOLTO RESPIMAT (tiotropium bromide/olo daterol HCl), 2.5-2.5MCG, MIST INHAL, INHALATION, BOEHRINGER ING., 4 g AER W/ADAP Active [id number] 2023 12 Pharmac y Data Transac tion Service Facilit y SULFAMETHOX AZOLE-TRIME THOPRIM (SULFAMETHO XAZOLE/TRIM ETHOPRIM), 800-160MG, TABLET, ORAL, [employer]ARM, 500 ea. BOTTLE Active [id number] 2023 14 Pharmac y Data Transac tion Service Facilit y TAMSULOSIN HCL (TAMSULOSIN HCL), 0.4 MG, CAP.SR 24H, ORAL, ZYDUS PHARMACEU, 1000 ea. BOTTLE Active [id number] 2023 90 Pharmac y Data Transac tion Service Facilit y TAMSULOSIN HCL (TAMSULOSIN HCL), 0.4 MG, CAP.SR 24H, ORAL, ZYDUS PHARMACEU, 1000 ea. BOTTLE Active [id number] 4 2023 90 Pharmac y Data Transac tion Service Facilit y TERBINAFINE HCL 250MG TAB TAKE ONE TABLET BY MOUTH ONCE A DAY ORAL ACTIVE ANNABELIN GRID D 2014 [facility] TESTOSTERON E CYPIONATE 200MG/ML INJ,1ML (IN OIL) INJECT 400MG/2M L DEEP INTRAMUS CULARLY INTRAM USCULA R ACTIVE ANNABELIN GRID D 2014 [facility] VITAMIN B COMPLEX CAP TAKE 1 CAPSULE BY MOUTH QAM ORAL ACTIVE Nadine GREENE 2012 [facility] Allergies, Adverse Reactions, Alerts Combined list of allergies from Department of [facility] and Veterans Affairs facilities. It does not include entries that were removed or entered in error. Substance Category Reaction Severity Reaction type Status Date Reported Comments Source ANALGESIC(O PIOD) DRG [facility] Drug allergy (disorder) Delirium active 3 [facility] MORPHINE Propensity to adverse reactions to drug (finding) Delirium active [address] [place] [address] DIVISION Immunizations Combined list of available immunizations from the Department of Defense and Veterans Affairs facilities. Immunization Series Date Given Administered By Site Reaction Lot Number CVX Code Drug Well Flow Operator Status Comments Source influenza, high-dose, quadrivalent 2021 LUIS MIGUEL, () Not Given influenza , high-dose , quadrival ent DoD COVID-19, mRNA, LNP-S, PF, 100 mcg or 50 mcg dose 2021 LUIS MIGUEL, [employer] (MOD) Not Given COVID-19, mRNA, LNP-S, PF, 100 mcg or 50 mcg dose DoD COVID-19, mRNA, LNP-S, PF, 100 mcg or 50 mcg dose 2020 CHELE, () Not Given COVID-19, mRNA, LNP-S, PF, 100 mcg or 50 mcg dose DoD COVID-19, mRNA, LNP-S, PF, 100 mcg or 50 mcg dose 2020 [employer] (MOD) Not Given COVID-19, mRNA, LNP-S, PF, 100 mcg or 50 mcg dose [facility] PNEUMOCOCCAL CONJUGATE PCV 13 2014 133 complet ed [facility] INFLUENZA, UNSPECIFIED FORMULATION 2013 88 complet ed [facility] INFLUENZA, UNSPECIFIED FORMULATION 2012 88 complet ed [facility] INFLUENZA, UNSPECIFIED FORMULATION 2012 88 complet ed [facility] N ZOSTER LIVE 2012 121 complet ed [facility] PNEUMOCOCCAL, UNSPECIFIED FORMULATION 2012 109 complet ed [facility] TDAP 2011 115 complet ed [facility] N Encounters Combined list of: 1) Encounters from Department of Veterans Affairs facilities going backup to the last 18 months, not all [place] inpatient encounters are included; 2) Encounters from the Department of Defense facilities going backup to 280 months. Location Location Details Encounter Type Encounter Number Reason For Visit Attending Provider ADM Date DC Date Status Disposition Source [address] [place] [address] Amando [place] [facility] Practice Non-GME FHI1) OUTPATIENT [id number] stop smoking CYNDY LINARES P 12/15 Released w/o Limitations [address] [place] [address] Amando [facility])(F amily Practic e Non-GME FHI1) [address] [place] [address] Amando [facility])([facility] Practice Non-GME FHI1) OUTPATIENT [id number] tobacco cessati on class #1 CYNDY LINARES P 12/16 Released w/o Limitations [address] [place] [address] Amando [facility] Pract[facility] e Non-GME FHI1) [address] [place] [address] Amando Mayda [facility] Practice Non-GME FHI1) OUTPATIENT [id number] tobacco cessati on VANDA NAOMI D 12/30 Released w/o Limitations [address] [place] [address] Amando [facility] Practic e Non-GME FHI1) [address] [place] [address] Amando [facility])(Sco tt [employer] Tm) OUTPATIENT [id number] tobacco cessati on class #5 HAYDEN CRONIN 01/14 Released w/o Limitations [address] [place] [address] Amando [place] [facility] cott [facility] Tm) [address] [place] [address] Amando [facility] OUTPATIENT [id number] tobacco cessati on follow- up CYNDY LINARES P 02/03 Released w/o Limitations [address] [place] [address] Amando [place] [facility] Practic e Non-GME FHI1) [address] [place] [address] Amando [place] [facility] Non-GME FHI1) OUTPATIENT [id number] fol PHA CYNDY LINARES P 05/30 Released w/o Limitations [address] [place] [address] Amando [place] [facility] Practic e Non-GME FHI1) [address] [place] [address] Amando [facility] Non[facility]ME FHI1) OUTPATIENT [id number] f/u to labs/EK G needed/ physica l CYNDY LINARES P 06/13 Released w/o Limitations [address] [place] [address] Amando [facility])(F amily Practic e Non-GME FHI1) [address] [place] [address] Amando [facility])(Sco tt [facility] FAMRES Tm Blue) TELE CONSULT [id number] Labs for C-Scope VERONICA JUAREZ 06/[address] [place] [address] Amando [facility])(S [facility] FAMRES Tm Blue) [address] [place] [address] Amando [facility])([facility] Practice Non-GME FHI2) OUTPATIENT [id number] sore throat KULWINDER MACHUCA 06/22 Released w/o Limitations [address] [place] [address] Amando [place] [facility] Practic e Non-GME FHI2) [address] [place] [address] Amando [place] [facility] Non[facility]ME FHI1) TELE CONSULT [id number] call back - SD Siddiqui am 06/[address] [place] [address] Amando [place] [facility] am[facility] Practic e Non-GME FHI1) [address] [place] [address] Amando [place] [facility] FHI2) OUTPATIENT [id number] sore throat KULWINDER MACHUCA 06/27 Released w/o Limitations [address] [place] [address] Amando RODGERS ([facility]F amily Practic e Non-GME FHI2) [address] [place] [address] Amando RODGERS ([facility]Sco tt [facility] Tm Blue) OUTPATIENT [id number] visit for: screeni ng maligna nt neoplas m colon CHANDANA RAMESH E 07/26 Released w/o Limitations [address] [place] [address] Amando RODGERS ([facility]S cott [facility] FAMRES Tm Blue) [address] [place] [address] Amando RODGERS ([facility]Sco tt [facility] Tm Blue) TELE CONSULT [id number] Colonos ocpy results RAMESH ELLINGTON 08/[address] [place] [address] Amando RODGERS ([facility] [place]S cott [facility] FAM[facility] Tm Blue) [address] [place] [address] Amando RODGERS ([facility]Gen eral Surgery) OUTPATIENT [id number] 3cm colonic polyp BARB PENN 08/17 Released w/o Limitations [address] [place] [address] Amando RODGERS ([facility]G eneral Surgery ) [address] [place] [address] Amando RODGERS ([facility] [place] [facility] Non-GME FHI1) TELE CONSULT [id number] call back - SONNY Andino am 09/[address] [place] [address] Amando RODGERS ([facility]F amily Practic e Non-GME FHI1) [address] [place] [address] Amando RODGERS ([facility]Gen eral Surgery) OUTPATIENT [id number] f/u-per zaynab Penn KENNETH D 09/14 Released w/o Limitations [address] [place] [address] Amando RODGERS ([facility]G eneral Surgery ) [address] [place] [address] Amando RODGERS ([facility]Gen eral Surgery) OUTPATIENT [id number] BARB PENN D 09/20 Released w/o Limitations [address] [place] [address] Amando RODGERS ([facility]G eneral Surgery ) [address] [place] [address] Amando RODGERS ([facility]Opt ometry) OUTPATIENT [id number] routine eye exam JUDSON BACON 09/21 Released w/o Limitations [address] [place] [address] Amando [facility] ([facility]O ptometr y) [address] [place] [address] Amando [facility] [place] [facility] Non-GME FHI2) TELE CONSULT [id number] call back-pa THERESA Dupont am 10/[address] [place] [address] Amando [facility])(F amily Practic e Non-GME FHI2) [address] [place] [address] Amando [facility])(Gen eral Surgery) OUTPATIENT [id number] zaynab gonzalez KENNETH D 10/27 Released w/o Limitations [address] [place] [address] Amando [facility])(G eneral Surgery ) [address] [place] [address] Amando [facility])(Gen eral Surgery) OUTPATIENT [id number] zaynab gonzalez KENNETH D 01/15 Released w/o Limitations [address] [place] [address] Amando [facility])(G eneral Surgery ) [address] [place] [address] Amando [facility])([facility] [place] [facility] Non-GME FHI2) TELE CONSULT [id number] jerri ponce -- SD Siddiqui am 01/[address] [place] [address])(F amily Practic e Non-GME FHI2) [address] [place] [address])([facility] Non-GME FHI1) OUTPATIENT [id number] follow- up colon CA CYNDY LINARES 02/06 Released w/o Limitations [address] [place] [address])(F amily Practic e Non-GME FHI1) [address] [place] [address])([facility] [facility] Non-GME FHI1) TELE CONSULT [id number] lab results . NOLA SWIFT 03/[address] [place] [address])(F amily Practic e Non-GME FHI1) [facility] Outpatient Encounter [id number] 10/21 [facility] Procedures Combined list of: 1) Procedures from Department of Veterans Affairs facilities going back up to thelast 18 months, not all VA non-surgical procedures are included; 2) All procedures from the Department of Defense facilities. Procedure Procedure Type Code Date Perfomer Comments Sourc e Non-Physician Phone Call To Pt/Provider Lengthy (21-30 min) Non-Physician Phone Call To Pt/Provider Lengthy (21-30 min) [id number] 8 NOLA SWIFT [facility] Determination Of Refractive State Determination Of Refractive State 75278 8 JUDSON BACON [facility] Visual Serrano Test Intermediate Examination Visual Serrano Test Intermediate Examination 59356 8 JUDSON BACON [facility] Ophthalmological New Patient Start Comprehensive Care Ophthalmological New Patient Start Comprehensive Care 39839 8 JUDSON BACON [facility] Complete Colonoscopy 00 7 RAMESH ELLINGTON [facility] Diagnostic Colonoscopy Fiberoptic Forceps Biopsy 7 RAMESH ELLINGTON [facility] TELE ASSESS & MGT SRV PROV QUAL NONPHYS HLTH CARE PRO TO EST PAT,PARENT,GUARD NOT ORIG REL ASSESS & MGT SRV PROV W/IN PREV 7 DAYS NOR LEAD ASSESS & MGT SRV/PX W/IN NXT 24H/SOON APT; 21-30 MIN MED DIS 8 [facility] POSTOPERATIVE FOLLOW-UP VISIT, NORMALLY INCLUDED IN THE SURGICAL PACKAGE, INDICATE THAT EVALUATION & MANAGEMENT SERVICE WAS PERFORMED DURING A POSTOPERATIVE PERIOD REASON RELATED ORIGINAL PROCEDURE 8 [facility] DETERMINATION OF REFRACTIVE STATE 8 [facility] COLONOSCOPY, FLEXIBLE; WITH BIOPSY, SINGLE OR MULTIPLE 7 [facility] Social History Combined list of available smoking, tobacco, and other social history from Department of Defense and Veterans Affairs facilities. Social History Type Response Date Comment [facility] e Tobacco smoking status NHIS QUIT TOBACCO >7 YEARS AGO 04/15/2015 [facility] History of tobacco use QUIT TOBACCO >7 Y EARS AGO 03/19/2014 [facility] History of tobacco use QUIT TOBACCO >7 Y EARS AGO 04/06/2013 [facility] This section is an empty social history section. DoD
== END 2024-10-25 15:49 | disposition home or self-care (01) ==
LOC: ANHLAB 15:50
PROVIDERS: PCP Family Medicine; Visit Provider Nurse Practitioner
DX: N18.30 Chronic kidney disease, stage 3 unspecified (principal)
CPT/HCPCS: 36415; 80048

== ENCOUNTER 2024-12-26 12:36 | Outpatient (CLI) | payer MEDICARE, OTHER, SELFPAY ==
[2024-12-26 13:31] LABS: Hemoglobin A1C 5.4 % (<5.7)
[2024-12-26 13:40] LABS: Alanine Aminotransferase 25 U/L (6-50); Albumin Level 4.2 g/dL (3.5-5.1); Alkaline Phosphatase 70 U/L (38-126); Anion Gap 9 mmol/L (4-12); Aspartate Amino Transferase 26 U/L (17-59); Bilirubin,Total 0.4 mg/dL (0.2-1.3); Blood Urea Nitrogen 20 mg/dL (9-20); Calcium 9.4 mg/dL (8.4-10.2); Carbon Dioxide 29 mmol/L (22-30); Chloride 100 mmol/L (98-107); Cholesterol 188 mg/dL (0-200); Estimated Glomerular Filt Rate 37; Glucose 109 mg/dL (65-110); HDL Direct 29 mg/dL; Sodium 138 mmol/L (137-145); Triglycerides 263 mg/dL (<150)
[2024-12-26 13:41] LABS: Iron 41 ug/dL (49-181)
--- OUTSIDE RECORDS SUMMARY | 2024-12-26 13:43 | XMS_ITS | Referral Summary ---
Author Organization [facility] Address [address] [place] [address] Care Team Providers Care Buffing Wheel Former Machine Name Role Phone Aj Tejeda MD Primary Care Provider Encounters Date Type Department Care Team Description 12/26/2024 Results Follow-Up [facility] Medical Group Cardiology at [address] [place] [address] Sanjay Valdez MD 12/20/2024 3:00 PM CDT Ancillary Procedure [facility] Cardiology [address] [facility] [address] [place] [phone] Persistent atrial fibrillation (HCC) 12/19/2024 Telephone [facility] Cardiology [address] [facility] [address] [place] [phone] Sanjay Valdez MD 10/24/2024 2:15 PM ISOLATION WASHER Office Visit [facility] Medical Group Cardiology at [address] [place] [address] Sanjay Valdez MD Persistent atrial fibrillation (HCC) (Primary Dx); [...] 5 Active docusate sodium (DOK) 100 mg tabletIndicatio ns:constipation Take 1 tablet (100 mg total) by mouth 2 (two) times a day as needed for constipation Active melatonin 10 mg tablet Take 1 tablet (10 mg total) by mouth nightly as needed Active cholecalciferol (VITAMIN D-3) 5,000 unit tablet Active turmeric root extract 500 mg capsule Take by mouth Active cuswapht-fyne-m jg3-J-yuyw-bosw 750 mg-644 mg- 30 mg-1 mg tablet Take by mouth Active Active Problems Problem Noted Date Diagnosed Date Chronic anticoagulation 05/30/2024 Atrial fibrillation 04/21/2024 A-fib 02/21/2024 Persistent atrial fibrillation 08/26/2023 Morbid obesity [...] Cephalalgia 05/26/2017 Neuralgia 05/25/2017 No diagnosis on [place] I 05/04/2017 Memory impairment 04/22/2017 Degeneration of [...] Date Resolved Date 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 06/25/2022 Glucose intolerance 11/14/2018 11/15/19 19 [...] on file Legal Sex Male 11:32 PM ISOLATION WASHER Gender Identity Male 04/01/2020 9:43 AM CDT Sexual Orientation Straight 11/07/2018 9: 10 PM CDT Occupation Industry Job Start Date Job End Date retired Not on file Not on file Not on file Last Filed Vital Signs Vital Sign Reading Time Taken Comments Blood Pressure 134/72 10/24/2024 2:30 PM ISOLATION WASHER Pulse 80 10/24/2024 2:30 PM ISOLATION WASHER Temperature 37 C (98.6 F) 02/21/2024 1:23 PM CDT Respiratory Rate 18 04/21/2024 8:50 AM CDT Oxygen Saturation 97% 10/24/2024 2:30 PM ISOLATION WASHER Inhaled Oxygen Concentration - - Weight 140.6 kg (310 lb) 10/24/2024 2:30 PM ISOLATION WASHER Height 188 cm (6' 2 ) 10/24/2024 2:30 PM ISOLATION WASHER Body Mass Index 39.8 10/24/2024 2:30 PM ISOLATION WASHER Plan of Treatment Not on file Goals [...] as needed Medical Devices Implanted Type Area Salesperson Parts Device Identifier Shelf Expiration Date Model / Serial / Lot [employer] Proclaim Elite 4.95cmx5.55cm 5 Implantable Pulse Tonic 3660 Contrlsys - [id number] Implanted:Qty: 1 on 05/14/2022 by Shawn Boyce MD PhD at [facility] Other - see comments N/A: Back [employer] 3660 CONTRLSYS / / Description:Pulse generator Spinal Cord Stimulator-06/2017 Implanted:07/30 by Lamonte Donahue MD (Quantity not on file) Spinal Cord Stimulator Back Nevro Alejandra Description:Model name lead1 [id number] Serial [id number] Implanted date 08-09-17 NEVRO SPINAL CORD STIMULATOR Per the vendor, this patients device exceeds the allowed impedence to safely have an MRI without surgical replacement Hip Bilater al: Hip Description:Total hip replac ment x2 [facility] Vascade Mvp 6-12fr Venous Closure [id number] - [id number] Implanted:Qty: 1 on 02/21/2024 by Abhilash Smith MD at [facility] 11/07/2025 [id number] / / [id number] [facility] [employer] [facility] Vascade Mvp 6-12fr Venous Closure [id number] - [id number] Implanted:Qty: 1 on 02/21/2024 by Abhilash Smith MD at [facility] 11/07/2025 [id number]-10 U / / [id number] [facility] [employer] Vascade Mvp 6-12fr Venous Closure [id number] - [id number] Implanted:Qty: 1 on 02/21/2024 by Abhilash Smith MD at [facility] 11/07/2025 [id number] / / [id number] A Procedures Procedure Name Priority Date/Time Associated Diagnosis Comments TRANSTHORACIC ECHO (TTE) COMPLETE W DOPPLER/CF W CONTRAST Routine 12/20/2024 3:55 PM CDT Persistent atrial fibrillation (HCC) ELECTROCARDIOGRAM REPORT Routine 025 7:53 AM ISOLATION WASHER Persistent atrial fibrillation (HCC) EGFR Routine 03/28/2024 11:25 AM CDT Anticoagulation management encounter HEMOGLOBIN A1C Routine 02/18/2024 12:22 PM CDT Encounter for preadmission testing 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) LIPID PANEL Routine 11/01/2019 from Last 3 Months or Most Recently Relevant to Health Maintenance Results * TRANSTHORACIC ECHO (TTE) COMPLETE W DOPPLER/CF W CONTRAST (12/20/2024 3:55 PM CDT) LV EF 60-65 % CONS SCIMAGE Anatomical Region Laterality Modality Ultrasound 12/20/2024 2:35 PM CDT Narrative 12/20/2024 4:16 PM CDT [facility] Medical Group Cardiology [address] [facility] [address], [place] [address] [address] [facility] [address], [place] [address] P:[phone] P:[phone] Echocardiographic Report Patient Name: JASON DAIGLE BE : 1945 Study Date: 12/20/2024 2:35:57 PM Gender: M Tech: Location: [facility] Provider: SANJAY VALDEZ Height(Cm): 188 BSA: 2.71 Weight(Kg): 140.6 Heart Rate: 79 BP: 134 / 72 Quality: Good Order Provider: SANJAY VALDEZ PROCEDURES: Echocardiographic Report: Transthoracic echocardiogram with complete 2D, M-Mode, color Doppler examination and Definity contrast. INDICATIONS: Persistent Atrial Fibrillation. MEASUREMENTS: 2D/MM Value Range Doppler Value Range EF Mod BP 61 % [ 52 - 72 ] AV Mean PG 3 mmHg EF Teich MM 52 % [ 52 - 72 ] AV Peak Boogie 1.18 m/s [ 1.00 - 1.70 ] Estimated EF 60-65 % AV Peak PG 6 mmHg LVIDd 2D 4.86 cm [ 4.20 - 5.80 ] AV VTI 21.31 cm LVIDd MM 6.14 cm [ 4.20 - 5.80 ] LVOT Peak Boogie 0.96 m/s [ 0.70 - 1.10 ] LVIDs 2D 3.13 cm [ 2.50 - 4.00 ] LVOT VTI 17.09 cm LVIDs MM 4.45 cm [ 2.50 - 4.00 ] MV E Peak Boogie 1.08 m/s [ 0.60 - 1.30 ] LVPWd MM 1.17 cm [ 0.60 - 1.00 ] MV Decel Time 190 msec [ 104 - 258 ] IVSd 2D 0.75 cm [ 0.60 - 1.00 ] PV Peak Boogie 0.94 m/s [ 0.40 - 0.80 ] IVSd MM 1.69 cm [ 0.60 - 1.00 ] TR Peak Boogie 2.89 m/s [ 1.00 - 2.80 ] LA Dimension MM 5.62 cm [ 3.00 - 4.00 ] TR Peak PG 33 mmHg AoR Diam MM 4.32 cm [ 3.10 - 3.70 ] RVSP 41.00 mmHg [ 10.00 - 36.00 ] LA Volume Index 35 cc/m2 [ 16 - 34 ] Lateral E` 0.09 m/s [ 0.10 - 0.15 ] E` 0.08 m/s E/E` 12 2D/MM Value Range Doppler Value Range - FINDINGS: Interpretation Site: Exam was interpreted at [facility]. Left Ventricle: Normal left ventricular systolic function. No focal wall motion abnormalities. Normal left ventricular size. Definity contrast agent used to visually enhance endocardial wall motion and contractility. Lot Number: [id number]. Mild concentric left ventricular hypertrophy. Indeterminate diastolic function. Ejection fraction is measured at 61 %. Ejection Fraction is visually estimated to be 60-65 %. Right Ventricle: Normal right ventricular systolic function. Mild enlargement of right ventricle. Left Atrium: There is moderate enlargement of left atrium. Right Atrium: There is moderate enlargement of right atrium. Atrial Septum: Normal atrial septum. Mitral Valve: Mild mitral annular calcification. Mild mitral valve regurgitation. There is no hemodynamically significant mitral stenosis by Doppler. Aortic Valve: No evidence of hemodynamically significant aortic stenosis by Doppler. Aortic cusps appear mildly sclerotic. Trileaflet aortic valve. Trace to mild aortic valve regurgitation. Tricuspid Valve: Normal appearance of the tricuspid valve. Mild pulmonary hypertension based on right ventricular systolic pressure. Estimated peak RVSP is 41 mmHg. Mild tricuspid regurgitation. Pulmonic Valve: Normal appearance of the pulmonic valve. No pulmonic stenosis. Trivial regurgitation in the pulmonic valve. Pericardium: Normal pericardium with no significant pericardial effusion. Aorta: The aortic root is dilated. IVC: Normal size and normal respiratory collapse consistent with normal right atrial pressure (<5 mmHg). CONCLUSIONS: Normal left ventricular systolic function. No focal wall motion abnormalities. Normal left ventricular size. Definity contrast agent used to visually enhance endocardial wall motion and contractility. Lot Number: [id number]. Mild concentric left ventricular hypertrophy. Indeterminate diastolic function. Ejection fraction is measured at 61 %. Ejection Fraction is visually estimated to be 60-65 %. Normal right ventricular systolic function. Mild enlargement of right ventricle. There is moderate enlargement of left atrium. There is moderate enlargement of right atrium. Mild mitral annular calcification. Mild mitral valve regurgitation. Mild pulmonary hypertension based on right ventricular systolic pressure. Estimated peak RVSP is 41 mmHg. Mild tricuspid regurgitation. The aortic root is dilated. Atrial fibrillation. Electronically Signed By: Sanjay Valdez MD 12/20/2024 4:15:31 PM CDT Procedure Note Sanjay Valdez MD - 12/20/2024 [facility] Medical Group Cardiology [address] [place] [address] [address] [facility] [address], [place] [address] P:[phone] P:[phone] Echocardiographic Report Patient Name: JASON DAIGLE BE : 1945 Study Date: 12/20/2024 2:35:57 PM Gender: M Tech: Location: [facility] Provider: SANJAY VALDEZ Height(Cm): 188 BSA: 2.71 Weight(Kg): 140.6 Heart Rate: 79 BP: 134 / 72 Quality: Good Order Provider: SANJAY VALDEZ PROCEDURES: Echocardiographic Report: Transthoracic echocardiogram with complete 2D, M-Mode, color Dopplerexamination and Definity contrast. INDICATIONS: Persistent Atrial Fibrillation. MEASUREMENTS: 2D/MM Value Range Doppler ValueRange EF Mod BP 61 % [ 52 - 72 ] AV Mean PG 3mmHg EF Teich MM 52 % [ 52 - 72 ] AV Peak Boogie 1.18m/s [ 1.00 - 1.70 ] Estimated EF 60-65 % AV Peak PG 6mmHg LVIDd 2D 4.86 cm [ 4.20 - 5.80 ] AV VTI 21.31cm LVIDd MM 6.14 cm [ 4.20 - 5.80 ] LVOT Peak Boogie 0.96m/s [ 0.70 - 1.10 ] LVIDs 2D 3.13 cm [ 2.50 - 4.00 ] LVOT VTI 17.09cm LVIDs MM 4.45 cm [ 2.50 - 4.00 ] MV E Peak Boogie 1.08m/s [ 0.60 - 1.30 ] LVPWd MM 1.17 cm [ 0.60 - 1.00 ] MV Decel Time 190msec [ 104 - 258 ] IVSd 2D 0.75 cm [ 0.60 - 1.00 ] PV Peak Boogie 0.94m/s [ 0.40 - 0.80 ] IVSd MM 1.69 cm [ 0.60 - 1.00 ] TR Peak Boogie 2.89m/s [ 1.00 - 2.80 ] LA Dimension MM 5.62 cm [ 3.00 - 4.00 ] TR Peak PG 33mmHg AoR Diam MM 4.32 cm [ 3.10 - 3.70 ] RVSP 41.00mmHg [ 10.00 - 36.00 ] LA Volume Index 35 cc/m2 [ 16 - 34 ] Lateral E` 0.09m/s [ 0.10 - 0.15 ] E` 0.08 m/s E/E` 12 2D/MM Value Range Doppler ValueRange - FINDINGS: Interpretation Site: Exam was interpreted at [facility]. Left Ventricle: Normal left ventricular systolic function. No focal wall motionabnormalities. Normal left ventricular size. Definity contrast agent used to visually enhanceendocardial wall motion and contractility. Lot Number: [id number]. Mild concentric leftventricular hypertrophy. Indeterminate diastolic function. Ejection fraction ismeasured at 61 %. Ejection Fraction is visually estimated to be 60-65 %. Right Ventricle: Normal right ventricular systolic function. Mild enlargement of rightventricle. Left Atrium: There is moderate enlargement of left atrium. Right Atrium: There is moderate enlargement of right atrium. Atrial Septum: Normal atrial septum. Mitral Valve: Mild mitral annular calcification. Mild mitral valve regurgitation. Thereis no hemodynamically significant mitral stenosis by Doppler. Aortic Valve: No evidence of hemodynamically significant aortic stenosis by Doppler.Aortic cusps appear mildly sclerotic. Trileaflet aortic valve. Trace to mild aorticvalve regurgitation. Tricuspid Valve: Normal appearance of the tricuspid valve. Mild pulmonary hypertensionbased on right ventricular systolic pressure. Estimated peak RVSP is 41 mmHg. Mildtricuspid regurgitation. Pulmonic Valve: Normal appearance of the pulmonic valve. No pulmonic stenosis. Trivialregurgitation in the pulmonic valve. Pericardium: Normal pericardium with no significant pericardial effusion. Aorta: The aortic root is dilated. IVC: Normal size and normal respiratory collapse consistent with normal rightatrial pressure (<5 mmHg). CONCLUSIONS: Normal left ventricular systolic function. No focal wall motionabnormalities. Normal left ventricular size. Definity contrast agent used to visually enhanceendocardial wall motion and contractility. Lot Number: [id number]. Mild concentric leftventricular hypertrophy. Indeterminate diastolic function. Ejection fraction ismeasured at 61 %. Ejection Fraction is visually estimated to be 60-65 %. Normal right ventricular systolic function. Mild enlargement of rightventricle. There is moderate enlargement of left atrium. There is moderate enlargement of right atrium. Mild mitral annular calcification. Mild mitral valve regurgitation. Mild pulmonary hypertension based on right ventricular systolic pressure.Estimated peak RVSP is 41 mmHg. Mild tricuspid regurgitation. The aortic root is dilated. Atrial fibrillation. Electronically Signed By: Sanjay Valdez MD 12/20/2024 4:15:31 PM CDT Sanjay Valdez MD CV ECHO PROCEDURES Final Result * Electrocardiogram Report (10/24/2024 7:53 AM ISOLATION WASHER) Sanjay Valdez MD ECG ORDERABLES Final Res ult * (ABNORMAL) eGFR (03/28/2024 11:25 AM CDT) [...] was last reviewed 2021. Testing performed by: [facility], [facility] [address], [place] [address] Blood 03/28/2024 11:2 5 AM CDT 03/28/2024 12:07 PM CDT us Nereyda Ravi NP LAB BLOOD ORDERABLES Final Res ult BIPIN [id number] Department [place] [address] * (ABNORMAL) Hemoglobin A1c (02/18/2024 12:22 PM CDT) Hgb A1C 5.9(H) 4.0 - 5.6 % Estimated Average Glucose 123 mg/dL BIPIN Comment: The ADA recommends reporting an estimated Average Glucose (eAG) with all Hemoglobin A1c results using the equation derived from a study of 507 normal and diabetic adults. Minority populations were underrepresented and children were not included. (Diabetes Care 31:4348-9282, 2008). The eAG is not equivalent to a fasting glucose. Blood 02/18/2024 12:2 2 PM CDT 02/18/2024 12:22 PM CDT Crystal Harrell NP LAB BLOOD ORDERABLES Final Res ult Performing Organization Address [facility] Co de Phone Number BIPIN [id number] Department [place] [address] * Lipid panel (11/01/2019) SCRIBED Cholesterol, Total 158 <200 EXTERNAL LAB SCRIBED HDL 22 >40 EXTERNAL LAB SCRIBED LDL 82 <100 EXTERNAL LAB SCRIBED Triglycerides 262 <150 EXTERNAL LAB Blood specimen (specimen) Historical Provider MD LAB BLOOD ORDERABLES Edit ed Result - Final EXTERNAL LAB from Last 3 Months or Most Recently Relevant to Health Maintenance Insurance [employer] MEDICARE [facility] MEDICARE MEDICARE FOR LIFE Advance Directives For more information, please contact: [phone] * Full Code (Latest Code Status on File) Date Activated Date Inactivated Comments 07/14/2018 10:13 AM 07/14/2018 12:31 PM Care Teams Buffing Wheel Former Machine Relationship Specialty Start Date End Date Aj Tejeda MD [address] [facility] [address] [place] [address] PCP - General 10/06/18
--- OUTSIDE RECORDS SUMMARY | 2024-12-26 13:43 | XMS_ITS | Continuity of Care Document ---
Author Name [facility] Organization [facility] Care Team Providers Care Licensed Veterinary Technician Name Role Phone [facility] Unavailable Unavailable Problems Combined list of problems from Department of [facility] and Veterans Affairs facilities. It does not include entries that were removed or entered in error. 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 [facility] Coronary artery disease Active Condition [facility] Edema Active Condition [facility] Elevated blood-pressure reading without diagnosis of hypertension (SNOMED CT 747258840) Active Condition [facility] Exposure to potentially hazardous substance (SCT [id number]) Active Condition Dec 06 5 Entered By: MARELY GAYTAN Comment: Entered automatically through IRENE Problem List documentation program [facility] Family history of cancer of colon Active Condition [facility] Family history of prostate cancer Active Condition [facility] Hyperlipidemia Active Condition [facility] Neuropathy Active Condition [facility] 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 [facility] personal history of colon cancer Active Condition [facility] personal history of renal cancer Active Condition [facility] Renal cancer Active Condition [facility] flatus Active Condition [facility] ASTIGMATISM - REGULAR Active Condition DoD REFRACTIVE ERROR - HYPERMETROPIA Active Condition DoD DERMATOCHALASIS BOTH EYES Active Condition DoD CATARACT SENILE NUCLEAR Active Condition DoD PRESBYOPIA Active Condition DoD dehiscence of surgical wound Active Condition DoD Aftercare Following Surgery Inactive Condition DoD COLON CANCER Active Condition DoD SINUSITIS Active Condition DoD pain during urination (dysuria) Active Condition DoD visit for: administrative purpose Active Condition DoD UPPER RESPIRATORY INFECTION Active Condition Pt to take medication as Rx, to drink plenty of fluids, to use cough gtts liberally and to follow-up if sx are not getting better in 3-5 days. [facility] Laboratory Studies Active Condition [facility] NORMAL ROUTINE HISTORY AND PHYSICAL ADULT (18-65) Active Condition wnl exam, discussed lifestyle changes, diet, exercise, increase water intake and f/u plan for three month eval. Pt understands. [facility] HEARING LOSS Active Condition med tri al - due to pruritis, pt to have hearing eval and [facility]. 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 Consult for General Surgery entered. [facility] visit for: laboratory Active Condition [facility] ARTHRITIS Active Condition [facility] Patient Education Active Condition Di scussed the importance of getting completely tobacco-free as soon as possible. Reminded him that he only has one more prescription of Chantix coming to him. Discussed avoiding drinking at the [employer] for some time. His term off office ends Jan. [facility] NICOTINE DEPENDENCE Active Condition Refill for Chantix. 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 Medication Details Route Status Patient Instructions Prescription Expires Prescription Number Last Dispense Date Ordering Provider Order Date Order Qty Source ALBUTEROL (CFC-F) INHL,ORAL INHALE BY ORAL INHALATI ON FOUR TIMES A DAY RESPIR ATORY (INHAL ATION) ACTIVE Vero JONES 2024 [facility] N ALBUTEROL SULFATE HFA (albuterol sulfate), 90 MCG, HFA AER AD, INHALATION, TEVA [place], 8.5 g CANISTER Active [id number] 2023 25.5 Pharmac y Data Transac tion Service Facilit y AMIODARONE HCL (PACERONE) 200MG TAB TAKE ONE-HALF TABLET BY MOUTH ONCE A DAY ORAL ACTIVE LECTURE,Vero Glaser 2024 [facility] Garcia APIXABAN 5MG TAB TAKE ONE TABLET BY MOUTH TWICE A DAY ORAL ACTIVE LECTURE,Vero Glaser 2024 [facility] N ASCORBIC ACID 500MG TAB TAKE ONE TABLET BY MOUTH ONCE A DAY ORAL ACTIVE Nadine GREENE 2012 [facility] CEPHALEXIN (CEPHALEXIN MONOHYDRATE ), 500MG, CAPSULE, ORAL, TEVA [place], 500 ea. BOTTLE Active [id number] 2023 60 Pharmac y Data Transac tion Service Facilit y CEPHALEXIN (CEPHALEXIN MONOHYDRATE ), 500MG, CAPSULE, ORAL, TEVA [place], 500 ea. BOTTLE Active [id number] 2023 60 Pharmac y Data Transac tion Service Facilit y CHOLECALCIF KELLY (LOW DOSE VIT D) - (OTC) TAB TAKE BY MOUTH ONCE A DAY ORAL ACTIVE LECTURE,Vero Glaser 2024 [facility] N CYCLOSPORIN E (cyclospori ne), 0.05 %, DROPERETTE, OPHTHALMIC, APOTEX BECKY, 30 ea. VIAL Active [id number] 4 2023 180 Pharmac y Data Transac tion Service Facilit y CYCLOSPORIN E (cyclospori ne), 0.05 %, DROPERETTE, OPHTHALMIC, APOTEX BECKY, 60 ea. VIAL Cancele d [id number] : 2023 0 Pharmac y Data Transac tion Service Facilit y CYCLOSPORIN E (cyclospori ne), 0.05 %, DROPERETTE, OPHTHALMIC, APOTEX BECKY, 60 ea. VIAL Active [id number] 2023 180 Pharmac y Data Transac tion Service Facilit y CYCLOSPORIN E (cyclospori ne), 0.05 %, DROPERETTE, OPHTHALMIC, APOTEX BECKY, 60 ea. VIAL Cancele d [id number] : 2023 0 Pharmac y Data Transac tion Service Facilit y ELIQUIS (APIXABAN), 5 MG, TABLET, ORAL, BMS PRIMARYCARE , 60 ea. BOTTLE Active [id number] 2023 90 Pharmac y Data Transac tion Service Facilit y ELIQUIS (APIXABAN), 5 MG, TABLET, ORAL, BMS PRIMARYCARE , 60 ea. BOTTLE Active [id number] 2023 180 Pharmac y Data Transac tion Service Facilit y ELIQUIS (APIXABAN), 5 MG, TABLET, ORAL, BMS PRIMARYCARE , 60 ea. BOTTLE Active [id number] 2023 180 Pharmac y Data Transac tion Service Facilit y ELIQUIS (APIXABAN), 5 MG, TABLET, ORAL, BMS PRIMARYCARE , 60 ea. BOTTLE Cancele d [id number] : 2023 0 Pharmac y Data Transac tion Service Facilit y FENOFIBRATE 48MG TAB TAKE ONE TABLET BY MOUTH ONCE A DAY ORAL ACTIVE Vero JONES 2024 [facility] ESPER[facility] N FINASTERIDE (FINASTERID E), 5 MG, TABLET, ORAL, CAMBER PHARMACE, 30 ea. BOTTLE Active [id number] 2023 90 Pharmac y Data Transac tion Service Facilit y FISH OIL 1000MG (500MG DHA/EPA) CAP,ORAL TAKE 1 CAPSULE BY MOUTH TWICE A DAY ORAL ACTIVE Nadine GREENE 2012 [facility] FUROSEMIDE (furosemide ), 20 MG, TABLET, ORAL, AVKARE, 1000 ea. BOTTLE Active [id number] 2023 90 Pharmac y Data Transac tion Service Facilit y FUROSEMIDE (furosemide ), 20 MG, TABLET, ORAL, AVKARE, 1000 ea. BOTTLE Active [id number] 2023 90 Pharmac y Data Transac tion Service Facilit y FUROSEMIDE 20MG TAB TAKE ONE TABLET BY MOUTH EVERY MORNING ORAL ACTIVE LECTURE,Vero Glaser 2024 [facility] Garcia GABAPENTIN (gabapentin ), 100 MG, CAPSULE, ORAL, XLCARE PHARMACE, 500 ea. BOTTLE Active [id number] 2023 180 Pharmac y Data Transac tion Service Facilit y GABAPENTIN 300MG CAP TAKE 2 CAPSULES BY MOUTH AT BEDTIME ORAL ACTIVE SRUTHI CIFUENTES 2013 [facility] OLODATEROL 2.5MCG/TIOT ROPIUM 2.5MCG/ACTU AT [facility],ORAL,6 0D,4GM INHALE 2 PUFFS BY ORAL INHALATI ON ONCE A DAY RESPIR ATORY (INHAL ATION) ACTIVE LECTURE,Vero Glaser 2024 [facility] N PANTOPRAZOL E SODIUM (pantoprazo le sodium), 40 MG, TABLET DR, ORAL, [employer] [facility] 1000 ea. BOTTLE Active [id number] 2023 90 Pharmac y Data Transac tion Service Facilit y POTASSIUM CHLORIDE 20MEQ TAB,SA (DISPERSIBL E) TAKE ONE-HALF TABLET BY MOUTH ONCE A DAY ORAL ACTIVE LECTURE,Vero Glaser 2024 [facility] N SULFAMETHOX AZOLE-TRIME THOPRIM (SULFAMETHO XAZOLE/TRIM ETHOPRIM), 800-160MG, TABLET, ORAL, AUROBINDO PHARM, 500 ea. BOTTLE Active [id number] 2023 14 Pharmac y Data Transac tion Service Facilit y TAMSULOSIN HCL (TAMSULOSIN HCL), 0.4 MG, CAP.SR 24H, ORAL, ZYDUS PHARMACEU, 1000 ea. BOTTLE Active [id number] 2023 90 Pharmac y Data Transac tion Service Facilit y TAMSULOSIN HCL (TAMSULOSIN HCL), 0.4 MG, CAP.SR 24H, ORAL, ZYDUS PHARMACEU, 1000 ea. BOTTLE Active [id number] 2023 90 Pharmac y Data Transac tion Service Facilit y Allergies, Adverse Reactions, Alerts Combined list of allergies from Department of Defense and Veterans Affairs facilities. It does not include entries that were removed or entered in error. Substance Category Reaction Severity Reaction type Status Date Reported Comments Source ANALGESIC(O PIOD) [facility] Drug allergy (disorder) Delirium active [address] [place] [address] MORPHINE Propensity to adverse reactions to drug (finding) Delirium active [address] [place] [address] DIVISION Immunizations Combined list of available immunizations from the Department of Defense and Veterans Affairs facilities. Immunization Series Date Given Administered By Site Reaction Lot Number CVX Code Drug Science Professor Status Comments Source COVID-19, mRNA, LNP-S, PF, 100 mcg or 50 mcg dose 2021 LUIS MIGUEL, [employer] (MOD) Not Given COVID-19, mRNA, LNP-S, PF, 100 mcg or 50 mcg dose DoD influenza, high-dose, quadrivalent 2021 LUIS MIGUEL, () Not Given influenza , high-dose , quadrival ent DoD COVID-19, mRNA, LNP-S, PF, 100 mcg or 50 mcg dose 2020 ELAINE, () Not Given COVID-19, mRNA, LNP-S, PF, 100 mcg or 50 mcg dose DoD COVID-19, mRNA, LNP-S, PF, 100 mcg or 50 mcg dose 2020 ELAINE, [employer] (MOD) Not Given COVID-19, mRNA, LNP-S, PF, 100 mcg or 50 mcg dose DoD PNEUMOCOCCAL CONJUGATE PCV 13 2014 133 complet ed [facility] INFLUENZA, UNSPECIFIED FORMULATION 2013 88 complet ed [facility] INFLUENZA, UNSPECIFIED FORMULATION 2012 88 complet ed [facility] INFLUENZA, UNSPECIFIED FORMULATION 2012 88 complet ed [facility] ZOSTER LIVE 2012 121 complet ed [facility] PNEUMOCOCCAL, UNSPECIFIED FORMULATION 2012 109 complet ed [facility] TDAP 2011 115 complet ed [facility] Results Combined list of recent chemistry, hematology and other laboratory results from Department of Defense and Veterans Affairs, ranging from 15 months to all on record, depending upon the facility. Order Name Results Value Reference Range Date Interpretation Specimen Comments Source URINALYS IS (STL-PB) COLOR OF URINE Light-Ye llow 12/05 Specimen Type: URINE No comment entered. Ordering Provider: MAUREEN AGUILLON Report Released Date/Time: Dec 04, 2024 08:48 AM Reporting Lab: [facility] [address] [place] [address] Performing Lab: [address] [address] [facility] URINALYS IS (STL-PB) BILIRUBIN. TOTAL [PRESENCE] IN URINE BY TEST STRIP Negative mg/dL 12/05 Specimen Type: URINE No comment entered. Ordering Provider: MAUREEN AGUILLON Report Released Date/Time: Dec 04, 2024 08:48 AM Reporting Lab: [facility] [address] [place] [address] Performing Lab: [address] [address] [facility] URINALYS IS (STL-PB) PH OF URINE BY TEST STRIP 6.0 5.0 - 8.0 12/05 Specimen Type: URINE No comment entered. Ordering Provider: MAUREEN AGUILLON Report Released Date/Time: Dec 04, 2024 08:48 AM Reporting Lab: [facility] [address] [place] [address] Performing Lab: [address] [address] [facility] URINALYS IS (STL-PB) APPEARANCE OF URINE Clear 12/05 Specimen Type: URINE No comment entered. Ordering Provider: MAUREEN AGUILLON Report Released Date/Time: Dec 04, 2024 08:48 AM Reporting Lab: [place] [id number] [place] [address] Performing Lab: [place] [address] [facility] [address] [facility] URINALYS IS (STL-PB) NITRITE [PRESENCE] IN URINE BY TEST STRIP Negative mg/dL 12/05 Specimen Type: URINE No comment entered. Ordering Provider: MAUREEN AGUILLON Report Released Date/Time: Dec 04, 2024 08:48 AM Reporting Lab: [place] [address] [facility] [address] Performing Lab: [place] [address] [facility] [address] [facility] URINALYS IS (STL-PB) GLUCOSE [MASS/VOLU ME] IN URINE BY TEST STRIP Normalmg /dL 12/05 Specimen Type: URINE No comment entered. Ordering Provider: MAUREEN AGUILLON Report Released Date/Time: Dec 04, 2024 08:48 AM Reporting Lab: [place] [address] [facility] [address] Performing Lab: [address] [address] [facility] URINALYS IS (STL-PB) PROTEIN [MASS/VOLU ME] IN URINE BY TEST STRIP Negative mg/dL 12/05 Specimen Type: URINE No comment entered. Ordering Provider: MAUREEN AGUILLON Report Released Date/Time: Dec 04, 2024 08:48 AM Reporting Lab: [place] [address] [facility] [address] Performing Lab: [address] [address] [facility] URINALYS IS (STL-PB) URN.UROBIL INOGEN Normalmg /dL 12/05 Specimen Type: URINE No comment entered. Ordering Provider: MAUREEN AGUILLON Report Released Date/Time: Dec 04, 2024 08:48 AM Reporting Lab: [place] [address] [facility] [address] Performing Lab: [facility] [address] [facility] [address] [facility] URINALYS IS (STL-PB) HEMOGLOBIN [MASS/VOLU ME] IN URINE BY TEST STRIP Negative mg/dL 12/05 Specimen Type: URINE No comment entered. Ordering Provider: MAUREEN AGUILLON Report Released Date/Time: Dec 04, 2024 08:48 AM Reporting Lab: [place] [address] [facility] [address] Performing Lab: [place] [address] [facility] [address] [facility] URINALYS IS (STL-PB) KETONES [MASS/VOLU ME] IN URINE BY TEST STRIP Negative mg/dL 12/05 Specimen Type: URINE No comment entered. Ordering Provider: MAUREEN AGUILLON Report Released Date/Time: Dec 04, 2024 08:48 AM Reporting Lab: [place] [address] [facility] [address] Performing Lab: [place] [address] [facility] [address] [facility] URINALYS IS (STL-PB) URN.LEUK.E ST. Negative mg/dL 12/05 Specimen Type: URINE No comment entered. Ordering Provider: MAUREEN AGUILLON Report Released Date/Time: Dec 04, 2024 08:48 AM Reporting Lab: [place] [address] [facility] [address] Performing Lab: [place] [address] [facility] [address] [facility] URINALYS IS (STL-PB) SPECIFIC GRAVITY OF URINE 1.012 12/05 Specimen Type: URINE No comment entered. Ordering Provider: MAUREEN AGUILLON Report Released Date/Time: Dec 04, 2024 08:48 AM Reporting Lab: [place] [address] [facility] [address] Performing Lab: [facility] [address] [facility] [address] [facility] COMPREHE NSIVE METABOLI C PANEL CREATININE [MASS/VOLU ME] IN SERUM OR PLASMA 1.76 mg/dL 0.7 - 1.3 12/05 H Specimen Type: PLASMA Comment: LDL calculation invalid when Triglycerid e exceeds 250 mg/dl No hemolysis noted. Ordering Provider: MAUREEN AGUILLON Report Released Date/Time: Dec 04, 2024 08:48 AM Reporting Lab: [address] [address] Performing Lab: [phone] [place] [address] COMPREHE NSIVE METABOLI C PANEL UREA NITROGEN [MASS/VOLU ME] IN SERUM OR PLASMA 21.5 mg/dL 9.0 - 25.0 12/05 Specimen Type: PLASMA Comment: LDL calculation invalid when Triglycerid e exceeds 250 mg/dl No hemolysis noted. Ordering Provider: MAUREEN AGUILLON Report Released Date/Time: Dec 04, 2024 08:48 AM Reporting Lab: [address] [address] Performing Lab: [address] [address] [facility] COMPREHE NSIVE METABOLI C PANEL GLUCOSE [MASS/VOLU ME] IN SERUM OR PLASMA 96 mg/dL 72 - 99 12/05 Specimen Type: PLASMA Comment: LDL calculation invalid when Triglycerid e exceeds 250 mg/dl No hemolysis noted. Ordering Provider: MAUREEN AGUILLON Report Released Date/Time: Dec 04, 2024 08:48 AM Reporting Lab: [address] [address] Performing Lab: [address] [address] [facility] COMPREHE NSIVE METABOLI C PANEL SODIUM [MOLES/VOL UME] IN SERUM OR PLASMA 138 meq/L 136 - 145 12/05 Specimen Type: PLASMA Comment: LDL calculation invalid when Triglycerid e exceeds 250 mg/dl No hemolysis noted. Ordering Provider: MAUREEN AGUILLON Report Released Date/Time: Dec 04, 2024 08:48 AM Reporting Lab: [facility] [address] [facility] [address] Performing Lab: [place] [address] [facility] [address] [facility] COMPREHE NSIVE METABOLI C PANEL POTASSIUM [MOLES/VOL UME] IN SERUM OR PLASMA 4.5 meq/L 3.5 - 5 12/05 Specimen Type: PLASMA Comment: LDL calculation invalid when Triglycerid e exceeds 250 mg/dl No hemolysis noted. Ordering Provider: MAUREEN AGUILLON Report Released Date/Time: Dec 04, 2024 08:48 AM Reporting Lab: [place] [address] [facility] [address] Performing Lab: [place] [address] [facility] [address] [facility] COMPREHE NSIVE METABOLI C PANEL CHLORIDE [MOLES/VOL UME] IN SERUM OR PLASMA 103 meq/L 98 - 107 12/05 Specimen Type: PLASMA Comment: LDL calculation invalid when Triglycerid e exceeds 250 mg/dl No hemolysis noted. Ordering Provider: MAUREEN AGUILLON Report Released Date/Time: Dec 04, 2024 08:48 AM Reporting Lab: [place] [address] [facility] [address] Performing Lab: [place] [address] [facility] [address] [facility] COMPREHE NSIVE METABOLI C PANEL CARBON DIOXIDE, TOTAL [MOLES/VOL UME] IN SERUM OR PLASMA 29 meq/L 22 - 31 12/05 Specimen Type: PLASMA Comment: LDL calculation invalid when Triglycerid e exceeds 250 mg/dl No hemolysis noted. Ordering Provider: MAUREEN AGUILLON Report Released Date/Time: Dec 04, 2024 08:48 AM Reporting Lab: [facility] [address] [facility] [address] Performing Lab: [facility] [address] [facility] [address] [facility] COMPREHE NSIVE METABOLI C PANEL CALCIUM [MASS/VOLU ME] IN SERUM OR PLASMA 10.1 mg/dL 8.4 - 10.4 12/05 Specimen Type: PLASMA Comment: LDL calculation invalid when Triglycerid e exceeds 250 mg/dl No hemolysis noted. Ordering Provider: MAUREEN AGUILLON Report Released Date/Time: Dec 04, 2024 08:48 AM Reporting Lab: [address] [address] Performing Lab: [place] [address] [facility] [address] [facility] COMPREHE NSIVE METABOLI C PANEL PROTEIN [MASS/VOLU ME] IN SERUM OR PLASMA 7.4 g/dL 6 - 8.6 12/05 Specimen Type: PLASMA Comment: LDL calculation invalid when Triglycerid e exceeds 250 mg/dl No hemolysis noted. Ordering Provider: MAUREEN AGUILLON Report Released Date/Time: Dec 04, 2024 08:48 AM Reporting Lab: [facility] [address] [facility] [address] Performing Lab: [facility] [address] [facility] [address] [facility] COMPREHE NSIVE METABOLI C PANEL ALBUMIN [MASS/VOLU ME] IN SERUM OR PLASMA 4.2 g/dL 3.4 - 5 12/05 Specimen Type: PLASMA Comment: LDL calculation invalid when Triglycerid e exceeds 250 mg/dl No hemolysis noted. Ordering Provider: MAUREEN AGUILLON Report Released Date/Time: Dec 04, 2024 08:48 AM Reporting Lab: [facility] [address] [place] [address] Performing Lab: [facility] [address] [facility] [address] [facility] COMPREHE NSIVE METABOLI C PANEL BILIRUBIN. TOTAL [MASS/VOLU ME] IN SERUM OR PLASMA 0.4 mg/dL 0.2 - 1.2 12/05 Specimen Type: PLASMA Comment: LDL calculation invalid when Triglycerid e exceeds 250 mg/dl No hemolysis noted. Ordering Provider: MAUREEN AGUILLON Report Released Date/Time: Dec 04, 2024 08:48 AM Reporting Lab: [place] [address] [place] [address] Performing Lab: [place] [address] COMPREHE NSIVE METABOLI C PANEL ALKALINE PHOSPHATAS E [ENZYMATIC ACTIVITY/V OLUME] IN SERUM OR PLASMA 72 U/L 40 - 150 12/05 Specimen Type: PLASMA Comment: LDL calculation invalid when Triglycerid e exceeds 250 mg/dl No hemolysis noted. Ordering Provider: MAUREEN AGUILLON Report Released Date/Time: Dec 04, 2024 08:48 AM Reporting Lab: [place] [address] [place] [address] Performing Lab: [place] [address] [place] [id number] COMPREHE NSIVE METABOLI C PANEL ASPARTATE AMINOTRANS FERASE [ENZYMATIC ACTIVITY/V OLUME] IN SERUM OR PLASMA 18 U/L 5 - 34 12/05 Specimen Type: PLASMA Comment: LDL calculation invalid when Triglycerid e exceeds 250 mg/dl No hemolysis noted. Ordering Provider: MAUREEN AGUILLON Report Released Date/Time: Dec 04, 2024 08:48 AM Reporting Lab: [place] [address] [facility] [address] Performing Lab: [place] [address] [place] [id number] COMPREHE NSIVE METABOLI C PANEL ALANINE AMINOTRANS FERASE [ENZYMATIC ACTIVITY/V OLUME] IN SERUM OR PLASMA 21 U/L 8 - 40 12/05 Specimen Type: PLASMA Comment: LDL calculation invalid when Triglycerid e exceeds 250 mg/dl No hemolysis noted. Ordering Provider: MAUREEN AGUILLON Report Released Date/Time: Dec 04, 2024 08:48 AM Reporting Lab: [address] [address] Performing Lab: [place] [address] [facility] [address] [facility] COMPREHE NSIVE METABOLI C PANEL GLOMERULAR FILTRATION RATE/1.73 SQ M.PREDICTE D [VOLUME RATE/AREA] IN SERUM, PLASMA OR BLOOD BY CREATININE -BASED FORMULA (CKD-EPI 2020) 38.4 60 12/05 Specimen Type: PLASMA Comment: LDL calculation invalid when Triglycerid e exceeds 250 mg/dl No hemolysis noted. Ordering Provider: MAUREEN AGUILLON Report Released Date/Time: Dec 04, 2024 08:48 AM Reporting Lab: [address] [address] Performing Lab: [place] [address] [facility] [address] [facility] CBC LEUKOCYTES [#/VOLUME] IN BLOOD BY AUTOMATED COUNT 11.5 10*3/uL 3.6 - 11.2 12/05 H Specimen Type: BLOOD No comment entered. Ordering Provider: MAUREEN AGUILLON Report Released Date/Time: Dec 04, 2024 08:48 AM Reporting Lab: [address] [address] Performing Lab: [place] [address] [facility] [address] [facility] CBC ERYTHROCYT ES [#/VOLUME] IN BLOOD BY AUTOMATED COUNT 5.55 10*6/uL 4.10 - 5.70 12/05 Specimen Type: BLOOD No comment entered. Ordering Provider: MAUREEN AGUILLON Report Released Date/Time: Dec 04, 2024 08:48 AM Reporting Lab: [address] [address] Performing Lab: [address] [address] [facility] CBC HEMOGLOBIN [MASS/VOLU ME] IN BLOOD 13.4 g/dL 13.1 - 16.8 12/05 Specimen Type: BLOOD No comment entered. Ordering Provider: MAUREEN AGUILLON Report Released Date/Time: Dec 04, 2024 08:48 AM Reporting Lab: [address] [address] Performing Lab: [address] [address] [facility] CBC HEMATOCRIT [VOLUME FRACTION] OF BLOOD 46.1 38.2 - 48.4 12/05 Specimen Type: BLOOD No comment entered. Ordering Provider: MAUREEN AGUILLON Report Released Date/Time: Dec 04, 2024 08:48 AM Reporting Lab: [address] [address] Performing Lab: [address] [address] [facility] CBC MCV [ENTITIC VOLUME] BY AUTOMATED COUNT 83.1 fL 80.0 - 100.0 12/05 Specimen Type: BLOOD No comment entered. Ordering Provider: MAUREEN AGUILLON Report Released Date/Time: Dec 04, 2024 08:48 AM Reporting Lab: [address] [address] Performing Lab: [address] [address] [facility] CBC MCH [ENTITIC MASS] BY AUTOMATED COUNT 24.1 pg 27.0 - 34.0 12/05 L Specimen Type: BLOOD No comment entered. Ordering Provider: MAUREEN AGUILLON Report Released Date/Time: Dec 04, 2024 08:48 AM Reporting Lab: [address] [address] Performing Lab: [address] [address] [facility] CBC MCHC [MASS/VOLU ME] BY AUTOMATED COUNT 29.1 g/dL 33.0 - 36.0 12/05 L Specimen Type: BLOOD No comment entered. Ordering Provider: MAUREEN AGUILLON Report Released Date/Time: Dec 04, 2024 08:48 AM Reporting Lab: [address] [address] Performing Lab: [place] [id number] CBC PLATELETS [#/VOLUME] IN BLOOD BY AUTOMATED COUNT 413 10*3/uL 150 - 400 12/05 H Specimen Type: BLOOD No comment entered. Ordering Provider: MAUREEN AGUILLON Report Released Date/Time: Dec 04, 2024 08:48 AM Reporting Lab: [address] [address] Performing Lab: [address] [phone] [place] [address] CBC PLATELET MEAN VOLUME [ENTITIC VOLUME] IN BLOOD BY AUTOMATED COUNT 9.2 fL 7.5 - 11.2 12/05 Specimen Type: BLOOD No comment entered. Ordering Provider: MAUREEN AGUILLON Report Released Date/Time: Dec 04, 2024 08:48 AM Reporting Lab: [address] [address] Performing Lab: [address] [address] [facility] CBC ERYTHROCYT E DISTRIBUTI ON WIDTH [RATIO] BY AUTOMATED COUNT 20.1 11.8 - 15.1 12/05 H Specimen Type: BLOOD No comment entered. Ordering Provider: MAUREEN AGUILLON Report Released Date/Time: Dec 04, 2024 08:48 AM Reporting Lab: [address] [address] Performing Lab: [address] [address] [facility] CBC LYMPHOCYTE S/100 LEUKOCYTES IN BLOOD BY AUTOMATED COUNT 23 12/05 Specimen Type: BLOOD No comment entered. Ordering Provider: MAUREEN AGUILLON Report Released Date/Time: Dec 04, 2024 08:48 AM Reporting Lab: [facility] [address] [address] Performing Lab: [facility] [address] [address] [facility] CBC MONOCYTES/ 100 LEUKOCYTES IN BLOOD BY AUTOMATED COUNT 8 12/05 Specimen Type: BLOOD No comment entered. Ordering Provider: MAUREEN AGUILLON Report Released Date/Time: Dec 04, 2024 08:48 AM Reporting Lab: [facility] [address] [address] Performing Lab: [facility] [address] [address] [facility] CBC NEUTROPHIL S/100 LEUKOCYTES IN BLOOD BY AUTOMATED COUNT 67 12/05 Specimen Type: BLOOD No comment entered. Ordering Provider: MAUREEN AGUILLON Report Released Date/Time: Dec 04, 2024 08:48 AM Reporting Lab: [facility] [address] [place] [address] Performing Lab: [facility] [address] [address] [facility] CBC EOSINOPHIL S/100 LEUKOCYTES IN BLOOD BY AUTOMATED COUNT 1 12/05 Specimen Type: BLOOD No comment entered. Ordering Provider: MAUREEN AGUILLON Report Released Date/Time: Dec 04, 2024 08:48 AM Reporting Lab: [facility] [address] [place] [address] Performing Lab: [facility] [address] [address] [facility] CBC BASOPHILS/ 100 LEUKOCYTES IN BLOOD BY AUTOMATED COUNT 1 12/05 Specimen Type: BLOOD No comment entered. Ordering Provider: MAUREEN AGUILLON Report Released Date/Time: Dec 04, 2024 08:48 AM Reporting Lab: [place] [address] [facility] [address] Performing Lab: [place] [address] [address] [facility] CBC LYMPHOCYTE S [#/VOLUME] IN BLOOD BY AUTOMATED COUNT 2.62 10*3/uL 0.77 - 4.50 12/05 Specimen Type: BLOOD No comment entered. Ordering Provider: MAUREEN AGUILLON Report Released Date/Time: Dec 04, 2024 08:48 AM Reporting Lab: [place] [address] [place] [phone] Performing Lab: [place] [address] [place] [phone] [facility] CBC MONOCYTES [#/VOLUME] IN BLOOD BY AUTOMATED COUNT 0.87 10*3/uL 0.19 - 0.80 12/05 H Specimen Type: BLOOD No comment entered. Ordering Provider: MAUREEN AGUILLON Report Released Date/Time: Dec 04, 2024 08:48 AM Reporting Lab: [place] [address] [address] Performing Lab: [place] [address] [address] [facility] CBC NEUTROPHIL S [#/VOLUME] IN BLOOD BY AUTOMATED COUNT 7.70 10*3/uL 2.10 - 8.00 12/05 Specimen Type: BLOOD No comment entered. Ordering Provider: MAUREEN AGUILLON Report Released Date/Time: Dec 04, 2024 08:48 AM Reporting Lab: [place] [address] [address] Performing Lab: [address] [address] [facility] CBC EOSINOPHIL S [#/VOLUME] IN BLOOD BY AUTOMATED COUNT 0.12 10*3/uL 0.00 - 0.60 12/05 Specimen Type: BLOOD No comment entered. Ordering Provider: MAUREEN AGUILLON Report Released Date/Time: Dec 04, 2024 08:48 AM Reporting Lab: [address] [address] Performing Lab: [facility] [address] [place] [address] [facility] CBC BASOPHILS [#/VOLUME] IN BLOOD BY AUTOMATED COUNT 0.09 10*3/uL 0.00 - 0.20 12/05 Specimen Type: BLOOD No comment entered. Ordering Provider: MAUREEN AGUILLON Report Released Date/Time: Dec 04, 2024 08:48 AM Reporting Lab: [address] [address] Performing Lab: [address] [address] [facility] LIPID PANEL (STL) CHOLESTERO L [MASS/VOLU ME] IN SERUM OR PLASMA 209 mg/dL 0 - 200 12/05 H Specimen Type: PLASMA Comment: LDL calculation invalid when Triglycerid e exceeds 250 mg/dl No hemolysis noted. Ordering Provider: MAUREEN AGUILLON Report Released Date/Time: Dec 04, 2024 08:48 AM Reporting Lab: [address] [address] Performing Lab: [address] [address] [facility] LIPID PANEL (STL) TRIGLYCERI DE [MASS/VOLU ME] IN SERUM OR PLASMA 296 mg/dL 0 - 150 12/05 H Specimen Type: PLASMA Comment: LDL calculation invalid when Triglycerid e exceeds 250 mg/dl No hemolysis noted. Ordering Provider: MAUREEN AGUILLON Report Released Date/Time: Dec 04, 2024 08:48 AM Reporting Lab: [address] [address] Performing Lab: [address] [address] [facility] LIPID PANEL (STL) CHOLESTERO L IN LDL [MASS/VOLU ME] IN SERUM OR PLASMA BY DIRECT ASSAY 151 mg/dL 100 12/05 Specimen Type: PLASMA Comment: LDL calculation invalid when Triglycerid e exceeds 250 mg/dl No hemolysis noted. Ordering Provider: MAUREEN AGUILLON Report Released Date/Time: Dec 04, 2024 08:48 AM Reporting Lab: [place] [address] [place] [address] Performing Lab: [place] [address] LIPID PANEL (STL) CHOLESTERO L IN LDL [MASS/VOLU ME] IN SERUM OR PLASMA BY CALCULATIO N commentm g/dL 12/05 Specimen Type: PLASMA Comment: LDL calculation invalid when Triglycerid e exceeds 250 mg/dl No hemolysis noted. Ordering Provider: MAUREEN AGUILLON Report Released Date/Time: Dec 04, 2024 08:48 AM Reporting Lab: [place] [address] [place] [phone] Performing Lab: [place] [address] [place] [phone] LIPID PANEL (STL) CHOLESTERO L IN HDL [MASS/VOLU ME] IN SERUM OR PLASMA 29 mg/dL 40 12/05 L Specimen Type: PLASMA Comment: LDL calculation invalid when Triglycerid e exceeds 250 mg/dl No hemolysis noted. Ordering Provider: MAUREEN AGUILLON Report Released Date/Time: Dec 04, 2024 08:48 AM Reporting Lab: [place] [address] [place] [phone] Performing Lab: [place] [address] HGA1C HEMOGLOBIN A1C/HEMOGL OBIN.TOTAL IN BLOOD 6.2 4.0 - 6.0 12/05 H Specimen Type: BLOOD No comment entered. Ordering Provider: MAUREEN AGUILLON Report Released Date/Time: Dec 04, 2024 08:48 AM Reporting Lab: [place] [address] [place] [address] Performing Lab: [place] [address] PROST. SPECIFIC AG.(PB-S TL) PROSTATE SPECIFIC AG [MASS/VOLU ME] IN SERUM OR PLASMA 1.519 ng/mL 0 - 4 12/05 Specimen Type: SERUM Comment: The listed sex of this patient may not be a typical indication for this test. Therefore, reference ranges or interpretiv e criteria listed may not be valid. Clinical correlation suggested. Ordering Provider: MAUREEN AGUILLON Report Released Date/Time: Dec 04, 2024 08:48 AM Reporting Lab: [place] [address] Performing Lab: [place] [address] HEP C Ab HCV Ab (STL) HEPATITIS C VIRUS AB [PRESENCE] IN SERUM Nonreact charbel 12/05 Specimen Type: SERUM Comment: The listed sex of this patient may not be a typical indication for this test. Therefore, reference ranges or interpretiv e criteria listed may not be valid. Clinical correlation suggested. Ordering Provider: MAUREEN AGUILLON Report Released Date/Time: Dec 04, 2024 08:48 AM Reporting Lab: [place] [address] [place] [address] Performing Lab: [place] [address] TSH W/ REFLEX FT4 (L) THYROTROPI N [UNITS/VOL UME] IN SERUM OR PLASMA 3.793 u[IU]/mL 0.47 - 5 12/05 Specimen Type: PLASMA No comment entered. Ordering Provider: MAUREEN AGUILLON Report Released Date/Time: Dec 04, 2024 08:48 AM Reporting Lab: [place] [address] Performing Lab: [place] [address] [facility] [address] [facility] Vital Signs Combined list of inpatient and outpatient Vital Signs from Department of Defense and Veterans Affairs, ranging from 12 months to all on record, depending upon the facility. Vital Sign Value Date Comments Source SYSTOLIC BLOOD PRESSURE 145 12/05/2024 12:38:48 [facility] DIASTOLIC BLOOD PRESSURE 84 12/05/2024 12:38:48 [facility] PULSE OXIMETRY 97 12/05/2024 12:38:[address] [facility] WEIGHT 307.2 12/05/2024 12:38:48 [facility] BMI 41 kg/m2 12/05/2024 12:38:48 [facility] PAIN 6 12/05/2024 12:38:48 [facility] HEIGHT 73 12/05/2024 12:38:48 [facility] TEMPERATURE 98.3 12/05/2024 12:38:48 [facility] PULSE 75 12/05/2024 12:38:48 [facility] RESPIRATION 20 12/05/2024 12:38:48 [facility] SYSTOLIC BLOOD PRESSURE 137 11/29/2024 12:53:56 [facility] DIASTOLIC BLOOD PRESSURE 84 11/29/2024 12:53:56 [facility] PULSE OXIMETRY 97 11/29/2024 12:53:56 [facility] WEIGHT 307.7 11/29/2024 12:53:56 [facility] BMI 41 kg/m2 11/29/2024 12:53:56 [facility] PAIN 0 11/29/2024 12:53:56 [facility] TEMPERATURE 98.2 11/29/2024 12:53:56 [facility] PULSE 83 11/29/2024 12:53:[facility] RESPIRATION 16 11/29/2024 12:53:56 [facility] Encounters Combined list of: 1) Encounters from Department of Veterans Affairs facilities going backup to the last 18 months, not all VA inpatient encounters are included; 2) Encounters from the Department of Defense facilities going backup to 280 months. Location Location Details Encounter Type Encounter Number Reason For Visit Attending Provider ADM Date DC Date Status Disposition Source [address] [place] [address] Amando [facility] Non-GME FHI1) OUTPATIENT [id number] stop smoking CYNDY LINARES P 12/15 Released w/o Limitations [address] [place] [address] Amando [facility]F amily Practic e Non-GME FHI1) [address] [place] [address] Amando Mayda [facility] [place] [facility] Non-GME FHI1) OUTPATIENT [id number] tobacco cessati on class #1 CYNDY LINARES P 12/16 Released w/o Limitations [address] [place] [address] Amando [facility])(F amily Practic e Non-GME FHI1) [address] [place] [address] Amando Mayda [facility])([facility] Non-GME FHI1) OUTPATIENT [id number] tobacco cessati on NAOMI DC 12/30 Released w/o Limitations [address] [place] [address] Amando [facility])(F amily Practic e Non-GME FHI1) [address] [place] [address] Amando Mayda [facility])(Sco tt [facility] Tm) OUTPATIENT [id number] tobacco cessati on class #5 HAYDEN CRONIN 01/14 Released w/o Limitations [address] [place] [address] Amando [facility])(S cott [facility] Tm) [address] [place] [address] Amando [facility])([facility] Non-GME FHI1) OUTPATIENT [id number] tobacco cessati on follow- up CYNDY LINARES P 02/03 Released w/o Limitations [address] [place] [address] Amando [facility])(F amily Practic e Non-GME FHI1) [address] [place] [address] Amando B [facility] [place] [facility] Non-GME FHI1) OUTPATIENT [id number] fol PHA CYNDY LINARES P 05/30 Released w/o Limitations [address] [place] [address] Amando B [facility])(F amily Practic e Non-GME FHI1) [address] [place] [address] Amando B ([facility] Non-GME FHI1) OUTPATIENT [id number] f/u to labs/EK G needed/ CYNDY Minaya P 06/13 Released w/o Limitations [address] [place] [address] Amando B ([facility]F amily Practic e Non-GME FHI1) [address] [place] [address])([facility] Blue) TELE CONSULT [id number] Labs for C-Scope VERONICA JUAREZ Shandra 06/[address] [place] [address] [employer]ando B [facility] Blue) [address] [place] [address] [facility])([facility] Non-GME FHI2) OUTPATIENT [id number] sore throat KULWINDER MACHUCA E 06/22 Released w/o Limitations [address] [place] [address] Amando B [facility])(F amily Practic e Non-GME FHI2) [address] [place] [address] [facility])([facility] Non-GME FHI1) TELE CONSULT [id number] call back - SD Siddiqui am P 06/[address] [place] [address] [facility])(F amily Practic e Non-GME FHI1) [address] [place] [address] [facility])([facility] Non-GME FHI2) OUTPATIENT [id number] sore throat KULWINDER MACHUCA E 06/27 Released w/o Limitations [address] [place] [address] [facility])(F amily Practic e Non-GME FHI2) [address] [place] [address] Amando B [facility])(Sco tt [facility] Tm Blue) OUTPATIENT [id number] visit for: screeni ng maligna nt neoplas m colon RAMESH ELLINGTON 07/26 Released w/o Limitations [address] [place] [address] [employer]ando B [facility])([facility] Tm Blue) [address] [place] [address] Amando B [facility])(Sco tt [facility] Tm Blue) TELE CONSULT [id number] Colonos ocpy results RAMESH ELLINGTON 08/[address] [place] [address] [facility])(S cott [facility] FAMRES Tm Blue) [address] [place] [address] Group [employer] ([facility])(Gen eral Surgery) OUTPATIENT [id number] 3cm colonic polyp BARB PENN 08/17 Released w/o Limitations [address] [place] [address] Group [employer] ([facility])(G eneral Surgery ) [address] [place] [address] [employer] ([facility] [place] [facility] Non-GME FHI1) TELE CONSULT [id number] call back - SONNY Andino am 09/[address] [place] [address] [employer] ([facility])(F amily Practic e Non-GME FHI1) [address] [place] [address] [employer] ([facility])(Gen eral Surgery) OUTPATIENT [id number] f/u-per zaynab Penn KENNETH D 09/14 Released w/o Limitations [address] [place] [address] [employer] ([facility])(G eneral Surgery ) [address] [place] [address] [employer] ([facility])(Gen eral Surgery) OUTPATIENT [id number] BARB PENN 09/20 Released w/o Limitations [address] [place] [address] [employer] ([facility])(G eneral Surgery ) [address] [place] [address] [employer] ([facility])(Opt ometry) OUTPATIENT [id number] routine eye exam JUDSON BACON 09/21 Released w/o Limitations [address] [place] [address] [employer] ([facility])(O ptometr y) [address] [place] [address] [employer] [facility] [place] [facility] Non-GME FHI2) TELE CONSULT [id number] call back-THERESA Chu am 10/[address] [place] [address] [employer] ([facility])(F amily Practic e Non-GME FHI2) [address] [place] [address] [employer] ([facility])(Gen eral Surgery) OUTPATIENT [id number] fzaynab bravo KENNETH D 10/27 Released w/o Limitations [address] [place] [address] Group [employer] ([facility])(G eneral Surgery ) [address] [place] [address] [employer] ([facility])(Gen eral Surgery) OUTPATIENT [id number] fzaynab bravo KENNETH D 01/15 Released w/o Limitations [address] [place] [address] [employer] ([facility])(G eneral Surgery ) [address] [place] [address])([facility] Non-GME FHI2) TELE CONSULT [id number] jerri ponce -- SD Siddiqui am 01/[address] [place] [address])(F amily Practic e Non-GME FHI2) [address] [place] [address])([facility] Non-GME FHI1) OUTPATIENT [id number] follow- up colon CA VIJAYDONALDET P 02/06 Released w/o Limitations [address] [place] [address])(F amily Practic e Non-GME FHI1) [address] [place] [address])([facility] Non-GME FHI1) TELE CONSULT [id number] lab results . NOLA SWIFT 03/[address] [place] [address])(F amily Practic e Non-GME FHI1) [facility] Outpatient Encounter [id number] 10/21 [facility] Outpatient Encounter [id number] 11/27 [facility] Outpatient Encounter [id number] MARIA DE JESUS TAVAREZ RRY 11/28 [facility] OFFICE O/P NEW MOD 45 MIN [id number] Diagnos is: ICD-10- CM E78.5 Hyperli pidemia , unspeci fied ME EDSON JONES E 11/29 [facility] Outpatient Encounter [id number] 11/30 [facility] OFFICE O/P NEW HI 60 MIN [id number] Diagnos is: ICD-10- CM Z77.29 Contact with and exposur e to other hazardo us substan koko RADHA AGUILLON 12/05 [facility] Outpatient Encounter [id number] 12/05 [facility] N [facility] Outpatient Encounter [id number] 12/06 [facility] Outpatient Encounter [id number] 2 12/06 [facility] SYNCH AUDIO-ONLY EST SF 10 [id number] Diagnos is: ICD-10- CM 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 Procedure Procedure Type Code Date Perfomer Comments Sourc e Non-Physician Phone Call To Pt/Provider Lengthy (21-30 min) Non-Physician Phone Call To Pt/Provider Lengthy (21-30 min) [id number] 8 NOLA SWIFT Determination Of Refractive State Determination Of Refractive State [id number] 8 DEVIN BACONALD Liv [facility] Visual Serrano Test Intermediate Examination Visual Serrano Test Intermediate Examination 14147 8 ARLEEN JUDSON [facility] Ophthalmological New Patient Start Comprehensive Care Ophthalmological New Patient Start Comprehensive Care 25947 8 JUDSON BACON [facility] Complete Colonoscopy 00 7 RAMESH ELLINGTON [facility] Colonoscopy For Forceps Biopsy 7 RAMESH ELLINGTON [facility] TELE ASSESS & MGT SRV PROV QUAL NONPHYS HLTH CARE PRO TO EST PAT,PARENT,GUARD NOT ORIG REL ASSESS & MGT SRV PROV W/IN PREV 7 DAYS NOR LEAD ASSESS & MGT SRV/PX W/IN NXT 24H/SOON APT; 21-30 MIN MED DIS 8 [facility] POSTOPERATIVE FOLLOW-UP VISIT, NORMALLY INCLUDED IN THE SURGICAL PACKAGE, INDICATE THAT EVALUATION & MANAGEMENT SERVICE WAS PERFORMED DURING A POSTOPERATIVE PERIOD REASON RELATED ORIGINAL PROCEDURE 8 [facility] DETERMINATION OF REFRACTIVE STATE 8 [facility] COLONOSCOPY, FLEXIBLE; WITH BIOPSY, SINGLE OR MULTIPLE 7 [facility] Social History Combined list of available smoking, tobacco, and other social history from Department of Defense and Veterans Affairs facilities. Social History Type Response Date Comment Sourc e Tobacco smoking status NHIS WY-TOBACCO USE FORMER CIGARETTES 11/29/2024 [facility] History of tobacco use WY-TOBACCO NEVER USED OTHER TYPE 11/29/2024 [facility] History of tobacco use QUIT TOBACCO >7 YEARS AGO 04/15/2015 [facility] History of tobacco use QUIT TOBACCO >7 YEARS AGO 03/19/2014 [facility] History of tobacco use QUIT TOBACCO >7 YEARS AGO 04/06/2013 [facility] This section is an empty social history section. [facility] Plan of Care List of future care activities from Department of Veterans Affairs facilities. Additional future care activities may be listed in the Assessment and Plan section. Date/Time Care Activity Care Activity Detail Facili ty 01/04/2025 AMBULATORY - MEDICINE AMBULATORY - MEDICI NE [facility]
--- OUTSIDE RECORDS SUMMARY | 2024-12-26 13:43 | XMS_ITS | Encounter Summary ---
Author Organization [facility] Address [address] [place] [id number] Care Team Providers Care Wheel Truer Name Role Phone Addi Heredia MD Primary Care Provider + [phone] Primo Heredia Primary Care Provider [phone] Addi Heredia MD Primary Care Provider + [phone] Miscellaneous, Not In File Primary Care Provider Unavailable Addi Heredia MD Primary Care Provider + [phone] Termayne Del Real MD Primary Care Provider Miscellaneous, [...] Addi Heredia MD Primary Care Provider + [phone] Tremayne Del Real MD Primary Care Provider Addi Heredia MD Primary Care Provider + [phone] Addi Heredia MD Primary Care Provider + [phone] Tremayne Del Real MD Primary Care Provider Addi Heredia MD Primary Care Provider + [phone] Addi Heredia MD Primary Care Provider + [phone] Tremayne Del Real MD Primary Care Provider Addi Heredia MD Primary Care Provider + [phone] Addi Heredia MD Primary Care Provider + [phone] Tremayne Del Real MD Primary Care Provider Addi Heredia MD Primary Care Provider + [phone] Tremayne Del Real MD Primary Care Provider Addi Heredia MD Primary Care Provider + [phone] Tremayne Del Real MD Primary Care Provider Addi Heredia MD Primary Care Provider + [phone] Addi Heredia MD Primary Care Provider + [phone] Tremayne Del Real MD Primary Care Provider Aj Tejeda MD Primary Care Provider Encounter Details Date Type Department Care Team (Late st Contact Info) Description 09/03/2016 Orders Only [facility] Provider, MD Rick [address] [place] [address] Social History Tobacco Use Types Packs/Day Years Used Date Smoking Tobacco: Never Alcohol Use Standard Drinks/Week Comments Yes 0 (1 standard drink = 0.6 oz pur e alcohol) Sex and Gender Information Value Date Recorded Sex Assigned at Not on file 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 Gender Identity Male 04/01/2020 9:43 AM CDT [...] on filedocumented in this encounter Care Teams Wheel Truer Relationship Specialty Start Date End Date Addi Heredia MD [address] [place] [address] PCP - General 11/27/16 01/18/17 Primo Heredia [address] [place], [place] [id number] PCP - General 10/14/16 11/26/16 Addi Heredia MD [address] [place] [address] PCP - General 08/06/16 10/13/16 Miscellaneous, Not In File PCP - General 01/19/17 Addi Heredia MD [address] [place] [id number] PCP - General 01/20/17 04/21/17 Tremayne Del [...] 08/04/1708/08 Addi Heredia MD [address] [place] [address] PCP - General 08/09/17 08/09/17 Tremayne Del Real MD PCP - General 08/10/17 08/17/17 Addi Heredia MD [address] [place], [place] [id number] PCP - General 08/18/17 08/24/17 Addi Heredia MD [address] [place] [address] (Fax) PCP - General 08/25/17 08/25/17 Tremayne Del Real MD PCP - General 08/26/17 09/02/17 Addi Heredia MD [address] [place] [address] (Fax) PCP - General 09/03/17 09/06/17 Addi Heredia MD [address] [place] [address] (Fax) PCP - General 09/07/17 09/13/17 Tremayne Del Real MD PCP - General 09/14/17 09/15/17 Addi Heredia MD [address] [place] [address] (Fax) PCP - General 09/16/17 09/16/17 Addi Heredia MD [address] [place] [address] (Fax) PCP - General 09/17/17 09/29/17 Tremayne Del Real MD PCP - General 09/30/17 10/12/17 Addi Heredia MD [address] [place] [address] (Fax) PCP - General 10/13/17 10/14/17 Tremayne Del Real MD PCP - General 10/15/17 10/15/17 Addi Heredia MD [address] [place] [address] (Fax) PCP - General 10/16/17 10/20/17 Tremayne Del Real MD PCP - General 10/21/17 11/09/17 Addi Heredia MD [address] [place] [address] (Fax) PCP - General 11/10/17 11/10/17 Addi Heredia MD [address] [place] [address] (Fax) PCP - General 11/11/17 11/21/17 Tremayne Del Real MD PCP - General 11/22/17 10/05/18 Aj Tejeda MD [address] [place] [address] PCP - General 10/06/18 documented as of this encounter
--- OUTSIDE RECORDS SUMMARY | 2024-12-26 13:43 | XMS_ITS | Encounter Summary ---
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 This section includes the names of all active insurance providers for the patient. Insurance Provider Type of Coverage Plan Name Start of Policy Coverage End of Policy Coverage Group Number Member ID Insurance Provider's Telephone Number Policy Guthrie's Name Patient's Relationship to Policy Guthrie MEDICARE (WNR) MEDICARE (M) PART A Feb 28, 2008 PART A [id number] [phone] RAMA BHATT ER PATIENT MEDICARE (WNR) MEDICARE (M) PART B Feb 28, 2008 PART B [id number] RAMA BHATT ER PATIENT MEDICARE (WNR) MEDICARE (M) PART A Feb 28, 2008 PART A [id number] RAMA BHATT ER PATIENT MEDICARE (WNR) MEDICARE (M) PART B Feb 28, 2008 PART B [id number] RAMA BHATT ER PATIENT -FO R-LIFE TRICA RE FOR LIFE WNR Feb 28, 2008 FOR LIFE [id number] [phone] RAMA BHATT ER PATIENT Selected Encounter This section includes the information on record at [place] for the Encounter. Date/Time Encounter Type Encounter Description Reason Provider Source Nov 29, 2024 01:00 PM OFFICE O/P NEW MOD 45 MIN PRIMARY CARE/MEDICINE ICD-10-CM E78.5 Hyperlipidemia, unspecified [facility] Encounter Template Text not used by [place] Assessments - Encounter Diagnoses This section includes the primary and secondary diagnoses documented for the Encounter. Date/Time Primary/Secondary Diagnosis Diagnosis Name Provider Source Nov 29, 2024 02:10 PM PRIMARY Hyperlipidemia, unspecified [facility] Nov 29, 2024 02:10 PM SECONDARY Athscl heart disease of [place] coronary artery w/o ang pctrs [facility]EN,[facility] Nov 29, 2024 02:10 PM SECONDARY Carcinoma in situ of colon KAREN,[facility] Nov 29, 2024 02:10 PM SECONDARY Contact with and exposure to other hazardous substances KAREN,[facility] Nov 29, 2024 02:10 PM SECONDARY Essential (primary) hypertension KAREN,[facility] Nov 29, 2024 02:10 PM SECONDARY Idiopathic progressive neuropathy LECTURE,[facility] Nov 29, 2024 02:10 PM SECONDARY Malignant neoplasm of unsp kidney, except renal pelvis KAREN,[facility] Nov 29, 2024 02:10 PM SECONDARY Unspecified atrial fibrillation LECTURE,[facility] Plan of Treatment: Future Appointments (+ 6 months) and Future Tests (+/- 45 days) The Plan of Treatment section includes future care activities for the patient from all [place] treatmentfacilities. This section includes future appointments and future orders which are active, pending or scheduled. Future Appointments This section includes appointments that were scheduled to occur 6 months from the date of the Encounter, up to a maximum of 20 appointments. The data comes from all [place] treatment facilities. Appointment Date/Time Appointment Type Appointme nt Facility Name Dec 05, 2024 12:30 PM AMBULATORY - MEDICINE [facility] January 04, 2025 11:00 AM AMBULATORY - MEDICINE [facility] Active, Pending, and Scheduled Orders This section includes a listing of several types of active, pending, and scheduled orders, including clinic medications orders, diagnostic test orders, procedure orders and consult orders; where the start date of the order is 45 days before the date of the Encounter or 45 days after the date of theEncounter. The data comes from all [place] treatment facilities. Test Date/Time Test Type Test Details Facility Name Nov 29, 2024 01:39 PM Consult Order NEUROLOGY OUTPATIENT TERE Cons [facility] Dec 04, 2024 12:00 AM Imaging - General Radiology Order CHEST X-RAY, 2 VIEWS [facility] Dec 04, 2024 08:48 AM Procedure Order CP EKG STL CP EKG - STL Proc [facility] Lab Results: +/- 30 days of the encounter This section includes the Chemistry and Hematology Lab Results on record with [place] for the patient. Radiology Reports and Pathology Reports are provided separately, in subsequent sections. Lab Results This section contains the Chemistry/Hematology Results that were resulted 30 days before or 30 daysafter the date of the Encounter. Date/Time Source Result Type Result - Unit Interpretation Reference Range Specimen Type Comment Dec 05, 2024 02:17 PM [facility] URINALYSIS (STL-PB) URINE Specimen Type: URINE No comment entered. Ordering Provider: ASHLEY AGUILLON Report Released Date/Time: Dec 04, 2024 08:48 AM Reporting Lab: [facility] [address] [facility] [address] Performing Lab: [facility] [address] [facility] [address] URINE COLOR Light-Yellow Yellow U.BILIRUBIN Negative mg/dL Negative U.PH 6.0 5.0-8.0 APPEARANCE Clear Clear U.NITRITE Negative mg/dL Negative URN.GLUCOSE Normal mg/dL Negative URN.PROTEIN Negative mg/dL URN.UROBILINOGEN Normal mg/dL Normal URN.BLOOD Negative mg/dL Negative-Trace URN.KETONES Negative mg/dL Negative-Trac e URN.LEUK.EST. Negative mg/dL Negative-Tr nixon URN.SPECIFIC GRAVITY 1.012 Dec 05, 2024 02:10 PM [facility] COMPREHENSIVE METABOLIC PANEL PLASMA Specimen Type: PLASMA Comment: LDL calculation invalid when Triglyceride exceeds 250 mg/dl No hemolysis noted. Ordering Provider: ASHLEY AGUILLON Report Released Date/Time: Dec 04, 2024 08:48 AM Reporting Lab: [address] [address] Performing Lab: [address] [address] CREATININE 1.76 mg/dL H 0.7-1.3 UREA NITROGEN 21.5 mg/dL 9.0-25.0 GLUCOSE 96 mg/dL 72-99 SODIUM 138 meq/L 136-145 POTASSIUM 4.5 meq/L 3.5-5 CHLORIDE 103 meq/L 98-107 CARBON DIOXIDE 29 meq/L 22-31 CALCIUM 10.1 mg/dL 8.4-10.4 PROTEIN 7.4 g/dL 6-8.6 ALBUMIN 4.2 g/dL 3.4-5 TOTAL BILIRUBIN 0.4 mg/dL 0.2-1.2 ALKALINE PHOSPHATASE 72 U/L 40-150 AST/SGOT 18 U/L 5-34 ALT/SGPT 21 U/L 8-40 EGFR (CKD-EPI 2020) 38.4 >60 Dec 05, 2024 02:10 PM [facility] CBC BLOOD Specimen Type: BLOOD No comment entered. Ordering Provider: ASHLEY AGUILLON Report Released Date/Time: Dec 04, 2024 08:48 AM Reporting Lab: [facility] [address] [facility] [place] [address] Performing Lab: [address] [address] WBC 11.5 10*3/uL H 3.6-11.2 RBC 5.55 10*6/uL 4.10-5.70 HGB 13.4 g/dL 13.1-16.8 HCT 46.1 38.2-48.4 MCV 83.1 fL 80.0-100.0 MCH 24.1 pg L 27.0-34.0 MCHC 29.1 g/dL L 33.0-36.0 PLT 413 10*3/uL H 150-400 MPV 9.2 fL 7.5-11.2 RDW 20.1 H 11.8-15.1 LYMPHOCYTES, AUTO % 23 MONOCYTES, AUTO % 8 NEUTROPHILS, AUTO % 67 EOSINOPHILS, AUTO % 1 BASOPHILS, AUTO % 1 LYMPHOCYTES, ABSOLUTE 2.62 10*3/uL 0.77- 4.50 MONOCYTES, ABSOLUTE 0.87 10*3/uL H 0.19-0. 80 NEUTROPHILS, ABSOLUTE 7.70 10*3/uL 2.10- 8.00 EOSINOPHILS, ABSOLUTE 0.12 10*3/uL 0.00- 0.60 BASOPHILS, ABSOLUTE 0.09 10*3/uL 0.00-0. 20 Dec 05, 2024 02:10 PM [facility] LIPID PANEL (STL) PLASMA Specimen Type: PLASM A Comment: LDL calculation invalid when Triglyceride exceeds 250 mg/dl No hemolysis noted. Ordering Provider: ASHLEY AGUILLON Report Released Date/Time: Dec 04, 2024 08:48 AM Reporting Lab: [place] [id number] [facility] [place] [address] Performing Lab: [address] [address] CHOLESTEROL 209 mg/dL H 0-200 TRIGLYCERIDE 296 mg/dL H 0-150 DIRECT LDL 151 mg/dL >100 CALCULATED LDL comment mg/dL HDL(New) 29 mg/dL L >40 Dec 05, 2024 02:10 PM [facility] HGA1C BLOOD Specimen Type: BLOOD No comment entered. Ordering Provider: ASHLEY AGUILLON Report Released Date/Time: Dec 04, 2024 08:48 AM Reporting Lab: [facility] [address] [place] [address] Performing Lab: [address] [address] HGA1C 6.2 H 4.0-6.0 Dec 05, 2024 02:10 PM [facility] PROST. SPECIFIC AG.(PB-STL) SERUM Specimen Ty pe: SERUM Comment: The listed sex of this patient may not be a typical indication for this test. Therefore, reference ranges or interpretive criteria listed may not be valid. Clinical correlation suggested. Ordering Provider: ASHLEY AGUILLON Report Released Date/Time: Dec 04, 2024 08:48 AM Reporting Lab: [place] [address] [facility] [address] Performing Lab: [address] [address] PROST. SPECIFIC AG.(PB-STL) 1.519 ng/mL 0-4 Dec 05, 2024 02:10 PM [facility] HEP C Ab HCV Ab (L) SERUM Specimen Type: SE RUM Comment: The listed sex of this patient may not be a typical indication for this test. Therefore, reference ranges or interpretive criteria listed may not be valid. Clinical correlation suggested. Ordering Provider: ASHLEY AGUILLON Report Released Date/Time: Dec 04, 2024 08:48 AM Reporting Lab: [address] [address] Performing Lab: [address] [address] HEP C Ab HCV Ab (L) Nonreactive Nonrea ctive Dec 05, 2024 02:10 PM [facility] TSH W/ REFLEX FT4 (L) PLASMA Specimen Type: PLASMA No comment entered. Ordering Provider: ASHLEY AGUILLON Report Released Date/Time: Dec 04, 2024 08:48 AM Reporting Lab: [address] [address] Performing Lab: [address] [address] TSH 3.793 u[IU]/mL 0.47-5 Vital Signs: All taken on the encounter date This section contains inpatient and outpatient Vital Signs collected on the date of the Encounter. Date/Time Temperature Pulse Blood Pressure Respiratory Rate SP02 Pain Height Weight Body Mass Index Source Nov 29, 2024 12:53 PM 98.2 83 137/84 16 97 0 307.7 41 [facility] Social History: Smoking Status (Most current) and Tobacco Use (All prior to encounter date) This section includes the most current, and the historical, smoking and tobacco- related health factors from the [place] facility where the Encounter took place. Current Smoking Status This section includes the most current smoking, or tobacco-related health factor, from the [place] facility where the Encounter took place. Date/Time Current Smoking Status Comment Whitney nunez Nov 29, 2024 01:00 PM VA-TOBACCO USE FOR HOLLIE CIGARETTES [facility] Tobacco Use History This section includes a history of the smoking, or tobacco-related health factors, that were collected on or before the date of the Encounter. The data comes from the [place] facility where the Encounter took place. Date/Time Smoking Status/Tobacco Use Comment F acility Nov 29, 2024 01:00 PM VA-TOBACCO USE FOR HOLLIE CIGARETTES [facility] Encounter Notes: All associated encounter notes This section contains the clinical notes associated to the Encounter. Date/Time Encounter Note(s) Provider Source Nov 29, 2024 01:11 PM PRIMARY CARE INITI AL EVALUATION NOTE: LOCAL TITLE: PRIMARY CARE PROVIDER NEW VISIT [facility] STANDARD TITLE: PRIMARY CARE INITIAL EVALUATION NOTE DATE OF NOTE: NOV 29, 2024@13:11 ENTRY DATE: NOV 29, 2024@13:11:25 AUTHOR: DAGMAR JONES COSIGNER: URGENCY: STATUS: COMPLETED REASON FOR VISIT/CHIEF COMPLAINT: Establish care HPI: This is a 79 YOM presenting to [facility]. Last seen at [facility] in 2014. Pt has been following w/ nonva providers. Per notes in jLV, He was recently hospitalized for combination of COVID, volume overload, AFib. He underwent IV diuresesis. Declining [facility] through [facility]. Reports recently started zepbound. States highes was 300lbs. Reports nonva- Cards 2/ dr jama -nonva- Dr. Ricks, [facility] -nonva Renal- Farrukh, monitoring kidney #CAD/SOB -eval/management per nonva cards -medfurosemide -echo completed 09/2024 there is normal biventricular systolic function -reports chest pain w/ walking, improves w/ rest, has had for a year, denies worsening. states will be seeing his cardiology. #Afib -evalmanagement per nonva PCP -me: amiodarone, eliquis -pacemaker, states hoping but has not talked about it -states always tired #HLD -med: fenofibrate -denies myalgia #preDM -pt denies hx, last a1c on 5.8 -denies myalgia #hx of kidney/colon CA -states following w/ nonva renal -reports stable #hx of elevated PSA -reports seeing nonva kidney specialsit who checked his PSA and it was 1.5 -denies urinary problems #CKD -eval/manageent per nonva renal -avoiding nephrotoxins #HTN -BP:reports running well at home, not on any meds -BPgoal <140/80 -Denies CP, SOB, heart palpitations, headaches, blurried vision, dizziness/lightheadedness. #hx o of DVT of lower extremity -per JLV, No DVT by US 05/2020 -reports resolved #MELANIE -using CPAP #Neuropathy -Following w/ nonva neurology, Dr. riojas -med: gabapentin. 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 States all have passed except 1 brother and 1 sister ( who is 97)- 1 sister had bone cancer, 1 brother w/ heart problems -1 brother passed at 100. - 4 kids, 2 boys 2 girls. unable to recall all grand parents health hx. Denies DM, CVA, thyroid problems, lung problems, autoimmune, MH MARITAL STATUS: , lost 4 years ago. 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 ILLICIT DRUGS:Denies ALLERGIES: MORPHINE ALLERGY REVIEW: Allergy list reviewed and remains current. MEDICATIONS: albuterol HFA 90 mcg/actuation inhaler Commonly known [...] 100 mg capsule Commonly known as: NEURONTIN idtrvvru-johj-xng1-C-fausto-b osw 750 mg-644 mg- 30 mg-1 mg tablet melatonin 10 mg tablet potassium chloride ER 10 mEq CR tablet Commonly known as: KLOR-CON Stiolto Respimat 2.5-2.5 mcg/actuation inhaler Generic drug: tiotropium-olodateroL turmeric root extract 500 mg capsule MEDICATION RECONCILIATION: REVIEW OF SYSTEMS: Constitutional: denies weight change, fever, chills, diaphoresis, fatigue, malaise, or change in appetite ENT/Mouth: denies hearing changes, ear pain, nasal congestion, sinus tenderness, hoarseness, sore throat, rhinorrhea, swallowing difficulty, or pnd Eyes: denies eye pain, swelling, redness, foreign body, drainage, or vision changes Cardiovascular: denies chest pain, No SOB, AYERS, orthopnea, claudication, edema, or palpitations Respiratory: denies SOB, cough, sputum, wheezing, or smoke exposure. Gastrointestinal: denies n/v/d, constipation, abd pain, heartburn, anorexia, dysphagia, hematochezia, melena, or flatulence. Genitourinary: denies dysmenorrhea, dyspareunia, dysuria, urinary frequency, hematuria, urinary incontinence, urgency, flank pain, urinary flow changes, or hesitancy Musculoskeletal: denies arthralgias, myalgias, joint swelling, joint stiffness, back pain, neck pain, or injury Skin: denies new lesions, pruritis, hair changes, or rashes Neuro: denies weakness, numbness, paresthesias, LOC, syncope, dizziness, MARTINEZ, coordination changes, changes in gait, or recent falls Psych: denies anxiety/panic, depression, insomnia, personality changes, delusions, SI/HI, memory changes, violence/abuse hx., or eating concerns Heme/Lymph: Denies bruising, bleeding, or lymphadenopathy Endocrine: Denies polyuria, polydipsia, or temperature intolerance PHYSICAL EXAMINATION: VITALS (most recent, as listed in the electronic record): Temperature: 98.2 F [36.8 C] (11/29/2024 12:53) BP: 137/84 (11/29/2024 12:53) Pulse: 83 (11/29/2024 12:53) Resp: 16 (11/29/2024 12:53) PulsOx: 97% (11/29/2024 12:53) Pain: 0 (11/29/2024 12:53) Weight: Measurement DT WEIGHT LB(KG)[BMI] 11/29/2024 12:53 307.7(139.57)[41*] General: pleasant, well appearing adult male/female in no acute distress. HEENT: mucus membranes moist, oropharynx clear, TMs normal, EOMI, PERRLA Neck: supple, no lymphadenopathy or thyromegaly, no carotid bruits Heart: regular rate and rhythm; no murmurs, rubs , or gallops Lungs: CTA BL; no wheezes, rhonchi, or rales Abdomen: soft, nontender, nondistended, bowel sounds normal Extremities: warm, well-perfused; no clubbing, cyanosis, or edema; 2+ DP/PT pulses BL Skin: no rashes or lesions noted; good turgor Neuro: A&O x 3, gait steady and normal-based w/ 4pt cane Psych: appropriate mood and effect. ASSESSMENT/PLAN: #CAD/SOB -eval/management per nonva cards -stable -cont regimen -lifestyle modificaitons reviewed #Afib -eval/management per nonva PCP -stable -cont regimen -instructed on s/s of bleeding and when to notify PCP #HLD -med/management per nonva PCP -stable -cont regimen -lieftyle modificawtions #preDM -stable -lifestyle modificaitons reviewed -declining labs through [facility] #hx of kidney/colon CA -states following w/ nonva renal -stable #hx of elevated PSA -eval/management per nonva providers #CKD -eval/manageent per nonva renal -avoid nephrotoxins #HTN -med/management per nonva PCP -Controlled w/o meds -BP goal <130/80 -Cont to check BP, notify PCP if BP consistently greater than 130/80 -Encouraged healthy diet and exercise, Limit salt in diet. #hx o of DVT of lower extremity -per JLV, No DVT by US 05/2020 -reports resolved #MELANIE -cont CPAP #Neuropathy -med/management per nonva neurology -reports not controlled -requesting to see [facility], consult placed #HM -declining labs through [facility] RETURN TO CLINIC:1 year or earlier PRN Toxic Exposure Screening Follow-Up - NS,P: Exposure Concern(s): 11/29/2024 [place] - Toxic Exposure Concern Airborne Hazards/Open Burn Pit - Toxic Exposure Concern Follow-up Question(s): 11/29/2024 No Questions - Toxic Exposure Concern [place]/caregiver has no health or medical questions related to their self-reported environmental exposure (LIGIA). The following connections were provided to the [place]/caregiver: Environmental Health Registry /gogo/ DAGMAR JONES MSN AGPNP-C NURSE PRACTITIONER Signed: 11/29/2024 14:10 DAGMAR JONES [facility] Nov 29, 2024 12:57 PM NURSING NOTE: LOCAL TITLE: V15 PACT FACE TO FACE NOTE STL STANDARD TITLE: NURSING NOTE DATE OF NOTE: NOV 29, 2024@12:57 ENTRY DATE: NOV 29, 2024@12:57:51 AUTHOR: DAIJA TAVAREZ EXP COSIGNER: URGENCY: STATUS: COMPLETED Provider Visit: Patient Identifiers : Full Name Date of Reason for visit: New Patient Do you have a history of any of the following? (check all that apply): Heart disease, Obesity, Cancer, Other:Afib Surgeries (type(s) and date(s)): unsure of yars- left kideny, colon- 18 inches removed , left hip, right hip, appendix, Have you been seen by a physician, VA or private, in the last year? Yes Name and contact information for provider: Have you been hospitalized or seen in an ER in the last year? Yes What hospital(s) or ERs and approximate date(s)? [facility]- afib, covid uti (unsure of dates) Records request sent: Have you had a colonoscopy previously? Yes What location and approximate date(s)? [facility] ( unsure of date) Records request sent: Have you had a PAP smear previously? N/A Have you had a Mammogram previously? No Mode of Arrival: Assistive Device: cane Allergy Review: MORPHINE Allergy list reviewed and remains current. Recent Vital Signs: Temperature: 98.2 F [36.8 C] (11/29/2024 12:53) Pulse: 83 (11/29/2024 12:53) Respiration: 16 (11/29/2024 12:53) B/P: 137/84 (11/29/2024 12:53) Pain: 0 (11/29/2024 12:53) Wt: 307.7 lb [139.57 kg] (11/29/2024 12:53) Ht: 73 in [185.4 cm] (06/18/2015 12:52) BMI: 40.7 POX: 97% (11/29/2024 12:53) Would you like to discuss any personal problem, family problem, alcohol use, drug use, or a mental or emotional illness? No Contact provided Primary Care phone number and encouraged to call if any questions or concerns. Review that after hours nurse line [phone] and emergency room are available 22/03 for patient use. Contact verbalized good understanding. Alcohol Use Screen (AUDIT-C) - V: Alcohol Screen: SCREEN FOR ALCOHOL (AUDIT-C) An alcohol screening test (AUDIT-C) was negative (score=3). 1. How often did you have a drink containing alcohol in the past year? Consider a drink to be a 12 ounce can or bottle of regular beer, 8 ounces of malt liquor, a 5 ounce glass of table wine, or a 1.5 ounce shot of liquor (like scotch, gin, or vodka). Two to three times per week 2. How many drinks containing alcohol did you have on a typical day when you were drinking in the past year? One or two drinks 3. How often did you have six or more drinks on one occasion in the past year? Never Suicide Screen - V: C-SSRS Screening Lamb Suicide Severity Rating Scale (C-SSRS) screener 1. Over the past month, have you wished you were or wished you could go to sleep and not wake up? No 2. Over the past month, have you had any actual thoughts of killing yourself? No 3. Over the past month, have you been thinking about how you might do this? Response not required due to responses to other questions. 4. Over the past month, have you had these thoughts and had some intention of acting on them? Response not required due to responses to other questions. 5. Over the past month, have you started to work out or worked out the details of how to kill yourself? Response not required due to responses to other questions. 6. If yes, at any time in the past month did you intend to carry out this plan? Response not required due to responses to other questions. 7. In your lifetime, have you ever done anything, started to do anything, or prepared to do anything to end your life (for example, collected pills, obtained a gun, gave away valuables, went to the roof but didn't jump)? No 8. If YES, was this within the past 3 months? Response not required due to responses to other questions. 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 [place]/caregiver believes the [place] was exposed to the following while serving in the Armed Forces: Airborne Hazards and Open Burn Pit (Occuring in [facility] [place] after 1989): /caregiver was made aware of educational resources that includes information on presumptive conditions and how to file a claim. Printed information was offered and provided if desired. [place]: /caregiver was made aware of educational resources that includes information on the Registry Program, presumptive conditions and how to file a claim. Printed information was offered and provided if desired. No questions at this time [place]/caregiver was informed of local points of contact. Contact information for local resources: [facility] Registry Exam Program: [phone] Eligibility: [phone] [id number] Toxic Exposure Screening Follow-Up reminder is needed. Name of person notified: Lecture Depression Screening - V: Perform PHQ-2 A PHQ-2 screen was performed. The score was 0 which is a negative screen for depression. Over the past two weeks, how often have you been bothered by the following problems? 1. Little interest or pleasure in doing things Not at all 2. Feeling down, depressed, or hopeless Not at all Homelessness/Food Insecurity Screen - DI,L,N,P,PH,PS,S,U: In the past 2 months, have you been living in stable housing that you own, rent, or stay in as part of a household? Yes - Living in stable housing. Are you worried or concerned that in the next 2 months you may NOT have stable housing that you own, rent, or stay in as part of a household? No - Not worried about housing near future The reports the following: Within the past 12 months, you worried whether your food would run out before you got money to buy more. Never true Within the past 12 months, the food you bought just didn't last and you didn't have money to get more. Never true Frail/Elderly Screen: ADL Screen - [place] Index of [place] in Activities of Daily Living Bathing: (3 Points) Receives no assistance (gets in and out of tub by self, if tub is usual means of bathing) Dressing: (3 Points) Gets clothes and gets completely dressed without assistance. Toileting: (3 Points) Goes to toilet room , cleans self, and arranges clothes without assistance (may use object for support such as cane, walker, or wheelchair, and may manage own night bedpan or commode, emptying same next morning) Transferring: (3 Points) Moves in and out of bed and in and out of chair without assistance (may be using object for support, such as cane or walker) Continence: (2 Points) Has occasional accidents or urination or bowels Feeding: (3 Points) Feeds self without assistance Total Score: 17 Points 18 = High (patient independent) 6 = Low (patient very dependent) IADL Screen - [place] Instrumental Activities of Daily Living Scale Ability to use telephone: (1 point) Operates Telephone on own initiative; looks up and dials numbers. Shopping: (1 point) Takes care of all shopping needs independently. Food preparation: (1 point) Plans, prepares, and serves adequate meals independently. Housekeeping: (1 point) Performs light daily tasks such as dishwashing, bed making. Laundry: (1 point) Does personal laundry completely. Mode of transportation: (1 point) Travels independently on public transportation or drives own car. Responsibility for own medications: (1 point) Is responsible for taking medications in correct dosages at correct times. Ability to handle finances: (1 point) Manages financial matters independently (budgets, writes checks, pays rent and bills, goes to bank); collects and keeps track of income. Total score: 8 points 8 = High function, independent 0 = Low function, dependent Falls Screen: At least one fall with injury requiring treatment (in ED or clinic visit) within the last 12 months. Incontinence Screen: YES - Incontinence is a problem for this patient. Is urinary incontinence NEW for this patient? NO - Incontinence is NOT a new problem. What is the current treatment? Wears an adult diaper due to prostate/colon surgery PTSD Screening - V: PC-PTSD-5 A PTSD screening test (PC-PTSD-5) was negative (score=0). IN THE PAST MONTH, have you ever had any experience that was so frightening, horrible or traumatic. For example: A serious accident or fire a physical or sexual assault or abuse An earthquake or flood A war Seeing someone be killed or seriously injured Having a loved one through homicide or suicide 1. Have you ever experienced this kind of event? NO 2. Had nightmares about the event(s) or thought about the event(s) when you did not want to? Response not required due to responses to other questions. 3. Tried hard not to think about the event(s) or went out of your way to avoid situations that reminded you of the event(s)? Response not required due to responses to other questions. 4. Been constantly on guard, watchful, or easily startled? Response not required due to responses to other questions. 5. [place] numb or detached from people, activities, or your surroundings? Response not required due to responses to other questions. 6. [place] guilty or unable to stop blaming yourself or others for the event(s) or any problems the event(s) may have caused? Response not required due to responses to other questions. Learning Assessment: - * This patient's learning ABILITIES, BARRIERS to learning, CULTURAL and EPISCOPALIAN beliefs, and learning PREFERENCES were assessed. Following are findings of note: Patient reads well. Patient has the following hearing/auditory barrier(s) to consider when teaching: No hearing barrier identified. Patient has the following speech barrier to consider when teaching: No speech barrier identified. LANGUAGE Patient reports that [place] is preferred language for healthcare. Patient has the following language barrier to consider when teaching: No language barrier has been identified. Patient has the following vision barrier(s) to consider when teaching: The following barrier has been identified:, Requires glasses/contacts for reading Adjustments made to address the identified barrier include: Assure patient has glasses/contacts for reading. Patient has the following dexterity/mobility barrier(s) to consider when teaching: No dexterity/mobility barrier has been identified. Patient has the following cognitive/memory barrier(s) to consider when teaching: No cognitive/memory barrier has been identified. Patient has the following emotional/psychological barrier(s) to consider when teaching: No emotional/psychosocial barrier has been identified. Patient has the following social support deficit(s) to consider when teaching: No social support issues have been identified. Patient reports learning preference is to refer to handouts. Patient reports learning preference is attending one-to-one or group demonstrations. Tobacco Use Screening - AT,DE,L,M,N,P,PH,PS,RT,S,U: The patient is a former cigarette smoker. The patient has never used other types of tobacco. [facility] - PHP MAP: PERSONAL HEALTH PLAN INVENTORY & MAP [place]'s Response: reading, tv, grandkids, SHARED GOALS lose weight COVID-19 Immunization - L,N,P,PH,U: Refused Pfizer Monovalent COVID-19 vaccine Immunization: COVID-19 (SpreadShout), MRNA, LNP-S, PF, AGUSTO-SUCROSE, 30 MCG/0.3 ML (AGES 12+ YEARS) Refusal Reason: PATIENT DECISION Patient refuses all immunization(s) in the COVID-19 group Date Documented: 11/29/24 13:08 Influenza Immunization - L,N,P,PH,U: Deferral / Refusal The patient declines to receive the recommended dose of seasonal influenza vaccine. Immunization: INFLUENZA, UNSPECIFIED FORMULATION Refusal Reason: PATIENT DECISION Patient refuses all immunization(s) in the FLU group Date Documented: 11/29/24 13:08 Herpes Zoster (Shingles) Vaccine - L,N,P,PH,U: The patient declines to receive the recommended dose of zoster (shingles) vaccine. Immunization: ZOSTER RECOMBINANT Refusal Reason: PATIENT DECISION Patient refuses all immunization(s) in the ZOSTER group Date Documented: 11/29/24 13:08 Pneumococcal PPSV23 (Pneumovax) - L,N,P,PH,U: The patient declines to receive the recommended dose of PPSV23 vaccine. Immunization: PNEUMOCOCCAL POLYSACCHARIDE PPV23 Refusal Reason: PATIENT DECISION Patient refuses all immunization(s) in the PneumoPPV group Date Documented: 11/29/24 13:09 Td/Tdap Immunization - L,N,P,PH,U: The patient declines to receive the recommended dose of Td/Tdap vaccine. Immunization: TD(ADULT) UNSPECIFIED FORMULATION Refusal Reason: PATIENT DECISION Patient refuses all immunization(s) in the Td group Date Documented: 11/29/24 13:09 jung/ DAIJA TAVAREZ LPN LICENSED PRACTICAL NURSE Signed: 11/29/2024 13:09 DAIJA TAVAREZ [facility]
--- OUTSIDE RECORDS SUMMARY | 2024-12-26 13:43 | XMS_ITS | Clinical Summary ---
Author Organization [facility] Address [address] [place] [address] Care Team Providers Care Optical Instrument Assembler Name Role Phone Aj Tejeda MD Primary [...] 500 mg capsule Take by mouth Active hywplgzd-pqca-f fu4-[id number]-sshq-bosw 750 mg-644 mg- 30 mg-1 mg tablet [...] Cephalalgia 05/26/2017 Neuralgia 05/25/2017 No diagnosis on [place] I 05/04/2017 Memory impairment 04/22/2017 Degeneration of [...] Department Care Team Description 12/26/2024 Results Follow-Up [facility] Cardiology at [address] [place] [address] Sanjay Olivarez MD 12/20/2024 3:00 PM CDT Ancillary Procedure [facility] Cardiology [address] [place] [phone] Persistent atrial fibrillation (HCC) 12/19/2024 Telephone [facility] Cardiology [address] [place] [address] [address] [place] [phone] Sanjay Olivarez MD 10/24/2024 2:15 PM CORE FILER Office Visit [facility] Cardiology at [address] [place] [address] Sanjay Olivarez MD Persistent atrial fibrillation (HCC) (Primary [...] Neuralgia Numbness Back pain Leg pain Cancer (HCC) left kidney, col on cancer Sleep apnea Emphysema of lung (HCC) 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 Atrial fibrillation (HCC) Borderline diabetic Family History Medical History Relation Name Comments Cancer Brother 1 Michael Bhatt Cancer Brother 2 Yomi Bhatt Prostate cancer Brother 2 Yomi Bhatt Cancer, pros trejo; Cause of : Cancer, prostate Bleeding Disorder Brother 3 Jason Alons COPD Brother 3 Jason Alons Clotting disorder Brother 3 Jason Alons Hearing loss Brother 3 Jason Alons Kidney disease Brother 3 Jason Alons Obesity Brother 3 Jason Alons Cancer Father Ismael Alanselmo Emphysema Father Ismael Bhatt Emphysema; Alzheimer's disease Mother Laura Causey Alzhei beatrice's disease; Cancer Sister Petty Ovalle Anesthesia problems Neg Hx Relation Name Status Comments Brother 1 Michael Bhatt Brother 2 Yomi Alons Brother 3 Jason Alanselmo Father Ismael Bhatt (Age 90) Mother Laura Causey (Age 101) [...] on file Legal Sex Male 11:32 PM CORE FILER Gender Identity Male 04/01/2020 9:43 AM CDT Sexual Orientation Straight 11/07/2018 9: 10 PM CDT Occupation Industry Job Start Date Job End Date retired Not on file Not on file Not on file Obstetrics History Last Filed Vital Signs Vital Sign Reading Time Taken Comments Blood Pressure 134/72 10/24/2024 2:30 PM CORE FILER Pulse 80 10/24/2024 2:30 PM CORE FILER Temperature 37 C (98.6 F) 02/21/2024 1:23 PM CDT Respiratory Rate 18 04/21/2024 8:50 AM CDT Oxygen Saturation 97% 10/24/2024 2:30 PM CORE FILER Inhaled Oxygen Concentration - - Weight 140.6 kg (310 lb) 10/24/2024 2:30 PM CORE FILER Height 188 cm (6' 2 ) 10/24/2024 2:30 PM CORE FILER Body Mass Index 39.8 10/24/2024 2:30 PM CORE FILER Plan of Treatment Health Maintenance Due Date [...] 10/31/2020 11/01/2019, 07/30, 06/11/2017 Covid-19 Vaccine ( - season) 2024 09/19/2021, 11/23/2020, 10/26/2020 Hemoglobin A1C 08/19/2024 02/18/2024, 12/07/2018 eGFR 03/28/2025 03/28/2024, 0608/2023, 01/30/2020 Fall Risk Assessment 04/21/2025 04/21/2024, 03/28/2024, 01/30/2020 Influenza Vaccine (Season Ended) 2025 09/19/19 22 Goals Goal Patient Goal Type Associated Problems [...] as needed Medical Devices Implanted Type Area Jig Inspector Device Identifier Shelf Expiration Date Model / Serial / Lot [employer] Proclaim Elite 4.95cmx5.55cm 5 Implantable Pulse Tonic 3660 Contrlsys - [id number] Implanted:Qty: 1 on 05/14/2022 by Shawn Boyce MD PhD at [facility] Other - see comments N/A: Back [employer] 3660 CONTRLSYS / / Description:Pulse generator Spinal Cord Stimulator-06/2017 Implanted:07/30 by Lamonte Donahue MD (Quantity not on file) Spinal Cord Stimulator Back [employer] Description:Model name lead1 [id number] Serial [id number] Implanted date 08-09-17 NEVRO SPINAL CORD STIMULATOR Per the vendor, this patients device exceeds the allowed impedence to safely have an MRI without surgical replacement Hip Bilater al: Hip Description:Total hip replac ment x2 [employer] Vascade Mvp 6-12fr Venous Closure [id number] - [id number] Implanted:Qty: 1 on 02/21/2024 by Abhilash Smith MD at [facility] [employer] 11/07/2025 800-612C-10 U / / [id number] [employer] Vascade Mvp 6-12fr Venous Closure [id number] - [id number] Implanted:Qty: 1 on 02/21/2024 by Abhilash Smith MD at [facility] 11/07/2025 [id number]-10 U / / [id number] [employer] Vascade Mvp 6-12fr Venous Closure [id number] - [id number] Implanted:Qty: 1 on 02/21/2024 by Abhilash Smith MD at [facility] 11/07/2025 [id number]-10 U / / [id number] A Procedures Procedure Name Priority Date/Time Associated Diagnosis Comments TRANSTHORACIC ECHO (TTE) COMPLETE W DOPPLER/CF W CONTRAST Routine 12/20/2024 3:55 PM CDT Persistent atrial fibrillation (HCC) ELECTROCARDIOGRAM REPORT Routine 025 7:53 AM CORE FILER Persistent atrial fibrillation (HCC) EGFR Routine 03/28/2024 [...] PM CDT Narrative 12/20/2024 4:16 PM CDT [facility] Cardiology [address], [place] [address] [address], [place] [address] P:[phone] P:[phone] Echocardiographic Report Patient Name: JASON BHATT BE : 1945 Study Date: 12/20/2024 2:35:57 PM Gender: M Tech: Location: [facility] Provider: SANJAY OLIVAREZ Height(Cm): 188 BSA: 2.71 Weight(Kg): 140.6 Heart Rate: 79 BP: 134 / 72 Quality: Good Order Provider: SANJAY OLIVAREZ PROCEDURES: Echocardiographic Report: Transthoracic echocardiogram with complete [...] FINDINGS: Interpretation Site: Exam was interpreted at [facility]. Left Ventricle: Normal left ventricular systolic function. [...] dilated. Atrial fibrillation. Electronically Signed By: Sanjay Olivarez MD 12/20/2024 4:15:31 PM CDT Procedure Note Sanjay Olivarez MD - 12/20/2024 [facility] [address] [facility] [address], [place] [address] [address] [facility] [address], [place] [address] P:[phone] P:[phone] Echocardiographic Report Patient Name: JASON BHATT BE : 1945 Study Date: 12/20/2024 2:35:57 PM Gender: M Tech: Location: [facility] Provider: SANJAY OLIVAREZ Height(Cm): 188 BSA: 2.71 Weight(Kg): 140.6 Heart Rate: 79 BP: 134 / 72 Quality: Good Order Provider: SANJAY OLIVAREZ PROCEDURES: Echocardiographic Report: Transthoracic echocardiogram with complete [...] [ 0.60 - 1.00 ] TR Peak Boogei 2.89m/s [ 1.00 - 2.80 ] LA [...] FINDINGS: Interpretation Site: Exam was interpreted at [facility]. Left Ventricle: Normal left ventricular systolic function. [...] dilated. Atrial fibrillation. Electronically Signed By: Sanjay Olivarez MD 12/20/2024 4:15:31 PM CDT Sanjay Olivarez MD CV ECHO PROCEDURES Final Result * Electrocardiogram Report (10/24/2024 7:53 AM CORE FILER) Sanjay Olivarez MD ECG ORDERABLES Final Res ult * [...] was last reviewed 2021. Testing performed by: [facility], [address] [place], [place] [address], [place] [address] Blood 03/28/2024 11:2 5 AM CDT 03/28/2024 12:07 PM CDT Nereyda Ravi IN FLIGHT REFUELING MANAGER LAB BLOOD ORDERABLES Final Res ult Performing Organization Address [facility] de Phone Number BIPIN PERALTA [address] [place] [address] * (ABNORMAL) Hemoglobin A1c (02/18/2024 12:22 PM CDT) Hgb A1C 5.9(H) 4.0 - 5.6 % Estimated Average Glucose 123 mg/dL BIPIN PERALTA Comment: The ADA recommends reporting an estimated Average Glucose (eAG) with all Hemoglobin A1c results using the equation derived from a study of 507 normal and diabetic adults. Minority populations were underrepresented and children were not included. (Diabetes Care 31:4104-4021, 2008). The eAG is not equivalent to a fasting glucose. Blood 02/18/2024 12:2 2 PM CDT 02/18/2024 12:22 PM CDT Crystal Harrell IN FLIGHT REFUELING MANAGER LAB BLOOD ORDERABLES Final Res ult Performing Organization Address [facility] Co de Phone Number BIPIN PERALTA [address] Department [place] [address] * Lipid panel (11/01/2019) SCRIBED Cholesterol, Total 158 <200 EXTERNAL LAB SCRIBED HDL 22 >40 EXTERNAL LAB SCRIBED LDL 82 <100 EXTERNAL LAB SCRIBED Triglycerides 262 <150 EXTERNAL LAB Blood specimen (specimen) us Historical Provider LAB BLOOD ORDERABLES Edit ed Result - Final EXTERNAL LAB from Last 3 Months or Most Recently Relevant to Health Maintenance Insurance [employer] FOR LIFE MEDICARE [facility] Address: [facility] [address] [place] [address] [employer] FOR LIFE MEDICARE MEDICARE [facility] Advance Directives For more information, please contact: [phone] * Full Code (Latest Code Status on File) Date Activated Date Inactivated Comments 07/14/2018 10:13 AM 07/14/2018 12:31 PM Care Teams Optical Instrument Assembler Relationship Specialty Start Date End Date Aj Tejeda MD [address] [facility] [address] [place] [address] PCP - General 10/06/18
--- OUTSIDE RECORDS SUMMARY | 2024-12-26 13:43 | XMS_ITS | Clinical Summary ---
Author Organization [facility] Address [facility] [place] [address] Care Team Providers Care Vrt Mechanic Name Role Phone Unavailable Primary Care [...] Td Vaccines ( 1 - Tdap) 1962 Pneumococcal Vaccine: 50+ Ye ars (1 of 1 - PCV) 1993 Zoster Vaccines (1 of 2) 1993 RSV Immunization or 60+ Years (1 - 1-dose 75+ series) 2018 COVID-19 Vaccine ( - 2023-2 5 season) 2024 Meningococcal B Vaccine Aged Out No l onger eligible based on patient's age to complete this topic Meningococcal Vaccine Aged Out No rigoberto ulysses eligible based on patient's age to complete this topic RSV Immunizations Under 20 Months Aged Out No longer eligible based on patient's age to complete this topic
--- OUTSIDE RECORDS SUMMARY | 2024-12-26 13:43 | XMS_ITS ---
Author Name [facility] [place] [facility] [place] Address [address] [place] [address] Care Team Providers Care Yield Engineer Name Role Phone DAGMAR JONES Primary Care [...] PART A Feb 28, 2008 PART A [id number] [phone] RAMA BHATT ER PATIENT MEDICARE (WNR) MEDICARE (M) PART B Feb 28, 2008 PART B [id number] RAMA BHATT ER PATIENT MEDICARE (WNR) MEDICARE (M) PART A Feb 28, 2008 PART A [id number] RAMA BHATT ER PATIENT MEDICARE (WNR) MEDICARE (M) PART B Feb 28, 2008 PART B [id number] RAMA BHATT ER PATIENT -FO R-LIFE [facility] RE FOR LIFE WNR Feb 28, 2008 FOR LIFE [id number] [phone] RAMA BHATT ER PATIENT Selected Encounter This section includes the information on record at [place] for the Encounter. Date/Time Encounter Type Encounter Description Reason Pro vider Source Dec 26, 2024 09:35 AM Outpatient Encounter ADMIN PAT ACTIVTIES (MASNONCT) I[facility] Encounter Template Text not used by [place] Plan of Treatment: Future Appointments (+ 6 months) and Future Tests (+/- 45 days) The Plan of Treatment section includes future care activities for the patient from all [place] treatmentfacilities. This section includes future appointments and future orders which are active, pending or scheduled. Future Appointments This section includes appointments that were scheduled to occur 6 months from the date of the Encounter, up to a maximum of 20 appointments. The data comes from all [place] treatment facilities. Appointment Date/Time Appointment Type Appointme nt Facility Name January 04, 2025 11:00 AM AMBULATORY - MEDICINE [facility] Active, Pending, and Scheduled Orders This section includes a listing of several types of active, pending, and scheduled orders, including clinic medications orders, diagnostic test orders, procedure orders and consult orders; where the start date of the order is 45 days before the date of the Encounter or 45 days after the date of theEncounter. The data comes from all [place] treatment facilities. Test Date/Time Test Type Test Details Facility Name Nov 29, 2024 01:39 PM Consult Order NEUROLOGY OUTPATIENT TERE Cons Party Coordinator's Choice [facility] Dec 04, 2024 12:00 AM Imaging - General Radiology Order CHEST X-RAY, 2 VIEWS [facility] Dec 04, 2024 08:48 AM Procedure Order CP EKG STL CP EKG - STL Proc Party Coordinator's [facility] Lab Results: +/- 30 days of the encounter This section includes the Chemistry and Hematology Lab Results on record with [place] for the patient. Radiology Reports and Pathology Reports are provided separately, in subsequent sections. Lab Results This section contains the Chemistry/Hematology Results that were resulted 30 days before or 30 daysafter the date of the Encounter. Date/Time Source Result Type Result - Unit Interpretation Reference Range Specimen Type Comment Dec 05, 2024 02:17 PM [facility] URINALYSIS (STL-PB) URINE Specimen Type: URINE No comment entered. Ordering Provider: ASHLEY AGUILLON Report Released Date/Time: Dec 04, 2024 08:48 AM Reporting Lab: [address] [address] Performing Lab: [address] [address] URINE COLOR Light-Yellow Yellow U.BILIRUBIN Negative mg/dL Negative U.PH 6.0 5.0-8.0 APPEARANCE Clear Clear U.NITRITE Negative mg/dL Negative URN.GLUCOSE Normal mg/dL Negative URN.PROTEIN Negative mg/dL URN.UROBILINOGEN Normal mg/dL Normal URN.BLOOD Negative mg/dL Negative-Trace URN.KETONES Negative mg/dL Negative-Trac e URN.LEUK.EST. Negative mg/dL Negative-Tr nixon URN.SPECIFIC GRAVITY 1.012 Dec 05, 2024 02:10 PM [facility] COMPREHENSIVE METABOLIC PANEL PLASMA Specimen Type: PLASMA Comment: LDL calculation invalid when Triglyceride exceeds 250 mg/dl No hemolysis noted. Ordering Provider: ASHLEY AGUILLON Report Released Date/Time: Dec 04, 2024 08:48 AM Reporting Lab: [address] [address] Performing Lab: [address] [address] CREATININE 1.76 mg/dL H 0.7-1.3 UREA NITROGEN [...] 38.4 >60 Dec 05, 2024 02:10 PM [facility] CBC BLOOD Specimen Type: BLOOD No comment entered. Ordering Provider: ASHLEY AGUILLON Report Released Date/Time: Dec 04, 2024 08:48 AM Reporting Lab: [facility] [address] [facility] [address] Performing Lab: [address] [address] WBC 11.5 10*3/uL H 3.6-11.2 RBC 5.55 [...] 0.00-0. 20 Dec 05, 2024 02:10 PM [facility] LIPID PANEL (STL) PLASMA Specimen Type: PLASM A Comment: LDL calculation invalid when Triglyceride exceeds 250 mg/dl No hemolysis noted. Ordering Provider: ASHLEY AGUILLON Report Released Date/Time: Dec 04, 2024 08:48 AM Reporting Lab: [facility] [address] [place] [id number] Performing Lab: [address] [address] CHOLESTEROL 209 mg/dL H 0-200 TRIGLYCERIDE 296 mg/dL H 0-150 DIRECT LDL 151 mg/dL >100 CALCULATED LDL comment mg/dL HDL(New) 29 mg/dL L >40 Dec 05, 2024 02:10 PM [facility] HGA1C BLOOD Specimen Type: BLOOD No comment entered. Ordering Provider: ASHLEY AGUILLON Report Released Date/Time: Dec 04, 2024 08:48 AM Reporting Lab: [facility] [address] [facility] [address] Performing Lab: [place] [address] [place] [id number] HGA1C 6.2 H 4.0-6.0 Dec 05, 2024 02:10 PM [facility] PROST. SPECIFIC AG.(PB-STL) SERUM Specimen Ty pe: SERUM Comment: The listed sex of this patient may not be a typical indication for this test. Therefore, reference ranges or interpretive criteria listed may not be valid. Clinical correlation suggested. Ordering Provider: ASHLEY AGUILLON Report Released Date/Time: Dec 04, 2024 08:48 AM Reporting Lab: [place] [address] [facility] [address] Performing Lab: [place] [address] [facility] [address] PROST. SPECIFIC AG.(PB-STL) 1.519 ng/mL 0-4 Dec 05, 2024 02:10 PM [facility] HEP C Ab HCV Ab (STL) SERUM Specimen Type: SE RUM Comment: The listed sex of this patient may not be a typical indication for this test. Therefore, reference ranges or interpretive criteria listed may not be valid. Clinical correlation suggested. Ordering Provider: ASHLEY AGUILLON Report Released Date/Time: Dec 04, 2024 08:48 AM Reporting Lab: [place] [address] [facility] [address] Performing Lab: [place] [address] HEP C Ab HCV Ab (STL) Nonreactive Nonrea ctive Dec 05, 2024 02:10 PM [facility] TSH W/ REFLEX FT4 (STL) PLASMA Specimen Type: PLASMA No comment entered. Ordering Provider: ASLHEY AGUILLON Report Released Date/Time: Dec 04, 2024 08:48 AM Reporting Lab: [facility] [address] [place] [address] Performing Lab: [facility] [address] [place] [facility] [place] [address] TSH 3.793 u[IU]/mL 0.47-5 Encounter Notes: All associated encounter notes This section contains the clinical notes associated to the Encounter. Date/Time Encounter Note(s) Provider Source Dec 26, 2024 09:35 AM ADMINISTRATIVE NOT E: LOCAL TITLE: CCC: SCHEDULING ADMINISTRATION STANDARD TITLE: ADMINISTRATIVE NOTE DATE OF NOTE: DEC 26, 2024@09:35:43 ENTRY DATE: DEC 26, 2024@09:35:43 AUTHOR: LISA JACOBSON ED COSIGNER: URGENCY: STATUS: COMPLETED Caller Verification Emergency Contact: MARY ANN CATHERINESUSY Emergency Contact Caller/Recipient Relation to Patient: Self Caller Name: DORIS BHATT Administrative Administrative Note Reason: Other Administrative Note Comments: WANTING TO SCHEDULE WITH [place]-AUDIO, REQUESTING A CALL BACK. IMPORTANT: This note was created by [facility] Clinical Contact Center staff. Please do not alert the staff member by adding them as a signer for future communications. Alerts are not monitored by this user. /gogo/ LISA JACOBSON Signed: 12/26/2024 09:35 Receipt Acknowledged By: * AWAITING SIGNATURE * CLARISSA CRONIN VALERIE EDITH [facility]
--- OUTSIDE RECORDS SUMMARY | 2024-12-26 13:43 | XMS_ITS | Encounter Summary ---
Author Organization [facility] Address [address] [place] [address] Care Team Providers Care Engineer Third Assistant Name Role Phone Aj Tejeda MD Primary Care Provider Reason for Visit * Reason Onset Date Comments Med Refill 11/24/2018 Encounter Details Date Type Department Care Team (Late st Contact Info) Description 11/24/2018 Telephone [facility] [address] [facility] [address] [place] [address] [place] [address] [place] [address], [place] [address] Med Refill Social History Tobacco Use Types Packs/Day Years Used Date Smoking Tobacco: Former Smokeless Tobacco: Never Alcohol Use Standard Drinks/Week Comments Yes 6 (1 standard drink = 0.6 oz pur e alcohol) Sex and Gender Information Value Date Recorded Sex Assigned at Not on file 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
--- OUTSIDE RECORDS SUMMARY | 2024-12-26 13:43 | XMS_ITS | Encounter Summary ---
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 Date/Time Encounter Type Encounter Description Reason Provider Source Dec 05, 2024 12:30 PM OFFICE O/P [place] 60 MIN GENERAL INTERNAL MEDICINE ICD-10-CM Z77.29 Contact with and exposure to other hazardous substances ASHLEY AGUILLON IHE Encounter Template Text not used by [place] Assessments - Encounter Diagnoses This section includes the primary and secondary diagnoses documented for the Encounter. Date/Time Primary/Secondary Diagnosis Diagnosis Name Provider Source Dec 05, 2024 01:55 PM PRIMARY Contact with and exposure to other hazardous substances ASHLEY AGUILLON [facility] Plan of Treatment: Future Appointments (+ 6 months) and Future Tests (+/- 45 days) The Plan of Treatment section includes future care activities for the patient from all [place] [facility] This section includes future appointments and future orders which are active, pending or scheduled. Future Appointments This section includes appointments that were scheduled to occur 6 months from the date of the Encounter, up to a maximum of 20 appointments. The data comes from all [facility]. Appointment Date/Time Appointment Type Appointme nt Facility Name January 04, 2025 11:00 AM AMBULATORY - MEDICINE [facility] Active, Pending, and Scheduled Orders This section includes a listing of several types of active, pending, and scheduled orders, including clinic medications orders, diagnostic test orders, procedure orders and consult orders; where the start date of the order is 45 days before the date of the Encounter or 45 days after the date of theEncounter. The data comes from all [facility]. Test Date/Time Test Type Test Details Facility Name Nov 29, 2024 01:39 PM Consult Order NEUROLOGY OUTPATIENT TERE Cons [facility] Dec 04, 2024 12:00 AM Imaging - General Radiology Order CHEST [facility]-RAY, 2 [facility] Dec 04, 2024 08:48 AM Procedure Order CP EKG STL CP EKG - STL Proc [facility] Lab Results: +/- 30 days of the encounter This section includes the Chemistry and Hematology Lab Results on record with [place] for the patient. Radiology Reports and Pathology Reports are provided separately, in subsequent sections. Lab Results This section contains the Chemistry/Hematology Results that were resulted 30 days before or 30 daysafter the date of the Encounter. Date/Time Source Result Type Result - Unit Interpretation Reference Range Specimen Type Comment Dec 05, 2024 02:17 PM [facility] URINALYSIS (STL-PB) URINE Specimen Type: URINE No comment entered. Ordering Provider: ASHLEY AGUILLON Report Released Date/Time: Dec 04, 2024 08:48 AM Reporting Lab: [address] [address] Performing Lab: [address] [address] URINE COLOR Light-Yellow Yellow U.BILIRUBIN Negative mg/dL Negative U.PH 6.0 5.0-8.0 APPEARANCE Clear Clear U.NITRITE Negative mg/dL Negative URN.GLUCOSE Normal mg/dL Negative URN.PROTEIN Negative mg/dL URN.UROBILINOGEN Normal mg/dL Normal URN.BLOOD Negative mg/dL Negative-Trace URN.KETONES Negative mg/dL Negative-Trac e URN.LEUK.EST. Negative mg/dL Negative-Tr nixon URN.SPECIFIC GRAVITY 1.012 Dec 05, 2024 02:10 PM [facility] COMPREHENSIVE METABOLIC PANEL PLASMA Specimen Type: PLASMA Comment: LDL calculation invalid when Triglyceride exceeds 250 mg/dl No hemolysis noted. Ordering Provider: ASHLEY AGUILLON Report Released Date/Time: Dec 04, 2024 08:48 AM Reporting Lab: [address] [address] Performing Lab: [address] [address] CREATININE 1.76 mg/dL H 0.7-1.3 UREA NITROGEN [...] 38.4 >60 Dec 05, 2024 02:10 PM [facility] CBC BLOOD Specimen Type: BLOOD No comment entered. Ordering Provider: ASHLEY AGUILLON Report Released Date/Time: Dec 04, 2024 08:48 AM Reporting Lab: [address] [address] Performing Lab: [address] [address] WBC 11.5 10*3/uL H 3.6-11.2 RBC 5.55 [...] 0.00-0. 20 Dec 05, 2024 02:10 PM [facility] LIPID PANEL (STL) PLASMA Specimen Type: PLASM A Comment: LDL calculation invalid when Triglyceride exceeds 250 mg/dl No hemolysis noted. Ordering Provider: ASHLEY AGUILLON Report Released Date/Time: Dec 04, 2024 08:48 AM Reporting Lab: [address] [address] Performing Lab: [address] [address] CHOLESTEROL 209 mg/dL H 0-200 TRIGLYCERIDE 296 mg/dL H 0-150 DIRECT LDL 151 mg/dL >100 CALCULATED LDL comment mg/dL HDL(New) 29 mg/dL L >40 Dec 05, 2024 02:10 PM [facility] HGA1C BLOOD Specimen Type: BLOOD No comment entered. Ordering Provider: ASHLEY AGUILLON Report Released Date/Time: Dec 04, 2024 08:48 AM Reporting Lab: [address] [address] Performing Lab: [address] [address] HGA1C 6.2 H 4.0-6.0 Dec 05, 2024 02:10 PM [facility] PROST. SPECIFIC AG.(PB-STL) SERUM Specimen Ty pe: SERUM Comment: The listed sex of this patient may not be a typical indication for this test. Therefore, reference ranges or interpretive criteria listed may not be valid. Clinical correlation suggested. Ordering Provider: ASHLEY AGUILLON Report Released Date/Time: Dec 04, 2024 08:48 AM Reporting Lab: [address] [address] Performing Lab: [address] [address] PROST. SPECIFIC AG.(PB-STL) 1.519 ng/mL 0-4 Dec 05, 2024 02:10 PM [facility] HEP C Ab HCV Ab (L) SERUM Specimen Type: SE RUM Comment: The listed sex of this patient may not be a typical indication for this test. Therefore, reference ranges or interpretive criteria listed may not be valid. Clinical correlation suggested. Ordering Provider: ASHLEY AGUILLON Report Released Date/Time: Dec 04, 2024 08:48 AM Reporting Lab: [address] [address] Performing Lab: [place] [address] [address] [facility] [address] HEP C Ab HCV Ab ([facility]) Nonreactive Nonrea ctive Dec 05, 2024 02:10 PM [facility] TSH W/ REFLEX FT4 ([facility]) PLASMA Specimen Type: PLASMA No comment entered. Ordering Provider: ASHLEY AGUILLON Report Released Date/Time: Dec 04, 2024 08:48 AM Reporting Lab: [place] [address] [facility] [address] Performing Lab: [place] [address] [facility] [address] TSH 3.793 u[IU]/mL 0.47-5 Vital Signs: All taken on the encounter date This section contains inpatient and outpatient Vital Signs collected on the date of the Encounter. Date/Time Temperature Pulse Blood Pressure Respiratory Rate SP02 Pain Height Weight Body Mass Index Source Dec 05, 2024 12:42 PM 76 139/83 20 [facility] Dec 05, 2024 12:38 PM 98.3 75 145/84 20 97 [address] [facility] N Encounter Notes: All associated encounter notes This section contains the clinical notes associated to the Encounter. Date/Time Encounter Note(s) Provider Source Dec 05, 2024 03:34 PM PHYSICIAN LETTERS: LOCAL TITLE: TEST RESULT GENERAL LETTER STL STANDARD TITLE: PHYSICIAN LETTERS DATE OF NOTE: DEC 05, 2024@15:34 ENTRY DATE: DEC 05, 2024@15:34:04 AUTHOR: ASHLEY AGUILLON EXP COSIGNER: URGENCY: STATUS: COMPLETED [facility] [address] [place] [address] DEC 05, 2024 JASON BHATT [address], [place] [address] Dear Jason Bhatt, I would like to update you on your recent test results. LIPID PROFILE - High cholesterol and triglycerides (lipids) are risk factors for heart disease. Your cholesterol should fall between 140 and 200, and your triglycerides levels should be less than or equal to 150. HDL is the good cholesterol and should ideally be greater than 40. LDL is the bad cholesterol and optimal levels should be less than 100 (near optimal is between 100 and 129). TRIGLYCERIDE 296 H mg/dL 12/05/2024 14:10 CHOLESTEROL 209 H mg/dL 12/05/2024 14:10 HDL(New) 29 L mg/dL 12/05/2024 14:10 DIRECT LDL 151 mg/dL 12/05/2024 14:10 CALCULATED LDL comment mg/dL 12/05/2024 14:10 DIRECT LDL 151 mg/dL 12/05/2024 14:10 These results are abnormal. cholesterol is HIGH, should be under 200. Triglygerides are HIGH should bve less than 150. LDL is HIGH, should be 100-130. Discuss medication changes to your Fenofibrate and Fish Oil with your outside provider. Cut back on fried foods, red meat consumption and saturated fats like butter, pork diamond, sausage, cheese, sour cream, cream cheese, etc. GLUCOSE - Your blood sugar or glucose level result GLUCOSE GLUCOSE 96 mg/dL 12/05/2024 14:10 These readings are within normal limits. HEMOGLOBIN A1C - Gives us information about your diabetes (sugar or glucose) control over the past 3 months. Your target is to keep your A1C below 6 %. HGA1C 6.2 H % 12/05/2024 14:10 These results are abnormal. you have PREDIABETES, weight loss is strongly advised. Cut back on sweets, and carbohydrates like bread, pasta, potatoes, corn, rice and beans like chili. You will be diabetic once the hba1c reaches 6.5% CBC - A complete blood count (CBC) gives important information about the kinds and numbers of cells in the blood, especially red blood cells, white blood cells, and platelets. HGB 13.4 g/dL 12/05/2024 14:10 HEMATOCRIT 46.1 % (12/05/24 14:10) PLT 413 H 10*3/uL 12/05/2024 14:10 WHITE BLOOD COUNT 11.5 10*3/uL H (12/05/24 14:10) These results are abnormal. white blood cell count is HIGH, should be 3.6-11.2, any signs of an infection? Your platelet count is HIGH, should be 150-400, monitor for now. CHEM 7 - This is important information about the current status of your kidneys, liver, and electrolyte and acid/base balance as well as of your blood sugar and blood proteins. SODIUM 138 mEq/L 12/05/2024 14:10 POTASSIUM 4.5 mEq/L 12/05/2024 14:10 CHLORIDE 103 mEq/L 12/05/2024 14:10 UREA NITROGEN 21.5 mg/dL 12/05/2024 14:10 CREATININE 1.76 H mg/dL 12/05/2024 14:10 CALCIUM 10.1 mg/dL 12/05/2024 14:10 CARBON DIOXIDE 29 mEq/L 12/05/2024 14:10 GLUCOSE 96 mg/dL 12/05/2024 14:10 EGFR (CKD-EPI 2020) 38.4 12/05/2024 14:10 These results are abnormal. creatinine is HIGH, should be 0.7-1.3, drink more water. You have chronic kidney disease stage 3b, as your GFR is 38.4 Hep C - This is important information about your exposure to infectious disease. Infection with hepatitis C can lead to liver damage. Hepatitis C has effective treatment. [facility] Hep C tests in last five years. HEP C Ab HCV Ab ([facility]) Nonreactive S/CO (12/05/24 14:10) The reading for Hep C was negative . LIVER FUNCTION PANEL - These are tests for liver function: PROTEIN 7.4 g/dL 12/05/2024 14:10 ALBUMIN 4.2 g/dL 12/05/2024 14:10 TOTAL BILIRUBIN 0.4 mg/dL 12/05/2024 14:10 ALKALINE PHOSPHATASE 72 U/L 12/05/2024 14:10 AST/SGOT 18 U/L 12/05/2024 14:10 ALT/SGPT 21 U/L 12/05/2024 14:10 These readings are within normal limits. PSA - Prostate-specific antigen is a protein produced by cells of the prostate gland. The PSA test measures the level of PSA in the blood. PSA PROST. SPECIFIC AG.(PB-STL) 1.519 ng/mL 12/05/2024 14:10 These readings are within normal limits. TSH - Thyroid-stimulating hormone (also known as TSH or thyrotropin) is a peptide hormone synthesized and secreted by thyrotrope cells in the anterior pituitary gland, which regulates the endocrine function of the thyroid gland. TSH TSH 3.793 uIU/mL 12/05/2024 14:10 These readings are within normal limits. URINALYSIS - A urinalysis (or UA ) is an array of tests performed on urine and one of the most common methods of medical diagnosis. URINALYSIS URINE COLOR Light-Yellow 12/05/2024 14:17 APPEARANCE Clear 12/05/2024 14:17 U.PH 6.0 12/05/2024 14:17 U.BILIRUBIN Negative mg/dL 12/05/2024 14:17 U.NITRITE Negative mg/dL 12/05/2024 14:17 These readings are within normal limits. OTHER TEST RESULTS RADIOLOGY (NON-INVASIVE TEST RESULTS): CXR 12/05/2024:pending radiology reading FUTURE APPOINTMENTS: 11/28/2025 14:00 [facility] E4 PCP Sincerely, ASHLEY AGUILLON MSN SENIOR TERADATA DEVELOPER ANP- Nurse Practitioner Primary Care JASON BHATT [facility] Dec 05, 2024 12:48 PM ENVIRONMENTAL HEALTH CONSULT: LOCAL TITLE: ENVIRONMENTAL REGISTRY CONSULT NOTE STL STANDARD TITLE: ENVIRONMENTAL HEALTH CONSULT DATE OF NOTE: DEC 05, 2024@12:48 ENTRY DATE: DEC 05, 2024@12:48:17 AUTHOR: ASHLEY AGUILLON COSIGNER: URGENCY: STATUS: COMPLETED Reason for visit: Agent Ludell Registry Exam AGENT ORANGE ENVIRONMENTAL EXAM Prior to the exam, the nature of the environmental exam was discussed, that it was an independent medical exam for research registry purposes and that the exam was not intended for diagnosis, treatment, or treatment recommendations. The voiced understanding and all questions relating to the exam-type and content were addressed. The Agent Ludell Environmental Exam is based on the history given by the . No Medical record review, chart review, or other supportive documentation was sought or used for the evaluation. The exam may include review of the chest X-ray, blood work, and EKG ordered as part of the documentation for the Agent Ludell exam. The [place] is advised to follow up with a medical provider to discuss any potential or actual abnormalities in the test results (if completed) for possible diagnosis, treatment, or recommendations. Consent for this evaluation was signed by the . Privacy statement was provided to . (An 'X' indicates the presence of the condition, unchecked indicates the absence of the condition.) JASON BHATT [phone] [address], [place] [phone] Current status: outpatient Sex:MALE Race:WHITE Ethnicity:NOT OR Age:79 Marital status: [ ] [ ] [ ] [ X ] [ ] Single, never [ ] Other: Branch of Service: [ X ] [employer] [ ] [place] [ ] [employer] [ ] [employer] [ ] [employer] [ ] [employer] Other: Location Description: Location [place] Served: [ X ] [place] [ ] [place] (1967 or 1970) [ ] [place] [ ] Other: Battalion/ Units [place] Served With: [address] [place] [address], [employer] Location in country: [place]; [place]; [employer] Exposure Period for Agent Ludell (may be more than one) start and end dates: 11/28/1966 to 11/29/1967 Dates of Service: Entry into active duty date (start date): 11/10/1966 Discharge date (end date): 08/17/1969 Inducted at: [facility] List Bases where served: basic 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 (specify dates) [ ] CORPS I Dates: to [ ] CORPS II Dates: to [ X ] CORPS III Dates: 11/28/1966 to 11/29/1967 [ ] CORPS IV Dates: to [ ] Sea Duty Dates: to [ ] Other: Dates: 11/28/1966 to 11/29/1967 Social History: Physical Activity: Do you routinely participate in any physical activities or exercises? No Which physical activities or exercises do you routinely participate? (ex. Walking, running, calisthenics, sports) How often do you usually participate in this physical activity or exercise? [ X ] none [ ] 1x/week [ ] 2x/week [ ] 3x/week [ ] > 3x/week How long do you usually participate in this physical activity or exercise? 0 Habits: Tobacco Use: Do you currently smoke? No How many cigarettes do you smoke each day? 0 How old were you when you began smoking? age 10 Have you ever smoked cigarettes even occasionally? Yes When did you last stop? 2004 Do you use any other form(s) of tobacco? no If so, which one(s)? none Do you live in a household where someone else smokes (second hand smoke exposure)? No Alcohol use: In the past year, how often did you drink any type of alcoholic beverage (included are liquors such as whiskey or gin, beer, wine coolers, and any other type of alcoholic beverage)? Yes On average how may days did you drink? By a drink we mean at least half an ounce of absolute alcohol (e.g. 12 ounce can of beer, 5 ounce glass of wine, or a drink containing at least 1 shot of liquor) 1 Illicit or Recreational Substance Use: Do you currently use any substance, illegal or prescription, that is not prescribed by your medical doctor (i.e. marijuana, opioid, prescription medications)? 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 occupation steen/retired Sister(s): 2 full sisters, 1 age 68,cancer of leg/sarcoma. 1 living age 97, good health Brother(s): 4 full brothers, 3 from old age; lung cancer; lung cancer. 1 living age 85, healthy Remarks: Exposures: Please bakari each as: 1. Definitely yes 2. Not Sure 3. Definitely no While in [place] service the : 1. Was involved in handling/spraying Agent Ludell 1, in back of his helicopter delivered it 2. Was in a recently sprayed area 1 3. Was in contact with other herbicides 1 Specify:CS gas 4. Was directly sprayed with Agent Ludell 2 5. Ate food/drank water that may have been contaminated w/ Agent Ludell 3 Self-assessment/describe veterans health [ ] Very good [ ] Good [ ] Fair [ X ] Poor [ ] Very Poor What is/are your chief complaint/exposure(s) of most concern and related to this registry exam? neuropathy in lower legs started 2018; colon cancer removed in 2013, 18 inches removed; left kidney removed for renal cancer in 2012; atrial fibrillation started 2018; hearing loss since [id number]; hyperlipidemia Claimed Conditions (already claimed or to be claimed): [ ] Amyloid light-chain amyloidosis [ ] Chronic B-cell leukemia [ ] Diabetes type 2 [ ] Hodgkins disease [ ] Ischemic heart disease [ ] Multiple Myeloma [ ] Non-Hodgkins lymphoma [ ] Parkinsons Disease/Parkinsonism [ ] Prostate cancer [ ] Bladder cancer [ ] Hypothyroidism [ ] Monoclonal gammopathy of undetermined significance (MGUS) [ ] Hypertension [ ] Respiratory cancers (Lung, trachea, larynx, bronchus) Specify: [ ] Soft tissue sarcoma (not osteosarcoma, chondrosarcoma, Kaposis sarcoma or mesothelioma) Specify: Within 1 year of exposure: [ ] Peripheral neuropathy, early-onset [ ] Porphyria Cutanea Tarda [ ] Chloracne Current Diagnoses: Current medical history: 1) Family history of cancer of colon 2) personal history of colon cancer 3) personal history of renal cancer 4) Hyperlipidemia 5) Edema 6) Family history of prostate cancer 7) Elevated blood-pressure reading without diagnosis of hypertension (SNOMED CT 398942344) 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) 9) Acute renal impairment 10) Atrial fibrillation 11) Renal cancer 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 13) Neuropathy 14) Coronary artery disease [ X ] COPD [ ] DM 2 [ ] CAD [ ] IN [ ] HTN [ ] Prostate cancer [ ] CVA [ X ] CKD [ ] Dialysis [ X ] GERD [ X ] AFib [ ] CHF [ ] Hepatitis - Type: [ ] History of blood transfusion [ ] History of STDs [ X ] BPH [ X ] hypercholesterolemia [ ] allergic rhinitis Past medical and surgical history: Past medical history: 1) Family history of cancer of colon 2) personal history of colon cancer 3) personal history of renal cancer 4) Hyperlipidemia 5) Edema 6) Family history of prostate cancer 7) Elevated blood-pressure reading without diagnosis of hypertension (SNOMED CT 911218806) 8) Peripheral axonal neuropathy (SNOMED CT 828798499) 9) Acute renal impairment 10) Atrial fibrillation 11) Renal cancer 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 No If yes, please specify: Number born BEFORE service in [place]: 1 What year? 1968 Any defects? No Spina bifida? No Maternal age at conception(s): child #1 maternal age 19 Paternal age at conception(s): child #1 paternal age 23 Number born DURING/AFTER service in [place]:3 What year? 1967, 1975, 1977 Any defects? No Spina bifida? No Maternal age at conception(s): child #2 maternal age 20 child #3 maternal age 28 child #4 maternal age 30 Paternal age at conception(s): child #2 paternal age 24 child #3 paternal age 32 child #4 paternal age 34 TOTAL number of children with evidence of defects: 0 Any stillborn or miscarriages? Yes 1 Any infertility? Any infant ? No 0 (Include age of mother for any + above) Symptoms: Symptoms Vet feels are related to Agent Ludell: 1. Colon cancer, removed 18 inches of his colon ICD 10 Code: C18.9 Year it started: 2012 Is it still present? No Duration (months): 2. left kidney removed for renal cancer ICD 10 Code: C64.9 Year it started: 2012 Is it still present? No Duration (months): 3. atrial fibrillation ICD 10 Code: I48.91 Year it started: 2018 Is it still present? Yes Duration (months): 4. hearing loss, has hearing aids ICD 10 Code: H91.90 Year it started: 1965 Is it still present? Yes Duration (months): 5. Peripheral neuropathy both legs ICD 10 Code: G62.9 Year it started: 2018 Is it still present? Yes Duration (months): 6. Hyperlipidemia ICD 10 Code: E78.5 Year it started: ? Is it still present? Yes Duration (months): 7. ICD 10 Code: Year it started: Is it still present? Duration (months): 8. ICD 10 Code: Year it started: Is it still present? Duration (months): 9. ICD 10 Code: Year it started: Is it still present? Duration (months): 10. ICD 10 Code: Year it started: Is it still present? Duration (months): ===== MEDICAL HISTORY: Allergies: MORPHINE Childhood illnesses: [ ] Asthma [ X ] Measles [ ] Cancers [ X ] Other: chicken pox+ [ ] Other: Serious Injuries: 1. none 2. 3. Current Medications: MRP - MEDICATION RECONCILIATION Alphabetized list of outpatient Rx's, inpatient orders, remote and Non-VA meds Legend: OPT = VA issued outpatient prescription, INP = VA issued inpatient order Non-VA Meds Last Documented On: Nov 29, 2024 Non VA ALBUTEROL (CFC-F) INHL,ORAL INHALE BY ORAL INHALATION FOUR TIMES A DAY Remote ALBUTEROL SO4 90MCG/ACTUAT (CFC-F) INHL,ORAL,6.7GM Last Filled: 05/30/18 (Active at [facility] #[id number]) Days Supply: 17 Rx Expiration Date: Refills Remainin Non VA AMIODARONE HCL (PACERONE) 200MG TAB TAKE ONE-HALF TABLET BY MOUTH ONCE A DAY Remote AMOXICILLIN TRIHYDRATE 875MG/CLAVULANATE K 125MG TAB Last Filled: 10/01/09 (Active at [facility] #[id number]) Days Supply: 10 Rx Expiration Date: Refills Remainin Remote AMOXICILLIN TRIHYDRATE 875MG/CLAVULANATE K 125MG TAB Last Filled: 02/07/17 (Active at [facility] #[id number]) Days Supply: 10 Rx Expiration Date: Refills Remainin Remote AMOXICILLIN TRIHYDRATE 875MG/CLAVULANATE K 125MG TAB Last Filled: 02/22/17 (Active at [facility] #[id number]) Days Supply: 10 Rx Expiration Date: Refills Remainin Remote AMOXICILLIN TRIHYDRATE 875MG/CLAVULANATE K 125MG TAB Last Filled: 09/11/07 (Active at [facility] #[id number]) Days Supply: 7 Rx Expiration Date: Refills Remainin Non VA APIXABAN 5MG TAB TAKE ONE TABLET BY MOUTH TWICE A DAY Non VA ASCORBIC ACID 500MG TAB TAKE ONE TABLET BY MOUTH ONCE A DAY Medication prescribed by Non-VA provider. Remote ATORVASTATIN CA 10MG TAB Last Filled: 02/24/16 (Active at [facility] #[id number]) Days Supply: 30 Rx Expiration Date: Refills Remainin Remote ATORVASTATIN CA 10MG TAB Last Filled: 12/02/15 (Active at [facility] #[id number]) Days Supply: 30 Rx Expiration Date: Refills Remainin Remote ATORVASTATIN CA 10MG TAB Last Filled: 03/12/16 (Active at [facility] #[id number]) Days Supply: 30 Rx Expiration Date: Refills Remainin Remote ATORVASTATIN CA 10MG TAB Last Filled: 05/12/16 (Active at [facility] #[id number]) Days Supply: 30 Rx Expiration Date: Refills Remainin Remote ATORVASTATIN CA 10MG TAB Last Filled: 12/30/15 (Active at [facility] #[id number]) Days Supply: 30 Rx Expiration Date: Refills Remainin Remote ATORVASTATIN CA 10MG TAB Last Filled: 10/23/15 (Active at [facility] #[id number]) Days Supply: 30 Rx Expiration Date: Refills Remainin Remote ATORVASTATIN CA 10MG TAB Last Filled: 01/26/16 (Active at [facility] #[id number]) Days Supply: 30 Rx Expiration Date: Refills Remainin Remote ATORVASTATIN CA 10MG TAB Last Filled: 04/03/16 (Active at [facility] #[id number]) Days Supply: 30 Rx Expiration Date: Refills Remainin Remote ATORVASTATIN CA 10MG TAB Last Filled: 11/18/15 (Active at [facility] #[id number]) Days Supply: 30 Rx Expiration Date: Refills Remainin Remote ATORVASTATIN CA 10MG TAB Last Filled: 02/08/17 (Active at [facility] [employer]) Days Supply: 90 Rx Expiration Date: Refills Remainin Remote ATORVASTATIN CA 10MG TAB Last Filled: 10/08/18 (Active at [facility] [employer]) Days Supply: 90 Rx Expiration Date: Refills Remainin Remote ATORVASTATIN CA 10MG TAB Last Filled: 01/18/18 (Active at [facility] [employer]) Days Supply: 90 Rx Expiration Date: Refills Remainin Remote ATORVASTATIN CA 10MG TAB Last Filled: 10/20/17 (Active at [facility] [employer]) Days Supply: 90 Rx Expiration Date: Refills Remainin Remote ATORVASTATIN CA 10MG TAB Last Filled: 08/09/17 (Active at [facility] [employer]) Days Supply: 90 Rx Expiration Date: Refills Remainin Remote AZITHROMYCIN 250MG TAB Last Filled: 08/16/09 (Active at [facility] #[id number]) Days Supply: 5 Rx Expiration Date: Refills Remainin Remote AZITHROMYCIN 250MG TAB Last Filled: 09/25/09 (Active at [facility] #[id number]) Days Supply: 5 Rx Expiration Date: Refills Remainin Remote AZITHROMYCIN 250MG TAB Last Filled: 05/17/14 (Active at [facility] #[id number] #[id number]) Days Supply: 5 Rx Expiration Date: Refills Remainin Remote AZITHROMYCIN 250MG TAB Last Filled: 06/29/15 (Active at [facility] #[id number]) Days Supply: 5 Rx Expiration Date: Refills Remainin Remote BENZONATATE 200MG CAP Last Filled: 05/30/18 (Active at [facility] #[id number]) Days Supply: 7 Rx Expiration Date: Refills Remainin Remote BETAMETHASONE DIPROPIONATE 0.05%/CLOTRIMAZOLE 1% CREAM,TOP Last Filled: 08/02/08 (Active at [facility] #[id number]) Days Supply: 30 Rx Expiration Date: Refills Remainin Remote CEFUROXIME AXETIL 500MG TAB Last Filled: 07/24/14 (Active at [facility] #[id number] #[id number]) Days Supply: 20 Rx Expiration Date: Refills Remainin Remote CEPHALEXIN 500MG CAP Last Filled: 06/06/09 (Active at [facility] #[id number]) Days Supply: 10 Rx Expiration Date: Refills Remainin Non VA CHOLECALCIFEROL (LOW DOSE VIT D) - (OTC) TAB TAKE BY MOUTH ONCE A DAY Remote CIPROFLOXACIN HCL 500MG TAB Last Filled: 10/05/15 (Active at [facility] #[id number]) Days Supply: 14 Rx Expiration Date: Refills Remainin Remote CIPROFLOXACIN HCL 500MG TAB Last Filled: 09/09/16 (Active at [facility] #[id number]) Days Supply: 10 Rx Expiration Date: Refills Remainin Remote CIPROFLOXACIN HCL 500MG TAB Last Filled: 03/06/18 (Active at [facility] #[id number]) Days Supply: 7 Rx Expiration Date: Refills Remainin Remote CLEMASTINE FUMARATE 2.68MG TAB Last Filled: 12/26/14 (Active at [facility] #[id number] #[id number]) Days Supply: 30 Rx Expiration Date: Refills Remainin Remote CLOBETASOL PROPIONATE 0.05% OINT,TOP Last Filled: 09/27/14 (Active at [facility] [employer]) Days Supply: 90 Rx Expiration Date: Refills Remainin Remote CLOBETASOL PROPIONATE 0.05% OINT,TOP Last Filled: 03/07/15 (Active at [facility] [employer]) Days Supply: 90 Rx Expiration Date: Refills Remainin Remote CODEINE 10MG/GUAIFENESIN 100MG/5ML LIQUID Last Filled: 06/29/15 (Active at [facility] #[id number]) Days Supply: 6 Rx Expiration Date: Refills Remainin Remote CODEINE 10MG/PROMETHAZINE 6.25MG/5ML SYRUP Last Filled: 05/17/14 (Active at [facility] #[id number] #[id number]) Days Supply: 2 Rx Expiration Date: Refills Remainin Remote CYCLOBENZAPRINE HCL 10MG TAB Last Filled: 11/03/15 (Active at [facility] #68261) Days Supply: 14 Rx Expiration Date: Refills Remainin Remote CYCLOBENZAPRINE HCL 10MG TAB Last Filled: 02/02/15 (Active at [facility] #[id number]) Days Supply: 14 Rx Expiration Date: Refills Remainin Non VA FENOFIBRATE 48MG TAB TAKE ONE TABLET BY MOUTH ONCE A DAY Remote FINASTERIDE 5MG TAB Last Filled: 12/16/15 (Active at [facility] #[id number]) Days Supply: 90 Rx Expiration Date: Refills Remainin Remote FINASTERIDE 5MG TAB Last Filled: 03/31/16 (Active at [facility] #[id number]) Days Supply: 90 Rx Expiration Date: Refills Remainin Remote FINASTERIDE 5MG TAB Last Filled: 07/06/16 (Active at [facility] #[id number]) Days Supply: 90 Rx Expiration Date: Refills Remainin Remote FINASTERIDE 5MG TAB Last Filled: 08/21/16 (Active at [facility] #24519) Days Supply: 90 Rx Expiration Date: Refills Remainin Remote FINASTERIDE 5MG TAB Last Filled: 10/27/16 (Active at [facility] #[id number]) Days Supply: 90 Rx Expiration Date: Refills Remainin Remote FINASTERIDE 5MG TAB Last Filled: 05/20/17 (Active at [facility] #[id number]) Days Supply: 90 Rx Expiration Date: Refills Remainin Remote FINASTERIDE 5MG TAB Last Filled: 06/26/18 (Active at [facility] #22506) Days Supply: 90 Rx Expiration Date: Refills Remainin Non VA FISH OIL 1000MG (500MG DHA/EPA) CAP TAKE 1 CAPSULE BY MOUTH TWICE A DAY Medication prescribed by Non-VA provider. Remote FUROSEMIDE 20MG TAB Last Filled: 12/01/14 (Active at [facility] #[id number] #[id number]) Days Supply: 90 Rx Expiration Date: Refills Remainin Non VA FUROSEMIDE 20MG TAB TAKE ONE TABLET BY MOUTH EVERY MORNING Remote GABAPENTIN 300MG CAP Last Filled: 10/14/16 (Active at [facility] #[id number]) Days Supply: 15 Rx Expiration Date: Refills Remainin Remote GABAPENTIN 300MG CAP Last Filled: 12/07/16 (Active at [facility] #[id number]) Days Supply: 30 Rx Expiration Date: Refills Remainin Remote GABAPENTIN 300MG CAP Last Filled: 12/29/16 (Active at [facility] #[id number]) Days Supply: 30 Rx Expiration Date: Refills Remainin Remote GABAPENTIN 300MG CAP Last Filled: 12/29/16 (Active at [facility] #[id number]) Days Supply: 90 Rx Expiration Date: Refills Remainin Non VA GABAPENTIN 300MG CAP TAKE 2 CAPSULES BY MOUTH AT BEDTIME Patient wants to buy from Non-CA pharmacy. Medication prescribed by Non-[facility] provider. Remote HYDROCHLOROTHIAZIDE 25MG/LISINOPRIL 20MG TAB Last Filled: 04/18/10 (Active at [facility] #[id number] #[id number]) Days Supply: 30 Rx Expiration Date: Refills Remainin Remote HYDROCHLOROTHIAZIDE 50MG/TRIAMTERENE 75MG TAB Last Filled: 05/07/14 (Active at [facility] #[id number] #[id number]) Days Supply: 90 Rx Expiration Date: Refills Remainin Remote HYDROCHLOROTHIAZIDE 50MG/TRIAMTERENE 75MG TAB Last Filled: 11/26/14 (Active at [facility] #[id number] #[id number]) Days Supply: 90 Rx Expiration Date: Refills Remainin Remote HYDROCHLOROTHIAZIDE 50MG/TRIAMTERENE 75MG TAB Last Filled: 09/01/14 (Active at [facility] #[id number] #[id number]) Days Supply: 90 Rx Expiration Date: Refills Remainin Remote HYDROCODONE 5MG/ACETAMINOPHEN 325MG TAB Last Filled: 10/06/09 (Active at [facility] #[id number]) Days Supply: 5 Rx Expiration Date: Refills Remainin Remote HYDROCODONE 5MG/ACETAMINOPHEN 325MG TAB Last Filled: 10/14/09 (Active at [facility] #[id number]) Days Supply: 5 Rx Expiration Date: Refills Remainin Remote HYDROCODONE 5MG/ACETAMINOPHEN 500MG TAB Last Filled: 09/11/07 (Active at [facility] #[id number]) Days Supply: 2 Rx Expiration Date: Refills Remainin Remote HYDROCORTISONE ACETATE 25MG SUPP,RTL Last Filled: 12/27/08 (Active at [facility] #[id number]) Days Supply: 10 Rx Expiration Date: Refills Remainin Remote LEVETIRACETAM 500MG TAB Last Filled: 11/29/18 (Active at [facility]) Days Supply: 90 Rx Expiration Date: Refills Remainin Remote LISINOPRIL 10MG TAB Last Filled: 10/05/14 (Active at [facility] #[id number] #[id number]) Days Supply: 30 Rx Expiration Date: Refills Remainin Remote LISINOPRIL 10MG TAB Last Filled: 06/09/18 (Active at [facility]) Days Supply: 90 Rx Expiration Date: Refills Remainin Remote LISINOPRIL 10MG TAB Last Filled: 06/07/15 (Active at [facility]) Days Supply: 90 Rx Expiration Date: Refills Remainin Remote LISINOPRIL 10MG TAB Last Filled: 03/09/15 (Active at [facility]) Days Supply: 90 Rx Expiration Date: Refills Remainin Remote LISINOPRIL 10MG TAB Last Filled: 12/28/14 (Active at [facility]) Days Supply: 90 Rx Expiration Date: Refills Remainin Remote LISINOPRIL 10MG TAB Last Filled: 09/04/15 (Active at [facility]) Days Supply: 90 Rx Expiration Date: Refills Remainin Remote LISINOPRIL 10MG TAB Last Filled: 12/21/17 (Active at [facility]) Days Supply: 90 Rx Expiration Date: Refills Remainin Remote LISINOPRIL 10MG TAB Last Filled: 02/05/17 (Active at [facility]) Days Supply: 90 Rx Expiration Date: Refills Remainin Remote LISINOPRIL 10MG TAB Last Filled: 04/07/17 (Active at [facility]) Days Supply: 90 Rx Expiration Date: Refills Remainin Remote LISINOPRIL 10MG TAB Last Filled: 07/06/17 (Active at [facility]) Days Supply: 90 Rx Expiration Date: Refills Remainin Remote LISINOPRIL 10MG TAB Last Filled: 05/11/16 (Active at [facility]) Days Supply: 90 Rx Expiration Date: Refills Remainin Remote MELOXICAM 7.5MG TAB Last Filled: 11/11/17 (Active at [facility] #[id number]) Days Supply: 30 Rx Expiration Date: Refills Remainin Remote MELOXICAM 7.5MG TAB Last Filled: 11/11/17 (Active at [facility] #[id number]) Days Supply: 90 Rx Expiration Date: Refills Remainin Remote METHYLPREDNISOLONE 4MG TAB Last Filled: 12/02/15 (Active at [facility] #[id number]) Days Supply: 6 Rx Expiration Date: Refills Remainin Remote METOLAZONE 5MG TAB Last Filled: 09/21/14 (Active at [facility] #[id number] #[id number]) Days Supply: 30 Rx Expiration Date: Refills Remainin Remote METOLAZONE 5MG TAB Last Filled: 08/04/17 (Active at [facility] [employer]) Days Supply: 90 Rx Expiration Date: Refills Remainin Remote METOLAZONE 5MG TAB Last Filled: 12/28/14 (Active at [facility] [employer]) Days Supply: 90 Rx Expiration Date: Refills Remainin Remote METOLAZONE 5MG TAB Last Filled: 03/09/15 (Active at [facility] [employer]) Days Supply: 90 Rx Expiration Date: Refills Remainin Remote METOLAZONE 5MG TAB Last Filled: 06/07/15 (Active at [facility] [employer]) Days Supply: 90 Rx Expiration Date: Refills Remainin Remote METOLAZONE 5MG TAB Last Filled: 09/04/15 (Active at [facility] [employer]) Days Supply: 90 Rx Expiration Date: Refills Remainin Remote METOLAZONE 5MG TAB Last Filled: 12/21/17 (Active at [facility]) Days Supply: 90 Rx Expiration Date: Refills Remainin Remote METOLAZONE 5MG TAB Last Filled: 05/11/16 (Active at [facility] [employer]) Days Supply: 90 Rx Expiration Date: Refills Remainin Remote METOLAZONE 5MG TAB Last Filled: 02/11/16 (Active at [facility] [employer]) Days Supply: 90 Rx Expiration Date: Refills Remainin Remote METOLAZONE 5MG TAB Last Filled: 02/05/17 (Active at [facility] [employer]) Days Supply: 90 Rx Expiration Date: Refills Remainin Remote MOXIFLOXACIN HCL 400MG TAB Last Filled: 12/26/14 (Active at [facility] #[id number] #[id number]) Days Supply: Rx Expiration Date: Refills Remainin Remote NEPAFENAC 0.3% SUSP,OPH Last Filled: 02/21/19 (Active at [facility] #[id number]) Days Supply: Rx Expiration Date: Refills Remainin Remote NEPAFENAC 0.3% SUSP,OPH Last Filled: 02/22/19 (Active at [facility] #[id number]) Days Supply: Rx Expiration Date: Refills Remainin Remote NIACIN (EQV-NIASPAN) 1000MG TAB,SA Last Filled: 09/10/16 (Active at [facility] [employer]) Days Supply: Rx Expiration Date: Refills Remainin Remote NIACIN (EQV-NIASPAN) 1000MG TAB,SA Last Filled: 06/12/16 (Active at [facility] [employer] [facility]) Days Supply: 90 Rx Expiration Date: Refills Remainin Remote NIACIN (EQV-NIASPAN) 1000MG TAB,SA Last Filled: 12/17/15 (Active at [facility] [employer]) Days Supply: 90 Rx Expiration Date: Refills Remainin Remote NITROGLYCERIN 2% OINT,TOP Last Filled: 02/01/09 (Active at [facility]) Days Supply: 30 Rx Expiration Date: Refills Remainin Non VA OLODATEROL/TIOTROP 2.5MCG/ACTUAT 60D INH INHALE 2 PUFFS BY ORAL INHALATION ONCE A DAY Remote OXYCODONE HCL 5MG TAB Last Filled: 11/16/15 (Active at [facility]) Days Supply: 10 Rx Expiration Date: Refills Remainin Remote POTASSIUM CHLORIDE 20MEQ TAB,SA Last Filled: 09/19/16 (Active at [facility] [employer]) Days Supply: 90 Rx Expiration Date: Refills Remainin Remote POTASSIUM CHLORIDE 20MEQ TAB,SA Last Filled: 06/21/16 (Active at [facility] [employer]) Days Supply: 90 Rx Expiration Date: Refills Remainin Remote POTASSIUM CHLORIDE 20MEQ TAB,SA Last Filled: 12/20/16 (Active at [facility] [employer]) Days Supply: 90 Rx Expiration Date: Refills Remainin Remote POTASSIUM CHLORIDE 20MEQ TAB,SA Last Filled: 06/21/17 (Active at [facility] [facility]) Days Supply: 90 Rx Expiration Date: Refills Remainin Remote POTASSIUM CHLORIDE 20MEQ TAB,SA (DISPERSIBLE) Last Filled: 12/28/14 (Active at [facility] [facility]) Days Supply: 90 Rx Expiration Date: Refills Remainin Remote POTASSIUM CHLORIDE 20MEQ TAB,SA (DISPERSIBLE) Last Filled: 01/31/15 (Active at [facility] [facility]) Days Supply: 90 Rx Expiration Date: Refills Remainin Remote POTASSIUM CHLORIDE 20MEQ TAB,SA (DISPERSIBLE) Last Filled: 08/07/15 (Active at [facility] [facility]) Days Supply: 90 Rx Expiration Date: Refills Remainin Remote POTASSIUM CHLORIDE 20MEQ TAB,SA (DISPERSIBLE) Last Filled: 12/25/15 (Active at [facility]) Days Supply: 90 Rx Expiration Date: Refills Remainin Remote POTASSIUM CHLORIDE 20MEQ TAB,SA (DISPERSIBLE) Last Filled: 04/13/15 (Active at [facility] [facility]) Days Supply: 90 Rx Expiration Date: Refills Remainin Remote POTASSIUM CHLORIDE 20MEQ TAB,SA (DISPERSIBLE) Last Filled: 07/12/15 (Active at [facility]) Days Supply: 90 Rx Expiration Date: Refills Remainin Remote POTASSIUM CHLORIDE 20MEQ TAB,SA (DISPERSIBLE) Last Filled: 10/14/15 (Active at [facility]) Days Supply: 90 Rx Expiration Date: Refills Remainin Non VA POTASSIUM CL 20MEQ SA TAB (DISPERSIBLE) TAKE ONE-HALF TABLET BY MOUTH ONCE A DAY Remote RANITIDINE HCL 150MG TAB Last Filled: 09/13/07 (Active at [facility] #[id number]) Days Supply: 30 Rx Expiration Date: Refills Remainin Remote RANITIDINE HCL 150MG TAB Last Filled: 10/18/07 (Active at [facility] #[id number]) Days Supply: 30 Rx Expiration Date: Refills Remainin Remote SILDENAFIL CITRATE 100MG TAB Last Filled: 07/24/14 (Active at [facility] #[id number] #[id number]) Days Supply: 6 Rx Expiration Date: Refills Remainin Remote SILDENAFIL CITRATE 100MG TAB Last Filled: 12/26/14 (Active at [facility] #[id number] #[id number]) Days Supply: 6 Rx Expiration Date: Refills Remainin Remote SILDENAFIL CITRATE 100MG TAB Last Filled: 03/13/15 (Active at [facility] [employer] [facility]) Days Supply: 90 Rx Expiration Date: Refills Remainin Remote SILDENAFIL CITRATE 100MG TAB Last Filled: 08/07/15 (Active at [facility] [employer]) Days Supply: 90 Rx Expiration Date: Refills Remainin Remote SILDENAFIL CITRATE 100MG TAB Last Filled: 05/30/15 (Active at [facility] [employer]) Days Supply: 90 Rx Expiration Date: Refills Remainin Remote SILDENAFIL CITRATE 100MG TAB Last Filled: 02/17/17 (Active at [facility] [employer]) Days Supply: 80 Rx Expiration Date: Refills Remainin Remote SILDENAFIL CITRATE 100MG TAB Last Filled: 02/17/18 (Active at [facility] [employer]) Days Supply: 90 Rx Expiration Date: Refills Remainin Remote SILDENAFIL CITRATE 100MG TAB Last Filled: 09/21/16 (Active at [facility] [employer]) Days Supply: 90 Rx Expiration Date: Refills Remainin Remote SILDENAFIL CITRATE 100MG TAB Last Filled: 12/20/16 (Active at [facility] [employer] [facility]) Days Supply: 90 Rx Expiration Date: Refills Remainin Remote TAMSULOSIN HCL 0.4MG CAP Last Filled: 01/04/16 (Active at [facility] #[id number]) Days Supply: 30 Rx Expiration Date: Refills Remainin Remote TAMSULOSIN HCL 0.4MG CAP Last Filled: 03/12/16 (Active at [facility] #[id number]) Days Supply: 30 Rx Expiration Date: Refills Remainin Remote TAMSULOSIN HCL 0.4MG CAP Last Filled: 12/09/15 (Active at [facility] #[id number]) Days Supply: 30 Rx Expiration Date: Refills Remainin Remote TAMSULOSIN HCL 0.4MG CAP Last Filled: 02/03/16 (Active at [facility] #[id number]) Days Supply: 30 Rx Expiration Date: Refills Remainin Remote TAMSULOSIN HCL 0.4MG CAP Last Filled: 04/19/16 (Active at [facility] #[id number]) Days Supply: 30 Rx Expiration Date: Refills Remainin Remote TAMSULOSIN HCL 0.4MG CAP Last Filled: 06/17/16 (Active at [facility] #[id number]) Days Supply: 30 Rx Expiration Date: Refills Remainin Remote TAMSULOSIN HCL 0.4MG CAP Last Filled: 07/19/16 (Active at [facility] #06792) Days Supply: 30 Rx Expiration Date: Refills Remainin Remote TAMSULOSIN HCL 0.4MG CAP Last Filled: 05/20/16 (Active at [facility] #[id number]) Days Supply: 30 Rx Expiration Date: Refills Remainin Remote TAMSULOSIN HCL 0.4MG CAP Last Filled: 09/24/16 (Active at [facility] #14629) Days Supply: 30 Rx Expiration Date: Refills Remainin Remote TAMSULOSIN HCL 0.4MG CAP Last Filled: 01/28/17 (Active at [facility] #[id number]) Days Supply: 30 Rx Expiration Date: Refills Remainin Remote TAMSULOSIN HCL 0.4MG CAP Last Filled: 12/31/16 (Active at [facility] #[id number]) Days Supply: 30 Rx Expiration Date: Refills Remainin Remote TAMSULOSIN HCL 0.4MG CAP Last Filled: 10/26/16 (Active at [facility] #37759) Days Supply: 30 Rx Expiration Date: Refills Remainin Remote TAMSULOSIN HCL 0.4MG CAP Last Filled: 02/28/17 (Active at [facility] #[id number]) Days Supply: 90 Rx Expiration Date: Refills Remainin Remote TAMSULOSIN HCL 0.4MG CAP Last Filled: 06/12/17 (Active at [facility] #[id number]) Days Supply: 90 Rx Expiration Date: Refills Remainin Remote TAMSULOSIN HCL 0.4MG CAP Last Filled: 09/08/17 (Active at [facility] #[id number]) Days Supply: 90 Rx Expiration Date: Refills Remainin Remote TAMSULOSIN HCL 0.4MG CAP Last Filled: 07/07/18 (Active at [facility] #49406) Days Supply: 90 Rx Expiration Date: Refills Remainin Remote TAMSULOSIN HCL 0.4MG CAP Last Filled: 04/12/18 (Active at [facility] #[id number]) Days Supply: 90 Rx Expiration Date: Refills Remainin Remote TERBINAFINE HCL 250MG TAB Last Filled: 09/29/14 (Active at [facility] #[id number] #[id number]) Days Supply: 30 Rx Expiration Date: Refills Remainin Remote TESTOSTERONE CYPIONATE 200MG/ML INJ (IN OIL) Last Filled: 02/26/17 (Active at [facility] #34469) Days Supply: 90 Rx Expiration Date: Refills Remainin Remote TIZANIDINE HCL 4MG TAB Last Filled: 11/16/15 (Active at [facility]) Days Supply: 30 Rx Expiration Date: Refills Remainin Remote TOPIRAMATE 50MG TAB Last Filled: 03/01/19 (Active at [facility] [employer]) Days Supply: 90 Rx Expiration Date: Refills Remainin Remote TOPIRAMATE 50MG TAB Last Filled: 12/24/18 (Active at [facility] [employer]) Days Supply: 90 Rx Expiration Date: Refills Remainin Remote TRAMADOL HCL 50MG TAB,UD Last Filled: 06/10/09 (Active at [facility] #40158) Days Supply: 30 Rx Expiration Date: Refills Remainin Remote WARFARIN NA 2MG TAB Last Filled: 09/26/09 (Active at [facility] #68773) Days Supply: 30 Rx Expiration Date: Refills Remainin Remote WARFARIN NA 4MG TAB Last Filled: 10/29/09 (Active at [facility] #[id number]) Days Supply: 8 Rx Expiration Date: Refills Remainin Other medications previously dispensed in the last year: ===== REVIEW OF SYSTEMS: General Health: [ ] Denies current issues [ ] Unintended weight loss [ ] Unexplained fevers [ ] Feels well [ X ] Other: neuropathy both legs; arthritis in lower back and knees; pain stimulator implanted HEENT: [ ] Denies current issues [ X ] Other: wears glasses; [place] has hearing aids Respiratory: [ ] Denies current issues [ ] Dyspnea [ ] Chronic cough [ X ] Other: SOB on inhalers;COPD Cardiovascular: [ ] Denies current issues [ ] Angina [ X ] Other: atrial fibrillation s/p 2 cardioversions GI: [ ] Denies current issues [ X ] Other: GERD; morbid obesity : [ ] Denies current issues [ X ] Other: left kidney removed 2012 for renal cancer Hemopoietic: [ X ] Denies current issues [ ] Bleeding [ ] Other: Lymphatic: [ X ] Denies current issues [ ] Swollen lymph nodes [ ] Other: Musculo-skeletal: [ ] Denies current issues [ ] Chronic pain [ X ] Arthritis [ X ] Other: arthritis in both knees and lower back Psychiatric: [ X ] Denies current issues [ ] PTSD [ ] Depression [ ] Other: Other: PHYSICAL EXAM: Vitals: Temp:98.3 F [36.8 C] (12/05/2024 12:38) BP:139/83 (12/05/2024 12:42) Pulse: 76 (12/05/2024 12:42) Resp: 20 (12/05/2024 12:42) Weight: 307.2 lb [139.34 kg] (12/05/2024 12:38) Height:73 in [185.4 cm] (12/05/2024 12:38) inches Pulse ox: 96% (12/05/2024 12:42)% [place] declines exam: [ ] Yes [ X ] No General: [ X ] Alert, NAD, appears stated age. [ X ] No rashes or skin conditions noted on exam. [ X ] No cachexia or other abnormal weight/constitutional findings. [ ] Abnormal Findings: [ ] Not examined HEENT: [ X ] Normocephalic, nose, throat, TMs, and ear canals are clear. [ X ] No lymphadenopathy, no thyromegaly. [ X ] No JVD. [ x ] Abnormal Findings: endentulous since age 11 [ ] Not examined Cardiovascular: [ ] Reg rate and rhythm [ X ] No murmur, no rub, no gallop. [ X ] No peripheral edema [ X ] Peripheral radial pulses are normal. [ x ] Abnormal Findings:irreg rhythm afib [ ] Not examined Pulmonary: [ X ] Lung weaver are clear; No wheezes or rubs. [ X ] Aeration is normal. [ ] Abnormal Findings: [ ] Not examined Abdomen: [ X ] Nontender [ X ] No masses, no organomegaly [ X ] No ascites or distension [ x ] Abnormal Findings: large midline scar well healed [ ] Not examined Extremities: [ X ] No edema [ X ] No clubbing or cyanosis. [ x ] Abnormal Findings: decreased sensation lower legsw; very weak quad strength; walks with cane [ ] Not examined Neurologic: [ X ] No focal motor weakness [ ] No sensory loss or change. [ ] Gait is normal and unassisted. [ X ] [id number] is normal [ X ] No nystagmus [ X ] Normal Romberg [ X ] Normal YAKELIN [ ] No tremor [ ] Abnormal Findings: [ ] Not examined : Deferred to the [facility]'s own provider(s) Other: ===== [ ] Results of EKG, CXR, and all labs were reviewed with the [facility]. [ X ] All questions answered. No data available for: EKG CONSULT STL EKG CONSULTS PB EKG RESULTS MA No Impressions found No CBC EO data found No data available for: CREATININE UREA NITROGEN GLUCOSE SODIUM POTASSIUM CHLORIDE CARBON DIOXIDE CALCIUM PROTEIN ALBUMIN TOTAL BILIRUBIN ALKALINE PHOSPHATASE AST/SGOT ALT/SGPT EGFR (CKD-EPI 2020) VITAMIN D (25-HYDROXY) DO NOT USE TESTOSTERONE, TOTAL HGA1C B12 TSH No TSH (1YR) EO data found HEP C ANTIBODY 30D No data available for: HEP C Ab HCV Ab (STL) PSA PC STL No data available for: PROST. SPECIFIC AG.(PB-STL) No LIPID PANEL EO data found No data available for: PROTEIN ALBUMIN TOTAL BILIRUBIN ALKALINE PHOSPHATASE AST/SGOT ALT/SGPT GLOBULIN CONJ. BILIRUBIN A/G RATIO (PB-MA) No URINALYSIS EO data found ======= Assessment/Plan for administrative exam for [employer] Registry 1. Diagnosis: ICD-10 code 1. 2. 3. 4. 5. - instructed to go to [facility]/Regional office corporate representative to file a claim for illnesses that are presumed due to Agent Ludell exposure. 2.Has AO-related symptoms/complaints: (MAKE SURE DATE OF ONSET, DURATION, CURRENTLY PRESENT ARE INCLUDED WITHIN EXAM) Symptom: ICD-10 [ ] None (other than known dx) [ X ] Colon cancer, removed 18 inches of colon 2012 C18.9 [ X ] left kidney removed in 2012 for renal carcinoma. C64.9 [ X ] Atrial fibrillation started 2018, on Eliquis and Amiodaraone. I48.91 [ X ] Peripheral neuropathy of lower legs, started 2018. G62.9 [ X ] Hearing loss started 1965, has hearing aids, not wearing them H91.90 3.Lab, CXR, EKG [ X ] labs, cxr and ekg ordered [ ] All are normal [ ] Abnormal findings: I advised that the contact their medical provider to arrange for follow up on the abnormal findings and for routine medical care/follow up on known conditions. [ ] Copies of lab results given to the (ALEXA form signed). [ ] Copies of EKG results given to the (ALEXA form signed). [ ] Copies of CXR results given to the (ALEXA form signed). [ X ] ALEXA form signed [ ] Consent form signed 4. Consults: 1= No Consultation Needed (Consultation is ongoing or is not needed) 2= Records reviewed. Consultation is completed. 3= Consultation requested 4= Consultation recommended to PCM [ ] Dermatology 1 [ ] Pulmonology 1 [ ] Reproductive Health 1 [ ] Hematology/Oncology 1 [ ] Urology 1 [ ] Neurology 1 [ ] ENT 1 [ ] Other 1 [ ] Hepatitis C negative [ ] Hepatitis C positive [ X ] Hepatitis C Not done [ ] Additional Workup Other considerations: [ ] Cardiology [ ] Dentistry [ ] Endocrinology [ ] Gastroenterology [ ] Infectious Disease [ ] Nephrology [ ] Occupational medicine [ ] Orthopedic [ ] Rheumatology [ X ] No consults were ordered as part of today's registry exam Biopsy: No Type: The voiced understanding of instructions and agrees to follow up with his regular medical care provider for routine care and follow up on labs/test results. (An 'X' indicates the presence of the condition, unchecked indicates the absence of the condition.) Time spent with : [id number] (X) ALEXA signed at start of appt. (X) labs,ekg and cxr ordered, will obatin following appt. (X) no consult placed. (X) provided phone number for hearing test (X) quad strength weak, needs to do leg lifts multiple times per day to improved thigh strength. (X) weight loss was strongly advised. /gogo/ ASHLEY AGUILLON MSN SENIOR TERADATA DEVELOPER ANP-BC Nurse Practitioner Primary Care Signed: 12/05/2024 13:55 Receipt Acknowledged By: 12/05/2024 15:48 /gogo/ SARAH ANDRADE [employer] ASST 12/07/2024 10:03 /gogo/ LAUREN OCHOA ADVANCED FILM TESTS CHECKER ASHLEY AGUILLON [facility]
--- OUTSIDE RECORDS SUMMARY | 2024-12-26 13:43 | XMS_ITS | Encounter Summary ---
Author Organization [facility] Address [address] [place] [id number] Care Team Providers Care Senior Database Administrator Name Role Phone Aj Tejeda MD Primary Care Provider Encounter Details Date Type Department Care Team (Late st Contact Info) Description 12/26/2024 Results Follow-Up [facility] Cardiology at [address] [place] [address] Kobe Olivarez MD [address] [address] Social History Tobacco Use Types Packs/Day Years Used Date Smoking Tobacco: Former Cigarettes 0 1950 - 2010 Smokeless Tobacco: Never Alcohol Use Standard Drinks/Week [...] on file Legal Sex Male 11:32 PM FLUSH TESTER Gender Identity Male 04/01/2020 9:43 AM CDT Sexual Orientation Straight 11/07/2018 9: 10 PM CDT Occupation Industry Job Start Date Job End Date retired Not on file Not on file Not on file documented as of this encounter Plan of [...] on filedocumented in this encounter Care Teams Senior Database Administrator Relationship Specialty Start Date End Date Aj Tejeda MD [address] [address] [facility] [address] [place] [address] PCP - General 10/06/18 documented as of this encounter
--- OUTSIDE RECORDS SUMMARY | 2024-12-26 13:43 | XMS_ITS | Clinical Summary ---
Author Organization [facility] Address [address] [place] [address] Care Team Providers Care Merchandise Support Associate Name Role Phone Aj Tejeda MD Primary Care Provider [phone] Allergies Active Allergy Reactions Criticality Noted Date Comments Morphine Delirium Medium 12/18/2024 Medications albuterol sulfate HFA 90 mcg/actuation aerosol inhaler Take 2 Puffs by inhalation every 6 hours as needed for Shortness of Breath. Active amiodarone (CORDARONE) 100 mg Tablet Take 100 mg by mouth daily. Active cholecalciferol, vitamin D3, 5,000 unit Take 400 Units by mouth daily. Active cycloSPORINE (RESTASIS) 0.05 % emulsion 1 Drop 2 times daily. Active docusate sodium (COLACE) 100 mg capsule Take 100 mg by mouth 2 times daily as needed for Constipation. Active apixaban (Eliquis) 5 mg tablet Take 5 mg by mouth 2 times daily. Active fenofibrate nanocrystallized (TRICOR) 48 mg tablet Take 48 mg by mouth daily. Active furosemide (LASIX) 20 mg tablet Take 20 mg by mouth 1 time daily as needed. Active gabapentin (NEURONTIN) 100 mg capsule Take 100 mg by mouth 2 times daily. Active melatonin 5 mg Tablet Take 10 mg by mouth nightly as needed. Active potassium CHLORIDE (KLOR-CON) 10 mEq Extended Release tablet Take 10 mEq by mouth. Active tiotropium-olodatero L (Stiolto Respimat) 2.5-2.5 mcg/actuation metered inhaler Take 2 Puffs by inhalation daily. Active Active Problems No known active problems Encounters Date Type Department Care Team Description 12/18/2024 2:00 PM CDT Office Visit [facility] - [address] [address] [facility] [address] [place] [address] Abhilash Smith MD Persistent atrial fibrillation (CMS/HCC) (Primary Dx); Anticoagulation management encounter; Right bundle branch block; Bradycardia 11/15/2024 External Device Data STL ABSTRACTION Provider, Abstract 11/08/2024 External Device Data STL ABSTRACTION Provider, Abstract 11/07/2024 External Device Data STL ABSTRACTION Provider, Abstract 11/06/2024 External Device Data STL ABSTRACTION Provider, Abstract 11/04/2024 External Device Data STL ABSTRACTION Provider, Abstract 11/04/2024 External Device Data STL ABSTRACTION Provider, Abstract 11/02/2024 12:50 PM BATTERY CONTAINER TESTER ALUMINUM Ancillary Procedure 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; Pain 11/02/2024 12:35 PM BATTERY CONTAINER TESTER ALUMINUM Ancillary Procedure [address] [address] Hong Schwartz MD 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; Pain from Last 3 Months Family History Medical History Relation Name Comments Prostate Cancer Father Relation Name Status Comments Father Mother Social History Tobacco Use Types Packs/Day Years Used Date Smoking Tobacco: Never Assessed Sex and Gender Information Value Date Recorded Sex Assigned at Not on file Legal Sex Male 12:34 PM BATTERY CONTAINER TESTER ALUMINUM Gender Identity Not on file Sexual Orientation Not on file Last Filed Vital Signs Vital Sign Reading Time Taken Comments Blood Pressure 124/80 12/18/2024 2:13 PM CDT Pulse 84 12/18/2024 2:13 PM CDT Temperature - - Respiratory Rate - - Oxygen Saturation - - Inhaled Oxygen Concentration - - Weight 137 kg (302 lb) 12/18/2024 2:13 PM CDT Height 185.4 cm (6' 1 ) 12/18/2024 2:13 PM CDT Body Mass Index 39.84 12/18/2024 2:13 PM CDT Plan of Treatment Upcoming Encounters Date Type Department Care Team (Latest Contact Info) Description 01/24/2025 12:14 PM CDT Hospital Encounter [facility] Cardiac Historiographer [address] [place] [address] [place] [address] [facility] [address] [place] [address] Symptomatic bradycardia 01/24/2025 12:14 PM CDT - 01/24/2025 2:15 PM CDT Surgery [facility] Cardiac Historiographer [address] [place] [address] [place] [id number] [address] Pacemaker insertion Health Maintenance Due Date Last Done Comments ZOSTER VACCINE (2 of 3) 07/18/2013 05/23/2013 PNEUMOCOCCAL VACCINE 50+ YEA RS (2 of 2 - PPSV23) 04/15/2016 04/15/2015, 04/06/2013 RSV VACCINE (60+ or ) (1 - 1-dose 75+ series) 2018 DTAP/TDAP/TD VACCINES (2 - Td or Tdap) 10/28/2021, 05/08/2011 INFLUENZA VACCINE (#1) 2024 Procedures Procedure Name Priority Date/Time Associated Diagnosis Comments XR LUMBAR SPINE 2 OR 3 VW Routine 11/02/2024 1:22 PM BATTERY CONTAINER TESTER ALUMINUM 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 Pain XR KNEE 1 OR 2 VW LEFT Routine 11/02/2024 1:22 PM BATTERY CONTAINER TESTER ALUMINUM 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 Pain XR THORACIC SPINE 2 VW Routine 11/02/2024 1:21 PM BATTERY CONTAINER TESTER ALUMINUM 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 Lumbar spondylosis. 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 FINDINGS: Five nonrib-bearing lumbar vertebrae are seen. There is a moderate curvature of the lumbar spine. Bony alignment is maintained and shows no subluxation. No anterior wedge compression deformities or fractures are evident. Degenerative disc disease and facet arthropathy noted throughout the lumbar spine. Lumbar spine straightening may be positional or secondary to muscle strain. No pars defects are noted. Bilateral hip prostheses are partially imaged. A stimulator pack is noted in the left posterior soft tissues. 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 FINDINGS: Five nonrib-bearing lumbar vertebrae are seen. There is a moderate curvature of the lumbar spine. Bony alignment is maintained and shows no subluxation. No anterior wedge compression deformities or fractures are evident. Degenerative disc disease and facet arthropathy noted throughout the lumbar spine. Lumbar spine straightening may be positional or secondary to muscle strain. No pars defects are noted. Bilateral hip prostheses are partially imaged. A stimulator pack is noted in the left posterior soft tissues. IMPRESSION: 1. Lumbar spondylosis. us Hong Schwartz MD DIAGNOSTIC IMAGING ORDERABLES F inal Result * XR KNEE 1 OR 2 VW LEFT (11/02/2024 1:22 PM BATTERY CONTAINER TESTER ALUMINUM) Anatomical Region Laterality Modality Lower Extremity Computed Radiogr aphy 11/02/2024 1:22 PM BATTERY CONTAINER TESTER ALUMINUM Addenda Addendum by Micky Robison MD on 11/06/2024 8:04 AM CDT There is an error in voice recognition. The corrected impression is as follows: IMPRESSION: 1. 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 Impressions 11/02/2024 4:17 PM BATTERY CONTAINER TESTER ALUMINUM IMPRESSION: 1. 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 FINDINGS: No acute fracture or dislocation is seen. No lytic or blastic lesions are noted. Tricompartment arthritis is manifested by narrowing of the medial knee joint space and patellar enthesopathy. A small joint effusion is present. A fabella is present. 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 FINDINGS: No acute fracture or dislocation is seen. No lytic or blastic lesions are noted. Tricompartment arthritis is manifested by narrowing of the medial knee joint space and patellar enthesopathy. A small joint effusion is present. A fabella is present. IMPRESSION: 1. 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 us Hong Schwartz MD DIAGNOSTIC IMAGING ORDERABLES E dited Result - Final * XR THORACIC SPINE 2 VW (11/02/2024 1:21 PM BATTERY CONTAINER TESTER ALUMINUM) Anatomical Region Laterality Modality Spine Computed Radiogr aphy 11/02/2024 1:22 PM BATTERY CONTAINER TESTER ALUMINUM Impressions 11/02/2024 4:16 PM BATTERY CONTAINER TESTER ALUMINUM IMPRESSION: 1. No acute fracture or subluxation. 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 FINDINGS: There are 12 rib-bearing thoracic vertebrae. Thoracic bony alignment is maintained and shows no subluxation. No anterior wedge compression deformities or fractures are evident in the thoracic region. Thoracic vertebral body heights and intervertebral disc spaces are maintained. There are stimulator leads are noted covering portions of T7-T11. Cervical spondylosis is incidentally noted. 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 FINDINGS: There are 12 rib-bearing thoracic vertebrae. Thoracic bony alignment is maintained and shows no subluxation. No anterior wedge compression deformities or fractures are evident in the thoracic region. Thoracic vertebral body heights and intervertebral disc spaces are maintained. There are stimulator leads are noted covering portions of T7-T11. Cervical spondylosis is incidentally noted. IMPRESSION: 1. No acute fracture or subluxation. Hong Schwartz MD DIAGNOSTIC IMAGING ORDERABLES F inal Result * XR KNEE 1 OR 2 VW RIGHT (11/02/2024 1:20 PM BATTERY CONTAINER TESTER ALUMINUM) Anatomical Region Laterality Modality Lower Extremity Computed Radiogr aphy 11/02/2024 1:21 PM BATTERY CONTAINER TESTER ALUMINUM Impressions 11/02/2024 4:15 PM BATTERY CONTAINER TESTER ALUMINUM IMPRESSION: 1. Mild osteoarthritis. 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 FINDINGS: No acute fracture or dislocation is seen. No lytic or blastic lesions are noted. Degenerative changes manifest by mild narrowing of the medial knee joint space and patellar enthesopathy. No joint effusion is present. A small fabella is seen. 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 FINDINGS: No acute fracture or dislocation is seen. No lytic or blastic lesions are noted. Degenerative changes manifest by mild narrowing of the medial knee joint space and patellar enthesopathy. No joint effusion is present. A small fabella is seen. IMPRESSION: 1. Mild osteoarthritis. us Hong Schwartz MD DIAGNOSTIC IMAGING ORDERABLES F inal Result from Last 3 Months Insurance [facility]1983 GROUP MEDICARE PART A AND B [employer] Care Teams Merchandise Support Associate Relationship Specialty Start Date End Date Aj Tejeda MD [address] [facility] [address] [place] [id number] PCP - General Family Practice 12/18/24
[2024-12-26 13:48] LABS: Hematocrit 43.7 % (42.0-52.0); Hemoglobin 12.9 g/dL (14.0-18.0); Mean Corpuscular HGB Conc 29.5 g/dl (32-36); Mean Corpuscular Hemoglobin 26.3 pg (26-34); Mean Corpuscular Volume 89.2 fl (80-100); Mean Platelet Volume 9.6 fl (7.4-10.4); Platelet Count Result 385 k/mm3 (150-375); Red Cell Distribution Width 21.5 % (11.5-14.5)
[2024-12-26 13:51] LABS: Percent Iron Saturation 10 % (20-50)
[2024-12-26 13:52] LABS: LDL Cholesterol Direct 113 mg/dL
[2024-12-26 14:45] LABS: Add Urine Microscopic? NO; Appearance Urine Clear (Clear); Bilirubin Urine Negative (Negative); Blood Urine Negative (Negative); Color Urine Yellow (Yellow); Glucose Urine UA Negative (Negative); Ketones Urine Negative (Negative); Leukocyte Esterase Ur Negative LEU/UL (Negative); Nitrate Urine Negative (Negative); Protein Urine Negative (Negative); Urobilinogen Urine 0.2 mg/dL (<2.0)
== END 2024-12-26 12:37 | disposition home or self-care (01) ==
PROVIDERS: PCP Family Medicine; Visit Provider Physician Assistant Medical
DX: R73.01 Impaired fasting glucose (principal); I10 Essential (primary) hypertension; N18.30 Chronic kidney disease, stage 3 unspecified; R53.83 Other fatigue; D64.9 Anemia, unspecified
CPT/HCPCS: 36415; 80053; 80061; 81003; 82728; 83036; 83540; 83550; 84443; 85027

== ENCOUNTER 2025-04-16 12:06 | Outpatient (CLI) | payer MEDICARE, OTHER, SELFPAY ==
--- OUTSIDE RECORDS SUMMARY | 2025-04-16 13:03 | XMS_ITS | Continuity of Care Document ---
Author Name DOD-IN Organization DOD-IN Care Team Providers Care Adoption Worker Name Role Phone [facility] Unavailable Unavailable Problems Combined list of problems from Department of Defense and Veterans Affairs facilities. It does not include entries that were removed or entered in error. Problem Status Onset Date Problem Type Date of Resolution Comments Source flatus Active Condition DoD ASTIGMATISM - REGULAR Active Condition DoD REFRACTIVE [...] days. DoD Laboratory Studies Active Condition DoD NORMAL ROUTINE HISTORY AND PHYSICAL ADULT (18-65) Active Condition wnl exam, discussed lifestyle changes, diet, exercise, increase water intake and f/u plan for three month eval. Pt understands. DoD HEARING LOSS Active Condition med tri al - due to pruritis, pt to have hearing eval and [facility] if [facility] are indicated. 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 Consult for General Surgery entered. [facility] visit for: laboratory Active Condition DoD ARTHRITIS Active Condition DoD Patient Education Active Condition Gisel scussed the importance of getting completely tobacco-free as soon as possible. Reminded him that he only has one more prescription of Chantix coming to him. Discussed avoiding drinking at the [employer] for some time. His term off office ends Jan. DoD NICOTINE DEPENDENCE Active Condition Refill for Chantix. 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 [facility] Coronary artery disease Active Condition [facility] Edema Active Condition [facility] Elevated blood-pressure reading without diagnosis of hypertension (SNOMED CT 182282284) Active Condition [facility] Exposure to potentially hazardous substance (SCT [id number]) Active Condition Dec 06 Entered By: MARELY GAYTAN Comment: Entered automatically through IRENE Problem List documentation program [facility] Family history of cancer of colon Active Condition [facility] Family history of prostate cancer Active Condition [facility] Hyperlipidemia Active Condition [facility] Neuropathy Active Condition [facility] 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 [facility] personal history of colon cancer Active Condition [facility] personal history of renal cancer Active Condition [facility] Renal cancer Active Condition [facility] Diagnosis: ICD-10-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 [facility] Diagnosis: ICD-10-CM Z02.9 Encounter for administrative examinations, unspecified Active Diagnosis [facility] Diagnosis: ICD-10-CM Z77.29 Contact with and exposure to other hazardous substances Active Diagnosis [facility] Diagnosis: ICD-10-CM E78.5 Hyperlipidemia, unspecified Active Diagnosis [facility] Medications Combined list of outpatient medications from Department of Defense and [facility] Affairs facilities.Medications provided include 1) outpatient medications from the last 15 months, and 2) patient-reported medications. Medication Details Route Status Patient Instructions Prescription Expires Prescription Number Last Dispense Date Ordering Provider Order Date Order Qty Source ALBUTEROL (CFC-F) INHL,ORAL INHALE BY ORAL INHALATI ON FOUR TIMES A DAY RESPIR ATORY (INHAL ATION) ACTIVE Vero JONES 2024 [facility] ESPERANZA Garcia AMIODARONE HCL (PACERONE) 200MG TAB TAKE ONE-HALF TABLET BY MOUTH ONCE A DAY ORAL ACTIVE LECTURE,Vero Glaser 2024 [facility] ESPERANZA Garcia APIXABAN 5MG TAB TAKE ONE TABLET BY MOUTH TWICE A DAY ORAL ACTIVE LECTURE,Vero Glaser 2024 [facility] ESPERANZA Garcia ASCORBIC ACID 500MG TAB TAKE ONE TABLET BY MOUTH ONCE A DAY ORAL ACTIVE Nadine GREENE 2012 [facility] CHOLECALCIF KELLY (LOW DOSE VIT D) - (OTC) TAB TAKE BY MOUTH ONCE A DAY ORAL ACTIVE LECTURE,Vero Glaser 2024 [facility] ESPERANZA Garcia CYCLOSPORIN E (cyclospori ne), 0.05 %, DROPERETTE, OPHTHALMIC, APOTEX BECKY, 60 ea. VIAL Cancele d [id number] : 2023 0 Pharmac y Data Transac tion Service Facilit y ELIQUIS (APIXABAN), 5 MG, TABLET, ORAL, [facility] , 60 ea. BOTTLE Active [id number] 2023 90 Pharmac y Data Transac tion Service Facilit y FENOFIBRATE 48MG TAB TAKE ONE TABLET BY MOUTH ONCE A DAY ORAL ACTIVE LECTURE,Vero Glaser 2024 [facility] ESPERANZA Garcia FINASTERIDE (FINASTERID E), 5 MG, TABLET, ORAL, [facility], 30 ea. BOTTLE Active [id number] 2023 90 Pharmac y Data Transac tion Service Facilit y FISH OIL 1000MG (500MG DHA/EPA) CAP,ORAL TAKE 1 CAPSULE BY MOUTH TWICE A DAY ORAL ACTIVE Nadine GREENE 2012 [facility] FUROSEMIDE 20MG TAB TAKE ONE TABLET BY MOUTH EVERY MORNING ORAL ACTIVE LECTURE,Vero Glaser 2024 [facility] ESPERANZA Garcia GABAPENTIN (gabapentin ), 100 MG, CAPSULE, ORAL, [facility], 500 ea. BOTTLE Active [id number] 2023 180 Pharmac y Data Transac tion Service Facilit y GABAPENTIN 300MG CAP TAKE 2 CAPSULES BY MOUTH AT BEDTIME ORAL ACTIVE KERRI CIFUENTESA 2013 [facility] OLODATEROL 2.5MCG/TIOT ROPIUM 2.5MCG/ACTU AT [facility],ORAL,6 0D,4GM INHALE 2 PUFFS BY ORAL INHALATI ON ONCE A DAY RESPIR ATORY (INHAL ATION) ACTIVE Vero JONES 2024 [facility] DIVNAHID Garcia PANTOPRAZOL E SODIUM (pantoprazo le sodium), 40 MG, TABLET DRCELIA, [employer] 1000 ea. BOTTLE Active [id number] 2023 90 Pharmac y Data Transac tion Service Facilit y POTASSIUM CHLORIDE 20MEQ TAB,SA (DISPERSIBL E) TAKE ONE-HALF TABLET BY MOUTH ONCE A DAY ORAL ACTIVE Vero JONES 2024 [facility] DIVMARKOIO N SULFAMETHOX AZOLE-TRIME THOPRIM (SULFAMETHO XAZOLE/TRIM ETHOPRIM), 800-160MG, TABLET, ORAL, [employer], 500 ea. BOTTLE Active [id number] 2023 14 Pharmac y Data Transac tion Service Facilit y Allergies, Adverse Reactions, Alerts Combined list of allergies from Department of Defense and Veterans Affairs facilities. It does not include entries that were removed or entered in error. Substance Category Reaction Severity Reaction type Status Date Reported Comments Source ANALGESIC(O PIOD) DRG [facility] FOR ALLERGIES Drug allergy (disorder) Delirium active 3 [facility] MORPHINE Propensity to adverse reactions to drug (finding) Delirium active 3 [facility] Immunizations Combined list of available immunizations from the Department of Defense and Veterans Affairs facilities. Immunization Series Date Given Administered By Site Reaction Lot Number CVX Code Drug [employer] Coordinator Status Comments Source COVID-19, mRNA, LNP-S, PF, 100 mcg or 50 mcg dose 2021 LUIS MIGUEL, [employer] (MOD) Not Given COVID-19, mRNA, LNP-S, PF, 100 mcg or 50 mcg dose [facility] influenza, high-dose, quadrivalent 2021 LUIS MIGUEL, () Not Given influenza , high-dose , quadrival ent DoD COVID-19, mRNA, LNP-S, PF, 100 mcg or 50 mcg dose 2020 CHELE, () Not Given COVID-19, mRNA, LNP-S, PF, 100 mcg or 50 mcg dose DoD COVID-19, mRNA, LNP-S, PF, 100 mcg or 50 mcg dose 2020 CHELE [facility] [employer] (MOD) Not Given COVID-19, mRNA, LNP-S, PF, 100 mcg or 50 mcg dose DoD PNEUMOCOCCAL CONJUGATE PCV 13 2014 133 complet ed [facility] INFLUENZA, UNSPECIFIED FORMULATION 2013 88 complet ed [facility] INFLUENZA, UNSPECIFIED FORMULATION 2012 88 complet ed [facility] INFLUENZA, UNSPECIFIED FORMULATION 2012 88 complet ed [facility] ZOSTER LIVE 2012 121 complet ed [facility] PNEUMOCOCCAL, UNSPECIFIED FORMULATION 2012 109 complet ed [facility] TDAP 2011 115 complet ed [facility] Results Combined list of recent [...] Dec 04, 2024 08:48 AM Reporting Lab: [facility] [address] [facility] [address] Performing Lab: [facility] [address] [facility] [address] [facility] URINALYS IS (STL-PB) BILIRUBIN. TOTAL [PRESENCE] IN URINE BY TEST STRIP Negative mg/dL 12/05 Specimen Type: URINE No comment entered. Ordering Provider: MAUREEN AGUILLON Report Released Date/Time: Dec 04, 2024 08:48 AM Reporting Lab: [place] [address] [address] [facility] [address] Performing Lab: [place] [address] [facility] [address] [facility] URINALYS IS (STL-PB) PH OF URINE BY TEST STRIP 6.0 5.0 - 8.0 12/05 Specimen Type: URINE No comment entered. Ordering Provider: MAUREEN AGUILLON Report Released Date/Time: Dec 04, 2024 08:48 AM Reporting Lab: [place] [address] [place] [phone] Performing Lab: [place] [address] [place] [phone] URINALYS IS (STL-PB) APPEARANCE OF URINE Clear 12/05 Specimen Type: URINE No comment entered. Ordering Provider: MAUREEN AGUILLON Report Released Date/Time: Dec 04, 2024 08:48 AM Reporting Lab: [place] [address] [facility] [address] Performing Lab: [place] [address] [facility] [address] [facility] URINALYS IS (STL-PB) NITRITE [PRESENCE] IN URINE BY TEST STRIP Negative mg/dL 12/05 Specimen Type: URINE No comment entered. Ordering Provider: MAUREEN AGUILLON Report Released Date/Time: Dec 04, 2024 08:48 AM Reporting Lab: [place] [address] [facility] [address] Performing Lab: [place] [address] [place] [phone] URINALYS IS (STL-PB) GLUCOSE [MASS/VOLU ME] IN URINE BY TEST STRIP Normalmg /dL 12/05 Specimen Type: URINE No comment entered. Ordering Provider: MAUREEN AGUILLON Report Released Date/Time: Dec 04, 2024 08:48 AM Reporting Lab: [facility] [address] [facility] [address] Performing Lab: [facility] [address] [facility] [address] [facility] URINALYS IS (STL-PB) PROTEIN [MASS/VOLU ME] IN URINE BY TEST STRIP Negative mg/dL 12/05 Specimen Type: URINE No comment entered. Ordering Provider: MAUREEN AGUILLON Report Released Date/Time: Dec 04, 2024 08:48 AM Reporting Lab: [place] [address] [address] [facility] [address] Performing Lab: [place] [address] [facility] [address] [facility] URINALYS IS (STL-PB) URN.UROBIL INOGEN Normalmg /dL 12/05 Specimen Type: URINE No comment entered. Ordering Provider: MAUREEN AGUILLON Report Released Date/Time: Dec 04, 2024 08:48 AM Reporting Lab: [place] [address] [facility] [address] Performing Lab: [place] [address] [facility] [address] [facility] URINALYS IS (STL-PB) HEMOGLOBIN [MASS/VOLU ME] IN URINE BY TEST STRIP Negative mg/dL 12/05 Specimen Type: URINE No comment entered. Ordering Provider: MAUREEN AGUILLON Report Released Date/Time: Dec 04, 2024 08:48 AM Reporting Lab: [place] [address] [address] [facility] [address] Performing Lab: [address] [address] [facility] URINALYS IS (STL-PB) KETONES [MASS/VOLU ME] IN URINE BY TEST STRIP Negative mg/dL 12/05 Specimen Type: URINE No comment entered. Ordering Provider: MAUREEN AGUILLON Report Released Date/Time: Dec 04, 2024 08:48 AM Reporting Lab: [place] [address] [place] [phone] Performing Lab: [place] [address] [place] [phone] [facility] URINALYS IS (STL-PB) URN.LEUK.E ST. Negative mg/dL 12/05 Specimen Type: URINE No comment entered. Ordering Provider: MAUREEN AGUILLON Report Released Date/Time: Dec 04, 2024 08:48 AM Reporting Lab: [place] [address] [place] [phone] Performing Lab: [place] [address] URINALYS IS (STL-PB) SPECIFIC GRAVITY OF URINE 1.012 12/05 Specimen Type: URINE No comment entered. Ordering Provider: MAUREEN AGUILLON Report Released Date/Time: Dec 04, 2024 08:48 AM Reporting Lab: [place] [address] [place] [phone] Performing Lab: [place] [phone] CBC LEUKOCYTES [#/VOLUME] IN BLOOD BY AUTOMATED COUNT 11.5 10*3/uL 3.6 - 11.2 12/05 H Specimen Type: BLOOD No comment entered. Ordering Provider: MAUREEN AGUILLON Report Released Date/Time: Dec 04, 2024 08:48 AM Reporting Lab: [place] [address] [place] [phone] Performing Lab: [place] [phone] [facility] CBC ERYTHROCYT ES [#/VOLUME] IN BLOOD BY AUTOMATED COUNT 5.55 10*6/uL 4.10 - 5.70 12/05 Specimen Type: BLOOD No comment entered. Ordering Provider: MAUREEN AGUILLON Report Released Date/Time: Dec 04, 2024 08:48 AM Reporting Lab: [place] [address] [facility] [address] Performing Lab: [address] [address] [facility] CBC HEMOGLOBIN [MASS/VOLU ME] IN BLOOD 13.4 g/dL 13.1 - 16.8 12/05 Specimen Type: BLOOD No comment entered. Ordering Provider: MAUREEN AGUILLON Report Released Date/Time: Dec 04, 2024 08:48 AM Reporting Lab: [place] [address] [facility] [address] Performing Lab: [place] [address] [facility] [phone] CBC HEMATOCRIT [VOLUME FRACTION] OF BLOOD 46.1 38.2 - 48.4 12/05 Specimen Type: BLOOD No comment entered. Ordering Provider: MAUREEN AGUILLON Report Released Date/Time: Dec 04, 2024 08:48 AM Reporting Lab: [place] [address] [facility] [address] Performing Lab: [address] [address] [facility] CBC MCV [ENTITIC VOLUME] BY AUTOMATED COUNT 83.1 fL 80.0 - 100.0 12/05 Specimen Type: BLOOD No comment entered. Ordering Provider: MAUREEN AGUILLON Report Released Date/Time: Dec 04, 2024 08:48 AM Reporting Lab: [place] [address] [facility] [address] Performing Lab: [address] [address] [facility] CBC MCH [ENTITIC MASS] BY AUTOMATED COUNT 24.1 pg 27.0 - 34.0 12/05 L Specimen Type: BLOOD No comment entered. Ordering Provider: MAUREEN AGUILLON Report Released Date/Time: Dec 04, 2024 08:48 AM Reporting Lab: [place] [address] [facility] [address] Performing Lab: [address] [address] [facility] CBC MCHC [MASS/VOLU ME] BY AUTOMATED COUNT 29.1 g/dL 33.0 - 36.0 12/05 L Specimen Type: BLOOD No comment entered. Ordering Provider: MAUREEN AGUILLON Report Released Date/Time: Dec 04, 2024 08:48 AM Reporting Lab: [place] [address] [facility] [address] Performing Lab: [address] [address] [facility] CBC PLATELETS [#/VOLUME] IN BLOOD BY AUTOMATED COUNT 413 10*3/uL 150 - 400 12/05 H Specimen Type: BLOOD No comment entered. Ordering Provider: MAUREEN AGUILLON Report Released Date/Time: Dec 04, 2024 08:48 AM Reporting Lab: [place] [address] [facility] [address] Performing Lab: [place] [address] [facility] [address] [facility] CBC PLATELET MEAN VOLUME [ENTITIC VOLUME] IN BLOOD BY AUTOMATED COUNT 9.2 fL 7.5 - 11.2 12/05 Specimen Type: BLOOD No comment entered. Ordering Provider: MAUREEN AGUILLON Report Released Date/Time: Dec 04, 2024 08:48 AM Reporting Lab: [place] [address] [facility] [address] Performing Lab: [address] [address] [facility] CBC ERYTHROCYT E DISTRIBUTI ON WIDTH [RATIO] BY AUTOMATED COUNT 20.1 11.8 - 15.1 12/05 H Specimen Type: BLOOD No comment entered. Ordering Provider: MAUREEN AGUILLON Report Released Date/Time: Dec 04, 2024 08:48 AM Reporting Lab: [facility] [address] [facility] [address] Performing Lab: [facility] [address] [facility] [address] [facility] CBC LYMPHOCYTE S/100 LEUKOCYTES IN BLOOD BY AUTOMATED COUNT 23 12/05 Specimen Type: BLOOD No comment entered. Ordering Provider: MAUREEN AGUILLON Report Released Date/Time: Dec 04, 2024 08:48 AM Reporting Lab: [facility] [address] [facility] [address] Performing Lab: [facility] [address] [facility] [address] [facility] CBC MONOCYTES/ 100 LEUKOCYTES IN BLOOD BY AUTOMATED COUNT 8 12/05 Specimen Type: BLOOD No comment entered. Ordering Provider: MAUREEN AGUILLON Report Released Date/Time: Dec 04, 2024 08:48 AM Reporting Lab: [facility] [address] [facility] [address] Performing Lab: [facility] [address] [facility] [address] [facility] CBC NEUTROPHIL S/100 LEUKOCYTES IN BLOOD BY AUTOMATED COUNT 67 12/05 Specimen Type: BLOOD No comment entered. Ordering Provider: MAUREEN AGUILLON Report Released Date/Time: Dec 04, 2024 08:48 AM Reporting Lab: [facility] [address] [facility] [address] Performing Lab: [facility] [address] [facility] [address] [facility] CBC EOSINOPHIL S/100 LEUKOCYTES IN BLOOD BY AUTOMATED COUNT 1 12/05 Specimen Type: BLOOD No comment entered. Ordering Provider: MAUREEN AGUILLON Report Released Date/Time: Dec 04, 2024 08:48 AM Reporting Lab: [facility] [address] [facility] [address] Performing Lab: [facility] [facility] [address] [facility] CBC BASOPHILS/ 100 LEUKOCYTES IN BLOOD BY AUTOMATED COUNT 1 12/05 Specimen Type: BLOOD No comment entered. Ordering Provider: MAUREEN AGUILLON Report Released Date/Time: Dec 04, 2024 08:48 AM Reporting Lab: [place] [address] [facility] [address] Performing Lab: [place] [address] [facility] [address] [facility] CBC LYMPHOCYTE S [#/VOLUME] IN BLOOD BY AUTOMATED COUNT 2.62 10*3/uL 0.77 - 4.50 12/05 Specimen Type: BLOOD No comment entered. Ordering Provider: MAUREEN AGUILLON Report Released Date/Time: Dec 04, 2024 08:48 AM Reporting Lab: [address] [address] Performing Lab: [place] [address] [facility] [address] [facility] CBC MONOCYTES [#/VOLUME] IN BLOOD BY AUTOMATED COUNT 0.87 10*3/uL 0.19 - 0.80 12/05 H Specimen Type: BLOOD No comment entered. Ordering Provider: MAUREEN AGUILLON Report Released Date/Time: Dec 04, 2024 08:48 AM Reporting Lab: [address] [address] Performing Lab: [place] [address] [facility] [address] [facility] CBC NEUTROPHIL S [#/VOLUME] IN BLOOD BY AUTOMATED COUNT 7.70 10*3/uL 2.10 - 8.00 12/05 Specimen Type: BLOOD No comment entered. Ordering Provider: MAUREEN AGUILLON Report Released Date/Time: Dec 04, 2024 08:48 AM Reporting Lab: [address] [address] Performing Lab: [address] [place] [address] [facility] CBC EOSINOPHIL S [#/VOLUME] IN BLOOD BY AUTOMATED COUNT 0.12 10*3/uL 0.00 - 0.60 12/05 Specimen Type: BLOOD No comment entered. Ordering Provider: MAUREEN AGUILLON Report Released Date/Time: Dec 04, 2024 08:48 AM Reporting Lab: [place] [phone] Performing Lab: [place] [phone] [facility] CBC BASOPHILS [#/VOLUME] IN BLOOD BY AUTOMATED COUNT 0.09 10*3/uL 0.00 - 0.20 12/05 Specimen Type: BLOOD No comment entered. Ordering Provider: MAUREEN AGUILLON Report Released Date/Time: Dec 04, 2024 08:48 AM Reporting Lab: [place] [phone] Performing Lab: [place] [phone] [facility] COMPREHE NSIVE METABOLI C PANEL CREATININE [MASS/VOLU ME] IN SERUM OR PLASMA 1.76 mg/dL 0.7 - 1.3 12/05 H Specimen Type: PLASMA Comment: LDL calculation invalid when Triglycerid e exceeds 250 mg/dl No hemolysis noted. Ordering Provider: MAUREEN AGUILLON Report Released Date/Time: Dec 04, 2024 08:48 AM Reporting Lab: [place] [phone] Performing Lab: [place] [phone] [place] [address] COMPREHE NSIVE METABOLI C PANEL UREA NITROGEN [MASS/VOLU ME] IN SERUM OR PLASMA 21.5 mg/dL 9.0 - 25.0 12/05 Specimen Type: PLASMA Comment: LDL calculation invalid when Triglycerid e exceeds 250 mg/dl No hemolysis noted. Ordering Provider: MAUREEN AGUILLON Report Released Date/Time: Dec 04, 2024 08:48 AM Reporting Lab: [facility] [address] [facility] [address] Performing Lab: [facility] [address] [facility] [address] [facility] COMPREHE NSIVE METABOLI C PANEL GLUCOSE [MASS/VOLU ME] IN SERUM OR PLASMA 96 mg/dL 72 - 99 12/05 Specimen Type: PLASMA Comment: LDL calculation invalid when Triglycerid e exceeds 250 mg/dl No hemolysis noted. Ordering Provider: MAUREEN AGUILLON Report Released Date/Time: Dec 04, 2024 08:48 AM Reporting Lab: [facility] [address] [facility] [address] Performing Lab: [facility] [address] [facility] [address] [facility] COMPREHE NSIVE METABOLI C PANEL SODIUM [MOLES/VOL UME] IN SERUM OR PLASMA 138 meq/L 136 - 145 12/05 Specimen Type: PLASMA Comment: LDL calculation invalid when Triglycerid e exceeds 250 mg/dl No hemolysis noted. Ordering Provider: MAUREEN AGUILLON Report Released Date/Time: Dec 04, 2024 08:48 AM Reporting Lab: [facility] [address] [facility] [address] Performing Lab: [facility] [address] [facility] [address] [facility] COMPREHE NSIVE METABOLI C PANEL POTASSIUM [MOLES/VOL UME] IN SERUM OR PLASMA 4.5 meq/L 3.5 - 5 12/05 Specimen Type: PLASMA Comment: LDL calculation invalid when Triglycerid e exceeds 250 mg/dl No hemolysis noted. Ordering Provider: MAUREEN AGUILLON Report Released Date/Time: Dec 04, 2024 08:48 AM Reporting Lab: [facility] [address] [facility] [address] Performing Lab: [facility] [address] [facility] [address] [facility] COMPREHE NSIVE METABOLI C PANEL CHLORIDE [MOLES/VOL UME] IN SERUM OR PLASMA 103 meq/L 98 - 107 12/05 Specimen Type: PLASMA Comment: LDL calculation invalid when Triglycerid e exceeds 250 mg/dl No hemolysis noted. Ordering Provider: MAUREEN AGUILLON Report Released Date/Time: Dec 04, 2024 08:48 AM Reporting Lab: [place] [address] [facility] [address] Performing Lab: [facility] [address] [facility] [address] [place] [address] COMPREHE NSIVE METABOLI C PANEL CARBON DIOXIDE, TOTAL [MOLES/VOL UME] IN SERUM OR PLASMA 29 meq/L 22 - 31 12/05 Specimen Type: PLASMA Comment: LDL calculation invalid when Triglycerid e exceeds 250 mg/dl No hemolysis noted. Ordering Provider: MAUREEN AGUILLON Report Released Date/Time: Dec 04, 2024 08:48 AM Reporting Lab: [facility] [address] [facility] [address] Performing Lab: [place] [address] [facility] [address] [place] [address] COMPREHE NSIVE METABOLI C PANEL CALCIUM [MASS/VOLU ME] IN SERUM OR PLASMA 10.1 mg/dL 8.4 - 10.4 12/05 Specimen Type: PLASMA Comment: LDL calculation invalid when Triglycerid e exceeds 250 mg/dl No hemolysis noted. Ordering Provider: MAUREEN AGUILLON Report Released Date/Time: Dec 04, 2024 08:48 AM Reporting Lab: [facility] [address] [facility] [address] Performing Lab: [facility] [address] [facility] [address] [facility] COMPREHE NSIVE METABOLI C PANEL PROTEIN [MASS/VOLU ME] IN SERUM OR PLASMA 7.4 g/dL 6 - 8.6 12/05 Specimen Type: PLASMA Comment: LDL calculation invalid when Triglycerid e exceeds 250 mg/dl No hemolysis noted. Ordering Provider: MAUREEN AGUILLON Report Released Date/Time: Dec 04, 2024 08:48 AM Reporting Lab: [place] [address] Performing Lab: [place] [phone] [facility] COMPREHE NSIVE METABOLI C PANEL ALBUMIN [MASS/VOLU ME] IN SERUM OR PLASMA 4.2 g/dL 3.4 - 5 12/05 Specimen Type: PLASMA Comment: LDL calculation invalid when Triglycerid e exceeds 250 mg/dl No hemolysis noted. Ordering Provider: MAUREEN AGUILLON Report Released Date/Time: Dec 04, 2024 08:48 AM Reporting Lab: [place] [address] Performing Lab: [address] COMPREHE NSIVE METABOLI C PANEL BILIRUBIN. TOTAL [MASS/VOLU ME] IN SERUM OR PLASMA 0.4 mg/dL 0.2 - 1.2 12/05 Specimen Type: PLASMA Comment: LDL calculation invalid when Triglycerid e exceeds 250 mg/dl No hemolysis noted. Ordering Provider: MAUREEN AGUILLON Report Released Date/Time: Dec 04, 2024 08:48 AM Reporting Lab: [place] [address] Performing Lab: [place] [address] [facility] [id number] [place] [address] COMPREHE NSIVE METABOLI C PANEL ALKALINE PHOSPHATAS E [ENZYMATIC ACTIVITY/V OLUME] IN SERUM OR PLASMA 72 U/L 40 - 150 12/05 Specimen Type: PLASMA Comment: LDL calculation invalid when Triglycerid e exceeds 250 mg/dl No hemolysis noted. Ordering Provider: MAUREEN AGUILLON Report Released Date/Time: Dec 04, 2024 08:48 AM Reporting Lab: [place] [address] Performing Lab: [facility] [address] [facility] [address] [facility] COMPREHE NSIVE METABOLI C PANEL ASPARTATE AMINOTRANS FERASE [ENZYMATIC ACTIVITY/V OLUME] IN SERUM OR PLASMA 18 U/L 5 - 34 12/05 Specimen Type: PLASMA Comment: LDL calculation invalid when Triglycerid e exceeds 250 mg/dl No hemolysis noted. Ordering Provider: MAUREEN AGUILLON Report Released Date/Time: Dec 04, 2024 08:48 AM Reporting Lab: [place] [address] [facility] [address] Performing Lab: [place] [address] [facility] [address] [facility] COMPREHE NSIVE METABOLI C PANEL ALANINE AMINOTRANS FERASE [ENZYMATIC ACTIVITY/V OLUME] IN SERUM OR PLASMA 21 U/L 8 - 40 12/05 Specimen Type: PLASMA Comment: LDL calculation invalid when Triglycerid e exceeds 250 mg/dl No hemolysis noted. Ordering Provider: MAUREEN AGUILLON Report Released Date/Time: Dec 04, 2024 08:48 AM Reporting Lab: [address] [address] Performing Lab: [place] [address] [facility] [address] [facility] COMPREHE NSIVE METABOLI C PANEL GLOMERULAR FILTRATION RATE/1.73 SQ M.PREDICTE D [VOLUME RATE/AREA] IN SERUM, PLASMA OR BLOOD BY CREATININE -BASED FORMULA (CKD-EPI 2020) 38.4 60 12/05 Specimen Type: PLASMA Comment: LDL calculation invalid when Triglycerid e exceeds 250 mg/dl No hemolysis noted. Ordering Provider: MAUREEN AGUILLON Report Released Date/Time: Dec 04, 2024 08:48 AM Reporting Lab: [place] [address] [facility] [address] Performing Lab: [place] [address] [facility] [address] [facility] HEP C Ab HCV Ab (STL) HEPATITIS [...] Dec 04, 2024 08:48 AM Reporting Lab: [place] [address] Performing Lab: [address] HGA1C HEMOGLOBIN A1C/HEMOGL OBIN.TOTAL IN BLOOD 6.2 4.0 - 6.0 12/05 H Specimen Type: BLOOD No comment entered. Ordering Provider: MAUREEN AGUILLON Report Released Date/Time: Dec 04, 2024 08:48 AM Reporting Lab: [place] [address] Performing Lab: [place] [phone] LIPID PANEL (STL) CHOLESTERO L [MASS/VOLU ME] IN SERUM OR PLASMA 209 mg/dL 0 - 200 12/05 H Specimen Type: PLASMA Comment: LDL calculation invalid when Triglycerid e exceeds 250 mg/dl No hemolysis noted. Ordering Provider: MAUREEN AGUILLON Report Released Date/Time: Dec 04, 2024 08:48 AM Reporting Lab: [place] [id number] Performing Lab: [place] [phone] LIPID PANEL (STL) TRIGLYCERI DE [MASS/VOLU ME] IN SERUM OR PLASMA 296 mg/dL 0 - 150 12/05 H Specimen Type: PLASMA Comment: LDL calculation invalid when Triglycerid e exceeds 250 mg/dl No hemolysis noted. Ordering Provider: MAUREEN AGUILLON Report Released Date/Time: Dec 04, 2024 08:48 AM Reporting Lab: [facility] [address] [facility] [address] Performing Lab: [facility] [address] [facility] [address] [facility] LIPID PANEL (STL) CHOLESTERO L IN LDL [MASS/VOLU ME] IN SERUM OR PLASMA BY DIRECT ASSAY 151 mg/dL 100 12/05 Specimen Type: PLASMA Comment: LDL calculation invalid when Triglycerid e exceeds 250 mg/dl No hemolysis noted. Ordering Provider: MAUREEN AGUILLON Report Released Date/Time: Dec 04, 2024 08:48 AM Reporting Lab: [address] [address] Performing Lab: [place] [address] [facility] [address] [facility] LIPID PANEL (STL) CHOLESTERO L IN LDL [MASS/VOLU ME] IN SERUM OR PLASMA BY CALCULATIO N commentm g/dL 12/05 Specimen Type: PLASMA Comment: LDL calculation invalid when Triglycerid e exceeds 250 mg/dl No hemolysis noted. Ordering Provider: MAUREEN AGUILLON Report Released Date/Time: Dec 04, 2024 08:48 AM Reporting Lab: [place] [address] [facility] [address] Performing Lab: [place] [address] [facility] [address] [facility] LIPID PANEL (STL) CHOLESTERO L IN HDL [MASS/VOLU ME] IN SERUM OR PLASMA 29 mg/dL 40 12/05 L Specimen Type: PLASMA Comment: LDL calculation invalid when Triglycerid e exceeds 250 mg/dl No hemolysis noted. Ordering Provider: MAUREEN AGUILLON Report Released Date/Time: Dec 04, 2024 08:48 AM Reporting Lab: [address] [address] Performing Lab: [address] [address] [facility] PROST. SPECIFIC AG.(PB-S TL) PROSTATE SPECIFIC AG [...] Dec 04, 2024 08:48 AM Reporting Lab: [place] [address] [facility] [address] Performing Lab: [place] [address] [facility] [address] [place] [address] TSH W/ REFLEX FT4 (STL) THYROTROPI N [UNITS/VOL UME] IN SERUM OR PLASMA 3.793 u[IU]/mL 0.47 - 5 12/05 Specimen Type: PLASMA No comment entered. Ordering Provider: MAUREEN AGUILLON Report Released Date/Time: Dec 04, 2024 08:48 AM Reporting Lab: [place] [address] [address] [facility] [address] Performing Lab: [address] [address] [facility] Vital Signs Combined list of inpatient and outpatient Vital Signs from Department of Defense and Veterans Affairs, ranging from 12 months to all on record, depending upon the facility. Vital Sign Value Date Comments Source SYSTOLIC BLOOD PRESSURE 145 12/05/2024 12:38:48 [facility] DIASTOLIC BLOOD PRESSURE 84 12/05/2024 12:38:48 [facility] PULSE OXIMETRY 97 12/05/2024 12:38:48 [facility] WEIGHT 307.2 12/05/2024 12:38:48 [facility] BMI 41 kg/m2 12/05/2024 12:38:48 [facility] PAIN 6 12/05/2024 12:38:48 [facility] HEIGHT 73 12/05/2024 12:38:48 [facility] TEMPERATURE 98.3 12/05/2024 12:38:48 [facility] PULSE 75 12/05/2024 12:38:48 [facility] RESPIRATION 20 12/05/2024 12:38:48 [facility] SYSTOLIC BLOOD PRESSURE 137 11/29/2024 12:53:56 [facility] DIASTOLIC BLOOD PRESSURE 84 11/29/2024 12:53:56 [facility] PULSE OXIMETRY 97 11/29/2024 12:53:56 [facility] WEIGHT 307.7 11/29/2024 12:53:56 [facility] BMI 41 kg/m2 11/29/2024 12:53:56 [facility] PAIN 0 11/29/2024 12:53:56 [facility] TEMPERATURE 98.2 11/29/2024 12:53:56 [facility] PULSE 83 11/29/2024 12:53:56 [facility] RESPIRATION 16 11/29/2024 12:53:56 [facility] Encounters Combined list of: 1) Encounters from Department of Veterans Affairs facilities going backup to the last 18 months, not all VA inpatient encounters are included; 2) Encounters from the Department of Defense facilities going backup to 280 months. Location Location Details Encounter Type Encounter Number Reason For Visit Attending Provider ADM Date DC Date Status Disposition Source [address] [place] [address] [facility] Non-GME FHI1) OUTPATIENT [id number] stop smoking CYNDY LINARES 12/15 Released w/o Limitations [address] [place] [address] [facility])(F amily Practic e Non-GME FHI1) [address] [place] [address] [facility] Non-GME FHI1) OUTPATIENT [id number] tobacco cessati on class #1 CYNDY LINARES P 12/16 Released w/o Limitations [address] [place] [address] [facility]F amily Practic e Non-GME FHI1) [address] [place] [address] [employer] ([facility]) OUTPATIENT [id number] tobacco cessati on VANDA ANOMI Shandra 12/30 Released w/o Limitations [address] [place] [address] [employer] [facility])(F amily Practic e Non-GME FHI1) [address] [place] [address] [employer] [facility])([facility] ) OUTPATIENT [id number] tobacco cessati on class #5 HAYDEN CRONIN 01/14 Released w/o Limitations [address] [place] [address] [employer] [facility] Tm) [address] [place] [address] [employer] ([facility] Non-GME FHI1) OUTPATIENT [id number] tobacco cessati on follow- up CYNDY LINARES 02/03 Released w/o Limitations [address] [place] [address] [employer] [facility])(F amily Practic e Non-GME FHI1) [address] [place] [address] [employer] [facility] Non-GME FHI1) OUTPATIENT [id number] fol PHA CYNDY LINARES 05/30 Released w/o Limitations [address] [place] [address] [employer] [facility])(F amily Practic e Non-GME FHI1) [address] [place] [address] [employer] [facility] Non-GME FHI1) OUTPATIENT [id number] f/u to labs/EK G needed/ physica l CYNDY LINARES P 06/13 Released w/o Limitations [address] [place] [address] [employer] [facility])(F amily Practic e Non-GME FHI1) [address] [place] [address] [employer] [facility])([facility] FAMRES Tm Blue) TELE CONSULT [id number] Labs for C-Scope VERONICA JUAREZ 06/[address] [place] [address] [employer] [facility])([facility] FAMRES Tm Blue) [address] [place] [address] [employer] [facility] Non-GME FHI2) OUTPATIENT [id number] sore throat KULWINDER MACHUCA 06/22 Released w/o Limitations [address] [place] [address] [employer] [facility])(F amily Practic e Non-GME FHI2) [address] [place] [address] [employer] ([facility] [facility] Non-GME FHI1) TELE CONSULT [id number] call back - [place] Siddiqui am 06/[address] [place] [address] [employer] ([facility])(F amily Practic e Non-GME FHI1) [address] [place] [address] [employer] ([facility])([facility] Non-GME FHI2) OUTPATIENT [id number] sore throat KULWINDER MACHUCA 06/27 Released w/o Limitations [address] [place] [address] [employer] ([facility])(F amily Practic e Non-GME FHI2) [address] [place] [address] [employer] ([facility])(Sco tt [facility] FAMRES Tm Blue) OUTPATIENT [id number] visit for: screeni ng maligna nt neoplas m colon RAMESH ELLINGTON 07/26 Released w/o Limitations [address] [place] [address] [employer] [facility])(S cott [facility] FAMRES Tm Blue) [address] [place] [address] [employer] [facility] [facility])(Sco tt [facility] FAMRES Tm Blue) TELE CONSULT [id number] Colonos ocpy results RAMESH ELLINGTON 08/[address] [place] [address] [employer] [facility] [facility])(S cott [facility] FAMRES Tm Blue) [address] [place] [address] [employer] [facility])(Gen eral Surgery) OUTPATIENT [id number] 3cm colonic polyp BARB PENN 08/17 Released w/o Limitations [address] [place] [address] [employer] ([facility])(G eneral Surgery ) [address] [place] [address] [employer] [facility] Non-GME FHI1) TELE CONSULT [id number] call back - SONNY Andino am 09/[address] [place] [address] [employer] ([facility])(F amily Practic e Non-GME FHI1) [address] [place] [address] [employer] [facility])(Gen eral Surgery) OUTPATIENT [id number] f/u-per zaynab Penn KENNETH D 09/14 Released w/o Limitations [address] [place] [address] [employer] ([facility])(G eneral Surgery ) [address] [place] [address] [employer] [facility])(Gen eral Surgery) OUTPATIENT [id number] BARB PENN 09/20 Released w/o Limitations [facility] [employer] ([facility])(G eneral Surgery ) [address] [place] [address] [employer] B ([facility])(Opt ometry) OUTPATIENT [id number] routine eye exam JUDSON BACON W 09/21 Released w/o Limitations [facility] [employer] ([facility])(O ptometr y) [address] [place] [address] [employer])([facility] Non-GME FHI2) TELE CONSULT [id number] call back-pa THERESA Dupont am 10/[address] [place] [address] [employer])(F amily Practic e Non-GME FHI2) [address] [place] [address] [employer] B ([facility])(Gen eral Surgery) OUTPATIENT [id number] fzaynab bravo KENNETH D 10/27 Released w/o Limitations [facility] [employer] [facility])(G eneral Surgery ) [address] [place] [address] [employer] [facility])(Gen eral Surgery) OUTPATIENT [id number] zaynab gonzalez KENNETH D 01/15 Released w/o Limitations [facility] [employer] ([facility])(G eneral Surgery ) [address] [place] [address] [employer] [facility] Non-GME FHI2) TELE CONSULT [id number] jerri ponce -- [place] Siddiqui am 01/[address] [place] [address] [employer] [facility])(F amily Practic e Non-GME FHI2) [address] [place] [address] [employer] [facility] [place] [facility] Non-GME FHI1) OUTPATIENT [id number] follow- up colon CA CYNDY LINARES 02/06 Released w/o Limitations [address] [place] [address] [employer] [facility] [facility])(F amily Practic e Non-GME FHI1) [address] [place] [address] [employer] [facility])([facility] Non-GME FHI1) TELE CONSULT [id number] lab results . NOLA SWIFT 03/[address] [place] [address] [employer] [facility])(F amily Practic e Non-GME FHI1) [facility] Outpatient Encounter [id number] 10/21 [facility] Outpatient Encounter [id number] 11/27 [facility] Outpatient Encounter [id number] CORBYMARIA DE JESUS RRY 11/28 [facility] OFFICE O/P NEW MOD 45 MIN [id number] Diagnos is: ICD-10- CM E78.5 Hyperli pidemia , unspeci fied ME EDSON JONES 11/29 [facility] Outpatient Encounter [id number] 11/30 [facility] OFFICE O/P NEW HI 60 MIN [id number] Diagnos is: ICD-10- CM Z77.29 Contact with and exposur e to other hazardo us substan RADHA Muller 12/05 [facility] Outpatient Encounter [id number] 12/05 [facility] Outpatient Encounter [id number] 12/06 [facility] Outpatient Encounter [id number] 12/06 [facility] SYNCH AUDIO-ONLY EST SF 10 [id number] Diagnos is: ICD-10- CM 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 Dana GONZALEZ UAN 12/19 [facility] OFF/OP EST MAY X REQ PHY/QHP [id number] Diagnos is: ICD-10- CM Z02.9 Encount er for adminis trative examina tions, unspeci fied RAYSHAWN,CY NTHIA A 12/19 [facility] Outpatient Encounter [id number] 12/26 [facility] OFF/OP CONSLTJ NEW/EST HI 55 [id number] Diagnos is: ICD-10- CM 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 LISA,J UAN 01/04 [facility] Outpatient Encounter [id number] 01/27 [facility] Procedures Combined list of: 1) Procedures from Department of Veterans Affairs facilities going back up to thelast 18 months, not all [place] non-surgical procedures are included; 2) All procedures [...] POSTOPERATIVE PERIOD REASON RELATED ORIGINAL PROCEDURE 8 DoD DETERMINATION OF REFRACTIVE STATE 8 DoD COLONOSCOPY, FLEXIBLE; WITH BIOPSY, SINGLE OR MULTIPLE 7 DoD Non-Physician Phone Call To Pt/Provider Lengthy (21-30 min) Non-Physician Phone Call To Pt/Provider Lengthy (21-30 min) [id number] NOL[facility] SWIFT [facility] Determination Of Refractive State Determination Of Refractive State [id number] 8 JUDSON BACON [facility] Visual Serrano Test Intermediate Examination Visual Serrano Test Intermediate Examination [id number] 8 JUDSON BACON Ophthalmological New Patient Start Comprehensive Care Ophthalmological New Patient Start Comprehensive Care [id number] 8 JUDSON BACON Complete Colonoscopy 00 7 RAMESH ELLINGTON Colonoscopy For Forceps Biopsy 7 RAMESH ELLINGTON Social History Combined list of available smoking, tobacco, and other social history from Department of Defense and Veterans Affairs facilities. Social History Type Response Date Comment [facility] e Tobacco smoking status TXIS IN-TOBACCO USE FORMER CIGARETTES 11/29/2024 [facility] History of tobacco use IN-TOBACCO NEVER USED OTHER TYPE 11/29/2024 [facility] History of tobacco use QUIT TOBACCO >7 YEARS AGO 04/15/2015 [facility] History of tobacco use QUIT TOBACCO >7 YEARS AGO 03/19/2014 [facility] History of tobacco use QUIT TOBACCO >7 YEARS AGO 04/06/2013 [facility] This section is an empty social history section. [facility] Plan of Care List of future care activities from Department of Veterans Affairs facilities. Additional future care activities may be listed in the Assessment and Plan section. Date/Time Care Activity Care Activity Detail Facili ty 05/25/2025 AMBULATORY - SURGERY AMBULATORY - SURGERY [facility]
--- OUTSIDE RECORDS SUMMARY | 2025-04-16 13:03 | XMS_ITS | Encounter Summary ---
Author Organization [facility] Healthcare Address [address] [place] [address] Care Team Providers Care Supervisor Sewer System Name Role Phone Aj Tejeda MD Primary Care Provider Reason for Visit * Reason Onset Date Comments Med Refill 11/24/2018 Encounter Details Date Type Department Care Team (Late st Contact Info) Description 11/24/2018 Telephone [facility] [address] [facility] [address] [place] [phone] [place] [address] [place] [address], [place] [address] Med Refill Social History Tobacco Use Types Packs/Day Years Used Date Smoking Tobacco: Former Smokeless Tobacco: Never Alcohol Use Standard Drinks/Week Comments Yes 6 (1 standard drink = 0.6 oz pur e alcohol) Sex and Gender Information Value Date Recorded Sex Assigned at Not on file 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
--- OUTSIDE RECORDS SUMMARY | 2025-04-16 13:03 | XMS_ITS | Encounter Summary ---
Author Organization [facility] Address 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 documented in this encounter Plan of Treatment Upcoming Encounters Date Type Department Care Team (Late st Contact Info) Description 05/24/2025 1:30 PM CDT Procedure visit [facility] - [address] [facility] [address] [address] [facility] [address] [place] [address] documented as of this encounter Visit Diagnoses Not on filedocumented in this encounter Care Teams Clay Worker Relationship Specialty Start Date End Date Aj Tejeda MD [address] [address] [place] [address] PCP - General Family Practice 12/18/24 documented as of this encounter
--- OUTSIDE RECORDS SUMMARY | 2025-04-16 13:03 | XMS_ITS | Clinical Summary ---
Author Organization [facility] Address [address] [place] [address] Care Team Providers Care Wire Mesh Gate Assembler Name Role Phone Aj Tejeda MD [...] Stiolto Respimat 2.5-2.5 mcg/actuation inhaler 3 Active amiodarone (PACERONE) 100 mg tablet Take [...] 500 mg capsule Take by mouth Active qkucazcm-nprb-s yi8-Q-ozbb-bosw 750 mg-644 mg- 30 mg-1 mg tablet Take by mouth Active furosemide (LASIX) 20 mg tabletIndicatio ns:Bilateral lower extremity edema TAKE 1 TABLET DAILY NEEDED FOR SWELLING 90 tablet 2 5 Active Active Problems Problem Noted Date [...] Cephalalgia 05/26/2017 Neuralgia 05/25/2017 No diagnosis on Lanse I 05/04/2017 Memory impairment 04/22/2017 Degeneration of [...] stimulator 04/03/2022 06/25/2022 Glucose intolerance 11/14/2018 11/15/19 Postlaminectomy syndrome of lumbar region 06/22/2018 04/17/2022 [...] on cancer Sleep apnea Emphysema of lung 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 Atrial fibrillation (HCC) Borderline diabetic Family History Medical History Relation Name Comments Cancer Brother 1 Michael Daigle Cancer Brother 2 Yomi Daigle Prostate cancer Brother 2 Yomi Daigle Cancer, pros trejo; Cause of : Cancer, prostate Bleeding Disorder Brother 3 Jason Alons COPD Brother 3 Jason Daigle Clotting disorder [...] on file Legal Sex Male 11:32 PM EDITOR NEWS Gender Identity Male 04/01/2020 9:43 AM CDT Sexual Orientation Straight 11/07/2018 9: 10 PM CDT Occupation Industry Job Start Date Job End Date retired Not on file Not on file Not on file Obstetrics History Last Filed Vital Signs Vital Sign Reading Time Taken Comments Blood Pressure 134/72 10/24/2024 2:30 PM EDITOR NEWS Pulse 80 10/24/2024 2:30 PM EDITOR NEWS Temperature 37 C (98.6 F) 02/21/2024 1:23 PM CDT Respiratory Rate 18 04/21/2024 8:50 AM CDT Oxygen Saturation 97% 10/24/2024 2:30 PM EDITOR NEWS Inhaled Oxygen Concentration - - Weight 140.6 kg (310 lb) 10/24/2024 2:30 PM EDITOR NEWS Height 188 cm (6' 2) 10/24/2024 2:30 PM EDITOR NEWS Body Mass Index 39.8 10/24/2024 2:30 PM EDITOR NEWS Plan of Treatment Health Maintenance Due Date Last Done Comments Depression Screening 1943 Hepatitis B Screening 1961 Pneumococcal vaccine 65+ (1 of 1 - PCV) 1993 Abdominal Aortic Aneurysm (A AA) Screen 2008 Well Visit 65+ 2008 DTaP/Tdap/Td Vaccine (1 - Tdap) 05/09/2011 1 Zoster Vaccine (2 of 3) 07/18/2013 05/23/2013 Covid-19 Vaccine (4 - season) 2024 09/19/2021, 11/23/2020, 10/26/2020 Fall Risk Assessment 04/21/2025 04/21/2024, 03/28/2024, 01/30/2020 Influenza Vaccine (#1) 2025 09/19/2021 Goals Goal Patient Goal Type Associated Problems [...] as needed Medical Devices Implanted Type Area Test Fixture Assembler Device Identifier Shelf Expiration Date Model / Serial / Lot [employer] Proclaim Elite 4.95cmx5.55cm 5 Implantable Pulse Tonic 3660 Contrlsys - [id number] Implanted:Qty: 1 on 05/14/2022 by Shawn Boyce MD PhD at [facility] Other - see comments N/A: Back [employer] 3660 CONTRLSYS / / Description:Pulse generator Spinal Cord Stimulator-06/2017 Implanted:07/30 by Lamonte Donahue MD (Quantity not on file) Spinal Cord Stimulator Back Nevro Alejandra Description:Model name lead1 [id number] Serial [id number] Implanted date 08-09-17 NEVRO SPINAL CORD STIMULATOR Per the vendor, this patients device exceeds the allowed impedence to safely have an MRI without surgical replacement Hip Bilater al: Hip Description:Total hip replac ment x2 [employer] [facility] Vascade Mvp 6-12fr Venous Closure [id number] - [id number] Implanted:Qty: 1 on 02/21/2024 by Abhilash Smith MD at [facility] 11/07/2025 800-612C-10 U / / [id number] [facility] [employer] Vascade Mvp 6-12fr Venous Closure [id number] - [id number] Implanted:Qty: 1 on 02/21/2024 by Abhilash Smith MD at [facility] 11/07/2025 800-612C-10 U / / [id number] Vascade Mvp 6-12fr Venous Closure [id number] - [id number] Implanted:Qty: 1 on 02/21/2024 by Abhilash Smith MD at [facility] 11/07/2025 800-612C-10 U / / [id number] Insurance FOR LIFE MEDICARE [facility] MEDICARE MEDICARE FOR LIFE Advance Directives For more information, please contact: [phone] * Full Code (Latest Code Status on File) Date Activated Date Inactivated Comments 07/14/2018 10:13 AM 07/14/2018 12:31 PM Care Teams Wire Mesh Gate Assembler Relationship Specialty Start Date End Date Aj Tejeda MD [address] [place] [address] PCP - General 10/06/18
--- OUTSIDE RECORDS SUMMARY | 2025-04-16 13:03 | XMS_ITS | Encounter Summary ---
Author Organization [facility] Address [address] [place] [id number] Care Team Providers Care Fuel Conversion Technician Name Role Phone Addi Heredia MD Primary Care Provider + [phone] Primo Heredia Primary Care Provider +[phone] Addi Heredia MD Primary Care Provider + [phone] Miscellaneous, Not In File Primary Care Provider Unavailable Addi Heredia MD Primary Care Provider + [phone] Tremayne Del Real MD Primary Care Provider [...] Addi Heredia MD Primary Care Provider + [phone] Tremayne Del Real MD Primary Care Provider Addi Heredia MD Primary Care Provider + [phone] Addi Heredia MD Primary Care Provider + [phone] Tremayne Del Real MD Primary Care Provider Addi Heredia MD Primary Care Provider + [phone] Addi Heredia MD Primary Care Provider + [phone] Tremayne Del Real MD Primary Care Provider Addi Heredia MD Primary Care Provider + [phone] Addi Heredia MD Primary Care Provider + [phone] Tremayne Del Real MD Primary Care Provider Addi Heredia MD Primary Care Provider + [phone] Tremayne Del Real MD Primary Care Provider Addi Heredia MD Primary Care Provider + [phone] Tremayne Del Real MD Primary Care Provider Addi Heredia MD Primary Care Provider + [phone] Addi Heredia MD Primary Care Provider + [phone] Tremayne Del Real MD Primary Care Provider Aj Tejeda MD Primary Care Provider Encounter Details Date Type Department Care Team (Late st Contact Info) Description 09/03/2016 Orders Only [facility] Provider, MD Rick [address] [place] [id number] Social History Tobacco Use Types Packs/Day Years Used Date Smoking Tobacco: Never Alcohol Use Standard Drinks/Week Comments Yes 0 (1 standard drink = 0.6 oz pur e alcohol) Sex and Gender Information Value Date Recorded Sex Assigned at Not on file 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 Gender Identity Male 04/01/2020 9:43 AM CDT [...] on filedocumented in this encounter Care Teams Fuel Conversion Technician Relationship Specialty Start Date End Date Addi Heredia MD [address] [place] [address] PCP - General 11/27/16 01/18/17 Primo Heredia [address] [place], [place] [id number] PCP - General 10/14/16 11/26/16 Addi Heredia MD [address] [place] [address] PCP - General 08/06/16 10/13/16 Miscellaneous, Not In File PCP - General 01/19/17 Addi Heredia MD [address] [place], [place] [id number] PCP - General 01/20/17 04/21/17 Tremanye Del Real MD PCP - General 04/22/17 [...] 08/04/1708/08 Addi Heredia MD [address] [place] [address] PCP - General 08/09/17 08/09/17 Tremayne Del Real MD PCP - General 08/10/17 08/17/17 Addi Heredia MD [address] [place], [place] [id number] PCP - General 08/18/17 08/24/17 Addi Heredia MD [address] [place] [address] (Fax) PCP - General 08/25/17 08/25/17 Tremayne Del Real MD PCP - General 08/26/17 09/02/17 Addi Heredia MD [address] [place] [address] (Fax) PCP - General 09/03/17 09/06/17 Addi Heredia MD [address] [place] [address] (Fax) PCP - General 09/07/17 09/13/17 Tremayne Del Real MD PCP - General 09/14/17 09/15/17 Addi Heredia MD [address] [place] [address] (Fax) PCP - General 09/16/17 09/16/17 Addi Heredia MD [address] [place] [address] (Fax) PCP - General 09/17/17 09/29/17 Tremayne Del Real MD PCP - General 09/30/17 10/12/17 Addi Heredia MD [address] [place] [address] (Fax) PCP - General 10/13/17 10/14/17 Tremayne Del Real MD PCP - General 10/15/17 10/15/17 Addi Heredia MD [address] [place] [address] (Fax) PCP - General 10/16/17 10/20/17 Tremayne Del Real MD PCP - General 10/21/17 11/09/17 Addi Heredia MD [address] [place] [address] (Fax) PCP - General 11/10/17 11/10/17 Addi Heredia MD [address] [place] [address] (Fax) PCP - General 11/11/17 11/21/17 Tremayne Del Real MD PCP - General 11/22/17 10/05/18 Aj Tejeda MD [address] [place] [address] PCP - General 10/06/18 documented as of this encounter
--- OUTSIDE RECORDS SUMMARY | 2025-04-16 13:03 | XMS_ITS | Clinical Summary ---
Author Organization [facility] Address [address] [place] [address] Care Team Providers Care Wind Tunnel Engineer Name Role Phone Aj Tejeda MD Primary Care Provider [phone] Allergies Active Allergy Reactions Criticality Noted Date [...] Encounters Date Type Department Care Team Description 2025 External Device Data STL ABSTRACTION Provider, Abstract 2025 External Device Data STL ABSTRACTION Provider, Abstract 02/22/2025 11:30 AM CDT Procedure visit [facility] - [address] [address] [facility] [address] [place] [address] Persistent atrial fibrillation (CMS/HCC) (Primary Dx); Symptomatic bradycardia 02/22/2025 Results Follow-Up [facility] - [id number] [place] [address] [facility] [address] [place] [address] Primo Estes MD PACER PROGRAM EVAL DUAL LEAD 02/14/2025 External Device Data STL ABSTRACTION Provider, Abstract 01/31/2025 11:30 AM CDT Office Visit [facility] - [address] [address] [facility] [address] [place] [phone] Bradycardia (Primary Dx) 01/24/2025 1:25 PM CDT - 01/24/2025 3:26 PM CDT Surgery [facility] Cardiac Canned Food Reconditioning Inspector [address] [place] [address] Joel Smith MD Pacemaker insertion 01/24/2025 1:24 PM CDT Anesthesia Event [facility] Cardiac Canned Food Reconditioning Inspector [address] [place] [address] Tonie Buck MD 01/24/2025 11:02 AM CDT - 01/24/2025 5:47 PM CDT Hospital Encounter [facility] Cardiac Canned Food Reconditioning Inspector [place] [address] [address] [place] [address] Joel Smith MD Symptomatic bradycardia Discharge Disposition: Home or Self Care 01/23/2025 External Device Data STL ABSTRACTION Provider, Abstract 01/18/2025 External Device Data STL ABSTRACTION Provider, Abstract 01/17/2025 External Device Data STL ABSTRACTION Provider, Abstract from Last 3 Months Family History Medical History Relation Name Comments Prostate Cancer Father Relation Name Status Comments Father Mother Social History Tobacco Use Types Packs/Day Years Used Date Smoking Tobacco: Never Assessed Sex and Gender Information Value Date Recorded Sex Assigned at Not on file Legal Sex Male 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 Gender Identity Not on file Sexual Orientation Not on file Last Filed Vital Signs Vital Sign Reading Time Taken Comments Blood Pressure 134/70 02/22/2025 11:26 AM CDT [place] Pulse 84 01/24/2025 5:00 PM CDT Temperature 36.3 C (97.3 F) 01/24/2025 11:21 AM CDT Respiratory Rate 17 01/24/2025 5:00 PM CDT Oxygen Saturation 99% 01/24/2025 5:00 PM CDT Inhaled Oxygen Concentration - - Weight 131.1 kg (289 lb) 02/22/2025 11:26 AM CDT Height 200.7 cm (6' 7) 02/22/2025 11:26 AM CDT Body Mass Index 32.56 02/22/2025 11:26 AM CDT Plan of Treatment Upcoming Encounters Date Type Department Care Team (Late st Contact Info) Description 05/24/2025 1:30 PM CDT Procedure visit [facility] - [address] [facility] [address] [address] [facility] [address] [place] [address] Health Maintenance Due Date Last Done Comments ZOSTER VACCINE (2 of 3) 07/18/2013 05/23/2013 PNEUMOCOCCAL VACCINE 50+ YEA RS (2 of 2 - PCV20 or PCV21) 04/15/2016 04/15/2015, 04/06/2013 RSV VACCINE (60+ or ) (1 - 1-dose 75+ series) 2018 DTAP/TDAP/TD VACCINES (2 - Td or Tdap) 10/28/2021, 05/08/2011 INFLUENZA VACCINE (#1) 2025 Medical Devices Implanted Type Area Document Specialist Device Identifier Shelf Expiration Date Model / Serial / Lot Hemostatic Surg Powder 3013sp - [id number] Implanted:Qty: 1 on 01/24/2025 by Joel Smith MD at [facility] Hemostatic Left: Chest [employer] [id number] 03/29/2026 3013SP / / [id number] Lead Capsurefix Novus Mri 58cm Endocardial Pacing 5077 5076-58 - [id number] Implanted:Qty: 1 on 01/24/2025 by Joel Smith MD at [facility] Lead Left: Chest [employer]- CRM - BULK BUY [id number] 09/14/2026 5076-58 / [id number] 9V / Lead Capsurefix Novus Mri 52cm Endocardial Pacing 5076-52 - [id number] Implanted:Qty: 1 on 01/24/2025 by Joel Smith MD at [facility] Lead Left: Chest [employer]- CRM - BULK BUY [id number] 11/17/2026 5076-52 / [id number] 0V / Pacemaker [place] Xt Dr Mri Ipg Dual Chmbr Surescan W1dr01 - [id number] Implanted:Qty: 1 on 01/24/2025 by Joel Smith MD at [facility] Pacemaker Left: Chest [employer]- CRM - BULK BUY [id number] 06/12/2026 W1DR01 / [id number] / Procedures Procedure Name Priority Date/Time Associated Diagnosis Comments FL PROGRAM EVAL IMPLANTABLE IN PERSN DUAL LD PACER Routine 02/22/2025 11:21 AM CDT Persistent atrial fibrillation (CMS/HCC) Symptomatic bradycardia TELEMETRY REPORT 01/26/2025 3:12 PM CDT XR CHEST PA OR AP 1 VW Stat 01/24/2025 3:26 PM CDT CARDIOVERSION Routine 01/24/2025 2:44 PM CDT Symptomatic bradycardia Atrial fibrillation, persistent (CMS/HCC) PACEMAKER INSERTION Routine 01/24/2025 2 :44 PM CDT Symptomatic bradycardia Atrial fibrillation, persistent (CMS/HCC) EKG 12-LEAD Routine 01/24/2025 11:18 AM CDT Symptomatic bradycardia Atrial fibrillation, persistent (CMS/HCC) BASIC METABOLIC PANEL Routine 01/17/2025 12:39 PM CDT Persistent atrial fibrillation (CMS/HCC) Bradycardia CBC WITH DIFFERENTIAL Routine 01/17/2025 12:39 PM CDT Persistent atrial fibrillation (CMS/HCC) Bradycardia from Last 3 Months Results * FL PROGRAM EVAL IMPLANTABLE IN PERSN DUAL LD PACER (02/22/2025 11:21 AM CDT) Narrative [facility] - 02/22/2025 11:21 AM CDT Juliette Sen RN 02/22/2025 12:22 PM The patient was seen in clinic for evaluation of his Medtronic dual chamber pacemaker one month post implant. The patient reports to be feeling fatigued, lightheadedness when standing up, and shortness of breath with exertion. He denies complaints of chest pain or syncope. He states he is feeling better overall since pacemaker was implanted. His left pectoral incision is healed with no erythema, drainage, swelling, or tenderness. Left arm activity restrictions removed during today's visit. Interrogation of the patient's pacemaker shows that the device is functioning as programmed. Battery voltage is stable at 3.22 V and the device calculates longevity at 12.3 years. Lead impedances have all remained stable. Pacing and sensing thresholds are all within normal limits. AP-80.4%, ACCOUNT ANALYST-9%. The underlying rhythm during today's evaluation is sinus rhythm with a first degree AV block. No arrhythmias have been detected by the device. The patient is to follow-up in the device clinic in 3 months. We will follow his device and arrhythmia status remotely via the [employer] remote follow up system. The patient was instructed to call the office with any questions or concerns. Conclusion: Normal device function. No arrhythmias. Procedure Note Juliette Sen RN - 02/22/2025 11:21 AM CDT The patient was seen in clinic for evaluation of his Medtronic dualchamber pacemaker one month post implant. The patient reports to befeeling fatigued, lightheadedness when standing up, and shortness ofbreath with exertion. He denies complaints of chest pain or syncope. Hestates he is feeling better overall since pacemaker was implanted. Hisleft pectoral incision is healed with no erythema, drainage, swelling, ortenderness. Left arm activity restrictions removed during today's visit. Interrogation of the patient's pacemaker shows that the device isfunctioning as programmed. Battery voltage is stable at 3.22 V and thedevice calculates longevity at 12.3 years. Lead impedances have allremained stable. Pacing and sensing thresholds are all within normallimits. AP-80.4%, ACCOUNT ANALYST-9%. The underlying rhythm during today's evaluationis sinus rhythm with a first degree AV block. No arrhythmias have beendetected by the device. The patient is to follow-up in the device clinic in 3 months. We willfollow his device and arrhythmia status remotely via the [employer] remotefollow up system. The patient was instructed to call the office with anyquestions or concerns. Conclusion: Normal device function. No arrhythmias. us Primo Estes MD CARDIAC SERVICES ORDERABLES F inal Result [facility] [address] [address] * TELEMETRY REPORT (01/26/2025 3:12 PM CDT) us Provider Scanning ECG ORDERABLES Final Result * XR CHEST PA OR AP 1 VW (01/24/2025 3:26 PM CDT) Anatomical Region Laterality Modality Chest Computed Radiogr aphy 01/24/2025 3:26 PM CDT Impressions 01/24/2025 3:30 PM CDT FINDINGS/IMPRESSION: Dual lead cardiac device is present. There is no pneumothorax, pleural effusion, or confluent consolidation. The heart size is normal. DICTATION LOCATION: Location [address] [place] [address] Narrative 01/24/2025 3:30 PM CDT EXAMINATION: XR CHEST PA OR AP 1 VW DATE: 01/24/2025 3:26 PM HISTORY: Post-Operative; COMPARISON: None available us Joel Smith MD DIAGNOSTIC IMAGING ORD ERABLES Edited Result - Final * PACEMAKER INSERTION, CARDIOVERSION (01/24/2025 2:44 PM CDT) Narrative Joel Smith MD - 01/24/2025 2:57 PM CDT Patient Name: Jason Daigle Date of : 1945 Primary Physician: Aj Tejeda MD Procedure Date: 01/24/2025 Name of procedure: Placement of a dual chamber pacemaker Subclavian venography Synchronized cardioversion History: Mr. 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 Risks and expected recovery has been explained in detail. Alternative options have been explored, and in a shared-decision making fashion we have decided that this was the most appropriate procedure. Methods: After informed consent was obtained, the patient was brought to the EP laboratory in a postabsorptive, nonsedated state. Peripheral IV access was established. Prophylactic antibiotics were administered prior to incision. Continuous ECG, blood pressure, and pulse oximetry were initiated. Cardioversion patch electrodes were placed on the patient's chest and back. A grounding patch was applied to the skin. Sedation was administered by our anesthesia colleagues. In order to define the extrathoracic portion of the subclavian vein and exclude significant venous obstruction or anomalous anatomy, subclavian venography was performed prior to the procedure. Using the patient's left peripheral IV, contrast was injected and images were recorded. The left subclavian vein and SVC were found to be widely patent. The left chest was prepared and draped in a sterile fashion. Local anesthesia was injected in the subcutaneous tissue in the infraclavicular area. An incision was made medial to the deltopectoral groove. The subcutaneous tissue was dissected the level of the prepectoral fascia. A subcutaneous pocket was created. Under fluoroscopic guidance and with the assistance of the images from the venogram, 2 separate venipunctures were made using micropuncture and modified Seldinger technique. These were performed in the extrathoracic portion of the subclavian vein. Guidewires were passed and two peel-away sheaths were placed, and used to advance leads into the circulation. Using fluoroscopic guidance, the leads were positioned. The RV lead was advanced to the RV/outflow tract. Ventricular ectopy was recorded. Images were taken in RAMOS and BANGLADESHI views to ensure appropriate lead placement. The lead tip was subsequently positioned on the apical septum. Adequate sensing and pacing parameters were found, and no diaphragmatic stimulation was seen with high-output pacing. The newly placed RV lead was placed with a backup pacing rate of VVI at 40 bpm. At this time, the patient was underwent a synchronized cardioversion at 300 J x 1. Resulting rhythm showed significant sinus pause requiring brief period of ventricular pacing, followed by sinus rhythm with first-degree AV block. Next, the right atrial lead was positioned in the right atrial appendage. Adequate sensing and pacing parameters were found, and no diaphragmatic stimulation was seen with high-output pacing. Both sheaths were split, and the leads were secured to the fascia with Ethibond ties. The pocket was flushed with antibiotic solution and hemostasis was assured. Surgicel was applied. The generator was connected to the leads and placed inside the pocket. The wound was closed with 3 running layers of absorbable suture, and steripstrips were applied Following the procedure, the patient was taken to the recovery area in stable condition. A chest x-ray was obtained in the holding area. Lead parameters and device programming: -RA Lead 5076 (#[id number] ): Sensing 5 mV, Pacing threshold 0.5 V at 0.4 ms, Imp 494 Ohm -RV Lead 5076 (#[id number] ): Sensing 11 mV, Pacing threshold 1.0 V at 0.4 ms, Imp 1045 Ohm -Device: Medtronic [place] XT DR MRI W1DR01 pacemaker (#[id number] ), programmed AAIR<==>DDDR 60-130 Conclusions: Successful placement of a dual-chamber pacemaker Successful synchronized cardioversion Subclavian venography Recommendations: Discharge later this evening if discharge parameters are met. Portable chest x-ray in holding area. Continue Eliquis 5 mg twice daily uninterrupted Follow-up will be arranged in our office 7-10 days post-discharge Joel Smith MD Clinical Cardiac Proposal Analyst Procedure Note Joel Smith MD - 01/24/2025 Patient Name: Jason Daigle Date of : 1945 Primary Physician: Aj Tejeda MD Procedure Date: 01/24/2025 Name of procedure: Placement of a dual chamber pacemaker Subclavian venography Synchronized cardioversion History: Mr. Daigle is an 79-year-old male with a history of persistent atrialfibrillation/tachycardia bradycardia syndrome (severe bradycardia postcardioversion) presents for dual-chamber pacemaker insertion as well ascardioversion. Risks and expected recovery has been explained in detail. Alternativeoptions have been explored, and in a shared-decision making fashion wehave decided that this was the most appropriate procedure. Methods: After informed consent was obtained, the patient was brought to the EPlaboratory in a postabsorptive, nonsedated state. Peripheral IV access wasestablished. Prophylactic antibiotics were administered prior to incision.Continuous ECG, blood pressure, and pulse oximetry were initiated.Cardioversion patch electrodes were placed on the patient's chest andback. A grounding patch was applied to the skin. Sedation was administeredby our anesthesia colleagues. In order to define the extrathoracic portion of the subclavian vein andexclude significant venous obstruction or anomalous anatomy, subclavianvenography was performed prior to the procedure. Using the patient's leftperipheral IV, contrast was injected and images were recorded. The leftsubclavian vein and SVC were found to be widely patent. The left chest was prepared and draped in a sterile fashion. Localanesthesia was injected in the subcutaneous tissue in the infraclaviculararea. An incision was made medial to the deltopectoral groove. Thesubcutaneous tissue was dissected the level of the prepectoral fascia. Asubcutaneous pocket was created. Under fluoroscopic guidance and with theassistance of the images from the venogram, 2 separate venipunctures weremade using micropuncture and modified Seldinger technique. These wereperformed in the extrathoracic portion of the subclavian vein. Guidewireswere passed and two peel-away sheaths were placed, and used to advanceleads into the circulation. Using fluoroscopic guidance, the leads were positioned. The RV lead wasadvanced to the RV/outflow tract. Ventricular ectopy was recorded. Imageswere taken in RAMOS and BANGLADESHI views to ensure appropriate lead placement. Thelead tip was subsequently positioned on the apical septum. Adequatesensing and pacing parameters were found, and no diaphragmatic stimulationwas seen with high-output pacing. The newly placed RV lead was placed with a backup pacing rate of VVI at 40bpm. At this time, the patient was underwent a synchronized cardioversionat 300 J x 1. Resulting rhythm showed significant sinus pause requiringbrief period of ventricular pacing, followed by sinus rhythm withfirst-degree AV block. Next, the right atrial lead was positioned in the right atrial appendage.Adequate sensing and pacing parameters were found, and no diaphragmaticstimulation was seen with high-output pacing. Both sheaths were split, andthe leads were secured to the fascia with Ethibond ties. The pocket was flushed with antibiotic solution and hemostasis wasassured. Surgicel was applied. The generator was connected to the leadsand placed inside the pocket. The wound was closed with 3 running layersof absorbable suture, and steripstrips were applied Following the procedure, the patient was taken to the recovery area instable condition. A chest x-ray was obtained in the holding area. Lead parameters and device programming: -RA Lead 5076 (#[id number] ): Sensing 5 mV, Pacing threshold 0.5 V at 0.4ms, Imp 494 Ohm -RV Lead 5076 (#[id number] ): Sensing 11 mV, Pacing threshold 1.0 V at 0.4ms, Imp 1045 Ohm -Device: Medtronic [place] XT DR MRI W1DR01 pacemaker (#[id number] ),programmed AAIR<==>DDDR 60-130 Conclusions: Successful placement of a dual-chamber pacemaker Successful synchronized cardioversion Subclavian venography Recommendations: Discharge later this evening if discharge parameters are met. Portable chest x-ray in holding area. Continue Eliquis 5 mg twice daily uninterrupted Follow-up will be arranged in our office 7-10 days post-discharge Joel Smith MD Clinical Cardiac Proposal Analyst Joel Smith MD CUP EP ORDERABLES Izzy perri Result * EKG 12-LEAD (01/24/2025 11:18 AM CDT) 01/24/2025 11:1 8 AM CDT Narrative INTERFACE SYSTEM - 01/24/2025 1:24 [place] [address] Test Date: 2025-01-24 Pat Name: JASON DAIGLE Department: 60 Room: CCL PRE PO CCL PRE PO Gender: Male [employer]: : 1945 Requested By: JOEL DIEGO Order Number: [id number] Reading MD: Lamonte Valero Measurements Intervals [place] Rate: 78 P: 0 FL: 0 QRS: -35 QRSD: 134 T: 50 QT: 370 QTc: 421 Interpretive Statements Atrial fibrillation Right bundle branch block Low voltage Nonspecific ST-T changes No previous ECG available for comparison Electronically Signed On 01-24-2025 13:24:23 CDT by Lamonte Valero Procedure Note Lamonte Valero MD - 01/24/2025 [place] [address] Test Date: 2025-01-24 Pat Name: JASON DAIGLE Department: 60 Room: [facility] PRE PO CCL PRE PO Gender: Male [employer]: : 1945 Requested By: JOEL HINOJOSA Order Number: [id number] Reading : Lamonte Valero Measurements Intervals [place] Rate: 78 P: 0 FL: 0 QRS: -35 QRSD: 134 T: 50 QT: 370 QTc: 421 Interpretive Statements Atrial fibrillation Right bundle branch block Low voltage Nonspecific ST-T changes No previous ECG available for comparison Electronically Signed On 01-24-2025 13:24:23 CDT by Lamonte Valero us Joel Smith MD ECG ORDERABLES Final Result INTERFACE SYSTEM Refer to clinic/hospital department * (ABNORMAL) CBC WITH DIFFERENTIAL (01/17/2025 12:39 PM CDT) WBC 9.5 3.8 - 10.8 Thousand/u L [facility] RBC 5.09 4.20 - 5.80 Million/uL [facility] HEMOGLOBIN 13.6 13.2 - 17.1 g/dL [facility] HEMATOCRIT 44.7 38.5 - 50.0 % [facility] MCV 87.8 80.0 - 100.0 fL [facility] MCH 26.7(L) 27.0 - 33.0 pg [facility] MCHC 30.4(L) 32.0 - 36.0 g/dL [facility] Comment: For adults, a slight decrease in the calculated MCHC value (in the range of 30 to 32 g/dL) is most likely not clinically significant; however, it should be interpreted with caution in correlation with other red cell parameters and the patient's clinical condition. RDW 19.4(H) 11.0 - 15.0 % [facility] PLATELETS 346 140 - 400 Thousand/u L [facility] MPV 9.9 7.5 - 12.5 fL [facility] NEUTROPHIL ABSOLUTE 6,641 1,500 - 7,800 cells/uL [facility] LYMPHOCYTE ABSOLUTE 2,024 850 - 3,900 cells/uL [facility] MONOCYTE ABSOLUTE 646 200 - 950 cells/uL [facility] EOSINOPHIL ABSOLUTE 114 15 - 500 cells/uL [facility] BASOPHILS ABSOLUTE 76 0 - 200 cells/uL [facility] NEUTROPHIL 69.9 % [facility] LYMPHOCYTES 21.3 % [facility] MONOCYTE 6.8 % [facility] EOSINOPHILS 1.2 % [facility] BASOPHILS 0.8 % [facility] Comment: Test Performed at: [facility] [id number] [address] [address] Anant Whiteside MD Blood 01/17/2025 12:3 9 PM CDT 01/17/2025 12:39 PM CDT Joel Smith MD HEMATOLOGY ORDERABLES Final Result [facility] [phone] [facility] [address] [place] [address] * (ABNORMAL) BASIC METABOLIC PANEL (01/17/2025 12:39 PM CDT) GLUCOSE 104(H) 65 - 99 mg/dL [facility] Comment: Fasting reference interval For someone without known diabetes, a glucose value between 100 and 125 mg/dL is consistent with prediabetes and should be confirmed with a follow-up test. BUN 13 7 - 25 mg/dL [facility] CREATININE 1.60(H) 0.70 - 1.22 mg/dL [facility] GFR 43(L) > OR = 60 mL/min/1.7 3m2 [facility] BUN/CREAT RATIO 8 6 - 22 (calc) [facility] SODIUM 140 135 - 146 mmol/L [facility] POTASSIUM 4.3 3.5 - 5.3 mmol/L [facility] CHLORIDE 102 98 - 110 mmol/L [facility] CO2 30 20 - 32 mmol/L [facility] CALCIUM 9.4 8.6 - 10.3 mg/dL [facility] Comment: Test Performed at: [facility] [address] Anant Whiteside MD Blood 01/17/2025 12:3 9 PM CDT 01/17/2025 12:39 PM CDT us Joel Smith MD CHEMISTRY ORDERABLES F inal Result Performing Organization Address City/[facility] Co de Phone Number [facility] [phone] [facility] [address] from Last 3 Months Insurance [employer] MEDICARE PART A AND B FOR LIFE Care Teams Wind Tunnel Engineer Relationship Specialty Start Date End Date Aj Tejeda MD [address] [facility] [address] [place] [address] PCP - General Family Practice 12/18/24
--- OUTSIDE RECORDS SUMMARY | 2025-04-16 13:03 | XMS_ITS | Encounter Summary ---
Author Organization [facility] Healthcare Address [address] [place] [address] Care Team Providers Care Supervisor Car And Yard Name Role Phone Aj Tejeda MD Primary Care Provider Encounter Details Date Type Department Care Team (Late st Contact Info) Description 10/12/2024 Orders Only [facility] [place] [place] Health Information Management [address] [place] [id number] Scanning, Provider Social History Tobacco Use Types Packs/Day Years Used Date Smoking Tobacco: Former Cigarettes Q uit: 1952 Smokeless Tobacco: Never Alcohol Use Standard Drinks/Week [...] on file Legal Sex Male 11:32 PM PILOT [employer]AM [employer]AC[employer] Gender Identity Male 04/01/2020 9:43 AM CDT [...] as needed documented as of this encounter Procedures Procedure Name Priority Date/Time Associated Diagnosis Comments SCAN - LABS 10/12/2024 documented in this encounter Results * SCAN - LABS (10/12/2024) Provider Scanning Final Result documented in this encounter Visit Diagnoses Not on filedocumented in this encounter Care Teams Supervisor Car And Yard Relationship Specialty Start Date End Date Aj Tejeda MD [address] [facility] [address] [place] [address] PCP - General 10/06/18 documented as of this encounter
--- OUTSIDE RECORDS SUMMARY | 2025-04-16 13:03 | XMS_ITS | Encounter Summary ---
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 Gender Identity Male 04/01/2020 9:43 AM CDT [...] Priority Date/Time Associated Diagnosis Comments SCAN - RADIOLOGY/IMAGING 10/09/2024 CARDIOLOGY DOCUMENT SCAN 10/09/2024 documented in this encounter Results * SCAN - RADIOLOGY/IMAGING (10/09/2024) Anatomical Region Laterality Modality Other us Provider Scanning Final Result * Cardiology Document Scan (10/09/2024) Anatomical Region Laterality Modality Other us Provider Scanning CV CARDIAC SERVICES PROCEDURES Final Result documented in this encounter Visit Diagnoses Not on filedocumented in this encounter Care Teams Fish Cleaner Relationship Specialty Start Date End Date Aj Tejeda MD [address] [facility] [address] [place] [address] PCP - General 10/06/18 documented as of this encounter
[2025-04-16 13:06] LABS: Alanine Aminotransferase 19 U/L (6-50); Albumin Level 4.0 g/dL (3.5-5.1); Alkaline Phosphatase 65 U/L (38-126); Anion Gap 7 mmol/L (4-12); Aspartate Amino Transferase 25 U/L (17-59); Bilirubin,Total 0.4 mg/dL (0.2-1.3); Blood Urea Nitrogen 13 mg/dL (9-20); Calcium 10.7 mg/dL (8.4-10.2); Carbon Dioxide 28 mmol/L (22-30); Chloride 105 mmol/L (98-107); Estimated Glomerular Filt Rate 48; Glucose 103 mg/dL (65-110); Potassium 3.6 mmol/L (3.4-5.0); Sodium 140 mmol/L (137-145); Total Protein 7.0 g/dL (6.3-8.2)
== END 2025-04-16 12:07 | disposition home or self-care (01) ==
PROVIDERS: PCP Family Medicine
DX: N18.30 Chronic kidney disease, stage 3 unspecified (principal)
CPT/HCPCS: 36415; 80053

== ENCOUNTER 2025-04-25 12:44 | Outpatient (CLI) | payer MEDICARE, OTHER, SELFPAY ==
--- OUTSIDE RECORDS SUMMARY | 2025-04-25 12:58 | XMS_ITS | Continuity of Care Document ---
Author Name [facility] Organization [facility] Care Team Providers Care Boom Boss Name Role Phone [facility] Unavailable Unavailable Problems Combined list of problems from Department of [facility] and Veterans Affairs facilities. It does not include entries that were removed or entered in error. 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 [facility] Coronary artery disease Active Condition [facility] Edema Active Condition [facility] Elevated blood-pressure reading without diagnosis of hypertension (SNOMED CT 428997051) Active Condition [facility] Exposure to potentially hazardous substance (SCT [id number]) Active Condition Dec 06 5 Entered By: MARELY GAYTAN Comment: Entered automatically through IRENE Problem List documentation program [facility] Family history of cancer of colon Active Condition [facility] Family history of prostate cancer Active Condition [facility] Hyperlipidemia Active Condition [facility] Neuropathy Active Condition [facility] 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 [facility] Laboratory Studies Active Condition [facility] routine history and physical adult (18 - 64 yrs) Active Condition wnl exam, discussed lifestyle changes, diet, exercise, increase water intake and f/u plan for three month eval. Pt understands. [facility] hearing loss Active Condition med tri al - due to pruritis, pt to have hearing eval and [facility]. 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 Consult for General Surgery entered. [facility] visit for: laboratory Active Condition [facility] arthritis Active Condition [facility] Patient Education Active Condition Di scussed the importance of getting completely tobacco-free as soon as possible. Reminded him that he only has one more prescription of Chantix coming to him. Discussed avoiding drinking at the [employer] for some time. His term off office ends Jan. [facility] nicotine dependence Active Condition Refill for Chantix. 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 Diagnosis: ICD-10-CM Z02.9 Encounter for administrative examinations, unspecified Active Diagnosis [facility] Diagnosis: ICD-10-CM Z77.29 Contact with and exposure to other hazardous substances Active Diagnosis [facility] Diagnosis: ICD-10-CM E78.5 Hyperlipidemia, unspecified Active Diagnosis [facility] Medications Combined list of outpatient medications [...] ATORY (INHAL ATION) ACTIVE Vero JONES 2024 [facility] ESPERANZA Garcia AMIODARONE HCL (PACERONE) 200MG TAB TAKE ONE-HALF TABLET BY MOUTH ONCE A DAY ORAL ACTIVE LECTURE,Vero Cannon 2024 [facility] JOSELYNISIO Jose APIXABAN 5MG TAB TAKE ONE TABLET BY MOUTH TWICE A DAY ORAL ACTIVE LECTURE,Vero Cannon 2024 [facility] DIVIS[facility] N ASCORBIC ACID 500MG TAB TAKE ONE TABLET BY MOUTH ONCE A DAY ORAL ACTIVE Nadine GREENE 2012 [facility] CHOLECALCIF KELLY (LOW DOSE VIT D) - (OTC) TAB TAKE BY MOUTH ONCE A DAY ORAL ACTIVE LECTURE,Vero Cannon 2024 [facility] ESPERANZA N CYCLOSPORIN E (cyclospori ne), 0.05 %, DROPERETTE, OPHTHALMIC, APOTEX BECKY, 58 ea. VIAL Cancele d [id number] : 2023 0 Pharmac y Data Transac tion Service Facilit y ELIQUIS (APIXABAN), 5 MG, TABLET, ORAL, [facility] , 60 ea. BOTTLE Active [id number] 2023 90 Pharmac y Data Transac tion Service Facilit y FENOFIBRATE 48MG TAB TAKE ONE TABLET BY MOUTH ONCE A DAY ORAL ACTIVE LECTURE,Vero Cannon 2024 [facility] N FISH OIL 1000MG (500MG DHA/EPA) CAP,ORAL TAKE 1 CAPSULE BY MOUTH TWICE A DAY ORAL ACTIVE Nadine GREENE 2012 [facility] FUROSEMIDE 20MG TAB TAKE ONE TABLET BY MOUTH EVERY MORNING ORAL ACTIVE LECTURE,Vero Cannon 2024 [facility] JOSELYNISIO N GABAPENTIN 300MG CAP TAKE 2 CAPSULES BY MOUTH AT BEDTIME ORAL ACTIVE SRUTHI CIFUENTES 2013 [facility] OLODATEROL 2.5MCG/TIOT ROPIUM 2.5MCG/ACTU AT [facility],ORAL,6 0D,4GM INHALE 2 PUFFS BY ORAL INHALATI ON ONCE A DAY RESPIR ATORY (INHAL ATION) ACTIVE LECTURE,Vero Cannon 2024 [facility] N POTASSIUM CHLORIDE 20MEQ TAB,SA (DISPERSIBL E) TAKE ONE-HALF TABLET BY MOUTH ONCE A DAY ORAL ACTIVE Vero JONES 2024 [facility] Allergies, Adverse Reactions, Alerts Combined list of allergies from Department of Defense and Veterans Affairs facilities. It does not include entries that were removed or entered in error. Substance Category Reaction Severity Reaction type Status Date Reported Comments Source [facility](O PI[facility] Drug allergy (disorder) Delirium active [address] [place] [address] Division MORPHINE Propensity to adverse reactions to drug (finding) Delirium active [address] [place] [address] DIVISION Immunizations Combined list of available immunizations from the Department of Defense and Veterans Affairs facilities. Immunization Series Date Given Administered By Site Reaction Lot Number CVX Code Drug Slate Handler Status Comments Source influenza, high-dose, quadrivalent 2021 [...] CONJUGATE PCV 13 2014 133 complet ed [facility] INFLUENZA, UNSPECIFIED FORMULATION 2013 88 complet ed [facility] N INFLUENZA, UNSPECIFIED FORMULATION 2012 88 complet ed [facility] N INFLUENZA, UNSPECIFIED FORMULATION 2012 88 complet ed [facility] N ZOSTER LIVE 2012 121 complet ed [facility] N PNEUMOCOCCAL, UNSPECIFIED FORMULATION 2012 109 complet ed [facility] TDAP 2011 115 complet ed [facility] Results Combined list of recent [...] Dec 04, 2024 08:48 AM Reporting Lab: [address] [address] Performing Lab: [address] [phone] [place] [address] URINALYS IS (STL-PB) BILIRUBIN. TOTAL [PRESENCE] IN URINE BY TEST STRIP Negative mg/dL 12/05 Specimen Type: URINE No comment entered. Ordering Provider: MAUREEN AGUILLON Report Released Date/Time: Dec 04, 2024 08:48 AM Reporting Lab: [address] [address] Performing Lab: [address] [address] [facility] URINALYS IS (STL-PB) PH OF URINE BY TEST STRIP 6.0 5.0 - 8.0 12/05 Specimen Type: URINE No comment entered. Ordering Provider: MAUREEN AGUILLON Report Released Date/Time: Dec 04, 2024 08:48 AM Reporting Lab: [address] [address] Performing Lab: [address] [address] [facility] URINALYS IS (STL-PB) APPEARANCE OF URINE Clear 12/05 Specimen Type: URINE No comment entered. Ordering Provider: MAUREEN AGUILLON Report Released Date/Time: Dec 04, 2024 08:48 AM Reporting Lab: [address] [address] Performing Lab: [address] [address] [facility] URINALYS IS (STL-PB) NITRITE [PRESENCE] IN URINE BY TEST STRIP Negative mg/dL 12/05 Specimen Type: URINE No comment entered. Ordering Provider: MAUREEN AGUILLON Report Released Date/Time: Dec 04, 2024 08:48 AM Reporting Lab: [place] [phone] Performing Lab: [address] [phone] [place] [address] URINALYS IS (STL-PB) GLUCOSE [MASS/VOLU ME] IN URINE BY TEST STRIP Normalmg /dL 12/05 Specimen Type: URINE No comment entered. Ordering Provider: MAUREEN AGUILLON Report Released Date/Time: Dec 04, 2024 08:48 AM Reporting Lab: [address] [address] Performing Lab: [address] [address] [facility] URINALYS IS (STL-PB) PROTEIN [MASS/VOLU ME] IN URINE BY TEST STRIP Negative mg/dL 12/05 Specimen Type: URINE No comment entered. Ordering Provider: MAUREEN AGUILLON Report Released Date/Time: Dec 04, 2024 08:48 AM Reporting Lab: [address] [address] Performing Lab: [address] [address] [facility] URINALYS IS (STL-PB) URN.UROBIL INOGEN Normalmg /dL 12/05 Specimen Type: URINE No comment entered. Ordering Provider: MAUREEN AGUILLON Report Released Date/Time: Dec 04, 2024 08:48 AM Reporting Lab: [place] [phone] Performing Lab: [facility] [address] [place] [phone] [facility] URINALYS IS (STL-PB) HEMOGLOBIN [MASS/VOLU ME] IN URINE BY TEST STRIP Negative mg/dL 12/05 Specimen Type: URINE No comment entered. Ordering Provider: MAUREEN AGUILLON Report Released Date/Time: Dec 04, 2024 08:48 AM Reporting Lab: [place] [phone] Performing Lab: [place] [phone] URINALYS IS (STL-PB) KETONES [MASS/VOLU ME] IN URINE BY TEST STRIP Negative mg/dL 12/05 Specimen Type: URINE No comment entered. Ordering Provider: MAUREEN AGUILLON Report Released Date/Time: Dec 04, 2024 08:48 AM Reporting Lab: [place] [phone] Performing Lab: [address] [phone] URINALYS IS (STL-PB) URN.LEUK.E ST. Negative mg/dL 12/05 Specimen Type: URINE No comment entered. Ordering Provider: MAUREEN AGUILLON Report Released Date/Time: Dec 04, 2024 08:48 AM Reporting Lab: [place] [phone] Performing Lab: [address] [address] [facility] URINALYS IS (STL-PB) SPECIFIC GRAVITY OF URINE 1.012 12/05 Specimen Type: URINE No comment entered. Ordering Provider: MAUREEN AGUILLON Report Released Date/Time: Dec 04, 2024 08:48 AM Reporting Lab: [place] [phone] Performing Lab: [facility] [address] [place] [phone] [facility] CBC LEUKOCYTES [#/VOLUME] IN BLOOD BY AUTOMATED COUNT 11.5 10*3/uL 3.6 - 11.2 12/05 H Specimen Type: BLOOD No comment entered. Ordering Provider: MAUREEN AGUILLON Report Released Date/Time: Dec 04, 2024 08:48 AM Reporting Lab: [place] [phone] Performing Lab: [address] [phone] [address] CBC ERYTHROCYT ES [#/VOLUME] IN BLOOD BY AUTOMATED COUNT 5.55 10*6/uL 4.10 - 5.70 12/05 Specimen Type: BLOOD No comment entered. Ordering Provider: MAUREEN AGUILLON Report Released Date/Time: Dec 04, 2024 08:48 AM Reporting Lab: [address] [address] Performing Lab: [address] [phone] CBC HEMOGLOBIN [MASS/VOLU ME] IN BLOOD 13.4 g/dL 13.1 - 16.8 12/05 Specimen Type: BLOOD No comment entered. Ordering Provider: MAUREEN AGUILLON Report Released Date/Time: Dec 04, 2024 08:48 AM Reporting Lab: [address] [address] Performing Lab: [address] [address] [facility] CBC HEMATOCRIT [VOLUME FRACTION] OF BLOOD 46.1 38.2 - 48.4 12/05 Specimen Type: BLOOD No comment entered. Ordering Provider: MAUREEN AGUILLON Report Released Date/Time: Dec 04, 2024 08:48 AM Reporting Lab: [place] [phone] Performing Lab: [address] [phone] [place] [address] CBC MCV [ENTITIC VOLUME] BY AUTOMATED COUNT 83.1 fL 80.0 - 100.0 12/05 Specimen Type: BLOOD No comment entered. Ordering Provider: MAUREEN AGUILLON Report Released Date/Time: Dec 04, 2024 08:48 AM Reporting Lab: [place] [address] Performing Lab: [phone] CBC MCH [ENTITIC MASS] BY AUTOMATED COUNT 24.1 pg 27.0 - 34.0 12/05 L Specimen Type: BLOOD No comment entered. Ordering Provider: MAUREEN AGUILLON Report Released Date/Time: Dec 04, 2024 08:48 AM Reporting Lab: [place] [address] Performing Lab: [address] [phone] [address] CBC MCHC [MASS/VOLU ME] BY AUTOMATED COUNT 29.1 g/dL 33.0 - 36.0 12/05 L Specimen Type: BLOOD No comment entered. Ordering Provider: MAUREEN AGUILLON Report Released Date/Time: Dec 04, 2024 08:48 AM Reporting Lab: [place] [address] Performing Lab: [address] [phone] CBC PLATELETS [#/VOLUME] IN BLOOD BY AUTOMATED COUNT 413 10*3/uL 150 - 400 12/05 H Specimen Type: BLOOD No comment entered. Ordering Provider: MAUREEN AGUILLON Report Released Date/Time: Dec 04, 2024 08:48 AM Reporting Lab: [place] [phone] Performing Lab: [facility] [address] [place] [phone] [facility] CBC PLATELET MEAN VOLUME [ENTITIC VOLUME] IN BLOOD BY AUTOMATED COUNT 9.2 fL 7.5 - 11.2 12/05 Specimen Type: BLOOD No comment entered. Ordering Provider: MAUREEN AGUILLON Report Released Date/Time: Dec 04, 2024 08:48 AM Reporting Lab: [place] [address] Performing Lab: [place] [phone] CBC ERYTHROCYT E DISTRIBUTI ON WIDTH [RATIO] BY AUTOMATED COUNT 20.1 11.8 - 15.1 12/05 H Specimen Type: BLOOD No comment entered. Ordering Provider: MAUREEN AGUILLON Report Released Date/Time: Dec 04, 2024 08:48 AM Reporting Lab: [place] [phone] Performing Lab: [address] [address] [facility] CBC LYMPHOCYTE S/100 LEUKOCYTES IN BLOOD BY AUTOMATED COUNT 23 12/05 Specimen Type: BLOOD No comment entered. Ordering Provider: MAUREEN AGUILLON Report Released Date/Time: Dec 04, 2024 08:48 AM Reporting Lab: [place] [phone] Performing Lab: [place] [phone] [facility] CBC MONOCYTES/ 100 LEUKOCYTES IN BLOOD BY AUTOMATED COUNT 8 12/05 Specimen Type: BLOOD No comment entered. Ordering Provider: MAUREEN AGUILLON Report Released Date/Time: Dec 04, 2024 08:48 AM Reporting Lab: [facility] [address] [facility] [address] Performing Lab: [facility] [address] [address] [facility] CBC NEUTROPHIL S/100 LEUKOCYTES IN BLOOD BY AUTOMATED COUNT 67 12/05 Specimen Type: BLOOD No comment entered. Ordering Provider: MAUREEN AGUILLON Report Released Date/Time: Dec 04, 2024 08:48 AM Reporting Lab: [facility] [address] [address] Performing Lab: [place] [address] [address] [facility] [address] [facility] CBC EOSINOPHIL S/100 LEUKOCYTES IN BLOOD BY AUTOMATED COUNT 1 12/05 Specimen Type: BLOOD No comment entered. Ordering Provider: MAUREEN AGUILLON Report Released Date/Time: Dec 04, 2024 08:48 AM Reporting Lab: [facility] [address] [facility] [address] Performing Lab: [place] [address] [address] [facility] [address] [facility] CBC BASOPHILS/ 100 LEUKOCYTES IN BLOOD BY AUTOMATED COUNT 1 12/05 Specimen Type: BLOOD No comment entered. Ordering Provider: MAUREEN AGUILLON Report Released Date/Time: Dec 04, 2024 08:48 AM Reporting Lab: [place] [address] [facility] [address] Performing Lab: [facility] [address] [address] [facility] CBC LYMPHOCYTE S [#/VOLUME] IN BLOOD BY AUTOMATED COUNT 2.62 10*3/uL 0.77 - 4.50 12/05 Specimen Type: BLOOD No comment entered. Ordering Provider: MAUREEN AGUILLON Report Released Date/Time: Dec 04, 2024 08:48 AM Reporting Lab: [place] [address] [facility] [address] Performing Lab: [address] [address] [facility] CBC MONOCYTES [#/VOLUME] IN BLOOD BY AUTOMATED COUNT 0.87 10*3/uL 0.19 - 0.80 12/05 H Specimen Type: BLOOD No comment entered. Ordering Provider: MAUREEN AGUILLON Report Released Date/Time: Dec 04, 2024 08:48 AM Reporting Lab: [address] [address] Performing Lab: [address] [address] [facility] CBC NEUTROPHIL S [#/VOLUME] IN BLOOD BY AUTOMATED COUNT 7.70 10*3/uL 2.10 - 8.00 12/05 Specimen Type: BLOOD No comment entered. Ordering Provider: MAUREEN AGUILLON Report Released Date/Time: Dec 04, 2024 08:48 AM Reporting Lab: [address] [address] Performing Lab: [address] [address] [facility] CBC EOSINOPHIL S [#/VOLUME] IN BLOOD BY AUTOMATED COUNT 0.12 10*3/uL 0.00 - 0.60 12/05 Specimen Type: BLOOD No comment entered. Ordering Provider: MAUREEN AGUILLON Report Released Date/Time: Dec 04, 2024 08:48 AM Reporting Lab: [address] [address] Performing Lab: [address] [address] [facility] CBC BASOPHILS [#/VOLUME] IN BLOOD BY AUTOMATED COUNT 0.09 10*3/uL 0.00 - 0.20 12/05 Specimen Type: BLOOD No comment entered. Ordering Provider: MAUREEN AGUILLON Report Released Date/Time: Dec 04, 2024 08:48 AM Reporting Lab: [address] [place] [address] Performing Lab: [address] [address] [facility] COMPREHE NSIVE METABOLI C PANEL CREATININE [MASS/VOLU ME] IN SERUM OR PLASMA 1.76 mg/dL 0.7 - 1.3 12/05 H Specimen Type: PLASMA Comment: LDL calculation invalid when Triglycerid e exceeds 250 mg/dl No hemolysis noted. Ordering Provider: MAUREEN AGUILLON Report Released Date/Time: Dec 04, 2024 08:48 AM Reporting Lab: [address] [address] Performing Lab: [address] [address] [facility] COMPREHE NSIVE METABOLI C PANEL UREA NITROGEN [MASS/VOLU ME] IN SERUM OR PLASMA 21.5 mg/dL 9.0 - 25.0 12/05 Specimen Type: PLASMA Comment: LDL calculation invalid when Triglycerid e exceeds 250 mg/dl No hemolysis noted. Ordering Provider: MAUREEN AGUILLON Report Released Date/Time: Dec 04, 2024 08:48 AM Reporting Lab: [address] [address] Performing Lab: [place] [address] [facility] [address] [facility] COMPREHE NSIVE METABOLI C PANEL GLUCOSE [MASS/VOLU ME] IN SERUM OR PLASMA 96 mg/dL 72 - 99 12/05 Specimen Type: PLASMA Comment: LDL calculation invalid when Triglycerid e exceeds 250 mg/dl No hemolysis noted. Ordering Provider: MAUREEN AGUILLON Report Released Date/Time: Dec 04, 2024 08:48 AM Reporting Lab: [address] [address] Performing Lab: [address] [address] [facility] COMPREHE NSIVE METABOLI C PANEL SODIUM [MOLES/VOL UME] IN SERUM OR PLASMA 138 meq/L 136 - 145 12/05 Specimen Type: PLASMA Comment: LDL calculation invalid when Triglycerid e exceeds 250 mg/dl No hemolysis noted. Ordering Provider: MAUREEN AGUILLON Report Released Date/Time: Dec 04, 2024 08:48 AM Reporting Lab: [facility] [address] [facility] [address] Performing Lab: [facility] [address] [place] [phone] DIVISION COMPREHE NSIVE METABOLI C PANEL POTASSIUM [MOLES/VOL UME] IN SERUM OR PLASMA 4.5 meq/L 3.5 - 5 12/05 Specimen Type: PLASMA Comment: LDL calculation invalid when Triglycerid e exceeds 250 mg/dl No hemolysis noted. Ordering Provider: MAUREEN AGUILLON Report Released Date/Time: Dec 04, 2024 08:48 AM Reporting Lab: [facility] [address] [place] [phone] Performing Lab: [facility] [address] [facility] [phone] [place] [address] DIVISION COMPREHE NSIVE METABOLI C PANEL CHLORIDE [MOLES/VOL UME] IN SERUM OR PLASMA 103 meq/L 98 - 107 12/05 Specimen Type: PLASMA Comment: LDL calculation invalid when Triglycerid e exceeds 250 mg/dl No hemolysis noted. Ordering Provider: MAUREEN AGUILLON Report Released Date/Time: Dec 04, 2024 08:48 AM Reporting Lab: [facility] [address] [address] Performing Lab: [facility] [address] [facility] [phone] [place] [address] DIVISION COMPREHE NSIVE METABOLI C PANEL CARBON DIOXIDE, TOTAL [MOLES/VOL UME] IN SERUM OR PLASMA 29 meq/L 22 - 31 12/05 Specimen Type: PLASMA Comment: LDL calculation invalid when Triglycerid e exceeds 250 mg/dl No hemolysis noted. Ordering Provider: MAUREEN AGUILLON Report Released Date/Time: Dec 04, 2024 08:48 AM Reporting Lab: [facility] [address] [address] Performing Lab: [facility] [address] [address] [address] [facility] COMPREHE NSIVE METABOLI C PANEL CALCIUM [MASS/VOLU ME] IN SERUM OR PLASMA 10.1 mg/dL 8.4 - 10.4 12/05 Specimen Type: PLASMA Comment: LDL calculation invalid when Triglycerid e exceeds 250 mg/dl No hemolysis noted. Ordering Provider: MAUREEN AGUILLON Report Released Date/Time: Dec 04, 2024 08:48 AM Reporting Lab: [facility] [address] [place] [address] Performing Lab: [place] [address] [facility] [address] [facility] COMPREHE NSIVE METABOLI C PANEL PROTEIN [MASS/VOLU ME] IN SERUM OR PLASMA 7.4 g/dL 6 - 8.6 12/05 Specimen Type: PLASMA Comment: LDL calculation invalid when Triglycerid e exceeds 250 mg/dl No hemolysis noted. Ordering Provider: MAUREEN AGUILLON Report Released Date/Time: Dec 04, 2024 08:48 AM Reporting Lab: [facility] [address] [address] Performing Lab: [facility] [address] [address] [facility] COMPREHE NSIVE METABOLI C PANEL ALBUMIN [MASS/VOLU ME] IN SERUM OR PLASMA 4.2 g/dL 3.4 - 5 12/05 Specimen Type: PLASMA Comment: LDL calculation invalid when Triglycerid e exceeds 250 mg/dl No hemolysis noted. Ordering Provider: MAUREEN AGUILLON Report Released Date/Time: Dec 04, 2024 08:48 AM Reporting Lab: [facility] [address] [address] Performing Lab: [facility] [address] [phone] [place] [address] COMPREHE NSIVE METABOLI C PANEL BILIRUBIN. TOTAL [MASS/VOLU ME] IN SERUM OR PLASMA 0.4 mg/dL 0.2 - 1.2 12/05 Specimen Type: PLASMA Comment: LDL calculation invalid when Triglycerid e exceeds 250 mg/dl No hemolysis noted. Ordering Provider: MAUREEN AGUILLON Report Released Date/Time: Dec 04, 2024 08:48 AM Reporting Lab: [place] [address] Performing Lab: [address] COMPREHE NSIVE METABOLI C PANEL ALKALINE PHOSPHATAS E [ENZYMATIC ACTIVITY/V OLUME] IN SERUM OR PLASMA 72 U/L 40 - 150 12/05 Specimen Type: PLASMA Comment: LDL calculation invalid when Triglycerid e exceeds 250 mg/dl No hemolysis noted. Ordering Provider: MAUREEN AGUILLON Report Released Date/Time: Dec 04, 2024 08:48 AM Reporting Lab: [place] [address] Performing Lab: [place] [phone] COMPREHE NSIVE METABOLI C PANEL ASPARTATE AMINOTRANS FERASE [ENZYMATIC ACTIVITY/V OLUME] IN SERUM OR PLASMA 18 U/L 5 - 34 12/05 Specimen Type: PLASMA Comment: LDL calculation invalid when Triglycerid e exceeds 250 mg/dl No hemolysis noted. Ordering Provider: MAUREEN AGUILLON Report Released Date/Time: Dec 04, 2024 08:48 AM Reporting Lab: [place] [id number] Performing Lab: [place] [id number] COMPREHE NSIVE METABOLI C PANEL ALANINE AMINOTRANS FERASE [ENZYMATIC ACTIVITY/V OLUME] IN SERUM OR PLASMA 21 U/L 8 - 40 12/05 Specimen Type: PLASMA Comment: LDL calculation invalid when Triglycerid e exceeds 250 mg/dl No hemolysis noted. Ordering Provider: MAUREEN AGUILLON Report Released Date/Time: Dec 04, 2024 08:48 AM Reporting Lab: [place] [phone] Performing Lab: [place] [id number] [place] [address] COMPREHE NSIVE METABOLI C PANEL GLOMERULAR FILTRATION RATE/1.73 SQ M.PREDICTE D [VOLUME RATE/AREA] IN SERUM, PLASMA OR BLOOD BY CREATININE -BASED FORMULA (CKD-EPI 2020) 38.4 60 12/05 Specimen Type: PLASMA Comment: LDL calculation invalid when Triglycerid e exceeds 250 mg/dl No hemolysis noted. Ordering Provider: MAUREEN AGUILLON Report Released Date/Time: Dec 04, 2024 08:48 AM Reporting Lab: [place] [phone] Performing Lab: [place] [id number] [place] [address] LIPID PANEL (STL) CHOLESTERO L [MASS/VOLU ME] IN SERUM OR PLASMA 209 mg/dL 0 - 200 12/05 H Specimen Type: PLASMA Comment: LDL calculation invalid when Triglycerid e exceeds 250 mg/dl No hemolysis noted. Ordering Provider: MAUREEN AGUILLON Report Released Date/Time: Dec 04, 2024 08:48 AM Reporting Lab: [place] [phone] Performing Lab: [place] [id number] [place] [address] LIPID PANEL (STL) TRIGLYCERI DE [MASS/VOLU ME] IN SERUM OR PLASMA 296 mg/dL 0 - 150 12/05 H Specimen Type: PLASMA Comment: LDL calculation invalid when Triglycerid e exceeds 250 mg/dl No hemolysis noted. Ordering Provider: MAUREEN AGUILLON Report Released Date/Time: Dec 04, 2024 08:48 AM Reporting Lab: [address] [place] [address] Performing Lab: [facility] [address] [address] [facility] LIPID PANEL (STL) CHOLESTERO L IN LDL [MASS/VOLU ME] IN SERUM OR PLASMA BY DIRECT ASSAY 151 mg/dL 100 12/05 Specimen Type: PLASMA Comment: LDL calculation invalid when Triglycerid e exceeds 250 mg/dl No hemolysis noted. Ordering Provider: MAUREEN AGUILLON Report Released Date/Time: Dec 04, 2024 08:48 AM Reporting Lab: [place] [address] [address] [facility] [address] Performing Lab: [place] [address] [facility] [address] [facility] LIPID PANEL (STL) CHOLESTERO L IN LDL [MASS/VOLU ME] IN SERUM OR PLASMA BY CALCULATIO N commentm g/dL 12/05 Specimen Type: PLASMA Comment: LDL calculation invalid when Triglycerid e exceeds 250 mg/dl No hemolysis noted. Ordering Provider: MAUREEN AGUILLON Report Released Date/Time: Dec 04, 2024 08:48 AM Reporting Lab: [address] [address] Performing Lab: [place] [address] [facility] [address] [facility] LIPID PANEL (STL) CHOLESTERO L IN HDL [MASS/VOLU ME] IN SERUM OR PLASMA 29 mg/dL 40 12/05 L Specimen Type: PLASMA Comment: LDL calculation invalid when Triglycerid e exceeds 250 mg/dl No hemolysis noted. Ordering Provider: MAUREEN AGUILLON Report Released Date/Time: Dec 04, 2024 08:48 AM Reporting Lab: [place] [address] [facility] [address] Performing Lab: [place] [address] [facility] [address] [facility] HGA1C HEMOGLOBIN A1C/HEMOGL OBIN.TOTAL IN BLOOD 6.2 4.0 - 6.0 12/05 H Specimen Type: BLOOD No comment entered. Ordering Provider: MAUREEN AGUILLON Report Released Date/Time: Dec 04, 2024 08:48 AM Reporting Lab: [place] [address] [address] [place] [address] Performing Lab: [place] [address] HEP C Ab HCV Ab (STL) [...] Dec 04, 2024 08:48 AM Reporting Lab: [place] [address] [place] [address] Performing Lab: [place] [address] PROST. SPECIFIC AG.(PB-S TL) PROSTATE SPECIFIC [...] Dec 04, 2024 08:48 AM Reporting Lab: [place] [address] [place] [address] Performing Lab: [place] [address] TSH W/ REFLEX FT4 (STL) THYROTROPI N [UNITS/VOL UME] IN SERUM OR PLASMA 3.793 u[IU]/mL 0.47 - 5 12/05 Specimen Type: PLASMA No comment entered. Ordering Provider: MAUREEN AGUILLON Report Released Date/Time: Dec 04, 2024 08:48 AM Reporting Lab: [facility] [address] [facility] [address] Performing Lab: [facility] [address] [address] [facility] Vital Signs Combined list of inpatient and outpatient Vital Signs from Department of Defense and Veterans Affairs, ranging from 12 months to all on record, depending upon the facility. Vital Sign Value Date Comments Source SYSTOLIC BLOOD PRESSURE 145 12/05/2024 12:38:48 [facility] DIASTOLIC BLOOD PRESSURE 84 12/05/2024 12:38:48 [facility] PULSE OXIMETRY 97 12/05/2024 12:38:48 [facility] WEIGHT 307.2 12/05/2024 12:38:48 [facility] BMI 41 kg/m2 12/05/2024 12:38:48 [facility] PAIN 6 12/05/2024 12:38:48 [facility] HEIGHT 73 12/05/2024 12:38:48 [facility] TEMPERATURE 98.3 12/05/2024 12:38:48 [facility] PULSE 75 12/05/2024 12:38:48 [facility] RESPIRATION 20 12/05/2024 12:38:48 [facility] SYSTOLIC BLOOD PRESSURE 137 11/29/2024 12:53:56 [facility] DIASTOLIC BLOOD PRESSURE 84 11/29/2024 12:53:56 [facility] PULSE OXIMETRY 97 11/29/2024 12:53:56 [facility] WEIGHT 307.7 11/29/2024 12:53:56 [facility] BMI 41 kg/m2 11/29/2024 12:53:56 [facility] PAIN 0 11/29/2024 12:53:56 [facility] TEMPERATURE 98.2 11/29/2024 12:53:56 [facility] PULSE 83 11/29/2024 12:53:56 [facility] RESPIRATION 16 11/29/2024 12:53:56 [facility] Encounters Combined list of: 1) Encounters from Department of [facility] Affairs facilities going backup to the last 18 months, not all [place] inpatient encounters are included; 2) Encounters from the Department of [facility] facilities going backup to 280 months. Location Location Details Encounter Type Encounter Number Reason For Visit Attending Provider ADM Date DC Date Status Disposition Source [address] [place] [address] Amando [facility] [facility] FHI1) OUTPATIENT [id number] stop smoking CYNDY LINARES P 12/15 Released w/o Limitations [address] [place] [address] Amando [facility]F amily Practic e Non-GME FHI1) [address] [place] [address] Amando [facility] [place] Practice Non-GME FHI1) OUTPATIENT [id number] tobacco cessati on class #1 CYNDY LINARES P 12/16 Released w/o Limitations [address] [place] [address] Amando [facility]F amily Practic e Non-GME FHI1) [address] [place] [address] Amando [facility] Practice Non-GME FHI1) OUTPATIENT [id number] tobacco cessati on NAOMI DC 12/30 Released w/o Limitations [address] [place] [address] Amando [facility]F amily Practic e Non-GME FHI1) [address] [place] [address] Amando [facility]Sco tt [employer] [facility] Tm) OUTPATIENT [id number] tobacco cessati on class #5 HAYDEN CRONIN 01/14 Released w/o Limitations [address] [place] [address] Amando [facility]S cott Flight Medicin e Tm) [address] [place] [address] Amando [facility] Practice Non-GME FHI1) OUTPATIENT [id number] tobacco cessati on follow- up CYNDY LINARES P 02/03 Released w/o Limitations [address] [place] [address] Amando [facility]F amily Practic e Non-GME FHI1) [address] [place] [address] Amando BLANDB ([facility] Practice Non-GME FHI1) OUTPATIENT [id number] fol CYNDY ELIZABETH P 05/30 Released w/o Limitations [address] [place] [address] Amando BALDOB [facility]F amily Practic e Non-GME FHI1) [address] [place] [address] [employer] ([facility] Non-GME FHI1) OUTPATIENT [id number] f/u to labs/EK G needed/ physica l CYNDY LINARES P 06/13 Released w/o Limitations [address] [place] [address] Amando BALDOB ([facility]F amily Practic e Non-GME FHI1) [address] [place] [address] [employer] ([facility]Sco tt [facility] CogniSens Blue) TELE CONSULT [id number] Labs for C-Scope VERONICA JUAREZ 06/[address] [place] [address] Amando BALDOB ([facility]S cott [facility] AuthorlyRES Tm Blue) [address] [place] [address] Amando BALDOB ([facility] Non-GME FHI2) OUTPATIENT [id number] sore throat KULWINDER MACHUCA E 06/22 Released w/o Limitations [address] [place] [address] Amando BALDOB [facility]F amily Practic e Non-GME FHI2) [address] [place] [address] [employer] [facility] Non-GME FHI1) TELE CONSULT [id number] call back - SD Siddiqui am P 06/[address] [place] [address] Amando BALDOB [facility]F amily Practic e Non-GME FHI1) [address] [place] [address] [employer] [facility] Non-GME FHI2) OUTPATIENT [id number] sore throat KULWINDER MACHUCA E 06/27 Released w/o Limitations [address] [place] [address] [employer] [facility]F amily Practic e Non-GME FHI2) [address] [place] [address] [employer] [facility]Sco tt [facility] AuthorlyRES Tm Blue) OUTPATIENT [id number] visit for: screeni ng maligna nt neoplas m RAMESH De Guzman 07/26 Released w/o Limitations [address] [place] [address] [employer] ([facility]S cott [facility] AuthorlyRES Tm Blue) [address] [place] [address] Amando BLANDB [facility]Sco tt [facility] FAMRES Tm Blue) TELE CONSULT [id number] Colonos ocpy results RAMESH [place] 08/[address] [place] [address] Amando BLANDB [facility]S cott [facility] FAMRES Tm Blue) [address] [place] [address] Amando BLANDB [facility]Gen eral Surgery) OUTPATIENT [id number] 3cm colonic polyp BARB PENN 08/17 Released w/o Limitations [address] [place] [address] Amando BLANDB [facility]G eneral Surgery ) [address] [place] [address] Amando BLANDB [facility] [place] Practice Non-GME FHI1) TELE CONSULT [id number] call back - SONNY Andino am 09/[address] [place] [address] Amando BALDOB [facility]F amily Practic e Non-GME FHI1) [address] [place] [address] Amando BALDOB [facility]Gen eral Surgery) OUTPATIENT [id number] f/u-per zaynab Penn KENNETH D 09/14 Released w/o Limitations [address] [place] [address] Amando BLANDB [facility]G eneral Surgery ) [address] [place] [address] Amando BALDOB [facility]Gen eral Surgery) OUTPATIENT [id number] BARB PENN 09/20 Released w/o Limitations [address] [place] [address] Amando BLANDB [facility]G eneral Surgery ) [address] [place] [address] Amando B [facility]Opt ometry) OUTPATIENT [id number] routine eye exam JUDSON BACON 09/21 Released w/o Limitations [address] [place] [address] Amando BALDOB [facility]O ptometr y) [address] [place] [address] Amando BL[employer] [facility] [place] Practice Non-GME FHI2) TELE CONSULT [id number] call back-THERESA Chu am 10/[address] [place] [address] Amando BALDOB [facility]F amily Practic e Non-GME FHI2) [address] [place] [address] Amando B [facility]Gen eral Surgery) OUTPATIENT [id number] fzaynab bravo KENNETH D 10/27 Released w/o Limitations [address] [place] [address] Amando BALDOB [facility]G eneral Surgery ) [address] [place] [address] Amando [facility])(Gen eral Surgery) OUTPATIENT [id number] f/u, BARB Vazquez 01/15 Released w/o Limitations [address] [place] [address] Amando [facility])(G eneral Surgery ) [address] [place] [address] Amando [facility])([facility] Practice Non-GME FHI2) TELE CONSULT [id number] jerri ponce -- SD Siddiqui am P 01/[address] [place] [address] Amando [facility])(F amily Practic e Non-GME FHI2) [address] [place] [address] Amando [facility])([facility] Practice Non-GME FHI1) OUTPATIENT [id number] follow- up colon CA CYNDY LINARES P 02/06 Released w/o Limitations [address] [place] [address] Amando [facility])(F amily Practic e Non-GME FHI1) [address] [place] [address])([facility] Practice Non-GME FHI1) TELE CONSULT [id number] lab results . NOLA SWIFT 03/[address] [place] [address])(F amily Practic e Non-GME FHI1) [facility] Outpatient Encounter [id number] 10/21 [facility] Outpatient Encounter [id number] 11/27 [facility] Outpatient Encounter [id number] MARIA DE JESUS TAVAREZ RRY 11/28 [facility] OFFICE O/P NEW MOD 45 MIN [id number] Diagnos is: ICD-10- CM E78.5 Hyperli pidemia , unspeci fied ME EDSON JONES 11/29 [facility] Encounter [id number] 11/30 [facility] N [facility] OFFICE O/P NEW HI 60 MIN [id number] Diagnos is: ICD-10- CM Z77.29 Contact with and exposur e to other hazardo us substan RADHA Muller LORI Cortez 12/05 [facility] N [facility] Outpatient Encounter [id number] 12/05 [facility] N [facility] Outpatient Encounter [id number] 12/06 [facility] Outpatient Encounter [id number] 12/06 [facility] SYNCH AUDIO-ONLY EST SF 10 [id number] Diagnos is: ICD-10- CM 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 LISA,J UAN 12/19 [facility] OFF/OP EST MAY X REQ PHY/QHP [id number] Diagnos is: ICD-10- CM Z02.9 Encount er for adminis trative examina tions, unspeci fied RAYSHAWN,CY NTHIA A 12/19 [facility] Outpatient Encounter [id number] 12/26 [facility] OFF/OP CONSLTJ NEW/EST HI 55 [id number] Diagnos is: ICD-10- CM 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 LISA,J UAN 01/04 [facility] Outpatient Encounter [id number] 01/27 [facility] Procedures Combined list of: 1) Procedures from Department of [facility] Affairs facilities going back up to thelast 18 months, not all [place] non-surgical procedures are included; 2) All procedures from the Department of [facility] facilities. Procedure Procedure Type Code Date Perfomer Comments Markc e TELE ASSESS & MGT SRV PROV QUAL NONPHYS HLTH CARE PRO TO EST PAT,PARENT,GUARD NOT ORIG REL ASSESS & MGT SRV PROV W/IN PREV 7 DAYS NOR LEAD ASSESS & MGT SRV/PX W/IN NXT 24H/SOON APT; 21-30 MIN MED DIS 8 [facility] POSTOPERATIVE FOLLOW-UP VISIT, NORMALLY INCLUDED IN THE SURGICAL PACKAGE, INDICATE THAT EVALUATION & MANAGEMENT SERVICE WAS PERFORMED DURING A POSTOPERATIVE PERIOD REASON RELATED ORIGINAL PROCEDURE 8 [facility] DETERMINATION OF REFRACTIVE STATE 8 [facility] COLONOSCOPY, FLEXIBLE; WITH BIOPSY, SINGLE OR MULTIPLE 7 DoD Non-Physician Phone Call To Pt/Provider Lengthy (21-30 min) Non-Physician Phone Call To Pt/Provider Lengthy (21-30 min) [id number] NOLA SWIFT [facility] Determination Of Refractive State Determination Of Refractive State 22998 8 JUDSON BACON [facility] Visual Serrano Test Intermediate Examination Visual Serrano Test Intermediate Examination 45111 8 JUDSON BACON [facility] Ophthalmological New Patient Start Comprehensive Care Ophthalmological New Patient Start Comprehensive Care 08129 8 JUDSON BACON [facility] Complete Colonoscopy 00 7 RAMESH ELLINGTON [facility] Diagnostic Colonoscopy Fiberoptic Forceps Biopsy 7 RAMESH ELLINGTON [facility] Social History Combined list of available smoking, tobacco, and other social history from Department of Defense and [facility] facilities. Social History Type Response Date Comment Ryan cannon Tobacco smoking status NHIS VA-TOBACCO USE FORMER CIGARETTES 11/29/2024 [facility] History of tobacco use VA-TOBACCO NEVER USED OTHER TYPE 11/29/2024 [facility] History of tobacco use QUIT TOBACCO >7 YEARS AGO 04/15/2015 [facility] History of tobacco use QUIT TOBACCO >7 YEARS AGO 03/19/2014 [facility] History of tobacco use QUIT TOBACCO >7 YEARS AGO 04/06/2013 [facility] This section is an empty social history section. [facility] Plan of Care List of future care activities from Department of Veterans Affairs facilities. Additional future care activities may be listed in the Assessment and Plan section. Date/Time Care Activity Care Activity Detail Whitneyi ty 05/25/2025 AMBULATORY - SURGERY AMBULATORY - SURGERY [facility]
--- OUTSIDE RECORDS SUMMARY | 2025-04-25 13:00 | XMS_ITS | Encounter Summary ---
Author Organization [facility] Address [address] [place] [address] Care Team Providers Care Chief Operator Name Role Phone Aj Tejeda MD Primary Care Provider [phone] Encounter Details Date Type Department Care Team (Late st Contact Info) Description 02/22/2025 Results Follow-Up [facility] Heart and Vascular - [address] [facility] [address] [address] [facility] [address] [place] [address] [place] [address] [facility] [address] [place] [address] PACER PROGRAM EVAL DUAL LEAD Social History Tobacco Use Types Packs/Day Years Used Date Smoking Tobacco: Never Assessed Feeling Safe Answer Date Recorded Are you in a relationship wi th someone who hurts you emotionally and/or physically? No 01/24/2025 Food Insecurity Answer Date Recorded Patient needs follow up regardin 01/24/2025 Transportation Needs Answer Date Record ed Patient needs follow up regardin 01/24/2025 Utility Needs Answer Date Recorded Patient needs follow up regardin 01/24/2025 Sex and Gender Information Value Date Recorded Sex Assigned at Not on file Legal Sex Male 12:34 PM HOT [employer]AME [employer] Gender Identity Not on file Sexual Orientation Not on file documented as of this encounter Miscellaneous Notes * Result Encounter Note - Primo Estes MD - 02/22/2025 9:28 PM CDT Reviewed and agree with the documentation. documented in this encounter Plan of Treatment Upcoming Encounters Date Type Department Care Team (Late st Contact Info) Description 05/24/2025 1:30 PM CDT Procedure visit [facility] Heart and Vascular - [address] [facility] [address] [address] [facility] [address] [place] [address] documented as of this encounter Visit Diagnoses Not on filedocumented in this encounter Care Teams Chief Operator Relationship Specialty Start Date End Date Aj Tejeda MD [address] [place] [address] PCP - General Family Practice 12/18/24 documented as of this encounter
--- OUTSIDE RECORDS SUMMARY | 2025-04-25 13:00 | XMS_ITS | Encounter Summary ---
Author Organization [facility] Address [address] [facility] [address] [place] [address] Care Team Providers Care Reconciler Name Role Phone Addi Heredia MD Primary Care Provider + [phone] Primo Heredia Primary Care Provider [phone] Addi Heredia MD Primary Care Provider + [phone] Miscellaneous, Not In File Primary Care Provider Unavailable Addi Heredia MD Primary Care Provider + [phone] Tremayne Del Real MD Primary Care Provider [...] Addi Heredia MD Primary Care Provider + [phone] Tremayne Del Real MD Primary Care Provider Addi Heredia MD Primary Care Provider + [phone] Addi Heredia MD Primary Care Provider + [phone] Tremayne Del Real MD Primary Care Provider Addi Heredia MD Primary Care Provider + [phone] Addi Heredia MD Primary Care Provider + [phone] Tremayne Del Real MD Primary Care Provider Addi Heredia MD Primary Care Provider + [phone] Addi Heredia MD Primary Care Provider + [phone] Tremayne Del Real MD Primary Care Provider Addi Heredia MD Primary Care Provider + [phone] Tremayne Del Real MD Primary Care Provider Addi Heredia MD Primary Care Provider + [phone] Tremayne Del Real MD Primary Care Provider Addi Heredia MD Primary Care Provider + [phone] Addi Heredia MD Primary Care Provider + [phone] Tremayne Del Real MD Primary Care Provider Aj Tejeda MD Primary Care Provider Encounter Details Date Type Department Care Team (Late st Contact Info) Description 09/03/2016 Orders Only [facility] Provider, MD Rick [address] [place] [address] Social History Tobacco Use Types Packs/Day Years Used Date Smoking Tobacco: Never Alcohol Use Standard Drinks/Week Comments Yes 0 (1 standard drink = 0.6 oz pur e alcohol) Sex and Gender Information Value Date Recorded Sex Assigned at Not on file 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 Gender Identity Male 04/01/2020 9:43 AM CDT [...] on filedocumented in this encounter Care Teams Reconciler Relationship Specialty Start Date End Date Addi Heredia MD [address] [place] [address] PCP - General 11/27/16 01/18/17 Primo Heredia [address] [place], [place] [id number] PCP - General 10/14/16 11/26/16 Addi Heredia MD [address] [place] [address] PCP - General 08/06/16 10/13/16 Miscellaneous, Not In File PCP - General 01/19/17 Addi Heredia MD [address] [place], [place] [address] PCP - General 01/20/17 04/21/17 Tremayne Del [...] 08/04/1708/08 Addi Heredia MD [address] [place] [address] PCP - General 08/09/17 08/09/17 Tremayne Del Real MD PCP - General 08/10/17 08/17/17 Addi Heredia MD [address] [place] [id number] PCP - General 08/18/17 08/24/17 Addi Heredia MD [address] [place] [address] (Fax) PCP - General 08/25/17 08/25/17 Tremayne Del Real MD PCP - General 08/26/17 09/02/17 Addi Heredia MD [address] [place] [address] (Fax) PCP - General 09/03/17 09/06/17 Addi Heredia MD [address] [place] [address] (Fax) PCP - General 09/07/17 09/13/17 Tremayne Del Real MD PCP - General 09/14/17 09/15/17 Addi Heredia MD [address] [place] [address] (Fax) PCP - General 09/16/17 09/16/17 Addi Heredia MD [address] [place] [address] (Fax) PCP - General 09/17/17 09/29/17 Tremayne Del Real MD PCP - General 09/30/17 10/12/17 Addi Heredia MD [address] [place] [address] (Fax) PCP - General 10/13/17 10/14/17 Tremayne Del Real MD PCP - General 10/15/17 10/15/17 Addi Heredia MD [address] [place] [address] (Fax) PCP - General 10/16/17 10/20/17 Tremayne Del Real MD PCP - General 10/21/17 11/09/17 Addi Herdeia MD [address] [place] [address] (Fax) PCP - General 11/10/17 11/10/17 Addi Heredia MD [address] [place] [address] (Fax) PCP - General 11/11/17 11/21/17 Tremayne Del Real MD PCP - General 11/22/17 10/05/18 Aj Tejeda MD [address] [place] [address] PCP - General 10/06/18 documented as of this encounter
--- OUTSIDE RECORDS SUMMARY | 2025-04-25 13:00 | XMS_ITS | Encounter Summary ---
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
--- OUTSIDE RECORDS SUMMARY | 2025-04-25 13:00 | XMS_ITS | Clinical Summary ---
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 Gender Identity Male 04/01/2020 9:43 AM CDT Sexual Orientation Straight 11/07/2018 9: 10 PM CDT Occupation Industry Job Start Date Job End Date retired Not on file Not on file Not on file Obstetrics History Last Filed Vital Signs Vital Sign Reading Time Taken Comments Blood Pressure 134/72 10/24/2024 2:30 PM PCA [employer] LIVING Pulse 80 10/24/2024 2:30 PM [employer]IV[employer] Temperature 37 C (98.6 F) 02/21/2024 1:23 PM CDT Respiratory Rate 18 04/21/2024 8:50 AM CDT Oxygen Saturation 97% 10/24/2024 2:30 PM PCA [employer] LIVING Inhaled Oxygen Concentration - - Weight 140.6 kg (310 lb) 10/24/2024 2:30 PM [employer]IV[employer] Height 188 cm (6' 2) 10/24/2024 2:30 PM PCA ASS[employer] LIVING Body Mass Index 39.8 10/24/2024 2:30 PM PCA [employer] LIVING Plan of Treatment Health Maintenance Due Date [...] as needed Medical Devices Implanted Type Area Cpr Instructor Device Identifier Shelf Expiration Date Model / Serial / Lot [employer] Proclaim Elite 4.95cmx5.55cm 5 Implantable Pulse Tonic 3660 Contrlsys - [id number] Implanted:Qty: 1 on 05/14/2022 by Shawn Boyce MD PhD at [facility] Other - see comments N/A: Back [employer] 3660 CONTRLSYS / / Description:Pulse generator Spinal Cord Stimulator-06/2017 Implanted:07/30 by Lamonte Donahue MD (Quantity not on file) Spinal Cord Stimulator Back Nevro Alejandra Description:Model name lead1 [id number] Serial [id number] Implanted date 08-09-17 NEVRO SPINAL CORD STIMULATOR Per the vendor, this patients device exceeds the allowed impedence to safely have an MRI without surgical replacement Hip Bilater al: Hip Description:Total hip replac ment x2 [employer] Medical [facility] Vascade Mvp 6-12fr Venous Closure [id number] - [id number] Implanted:Qty: 1 on 02/21/2024 by Abhilash Smith MD at [facility] 11/07/2025 800-612C-10 U / / [id number] [facility] Medical Inc Vascade Mvp 6-12fr Venous Closure [id number] - [id number] Implanted:Qty: 1 on 02/21/2024 by Abhilash Smith MD at [facility] 11/07/2025 800-612C-10 U / / [id number] Vascade Mvp 6-12fr Venous Closure [id number] - [id number] Implanted:Qty: 1 on 02/21/2024 by Abhilash Smith MD at [facility] 11/07/2025 800-612C-10 U / / [id number] Insurance FOR LIFE MEDICARE [facility] MEDICARE MEDICARE FOR LIFE Advance Directives For more information, please contact: [phone] * Full Code (Latest Code Status on File) Date Activated Date Inactivated Comments 07/14/2018 10:13 AM 07/14/2018 12:31 PM Care Teams Salvager Helper Relationship Specialty Start Date End Date Aj Tejeda MD [address] [place] [address] PCP - General 10/06/18
--- OUTSIDE RECORDS SUMMARY | 2025-04-25 13:00 | XMS_ITS | Encounter Summary ---
Author Organization [facility] Healthcare Address [address] [place] [address] Care Team Providers Care Bareback Rider Name Role Phone Aj Tejeda MD Primary Care Provider Reason for Visit * Reason Onset Date Comments Med Refill 11/24/2018 Encounter Details Date Type Department Care Team (Late st Contact Info) Description 11/24/2018 Telephone [facility] [address] [facility] [address] [place] [address] [place] [address] [place] [address], [place] [address] Med Refill Social History Tobacco Use Types Packs/Day Years Used Date Smoking Tobacco: Former Smokeless Tobacco: Never Alcohol Use Standard Drinks/Week Comments Yes 6 (1 standard drink = 0.6 oz pur e alcohol) Sex and Gender Information Value Date Recorded Sex Assigned at Not on file 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
--- OUTSIDE RECORDS SUMMARY | 2025-04-25 13:00 | XMS_ITS | Clinical Summary ---
Author Organization [facility] Address [address] [place] [address] Care Team Providers Care Dinkey Operator Slag Name Role Phone Aj Tejeda MD Primary Care Provider [phone] Allergies Active Allergy Reactions Criticality Noted Date [...] Encounters Date Type Department Care Team Description 04/18/2025 External Device Data [facility] Provider, Abstract 04/17/2025 External Device Data [facility] Provider, Abstract 2025 External Device Data [facility] Provider, Abstract 2025 External Device Data [facility] Provider, Abstract 02/22/2025 11:30 AM CDT Procedure visit [facility] - [address] [place] [phone] [facility] [place] [address] Persistent atrial fibrillation (CMS/HCC) (Primary Dx); Symptomatic bradycardia 02/22/2025 Results Follow-Up [facility] - [address] [place] [id number] [place] [address] [place] [address] Primo Estes MD PACER PROGRAM EVAL DUAL LEAD 02/14/2025 External Device Data [facility] Provider, Abstract 01/31/2025 11:30 AM CDT Office Visit [facility] - [address] [place] [phone] [facility] [address] [place] [address] Bradycardia (Primary Dx) 01/24/2025 1:25 PM CDT - 01/24/2025 3:26 PM CDT Surgery [facility] [address] [place] [address] Joel Smith MD Pacemaker insertion 01/24/2025 1:24 PM CDT Anesthesia Event [facility] [address] [place] [address] Tonie Buck MD 01/24/2025 11:02 AM CDT - 01/24/2025 5:47 PM CDT Hospital Encounter [facility] [place] [place] [address] [address] [place] [address] Joel Smith MD Symptomatic bradycardia Discharge Disposition: [...] on file 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 Gender Identity Not on file Sexual Orientation [...] Description 05/24/2025 1:30 PM CDT Procedure visit [facility] - [address] [facility] [address] [address] [facility] [address] [place] [address] Health Maintenance Due Date Last Done Comments Traditional Medicare (ACO) A nnual Wellness Visit 1964 ZOSTER VACCINE (2 of 3) 07/18/2013 05/23/2013 PNEUMOCOCCAL VACCINE 50+ YEA RS (2 of 2 - PCV20 or PCV21) 04/15/2016 04/15/2015, 04/06/2013 RSV VACCINE (60+ or ) (1 - 1-dose 75+ series) 2018 DTAP/TDAP/TD VACCINES (2 - Td or Tdap) 10/28/2021, 05/08/2011 INFLUENZA VACCINE (#1) 2025 Medical Devices Implanted Type Area Inventory Assistant Device Identifier Shelf Expiration Date Model / Serial / Lot Hemostatic Surg Powder 3013sp - [id number] Implanted:Qty: 1 on 01/24/2025 by Joel Smith MD at [facility] Hemostatic Left: Chest [employer] [id number] 03/29/2026 3013SP / / [id number] Lead Capsurefix Novus Mri 58cm Endocardial Pacing 5077 5076-58 - [id number] Implanted:Qty: 1 on 01/24/2025 by Joel Smith MD at [facility] Lead Left: Chest [employer]- CRM - BULK BUY [id number] 09/14/2026 5076-58 / [id number] 9V / Lead Capsurefix Novus Mri 52cm Endocardial Pacing 5076-52 - [id number] Implanted:Qty: 1 on 01/24/2025 by Joel Smith MD at [facility] Lead Left: Chest [employer]- CRM - BULK BUY [id number] 11/17/2026 5076-52 / [id number] 0V / Pacemaker Kelley Xt Dr Mri Ipg Dual Chmbr Surescan W1dr01 - [id number] Implanted:Qty: 1 on 01/24/2025 by Joel Smith MD at [facility] Pacemaker Left: Chest [employer]- CRM - BULK BUY [id number] 06/12/2026 W1DR01 / [id number] / Procedures Procedure Name Priority Date/Time Associated Diagnosis Comments AR PROGRAM EVAL IMPLANTABLE IN PERSN DUAL LD [...] CDT Symptomatic bradycardia Atrial fibrillation, persistent (CMS/HCC) from Last 3 Months Results * AR PROGRAM EVAL IMPLANTABLE IN PERSN DUAL LD PACER (02/22/2025 11:21 AM CDT) Narrative [facility] - 02/22/2025 11:21 AM CDT [...] thresholds are all within normal limits. AP-80.4%, [place]NER-9%. The underlying rhythm during today's evaluation is sinus rhythm with a first degree AV block. No arrhythmias have been detected by the device. The patient is to follow-up in the device clinic in 3 months. We will follow his device and arrhythmia status remotely via the [employer] remote follow up system. The patient was [...] sensing thresholds are all within normallimits. AP-80.4%, [place]NER-9%. The underlying rhythm during today's evaluationis sinus rhythm with a first degree AV block. No arrhythmias have beendetected by the device. The patient is to follow-up in the device clinic in 3 months. We willfollow his device and arrhythmia status remotely via the [employer] remotefollow up system. The patient was instructed to call the office with anyquestions or concerns. Conclusion: Normal device function. No arrhythmias. us Primo Estes MD CARDIAC SERVICES ORDERABLES F inal Result [facility] [address] [facility] [place] [address] * TELEMETRY REPORT (01/26/2025 3:12 PM CDT) [...] heart size is normal. DICTATION LOCATION: Location [address] [place] [address] Narrative 01/24/2025 3:30 PM CDT EXAMINATION: XR [...] recorded. Images were taken in RAMOS and MACEDONIAN views to ensure appropriate lead placement. The [...] parameters and device programming: -RA Lead 5076 (#[id number] ): Sensing 5 mV, Pacing threshold 0.5 V at 0.4 ms, Imp 494 Ohm -RV Lead 5076 (#[id number] ): Sensing 11 mV, Pacing threshold 1.0 V at 0.4 ms, Imp 1045 Ohm -Device: Medtronic Ruston XT DR MRI W1DR01 pacemaker (#[id number] ), programmed AAIR<==>DDDR 60-130 Conclusions: Successful placement of a dual-chamber pacemaker Successful synchronized cardioversion Subclavian venography Recommendations: Discharge later this evening if discharge parameters are met. Portable chest x-ray in holding area. Continue Eliquis 5 mg twice daily uninterrupted Follow-up will be arranged in our office 7-10 days post-discharge Joel Smith MD Clinical Cardiac Automotive Services Manager Procedure Note Joel Smith MD - 01/24/2025 [...] was recorded. Imageswere taken in RAMOS and MACEDONIAN views to ensure appropriate lead placement. Thelead [...] parameters and device programming: -RA Lead 5076 (#[id number] ): Sensing 5 mV, Pacing threshold 0.5 V at 0.4ms, Imp 494 Ohm -RV Lead 5076 (#[id number] ): Sensing 11 mV, Pacing threshold 1.0 V at 0.4ms, Imp 1045 Ohm -Device: Medtronic Ruston XT DR MRI W1DR01 pacemaker (#[id number] ),programmed AAIR<==>DDDR 60-130 Conclusions: Successful placement of a dual-chamber pacemaker Successful synchronized cardioversion Subclavian venography Recommendations: Discharge later this evening if discharge parameters are met. Portable chest x-ray in holding area. Continue Eliquis 5 mg twice daily uninterrupted Follow-up will be arranged in our office 7-10 days post-discharge Joel Smith MD Clinical Cardiac Automotive Services Manager us Joel Smith MD CUP EP ORDERABLES Izzy l Result * EKG 12-LEAD (01/24/2025 11:18 AM CDT) 01/24/2025 11:1 8 AM CDT Narrative INTERFACE SYSTEM - 01/24/2025 1:24 [place] [address] Test Date: 2025-01-24 Pat Name: JASON DAIGLE Department: 60 Room: CCL PRE PO CCL PRE PO Gender: Male Lead Application Architect: HD : 1945 Requested By: JOEL DIEGO Order Number: [id number] Reading : Lamonte Valero Measurements Intervals Kyle Rate: 78 P: 0 AR: 0 QRS: -35 QRSD: 134 T: 50 QT: 370 QTc: 421 Interpretive Statements Atrial fibrillation Right bundle branch block Low voltage Nonspecific ST-T changes No previous ECG available for comparison Electronically Signed On 01-24-2025 13:24:23 CDT by Lamonte Valero Procedure Note Lamonte Valero MD - 01/24/2025 [place] [address] Test Date: 2025-01-24 Pat Name: JASON DAIGLE Department: 60 Room: CCL PRE PO CCL PRE PO Gender: Male Lead Application Architect: HD : 1945 Requested By: JOEL HINOJOSA Order Number: [id number] Reading : Lamonte Valero Measurements Intervals Kyle Rate: 78 P: 0 AR: 0 QRS: -35 QRSD: 134 T: 50 QT: 370 QTc: 421 Interpretive Statements Atrial fibrillation Right bundle branch block Low voltage Nonspecific ST-T changes No previous ECG available for comparison Electronically Signed On 01-24-2025 13:24:23 CDT by Lamonte Valero us Joel Smith MD ECG ORDERABLES Final Result INTERFACE SYSTEM Refer to clinic/hospital department from Last 3 Months Insurance [employer] MEDICARE PART A AND B FOR LIFE Care Teams Dinkey Operator Slag Relationship Specialty Start Date End Date Aj Tejeda MD [address] [facility] [address] [place] [address] PCP - General Family Practice 12/18/24
--- OUTSIDE RECORDS SUMMARY | 2025-04-25 13:00 | XMS_ITS | Encounter Summary ---
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
--- OUTSIDE RECORDS SUMMARY | 2025-04-25 13:00 | XMS_ITS | Clinical Summary ---
Author Organization [facility] Address [facility] [place] [address] Care Team Providers Care Block Operator Name Role Phone Unavailable Primary Care Provider [...]
[2025-04-25 13:55] LABS: INR 1.3; Prothrombin Time 15.6 Seconds (11.1-14.7)
[2025-04-25 13:56] LABS: Partial Thromboplastin Time 37.2 Seconds (22.3-36.8)
== END 2025-04-25 12:45 | disposition home or self-care (01) ==
LOC: ANHSURGERY 12:49
PROVIDERS: Anesthesiology; PCP Family Medicine; Visit Provider Urology
DX: Z01.818 Encounter for other preprocedural examination (principal); N18.30 Chronic kidney disease, stage 3 unspecified; N18.31 Chronic kidney disease, stage 3a
CPT/HCPCS: 36415; 85610; 85730

== ENCOUNTER 2025-05-03 00:21 | Day surgery (SDC) | payer MEDICARE, OTHER, SELFPAY ==
[2025-04-19 13:36] VITALS: BMI 37.7
--- NOTE | 2025-04-19 13:46 | PC.NURSE ---
Addendum entered by Radha Logan RN 04/19/25 14:12: Daughter also reminded to bring in spine stimulator remote so it can be turned off for surgery ROSAS Addendum entered by Radha Logan RN 04/19/25 13:55: Pt also to hold the Zepbound for 10 days prior per Anesthesia, last dose is 04/21/25 JRRN Original Note: Report to the Outpatient Waiting Room, entrance under the green pavilion located off [address], at time ___0700am____ on date __05/03/25 . Planned Procedure Time: _0900am .? Time changes happen often and if your time is changed the preop area will call you the afternoon before. - You and your visitor will be asked to self-screen and do not enter if you have any COVID symptoms. Please call surgeon if you need to reschedule. - A mask is optional within the hospital at this time. Patients may have clear liquids (water, carbonated beverages, clear teas, apple juice) until 3 hours prior to surgery with a maximum of 20 ounces. - No food from midnight until time of surgery and no smoking, or chewing tobacco (or any form of nicotine). No chewing gum, candy or mints. Take only the following medications with a SIP of water on the morning of surgery: ___Amiodarone, gabapentin, Inhalers Albuteral, Stiolto DO NOT STOP ANY OF YOUR OTHER PRESCRIPTION MEDICATIONS PRIOR TO SURGERY EXCEPT THE FOLLOWING Hold all vitamins and supplements for 3 days per anesthesiologist. Medications to discontinue per physician __HOLD Eliquis for [address] Webb/and if ok w Dr Olivarez Date to take last dose___04/29/25 Please no make-up, nail filipino, hairspray, perfume, deodorant, or body powder the day of surgery.? No jewelry (including any body piercings) or valuables the day of surgery, leave them at home.? Please take a shower or bath the night before, or the morning of, surgery with an antibacterial soap.? Wear comfortable, loose fitting clothing.? - Jewelry must be removed prior to entering the operating room.? Rings and piercings that are not removed may be cut off. - The hospital will not accept responsibility for valuables.? - Please leave all valuables, including medications, at home the day of surgery. If you are going home after surgery, a licensed cdl team truck driver must drive you home.? - NO public transportation without another adult if you receive anesthesia. - We recommend that an adult stay with you for 24 hours following discharge. - We also recommend that you do not drive, make important decision, drink alcoholic beverages, or take any drugs that were not prescribed by your health care provider for at least 24 hours after your discharge time. Follow any additional instructions given to you from your surgeon. Telephone instructions given to ___patient and meds reviewed w Daughter Alanis and asked if any additional questions and then verbalized understanding. Patient advised to call surgeon office or pre surgery nurse liaison [phone] if any additional questions.
[2025-05-03] VITALS (8 sets, daily range): BP systolic 153–179; BP diastolic 61–87; PULSE 60–70; RESP 14–18; TEMP 36.4–37.3; O2SAT 94–100; BMI 37.8
--- NOTE | 2025-05-03 06:01 | WPDHPUPDATE1 ---
History and Physical Update Update Date/Time: 05/03/25 06:01 History and Physical has been reviewed, including an updated exam of the patient. There are NO changes in the patient's condition. Risks, benefits, and alternatives have been discussed and questions answered. Patient agrees to proceed with procedure.
[2025-05-03] MEDS: LACTATED RINGERS 1,000 ML 30 ML IV CONT (07:30)
[2025-05-03 07:45] LABS: INR 1.1; Partial Thromboplastin Time 35.0 Seconds (22.3-36.8); Prothrombin Time 13.8 Seconds (11.1-14.7)
--- NOTE | 2025-05-03 07:49 | WPDANESEPPF ---
Anes - Initial Pre Proc Eval Procedure: Operation Date: 05/03/25 09:00 Proposed Procedures p Bilateral Spermatocelectomy - Shar Webb MD s Bilateral Hydrocelectomy - Shar Webb MD Date/Time: 05/03/25 07:49 Surgeon: Shar Webb MD Pre Op Diagnosis: Simon Spermatocele, Simon Hydrocele Patient Data Age: 80 Gender: M Height: 1.85 m Weight: 130 kg Last Vital Signs Temp 37.3 C 05/03/25 07:00 Pulse 64 05/03/25 07:00 Resp 16 05/03/25 07:00 BP 159/66 H 05/03/25 07:00 Pulse Ox 98 05/03/25 07:00 Allergies Allergy/AdvReac Type Severity Reaction Status Date / Time morphine Allergy Severe Confusion/Severe Verified 04/19/25 13:27 agitation/AGRESSIVE Home Medications ?Medication ?Instructions ?Recorded ?Confirmed ?Type ascorbic acid (vitamin C) 1,000 mg 1,000 mg PO DAILY 07/21/21 05/03/25 History tablet furosemide 20 mg tablet (Lasix) 40 mg PO PRN PRN Edema 07/21/21 05/03/25 History apixaban 5 mg tablet (Eliquis) 5 mg PO Q12HR a-fib #60 tabs 07/30/23 05/03/25 Rx docusate sodium 100 mg capsule 100 mg PO .prn 06/08/24 04/19/25 History (Colace) cholecalciferol (vitamin D3) 125 125 mcg PO DAILY 06/12/24 05/03/25 History mcg (5,000 unit) tablet cyclosporine 0.05 % eye drops in a 1 drp EACH EYE BID 06/12/24 04/19/25 History dropperette glucosamine sulf dipot 2 cap PO DAILY 06/12/24 05/03/25 History chlr,msm,chond 550 mg-C 30 mg-afusto 1 mg capsule (Glucosamine Chondroitin) melatonin 10 mg capsule 10 mg PO HS PRN Insomnia 06/12/24 04/19/25 History turmeric 400 mg capsule 400 mg PO DAILY 06/12/24 05/03/25 History potassium chloride 10 mEq 10 meq PO DAILY #90 tabs 08/15/24 05/03/25 Rx tablet,extended release albuterol sulfate 90 mcg/actuation See Rx Instructions .Route 11/20/24 04/19/25 Rx aerosol inhaler .COMPLEX #25.5 grams tiotropium 2.5 mcg-olodaterol 2.5 See Rx Instructions .Route 12/11/24 04/19/25 Rx mcg/actuation mist for inhalation .COMPLEX #12 grams (Stiolto Respimat) gabapentin 100 mg capsule 100 mg PO BID #180 caps 02/12/25 05/03/25 Rx fenofibrate 54 mg tablet 54 mg PO DAILY #90 tabs 03/12/25 05/03/25 Rx tirzepatide (weight loss) 7.5 See Rx Instructions .Route 03/14/25 05/03/25 Rx mg/0.5 mL subcutaneous pen .COMPLEX #2 mL injector (Zepbound) amiodarone 200 mg tablet (Pacerone) 100 mg (1/2 x 200 mg) PO 04/02/25 05/03/25 Rx DAILY@0800 #90 tabs losartan 100 mg tablet 100 mg PO DAILY #30 tabs 04/19/25 05/03/25 Rx tamsulosin 0.4 mg capsule 0.4 mg PO Q24H 04/19/25 04/19/25 History Laboratory Tests 05/03/25 07:28 PT 13.8 Seconds (11.1-14.7) INR 1.1 APTT 35.0 Seconds (22.3-36.8) Patient hx anesthesia problems: none Family hx anesthesia problems: none Results Review: All pre-operative results and documents have been reviewed as part of the pre-operative evaluation. [facility] Past Medical History Medical History Lymphedema Constipation Oropharyngeal dysphagia Chronic kidney disease Impaired fasting glucose Obstructive sleep apnea on CPAP Chronic obstructive pulmonary disease Benign prostatic hyperplasia CKD (chronic kidney disease) stage 3, GFR 30-59 ml/min Gross hematuria Obesity History of tobacco abuse COPD (chronic obstructive pulmonary disease) MELANIE on CPAP Right leg DVT Hearing loss Surgical History Surgical History Hx of colectomy Hx of transurethral resection of prostate H/O left nephrectomy History of bilateral hip arthroplasty History of left nephrectomy History of partial colectomy Sacral nerve stimulator present History of appendectomy Family History Family History Sibling Malignant neoplasm of prostate Family history of lung cancer Family history of pancreatic cancer Hypertension Father Chronic obstructive pulmonary disease Social History Social History Social History: Surrogate medical decision maker: Roxana Quintanilla, daughter. Code status: Full code. Smoking packs per day: 2 Smoking cigarettes per day: 40.0 Years smoked: 40 Smoking pack-years: 80.00 Smoking status: Former smoker Tobacco type: cigarettes Second hand tobacco smoke exposure: Yes Smoking end date: 08/30/03 Alcohol intake: current Drinks per week: 4 Alcohol use details: 5-6 BEERS/WEEK Substance use: never Substance use type: does not use Do You Feel Safe in your Home?: Yes Lack of Transportation: No Lack of Food: Never True Current Housing: I Have Housing Concerned About Future Housing: No Difficulty Paying Gas/Electric Bills: No Difficulty Paying for Meds: No Currently Unemployed: No Education: Master's Degree or Higher Difficulty w/ Childcare or Family Care: No Living arrangements: with family Additional living arrangements comments: Daughter and Son in Law Occupation/Education: retired Additional occupation/education comments: 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 Gender identity (if verbalized by the patient): Male Sexual Orientation (if Verbalized by the Patient): Straight or Heterosexual Spiritual care concerns: No Anes - Eval Final PreProcedure Day of Procedure 05/03/25 07:49 Patient weight: obese Heart: irregular rhythm Lungs: decreased breath sounds Airway: Mallampati scale class III Neurological: alert and oriented Last oral intake: >/= 8 hours ASA classification: IV Emergent: no Anesthetic plan: proceed Anesthesia type and monitoring: general LMA and standard monitoring Results Review: All pre-operative results and documents have been reviewed as part of the pre-operative evaluation. Informed Consent: The patient's anesthetic plan and its attendant risks and benefits were discussed with the patient/family/POA. Questions were solicited and answers provided to the satisfaction of the patient/family/POA.
[2025-05-03] MEDS: ceFAZolin 3 GM/D5W 100 ML 100 ML IVPB (08:38)
--- NOTE | 2025-05-03 09:07 | S_PTH ---
PATIENT: Jason Daigle LOC: [facility] U#:[id number] AGE/SX: 80/M ROOM: RE05/03/[address]: Shar Webb MD : 1945 BED: DIS: 05/03/2025 SPEC #: [id number] RECD: 05/03/25 10:38 STATUS: BROOKS REQ #: [id number] WILLAM: 05/03/25 09:[address]: Shar eWbb DEPT: [facility] Surgical RECD BY: Kena Jones ENTERED: 05/03/25 10:38 SP TYPE: Surgical OTHR DR: Aj Tejeda MD Tissues: A - Spermatocele Sac B - Spermatocele Sac Procedures: Hematoxylin and Eosin Stain Gross and Microscopic Level 3
[2025-05-03] MEDS: LIDOCAINE 1% LOCAL INJ 10 ML VIAL 20 ML INFILTRATE (09:31)
--- NOTE | 2025-05-03 09:37 | W.PM.PROC2 ---
Procedure Note - Detailed Date of Procedure 05/03/25 Pre-op Diagnosis Simon Spermatocele, Simon Hydrocele Post-op Diagnosis Same Procedure Performed Bilateral hydrocelectomy, bilateral spermatocelectomy Surgeon Shar Webb MD Anesthesia General Description of Procedure Patient is brought to the operative suite was prepped draped in routine sterile fashion while in dorsal lithotomy position after the uneventful induction of a general LMA anesthetic. Incision is made in the median raphe of the scrotum and dissection was 1st carried into the left tunica vaginalis. He has a small hydrocele which was drained. 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 Dissection is carried down to its origin at the left epididymis and the spermatocele sac is completely excised. Hemostasis obtained with electrocautery. Because of the small hydrocele I opted not to do a bottle neck procedure on the left. Left testicle returned to orthotopic position. The right testicle was delivered through the same midline incision by incising the tunica vaginalis. He has a large hydrocele on the right. The hydrocele sac is everted in a bottle neck fashion using 4-0 chromic. He has a small spermatocele which is dissected to its origin in a similar fashion. Hemostasis is obtained bilaterally. The right testicle was returned to an orthotopic position. The dartos muscle was closed with running 4-0 chromic and skin was likewise closed with running 4-0 chromic. 1% plain lidocaine was injected in the incision for pain management. Blood loss was estimated at 30 cc. Drains No Packing No Pathology Yes Complications No immediate complications
--- NOTE | 2025-05-03 09:40 | SUR.OPER ---
transmitter turned off prior to procedure. Transmitter turned back on and settings resumed following procedure
[2025-05-03] MEDS: oxyCODONE HCL (*CRX) 2.5 MG TAB IR PO (10:35)
[2025-05-03] MEDS: fentaNYL CITRATE INJ (*CRX) 100 MCG/2 ML VIAL 25 MCG IV PUSH ×2 (10:50→10:52)
== END 2025-05-03 11:43 | disposition home or self-care (01) ==
PROVIDERS: Anesthesiology; PCP Family Medicine; Visit Provider Urology
PROC: (CPT 54840; principal; 2025-05-03 09:00)
PROC: (CPT 55040; 2025-05-03 09:00)
DX: N43.3 Hydrocele, unspecified (principal); N43.42 Spermatocele of epididymis, multiple; N18.30 Chronic kidney disease, stage 3 unspecified; Z79.01 Long term (current) use of anticoagulants; Z87.891 Personal history of nicotine dependence; E66.9 Obesity, unspecified; Z68.37 Body mass index [BMI] 37.0-37.9, adult
CPT/HCPCS: 55040; 55060; 36415; 85610; 85730; 88304; A9270; J0690; J2003; J2004; J2704; J3010; J7120

== ENCOUNTER 2025-06-07 12:38 | Outpatient (CLI) | payer MEDICARE, OTHER, SELFPAY ==
[2025-06-07 14:30] LABS: Alanine Aminotransferase 13 U/L (6-50); Albumin Level 4.0 g/dL (3.5-5.1); Alkaline Phosphatase 62 U/L (38-126); Anion Gap 9 mmol/L (4-12); Aspartate Amino Transferase 18 U/L (17-59); Bilirubin,Total 0.5 mg/dL (0.2-1.3); Blood Urea Nitrogen 16 mg/dL (9-20); Calcium 9.7 mg/dL (8.4-10.2); Carbon Dioxide 28 mmol/L (22-30); Chloride 102 mmol/L (98-107); Estimated Glomerular Filt Rate 46; Glucose 83 mg/dL (65-110); Potassium 3.6 mmol/L (3.4-5.0); Sodium 139 mmol/L (137-145); Total Protein 7.1 g/dL (6.3-8.2)
[2025-06-07 16:17] LABS: Parathyroid Intact 15.4 pg/mL (14.5-75.2)
[2025-06-08 18:08] LABS: Calcium, Ionized 5.2 mg/dL (4.5-5.6)
== END 2025-06-07 12:39 | disposition home or self-care (01) ==
PROVIDERS: Physician Assistant Medical; PCP Family Medicine
DX: E83.52 Hypercalcemia (principal); I10 Essential (primary) hypertension
CPT/HCPCS: 36415; 80053; 82306; 82330; 83970; 84100

== ENCOUNTER 2025-08-27 15:50 | Outpatient (CLI) | payer MEDICARE, OTHER, SELFPAY ==
--- NOTE | ~2025-08-27 | XR_ITS ---
XR chest 2V HOSTORY: Chronic cough COMPARISON:[ None] FINDINGS: Frontal and lateral views of the chest were obtained. Bibasal atelectasis are noted. No focal consolidation, pleural effusions or pneumothorax.. The heart size is normal in size. Pulmonary vasculature is unremarkable. Osseous structures are intact. IMPRESSION: Bibasilar atelectasis. [ ] Reviewed, dictated and finalized at location S. [facility] WEIGHER IMPRESSION: Bibasilar atelectasis. [ ]
== END 2025-08-27 15:51 | disposition home or self-care (01) ==
PROVIDERS: PCP Family Medicine; Visit Provider Internal Medicine Cardiovascular Disease
DX: J98.11 Atelectasis (principal)
CPT/HCPCS: 71046